=== PATIENT | male | born 1945 | race Caucasian/White ===

== ENCOUNTER 2017-10-11 11:10 | Day surgery (SDC) | payer BC, OTHER ==
[2017-10-09 14:56] LABS: Urine Appearance CLEAR; Urine Bilirubin NEGATIVE (NEG); Urine Blood NEGATIVE (NEG); Urine Color YELLOW; Urine Glucose NEGATIVE (NEG); Urine Protein NEGATIVE (NEG); Urine Urobilinogen 0.2 mg/dL (0.2-1.0); Urine pH 7.5 (5.0-7.0)
[2017-10-09 14:59] LABS: Urine Microscopic Reflex NO UMIC
[2017-10-09 15:05] LABS: Absolute Lymphocytes (CBC) 1.2 K/uL (0.7-4.9); Absolute Monocytes 0.6 K/uL (0.1-1.3); Absolute Neutrophil 3.8 K/uL (1.8-8.0); Basophils % 0.4 % (0-1.3); Eosinophils % 3.3 % (0-4.4); Hematocrit 45.1 % (39.6-49.0); Lymphocytes % 20.7 % (15.3-44.8); MCH 29.3 pg (27.0-35.0); MCV 90.2 fL (80-100); MPV 7.6 fL (7.6-11.3); Monocytes % 9.8 % (3.3-12.3)
[2017-10-09 15:24] LABS: Protime INR 1.01
--- NOTE | 2017-10-09 15:30 | RAD REPORT ---
EXAM DESCRIPTION: RADOP - Outpt Chest Pa/Lat (2 Views) - 10/09/2017 2:52 pm CLINICAL HISTORY: Preop chest, hypertension COMPARISON: None. TECHNIQUE: PA and lateral views of the chest were obtained. FINDINGS: The lungs are normal volume. Patient has prominent interstitial lung disease. No one focal consolidation or mass. Failure is not suspected. Heart size is normal and central vasculature is wi thin normal limits. No pleural effusion or pneumothorax seen. Thoracic spine bony degenerative change s are present. Aortic tortuosity is present without aneurysm. IMPRESSION: Interstitial thickening is present throughout both lung cruz with relative sparing of the lower left lung field. In the absence of acute respiratory symptoms, this is mostly extensive interstitial fibrosis. No failure or suspicious mass.
[2017-10-09 15:33] LABS: BUN Blood Urea Nitrogen 10 mg/dL (6-20); Bicarbonate 25 mEq/L (21-31); Glomerular Filtration Rate > 90 mL/min (=/>90); Glucose Level 104 mg/dL (65-120); Potassium 4.2 mEq/L (3.6-5.0); Sodium Level 136 mEq/L (135-145)
--- NOTE | 2017-10-09 15:35 | EKG ---
Test Date: 2017-10-09 Test Time: 14:40:08 Brand Protection Manager: ANNE MEASUREMENT RESULTS: Intervals: Rate: 66 GA: 142 QRSD: 70 QT: 408 QTc: 427 [place]: P: -29 GA: 142 QRS: -17 T: 9 INTERPRETIVE STATEMENTS: Sinus rhythm with premature atrial complexes Otherwise normal ECG Compared to ECG 12/11/2003 06:34:00 Atrial premature complex(es) now present Electronically Signed On 10-09-17 15:34:16 CDT by Anastacio Garcia
[2017-10-11] MEDS ORDERED: GENTAMICIN 80 MG/100 ML BAG 80 MG/100 ML BAG IV ONE (12:08)
[2017-10-11] MEDS ORDERED: Ringers Lactate 1,000 ML IV ONE (12:08)
[2017-10-11] MEDS ORDERED: PROPOFOL 200 MG/20 ML VIAL IV ONE (12:12)
[2017-10-11] MEDS ORDERED: FENTANYL CITR 100 MCG/2 ML ONE ×2 (12:13→14:05)
[2017-10-11] MEDS ORDERED: ONDANSETRON 4 MG/2 ML VIAL ONE (12:14)
[2017-10-11] MEDS ORDERED: LIDOCAINE 2% MPF 5 ML VIAL ONE (12:14)
[2017-10-11] MEDS ORDERED: PHENAZOPYRIDINE 100MG TAB PO ONE (15:02)
[2017-10-11] MEDS ORDERED: OXYBUTYNIN CHLORIDE 5 MG TAB ONE (15:05)
[2017-10-11] MEDS ORDERED: MIDAZOLAM HCL 2 MG/2 ML INJ ONE (15:08)
[2017-10-11] MEDS ORDERED: HYDROCODONE/APAP 10/325 TAB ONE (15:51)
== END 2017-10-11 16:30 | disposition home or self-care (01) ==
LOC: OR 11:10
PROVIDERS: ATTEND Urology
DX: I10 Essential (primary) hypertension; N40.1 Benign prostatic hyperplasia with lower urinary tract symptoms; E78.00 Pure hypercholesterolemia, unspecified; K21.9 Gastro-esophageal reflux disease without esophagitis; R39.12 Poor urinary stream
CPT/HCPCS: 36415; 52601; 71046; 80048; 81003; 85025; 85610; 85730; 87086; 87088; 88305; 93005; J1580; J2250; J2405; J3010 ×2

== ENCOUNTER 2018-03-13 04:47 | Emergency (ER) | payer OTHER, BC ==
[2018-03-13 05:40] LABS: Absolute Lymphocytes (CBC) 0.8 K/uL (0.7-4.9); Absolute Monocytes 0.4 K/uL (0.1-1.3); Basophils % 0.5 % (0-1.3); Hematocrit 42.5 % (39.6-49.0); MCH 30.2 pg (27.0-35.0); MCV 88.7 fL (80-100); MPV 7.6 fL (7.6-11.3); Monocytes % 12.4 % (3.3-12.3); RBC Red Blood Cell Count 4.79 M/uL (4.33-5.43)
[2018-03-13 06:01] LABS: ALT/SGPT 30 U/L (12-78); AST/SGOT 19 U/L (15-37); Albumin 3.4 g/dL (3.4-5.0); Alkaline Phosphatase 79 U/L (45-117); Amylase Level 33 U/L (25-115); BUN Blood Urea Nitrogen 8 mg/dL (7-18); Bicarbonate 24 mmol/L (21-32); Bilirubin Direct < 0.1 mg/dL (0-0.2); Bilirubin Total 0.4 mg/dL (0.2-1.0); CKMB Creatine Kinase MB < 1.0 ng/mL (0.3-3.6); Creatine Phosphokinase 59 U/L (39-308); Glucose Level 115 mg/dL (74-106); Lipase 90 U/L (73-393); Magnesium 2.4 mg/dL (1.8-2.4); NT PRO-BNP 120 pg/mL (<125); Potassium 3.6 mmol/L (3.5-5.1); Protein, Total 7.2 g/dL (6.4-8.2); Sodium Level 142 mmol/L (136-145)
--- NOTE | 2018-03-13 08:06 | EDPHYS ---
Physician Documentation [facility] Name: Randall Chaves Age: 72 yrs Sex: Male : 1945 Arrival Date: 03/13/2018 Time: 04:49 Bed 7 Private MD: ED Physician Luis F Mendez HPI: 03/13 06:40 This 72 yrs old Male presents to ER via EMS with complaints of Chest tw4 Congestion. 06:40 The patient or guardian reports cough. Onset: The symptoms/episode began/occurred tw4 today. Severity of symptoms: At their worst the symptoms were moderate, in the emergency department the symptoms are unchanged. Modifying factors: The symptoms are alleviated by nothing, the symptoms are aggravated by nothing. Associated signs and symptoms: The patient has no apparent associated signs or symptoms. The patient has not experienced similar symptoms in the past. Historical: - Allergies: 04:55 No Known Allergies; ao - Home Meds: 04:55 Lipitor Oral [Active]; Metoprolol Tartrate Oral [Active]; losartan oral oral [Active]; ao atorvastatin oral oral [Active]; - PMHx: 04:55 Hyperlipidemia; Hypertension; ao - PSHx: 04:55 Prostate; ao - Immunization history:: Adult Immunizations up to date. - Social history:: Smoking status: Patient/guardian denies using tobacco, Patient uses alcohol, occasionally. Patient/guardian denies using street drugs, IV drugs. - Ebola Screening: : Patient negative for fever greater than or equal to 101.5 degrees Fahrenheit, and additional compatible Ebola Virus Disease symptoms Patient denies exposure to infectious person Patient denies travel to an Ebola-affected area in the 21 days before illness onset. ROS: 06:40 Constitutional: Negative for fever, chills, and weight loss, Cardiovascular: Negative tw4 for chest pain, palpitations, and edema, Abdomen/GI: Negative for abdominal pain, nausea, vomiting, diarrhea, and constipation. 06:40 MS/Extremity: Negative for injury and deformity, Skin: Negative for injury, rash, and discoloration. 06:40 Respiratory: Positive for Exam: 06:40 Constitutional: This is a well developed, well nourished patient who is awake, alert, tw4 and in no acute distress. Head/Face: Normocephalic, atraumatic. Chest/axilla: Normal chest wall appearance and motion. Nontender with no deformity. No lesions are appreciated. Cardiovascular: Regular rate and rhythm with a normal S1 and S2. No gallops, murmurs, or rubs. Normal PMI, no JVD. No pulse deficits. Respiratory: Lungs have equal breath sounds bilaterally, clear to auscultation and percussion. No rales, rhonchi or wheezes noted. No increased work of breathing, no retractions or nasal flaring. Abdomen/GI: Soft, non-tender, with normal bowel sounds. No distension or tympany. No guarding or rebound. No evidence of tenderness throughout. MS/ Extremity: Pulses equal, no cyanosis. Neurovascular intact. Full, normal range of motion. Neuro: Awake and alert, GCS 15, oriented to person, place, time, and situation. Cranial nerves II-XII grossly intact. Motor strength 5/5 in all extremities. Sensory grossly intact. Cerebellar exam normal. Normal gait. Vital Signs: 04:57 BP 151 / 91; Pulse 60; Resp 18; Temp 97.3(TE); Pulse Ox 96% on R/A; Weight 106.59 kg; ao Height 5 ft. 9 in. (175.26 cm); Pain 0/10; 06:15 BP 129 / 98; Pulse 57; Resp 16; Pulse Ox 93% on R/A; Pain 0/10; ao 07:00 BP 144 / 80; Pulse 57; Resp 17; Pulse Ox 95% on R/A; Pain 0/10; sg 08:27 BP 132 / 87; Pulse 58; Resp 18; Temp 97.4; Pulse Ox 97% on R/A; ph 04:57 Body Mass Index 34.70 (106.59 kg, 175.26 cm) ao MDM: 04:55 Patient medically screened. tw4 08:04 Differential Diagnosis: Bronchitis Influenza. Data reviewed: vital signs, nurses notes. tw4 Data interpreted: Pulse oximetry: Interpretation: normal. Counseling: I had a detailed discussion with the patient and/or guardian regarding: the historical points, exam findings, and any diagnostic results supporting the discharge/admit diagnosis. Special discussion: I discussed with the patient/guardian in detail that at this point there is no indication for admission to the hospital. It is understood, however, that if the symptoms persist or worsen the patient needs to return immediately for re-evaluation. 03/13 04:56 Order name: Amylase, Serum; Complete Time: 08:00 03/13 04:56 Order name: Blood Culture Adult (2) 03/13 04:56 Order name: BMP; Complete Time: 08:00 03/13 08:00 Interpretation: Normal except: CL 110; GFR 83; GLUC 115. 03/13 04:56 Order name: CBC with Diff; Complete Time: 08:00 03/13 08:00 Interpretation: WBC 3.5; MPV 7.6. 03/13 04:56 Order name: Ckmb; Complete Time: 08:00 03/13 04:56 Order name: CPK; Complete Time: 08:00 03/13 04:56 Order name: D-Dimer; Complete Time: 08:00 03/13 08:02 Interpretation: Normal except: D-DIMER 949. 03/13 04:56 Order name: Hepatic Function; Complete Time: 08:00 03/13 04:56 Order name: Lipase; Complete Time: 08:00 03/13 04:56 Order name: Magnesium; Complete Time: 08:00 03/13 04:56 Order name: NT PRO-BNP; Complete Time: 08:00 03/13 04:56 Order name: PT-INR; Complete Time: 08:00 03/13 04:56 Order name: Ptt, Activated; Complete Time: 08:00 03/13 04:56 Order name: Troponin (emerg Dept Use Only); Complete Time: 08:00 03/13 04:56 Order name: XRAY CXR (1 view) 03/13 04:56 Order name: EKG; Complete Time: 04:57 03/13 04:56 Order name: Cardiac monitoring; Complete Time: 05:17 03/13 04:56 Order name: EKG - Nurse/Tech; Complete Time: 05:30 03/13 04:56 Order name: IV Saline Lock; Complete Time: 05:17 03/13 04:56 Order name: Labs collected and sent; Complete Time: 05:17 03/13 04:56 Order name: O2 Per Protocol; Complete Time: 05:17 03/13 04:56 Order name: O2 Sat Monitoring; Complete Time: :17 4 03/13 05:59 Order name: CT Chest For PE Angio; Complete Time: : EC:57 Rate is 56 beats/min. Rhythm is regular. QRS [place] is Normal. VA interval is normal. QRS tw4 interval is normal. QT interval is normal. No Q waves. T waves are Inverted in leads V3, V4, V5, V6. No ST changes noted. Clinical impression: NSR w/ Non-specific ST/T Changes. Interpreted by me. Reviewed by me. Administered Medications: No medications were administered Disposition: 03/13/18 08:06 Discharged to Home. Impression: Bronchitis, not specified as acute or chronic. - Condition is Stable. - Discharge Instructions: Acute Bronchitis, Adult, How to Use an Inhaler, Metered Dose Inhaler with Spacer. - Prescriptions for Zithromax Z- Virgil 250 mg Oral Tablet - take 1 tablet by ORAL route as directed for 5 days Day 1 - take two (2) tablets one time. Day 2, 3, 4 , 5 take one (1) tablet once daily.; 6 tablet. Guaifenesin AC 10- 100 mg/5 mL Oral Liquid - take 10 milliliter by ORAL route every 4 hours As needed; 240 milliliter. Albuterol Sulfate 90 mcg/actuation - inhale 1-2 puff by INHALATION route every 4-6 hours; 1 Inhaler. - Medication Reconciliation Form, Thank You Letter, Antibiotic Education, Prescription Opioid Use form. - Follow up: Private Physician; When: Upon discharge from the Emergency Department; Reason: Further diagnostic work-up, Recheck today's complaints, Re-evaluation by your physician. - Problem is new. - Symptoms have improved. Signatures: Dispatcher [employer] EDMS Juancarlos Marie MD MD rn Hall, Patricia, RN RN ph Ortiz, Alex, RN RN ao Wadley, Terrence, MD MD tw4 Corrections: (The following items were deleted from the chart) 08:27 08:06 03/13/2018 08:06 Discharged to Home. Impression: Bronchitis, not specified as ph acute or chronic. Condition is Stable. Forms are Medication Reconciliation Form, Thank You Letter, Antibiotic Education, Prescription Opioid Use. Follow up: Private Physician; When: Upon discharge from the Emergency Department; Reason: Further diagnostic work-up, Recheck today's complaints, Re-evaluation by your physician. Problem is new. Symptoms have improved. tw4
--- NOTE | 2018-03-13 08:06 | ER ---
Nurse's Notes [facility] Name: Randall Chaves Age: 72 yrs Sex: Male : 1945 Arrival Date: 03/13/2018 Time: 04:49 Bed 7 Private MD: Diagnosis: Bronchitis, not specified as acute or chronic Presentation: 03/13 04:50 Presenting complaint: EMS states: Patient woke up with difficulty breathing. Patient ao was sating at 99% RA. Patient report being congested for the past few days and report non-productive cough. Transition of care: patient was not received from another setting of care. Onset of symptoms is unknown. Risk Assessment: Do you want to hurt yourself or someone else? Patient reports no desire to harm self or others. Initial Sepsis Screen: Does the patient meet any 2 criteria? No. Patient's initial sepsis screen is negative. Does the patient have a suspected source of infection? No. Patient's initial sepsis screen is negative. Care prior to arrival: None. 04:50 Method Of Arrival: EMS: [facility] ao 04:50 Acuity: CANDIDA 3 ao Historical: - Allergies: 04:55 No Known Allergies; ao - Home Meds: 04:55 Lipitor Oral [Active]; Metoprolol Tartrate Oral [Active]; losartan oral oral [Active]; ao atorvastatin oral oral [Active]; - PMHx: 04:55 Hyperlipidemia; Hypertension; ao - PSHx: 04:55 Prostate; ao - Immunization history:: Adult Immunizations up to date. - Social history:: Smoking status: Patient/guardian denies using tobacco, Patient uses alcohol, occasionally. Patient/guardian denies using street drugs, IV drugs. - Ebola Screening: : Patient negative for fever greater than or equal to 101.5 degrees Fahrenheit, and additional compatible Ebola Virus Disease symptoms Patient denies exposure to infectious person Patient denies travel to an Ebola-affected area in the 21 days before illness onset. Screenin:33 Abuse screen: Denies threats or abuse. Denies injuries from another. Nutritional ao screening: No deficits noted. Tuberculosis screening: No symptoms or risk factors identified. Fall Risk None identified. Assessment: 04:58 General: Appears in no apparent distress. comfortable, Behavior is calm, cooperative, ao appropriate for age. Pain: Denies pain. Neuro: Level of Consciousness is awake, alert, obeys commands, Oriented to person, place, time, situation, Appropriate for age Moves all extremities. Full function Speech is normal, Facial symmetry appears normal. Cardiovascular: Capillary refill < 3 seconds Patient's skin is warm and dry. Respiratory: Airway is patent Respiratory effort is even, unlabored, Respiratory pattern is regular, symmetrical. GI: Abdomen is non-distended. : No signs and/or symptoms were reported regarding the genitourinary system. EENT: No signs and/or symptoms were reported regarding the EENT system. Derm: Skin is pink, warm \T\ dry. normal, Skin temperature is warm. Musculoskeletal: No signs and/or symptoms reported regarding the musculoskeletal system. 06:15 Reassessment: Patient appears in no apparent distress at this time. Patient and/or ao family updated on plan of care and expected duration. Pain level reassessed. Patient is alert, oriented x 3, equal unlabored respirations, skin warm/dry/pink. Patient to go for CT. 07:00 Reassessment: Patient appears in no apparent distress at this time. Patient and/or sg family updated on plan of care and expected duration. Pain level reassessed. Patient is alert, oriented x 3, equal unlabored respirations, skin warm/dry/pink. pt laying supine on exam stretcher, eyes closed, resp even unlabored, srx2, call light remains within reach, pt on monitors at this time, awaiting results from CT scan. no new orders received will continue to monitor. 07:29 Reassessment: Patient appears in no apparent distress at this time. Patient and/or ph family updated on plan of care and expected duration. Pain level reassessed. Patient is alert, oriented x 3, equal unlabored respirations, skin warm/dry/pink. PT resting quietly, awaiting CT results. 08:24 Reassessment: Patient appears in no apparent distress at this time. Patient and/or ph family updated on plan of care and expected duration. Pain level reassessed. Patient is alert, oriented x 3, equal unlabored respirations, skin warm/dry/pink. Pt d/c home w/ prescriptions Patient states feeling better. Vital Signs: 04:57 BP 151 / 91; Pulse 60; Resp 18; Temp 97.3(TE); Pulse Ox 96% on R/A; Weight 106.59 kg; ao Height 5 ft. 9 in. (175.26 cm); Pain 0/10; 06:15 BP 129 / 98; Pulse 57; Resp 16; Pulse Ox 93% on R/A; Pain 0/10; ao 07:00 BP 144 / 80; Pulse 57; Resp 17; Pulse Ox 95% on R/A; Pain 0/10; sg 08:27 BP 132 / 87; Pulse 58; Resp 18; Temp 97.4; Pulse Ox 97% on R/A; ph 04:57 Body Mass Index 34.70 (106.59 kg, 175.26 cm) ao Vitals: 07:00 Cardiac Rhythm Assessment Sinus teddy. sg ED Course: 04:49 Patient arrived in ED. aa1 04:50 Lior Lee, RN is Primary Nurse. ao 04:52 Triage completed. ao 04:55 Luis F Mendez MD is Attending Physician. tw4 04:58 Arm band placed on right wrist. Patient placed in an exam room, on a stretcher, on ao milk pickup driver, on pulse oximetry, Patient notified of wait time. 05:01 Patient has correct armband on for positive identification. Pulse ox on. NIBP on. ao 05:07 Inserted saline lock: 20 gauge in right antecubital area, using aseptic technique. ao Blood collected. 05:16 X-ray completed. Portable x-ray completed in exam room. Patient tolerated procedure kw well. 05:17 XRAY CXR (1 view) In Process Unspecified. EDMS 06:35 CT completed. Patient tolerated procedure well. Patient moved to CT via stretcher. Patient moved back from CT. 06:39 CT Chest For PE Angio In Process Unspecified. EDMS 06:59 Report given to Report given to ALICIA Owens and ALICIA Carias. ao 07:28 Jv Jay, RN is Primary Nurse. sg 08:25 No provider procedures requiring assistance completed. IV discontinued, intact, ph bleeding controlled, No redness/swelling at site. Pressure dressing applied. Administered Medications: No medications were administered Outcome: 08:06 Discharge ordered by . tw4 08:26 Discharged to home ambulatory. ph 08:26 Condition: good 08:26 Discharge instructions given to patient, Instructed on discharge instructions, follow up and referral plans. medication usage, Demonstrated understanding of instructions, follow-up care, medications, Prescriptions given X 3. 08:27 Patient left the ED. ph Signatures: Dispatcher [employer] EDMS Jv Jay, RN RN Mei Robles RN RN aa1 Arnaud Jauregui Kimberlee kw Hall, Patricia RN RN Lior Lee RN Luis F Osorio MD MD tw4
--- NOTE | 2018-03-13 08:09 | RAD REPORT ---
EXAM DESCRIPTION: CT - Chest For Pe Angio - 03/13/2018 6:39 am CLINICAL HISTORY: Chest pain. COUGH COMPARISON: Chest Single View dated 03/13/2018; Outpt Chest Pa/Lat (2 Views) dated 10/09/2017 TECHNIQUE: CT angiogram of the pulmonary arteries was performed with MIP. All CT scans are performed using dose optimization technique as appropriate and may include automated exposure control or mA/KV adjustment according to patient size. FINDINGS: No evidence of pulmonary thromboembolism. No acute aortic finding demonstrated. Bilateral interstitial and alveolar lung opacities are present, likely chronic. Mildly prominent lymp h nodes are seen in the mediastinum and anay. No significant pericardial or pleural fluid. No concerning bony finding. IMPRESSION: No evidence of pulmonary thromboembolism. Mild bilateral interstitial lung opacities, greatest in the left apex with associated mediastinal and hilar lymphadenopathy. Findings are favored to represent chronic interstitial lung disease.
--- NOTE | 2018-03-13 08:37 | RAD REPORT ---
EXAM DESCRIPTION: RAD - Chest Single View - 03/13/2018 5:18 am CLINICAL HISTORY: CONGESTION Chest pain. COMPARISON: Outpt Chest Pa/Lat (2 Views) dated 10/09/2017 FINDINGS: Portable technique limits examination quality. Prominent interstitial markings are present bilaterally, chronic. The heart is normal in size. No dis placed fractures.Mildly tortuous thoracic aorta. IMPRESSION: Chronic bilateral interstitial lung markings.
--- NOTE | 2018-03-13 12:46 | EKG ---
Test Date: 2018-03-13 Test Time: 05:21:27 Email Administrator: HELENE MEASUREMENT RESULTS: Intervals: Rate: 56 WA: 170 QRSD: 72 QT: 406 QTc: 391 [place]: P: -9 WA: 170 QRS: -12 T: -20 INTERPRETIVE STATEMENTS: Sinus bradycardia Minimal voltage criteria for LVH, may be normal variant Nonspecific T wave abnormality Abnormal ECG Compared to ECG 10/09/2017 14:40:08 Left ventricular hypertrophy now present T-wave abnormality now present Sinus rhythm no longer present Atrial premature complex(es) no longer present Electronically Signed On 03-13-18 12:44:18 CDT by Sander Torres
== END 2018-03-13 08:27 | disposition home or self-care (01) ==
LOC: ER 04:47
DX: J40 Bronchitis, not specified as acute or chronic (principal); I10 Essential (primary) hypertension; E78.5 Hyperlipidemia, unspecified
CPT/HCPCS: 36415; 71045; 71275; 80048; 80076; 82150; 82550; 82553; 83690; 83735; 83880; 84484; 85025; 85379; 85610; 85730; 87040 ×2; 93005; Q9967; 99284

== ENCOUNTER 2018-03-17 15:54 | Emergency (ER) | payer OTHER, BC ==
[2018-03-17] MEDS ORDERED: METHYLPREDNISOLONE 125 MG INJ ONE (18:33)
[2018-03-17] MEDS ORDERED: ALBUTEROL 2.5 MG/3 ML NEB SOL ONE (18:33)
--- NOTE | 2018-03-17 18:33 | RAD REPORT ---
EXAM DESCRIPTION: Marcia Pa And Lat (2 Views)03/17/2018 6:01 pm CLINICAL HISTORY: Cough COMPARISON: September 2017 FINDINGS: No significant change has occurred in moderate bilateral pulmonary opacities. The heart is normal size IMPRESSION: No significant change in moderate bilateral pulmonary opacities. I suspect most if not a ll of this is chronic.
[2018-03-17] MEDS ORDERED: IPRATROPIUM BROM 0.5MG/2.5ML ONE (18:34)
[2018-03-17 18:57] LABS: Absolute Lymphocytes (CBC) 0.9 K/uL (0.7-4.9); Absolute Monocytes 0.4 K/uL (0.1-1.3); Absolute Neutrophil 4.4 K/uL (1.8-8.0); Basophils % 0.3 % (0-1.3); Hematocrit 42.9 % (39.6-49.0); Lymphocytes % 14.7 % (15.3-44.8); MCH 30.3 pg (27.0-35.0); MCV 90.2 fL (80-100); MPV 7.4 fL (7.6-11.3); Monocytes % 7.6 % (3.3-12.3); RBC Red Blood Cell Count 4.76 M/uL (4.33-5.43)
[2018-03-17 19:12] LABS: BUN Blood Urea Nitrogen 11 mg/dL (7-18); Bicarbonate 25 mmol/L (21-32); Glucose Level 98 mg/dL (74-106); Potassium 3.7 mmol/L (3.5-5.1); Sodium Level 143 mmol/L (136-145)
--- NOTE | 2018-03-17 19:20 | ER ---
Nurse's Notes [facility] Name: Randall Chaves Age: 72 yrs Sex: Male : 1945 Arrival Date: 03/17/2018 Time: 15:56 Bed 4 Private MD: Lawrence Medel E Diagnosis: Bronchitis, not specified as acute or chronic Presentation: 03/17 15:58 Presenting complaint: Patient states: "I don't feel like I can breathe again like last sv time. They said I have bronchitis.". Transition of care: patient was not received from another setting of care. Onset of symptoms was March 17, 2018. Care prior to arrival: None. 15:58 Method Of Arrival: Ambulatory sv 15:58 Acuity: CANDIDA 3 sv 18:37 Risk Assessment: Do you want to hurt yourself or someone else? Patient reports no ph desire to harm self or others. Initial Sepsis Screen: Does the patient meet any 2 criteria? No. Patient's initial sepsis screen is negative. Does the patient have a suspected source of infection? No. Patient's initial sepsis screen is negative. Triage Assessment: 18:38 Respiratory: the patient has mild shortness of breath. ph 19:48 Respiratory: Onset: The symptoms/episode began/occurred at an unknown time. ao Historical: - Allergies: 16:00 No Known Allergies; sv - Home Meds: 16:00 atorvastatin Oral [Active]; Lipitor Oral [Active]; losartan Oral [Active]; Metoprolol sv Tartrate Oral [Active]; - PMHx: 16:00 Hyperlipidemia; Hypertension; sv - PSHx: 16:00 Prostate; sv - Immunization history:: Adult Immunizations up to date. - Social history:: Smoking status: Patient/guardian denies using tobacco. - Ebola Screening: : No symptoms or risks identified at this time. Screenin:37 Abuse screen: Denies threats or abuse. Denies injuries from another. Nutritional ph screening: No deficits noted. Tuberculosis screening: No symptoms or risk factors identified. Fall Risk None identified. Assessment: 17:30 General: Appears in no apparent distress. comfortable, well groomed, Behavior is calm, ph cooperative, appropriate for age, Reports States, " I had an episode earlier where I felt very SOB, like my throat was narrowed up. I'm not feeling like that now though. I am thinking it may have been anxiety because my has been in the hospital for a month." Denies fever. Pain: Denies pain. Neuro: Level of Consciousness is awake, alert, obeys commands, Oriented to person, place, time, situation. Cardiovascular: Reports shortness of breath, Denies chest pain, nausea, vomiting, Capillary refill < 3 seconds in bilateral fingers Patient's skin is warm and dry. Rhythm is sinus rhythm. Respiratory: Reports shortness of breath cough that is productive, Airway is patent Respiratory effort is even, unlabored, Respiratory pattern is regular, symmetrical, Sputum is thick, clear yellow Breath sounds are clear bilaterally. GI: No signs and/or symptoms were reported involving the gastrointestinal system. Derm: Skin is intact, is healthy with good turgor, Skin is pink, warm \\T\\ dry. Musculoskeletal: Circulation, motion, and sensation intact. Range of motion: intact in all extremities. Vital Signs: 16:01 BP 121 / 72; Pulse 78; Resp 28; Temp 98.1; Pulse Ox 97% ; sv 18:00 BP 121 / 76; Pulse 61; Resp 18; Pulse Ox 98% on R/A; ph Vitals: 18:00 Cardiac Rhythm Assessment Sinus rhythm. ph ED Course: 15:56 Patient arrived in ED. sb2 15:56 Lawrence Medel MD is Private Physician. sb2 16:00 Triage completed. sv 16:01 Arm band placed on left wrist. sv 16:03 Patient placed in waiting room, Patient notified of wait time. sv 17:11 Georges Acosta RN is Primary Nurse. la1 17:12 Gucci Gold PA is PHCP. cp 17:12 Lawrence Hook MD is Attending Physician. cp 17:59 X-ray completed. Patient tolerated procedure well. kw 17:59 XRAY Chest Pa And Lat (2 Views) In Process Unspecified. EDMS 18:35 Initial lab(s) drawn, by me, sent to lab. Inserted saline lock: 20 gauge in left sv antecubital area, using aseptic technique. Blood collected. Flushed left antecubital with 5 ml normal saline. 18:37 Patient has correct armband on for positive identification. Placed in gown. Bed in low ph position. Call light in reach. Side rails up X 1. Side rails up X2. coach operator on. Pulse ox on. NIBP on. Warm blanket given. 19:47 No provider procedures requiring assistance completed. IV discontinued, intact, ao bleeding controlled, No redness/swelling at site. Pressure dressing applied. Administered Medications: 18:30 Drug: Albuterol - atroVENT (3:1) (2.5 mg - 0.5 mg) 3 ml Route: Nebulizer; sv 18:31 Drug: SOLU-Medrol 125 mg Route: IVP; Site: left antecubital; sv Outcome: 19:19 Discharge ordered by MD. cp 19:48 Discharged to home ambulatory. ao 19:48 Condition: stable 19:48 Discharge instructions given to patient, Instructed on discharge instructions, follow up and referral plans. Demonstrated understanding of instructions, follow-up care, medications, Prescriptions given X 3. 19:48 Patient left the ED. ao Signatures: Dispatcher [employer] EDMS Natalee Hoffmann RN RN sv Whitley, Kimberlee kw Attema, Lee, RN RN la1 Graciela Marrero RN RN ph Gucci Gold, RAFIQ PA Lior Pyle RN RN ao Suma Thao sb2 Corrections: (The following items were deleted from the chart) 16:02 16:01 BP 121 / 72; Pulse 78bpm; Resp 28bpm; Pulse Ox 97%; sv sv
--- NOTE | 2018-03-17 19:20 | EDPHYS ---
Physician Documentation [facility] Name: Randall Chaves Age: 72 yrs Sex: Male : 1945 Arrival Date: 03/17/2018 Time: 15:56 Bed 4 Private MD: Lawrence Medel E ED Physician Lawrence Hook HPI: 03/17 17:21 This 72 yrs old Male presents to ER via Ambulatory with complaints of cp Breathing Difficulty. 17:21 The patient has shortness of breath with light activity. cp 17:21 Onset: The symptoms/episode began/occurred gradually. Duration: The symptoms are cp continuous. Associated signs and symptoms: Pertinent positives: non-productive cough, Pertinent negatives: chest pain, diaphoresis, fever, hemoptysis. Severity of symptoms: in the emergency department the symptoms are unchanged despite home interventions. 17:21 The patient has been recently seen at the [facility] Emergency cp Department, this week, for similar complaints labs were performed, X-rays were performed, CT scan was performed, was given a prescription for antibiotics. Historical: - Allergies: 16:00 No Known Allergies; sv - Home Meds: 16:00 atorvastatin Oral [Active]; Lipitor Oral [Active]; losartan Oral [Active]; Metoprolol sv Tartrate Oral [Active]; - PMHx: 16:00 Hyperlipidemia; Hypertension; sv - PSHx: 16:00 Prostate; sv - Immunization history:: Adult Immunizations up to date. - Social history:: Smoking status: Patient/guardian denies using tobacco. - Ebola Screening: : No symptoms or risks identified at this time. ROS: 17:25 Constitutional: Negative for body aches, chills, fever, poor PO intake. cp 17:25 Eyes: Negative for injury, pain, redness, and discharge. cp 17:25 ENT: Negative for drainage from ear(s), ear pain, sore throat, difficulty swallowing, difficulty handling secretions. 17:25 Cardiovascular: Negative for chest pain, edema, palpitations. 17:25 Respiratory: Positive for cough, "sounds productive", shortness of breath, Negative for hemoptysis, orthopnea, wheezing. 17:25 Abdomen/GI: Negative for abdominal pain, nausea, vomiting, and diarrhea, constipation, black/tarry stool, rectal bleeding. 17:25 Back: Negative for pain at rest, pain with movement, radiated pain. 17:25 : Negative for urinary symptoms. 17:25 Skin: Negative for cellulitis, rash. 17:25 Neuro: Negative for altered mental status, dizziness, headache, syncope, weakness. 17:25 All other systems are negative. Exam: 17:30 Constitutional: The patient appears in no acute distress, alert, awake, cp non-diaphoretic, well developed, well nourished. 17:30 Head/Face: Normocephalic, atraumatic. cp 17:30 Eyes: Periorbital structures: appear normal, Conjunctiva: normal, no exudate, no injection, Sclera: no appreciated abnormality, Lids and lashes: appear normal, bilaterally. 17:30 ENT: External ear(s): are unremarkable, Ear canal(s): are normal, clear, TM's: bulging, is not appreciated, dullness, bilaterally, erythema, is not appreciated, bilaterally, Nose: is normal, Mouth: Lips: moist, Oral mucosa: pink and intact, moist, Posterior pharynx: is normal, airway is patent, no erythema, no exudate. 17:30 Neck: ROM/movement: is normal, is supple, without pain, no range of motions limitations, no nuchal rigidity, Lymph nodes: no appreciated lymphadenopathy. 17:30 Chest/axilla: Inspection: normal, Palpation: is normal, no crepitus, no tenderness. 17:30 Cardiovascular: Rate: normal, Rhythm: regular, Heart sounds: murmur, not appreciated, rub, not appreciated, gallop, not appreciated, Edema: is not appreciated, JVD: is not appreciated. 17:30 Respiratory: the patient does not display signs of respiratory distress, Respirations: labored breathing, is not present, shallow respirations, are not present, splinting, is not noted, tachypnea, is not appreciated, Breath sounds: bronchial sounds, that are mild, are heard diffusely, rhonchi, are not appreciated, stridor, is not appreciated, wheezing: is not appreciated. 17:30 Abdomen/GI: Inspection: abdomen appears normal, Palpation: abdomen is soft and non-tender, in all quadrants. 17:30 Back: pain, is absent, ROM is normal. 17:30 Skin: cellulitis, is not appreciated, no rash present. 17:30 Neuro: Orientation: to person, place \\T\\ time. Mentation: lucid, able to follow commands, Cerebellar function: is grossly normal, Motor: moves all fours, strength is normal, Sensation: no obvious gross deficits. Vital Signs: 16:01 BP 121 / 72; Pulse 78; Resp 28; Temp 98.1; Pulse Ox 97% ; sv 18:00 BP 121 / 76; Pulse 61; Resp 18; Pulse Ox 98% on R/A; ph MDM: 17:12 Patient medically screened. cp 18:00 Differential diagnosis: asthma, Bronchitis CHF exacerbation, Chronic Obstructive cp Pulmonary Disease pneumonia, pulmonary edema, Pulmonary Embolism. 19:18 Data reviewed: vital signs, nurses notes, old medical records, labs, radiology reports cp and notes from previous visit lab test result(s), radiologic studies, plain films. 19:18 Test interpretation: by ED physician or midlevel provider: plain radiologic studies. cp Counseling: I had a detailed discussion with the patient and/or guardian regarding: the historical points, exam findings, and any diagnostic results supporting the discharge/admit diagnosis, lab results, radiology results, the need for outpatient follow up, a family practitioner, a process cheese cooker, to return to the emergency department if symptoms worsen or persist or if there are any questions or concerns that arise at home. Response to treatment: the patient's symptoms have markedly improved after treatment, and as a result, I will discharge patient. 03/17 17:21 Order name: CBC with Diff; Complete Time: 19:18 03/17 19:18 Interpretation: Normal except: WBC 5.8; MPV 7.4; BILLY% 75.4; LYM% 14.7. 03/17 17:21 Order name: BMP; Complete Time: 19:18 cp 03/17 19:18 Interpretation: Normal except: CL 109. 03/17 17:21 Order name: XRAY Chest Pa And Lat (2 Views); Complete Time: 18:33 03/17 18:33 Interpretation: Report reviewed. 03/17 17:21 Order name: IV; Complete Time: 18:44 cp Administered Medications: 18:30 Drug: Albuterol - atroVENT (3:1) (2.5 mg - 0.5 mg) 3 ml Route: Nebulizer; sv 18:31 Drug: SOLU-Medrol 125 mg Route: IVP; Site: left antecubital; sv Disposition: 03/17/18 19:19 Discharged to Home. Impression: Bronchitis, not specified as acute or chronic. - Condition is Stable. - Discharge Instructions: Acute Bronchitis, Adult, How to Use an Inhaler. - Prescriptions for Augmentin 875- 125 mg Oral Tablet - take 1 tablet by ORAL route every 12 hours for 10 days; 20 tablet. Medrol (Ivrgil) 4 mg Oral Tablets, Dose Pack - take 1 tablet by ORAL route as directed - follow package instructions; 1 packet. Albuterol Sulfate 90 mcg/actuation - inhale 1-2 puff by INHALATION route every 4-6 hours; 1 Inhaler. Tessalon Perles 100 mg Oral Capsule - take 1 capsule by ORAL route every 8 hours As needed; 15 capsule. - Medication Reconciliation Form, Thank You Letter, Antibiotic Education, Prescription Opioid Use form. - Follow up: Private Physician; When: 2 - 3 days; Reason: Recheck today's complaints. - Problem is an ongoing problem. - Symptoms have improved. Addendum: 03/19/2018 11:30 Co-signature as Attending Physician, Lawrence Hook MD I agree with the assessment and w a plan of care. Signatures: Dispatcher [employer] Natalee Barr RN RN sv Page, Corey, PA PA cp Ortiz, Alex, RN RN ao Appiah, William, MD MD wa Corrections: (The following items were deleted from the chart) 03/17 19:48 19:19 03/17/2018 19:19 Discharged to Home. Impression: Bronchitis, not specified as ao acute or chronic. Condition is Stable. Forms are Medication Reconciliation Form, Thank You Letter, Antibiotic Education, Prescription Opioid Use. Follow up: Private Physician; When: 2 - 3 days; Reason: Recheck today's complaints. Problem is an ongoing problem. Symptoms have improved. cp
== END 2018-03-17 19:48 | disposition home or self-care (01) ==
LOC: ER 15:54
DX: J40 Bronchitis, not specified as acute or chronic (principal); I10 Essential (primary) hypertension; E78.5 Hyperlipidemia, unspecified
CPT/HCPCS: 36415; 71046; 80048; 85025; 94640; 96374; 99285; J2930

== ENCOUNTER 2018-03-25 17:06 | Emergency (ER) | payer OTHER, BC ==
[2018-03-25 18:07] LABS: Absolute Lymphocytes (CBC) 1.4 K/uL (0.7-4.9); Absolute Monocytes 0.7 K/uL (0.1-1.3); Absolute Neutrophil 4.3 K/uL (1.8-8.0); Basophils % 0.5 % (0-1.3); Eosinophils % 2.7 % (0-4.4); Hematocrit 46.6 % (39.6-49.0); Lymphocytes % 21.7 % (15.3-44.8); MCH 30.4 pg (27.0-35.0); MPV 8.2 fL (7.6-11.3); Monocytes % 10.4 % (3.3-12.3); RBC Red Blood Cell Count 5.24 M/uL (4.33-5.43)
[2018-03-25 18:29] LABS: BUN Blood Urea Nitrogen 19 mg/dL (7-18); Bicarbonate 23 mmol/L (21-32); Glucose Level 107 mg/dL (74-106); Potassium 3.5 mmol/L (3.5-5.1); Sodium Level 142 mmol/L (136-145)
[2018-03-25] MEDS ORDERED: METHYLPREDNISOLONE 125 MG INJ ONE (18:36)
--- NOTE | 2018-03-25 19:07 | RAD REPORT ---
EXAM DESCRIPTION: Pablo Angio03/25/2018 6:46 pm CLINICAL HISTORY: Congestion/stridor;Congestion COMPARISON: None TECHNIQUE: 50 cc Isovue [address] angiogram neck was performed. Coronal and sagittal reconstruction was done. All CT scans are performed using dose optimization technique as appropriate and may include automated exposure control or mA/KV adjustment according to patient size. FINDINGS: Mild plaque is present within the common carotid, internal and external carotid arteries. Mild to moderate calcified plaque is present within the distal left vertebral artery. An occlusion is not seen. The pharynx, larynx, tongue base and subglottic trachea appear unremarkable Spondylosis of the cervical spine results in moderate multilevel foraminal stenosis. IMPRESSION: Mild plaque within the carotid arteries Mild to moderate calcified plaque in the distal left vertebral artery A high-grade stenosis/occlusion is not seen. A dissection is not noted
--- NOTE | 2018-03-25 19:08 | RAD REPORT ---
EXAM DESCRIPTION: Marcia Single View03/25/2018 5:58 pm CLINICAL HISTORY: Congestion;Cough COMPARISON: March 17, 2018 FINDINGS: Bilateral pulmonary opacities are without obvious change The heart is normal size IMPRESSION: Stable bilateral pulmonary opacities. This may represent a pneumonitis acute versus trousseau consultant mireille
[2018-03-25] MEDS ORDERED: ALBUTEROL 2.5 MG/3 ML NEB SOL ONE (19:17)
[2018-03-25] MEDS ORDERED: IPRATROPIUM BROM 0.5MG/2.5ML ONE (19:17)
--- NOTE | 2018-03-25 20:27 | ER ---
Nurse's Notes [facility] Name: Randall Chaves Age: 72 yrs Sex: Male : 1945 Arrival Date: 03/25/2018 Time: 17:09 Bed 7 Private MD: Lawernce Medel E Diagnosis: Acute bronchospasm Presentation: 03/25 17:13 Presenting complaint: Patient states: SOB and cough x 1 week ago. Pt states "my throat aa5 feels like it's going to close up and I am having difficulty swallowing for about 2 weeks". Pt denies pain. Pt reports chills last night. 17:13 Transition of care: patient was not received from another setting of care. Onset of aa5 symptoms was February 2018. Risk Assessment: Do you want to hurt yourself or someone else? Patient reports no desire to harm self or others. Initial Sepsis Screen: Does the patient meet any 2 criteria? No. Patient's initial sepsis screen is negative. Does the patient have a suspected source of infection? No. Patient's initial sepsis screen is negative. Care prior to arrival: None. 17:13 Method Of Arrival: Ambulatory aa5 17:13 Acuity: CANDIDA 3 aa5 Triage Assessment: 19:15 Respiratory: Onset: The symptoms/episode began/occurred sob 1 week ago. cc3 19:15 Respiratory: the patient has mild shortness of breath. cc3 Historical: - Allergies: 17:14 Bees; aa5 - PMHx: 17:14 Hyperlipidemia; Hypertension; aa5 - PSHx: 17:14 Prostate; aa5 - Immunization history:: Adult Immunizations unknown. - Ebola Screening: : No symptoms or risks identified at this time. - Social history:: Smoking status: unknown. Screenin:30 Abuse screen: Denies threats or abuse. Denies injuries from another. Nutritional sg screening: No deficits noted. Tuberculosis screening: No symptoms or risk factors identified. Never had TB. Fall Risk None identified. Assessment: 17:30 General: Appears in no apparent distress. comfortable, well groomed, well developed, sg well nourished, Behavior is calm, cooperative, appropriate for age. Pain: Denies pain. Neuro: Level of Consciousness is awake, Oriented to person, place, time, Thermostat Mechanic are equal bilaterally Moves all extremities. Full function Speech is normal, Facial symmetry appears normal. Cardiovascular: Heart tones S1 S2 present Capillary refill is brisk in bilateral fingers Patient's skin is warm and dry. Chest pain is denied. Respiratory: Reports shortness of breath at rest labored breathing since a few days now Airway is patent Respiratory effort is even, unlabored, Respiratory pattern is regular, symmetrical, Breath sounds are clear. GI: Abdomen is round non-distended, Reports normal bowel habits, tolerance of fluids, tolerance of food. : No signs and/or symptoms were reported regarding the genitourinary system. EENT: No signs and/or symptoms were reported regarding the EENT system. Derm: Skin is pink, warm \\T\\ dry. Musculoskeletal: No signs and/or symptoms reported regarding the musculoskeletal system. 19:00 Reassessment: RECD REPORT FROM VIC VARGAS. 72YO WM P/W SOB, ALL CURRENT ORDERS bp COMPLETED. DISPO PENDING. PT EXPRESSES RELIEF OF S/S. 20:00 Reassessment: ALL CURRENT ORDERS COMPLETED, DISPO PENDING PROVIDER RE-EVAL. NO ACUTE bp S/S AT THIS TIME. 20:00 Cardiovascular: Rhythm is regular. cc3 Vital Signs: 17:13 BP 128 / 81; Pulse 78; Resp 28 S; Temp 98.0(O); Pulse Ox 98% on R/A; Weight 106.59 kg aa5 (R); Height 5 ft. 9 in. (175.26 cm) (R); Pain 0/10; 19:00 BP 124 / 83; Pulse 80; Resp 16; Pulse Ox 97% on R/A; bp 19:30 BP 138 / 92; Pulse 76; Resp 10; Pulse Ox 98% ; bp 20:04 BP 136 / 87; Pulse 85; Resp 14; Pulse Ox 97% on R/A; cc3 21:00 BP 134 / 87; Pulse 90; Resp 16; Pulse Ox 96% on R/A; Pain 0/10; cc3 17:13 Body Mass Index 34.70 (106.59 kg, 175.26 cm) aa5 ED Course: 17:09 Patient arrived in ED. mr 17:09 Lawrence Medel MD is Private Physician. mr 17:12 Martín Piedra MD is Attending Physician. kdr 17:12 Arm band placed on Patient placed in an exam room, on a stretcher. aa5 17:28 Triage completed. aa5 17:30 Missed attempt(s): 22 gauge in right antecubital area. Bleeding controlled, band aid sg applied, catheter tip intact. 17:31 EKG done, by ED staff, reviewed by Martín Piedra MD. jb1 17:50 Jv Jay, RN is Primary Nurse. sg 17:55 X-ray completed. Portable x-ray completed in exam room. Patient tolerated procedure jb2 well. 17:56 CXR XRAY In Process Unspecified. EDMS 17:56 Inserted saline lock: 20 gauge in left antecubital area, using aseptic technique. Blood sg collected. IV inserted by Georges Acosta RN. 18:46 CT completed. Patient moved to CT via wheelchair. Patient moved back from CT. cw1 18:47 CT Neck Angio In Process Unspecified. EDMS 19:15 Patient has correct armband on for positive identification. Placed in gown. Bed in low cc3 position. Call light in reach. Side rails up X 1. 19:17 Primary Nurse role handed off by Jv Jay, ALICIA bp 19:17 Sedrick Kumari, ALICIA is Primary Nurse. bp 20:26 Lawrence Medel MD is Referral Physician. tw4 21:00 No provider procedures requiring assistance completed. IV discontinued, intact, cc3 bleeding controlled, No redness/swelling at site. Pressure dressing applied. Administered Medications: 18:38 Drug: SOLU-Medrol 125 mg Route: IVP; Site: left antecubital; sg 19:18 Follow up: Response: No adverse reaction bp 19:19 Drug: Albuterol 2.5 mg Route: Inhalation; bp 19:19 Drug: AtroVENT Aerosol 0.5 mg Route: Inhalation; bp Outcome: 20:27 Discharge ordered by . tw4 21:05 Discharged to home ambulatory. cc3 21:05 Condition: stable 21:05 Discharge instructions given to patient, Instructed on discharge instructions, follow up and referral plans. medication usage, Demonstrated understanding of instructions, follow-up care, medications, Prescriptions given X 3. 21:20 Patient left the ED. cc3 Signatures: Dispatcher [employer] EDMS MoraRajesh jb1 Jv Jay, RN RN Martín Dean MD MD kdr Rivera, Maria MarylouclaudiaNico jb2 Carlota Villalta RN RN Johanna Dave cw1 Sedrick Kumari ALICIA RN bp Luis F Mendez MD MD tw4 Mendy Lu cc3
--- NOTE | 2018-03-25 20:28 | EDPHYS ---
Physician Documentation [facility] Name: Randall Chaves Age: 72 yrs Sex: Male : 1945 Arrival Date: 03/25/2018 Time: 17:09 Bed 7 Private MD: Lawrence Medel E ED Physician Martín Piedra HPI: 03/25 18:37 This 72 yrs old Male presents to ER via Ambulatory with complaints of kdr Breathing Difficulty. 18:37 The patient has shortness of breath at rest, with light activity. Onset: The kdr symptoms/episode began/occurred This has been an intermittent problem for the last three weeks and his third visit to the ED for same or similar issues. He has been on abx (Zithromax/Augmentin), steroids and cough medications and continues to have upper respiratory congestion. Feels like his throat closes and gets tight and states that his voice is changing. "squeaks". Duration: The symptoms are intermittent, When he stops steroids it gets worse. The patient's shortness of breath is aggravated by light activity, is alleviated by prescription meds. Associated signs and symptoms: Pertinent positives: productive cough, Pertinent negatives: diaphoresis, dizziness, fever. Severity of symptoms: At their worst the symptoms were mild in the emergency department the symptoms are unchanged. The patient has experienced similar episodes in the past, several times. The patient has been recently seen by a physician: The patient has been recently seen at the [facility] Emergency Department, last week, a couple of weeks ago. Historical: - Allergies: 17:14 Bees; aa5 - PMHx: 17:14 Hyperlipidemia; Hypertension; aa5 - PSHx: 17:14 Prostate; aa5 - Immunization history:: Adult Immunizations unknown. - Ebola Screening: : No symptoms or risks identified at this time. - Social history:: Smoking status: unknown. ROS: 18:37 Constitutional: Negative for fever, chills, and weight loss, Eyes: Negative for injury, kdr pain, redness, and discharge, Cardiovascular: Negative for chest pain, palpitations, and edema, Abdomen/GI: Negative for abdominal pain, nausea, vomiting, diarrhea, and constipation, Back: Negative for injury and pain, : Negative for injury, bleeding, discharge, and swelling, MS/Extremity: Negative for injury and deformity, Skin: Negative for injury, rash, and discoloration, Neuro: Negative for headache, weakness, numbness, tingling, and seizure activity. Psych: Negative for depression, anxiety, suicide ideation, homicidal ideation, and hallucinations, Allergy/Immunology: Negative for hives, rash, and allergies, Endocrine: Negative for neck swelling, polydipsia, polyuria, polyphagia, and marked weight changes, Hematologic/Lymphatic: Negative for swollen nodes, abnormal bleeding, and unusual bruising. 18:37 ENT: Positive for sore throat, Tight throat. 18:37 Respiratory: Positive for cough, dyspnea on exertion, Upper airway tightness and congestion. Exam: 18:37 Constitutional: This is a well developed, well nourished patient who is awake, alert, kdr and in no acute distress. Head/Face: Normocephalic, atraumatic. Eyes: Pupils equal round and reactive to light, extra-ocular motions intact. Lids and lashes normal. Conjunctiva and sclera are non-icteric and not injected. Cornea within normal limits. Periorbital areas with no swelling, redness, or edema. Neck: Trachea midline, no thyromegaly or masses palpated, and no cervical lymphadenopathy. Supple, full range of motion without nuchal rigidity, or vertebral point tenderness. No Meningismus. Chest/axilla: Normal chest wall appearance and motion. Nontender with no deformity. No lesions are appreciated. Cardiovascular: Regular rate and rhythm with a normal S1 and S2. No gallops, murmurs, or rubs. Normal PMI, no JVD. No pulse deficits. Respiratory: Lungs have equal breath sounds bilaterally, minor coarse BS. No rales, rhonchi few wheezes noted. No increased work of breathing, no retractions or nasal flaring. Abdomen/GI: Soft, non-tender, with normal bowel sounds. No distension or tympany. No guarding or rebound. No evidence of tenderness throughout. Back: No spinal tenderness. No costovertebral tenderness. Full range of motion. Skin: Warm, dry with normal turgor. Normal color with no rashes, no lesions, and no evidence of cellulitis. MS/ Extremity: Pulses equal, no cyanosis. Neurovascular intact. Full, normal range of motion. Neuro: Awake and alert, GCS 15, oriented to person, place, time, and situation. Cranial nerves II-XII grossly intact. Motor strength 5/5 in all extremities. Sensory grossly intact. Cerebellar exam normal. Normal gait. Psych: Awake, alert, with orientation to person, place and time. Behavior, mood, and affect are within normal limits. Vital Signs: 17:13 BP 128 / 81; Pulse 78; Resp 28 S; Temp 98.0(O); Pulse Ox 98% on R/A; Weight 106.59 kg aa5 (R); Height 5 ft. 9 in. (175.26 cm) (R); Pain 0/10; 19:00 BP 124 / 83; Pulse 80; Resp 16; Pulse Ox 97% on R/A; bp 19:30 BP 138 / 92; Pulse 76; Resp 10; Pulse Ox 98% ; bp 20:04 BP 136 / 87; Pulse 85; Resp 14; Pulse Ox 97% on R/A; cc3 21:00 BP 134 / 87; Pulse 90; Resp 16; Pulse Ox 96% on R/A; Pain 0/10; cc3 17:13 Body Mass Index 34.70 (106.59 kg, 175.26 cm) aa5 MDM: 18:37 Data reviewed: vital signs, nurses notes, lab test result(s), radiologic studies. kdr Counseling: I had a detailed discussion with the patient and/or guardian regarding: the historical points, exam findings, and any diagnostic results supporting the discharge/admit diagnosis, lab results, radiology results. 20:27 Patient medically screened. [facility] 03/25 17:43 Order name: CBC with Diff; Complete Time: 18:34 [facility] 03/25 20:24 Interpretation: PLT 224; MPV 8.2. [facility] 03/25 17:43 Order name: Chem 7; Complete Time: 20:24 kdr 03/25 20:24 Interpretation: Normal except: GLUC 107; CL 109; BUN 19. [facility] 03/25 17:42 Order name: CXR XRAY; Complete Time: 20:24 [facility] 03/25 17:42 Order name: CT Neck Angio; Complete Time: 20:24 kdr Administered Medications: 18:38 Drug: SOLU-Medrol 125 mg Route: IVP; Site: left antecubital; sg 19:18 Follow up: Response: No adverse reaction bp 19:19 Drug: Albuterol 2.5 mg Route: Inhalation; bp 19:19 Drug: AtroVENT Aerosol 0.5 mg Route: Inhalation; bp Disposition: 03/25/18 20:27 Discharged to Home. Impression: Acute bronchospasm. - Condition is Stable. - Discharge Instructions: Bronchospasm, Adult, How to Use an Inhaler, How to Use a Nebulizer. - Prescriptions for Albuterol Sulfate 2.5 mg /3 mL (0.083 %) Inhalation Solution for Nebulization - inhale 1 unit by NEBULIZATION route every 8 hours As needed; 1 box. Medrol (Virgil) 4 mg Oral Tablets, Dose Pack - take 1 tablet by ORAL route as directed - follow package instructions; 1 packet. - Medication Reconciliation Form, Thank You Letter, Antibiotic Education, Prescription Opioid Use form. - Follow up: Lawrence Medel MD; When: Upon discharge from the Emergency Department; Reason: Further diagnostic work-up, Recheck today's complaints, Continuance of care. - Problem is new. - Symptoms have improved. Signatures: Dispatcher [employer] EDMS Jv Jay RN RN sg Martín Piedra MD MD [facility] Carlota Villalta RN RN aa5 Sedrick Kumari RN RN Luis F Mendez MD MD tw4 Mendy Lu cc3 Corrections: (The following items were deleted from the chart) 21:20 20:27 03/25/2018 20:27 Discharged to Home. Impression: Acute bronchospasm. Condition is cc3 Stable. Forms are Medication Reconciliation Form, Thank You Letter, Antibiotic Education, Prescription Opioid Use. Follow up: Lawrence Medel; When: Upon discharge from the Emergency Department; Reason: Further diagnostic work-up, Recheck today's complaints, Continuance of care. Problem is new. Symptoms have improved. tw4
--- NOTE | 2018-03-27 07:10 | EKG ---
Test Date: 2018-03-25 Test Time: 17:25:34 Manager Contracting: JASON MEASUREMENT RESULTS: Intervals: Rate: 75 PA: 136 QRSD: 70 QT: 408 QTc: 455 [place]: P: 45 PA: 136 QRS: -33 T: 0 INTERPRETIVE STATEMENTS: Normal sinus rhythm Left axis deviation Nonspecific ST abnormality Abnormal ECG Compared to ECG 03/13/2018 05:21:27 Left-axis deviation now present ST (T wave) deviation now present Sinus bradycardia no longer present Left ventricular hypertrophy no longer present T-wave abnormality no longer present Electronically Signed On 03-27-18 07:09:36 CDT by Sander Torres
== END 2018-03-25 21:20 | disposition home or self-care (01) ==
LOC: ER 17:06
DX: J98.01 Acute bronchospasm (principal); I10 Essential (primary) hypertension; Z91.030 Bee allergy status
CPT/HCPCS: 36415; 70498; 71045; 80048; 85025; 93005; 96374; 99285; J2930; Q9967

== ENCOUNTER 2018-12-24 19:20 | Emergency (ER) | payer OTHER, BC ==
--- NOTE | 2018-12-24 23:15 | ER ---
Nurse's Notes [facility] Name: Randall Chaves Age: 73 yrs Sex: Male : 1945 Arrival Date: 12/24/2018 Time: 19:27 Bed 26 Private MD: Lawrence Medel E Diagnosis: Foreign body sensation in throat Presentation: 12/24 19:20 Presenting complaint: EMS states: "Patient was eating pasta shell and peach yogurt at cc3 1830H this evening when suddenly he felt like something was lodged on his throat. Patient doesn't complain of any pain though". Transition of care: patient was not received from another setting of care. Onset of symptoms. Risk Assessment: Do you want to hurt yourself or someone else? Patient reports no desire to harm self or others. Initial Sepsis Screen: Does the patient meet any 2 criteria? No. Patient's initial sepsis screen is negative. Does the patient have a suspected source of infection? No. Patient's initial sepsis screen is negative. Care prior to arrival: None. 19:20 Method Of Arrival: EMS: [facility] cc3 19:20 Acuity: CANDIDA 3 cc3 Triage Assessment: 19:20 General: Appears in no apparent distress. comfortable, Behavior is calm, cooperative, cc3 appropriate for age. Pain: Denies pain. EENT: Reports feels like something was lodged on his throat after eating dinner earlier. Neuro: Level of Consciousness is awake, alert, obeys commands, Oriented to person, place, time, situation, Appropriate for age. Cardiovascular: Denies chest pain, Patient's skin is warm and dry. Respiratory: Airway is patent Respiratory effort is even, unlabored, Respiratory pattern is regular, symmetrical. GI: Abdomen is round non-distended. : No signs and/or symptoms were reported regarding the genitourinary system. Derm: No signs and/or symptoms reported regarding the dermatologic system. Musculoskeletal: Circulation, motion, and sensation intact. Range of motion: intact in all extremities. Historical: - Allergies: 19:20 Bees; cc3 - Home Meds: 19:20 atorvastatin 10 mg oral tab [Active]; losartan 50 mg oral tab [Active]; felodipine 10 cc3 mg oral Tb24 1 tab once daily [Active]; - PMHx: 19:20 Hyperlipidemia; Hypertension; Bronchitis; cc3 - PSHx: 19:20 TURP; cc3 - Immunization history:: Adult Immunizations up to date. - Social history:: Smoking status: Patient uses tobacco products, chewing tobacco. - Ebola Screening: : No symptoms or risks identified at this time. Screenin:20 Abuse screen: Denies threats or abuse. Denies injuries from another. Nutritional cc3 screening: No deficits noted. Tuberculosis screening: No symptoms or risk factors identified. Fall Risk Ambulatory Aid- None/Bed Rest/Nurse Assist (0 pts). Gait- Normal/Bed Rest/Wheelchair (0 pts) Mental Status- Oriented to own ability (0 pts). Assessment: 20:15 General: Appears in no apparent distress. comfortable, Behavior is calm, cooperative, ca1 appropriate for age. Pain: Denies pain. Neuro: Level of Consciousness is awake, alert, obeys commands, Oriented to person, place, time, situation. Cardiovascular: Heart tones S1 S2 present Capillary refill < 3 seconds Patient's skin is warm and dry. Respiratory: Airway is patent Trachea midline Respiratory effort is even, unlabored, Respiratory pattern is regular, symmetrical, Breath sounds are clear bilaterally. GI: Abdomen is round non-distended, Bowel sounds present X 4 quads. Abd is soft and non tender X 4 quads. : No deficits noted. No signs and/or symptoms were reported regarding the genitourinary system. EENT: Throat is clear is pink. Derm: Skin is intact, is healthy with good turgor, Skin is pink, warm \\T\\ dry. Musculoskeletal: Circulation, motion, and sensation intact. Capillary refill < 3 seconds, Range of motion: intact in all extremities. 21:30 Reassessment: Patient appears in no apparent distress at this time. Patient is alert, rr5 oriented x 3, equal unlabored respirations, skin warm/dry/pink. 22:35 Reassessment: Patient appears in no apparent distress at this time. Patient is alert, rr5 oriented x 3, equal unlabored respirations, skin warm/dry/pink. no complaints made awaiting for CT result. 23:25 Reassessment: Patient appears in no apparent distress at this time. Patient is alert, rr5 oriented x 3, equal unlabored respirations, skin warm/dry/pink. discharge instruction given and explained without complaints made. Patient states feeling better. Patient states symptoms have improved. Vital Signs: 19:20 BP 131 / 87; Pulse 92; Resp 18 S; Temp 98.0(O); Pulse Ox 98% on R/A; Weight 106.59 kg cc3 (R); Height 5 ft. 6 in. (167.64 cm) (R); Pain 0/10; 20:15 BP 132 / 82; Pulse 87; Resp 17 S; Pulse Ox 99% on R/A; ca1 21:30 BP 126 / 84; Pulse 81; Resp 17; Pulse Ox 98% on R/A; rr5 22:30 BP 131 / 75; Pulse 80; Resp 17; Pulse Ox 98% on R/A; rr5 23:25 BP 125 / 80; Pulse 86; Resp 17; Temp 97.4; Pulse Ox 98% ; rr5 19:20 Body Mass Index 37.93 (106.59 kg, 167.64 cm) cc3 ED Course: 19:20 Patient has correct armband on for positive identification. Bed in low position. Call cc3 light in reach. Side rails up X 1. Pulse ox on. NIBP on. 19:20 Arm band placed on right wrist. Patient notified of wait time. cc3 19:27 Patient arrived in ED. ds1 19:28 Jose Garcia MD is Attending Physician. pkl 19:34 Triage completed. cc3 20:20 Bettina Guerrero, ALICIA is Primary Nurse. ca1 20:30 Inserted saline lock: 20 gauge in left antecubital area, using aseptic technique. Blood ca1 collected. 21:56 Lawrence Medel MD is Private Physician. ds1 23:14 Parth Ramos MD is Referral Physician. pkl 23:25 No provider procedures requiring assistance completed. IV discontinued, intact, rr5 bleeding controlled, No redness/swelling at site. Pressure dressing applied. Administered Medications: No medications were administered Outcome: 23:15 Discharge ordered by . pkl 23:25 Discharged to home ambulatory, with family. rr5 23:25 Condition: stable 23:25 Discharge instructions given to patient, family, Instructed on discharge instructions, follow up and referral plans. Demonstrated understanding of instructions, follow-up care. 23:28 Patient left the ED. bb Signatures: Jose Garcia MD MD pkAurora Stephenson ds1 Lyubov Samaniego, RN RN bb Mendy Lu cc3 Carson Shaw, RN RN rr5 Bettina Guerrero, RN RN ca1
--- NOTE | 2018-12-24 23:16 | EDPHYS ---
Physician Documentation [facility] Name: Randall Chaves Age: 73 yrs Sex: Male : 1945 Arrival Date: 12/24/2018 Time: 19:27 Bed 26 Private MD: Lawrence Medel E ED Physician Jose Garcia HPI: 12/24 20:21 This 73 yrs old Male presents to ER via EMS with complaints of food particle pkl in throat. 20:21 The patient or guardian reports the patient has a suspected foreign body, of the pkl throat. The reported likely foreign body is Patient was eating pasta shell and peach yogurt. Onset: The symptoms/episode began/occurred 2 hour(s) ago. Historical: - Allergies: 19:20 Bees; cc3 - Home Meds: 19:20 atorvastatin 10 mg oral tab [Active]; losartan 50 mg oral tab [Active]; felodipine 10 cc3 mg oral Tb24 1 tab once daily [Active]; - PMHx: 19:20 Hyperlipidemia; Hypertension; Bronchitis; cc3 - PSHx: 19:20 TURP; cc3 - Immunization history:: Adult Immunizations up to date. - Social history:: Smoking status: Patient uses tobacco products, chewing tobacco. - Ebola Screening: : No symptoms or risks identified at this time. ROS: 20:21 Eyes: Negative for injury, pain, redness, and discharge. pkl 20:21 ENT: Positive for foreign body sensation, of the throat. 20:21 Neck: Negative for stiffness. 20:21 Cardiovascular: Negative for chest pain. 20:21 Respiratory: Negative for cough, shortness of breath. 20:21 Abdomen/GI: Negative for abdominal pain, nausea, vomiting, and diarrhea. 20:21 Back: Negative for acute changes. 20:21 : Negative for urinary symptoms. 20:21 MS/extremity: Negative for acute changes. 20:21 Skin: Negative for rash. 20:21 Neuro: Negative for altered mental status. Exam: 20:21 Head/Face: Normocephalic, atraumatic. Eyes: Pupils equal round and reactive to light, pkl extra-ocular motions intact. Lids and lashes normal. Conjunctiva and sclera are non-icteric and not injected. Cornea within normal limits. Periorbital areas with no swelling, redness, or edema. ENT: Nares patent. No nasal discharge, no septal abnormalities noted. Tympanic membranes are normal and external auditory canals are clear. Oropharynx with no redness, swelling, or masses, exudates, or evidence of obstruction, uvula midline. Mucous membranes moist. Neck: Trachea midline, no thyromegaly or masses palpated, and no cervical lymphadenopathy. Supple, full range of motion without nuchal rigidity, or vertebral point tenderness. No Meningismus. Chest/axilla: Normal chest wall appearance and motion. Nontender with no deformity. No lesions are appreciated. Cardiovascular: Regular rate and rhythm with a normal S1 and S2. No gallops, murmurs, or rubs. Normal PMI, no JVD. No pulse deficits. Respiratory: Lungs have equal breath sounds bilaterally, clear to auscultation and percussion. No rales, rhonchi or wheezes noted. No increased work of breathing, no retractions or nasal flaring. Abdomen/GI: Soft, non-tender, with normal bowel sounds. No distension or tympany. No guarding or rebound. No evidence of tenderness throughout. Back: No spinal tenderness. No costovertebral tenderness. Full range of motion. Skin: Warm, dry with normal turgor. Normal color with no rashes, no lesions, and no evidence of cellulitis. MS/ Extremity: Pulses equal, no cyanosis. Neurovascular intact. Full, normal range of motion. Neuro: Awake and alert, GCS 15, oriented to person, place, time, and situation. Cranial nerves II-XII grossly intact. Motor strength 5/5 in all extremities. Sensory grossly intact. Cerebellar exam normal. Normal gait. Vital Signs: 19:20 BP 131 / 87; Pulse 92; Resp 18 S; Temp 98.0(O); Pulse Ox 98% on R/A; Weight 106.59 kg cc3 (R); Height 5 ft. 6 in. (167.64 cm) (R); Pain 0/10; 20:15 BP 132 / 82; Pulse 87; Resp 17 S; Pulse Ox 99% on R/A; ca1 21:30 BP 126 / 84; Pulse 81; Resp 17; Pulse Ox 98% on R/A; rr5 22:30 BP 131 / 75; Pulse 80; Resp 17; Pulse Ox 98% on R/A; rr5 23:25 BP 125 / 80; Pulse 86; Resp 17; Temp 97.4; Pulse Ox 98% ; rr5 19:20 Body Mass Index 37.93 (106.59 kg, 167.64 cm) cc3 MDM: 19:28 Patient medically screened. pkl 23:11 Data reviewed: vital signs, nurses notes, radiologic studies, CT scan. ED course: pkl Discussed CT Scan result with patient and . Advised to follow up with Dr. Ramos or Dr. Bains/Patrica in the morning for further evaluations. Patient understood instructions. 12/24 20:18 Order name: Creatinine, Serum pkl 12/24 21:00 Order name: Creatinine (Radiology Only); Complete Time: 21:02 EDMS Administered Medications: No medications were administered Disposition: 12/24/18 23:15 Discharged to Home. Impression: Foreign body sensation in throat. - Condition is Stable. - Medication Reconciliation Form, Thank You Letter, Antibiotic Education, Prescription Opioid Use form. - Follow up: Parth Ramos MD; When: Tomorrow; Reason: Re-evaluation by your physician. Signatures: Dispatcher [employer] EDMS Jose Garcia MD MD pkLyubov Brewer, RN RN Mendy Harley cc3 Corrections: (The following items were deleted from the chart) 23:28 23:15 12/24/2018 23:15 Discharged to Home. Impression: Foreign body sensation in bb throat. Condition is Stable. Forms are Medication Reconciliation Form, Thank You Letter, Antibiotic Education, Prescription Opioid Use. Follow up: Parth Ramos; When: Tomorrow; Reason: Re-evaluation by your physician. pkl
--- NOTE | 2018-12-26 10:22 | RAD REPORT ---
EXAM DESCRIPTION: CT - Soft Tissue Neck W/Contr - 12/24/2018 10:31 pm CLINICAL HISTORY: 73 years Male, F.B. COMPARISON: Neck CTA dated 03/25/2018. TECHNIQUE: 3 mm axial images of the neck were obtained with IV contrast. Coronal and sagittal reform atted images were obtained. This exam was performed according to our departmental dose-optimization program, which includes autom ated exposure control, adjustment of the mA and/or kV according to patient size and/or use of iterati ve reconstruction technique. INTRAVENOUS CONTRAST: Not documented. Please refer to medical record. FINDINGS: No radiopaque foreign bodies are identified. The epiglottis is unremarkable. The aryepiglottic folds are unremarkable. The vallecula is unremarkable. The piriform sinuses are unremarkable. The uvula is unremarkable. There is no evidence of tonsillar or adenoid hypertrophy. There is no evidence of supraglottic or subglottic airway trapping. The visualized portions of the cervical and thoracic esophagus are unremarkable Thyroid gland is unremarkable. There is no cervical adenopathy. The parotid and submandibular glands are unremarkable bilaterally. There is atherosclerotic disease about the carotid bulbs and proximal internal carotid arteries bilat erally. There are moderately severe parenchymal scarring in the pulmonary apices bilaterally, stable. There is severe multilevel degenerative disc disease and spondylosis throughout the cervical spine wi th prominent anterior osteophytes and syndesmophytes demonstrated. IMPRESSION: 1. No radiopaque foreign body identified. Electronically signed by: Temo Smith MD 12/24/2018 10:02 PM CDT Due to temporary technical issues with the PACS/Fluency reporting system, reports are being signed by the in house radiologist as a courtesy to ensure prompt reporting. The interpreting radiologist is f khalifly responsible for the content of the report.
== END 2018-12-24 23:28 | disposition home or self-care (01) ==
LOC: ER 19:20
DX: R09.89 Other specified symptoms and signs involving the circulatory and respiratory systems (principal); I10 Essential (primary) hypertension; E78.5 Hyperlipidemia, unspecified; Z72.0 Tobacco use; Z91.030 Bee allergy status
CPT/HCPCS: 36415; 70491; 99284; Q9967

== ENCOUNTER 2019-07-31 11:42 | Emergency (ER) | payer OTHER, BC ==
--- NOTE | 2019-07-31 12:20 | RAD REPORT ---
EXAM DESCRIPTION: Marcia Single View07/31/2019 12:08 pm CLINICAL HISTORY: sob COMPARISON: June 2019 FINDINGS: Mild improvement in the diffuse bilateral pulmonary opacities. Mediastinal lymphadenopathy is unchanged. The heart is normal size IMPRESSION: Mild improvement in the diffuse bilateral pulmonary opacities . This may represent a pne umonitis superimposed over chronic changes
[2019-07-31 12:31] LABS: Absolute Lymphocytes (CBC) 1.2 K/uL (0.7-4.9); Basophils % 0.5 % (0-1.3); Lymphocytes % 17.5 % (15.3-44.8); MPV 7.5 fL (7.6-11.3); RBC Red Blood Cell Count 4.89 M/uL (4.33-5.43)
[2019-07-31 12:32] LABS: Protime INR 1.07
[2019-07-31 12:46] LABS: ALT/SGPT 25 U/L (12-78); AST/SGOT 17 U/L (15-37); Albumin 3.8 g/dL (3.4-5.0); Alkaline Phosphatase 93 U/L (45-117); BUN Blood Urea Nitrogen 22 mg/dL (7-18); Bicarbonate 21 mmol/L (21-32); Bilirubin Direct 0.1 mg/dL (0-0.2); Bilirubin Total 0.5 mg/dL (0.2-1.0); Glucose Level 106 mg/dL (74-106); Magnesium 2.2 mg/dL (1.8-2.4); NT PRO-BNP 112 pg/mL (<125); Potassium 3.7 mmol/L (3.5-5.1); Protein, Total 7.8 g/dL (6.4-8.2); Sodium Level 141 mmol/L (136-145); Troponin (Emerg Dept Use Only) < 0.02 ng/mL (0.0-0.045)
--- NOTE | 2019-07-31 14:07 | RAD REPORT ---
EXAM DESCRIPTION: CT - Chest For Pe Angio - 07/31/2019 2:00 pm CLINICAL HISTORY: Chest pain. SOB COMPARISON: Thorax Wo Con dated 05/29/2019; Chest Single View dated 07/31/2019; Chest For Pe Angio date d 03/13/2018 TECHNIQUE: CT angiogram of the pulmonary arteries was performed with MIP. All CT scans are performed using dose optimization technique as appropriate and may include automated exposure control or mA/KV adjustment according to patient size. FINDINGS: No evidence of pulmonary thromboembolism. No acute aortic finding demonstrated. Extensive bilateral interstitial lung opacities are present, moderately progressive since the 019 study. Linear atelectasis is present extending superiorly from the left hilum with bronchiectasis present. No significant pericardial or pleural fluid. No lytic or blastic bone disease. IMPRESSION: No evidence of pulmonary thromboembolism. Extensive bilateral interstitial lung opacities, progressive since the comparative study, likely brenda cating underlying interstitial lung disease.
--- NOTE | 2019-07-31 14:38 | EKG ---
Test Date: 2019-07-31 Test Time: 12:29:55 Business Records Manager: ELY MEASUREMENT RESULTS: Intervals: Rate: 68 MA: 164 QRSD: 68 QT: 402 QTc: 427 Mutual: P: -4 MA: 164 QRS: -30 T: -16 INTERPRETIVE STATEMENTS: Normal sinus rhythm Left axis deviation Abnormal ECG Compared to ECG 03/25/2018 17:25:34 ST (T wave) deviation no longer present Electronically Signed On 07-31-19 14:38:14 RN [facility] by Anastacio Garcia
--- NOTE | 2019-07-31 15:20 | EDPHYS ---
Physician Documentation [facility] Name: Randall Chaves Age: 73 yrs Sex: Male : 1945 Arrival Date: 07/31/2019 Time: 11:47 Bed 2 Private MD: ED Physician Martín Piedra HPI: 07/31 15:29 This 73 yrs old Male presents to ER via EMS with complaints of Shortness Of kdr Breath. 15:29 The patient has shortness of breath with light activity. Onset: The symptoms/episode kdr began/occurred suddenly, gradually, has become recurrent. Duration: The symptoms are intermittent, with no pattern. The patient's shortness of breath is aggravated by exertion, light activity, is alleviated by. Associated signs and symptoms: Pertinent positives: This patient does not have any pertinent positive signs or symptoms associated with shortness of breath. Pertinent negatives: non-productive cough, productive cough, diaphoresis, dizziness, fever, hemoptysis, loss of consciousness, nausea, numbness in extremities, visual changes, vomiting. Severity of symptoms: At their worst the symptoms were mild just prior to arrival, in the emergency department the symptoms are unchanged. The patient has experienced similar episodes in the past, chronically, today's symptoms are similar, The patient has been having respiratory problems of this type for the past year. Today's episode is not substantially different than prior exacerbations. The patient has had recurrent SOB episodes as noted above. The patient has not recently seen a physician. Historical: - Allergies: 11:54 Bees; ph - Home Meds: 11:54 atorvastatin 10 mg Oral tab [Active]; amlodipine oral [Active]; Atrovent Inhl [Active]; ph Singulair Oral [Active]; Symbicort inhalation inhalation [Active]; - PMHx: 11:54 Bronchitis; Hyperlipidemia; Hypertension; ph - PSHx: 11:54 TURP; ph - Immunization history:: Adult Immunizations unknown. - Social history:: Smoking status: Patient/guardian denies using tobacco, never smoked. - Ebola Screening: : No symptoms or risks identified at this time. ROS: 15:29 Constitutional: Negative for fever, chills, and weight loss, Eyes: Negative for injury, kdr pain, redness, and discharge, ENT: Negative for injury, pain, and discharge, Neck: Negative for injury, pain, and swelling, Cardiovascular: Negative for chest pain, palpitations, and edema, Abdomen/GI: Negative for abdominal pain, nausea, vomiting, diarrhea, and constipation, Back: Negative for injury and pain, : Negative for injury, bleeding, discharge, and swelling, MS/Extremity: Negative for injury and deformity, Skin: Negative for injury, rash, and discoloration, Neuro: Negative for headache, weakness, numbness, tingling, and seizure activity. Psych: Negative for depression, anxiety, suicide ideation, homicidal ideation, and hallucinations, Allergy/Immunology: Negative for hives, rash, and allergies, Endocrine: Negative for neck swelling, polydipsia, polyuria, polyphagia, and marked weight changes, Hematologic/Lymphatic: Negative for swollen nodes, abnormal bleeding, and unusual bruising. 15:29 Respiratory: Positive for dyspnea on exertion, shortness of breath, Negative for cough, hemoptysis, orthopnea, pleurisy, sputum production. Exam: 15:29 Constitutional: This is a well developed, well nourished patient who is awake, alert, kdr and in no acute distress. Head/Face: Normocephalic, atraumatic. Eyes: Pupils equal round and reactive to light, extra-ocular motions intact. Lids and lashes normal. Conjunctiva and sclera are non-icteric and not injected. Cornea within normal limits. Periorbital areas with no swelling, redness, or edema. Neck: Trachea midline, no thyromegaly or masses palpated, and no cervical lymphadenopathy. Supple, full range of motion without nuchal rigidity, or vertebral point tenderness. No Meningismus. Chest/axilla: Normal chest wall appearance and motion. Nontender with no deformity. No lesions are appreciated. Cardiovascular: Regular rate and rhythm with a normal S1 and S2. No gallops, murmurs, or rubs. Normal PMI, no JVD. No pulse deficits. Respiratory: Lungs have equal breath sounds bilaterally, clear to auscultation and percussion. No rales, rhonchi or wheezes noted. No increased work of breathing, no retractions or nasal flaring. Abdomen/GI: Soft, non-tender, with normal bowel sounds. No distension or tympany. No guarding or rebound. No evidence of tenderness throughout. Back: No spinal tenderness. No costovertebral tenderness. Full range of motion. Skin: Warm, dry with normal turgor. Normal color with no rashes, no lesions, and no evidence of cellulitis. MS/ Extremity: Pulses equal, no cyanosis. Neurovascular intact. Full, normal range of motion. Neuro: Awake and alert, GCS 15, oriented to person, place, time, and situation. Cranial nerves II-XII grossly intact. Motor strength 5/5 in all extremities. Sensory grossly intact. Cerebellar exam normal. Normal gait. Psych: Awake, alert, with orientation to person, place and time. Behavior, mood, and affect are within normal limits. Vital Signs: 11:51 BP 127 / 78; Pulse 76; Resp 20; Temp 97.7; Pulse Ox 100% on R/A; Weight 104.33 kg; ph Height 5 ft. 9 in. (175.26 cm); Pain 0/10; 13:19 BP 130 / 87; Pulse 73; Resp 16; Pulse Ox 99% on R/A; ph 14:26 BP 126 / 80; Pulse 76; Resp 18; Pulse Ox 98% on R/A; ph 15:43 BP 128 / 76; Pulse 75; Resp 18; Temp 98.0; Pulse Ox 99% on R/A; ph 11:51 Body Mass Index 33.96 (104.33 kg, 175.26 cm) ph MDM: 15:19 Patient medically screened. kdr 15:29 Data reviewed: vital signs, nurses notes, lab test result(s), radiologic studies. kdr Counseling: I had a detailed discussion with the patient and/or guardian regarding: the historical points, exam findings, and any diagnostic results supporting the discharge/admit diagnosis, lab results, radiology results, the need for outpatient follow up. 07/31 11:53 Order name: Basic Metabolic Panel; Complete Time: 13:03 kdr 07/31 11:53 Order name: CBC with Diff; Complete Time: 13:03 kdr 07/31 11:53 Order name: LFT's; Complete Time: 13:03 kdr 07/31 11:53 Order name: Magnesium; Complete Time: 13:03 kdr 07/31 11:53 Order name: NT PRO-BNP; Complete Time: 13:03 kdr 07/31 11:53 Order name: PT-INR; Complete Time: 13:03 kdr 07/31 11:53 Order name: Troponin (emerg Dept Use Only); Complete Time: 13:03 [facility] 07/31 11:53 Order name: XRAY Chest (1 view); Complete Time: 13:03 [facility] 07/31 11:53 Order name: EKG; Complete Time: 11:54 [facility] 07/31 11:53 Order name: Cardiac monitoring; Complete Time: 11:58 [facility] 07/31 11:53 Order name: EKG - Nurse/Tech; Complete Time: 12:27 [facility] 07/31 11:53 Order name: IV Saline Lock; Complete Time: 12:19 [facility] 07/31 13:03 Order name: DD; Complete Time: 14:29 [facility] 07/31 13:45 Order name: CT Chest For PE Angio; Complete Time: 14:29 [facility] 07/31 11:53 Order name: Labs collected and sent; Complete Time: 12:19 [facility] 07/31 11:53 Order name: O2 Per Protocol; Complete Time: 11:57 [facility] 07/31 11:53 Order name: O2 Sat Monitoring; Complete Time: 11:57 [facility] Administered Medications: No medications were administered Disposition: 07/31/19 15:19 Discharged to Home. Impression: Dyspnea, Shortness of breath. - Condition is Stable. - Discharge Instructions: Shortness of Breath, [id number], Cough, Adult, [id number]. - Prescriptions for Albuterol Sulfate 90 mcg/actuation - inhale 1-2 puff by INHALATION route every 4-6 hours; 1 Inhaler. - Medication Reconciliation Form, Thank You Letter form. - Follow up: Private Physician; When: 2 - 3 days; Reason: If symptoms return, Further diagnostic work-up, Recheck today's complaints, Continuance of care, Re-evaluation by your physician. - Problem is an acute exacerbation. - Symptoms have improved. Signatures: Dispatcher [employer] EDMS Martín Piedra MD MD kdr Graciela Marrero RN RN ph Corrections: (The following items were deleted from the chart) 15:45 15:19 07/31/2019 15:19 Discharged to Home. Impression: Dyspnea; Shortness of breath. ph Condition is Stable. Forms are Medication Reconciliation Form, Thank You Letter, Antibiotic Education, Prescription Opioid Use. Follow up: Private Physician; When: 2 - 3 days; Reason: If symptoms return, Further diagnostic work-up, Recheck today's complaints, Continuance of care, Re-evaluation by your physician. Problem is an acute exacerbation. Symptoms have improved. kdr
--- NOTE | 2019-07-31 15:20 | ER ---
Nurse's Notes [facility] Name: Randall Chaves Age: 73 yrs Sex: Male : 1945 Arrival Date: 07/31/2019 Time: 11:47 Bed 2 Private MD: Diagnosis: Dyspnea;Shortness of breath Presentation: 07/31 11:48 Presenting complaint: EMS states: Pt reports SOB x approx 3 months, productive cough x ph 3 weeks, SOB worse this morning, also reports increased SOB and fatigue w/ exertion, Spo2 98% RA upon EMS arrival, pt able to speak in full sentences w/ no difficulty noted, denies fever or pain. Transition of care: patient was not received from another setting of care. Onset of symptoms was July 31, 2019. Risk Assessment: Do you want to hurt yourself or someone else? Patient reports no desire to harm self or others. Initial Sepsis Screen: Does the patient meet any 2 criteria? No. Patient's initial sepsis screen is negative. Does the patient have a suspected source of infection? No. Patient's initial sepsis screen is negative. Care prior to arrival: None. 11:48 Method Of Arrival: EMS: [facility] ph 11:48 Acuity: CANDIDA 3 ph Historical: - Allergies: 11:54 Bees; ph - Home Meds: 11:54 atorvastatin 10 mg Oral tab [Active]; amlodipine oral [Active]; Atrovent Inhl [Active]; ph Singulair Oral [Active]; Symbicort inhalation inhalation [Active]; - PMHx: 11:54 Bronchitis; Hyperlipidemia; Hypertension; ph - PSHx: 11:54 TURP; ph - Immunization history:: Adult Immunizations unknown. - Social history:: Smoking status: Patient/guardian denies using tobacco, never smoked. - Ebola Screening: : No symptoms or risks identified at this time. Screenin:56 Abuse screen: Denies threats or abuse. Denies injuries from another. Nutritional ph screening: No deficits noted. Tuberculosis screening: No symptoms or risk factors identified. Fall Risk None identified. Assessment: 11:55 General: Appears in no apparent distress. comfortable, well groomed, Behavior is calm, ph cooperative, appropriate for age, Denies fever, chills. Pain: Denies pain. Neuro: Level of Consciousness is awake, alert, obeys commands, Oriented to person, place, time, situation. Respiratory: Reports shortness of breath on exertion cough that is productive, Airway is patent Respiratory effort is even, unlabored, Respiratory pattern is regular, symmetrical, Breath sounds are clear bilaterally. GI: No signs and/or symptoms were reported involving the gastrointestinal system. EENT: Reports nasal congestion. Derm: Skin is intact, is healthy with good turgor, Skin is pink, warm \T\ dry. Musculoskeletal: Circulation, motion, and sensation intact. Range of motion: intact in all extremities. 12:04 Reassessment: Dr Piedra at bedside. ph 13:18 Reassessment: Patient appears in no apparent distress at this time. Patient and/or ph family updated on plan of care and expected duration. Pain level reassessed. Patient is alert, oriented x 3, equal unlabored respirations, skin warm/dry/pink. Pt resting comfortably, awaiting lab results, VSS, SO at bedside. 14:26 Reassessment: Patient appears in no apparent distress at this time. Patient and/or ph family updated on plan of care and expected duration. Pain level reassessed. Patient is alert, oriented x 3, equal unlabored respirations, skin warm/dry/pink. 15:43 Reassessment: Patient appears in no apparent distress at this time. Patient and/or ph family updated on plan of care and expected duration. Pain level reassessed. Patient is alert, oriented x 3, equal unlabored respirations, skin warm/dry/pink. Pt d/c home w/ SO. Vital Signs: 11:51 BP 127 / 78; Pulse 76; Resp 20; Temp 97.7; Pulse Ox 100% on R/A; Weight 104.33 kg; ph Height 5 ft. 9 in. (175.26 cm); Pain 0/10; 13:19 BP 130 / 87; Pulse 73; Resp 16; Pulse Ox 99% on R/A; ph 14:26 BP 126 / 80; Pulse 76; Resp 18; Pulse Ox 98% on R/A; ph 15:43 BP 128 / 76; Pulse 75; Resp 18; Temp 98.0; Pulse Ox 99% on R/A; ph 11:51 Body Mass Index 33.96 (104.33 kg, 175.26 cm) ph ED Course: 11:47 Patient arrived in ED. ph 11:49 Martín Piedra MD is Attending Physician. kdr 11:51 Triage completed. ph 11:54 Arm band placed on Patient placed in an exam room, on a stretcher, on log chain worker, ph on pulse oximetry. 11:56 Patient has correct armband on for positive identification. Bed in low position. Call ph light in reach. Side rails up X 1. dividing machine operator helper on. Pulse ox on. NIBP on. Door closed. Noise minimized. Warm blanket given. 11:57 Graciela Marrero, RN is Primary Nurse. ph 12:05 XRAY Chest (1 view) In Process Unspecified. EDMS 12:19 Initial lab(s) drawn, by tn, sent to lab. Inserted saline lock: 22 gauge in right lt1 antecubital area, using aseptic technique. 12:34 EKG done, by machine tool technician instructor. reviewed by Martín Piedra MD. at1 13:59 CT Chest For PE Angio In Process Unspecified. EDMS 15:44 No provider procedures requiring assistance completed. IV discontinued, intact, ph bleeding controlled, No redness/swelling at site. Pressure dressing applied. Administered Medications: No medications were administered Outcome: 15:19 Discharge ordered by . kdr 15:44 Discharged to home ambulatory, with significant other. ph 15:44 Condition: good 15:44 Discharge instructions given to patient, significant other, Instructed on discharge instructions, follow up and referral plans. medication usage, Demonstrated understanding of instructions, follow-up care, medications, Prescriptions given X 1. 15:45 Patient left the ED. ph Signatures: Dispatcher [employer] EDCO Martín Piedra MD MD kdr Nieves Guardado, composition worker EKG Tat1 Graciela Marrero, RN RN [facility], [place] Paula lt1
[2019-07-31 16:04] VITALS: BP 128/76; TEMP 98; O2SAT 99
== END 2019-07-31 15:45 | disposition home or self-care (01) ==
LOC: ER 11:42
DX: R06.00 Dyspnea, unspecified (principal); I10 Essential (primary) hypertension; E78.5 Hyperlipidemia, unspecified; Z91.030 Bee allergy status
CPT/HCPCS: 93005; 85025; 80048; 36415; 83735; 85610; 85379; 80076; 84484; 83880; 71275; 71045; 99285; Q9967

== ENCOUNTER 2021-12-07 06:09 | Day surgery (SDC) | payer OTHER, BC ==
--- NOTE | 2021-12-03 08:45 | RAD REPORT ---
EXAM DESCRIPTION: RAD - Chest Pa And Lat (2 Views) - 12/03/2021 8:35 am CLINICAL HISTORY: Pre op pending surgery, hypertension COMPARISON: Two view chest October 2020 TECHNIQUE: Frontal and lateral views of the chest were obtained. FINDINGS: The lungs are normal volume. No new mass or infiltrative process identifiable. Patient has extensive underlying interstitial lung disease. The pattern is less prominent than seen October 2020. No anay mass or lymphadenopathy seen. Left hilar elevation is present. Heart size is normal and central vasculature is within normal limits. No pleural effusion or pneu mothorax seen. No acute bony finding noted. No aortic abnormality. IMPRESSION: Chronic interstitial lung pattern appearing less prominent than seen October 2020. No new mass, infiltrate or acute chest finding seen.
[2021-12-03 08:52] LABS: Absolute Lymphocytes (CBC) 0.6 K/uL (0.7-4.9); Lymphocytes % 17.2 % (15.3-44.8); MPV 7.3 fL (7.6-11.3); RBC Red Blood Cell Count 4.34 M/uL (4.33-5.43)
[2021-12-03 09:18] LABS: Protime INR 0.96
--- NOTE | 2021-12-04 14:56 | EKG ---
Test Date: 2021-12-03 Test Time: 07:14:05 Investment Banking Manager: FRITZ MEASUREMENT RESULTS: Intervals: Rate: 62 MD: 180 QRSD: 66 QT: 432 QTc: 438 [place]: P: 3 MD: 180 QRS: -23 T: 12 INTERPRETIVE STATEMENTS: Sinus rhythm with premature atrial complexes Otherwise normal ECG Compared to ECG 07/31/2019 12:29:55 Atrial premature complex(es) now present Left-axis deviation no longer present Electronically Signed On 12-04-21 14:54:01 CDT by Dante Nicolas
[2021-12-07] MEDS ORDERED: Ringers Lactate 1,000 ML IV ONE (06:21)
[2021-12-07] MEDS ORDERED: CEFAZOLIN/SWI 2gm 0 GM/0 ML SYR ONE (06:21)
[2021-12-07] MEDS ORDERED: AMPICILLIN SODIUM 2 GM in NA CHLORIDE 0.9% 100 ML IVPB SCH (07:00)
[2021-12-07] MEDS ORDERED: Gentamicin Inj 240 MG in NA CHLORIDE 0.9% 100 ML IV SCH (07:00)
[2021-12-07] MEDS ORDERED: FENTANYL CITR 100 MCG/2 ML ONE (07:18)
[2021-12-07] MEDS ORDERED: LIDOCAINE 1% MPF 5 ML VIAL ONE (07:19)
[2021-12-07] MEDS ORDERED: MIDAZOLAM HCL 2 MG/2 ML INJ ONE (07:19)
[2021-12-07] MEDS ORDERED: propofoL 200 MG/20 ML VIAL IV ONE (07:19)
[2021-12-07] MEDS ORDERED: ROCURONIUM 50 MG/5 ML VIAL IV ONE (07:19)
[2021-12-07] MEDS ORDERED: ONDANSETRON 4 MG/2 ML VIAL ONE (07:21)
--- NOTE | 2021-12-07 09:35 | RAD REPORT ---
EXAM DESCRIPTION: RAD - Urethrocystogrphy Retrograde - 12/07/2021 9:28 am FINDINGS: Liver is 15 portable KUB images obtained during a fluoroscopic assisted placement of a rig ht ureteral stent. No suspicious or unexpected finding. Fluoro time was 0.14 minutes.
[2021-12-07] MEDS ORDERED: OPIUM/BELLADONNA SUPPOS (30-16.2 MG) PR ONE ×2 (10:05→10:29)
[2021-12-07] MEDS: HYDROMORPHONE HCL 1 MG/ML INJ ONE ×4 (10:12→10:35)
[2021-12-07] MEDS ORDERED: HYDRALAZINE HCL 20 MG/ML VIAL ONE (10:16)
[2021-12-07] MEDS ORDERED: CODEINE 30MG/APAP 300MG TAB PO PRN (11:00)
[2021-12-07] MEDS ORDERED: PHENAZOPYRIDINE 100MG TAB PO ONE ×2 (11:00→11:10)
[2021-12-07 14:02] VITALS: TEMP 96.5; O2SAT 97
[2021-12-07 14:03] VITALS: BP 117/69
--- NOTE | 2021-12-08 10:33 | OP ---
Surgeon: SWATHI RODAS Preoperative Diagnoses: 1.Bladder/prostatic urethral calculi. 2.Right ureterolithiasis. 3.BPH with lower urinary tract obstruction and symptoms. 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 Postoperative Diagnoses: 1.Bladder/prostatic urethral calculi. 2.Right ureterolithiasis. 3.BPH with lower urinary tract obstruction and symptoms. 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 Procedures: 1.Cystoscopy with right retrograde pyelography. 2.Right ureteral stent placement. 3.Bipolar transurethral resection of the prostate. 4.Removal of bladder and prostatic urethral calculi. 5.Right ureteroscopy with laser lithotripsy and stent replacement/exchange. Indication For Procedure: Mr. Chaves presented to the Urology Clinic with gross hematuria and underwe nt evaluation revealing the presence of a 7 mm obstructive ureteral calculus and some prostatic ureth ral changes with calculi noted, likely the source of the gross hematuria. He was thus counseled on t he need for operative management given the presence of the stones and recommended for additional radha gement of the prostatic urethral obstruction given his bothersome urinary symptoms. Procedure In Detail: The patient was consented in the preoperative holding area before being transfe rred to operative suite where general anesthesia was induced. He was given ampicillin 2 g and gentam icin 2-3 mg/kg IV antimicrobial prophylaxis and Pneumoboots were provided for DVT prophylaxis. He wa s carefully placed in the lithotomy position, taking care to ensure his weight of the leg was on his heels with no lateral peroneal nerve compression or posterior calf compression. He was padded and se cured to the table appropriately. His genitalia were prepped using Hibiclens and draped in standard fashion. The case was begun using a 22-Mexican rigid cystoscope to traverse the urethra and into the bladder. The bladder was surveyed in its entirety, and the previously noted prostatic urethral calcu li were again noted. There was significant edematous reaction particularly in the left bladder neck region where the calculi were irritating the bladder mucosa. The trigone was orthotopic in location and the right ureteral orifice was visualized. I then attempted to place a 5-Mexican ureteral access catheter, but the orifice was significantly stenotic. As a result, I utilized the tip of the Sensor wire within the 5-Mexican ureteral access catheter and with some difficulty was able to navigate the t ip of the 5-Mexican ureteral access catheter into the distal ureter just into the orifice. There was clearly some evident obstruction, likely from the 7 mm calculus seen on CT, which was prohibiting eas e of cannulation of the ureteral orifice and the distal ureter. So I removed the Sensor wire and per formed a retrograde pyelogram. Right retrograde pyelography: Using a 70:30 mixture of Omnipaque and saline, contrast was injected v ia the lumen of the 5-Mexican ureteral access catheter and did navigate up a relatively nondilated ure ter and collecting system before entering the upper pole and mid pole, which was delineated. I then passed the Sensor wire via the 5-Mexican ureteral access catheter and was able to navigate it beyond t he point of obstruction in the distal ureter and into the upper pole of the kidney where a coil was o bserved fluoroscopically. Because of the stenosis of the ureteral orifice, and recognizing I still h ad to manage his bladder and prostatic urethral calculi as well as his prostatic urethral obstruction , I elected to then place a 6-Mexican x 26 cm double-J right ureteral stent, which did successfully pa ss up the ureter and coil within the upper pole with an additional coil formed cystoscopically within the bladder. I then turned my attention to his prostate and the calculi. I removed the cystoscope and then used urethral sounds to dilate his meatus from 24-Mexican to 30-Mexican. I then was able to u se a visual stone carriage operator to pass the resectoscope via the urethra and into his bladder. I then made a ca reful search to identify the left ureteral orifice, and when I was confident of its location within t he trigone, I then began resection of the intravesical projecting component of the left lateral and m edian lobe into his bladder. The prostatic/bladder calculi, which had become embedded there were john ed from their intramucosal bladder neck prostatic urethral location and delivered into the bladder. I then resected the remainder of the adenomatous tissue and edematous tissue until the median lobe wa s level with the bladder neck. I then continued the resection into the lateral lobe, resecting any i ntravesical projecting component, taking care to avoid and spare the left ureteral orifice. I contin ued the resection of the median bar down to the verumontanum creating a smooth trough and continued t hat resection involving the left lateral lobe mid zone of the prostate and the apex in order to creat e a nice trough and channel. The resection was continued into the anterior zone of the prostate and any intravesical component of the anterior lobe was similarly resected. I then turned my attention t o the right lateral lobe and resected the component of the lateral lobar hypertrophy that was crossin g the midline without making any excessive effort to resect to the capsule given the patient's prior history of radiation therapy, and evident bladder changes suggestive of decreased compliance, which c ould result in furtherance of his incontinence. While a very widely patent bladder neck was created and the apex was trimmed until the lateral lobes were no longer kissing, again no real effort to rese ct to the capsule was made in this case. I removed the prostatic chips and made a careful search for bleeding fulgurating any and all bleeding vessels. Then, with the bladder completely decompressed, I again assessed the lateral lobar ingression into the prostatic urethra. Continuing to resect to cr eate a nice smooth channel with his bladder decompressed, I then further trim pleated the channel tro ug desired such that from the verumontanum into the bladder, there was a widely open and patent caal edilberto. Again Ellik evacuator was used to remove all prostatic chips, and a careful search for any gina ining bleeding vessels was performed. Once completely fulgurated and hemostatic, I then decompressed his bladder and turned my attention back to the right ureter. I then removed the resectoscope and passed the 22-Mexican cystoscope back into the bladder to grasp th e stent and deliver it via the meatus. The proximal end of the stent remained within the proximal ur eter, and so I passed a Sensor wire via the stent and coiled it in the upper pole of the kidney. Ove r the Sensor wire, I then passed a dual-lumen catheter into the distal ureter to further dilate it, b ut also to confirm the appropriate intraluminal location of the wires. Once confirmed, I then passed a Bentson guidewire into the upper pole of the kidney and removed the dual-lumen catheter. I then u tilized the Bentson guidewire to navigate the ureteroscope via the urethra and into the distal into t he mid proximal ureter. The ureter was relatively tortuous at this time; so I surveyed the ureter ba ck down to the ureteral orifice where 1-2 cm and the 7 mm calculus was noted, but with 2 individual c alculi, 1 about 4 mm in diameter and the other about 3 mm in diameter. I thus employed a 200 nanomet er laser fiber at power settings of 0.8 joules and 10 hertz alternating with 0.4 joules and 20 hertz to fragment the stones to just that were about the size of the laser fiber. Once completed, I then a gain surveyed into the mid and proximal ureter for any additional calculi. When none were noted, I r emoved the ureteroscope surveying the ureter on the way out and there was no evidence of injury. I t hus back loaded the cystoscope over the indwelling safety wire and passed the 6-Mexican x 26 cm double -J right ureteral stent back into the collecting system with a coil observed fluoroscopically and 1 c ystoscopically observed in his bladder. I then decompressed his bladder of fluid and urine and becau se there was some mild oozing from the right lateral lobe associated with likely the trauma during e ureteroscopy, I then replaced the resectoscope using the visual stone carriage operator and fulgurated the prostat ic urethra to ensure complete hemostasis. I also made sure to remove any and all residual prostatic urethral chips. Once this was completed, all those chips were sent for pathologic analysis and I rem abbie the resectoscope leaving his bladder full. I then passed a 22-Mexican 3-way Bhagat catheter into his bladder with ease and placed 30 cc of sterile water in the balloon. The patient was then taken o ut of the lithotomy position, the catheter was placed to moderate traction and connected to CBI. The CBI was using normal saline. The patient was then awakened from general anesthesia, transferred to a stretcher, and then transferred to the recovery room in good condition. Complications: None. Discharge Disposition: He may follow up in the Urology Clinic on Monday for catheter removal and voi ding trial and will be discharged with 5 days of antimicrobial. Subsequent removal of the right uret eral stent can take place any time within the next 2 weeks. This will require cystoscopy and stent r emoval in the office. WR/MODL Voice ID: [id number] Report ID: [id number]
== END 2021-12-07 12:30 | disposition home or self-care (01) ==
LOC: OR 06:09
PROVIDERS: ATTEND Urology
PROC: 0TJ98ZZ Inspection of Ureter, Via Natural or Artificial Opening Endoscopic (ICD-10-PCS; 2021-12-07)
PROC: 0T9680Z Drainage of Right Ureter with Drainage Device, Via Natural or Artificial Opening Endoscopic (ICD-10-PCS; 2021-12-07)
PROC: 0VT08ZZ Resection of Prostate, Via Natural or Artificial Opening Endoscopic (ICD-10-PCS; principal; 2021-12-07 07:30)
PROC: 0TCB8ZZ Extirpation of Matter from Bladder, Via Natural or Artificial Opening Endoscopic (ICD-10-PCS; 2021-12-07 07:30)
DX: R31.0 Gross hematuria (principal); N40.1 Benign prostatic hyperplasia with lower urinary tract symptoms; N42.0 Calculus of prostate; N20.2 Calculus of kidney with calculus of ureter; J44.9 Chronic obstructive pulmonary disease, unspecified; Z20.822 Contact with and (suspected) exposure to COVID-19; I71.2 Thoracic aortic aneurysm, without rupture; Z85.46 Personal history of malignant neoplasm of prostate
CPT/HCPCS: 52601; 52318; 52351; 52332; 93005; 87088; 85025; 87086; 80048; 36415; 85610; 88300; 88305; 82360; 71046; 74450; 51610; U0003; J0360; J2704; J1580; J2250; J3010; J1170 ×2; J7120; J2405; J0290; J0690

== ENCOUNTER 2022-11-17 06:17 | Day surgery (SDC) | payer OTHER, BC ==
[2022-11-02 15:28] LABS: Absolute Lymphocytes (CBC) 0.9 K/uL (0.7-4.9); Hematocrit 41.2 % (39.6-49.0); Lymphocytes % 12.1 % (15.3-44.8); MCV 89.8 fL (80-100); MPV 7.1 fL (7.6-11.3); RBC Red Blood Cell Count 4.59 M/uL (4.33-5.43)
[2022-11-02 15:29] LABS: Protime INR 0.97
--- NOTE | 2022-11-02 15:37 | RAD REPORT ---
EXAM DESCRIPTION: RAD - Chest Pa And Lat (2 Views) - 11/02/2022 3:21 pm CLINICAL HISTORY: Pre op pending TURP, hypertension, heart surgery, stent COMPARISON: Chest Pa And Lat (2 Views) dated 12/03/2021; Chest Pa And Lat (2 Views) dated 11/03/2020; Chest Pa And Lat (2 Views) dated 08/28/2019; Chest Single View dated 07/31/2019 FINDINGS: Lines: None. Lungs: No evidence of edema or pneumonia. Pleural: No significant pleural effusions or pneumothorax. Cardiac: The heart size is within normal limits. Mediastinum: Within normal limits. Bones: No acute fractures. Sternotomy Other: None IMPRESSION: No acute cardiopulmonary disease.
--- NOTE | 2022-11-03 09:07 | EKG ---
Test Date: 2022-11-02 Test Time: 14:58:13 University President: FRITZ MEASUREMENT RESULTS: Intervals: Rate: 59 [place]: 160 QRSD: 70 QT: 408 QTc: 403 [place]: P: 46 VT: 160 QRS: -8 T: 60 INTERPRETIVE STATEMENTS: Sinus bradycardia Nonspecific T wave abnormality Abnormal ECG Compared to ECG 12/03/2021 07:14:05 T-wave abnormality now present Sinus rhythm no longer present Atrial premature complex(es) no longer present Electronically Signed On 11-03-22 09:04:20 CDT by Sander Torres
[2022-11-17] MEDS ORDERED: AMPICILLIN SODIUM 2 GM/VIAL VIAL ONE (06:54)
[2022-11-17] MEDS ORDERED: Ringers Lactate 1,000 ML IV ONE (06:54)
[2022-11-17] MEDS ORDERED: Gentamicin Inj 240 MG in NA CHLORIDE 0.9% 100 ML IV SCH (07:00)
[2022-11-17] MEDS ORDERED: FENTANYL CITR 100 MCG/2 ML ONE (07:34)
[2022-11-17] MEDS ORDERED: propofoL 200 MG/20 ML VIAL IV ONE (07:35)
[2022-11-17] MEDS ORDERED: ROCURONIUM 50 MG/5 ML VIAL IV ONE ×2 (07:35)
[2022-11-17] MEDS ORDERED: MIDAZOLAM HCL 2 MG/2 ML INJ ONE (07:35)
[2022-11-17] MEDS ORDERED: ONDANSETRON 4 MG/2 ML VIAL ONE (07:35)
[2022-11-17] MEDS ORDERED: LIDOCAINE 1% MPF 5 ML VIAL ONE (07:35)
[2022-11-17] MEDS ORDERED: dexAMETHasone 10 MG/ML VIAL ONE (07:59)
[2022-11-17] MEDS ORDERED: NEOSTIGMINE 1 MG/ML -10 ML VIAL ONE (08:51)
[2022-11-17] MEDS ORDERED: GLYCOPYRROLATE 0.2 MG/ML SYR ONE ×2 (08:51→09:50)
[2022-11-17] MEDS: HYDROMORPHONE HCL 1 MG/ML INJ ONE ×2 (09:18→09:25)
[2022-11-17] MEDS ORDERED: KETOROLAC 30 MG/ML INJ ONE (09:21)
[2022-11-17] MEDS ORDERED: CODEINE 30MG/APAP 300MG TAB PO PRN (09:28)
[2022-11-17] MEDS ORDERED: DIAZEPAM 5 MG TABLET PO ONE (09:28)
[2022-11-17] MEDS ORDERED: PHENAZOPYRIDINE 100MG TAB PO ONE ×2 (09:28→10:41)
[2022-11-17] MEDS ORDERED: DIAZEPAM 5 MG TABLET ONE (09:37)
--- NOTE | 2022-11-17 10:16 | OP ---
Surgeon: SWATHI RODAS Preoperative Diagnoses: 1.Calcified prostatic urethra and bladder neck. 2.High risk prostate cancer. 3.Status post radiation therapy and androgen deprivation therapy. Postoperative Diagnoses: 1.Calcified prostatic urethra and bladder neck. 2.High risk prostate cancer. 3.Status post radiation therapy and androgen deprivation therapy. Principal Procedures: Bipolar transurethral resection of the prostate/prostatic urethral calcificati on and resection of bladder neck calcified tissue. Indication For Procedure: Mr. Chaves presented for evaluation of worsening of his urinary symptoms th at occurred following an initial treatment of a bladder stone and prostatic urethral obstruction that was performed prior to radiation treatment for high risk prostate cancer identified. He subsequentl y underwent cystoscopic evaluation revealing significant calcification of his prostatic urethra and t he bladder neck causing obstruction and gross hematuria. As a result, he was counseled about the rec ommendation for having all that calcified tissue removed, and he was specifically counseled about the risk of incontinence that was enhanced due to the fact that the patient has undergone prior radiatio n treatment. Procedure In Detail: The patient was consented in the preoperative holding area before being transfe rred to the operative suite where general anesthesia was induced. He was given ampicillin 2 g and ge ntamicin 240 mg IV antimicrobial prophylaxis and pneumo boots were provided for DVT prophylaxis. He was placed in the lithotomy position, padded and secured to the table appropriately, and his genitali a was prepped with Hibiclens before being draped in standard fashion. The case was begun using ureth ral sounds to dilate the meatus and fossa navicularis to 28-Botswanan. Then, using a 26-Botswanan resectos cope sheath and a visual obturator, the urethra was traversed and the bladder entered with ease. All the previously noted calcified prostatic urethral and bladder neck findings were again noted. As a result, I decompressed this bladder of fluid and urine and then refilled it with sterile saline. I t hen utilized the bipolar loop to begin to attempt to manually and using cautery where necessary, jamel marco the calcified tissue from the bladder neck. Resecting additional tissue where necessary in order to ensure removal of all of that calcified tissue. I continued the resection into the prostatic ure thra where there was significant additional calcified tissue and similarly worked to remove all of th e calcification that was dystrophic in appearance. Additional resection was performed where necessar y to create a smooth channel free of the calcified tissue. Care was taken to avoid resecting any tis andreea beyond the level of the verumontanum because of the already increased risk of incontinence associ ated with his prior radiation treatment. In the end, after all calcified tissue had been successfull y removed and a nice patent prostatic fossa had been created, I ensured to Ellik evacuate all chips a nd calcified material from within his bladder and then with his bladder decompressed, I carefully ful gurated any and all bleeding vessels. Once there was no bleeding with the bladder completely decompr essed and free of any prostate chips or calcified tissue, I then left his bladder full before removin g the scope and replacing a 20-Botswanan 3-way Bhagat catheter to slow drip CBI with completely clear eff lux of fluid and urine. There was no injury to the bladder or the ureteral orifices throughout the c ase, and the patient was taken out of the lithotomy position before being awakened from general anest hesia, transferred to a stretcher, and then transferred to the recovery room in good condition. Complications: None. Discharge Disposition: We will try to discharge him with a catheter overnight and plan a voiding tri al potentially tomorrow since the patient was adamant about not dealing with the pain associated with the catheter for any length of time. Ultimately, he should follow up to discuss the results of the pathology, and any additional treatment required can be considered at that time. He should be offere d follow up with me as soon as 2-6 weeks from surgery in case he has any issues with pain or perhaps incontinence following the procedure, which certainly is a possibility given his prior radiation treatment. Otherwise, follow up should be estab lished in about 3 months. JIM/BERNARDO Voice ID: [id number] Report ID: [id number]
[2022-11-17] MEDS ORDERED: CODEINE 30MG/APAP 300MG TAB ONE (10:41)
[2022-11-17 12:08] VITALS: BP 135/74; TEMP 97.2; O2SAT 99
== END 2022-11-17 11:53 | disposition home or self-care (01) ==
LOC: OR 06:17
PROVIDERS: ATTEND Urology
PROC: 0TBC8ZX Excision of Bladder Neck, Via Natural or Artificial Opening Endoscopic, Diagnostic (ICD-10-PCS; 2022-11-17)
PROC: 0VT08ZZ Resection of Prostate, Via Natural or Artificial Opening Endoscopic (ICD-10-PCS; principal; 2022-11-17 07:30)
DX: N32.89 Other specified disorders of bladder (principal); N21.0 Calculus in bladder; N40.1 Benign prostatic hyperplasia with lower urinary tract symptoms; C61 Malignant neoplasm of prostate; R31.0 Gross hematuria
CPT/HCPCS: 52601; 52500; 93005; 87088; 85025; 87086; 80048; 36415; 85610; 88305; 71046; J2704; J2710; J2001; J1580; J2250; J3010; J1100; J1170; J2405; J0290; J7120

== ENCOUNTER 2023-02-20 05:58 | Day surgery (SDC) | payer OTHER, BC ==
[2023-02-16 11:51] LABS: Hematocrit 41.1 % (39.6-49.0); Lymphocytes % 18.9 % (15.3-44.8); MCV 92.9 fL (80-100); Platelets 175 thou/uL (152-406); RBC Red Blood Cell Count 4.43 M/uL (4.33-5.43)
[2023-02-16 12:05] LABS: Potassium 4.3 mEq/L (3.5-5.1)
[2023-02-20] MEDS ORDERED: VANCOMYCIN 1 GM/VIAL ONE (06:24)
[2023-02-20] MEDS ORDERED: DEPO-MEDROL 40 MG/ML IM ONE (06:24)
[2023-02-20] MEDS ORDERED: REMIFENTANIL HCL 1 MG VIAL IV ONE (06:26)
[2023-02-20] MEDS ORDERED: Ringers Lactate 1,000 ML IV ONE (06:26)
[2023-02-20] MEDS ORDERED: SUCCINYLCHOLINE 20 MG/ML (10 ML) IV ONE ×2 (06:28→06:54)
[2023-02-20] MEDS ORDERED: KETOROLAC 30 MG/ML INJ ONE (06:33)
[2023-02-20] MEDS ORDERED: dexAMETHasone 10 MG/ML VIAL ONE (06:33)
[2023-02-20] MEDS ORDERED: ONDANSETRON 4 MG/2 ML VIAL ONE (06:34)
[2023-02-20] MEDS ORDERED: LIDOCAINE 2% MPF 5 ML VIAL ONE (06:34)
[2023-02-20] MEDS ORDERED: ROCURONIUM 50 MG/5 ML VIAL IV ONE (06:34)
[2023-02-20] MEDS ORDERED: NS 0.9% VIAL 20 ML ONE (06:42)
[2023-02-20] MEDS ORDERED: FENTANYL CITR 100 MCG/2 ML ONE (06:50)
[2023-02-20] MEDS ORDERED: SUGAMMADEX SODIUM 200 MG/2 ML VIAL IV ONE (06:54)
[2023-02-20] MEDS: CEFAZOLIN SODIUM 2 GM/VIAL ONE ×2 (07:14→07:20)
[2023-02-20] MEDS: THROMBIN 5000 UNITS/VIAL TOP ONE ×3 (07:23→08:20)
[2023-02-20] MEDS ORDERED: NS 0.9% VIAL 10 ML ONE (08:35)
[2023-02-20] MEDS ORDERED: Mastisol Adhesive Liq ONE (09:16)
[2023-02-20 09:58] VITALS: O2SAT 98
--- NOTE | 2023-02-20 10:00 | RAD REPORT ---
EXAM DESCRIPTION: RAD - Fluoroscopy <1 Hour - 02/20/2023 9:45 am CLINICAL HISTORY: Lumbar decompression FINDINGS: Three fluoroscopic spot images obtained. Fluoroscopy time 0 minutes. The surgery performed by Dr. Alcazar Localization the of the L5 vertebra performed
[2023-02-20 10:13] VITALS: BP 177/83; TEMP 96.6
== END 2023-02-20 10:55 | disposition home or self-care (01) ==
LOC: OR 05:58
PROVIDERS: ATTEND Orthopaedic Surgery
PROC: 01NB0ZZ Release Lumbar Nerve, Open Approach (ICD-10-PCS; principal; 2023-02-20 07:00)
PROC: 0ST20ZZ Resection of Lumbar Vertebral Disc, Open Approach (ICD-10-PCS; 2023-02-20 07:00)
DX: M48.062 Spinal stenosis, lumbar region with neurogenic claudication (principal); M51.26 Other intervertebral disc displacement, lumbar region
CPT/HCPCS: 85025; 80048; 36415; 63047; 63048 ×2; J2704; A4216 ×2; J2001; J3010; J1100; J2405; J3490; J7120; 76000; J1030

== ENCOUNTER 2023-08-01 08:39 | Day surgery (SDC) | payer BC, OTHER ==
[2023-08-01 08:51] LABS: Absolute Lymphocytes (CBC) 0.8 K/uL (0.7-4.9); Hematocrit 41.8 % (39.6-49.0); MPV 7.5 fL (7.6-11.3); Platelets 159 thou/uL (152-406); RBC Red Blood Cell Count 4.59 M/uL (4.33-5.43)
[2023-08-01 09:03] LABS: Potassium 4.1 mEq/L (3.5-5.1)
[2023-08-01] MEDS ORDERED: Ringers Lactate 1,000 ML IV ONE (09:03)
[2023-08-01] MEDS ORDERED: AMPICILLIN SODIUM 2 GM/VIAL VIAL ONE (09:03)
[2023-08-01 09:04] LABS: Protime INR 1.01
[2023-08-01] MEDS ORDERED: ONDANSETRON 4 MG/2 ML VIAL ONE (09:48)
[2023-08-01] MEDS ORDERED: FENTANYL CITR 100 MCG/2 ML ONE (09:48)
[2023-08-01] MEDS ORDERED: propofoL 200 MG/20 ML VIAL IV ONE (09:48)
[2023-08-01] MEDS ORDERED: MIDAZOLAM HCL 2 MG/2 ML INJ ONE (09:49)
[2023-08-01] MEDS ORDERED: GENTAMICIN 100 MG/100 ML BAG 200 ML IV ONE (10:00)
[2023-08-01] MEDS ORDERED: EPHEDRINE SULF 50 MG/ML VIAL ONE (10:08)
--- NOTE | 2023-08-01 11:54 | RAD REPORT ---
EXAM DESCRIPTION: RAD - Urethrocystogrphy Retrograde - 08/01/2023 11:40 am CLINICAL HISTORY: ICD N 20.0 FINDINGS: 23 fluoroscopic spot images obtained. Fluoroscopy time minutes 1.1 minute Right ureter was cannulated and contrast administered. Subsequently an ureteral stent was placed. Exa mination was performed by Dr Roldan
[2023-08-01] MEDS ORDERED: PHENAZOPYRIDINE 100MG TAB PO ONE (12:13)
[2023-08-01] MEDS ORDERED: HYDROCODONE/APAP 5/325 MG TAB PO PRN (12:13)
[2023-08-01 12:27] VITALS: O2SAT 94
[2023-08-01 13:05] VITALS: BP 156/75; TEMP 98.7
--- NOTE | 2023-08-01 17:10 | EKG ---
Test Date: 2023-08-01 Test Time: 09:26:20 Museum Or Zoo Director: DESMOND MEASUREMENT RESULTS: Intervals: Rate: 68 [place]: 168 QRSD: 76 QT: 388 QTc: 412 [place]: P: -2 [place]: 168 QRS: 7 T: 44 INTERPRETIVE STATEMENTS: Normal sinus rhythm Nonspecific T wave abnormality Abnormal ECG Compared to ECG 11/02/2022 14:58:13 Sinus bradycardia no longer present T-wave abnormality still present Electronically Signed On 08-01-23 17:09:59 STAINING MACHINE OPERATOR by Dante Nicolas
--- NOTE | 2023-08-01 20:21 | OP ---
Surgeon: SWATHI RODAS Preoperative Diagnoses: 1.11 mm right ureterolithiasis. 2.Recurrent/persistent urinary tract infection. 3.Right hydronephrosis. Postoperative Diagnoses: 1.11 mm right ureterolithiasis. 2.Recurrent/persistent urinary tract infection. 3.Right hydronephrosis. 4.Partially impacted right ureteral calculus. Principal Procedures: 1.Cystoscopy. 2.Right retrograde pyelography. 3.Right ureteroscopy with pyeloscopy and laser lithotripsy. 4.Right ureteroscopic stone basketing. 5.Right ureteral stent placement. Indication For Procedure: Mr. Chaves is a 77-year-old gentleman who had previously undergone a TURP a nd yet had persistence of an Enterococcus UTI. 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 Subseq uently, a CT scan was performed which revealed the presence of recurrent ureterolithiasis obstructing the mid right ureter and causing significant right-sided hydronephrosis. The patient had not distin ctly appreciated the stone as a source of his pain because he was also having pain associated with so me orthopedic spine surgeries that he had had about a month prior. He presents today for relief of t he obstruction and potential definitive management of the stone as he has already been treated with a course of Augmentin and is on prophylactic Macrobid antimicrobial therapy. Procedure In Detail: The patient was consented in the preoperative holding area before being transfe rred to the operative suite where general anesthesia was induced. He was given ampicillin 2 g and ge ntamicin 2 to 3 mg/kg IV antimicrobial prophylaxis. Pneumo boots were provided for DVT prophylaxis. He was placed in the lithotomy position, padded and secured to the table appropriately. His genital ia were prepped with Hibiclens and he was draped in standard fashion. The case was begun using a 22- Monegasque rigid cystoscope to traverse the urethra and navigate through fibrinous debris within the pros tatic urethra before ultimately entering the bladder with relative ease. There was still some fibrin ous debris within the prostatic urethra and floating within the bladder, but this was removed by deco mpressing the bladder of fluid and urine. I then identified the right ureteral orifice, which I cassy ulated using the tip of the Sensor wire and the 5-Monegasque ureteral access catheter. I then performed a retrograde pyelogram. Right retrograde pyelography: Using a 70:30 mixture of Omnipaque and saline, contrast was injected v ia the lumen of the 5-Monegasque ureteral access catheter and did propagate up the distal into the mid ur eter where there was a filling defect that was significant in size and delayed progress of contrast p roximally up the ureter. With further injection of contrast, some of it did surpass this point of ob struction and into the mid and proximal ureter before entering the renal pelvis and lower and mid dov e calyces. At this point, I utilized a Sensor wire passed via the 5-Monegasque ureteral access catheter, and the wire did coil around the stone obstruction in the mid ureter. With some manipulation and ad vancement of the 5-Monegasque ureteral access catheter over the wire as it coiled around the stone, I was able to eventually navigate the wire into the mid proximal ureter and eventually into the renal pelv is and putative upper pole calyx. To confirm this, I passed the 5-Monegasque ureteral access catheter ov er the wire into the proximal ureter and removed the wire and injected contrast again performing a re trograde pyelography study. This did fill the upper pole and renal pelvis and proximal ureter indica tive of appropriate intraluminal localization of the wire and catheters. As a result, I passed the S ensor wire back into his collecting system after decompressing it or rather allowing it to decompress by passive hydronephrotic drip. With the Sensor wire back in place, I removed the 5-Monegasque ureteral access catheter and passed an 8/10-Monegasque dilator into the distal ureter to the point of obstruction in the mid ureter. Once the ureteral orifice was dilated, I then utilized the semi-rigid ureterosco pe, navigated under direct vision into ureteral orifice and up the distal into the mid ureter, but I was just not able to reach the level of the stone sufficient to perform lithotripsy. So I passed the Bentson guidewire via the semirigid ureteroscope and coiled it beneath the obstructing stone. I the n passed a ureteral access sheath over the Bentson guidewire distal to the point of obstruction where the wire coiled, and then passed the flexible ureteroscope through the ureteral access sheath and to the level of obstruction where the stone was visible beneath a degree of clot. I was able to surpas s the stone and into the renal pelvis and calices which were significantly hydronephrotic. So I deco mpressed the renal pelvis and calyces partially in order to improve visualization only. I then surve yed each of the calyces and no additional stones were seen. I then surveyed down into the proximal a nd mid ureter where I again encountered the stone partially obscured by clot. I thus employed a 272 nm laser fiber to begin to fragment that stone, and once the stone was mostly fragmented and at least in half, I then utilized the 1.9-Monegasque 0 tip Nitinol basket to grasp some of the stone fragments. This did reveal significant residual stone burden too large to be grasped by the basket; so I again u tilized the laser to continue to fragment the stone ultimately until the fragments were small enough to be grasped by the 1.9-Monegasque basket. Power settings for the laser were 0.8 joules and 15 Hz. I t dereck performed multiple rounds of basket extraction of the majority of the stone dust present and impa cted at the point of his mid right ureter. Once all significant stone fragments had been removed, I then removed the ureteroscope and passed the GoodRxson guidewire via the ureteral access sheath before switching to the 8/10 dilator and injecting contrast via the [place] port of the 8/10 dilator perfo rming a retrograde pyelogram to ensure no residual obstruction was seen and no evidence of ureteral e xtravasation. When none was noted, I then removed the 8/10 dilator and backloaded the cystoscope ove r the indwelling safety wire. I ultimately passed a 6-Monegasque x 26 cm double-J ureteral stent over th e safety wire successfully coiling it within the upper pole of his right kidney with an additional co il formed in his bladder. I then decompressed his bladder of fluid and urine, as well as, any free-f loating debris, attempting to remove some of that prostatic fibrinous debris in the process before de compressing his bladder and removing the cystoscope. He was then taken out of the lithotomy position , awakened from general anesthesia, transferred to a stretcher, and then transferred to the recovery room in good condition. Complications: None. Discharge Disposition: He should continue taking the Macrobid twice daily for the next 5 days, and t hen he should continue taking it once a day as prophylaxis until he either runs out of the prescripti on or he follows up for cystoscopy and right ureteral stent extraction, which should be established i n the [facility] to occur between 4 to 6 weeks from now. Subsequently, he will require definitiv e stone forming profile assessment via [facility]. Subsequent followup of his routine issues with pro state cancer, status post radiation therapy, etc., may then be determined after that. JENNIFER Voice ID: [id number] Report ID: [id number]
== END 2023-08-01 13:00 | disposition home or self-care (01) ==
LOC: OR 08:39
PROVIDERS: ATTEND Urology
PROC: 0T768DZ Dilation of Right Ureter with Intraluminal Device, Via Natural or Artificial Opening Endoscopic (ICD-10-PCS; 2023-08-01)
PROC: 0TC68ZZ Extirpation of Matter from Right Ureter, Via Natural or Artificial Opening Endoscopic (ICD-10-PCS; principal; 2023-08-01 10:00)
DX: N13.2 Hydronephrosis with renal and ureteral calculous obstruction (principal); Z87.440 Personal history of urinary (tract) infections; J44.9 Chronic obstructive pulmonary disease, unspecified
CPT/HCPCS: 36415; 51610; 74450; 80048; 82360; 85025; 85610; 88300; 93005; J0290; J1580; J2250; J2405; J2704; J3010; J7120

== ENCOUNTER → 2023-10-09 | Day surgery (SDC) | payer BC ==
[2023-10-05 11:14] LABS: Absolute Eosinophils 0.2 K/uL (0-0.5); Absolute Lymphocytes (CBC) 0.7 K/uL (0.7-4.9); Absolute Monocytes 0.9 K/uL (0.1-1.3); Absolute Neutrophil 5.7 K/uL (1.8-8.0); Basophils % 0.2 % (0-1.3); Hematocrit 43.4 % (39.6-49.0); Hemoglobin 14.9 g/dL (13.6-17.9); Lymphocytes % 8.8 % (15.3-44.8); MCH 31.3 pg (27.0-35.0); MCHC 34.4 g/dL (32.0-36.0); MPV 6.9 fL (7.6-11.3); Monocytes % 11.8 % (3.3-12.3); Neutrophils % 77.2 % (41.7-73.7); Platelets 147 thou/uL (152-406); RBC Red Blood Cell Count 4.76 M/uL (4.33-5.43); Red Cell Distribution Width 13.5 % (12.1-15.2)
[2023-10-05 11:28] LABS: Anion Gap 9.1 mEq/L (5.0-15.0); Potassium 4.1 mEq/L (3.5-5.1)
[~2023-10-09] MED LIST: DEPO-MEDROL 40 MG/ML IM ONE; EPHEDRINE SULF 50 MG/ML VIAL ONE; FENTANYL CITR 100 MCG/2 ML ONE; LIDOCAINE 2% MPF 5 ML VIAL ONE; MIDAZOLAM HCL 2 MG/2 ML INJ ONE; Mastisol Adhesive Liq ONE; NS 0.9% VIAL 10 ML ONE; REMIFENTANIL HCL 1 MG VIAL IV ONE; ROCURONIUM 50 MG/5 ML VIAL IV ONE; SUCCINYLCHOLINE 20 MG/ML (10 ML) IV ONE
[2023-10-09] MEDS: Ringers Lactate 1,000 ML IV ONE (05:37)
[2023-10-09] MEDS: CEFAZOLIN SODIUM 2 GM/VIAL ONE (06:45)
[2023-10-09] MEDS: THROMBIN 5000 UNITS/VIAL TOP ONE (07:42)
[2023-10-09] MEDS: VANCOMYCIN 1 GM/VIAL ONE (09:20)
[2023-10-09] MEDS: NA CHLORIDE 0.9% 1,000 ML ONE (09:30)
[2023-10-09] MEDS: FENTANYL CITR 100 MCG/2 ML ONE (10:40)
--- NOTE | 2023-10-09 10:54 | RAD REPORT ---
EXAM DESCRIPTION: RAD - Fluoroscopy <1 Hour - 10/09/2023 10:06 am CLINICAL HISTORY: CSPINE DECOMPRESSION C3-C6 COMPARISON: Fluoroscopy <1 Hour dated 02/20/2023 FINDINGS/IMPRESSION: Twenty-five intraoperative fluoroscopic images were submitted for the purposes of a cervical decompression. No radiologist was available for the procedure, nor will any image interpretation be provided. Ector lee refer to the procedural report for additional details Fluoro time: 0.5 minutes Cumulative dose: 13.3 mGy
[2023-10-09 10:56] VITALS: O2SAT 97
[2023-10-09 12:41] VITALS: BP 160/67; TEMP 96.2
== END ==
LOC: OR 05:10
PROVIDERS: ATTEND Orthopaedic Surgery
PROC: 01N10ZZ Release Cervical Nerve, Open Approach (ICD-10-PCS; principal; 2023-10-09 06:30)
DX: M47.12 Other spondylosis with myelopathy, cervical region (principal); R26.89 Other abnormalities of gait and mobility; I10 Essential (primary) hypertension; Z85.46 Personal history of malignant neoplasm of prostate
CPT/HCPCS: 36415; 76000; 80048; 85025; A4216; J1030; J2001; J2250; J2704; J3010; J3490; J7030; J7120

== ENCOUNTER 2023-10-23 05:26 | Inpatient (IN) | payer BC ==
[2023-10-23] MEDS: dexAMETHasone 10 MG/ML VIAL ONE ×2 (05:45→05:47)
[2023-10-23] MEDS: VANCOMYCIN 1 GM/VIAL ONE (05:45)
[2023-10-23] MEDS: SUCCINYLCHOLINE 20 MG/ML (10 ML) IV ONE (05:48)
[2023-10-23] MEDS: Ringers Lactate 1,000 ML IV ONE ×2 (05:50→08:00)
[2023-10-23] MEDS ORDERED: FENTANYL CITR 100 MCG/2 ML ONE ×2 (05:53→06:51)
[2023-10-23] MEDS ORDERED: MIDAZOLAM HCL 2 MG/2 ML INJ ONE (05:53)
[2023-10-23] MEDS ORDERED: propofoL 200 MG/20 ML VIAL IV ONE ×4 (05:53→09:43)
[2023-10-23] MEDS ORDERED: LIDOCAINE 2% MPF 5 ML VIAL ONE (05:53)
[2023-10-23] MEDS ORDERED: ROCURONIUM 50 MG/5 ML VIAL IV ONE (05:53)
[2023-10-23] MEDS ORDERED: NS 0.9% VIAL 10 ML ONE ×2 (06:08)
[2023-10-23] MEDS ORDERED: Phenylephrine HCl 10 MG/ML 1 ML VIAL ONE (06:08)
[2023-10-23] MEDS ORDERED: Mastisol Adhesive Liq ONE (06:20)
[2023-10-23] MEDS: CEFAZOLIN SODIUM 2 GM/VIAL ONE (06:55)
[2023-10-23] MEDS ORDERED: EPHEDRINE SULF 50 MG/ML VIAL ONE ×2 (07:06→09:42)
[2023-10-23] MEDS: propofoL 1,000 MG/100 ML VIAL IV ONE (07:09)
[2023-10-23] MEDS ORDERED: KETAMINE HCL IN 0.9 % NACL 50 MG/5 ML SYRINGE IV ONE (07:20)
[2023-10-23] MEDS: THROMBIN 5000 UNITS/VIAL TOP ONE (07:43)
[2023-10-23] MEDS ORDERED: HYDROCODONE/APAP 10/325 TAB PO PRN (11:01)
[2023-10-23] MEDS: HYDROMORPHONE HCL 1 MG/ML INJ ONE (11:25)
--- NOTE | 2023-10-23 11:27 | RAD REPORT ---
EXAM DESCRIPTION: RAD - Fluoroscopy <1 Hour - 10/23/2023 10:58 am CLINICAL HISTORY: C3-C4, C4-C5, C5-C6, C6-C7 ANTERIORCERV DISKECTOMY/FUSION COMPARISON: Fluoroscopy <1 Hour dated 10/09/2023 FINDINGS/IMPRESSION: Thirty intraoperative fluoroscopic images were submitted demonstrating in ACDF from C3-4 through C6-7. Interbody cages are present. No radiologist was available for the procedure, nor will any image interpretation be provided. Ector lee refer to the procedural report for additional details Fluoro time: 0.5 minutes Cumulative dose: 11 mGy
--- OUTSIDE RECORDS SUMMARY | 2023-10-23 11:41 | XMS REPORT | Continuity of Care Document ---
Author Name Unknown Address [address] [facility]. [address] [place] [address] [facility] thconnect Address [address] [facility]. [address] [place] [address] Care Team Providers Care First Breaker Feeder Name Role Phone Lawrence Medel Primary Care Physician [phone] Lawrence Medel Attending Clinician Unavailable ANASTACIO CALLEJAS Attending Clinician Unavailable BRADLEY GONZALEZ Attending Clinician Unavailable Bradley Gonzalez MD Attending Clinician [phone] Doctor Unassigned, Renwick Attending Clinician U jessicaailable 2, [facility] Attending Clinician Unavailable Rosita Story PTA Attending Clinician Unavail able Princess Schultz MD Attending Clinician [phone] PRINCESS SCHULTZ Attending Clinician UnavailPRINCESS Marsh Attending Clinician UnavailAbdifatah Vera PTA Attending Clinician Unavaila Samanta Espitia PTA Attending Clinician Unavail able Elisabeth Davila PTA Attending Clinician Unav aidee Ruiz PTEmilia Attending Clinician Unavailabl e Rehab, Maryann Cardiac Attending Clinician Unavailab gorge Peterson PTKaryn Attending Clinician Unavail able Visit, [facility] Nurse Attending Clinician Unavailable Anastacio Callejas MD Attending Clinician [phone] Dayanna Arroyo Attending Clinician + Only, [facility] Test Attending Clinician Unavailable Jung Jacques Attending Clinician [phone] Pob, [facility] Main Attending Clinician UnavailJUNG Elias Attending Clinician Unavailkorina Masterson MD, Afaq Attending Clinician Sangeetha BIRMINGHAM, Daryl Attending Clinician DARYL VIVAS Attending Clinician Unavailable MENG MEANS Attending Clinician Unavailable ANASTACIO CALLEJAS Admitting Clinician Unavailable CARLOSMATILISE Admitting Clinician Unavailable Britta BIRM[place], Anastacio Admitting Clinician JUNG LEBRON Admitting Clinician Unavailkorina Vivas MD, Daryl Admitting Clinician DARYL VIVAS Admitting Clinician Unavailable Payers Payer Name Policy Type Policy Number Effective Date Expiration Date Source MEDICARE PART A \\T\\ B [id number] 2012 00:00:00 [employer] TRADITIONAL [id number] 2014 00:00:00 [facility] PPO 6 [id number] 2023 00:00:00 Common [facility] Problems Condition Name Condition Details Condition Category Status Onset Date Resolution Date Last Treatment Date Treating Clinician Comments Source Right hip pain Right hip pain Disease Active 2021-07 00:00: 00 [facility] Abnormal gait Abnormal gait Disease Active 2021-07 00:00: 00 [facility] Right leg weakness Right leg weakness Disease Active 2021-07 00:00: 00 [facility] Right leg weakness Right leg weakness Disease Active 2021-07 00:00: 00 [facility] Chronic heart failure with preserved ejection fraction Chronic heart failure with preserved ejection fraction Disease Active 03-17 00:00: 00 [facility] Pulmonary hypertensi on Pulmonary hypertensi on Disease Active 03-17 00:00: 00 [facility] 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 Added automatic ally from request for surgery [id number] [facility] Status post placement of ureteral stent Status post placement of ureteral stent Disease Active 12-28 00:00: 00 Overview: Formattin g of this note might be different from the original. Added automatic ally from request for surgery [id number] [facility] Shortness of breath Shortness of breath Disease Active 10-29 00:00: 00 Overview: Formattin g of this note might be different from the original. Added automatic ally from request for surgery [id number] [facility] Obesity (BMI 30-39.9) Obesity (BMI 30-39.9) Disease Active 10-29 00:00: 00 Overview: Formattin g of this note might be different from the original. Added automatic ally from request for surgery [id number] [facility] Essential hypertensi on Essential hypertensi on Disease Active 10-29 00:00: 00 Overview: Formattin g of this note might be different from the original. Added automatic ally from request for surgery [id number] [facility] Hyperlipid emia, unspecifie d hyperlipid emia type Hyperlipid emia, unspecifie d hyperlipid emia type Disease Active 10-29 00:00: 00 Overview: Formattin g of this note might be different from the original. Added automatic ally from request for surgery [id number] [facility] Abnormal nuclear cardiac imaging test Abnormal nuclear cardiac imaging test Disease Active 10-29 00:00: 00 Overview: Formattin g of this note might be different from the original. Added automatic ally from request for surgery [id number] [facility] Ascending aorta dilatation Ascending aorta dilatation Disease Active 10-27 00:00: 00 [facility] Calculus of kidney with calculus of ureter Nephrouret erolithias is Problem Common [facility] [id number] Lower urinary tract symptoms (LUTS) Problem [facility] Calculus of bladder Bladder calculi Problem [facility] [id number] Gross hematuria Problem [facility] [id number] Right sciatic nerve pain Problem [facility] [id number] BPH loc w urin obs/LUTS Problem [facility] Lower urinary tract symptoms due to benign prostatic hypertroph y Benign prostatic hyperplasi a with lower urinary tract symptoms Problem [facility] [id number] Lower obstructiv e uropathy Problem [facility] [id number] Recurrent UTI Problem [facility] [id number] Prostatic calculus Problem [facility] [id number] S/P TURP (status post transureth ral resection of prostate) Problem [facility] [id number] S/P radiation > 12 weeks Problem [facility] [id number] OAB (overactiv e bladder) Problem [facility] [id number] 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 to stage 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 and PSA greater than 20 Problem [facility] [id number] Acute lower UTI Problem [facility] [id number] Ureterolit hiasis Problem [facility] Hydronephr osis with renal and ureteral calculous obstructio n Hydronephr osis with obstructin g calculus Problem [facility] [id number] Recurrent kidney stones Problem [facility] [id number] History of nephrolith iasis Problem [facility] Allergies, Adverse Reactions, Alerts Allergy Name Allergy Type Status Severity Reaction(s) Onset Date Inactive Date Treating Clinician Comments Source Bee Sting / Venom Drug Allergy Active Swelling 12-10 00:00: 00 [facility] BEE STING / VENOM DRUG INGREDI Active Swelling 12-10 00:00: 00 [facility] Social History Social Habit Start Date Stop Date Quantity Comments Source History SDOH Alcohol Frequency [facility] History SDOH Alcohol Std Drinks [facility] History SDOH Alcohol Binge [facility] History of Tobacco Use [facility] Sex Assigned At [facility] Alcohol intake 2023-09-07 00:00:00 2023-09-07 00:00:00 Current drinker of alcohol (finding) [facility] Exposure to SARS-CoV-2 (event) 2022-11-25 00:00:00 2022-12-05 14:25:00 Not sure [facility] History of Social function 2022-01-19 00:00:00 2022-01-19 00:00:00 [facility] Alcohol Comment 2021-12-02 00:00:00 2021-12-02 00:00:00 6 pack of beer per week [facility] Tobacco use and exposure 2021-12-02 00:00:00 2021-12-02 00:00:00 User of smokeless tobacco [facility] Smoking Status Start Date Stop Date Source Never smoked tobacco [facility] Medications Ordered Medication Name Filled Medication Name Start Date Stop Date Current Medication? Ordering Clinician Indication Dosage Frequency Signature (SIG) Comments Components Source carvediloL 12.5 mg tablet 10-02 00:00: 00 Yes [id number] 12.5mg Take 1 tablet by mouth in the morning and 1 tablet in the evening. Take with meals. [facility] Amoxicillin 500 MG Amoxicillin 500 MG 09-13 00:00: 00 No 1{capsu le} TID Amoxicilli n 500 MG Amoxicillin 500 MG Amoxicillin 500 MG 09-13 00:00: 00 No 1{capsu le} TID Amoxicilli n 500 MG Amoxicillin 500 MG Amoxicillin 500 MG 09-13 00:00: 00 No 1{capsu le} TID Amoxicilli n 500 MG coenzyme Q10 100 mg softgel 09-07 10:59: 03 Yes 100mg Take 1 capsule by mouth in the morning and 1 capsule in the evening. [facility] Cholecalcif candido, Vitamin D3, 125 mcg (5,000 unit) tablet 09-07 10:59: 03 Yes 5000U Take 1 tablet by mouth in the morning. [facility] vit B complex no.12/niaci n,B3, (VITAMIN B COMPLEX NO.12-NIACI N ORAL) 09-07 10:59: 03 Yes 1000ug Take 1,000 mcg by mouth. [facility] docusate 100 mg capsule 09-07 10:59: 03 Yes 100mg Take 1 capsule by mouth in the morning. [facility] magnesium oxide 400 mg magnesium Tab 09-07 10:59: 03 Yes 1{tbl} Take 1 tablet by mouth daily. [facility] pregabalin 75 mg capsule 09-07 10:59: 03 Yes 75mg Take 1 capsule by mouth in the morning and 1 capsule at noon and 1 capsule in the evening. [facility] trospium 20 mg tablet 09-07 10:59: 03 Yes 20mg Take 1 tablet by mouth in the morning and 1 tablet in the evening. [facility] tadalafiL 5 mg tablet 09-07 10:59: 03 Yes 5mg Take 1 tablet by mouth as needed for Erectile dysfunctio n. [facility] coenzyme Q10 100 mg softgel 09-07 10:59: 03 Yes 100mg Take 1 capsule by mouth in the morning and 1 capsule in the evening. [facility] Cholecalcif candido, Vitamin D3, 125 mcg (5,000 unit) tablet 09-07 10:59: 03 Yes 5000U Take 1 tablet by mouth in the morning. [facility] vit B complex no.12/niaci n,B3, (VITAMIN B COMPLEX NO.12-NIACI N ORAL) 09-07 10:59: 03 Yes 1000ug Take 1,000 mcg by mouth. [facility] docusate 100 mg capsule 09-07 10:59: 03 Yes 100mg Take 1 capsule by mouth in the morning. [facility] magnesium oxide 400 mg magnesium Tab 09-07 10:59: 03 Yes 1{tbl} Take 1 tablet by mouth daily. [facility] pregabalin 75 mg capsule 09-07 10:59: 03 Yes 75mg Take 1 capsule by mouth in the morning and 1 capsule at noon and 1 capsule in the evening. [facility] trospium 20 mg tablet 09-07 10:59: 03 Yes 20mg Take 1 tablet by mouth in the morning and 1 tablet in the evening. [facility] tadalafiL 5 mg tablet 09-07 10:59: 03 Yes 5mg Take 1 tablet by mouth as needed for Erectile dysfunctio n. [facility] coenzyme Q10 100 mg softgel 09-07 10:59: 03 Yes 100mg Take 1 capsule by mouth in the morning and 1 capsule in the evening. [facility] Cholecalcif candido, Vitamin D3, 125 mcg (5,000 unit) tablet 09-07 10:59: 03 Yes 5000U Take 1 tablet by mouth in the morning. [facility] vit B complex no.12/niaci n,B3, (VITAMIN B COMPLEX NO.12-NIACI N ORAL) 09-07 10:59: 03 Yes 1000ug Take 1,000 mcg by mouth. [facility] docusate 100 mg capsule 09-07 10:59: 03 Yes 100mg Take 1 capsule by mouth in the morning. [facility] magnesium oxide 400 mg magnesium Tab 09-07 10:59: 03 Yes 1{tbl} Take 1 tablet by mouth daily. [facility] pregabalin 75 mg capsule 09-07 10:59: 03 Yes 75mg Take 1 capsule by mouth in the morning and 1 capsule at noon and 1 capsule in the evening. [facility] trospium 20 mg tablet 09-07 10:59: 03 Yes 20mg Take 1 tablet by mouth in the morning and 1 tablet in the evening. [facility] tadalafiL 5 mg tablet 09-07 10:59: 03 Yes 5mg Take 1 tablet by mouth as needed for Erectile dysfunctio n. [facility] coenzyme Q10 100 mg softgel 09-07 10:59: 03 Yes 100mg Take 1 capsule by mouth in the morning and 1 capsule in the evening. [facility] Cholecalcif candido, Vitamin D3, 125 mcg (5,000 unit) tablet 09-07 10:59: 03 Yes 5000U Take 1 tablet by mouth in the morning. [facility] vit B complex no.12/niaci n,B3, (VITAMIN B COMPLEX NO.12-NIACI N ORAL) 09-07 10:59: 03 Yes 1000ug Take 1,000 mcg by mouth. [facility] docusate 100 mg capsule 09-07 10:59: 03 Yes 100mg Take 1 capsule by mouth in the morning. [facility] magnesium oxide 400 mg magnesium Tab 09-07 10:59: 03 Yes 1{tbl} Take 1 tablet by mouth daily. [facility] pregabalin 75 mg capsule 09-07 10:59: 03 Yes 75mg Take 1 capsule by mouth in the morning and 1 capsule at noon and 1 capsule in the evening. [facility] trospium 20 mg tablet 09-07 10:59: 03 Yes 20mg Take 1 tablet by mouth in the morning and 1 tablet in the evening. [facility] tadalafiL 5 mg tablet 09-07 10:59: 03 Yes 5mg Take 1 tablet by mouth as needed for Erectile dysfunctio n. [facility] coenzyme Q10 100 mg softgel 09-07 10:59: 03 Yes 100mg Take 1 capsule by mouth in the morning and 1 capsule in the evening. [facility] Cholecalcif candido, Vitamin D3, 125 mcg (5,000 unit) tablet 09-07 10:59: 03 Yes 5000U Take 1 tablet by mouth in the morning. [facility] vit B complex no.12/niaci n,B3, (VITAMIN B COMPLEX NO.12-NIACI N ORAL) 09-07 10:59: 03 Yes 1000ug Take 1,000 mcg by mouth. [facility] docusate 100 mg capsule 09-07 10:59: 03 Yes 100mg Take 1 capsule by mouth in the morning. [facility] magnesium oxide 400 mg magnesium Tab 09-07 10:59: 03 Yes 1{tbl} Take 1 tablet by mouth daily. [facility] pregabalin 75 mg capsule 09-07 10:59: 03 Yes 75mg Take 1 capsule by mouth in the morning and 1 capsule at noon and 1 capsule in the evening. [facility] trospium 20 mg tablet 09-07 10:59: 03 Yes 20mg Take 1 tablet by mouth in the morning and 1 tablet in the evening. [facility] tadalafiL 5 mg tablet 09-07 10:59: 03 Yes 5mg Take 1 tablet by mouth as needed for Erectile dysfunctio n. [facility] coenzyme Q10 100 mg softgel 09-07 10:59: 03 Yes 100mg Take 1 capsule by mouth in the morning and 1 capsule in the evening. [facility] Cholecalcif candido, Vitamin D3, 125 mcg (5,000 unit) tablet 09-07 10:59: 03 Yes 5000U Take 1 tablet by mouth in the morning. [facility] vit B complex no.12/niaci n,B3, (VITAMIN B COMPLEX NO.12-NIACI N ORAL) 09-07 10:59: 03 Yes 1000ug Take 1,000 mcg by mouth. [facility] docusate 100 mg capsule 09-07 10:59: 03 Yes 100mg Take 1 capsule by mouth in the morning. [facility] magnesium oxide 400 mg magnesium Tab 09-07 10:59: 03 Yes 1{tbl} Take 1 tablet by mouth daily. [facility] pregabalin 75 mg capsule 09-07 10:59: 03 Yes 75mg Take 1 capsule by mouth in the morning and 1 capsule at noon and 1 capsule in the evening. [facility] trospium 20 mg tablet 09-07 10:59: 03 Yes 20mg Take 1 tablet by mouth in the morning and 1 tablet in the evening. [facility] tadalafiL 5 mg tablet 09-07 10:59: 03 Yes 5mg Take 1 tablet by mouth as needed for Erectile dysfunctio n. [facility] coenzyme Q10 100 mg softgel 09-07 10:59: 03 Yes 100mg Take 1 capsule by mouth in the morning and 1 capsule in the evening. [facility] Cholecalcif candiod, Vitamin D3, 125 mcg (5,000 unit) tablet 09-07 10:59: 03 Yes 5000U Take 1 tablet by mouth in the morning. [facility] vit B complex no.12/niaci n,B3, (VITAMIN B COMPLEX NO.12-NIACI N ORAL) 09-07 10:59: 03 Yes 1000ug Take 1,000 mcg by mouth. [facility] docusate 100 mg capsule 09-07 10:59: 03 Yes 100mg Take 1 capsule by mouth in the morning. [facility] magnesium oxide 400 mg magnesium Tab 09-07 10:59: 03 Yes 1{tbl} Take 1 tablet by mouth daily. [facility] pregabalin 75 mg capsule 09-07 10:59: 03 Yes 75mg Take 1 capsule by mouth in the morning and 1 capsule at noon and 1 capsule in the evening. [facility] trospium 20 mg tablet 09-07 10:59: 03 Yes 20mg Take 1 tablet by mouth in the morning and 1 tablet in the evening. [facility] tadalafiL 5 mg tablet 09-07 10:59: 03 Yes 5mg Take 1 tablet by mouth as needed for Erectile dysfunctio n. [facility] budesonide- formoteroL 160-4.5 mcg/actuati on inhaler 09-07 10:54: 25 Yes 2{puff} Inhale 2 Puffs as needed. [facility] leaf (NETTLE, STINGING MISC) 09-07 10:54: 25 Yes 1 TAB-CAP/M2 . [facility] ascorbic acid, vitamin C, 500 mg tablet 09-07 10:54: 25 Yes 500mg Take 1 tablet by mouth in the morning. [facility] sol[facility]acin 5 mg tablet 09-07 10:54: 25 Yes 5mg Take 1 tablet by mouth in the morning. [facility] budesonide- formoteroL 160-4.5 mcg/actuati on inhaler 09-07 10:54: 25 Yes 2{puff} Inhale 2 Puffs as needed. [facility] nettle leaf (NETTLE, STINGING MISC) 09-07 10:54: 25 Yes 1 TAB-CAP/M2 . [facility] ascorbic acid, vitamin C, 500 mg tablet 09-07 10:54: 25 Yes 500mg Take 1 tablet by mouth in the morning. [facility] solifenacin 5 mg tablet 09-07 10:54: 25 Yes 5mg Take 1 tablet by mouth in the morning. [facility] budesonide- formoteroL 160-4.5 mcg/actuati on inhaler 09-07 10:54: 25 Yes 2{puff} Inhale 2 Puffs as needed. [facility] nettle leaf (NETTLE, STINGING MISC) 09-07 10:54: 25 Yes 1 TAB-CAP/M2 . [facility] ascorbic acid, vitamin C, 500 mg tablet 09-07 10:54: 25 Yes 500mg Take 1 tablet by mouth in the morning. [facility] sol[facility]acin 5 mg tablet 09-07 10:54: 25 Yes 5mg Take 1 tablet by mouth in the morning. [facility] budesonide- formoteroL 160-4.5 mcg/actuati on inhaler 09-07 10:54: 25 Yes 2{puff} Inhale 2 Puffs as needed. [facility] nettle leaf (NETTLE, STINGING MISC) 09-07 10:54: 25 Yes 1 TAB-CAP/M2 . [facility] ascorbic acid, vitamin C, 500 mg tablet 09-07 10:54: 25 Yes 500mg Take 1 tablet by mouth in the morning. [facility] solifenacin 5 mg tablet 09-07 10:54: 25 Yes 5mg Take 1 tablet by mouth in the morning. [facility] budesonide- formoteroL 160-4.5 mcg/actuati on inhaler 09-07 10:54: 25 Yes 2{puff} Inhale 2 Puffs as needed. [facility] nettle leaf (NETTLE, STINGING MISC) 09-07 10:54: 25 Yes 1 TAB-CAP/M2 . [facility] ascorbic acid, vitamin C, 500 mg tablet 09-07 10:54: 25 Yes 500mg Take 1 tablet by mouth in the morning. [facility] solifenacin 5 mg tablet 09-07 10:54: 25 Yes 5mg Take 1 tablet by mouth in the morning. [facility] budesonide- formoteroL 160-4.5 mcg/actuati on inhaler 09-07 10:54: 25 Yes 2{puff} Inhale 2 Puffs as needed. [facility] nettle leaf (NETTLE, STINGING MISC) 09-07 10:54: 25 Yes 1 TAB-CAP/M2 . [facility] ascorbic acid, vitamin C, 500 mg tablet 09-07 10:54: 25 Yes 500mg Take 1 tablet by mouth in the morning. [facility] solifenacin 5 mg tablet 09-07 10:54: 25 Yes 5mg Take 1 tablet by mouth in the morning. [facility] budesonide- formoteroL 160-4.5 mcg/actuati on inhaler 09-07 10:54: 25 Yes 2{puff} Inhale 2 Puffs as needed. [facility] ity [facility] nettle leaf (NETTLE, STINGING MISC) 09-07 10:54: 25 Yes 1 TAB-CAP/M2 . [facility] ascorbic acid, vitamin C, 500 mg tablet 09-07 10:54: 25 Yes 500mg Take 1 tablet by mouth in the morning. [facility] solifenacin 5 mg tablet 09-07 10:54: 25 Yes 5mg Take 1 tablet by mouth in the morning. [facility] furosemide 20 mg tablet 14 00:00: 00 Yes [id number] 02 20 mg as needed for leg swelling daily [facility] furosemide 20 mg tablet 14 00:00: 00 Yes [id number] 02 20 mg as needed for leg swelling daily [facility] furosemide 20 mg tablet 14 00:00: 00 Yes [id number] 02 20 mg as needed for leg swelling daily [facility] furosemide 20 mg tablet -14 00:00: 00 Yes [id number] 02 20 mg as needed for leg swelling daily [facility] furosemide 20 mg tablet -14 00:00: 00 Yes [id number] 02 20 mg as needed for leg swelling daily [facility] furosemide 20 mg tablet -14 00:00: 00 Yes [id number] 02 20 mg as needed for leg swelling daily [facility] furosemide 20 mg tablet -14 00:00: 00 Yes [id number] 02 20 mg as needed for leg swelling daily [facility] furosemide 20 mg tablet -14 00:00: 00 Yes [id number] 02 20 mg as needed for leg swelling daily [facility] atorvastati n 40 mg tablet 2-09 00:00: 00 Yes [id number] 40mg Take 1 tablet by mouth at bedtime. [facility] atorvastati n 40 mg tablet 0 - 00:00: 00 Yes [id number] 40mg Take 1 tablet by mouth at bedtime. [facility] atorvastati n 40 mg tablet 0 09-01 00:00: 00 Yes [id number] 40mg Take 1 tablet by mouth at bedtime. [facility] atorvastati n 40 mg tablet 0 09-01 00:00: 00 Yes [id number] 40mg Take 1 tablet by mouth at bedtime. [facility] atorvastati n 40 mg tablet 0 09-01 00:00: 00 Yes [id number] 40mg Take 1 tablet by mouth at bedtime. [facility] atorvastati n 40 mg tablet 0 09-01 00:00: 00 Yes [id number] 40mg Take 1 tablet by mouth at bedtime. [facility] atorvastati n 40 mg tablet 0 09-01 00:00: 00 Yes [id number] 40mg Take 1 tablet by mouth at bedtime. [facility] atorvastati n 40 mg tablet 0 09-01 00:00: 00 Yes [id number] 40mg Take 1 tablet by mouth at bedtime. [facility] atorvastati n 40 mg tablet 0 09-01 00:00: 00 Yes [id number] 40mg Take 1 tablet by mouth at bedtime. [facility] Nitrofurant oin Monohyd Macro 100 MG Nitrofurant oin Monohyd Macro 100 MG 2022-07 00:00: 00 No 1{capsu le_with _food} QD Nitrofuran toin Monohyd Macro 100 MG Amoxicillin -Pot Clavulanate 875-125 MG Amoxicillin -Pot Clavulanate 875-125 MG 2022-07 00:00: 00 No 1{table t} BID Amoxicilli n-Pot Clavulanat e 875-125 MG Nitrofurant oin Monohyd Macro 100 MG Nitrofurant oin Monohyd Macro 100 MG 2022-07- 00:00: 00 No 1{capsu le_with _food} QD Nitrofuran toin Monohyd Macro 100 MG Amoxicillin -Pot Clavulanate 875-125 MG Amoxicillin -Pot Clavulanate 875-125 MG 2022-1 2-14 00:00: 00 No 1{table t} BID Amoxicilli n-Pot Clavulanat e 875-125 MG Nitrofurant oin Monohyd Macro 100 MG Nitrofurant oin Monohyd Macro 100 MG 2022-1 2-14 00:00: 00 No 1{capsu le_with _food} QD Nitrofuran toin Monohyd Macro 100 MG Amoxicillin -Pot Clavulanate 875-125 MG Amoxicillin -Pot Clavulanate 875-125 MG 2022-1 2-14 00:00: 00 No 1{table t} BID Amoxicilli n-Pot Clavulanat e 875-125 MG Nitrofurant oin Monohyd Macro 100 MG Nitrofurant oin Monohyd Macro 100 MG 2022- 2-14 00:00: 00 No 1{capsu le_with _food} QD Nitrofuran toin Monohyd Macro 100 MG Amoxicillin -Pot Clavulanate 875-125 MG Amoxicillin -Pot Clavulanate 875-125 MG 2022-1 2-14 00:00: 00 No 1{table t} BID Amoxicilli n-Pot Clavulanat e 875-125 MG Nitrofurant oin Monohyd Macro 100 MG Nitrofurant oin Monohyd Macro 100 MG 2022-1 2-14 00:00: 00 No 1{capsu le_with _food} QD Nitrofuran toin Monohyd Macro 100 MG Amoxicillin -Pot Clavulanate 875-125 MG Amoxicillin -Pot Clavulanate 875-125 MG 2022-1 2-14 00:00: 00 No 1{table t} BID Amoxicilli n-Pot Clavulanat e 875-125 MG Nitrofurant oin Monohyd Macro 100 MG Nitrofurant oin Monohyd Macro 100 MG 2022-1 2-14 00:00: 00 No 1{capsu le_with _food} QD Nitrofuran toin Monohyd Macro 100 MG Amoxicillin -Pot Clavulanate 875-125 MG Amoxicillin -Pot Clavulanate 875-125 MG 3-1 2-14 00:00: 00 No 1{table t} BID Amoxicilli n-Pot Clavulanat e 875-125 MG Nitrofurant oin Monohyd Macro 100 MG Nitrofurant oin Monohyd Macro 100 MG 2022-1 2-14 00:00: 00 No 1{capsu le_with _food} QD Nitrofuran toin Monohyd Macro 100 MG Amoxicillin -Pot Clavulanate 875-125 MG Amoxicillin -Pot Clavulanate 875-125 MG 2022-1 2-14 00:00: 00 No 1{table t} BID Amoxicilli n-Pot Clavulanat e 875-125 MG Amoxicillin -Pot Clavulanate 875-125 MG Amoxicillin -Pot Clavulanate 875-125 MG 2022-1 2-14 00:00: 00 No 1{table t} BID Amoxicilli n-Pot Clavulanat e 875-125 MG Nitrofurant oin Monohyd Macro 100 MG Nitrofurant oin Monohyd Macro 100 MG 2022-07 2-14 00:00: 00 No 1{capsu le_with _food} QD Nitrofuran toin Monohyd Macro 100 MG Amoxicillin -Pot Clavulanate 875-125 MG Amoxicillin -Pot Clavulanate 875-125 MG 2022- 2-14 00:00: 00 No 1{table t} BID Amoxicilli n-Pot Clavulanat e 875-125 MG Nitrofurant oin Monohyd Macro 100 MG Nitrofurant oin Monohyd Macro 100 MG 2022- 2-14 00:00: 00 No 1{capsu le_with _food} QD Nitrofuran toin Monohyd Macro 100 MG Nitrofurant oin Monohyd Macro 100 MG Nitrofurant oin Monohyd Macro 100 MG 2022-1 2-14 00:00: 00 No 1{capsu le_with _food} QD Nitrofuran toin Monohyd Macro 100 MG Nitrofurant oin Monohyd Macro 100 MG Nitrofurant oin Monohyd Macro 100 MG 2022- 2-14 00:00: 00 No 1{capsu le_with _food} QD Nitrofuran toin Monohyd Macro 100 MG Nitrofurant oin Monohyd Macro 100 MG Nitrofurant oin Monohyd Macro 100 MG 2022- 2-14 00:00: 00 No 1{capsu le_with _food} QD Nitrofuran toin Monohyd Macro 100 MG Nitrofurant oin&Nit. Macrocryst 100 mg capsule 2022-07 00:00: 00 Yes 100mg Take 1 capsule by mouth in the morning and 1 capsule in the evening. [facility] amoxicillin -clavulanat e 875-125 mg per tablet 2022-07 00:00: 00 Yes 1{tbl} Take 1 tablet by mouth in the morning and 1 tablet in the evening. [facility] Nitrofurant oin&Nit. Macrocryst 100 mg capsule 2022-07 00:00: 00 Yes 100mg Take 1 capsule by mouth in the morning and 1 capsule in the evening. [facility] amoxicillin -clavulanat e 875-125 mg per tablet 2022-07 00:00: 00 Yes 1{tbl} Take 1 tablet by mouth in the morning and 1 tablet in the evening. [facility] Nitrofurant oin&Nit. Macrocryst 100 mg capsule 2022-07 00:00: 00 Yes 100mg Take 1 capsule by mouth in the morning and 1 capsule in the evening. [facility] amoxicillin -clavulanat e 875-125 mg per tablet 2022-07 00:00: 00 Yes 1{tbl} Take 1 tablet by mouth in the morning and 1 tablet in the evening. [facility] Nitrofurant oin&Nit. Macrocryst 100 mg capsule 2022-07 00:00: 00 Yes 100mg Take 1 capsule by mouth in the morning and 1 capsule in the evening. [facility] amoxicillin -clavulanat e 875-125 mg per tablet 2022-07 00:00: 00 Yes 1{tbl} Take 1 tablet by mouth in the morning and 1 tablet in the evening. [facility] Nitrofurant oin&Nit. Macrocryst 100 mg capsule 2022-07 00:00: 00 Yes 100mg Take 1 capsule by mouth in the morning and 1 capsule in the evening. [facility] amoxicillin -clavulanat e 875-125 mg per tablet 2022-07 00:00: 00 Yes 1{tbl} Take 1 tablet by mouth in the morning and 1 tablet in the evening. [facility] Nitrofurant oin&Nit. Macrocryst 100 mg capsule 2022-07 00:00: 00 Yes 100mg Take 1 capsule by mouth in the morning and 1 capsule in the evening. [facility] amoxicillin -clavulanat e 875-125 mg per tablet 2022-07 00:00: 00 Yes 1{tbl} Take 1 tablet by mouth in the morning and 1 tablet in the evening. [facility] Nitrofurant oin&Nit. Macrocryst 100 mg capsule 2022-07 00:00: 00 Yes 100mg Take 1 capsule by mouth in the morning and 1 capsule in the evening. [facility] amoxicillin -clavulanat e 875-125 mg per tablet 2022-07 00:00: 00 Yes 1{tbl} Take 1 tablet by mouth in the morning and 1 tablet in the evening. [facility] sulfur hexafluorid e microsphr (LUMASON) injection 5 mL 2022-07 20:30: 00 06-08 20:23 :00 No [id number] 5mL 5 mL, Intravenou s, ONCE, 1 dose, On Jing 06/08/23 at 1430, Routine
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 [facility] pregabalin 75 mg capsule 2022-07 15:03: 10 Yes 75mg Take 1 capsule by mouth in the morning and 1 capsule at noon and 1 capsule in the evening. [facility] vit B complex no.12/niaci n,B3, (VITAMIN B COMPLEX NO.12-NIACI N ORAL) 2022-07 15:03: 10 Yes 1000ug Take 1,000 mcg by mouth. [facility] pregabalin 75 mg capsule 2022-07 15:03: 10 Yes 75mg Take 1 capsule by mouth in the morning and 1 capsule at noon and 1 capsule in the evening. [facility] vit B complex no.12/niaci n,B3, (VITAMIN B COMPLEX NO.12-NIACI N ORAL) 2022-07 15:03: 10 Yes 1000ug Take 1,000 mcg by mouth. [facility] vit B complex no.12/niaci n,B3, (VITAMIN B COMPLEX NO.12-NIACI N ORAL) 2022-07 15:03: 10 Yes 1000ug Take 1,000 mcg by mouth. [facility] pregabalin 75 mg capsule 2022-07 15:03: 10 Yes 75mg Take 1 capsule by mouth in the morning and 1 capsule at noon and 1 capsule in the evening. [facility] vit B complex no.12/niaci n,B3, (VITAMIN B COMPLEX NO.12-NIACI N ORAL) 2022-07 15:03: 10 Yes 1000ug Take 1,000 mcg by mouth. [facility] pregabalin 75 mg capsule 2022-07 15:03: 10 Yes 75mg Take 1 capsule by mouth in the morning and 1 capsule at noon and 1 capsule in the evening. [facility] vit B complex no.12/niaci n,B3, (VITAMIN B COMPLEX NO.12-NIACI N ORAL) 2022-07 15:03: 10 Yes 1000ug Take 1,000 mcg by mouth. [facility] pregabalin 75 mg capsule 2022-07 15:03: 10 Yes 75mg Take 1 capsule by mouth in the morning and 1 capsule at noon and 1 capsule in the evening. [facility] vit B complex no.12/niaci n,B3, (VITAMIN B COMPLEX NO.12-NIACI N ORAL) 2022-07 15:03: 10 Yes 1000ug Take 1,000 mcg by mouth. [facility] pregabalin 75 mg capsule 2022-07 15:03: 10 Yes 75mg Take 1 capsule by mouth in the morning and 1 capsule at noon and 1 capsule in the evening. [facility] gabapentin 300 mg capsule 2022-07 15:01: 43 Yes Take 1 capsule BID [facility] gabapentin 300 mg capsule 2022-07 15:01: 43 Yes Take 1 capsule BID [facility] gabapentin 300 mg capsule 2022-07 15:01: 43 Yes Take 1 capsule BID [facility] gabapentin 300 mg capsule 2022-07 15:01: 43 Yes Take 1 capsule BID [facility] gabapentin 300 mg capsule 2022-07 15:01: 43 Yes Take 1 capsule BID [facility] gabapentin 300 mg capsule 2022-07 15:01: 43 Yes Take 1 capsule BID [facility] gabapentin 300 mg capsule 2022-07 15:01: 43 Yes Take 1 capsule BID [facility] gabapentin 300 mg capsule 2022-07 15:01: 43 Yes Take 1 capsule BID [facility] gabapentin 300 mg capsule 2022-07 15:01: 43 Yes Take 1 capsule BID [facility] gabapentin 300 mg capsule 2022-07 15:01: 43 Yes Take 1 capsule BID [facility] gabapentin 300 mg capsule 2022-07 15:01: 43 Yes Take 1 capsule BID [facility] gabapentin 300 mg capsule 2022-07 15:01: 43 Yes Take 1 capsule BID [facility] gabapentin 300 mg capsule 2022-07 15:01: 43 Yes Take 1 capsule BID [facility] gabapentin 300 mg capsule 2022-07 15:01: 43 Yes Take 1 capsule BID [facility] furosemide 20 mg tablet 2022-07 00:00: 00 Yes [id number] 02 20 mg as needed for leg swelling daily [facility] carvediloL 12.5 mg tablet 2022-07 00:00: 00 Yes [id number] 12.5mg Take 1 tablet by mouth in the morning and 1 tablet in the evening. Take with meals. [facility] spironolact one 25 mg tablet 2022-07 00:00: 00 Yes [id number] 25mg Take 1 tablet by mouth in the morning. [facility]-07 00:00: 00 Yes [id number] 02 20 mg as needed for leg swelling daily [facility] carvediloL 12.5 mg tablet 2022-07 00:00: 00 Yes [id number] 12.5mg Take 1 tablet by mouth in the morning and 1 tablet in the evening. Take with meals. [facility] spironolact one 25 mg tablet 2022-07 00:00: 00 Yes [id number] 25mg Take 1 tablet by mouth in the morning. [facility] furosemide 20 mg tablet 2022-07 00:00: 00 Yes [id number] 02 20 mg as needed for leg swelling daily [facility] carvediloL 12.5 mg tablet 2022-07 00:00: 00 Yes [id number] 12.5mg Take 1 tablet by mouth in the morning and 1 tablet in the evening. Take with meals. [facility] spironolact one 25 mg tablet 2022-07 00:00: 00 Yes [id number] 25mg Take 1 tablet by mouth in the morning. [facility] furosemide 20 mg tablet 2022-07 00:00: 00 Yes [id number] 02 20 mg as needed for leg swelling daily [facility] carvediloL 12.5 mg tablet 2022-07 00:00: 00 Yes [id number] 12.5mg Take 1 tablet by mouth in the morning and 1 tablet in the evening. Take with meals. [facility] spironolact one 25 mg tablet 2022-07 00:00: 00 Yes [id number] 25mg Take 1 tablet by mouth in the morning. [facility] furosemide 20 mg tablet 2022-07 00:00: 00 Yes [id number] 02 20 mg as needed for leg swelling daily [facility] carvediloL 12.5 mg tablet 2022-07 00:00: 00 Yes [id number] 12.5mg Take 1 tablet by mouth in the morning and 1 tablet in the evening. Take with meals. [facility] spironolact one 25 mg tablet 2022-07 00:00: 00 Yes [id number] 25mg Take 1 tablet by mouth in the morning. [facility] carvediloL 12.5 mg tablet 2022-07 00:00: 00 Yes [id number] 12.5mg Take 1 tablet by mouth in the morning and 1 tablet in the evening. Take with meals. [facility] spironolact one 25 mg tablet 2022-07 00:00: 00 Yes [id number] 25mg Take 1 tablet by mouth in the morning. [facility] carvediloL 12.5 mg tablet 2022-07 00:00: 00 Yes [id number] 12.5mg Take 1 tablet by mouth in the morning and 1 tablet in the evening. Take with meals. [facility] spironolact one 25 mg tablet 2022-07 00:00: 00 Yes [id number] 25mg Take 1 tablet by mouth in the morning. [facility] carvediloL 12.5 mg tablet 2022-07 00:00: 00 Yes [id number] 12.5mg Take 1 tablet by mouth in the morning and 1 tablet in the evening. Take with meals. [facility] spironolact one 25 mg tablet 2022-07 00:00: 00 Yes [id number] 25mg Take 1 tablet by mouth in the morning. [facility] carvediloL 12.5 mg tablet 2022-07 00:00: 00 Yes [id number] 12.5mg Take 1 tablet by mouth in the morning and 1 tablet in the evening. Take with meals. [facility] spironolact one 25 mg tablet 2022-07 00:00: 00 Yes [id number] 25mg Take 1 tablet by mouth in the morning. [facility] carvediloL 12.5 mg tablet 2022-07 00:00: 00 Yes [id number] 12.5mg Take 1 tablet by mouth in the morning and 1 tablet in the evening. Take with meals. [facility] spironolact one 25 mg tablet 2022-07 00:00: 00 Yes [id number] 25mg Take 1 tablet by mouth in the morning. [facility] carvediloL 12.5 mg tablet 2022-07 00:00: 00 Yes [id number] 12.5mg Take 1 tablet by mouth in the morning and 1 tablet in the evening. Take with meals. [facility] spironolact one 25 mg tablet 2022-07 00:00: 00 Yes [id number] 25mg Take 1 tablet by mouth in the morning. [facility] carvediloL 12.5 mg tablet 2022-07 00:00: 00 Yes [id number] 12.5mg Take 1 tablet by mouth in the morning and 1 tablet in the evening. Take with meals. [facility] spironolact one 25 mg tablet 2022-07 00:00: 00 Yes [id number] 25mg Take 1 tablet by mouth in the morning. [facility] spironolact one 25 mg tablet 2022-07 00:00: 00 Yes [id number] 25mg Take 1 tablet by mouth in the morning. [facility] carvediloL 12.5 mg tablet 2022-07 00:00: 00 10-02 00:00 :00 No [id number] 12.5mg Take 1 tablet by mouth in the morning and 1 tablet in the evening. Take with meals. [facility] furosemide 20 mg tablet 2022-07 00:00: 00 09-06 00:00 :00 No [id number] 02 20 mg as needed for leg swelling daily [facility] Nitrofurant oin Monohyd Macro 100 MG Nitrofurant oin Monohyd Macro 100 MG 03-25 00:00: 00 No 1{capsu le_with _food} QD Nitrofuran toin Monohyd Macro 100 MG Amoxicillin 500 MG Amoxicillin 500 MG 03-25 00:00: 00 No 1{capsu le} TID Amoxicilli n 500 MG Nitrofurant oin Monohyd Macro 100 MG Nitrofurant oin Monohyd Macro 100 MG 3-0 - 00:00: 00 No 1{capsu le_with _food} QD Nitrofuran toin Monohyd Macro 100 MG Amoxicillin 500 MG Amoxicillin 500 MG 3-0 - 00:00: 00 No 1{capsu le} TID Amoxicilli n 500 MG Nitrofurant oin Monohyd Macro 100 MG Nitrofurant oin Monohyd Macro 100 MG 3-0 - 00:00: 00 No 1{capsu le_with _food} QD Nitrofuran toin Monohyd Macro 100 MG Amoxicillin 500 MG Amoxicillin 500 MG 2022-0 - 00:00: 00 No 1{capsu le} TID Amoxicilli n 500 MG Nitrofurant oin Monohyd Macro 100 MG Nitrofurant oin Monohyd Macro 100 MG 2022-0 - 00:00: 00 No 1{capsu le_with _food} QD Nitrofuran toin Monohyd Macro 100 MG Amoxicillin 500 MG Amoxicillin 500 MG 2022-0 03-25 00:00: 00 No 1{capsu le} TID Amoxicilli n 500 MG Nitrofurant oin Monohyd Macro 100 MG Nitrofurant oin Monohyd Macro 100 MG 2022-0 03-25 00:00: 00 No 1{capsu le_with _food} QD Nitrofuran toin Monohyd Macro 100 MG Amoxicillin 500 MG Amoxicillin 500 MG 2022-0 - 00:00: 00 No 1{capsu le} TID Amoxicilli n 500 MG Amoxicillin 500 MG Amoxicillin 500 MG 2022-0 - 00:00: 00 No 1{capsu le} TID Amoxicilli n 500 MG Amoxicillin 500 MG Amoxicillin 500 MG 3-0 - 00:00: 00 No 1{capsu le} TID Amoxicilli n 500 MG Amoxicillin 500 MG Amoxicillin 500 MG 2022-0 - 00:00: 00 No 1{capsu le} TID Amoxicilli n 500 MG Amoxicillin 500 MG Amoxicillin 500 MG 3-0 - 00:00: 00 No 1{capsu le} TID Amoxicilli n 500 MG Amoxicillin 500 MG Amoxicillin 500 MG 3-0 9- 00:00: 00 No 1{capsu le} TID Amoxicilli n 500 MG Amoxicillin 500 MG Amoxicillin 500 MG 3-0 9- 00:00: 00 No 1{capsu le} TID Amoxicilli n 500 MG Amoxicillin 500 MG Amoxicillin 500 MG 2023-0 9- 00:00: 00 No 1{capsu le} TID Amoxicilli n 500 MG Amoxicillin 500 MG Amoxicillin 500 MG 2022-0 - 00:00: 00 No 1{capsu le} TID Amoxicilli n 500 MG Amoxicillin 500 MG Amoxicillin 500 MG 2022-0 - 00:00: 00 No 1{capsu le} TID Amoxicilli n 500 MG Amoxicillin 500 MG Amoxicillin 500 MG 2022-0 - 00:00: 00 No 1{capsu le} TID Amoxicilli n 500 MG Amoxicillin 500 MG Amoxicillin 500 MG 2022-0 - 00:00: 00 No 1{capsu le} TID Amoxicilli n 500 MG Amoxicillin 500 MG Amoxicillin 500 MG 0 12-21 00:00: 00 No 1{capsu le} TID Amoxicilli n 500 MG Amoxicillin 500 MG Amoxicillin 500 MG 0 12-21 00:00: 00 No 1{capsu le} TID Amoxicilli n 500 MG Amoxicillin 500 MG Amoxicillin 500 MG 0 12-21 00:00: 00 No 1{capsu le} TID Amoxicilli n 500 MG Amoxicillin 500 MG Amoxicillin 500 MG 2022-0 - 00:00: 00 No 1{capsu le} TID Amoxicilli n 500 MG Amoxicillin 500 MG Amoxicillin 500 MG 2022-0 - 00:00: 00 No 1{capsu le} TID Amoxicilli n 500 MG Amoxicillin 500 MG Amoxicillin 500 MG 2022-0 - 00:00: 00 No 1{capsu le} TID Amoxicilli n 500 MG Amoxicillin 500 MG Amoxicillin 500 MG 2022-0 - 00:00: 00 No 1{capsu le} TID Amoxicilli n 500 MG Amoxicillin 500 MG Amoxicillin 500 MG 2022-0 - 00:00: 00 No 1{capsu le} TID Amoxicilli n 500 MG furosemide 20 mg tablet 0 -17 00:00: 00 Yes [id number] 02 20mg Take 1 tablet by mouth in the morning. [facility] furosemide 20 mg tablet 2022-0 -17 00:00: 00 Yes [id number] 02 20mg Take 1 tablet by mouth in the morning. [facility] furosemide 20 mg tablet 2022-0 -17 00:00: 00 Yes [id number] 02 20mg Take 1 tablet by mouth in the morning. [facility] furosemide 20 mg tablet 2022-0 -17 00:00: 00 Yes [id number] 02 20mg Take 1 tablet by mouth in the morning. [facility] furosemide 20 mg tablet 2022-0 -17 00:00: 00 Yes [id number] 02 20mg Take 1 tablet by mouth in the morning. [facility] furosemide 20 mg tablet 2022-0 -17 00:00: 00 Yes [id number] 02 20mg Take 1 tablet by mouth in the morning. [facility] furosemide 20 mg tablet 2022-0 -17 00:00: 00 Yes [id number] 02 20mg Take 1 tablet by mouth in the morning. [facility] furosemide 20 mg tablet 2022-0 -17 00:00: 00 Yes [id number] 02 20mg Take 1 tablet by mouth in the morning. [facility] furosemide 20 mg tablet 2022-0 -17 00:00: 00 Yes [id number] 02 20mg Take 1 tablet by mouth in the morning. [facility] furosemide 20 mg tablet 2022-0 -17 00:00: 00 Yes [id number] 02 20mg Take 1 tablet by mouth in the morning. [facility] furosemide 20 mg tablet 3-0 -17 00:00: 00 Yes [id number] 02 20mg Take 1 tablet by mouth in the morning. [facility] furosemide 20 mg tablet 3-0 -17 00:00: 00 Yes [id number] 02 20mg Take 1 tablet by mouth in the morning. [facility] furosemide 20 mg tablet 2022-0 -17 00:00: 00 Yes [id number] 02 20mg Take 1 tablet by mouth in the morning. [facility] furosemide 20 mg tablet 2022-0 5-17 00:00: 00 Yes [id number] 02 20mg Take 1 tablet by mouth in the morning. [facility] furosemide 20 mg tablet 3-0 5-17 00:00: 00 Yes [id number] 02 20mg Take 1 tablet by mouth in the morning. [facility] furosemide 20 mg tablet 3-0 5-17 00:00: 00 Yes [id number] 02 20mg Take 1 tablet by mouth in the morning. [facility] 20[facility]-0 5-17 00:00: 00 16 00:00 :00 No [id number] 02 20mg Take 1 tablet by mouth in the morning. [facility] furosemide 20 mg tablet 2022-0 -17 00:00: 00 06-08 00:00 :00 No [id number] 02 20mg Take 1 tablet by mouth in the morning. [facility] furosemide 20 mg tablet 2022-0 -17 00:00: 00 16 00:00 :00 No [id number] 02 20mg Take 1 tablet by mouth in the morning. [facility] gabapentin 300 mg capsule 2022-0 5-15 14:49: 35 Yes Take 1 capsule BID [facility] gabapentin 300 mg capsule 3-0 5-15 14:49: 35 Yes Take 1 capsule BID [facility] gabapentin 300 mg capsule 3-0 5-15 14:49: 35 Yes Take 1 capsule BID [facility] 3-0 5-15 14:49: 35 Yes Take 1 capsule BID [facility] capsule 3-0 5-15 14:49: 35 Yes Take 1 capsule BID [facility] mg capsule 3-0 5-15 14:49: 35 Yes Take 1 capsule BID [facility] gabapentin 300 mg capsule 3-0 5-15 14:49: 35 Yes Take 1 capsule BID [facility] gabapentin 300 mg capsule 2023-0 5-15 14:49: 35 Yes Take 1 capsule BID [facility] gabapentin 300 mg capsule 2023-0 5-15 14:49: 35 Yes Take 1 capsule BID [facility] gabapentin 300 mg capsule 2023-0 5-15 14:49: 35 Yes Take 1 capsule BID [facility] gabapentin 300 mg capsule 3-0 5-15 14:49: 35 Yes Take 1 capsule BID [facility] gabapentin 300 mg capsule 2023-0 5-15 14:49: 35 Yes Take 1 capsule BID [facility] gabapentin 300 mg capsule 3-0 5-15 14:49: 35 Yes Take 1 capsule BID [facility] gabapentin 300 mg capsule 3-0 5-15 14:49: 35 Yes Take 1 capsule BID [facility] gabapentin 300 mg capsule 3-0 5-15 14:49: 35 Yes Take 1 capsule BID [facility] gabapentin 300 mg capsule 3-0 5-15 14:49: 35 Yes Take 1 capsule BID [facility] gabapentin 300 mg capsule 3-0 5-15 14:49: 35 Yes Take 1 capsule BID [facility] gabapentin 300 mg capsule 3-0 5-15 14:49: 35 Yes Take 1 capsule BID [facility] gabapentin 300 mg capsule 3-0 5-15 14:49: 35 Yes Take 1 capsule BID [facility] furosemide 20 mg tablet 2022-0 5-12 00:00: 00 Yes [id number] 02 20mg Take 1 tablet by mouth in the morning. [facility] furosemide 20 mg tablet 3-0 5-12 00:00: 00 Yes [id number] 02 20mg Take 1 tablet by mouth in the morning. [facility] furosemide 20 mg tablet 3-0 5-12 00:00: 00 Yes [id number] 02 20mg Take 1 tablet by mouth in the morning. [facility] furosemide 20 mg tablet 3-0 5-12 00:00: 00 Yes [id number] 02 20mg Take 1 tablet by mouth in the morning. [facility] furosemide 20 mg tablet 2022-0 5-12 00:00: 00 12-07 00:00 :00 No [id number] 02 20mg Take 1 tablet by mouth in the morning. [facility] furosemide 20 mg tablet 3-0 5-12 00:00: 00 12-07 00:00 :00 No [id number] 02 20mg Take 1 tablet by mouth in the morning. [facility] Amoxicillin -Pot Clavulanate 875-125 MG Amoxicillin -Pot Clavulanate 875-125 MG 2023-0 4-13 00:00: 00 No 1{table t} BID Amoxicilli n-Pot Clavulanat e 875-125 MG Amoxicillin -Pot Clavulanate 875-125 MG Amoxicillin -Pot Clavulanate 875-125 MG 2023-0 4-13 00:00: 00 No 1{table t} BID Amoxicilli n-Pot Clavulanat e 875-125 MG Amoxicillin -Pot Clavulanate 875-125 MG Amoxicillin -Pot Clavulanate 875-125 MG 2023-0 4-13 00:00: 00 No 1{table t} BID Amoxicilli n-Pot Clavulanat e 875-125 MG Amoxicillin -Pot Clavulanate 875-125 MG Amoxicillin -Pot Clavulanate 875-125 MG 2023-0 4-13 00:00: 00 No 1{table t} BID Amoxicilli n-Pot Clavulanat e 875-125 MG Amoxicillin -Pot Clavulanate 875-125 MG Amoxicillin -Pot Clavulanate 875-125 MG 2023-0 4-13 00:00: 00 No 1{table t} BID Amoxicilli n-Pot Clavulanat e 875-125 MG Amoxicillin -Pot Clavulanate 875-125 MG Amoxicillin -Pot Clavulanate 875-125 MG 2023-0 4-13 00:00: 00 No 1{table t} BID Amoxicilli n-Pot Clavulanat e 875-125 MG Amoxicillin -Pot Clavulanate 875-125 MG Amoxicillin -Pot Clavulanate 875-125 MG 2023-0 4-13 00:00: 00 No 1{table t} BID Amoxicilli n-Pot Clavulanat e 875-125 MG Amoxicillin -Pot Clavulanate 875-125 MG Amoxicillin -Pot Clavulanate 875-125 MG 3-0 11-03 00:00: 00 No 1{table t} BID Amoxicilli n-Pot Clavulanat e 875-125 MG Amoxicillin -Pot Clavulanate 875-125 MG Amoxicillin -Pot Clavulanate 875-125 MG 3-0 11-03 00:00: 00 No 1{table t} BID Amoxicilli n-Pot Clavulanat e 875-125 MG Amoxicillin -Pot Clavulanate 875-125 MG Amoxicillin -Pot Clavulanate 875-125 MG 3-0 11-03 00:00: 00 No 1{table t} BID Amoxicilli n-Pot Clavulanat e 875-125 MG Amoxicillin -Pot Clavulanate 875-125 MG Amoxicillin -Pot Clavulanate 875-125 MG 3-0 11-03 00:00: 00 No 1{table t} BID Amoxicilli n-Pot Clavulanat e 875-125 MG Amoxicillin -Pot Clavulanate 875-125 MG Amoxicillin -Pot Clavulanate 875-125 MG 3-0 11-03 00:00: 00 No 1{table t} BID Amoxicilli n-Pot Clavulanat e 875-125 MG furosemide 20 mg tablet 11-01 00:00: 00 Yes 20mg Take 1 tablet by mouth in the morning. [facility] furosemide 20 mg tablet 11-01 00:00: 00 12-02 00:00 :00 No 20mg Take 1 tablet by mouth in the morning. [facility] ascorbic acid, vitamin C, 500 mg tablet 09-05 09:53: 50 Yes 500mg Take 500 mg by mouth daily. [facility] docusate 100 mg capsule 09-05 09:53: 50 Yes 100mg Take 100 mg by mouth daily. [facility] ascorbic acid, vitamin C, 500 mg tablet 09-05 09:53: 50 Yes 500mg Take 500 mg by mouth daily. [facility] d[facility] mg capsule 0 09-05 09:53: 50 Yes 100mg Take 100 mg by mouth daily. [facility] ascorbic acid, vitamin C, 500 mg tablet 0 09-05 09:53: 50 Yes 500mg Take 500 mg by mouth daily. [facility] docus[facility] mg capsule 0 09-05 09:53: 50 Yes 100mg Take 100 mg by mouth daily. [facility] ascorbic acid, vitamin C, 500 mg tablet 0 09-05 09:53: 50 Yes 500mg Take 500 mg by mouth daily. [facility] docusate [facility] mg capsule 0 09-05 09:53: 50 Yes 100mg Take 100 mg by mouth daily. [facility] ascorbic acid, vitamin C, 500 mg tablet 0 09-05 09:53: 50 Yes 500mg Take 500 mg by mouth daily. [facility] docusate 100 mg capsule 0 09-05 09:53: 50 Yes 100mg Take 100 mg by mouth daily. [facility] ascorbic acid, vitamin C, 500 mg tablet 0 09-05 09:53: 50 Yes 500mg Take 500 mg by mouth daily. [facility] docusate 100 mg capsule 0 09-05 09:53: 50 Yes 100mg Take 100 mg by mouth daily. [facility] ascorbic acid, vitamin C, 500 mg tablet 0 09-05 09:53: 50 Yes 500mg Take 500 mg by mouth daily. [facility] docusate 100 mg capsule 0 09-05 09:53: 50 Yes 100mg Take 100 mg by mouth daily. [facility] ascorbic acid, vitamin C, 500 mg tablet 0 09-05 09:53: 50 Yes 500mg Take 500 mg by mouth daily. [facility] docusate 100 mg capsule 0 09-05 09:53: 50 Yes 100mg Take 100 mg by mouth daily. [facility] ascorbic acid, vitamin C, 500 mg tablet 0 09-05 09:53: 50 Yes 500mg Take 500 mg by mouth daily. [facility] docusate 100 mg capsule 0 09-05 09:53: 50 Yes 100mg Take 100 mg by mouth daily. [facility] ascorbic acid, vitamin C, 500 mg tablet 0 09-05 09:53: 50 Yes 500mg Take 500 mg by mouth daily. [facility] docusate 100 mg capsule 0 09-05 09:53: 50 Yes 100mg Take 100 mg by mouth daily. [facility] ascorbic acid, vitamin C, 500 mg tablet 0 09-05 09:53: 50 Yes 500mg Take 500 mg by mouth daily. [facility] docusate 100 mg capsule 0 09-05 09:53: 50 Yes 100mg Take 100 mg by mouth daily. [facility] ascorbic acid, vitamin C, 500 mg tablet 0 09-05 09:53: 50 Yes 500mg Take 500 mg by mouth daily. [facility] docusate 100 mg capsule 0 09-05 09:53: 50 Yes 100mg Take 100 mg by mouth daily. [facility] ascorbic acid, vitamin C, 500 mg tablet 0 09-05 09:53: 50 Yes 500mg Take 500 mg by mouth daily. [facility] docusate 100 mg capsule 0 09-05 09:53: 50 Yes 100mg Take 100 mg by mouth daily. [facility] ascorbic acid, vitamin C, 500 mg tablet 0 09-05 09:53: 50 Yes 500mg Take 500 mg by mouth daily. [facility] docusate 100 mg capsule 0 09-05 09:53: 50 Yes 100mg Take 100 mg by mouth daily. [facility] ascorbic acid, vitamin C, 500 mg tablet 0 09-05 09:53: 50 Yes 500mg Take 500 mg by mouth daily. [facility] docusate 100 mg capsule 0 09-05 09:53: 50 Yes 100mg Take 100 mg by mouth daily. [facility] ascorbic acid, vitamin C, 500 mg tablet 0 09-05 09:53: 50 Yes 500mg Take 500 mg by mouth daily. [facility] docusate 100 mg capsule 0 09-05 09:53: 50 Yes 100mg Take 100 mg by mouth daily. [facility] ascorbic acid, vitamin C, 500 mg tablet 0 09-05 09:53: 50 Yes 500mg Take 500 mg by mouth daily. [facility] docusate 100 mg capsule 0 09-05 09:53: 50 Yes 100mg Take 100 mg by mouth daily. [facility] ascorbic acid, vitamin C, 500 mg tablet 0 09-05 09:53: 50 Yes 500mg Take 500 mg by mouth daily. [facility] docusate 100 mg capsule 0 09-05 09:53: 50 Yes 100mg Take 100 mg by mouth daily. [facility] ascorbic acid, vitamin C, 500 mg tablet 0 09-05 09:53: 50 Yes 500mg Take 500 mg by mouth daily. [facility] docusate 100 mg capsule 0 09-05 09:53: 50 Yes 100mg Take 100 mg by mouth daily. [facility] ascorbic acid, vitamin C, 500 mg tablet 0 09-05 09:53: 50 Yes 500mg Take 500 mg by mouth daily. [facility] docusate 100 mg capsule 0 09-05 09:53: 50 Yes 100mg Take 100 mg by mouth daily. [facility] ascorbic acid, vitamin C, 500 mg tablet 0 09-05 09:53: 50 Yes 500mg Take 500 mg by mouth daily. [facility] docusate 100 mg capsule 0 09-05 09:53: 50 Yes 100mg Take 100 mg by mouth daily. [facility] ascorbic acid, vitamin C, 500 mg tablet 0 09-05 09:53: 50 Yes 500mg Take 500 mg by mouth daily. [facility] docusate 100 mg capsule 0 09-05 09:53: 50 Yes 100mg Take 100 mg by mouth daily. [facility] ascorbic acid, vitamin C, 500 mg tablet 0 09-05 09:53: 50 Yes 500mg Take 500 mg by mouth daily. [facility] docusate 100 mg capsule 0 09-05 09:53: 50 Yes 100mg Take 100 mg by mouth daily. [facility] ascorbic acid, vitamin C, 500 mg tablet 0 09-05 09:53: 50 Yes 500mg Take 500 mg by mouth daily. [facility] docusate [facility] mg capsule 0 09-05 09:53: 50 Yes 100mg Take 100 mg by mouth daily. [facility] ascorbic acid, vitamin C, 500 mg tablet 0 09-05 09:53: 50 Yes 500mg Take 500 mg by mouth daily. [facility] docusate 100 mg capsule 0 09-05 09:53: 50 Yes 100mg Take 100 mg by mouth daily. [facility] ascorbic acid, vitamin C, 500 mg tablet 09-05 09:53: 50 Yes 500mg Take 500 mg by mouth daily. [facility] docusate 100 mg capsule 0 09-05 09:53: 50 Yes 100mg Take 100 mg by mouth daily. [facility] ascorbic acid, vitamin C, 500 mg tablet 0 09-05 09:53: 50 Yes 500mg Take 500 mg by mouth daily. [facility] docusate 100 mg capsule 0 09-05 09:53: 50 Yes 100mg Take 100 mg by mouth daily. [facility] ascorbic acid, vitamin C, 500 mg tablet 0 09-05 09:53: 50 Yes 500mg Take 500 mg by mouth daily. [facility] docusate 100 mg capsule 0 09-05 09:53: 50 Yes 100mg Take 100 mg by mouth daily. [facility] ascorbic acid, vitamin C, 500 mg tablet 0 09-05 09:53: 50 Yes 500mg Take 500 mg by mouth daily. [facility] docusate 100 mg capsule 09-05 09:53: 50 Yes 100mg Take 100 mg by mouth daily. [facility] ascorbic acid, vitamin C, 500 mg tablet 09-05 09:53: 50 Yes 500mg Take 500 mg by mouth daily. [facility] docusate 100 mg capsule 09-05 09:53: 50 Yes 100mg Take 100 mg by mouth daily. [facility] ascorbic acid, vitamin C, 500 mg tablet 09-05 09:53: 50 Yes 500mg Take 500 mg by mouth daily. [facility] docusate 100 mg capsule 09-05 09:53: 50 Yes 100mg Take 100 mg by mouth daily. [facility] ascorbic acid, vitamin C, 500 mg tablet 09-05 09:53: 50 Yes 500mg Take 500 mg by mouth daily. [facility] docusate 100 mg capsule 09-05 09:53: 50 Yes 100mg Take 100 mg by mouth daily. [facility] spironolact one 25 mg tablet 09-05 00:00: 00 Yes 12.5mg Take 0.5 tablets by mouth in the morning. [facility] metoprolol tartrate 50 mg tablet 09-05 00:00: 00 Yes [id number] 50mg Take 1 tablet by mouth in the morning and 1 tablet in the evening. [facility] atorvastati n 40 mg tablet 0 09-05 00:00: 00 Yes [id number] 40mg Take 1 tablet by mouth at bedtime. [facility] spironolact one 25 mg tablet 09-05 00:00: 00 Yes 12.5mg Take 0.5 tablets by mouth in the morning. [facility] metoprolol tartrate 50 mg tablet 09-05 00:00: 00 Yes [id number] 50mg Take 1 tablet by mouth in the morning and 1 tablet in the evening. [facility] atorvastati n 40 mg tablet 2022-0 09-05 00:00: 00 Yes [id number] 40mg Take 1 tablet by mouth at bedtime. [facility] spironolact one 25 mg tablet 2022-0 2-13 00:00: 00 Yes 12.5mg Take 0.5 tablets by mouth in the morning. [facility] metoprolol tartrate 50 mg tablet 2022-0 2-13 00:00: 00 Yes [id number] 50mg Take 1 tablet by mouth in the morning and 1 tablet in the evening. [facility] atorvastati n 40 mg tablet 2022-0 2-13 00:00: 00 Yes [id number] 40mg Take 1 tablet by mouth at bedtime. [facility] spironolact one 25 mg tablet 2022-0 -13 00:00: 00 Yes 12.5mg Take 0.5 tablets by mouth in the morning. [facility] metoprolol tartrate 50 mg tablet 2022-0 -13 00:00: 00 Yes [id number] 50mg Take 1 tablet by mouth in the morning and 1 tablet in the evening. [facility] atorvastati n 40 mg tablet 2022-0 -13 00:00: 00 Yes [id number] 40mg Take 1 tablet by mouth at bedtime. [facility] spironolact one 25 mg tablet 0 2-13 00:00: 00 Yes 12.5mg Take 0.5 tablets by mouth in the morning. [facility] metoprolol tartrate 50 mg tablet 2022-0 2-13 00:00: 00 Yes [id number] 50mg Take 1 tablet by mouth in the morning and 1 tablet in the evening. [facility] atorvastati n 40 mg tablet 2022-0 2-13 00:00: 00 Yes [id number] 40mg Take 1 tablet by mouth at bedtime. [facility] spironolact one 25 mg tablet 2022-0 2-13 00:00: 00 Yes 12.5mg Take 0.5 tablets by mouth in the morning. [facility] metoprolol tartrate 50 mg tablet 2022-0 2-13 00:00: 00 Yes [id number] 50mg Take 1 tablet by mouth in the morning and 1 tablet in the evening. [facility] atorvastati n 40 mg tablet 2022-0 2-13 00:00: 00 Yes [id number] 40mg Take 1 tablet by mouth at bedtime. [facility] spironolact one 25 mg tablet 2022-0 2-13 00:00: 00 Yes 12.5mg Take 0.5 tablets by mouth in the morning. [facility] metoprolol tartrate 50 mg tablet 2022-0 2-13 00:00: 00 Yes [id number] 50mg Take 1 tablet by mouth in the morning and 1 tablet in the evening. [facility] atorvastati n 40 mg tablet 2022-0 -13 00:00: 00 Yes [id number] 40mg Take 1 tablet by mouth at bedtime. [facility] spironolact one 25 mg tablet 2022-0 -13 00:00: 00 Yes 12.5mg Take 0.5 tablets by mouth in the morning. [facility] metoprolol tartrate 50 mg tablet 2022-0 -13 00:00: 00 Yes [id number] 50mg Take 1 tablet by mouth in the morning and 1 tablet in the evening. [facility] atorvastati n 40 mg tablet 2022-0 -13 00:00: 00 Yes [id number] 40mg Take 1 tablet by mouth at bedtime. [facility] spironolact one 25 mg tablet 2022-0 2-13 00:00: 00 Yes 12.5mg Take 0.5 tablets by mouth in the morning. [facility] metoprolol tartrate 50 mg tablet 2022-0 2-13 00:00: 00 Yes [id number] 50mg Take 1 tablet by mouth in the morning and 1 tablet in the evening. [facility] atorvastati n 40 mg tablet 2022-0 2-13 00:00: 00 Yes [id number] 40mg Take 1 tablet by mouth at bedtime. [facility] spironolact one 25 mg tablet 2022-0 2-13 00:00: 00 Yes 12.5mg Take 0.5 tablets by mouth in the morning. [facility] metoprolol tartrate 50 mg tablet 2022-0 2-13 00:00: 00 Yes [id number] 50mg Take 1 tablet by mouth in the morning and 1 tablet in the evening. [facility] atorvastati n 40 mg tablet 2022-0 2-13 00:00: 00 Yes [id number] 40mg Take 1 tablet by mouth at bedtime. [facility] spironolact one 25 mg tablet 2022-0 2-13 00:00: 00 Yes 12.5mg Take 0.5 tablets by mouth in the morning. [facility] metoprolol tartrate 50 mg tablet 2022-0 -13 00:00: 00 Yes [id number] 50mg Take 1 tablet by mouth in the morning and 1 tablet in the evening. [facility] atorvastati n 40 mg tablet 2022-0 2-13 00:00: 00 Yes [id number] 40mg Take 1 tablet by mouth at bedtime. [facility] spironolact one 25 mg tablet 2022-0 2-13 00:00: 00 Yes 12.5mg Take 0.5 tablets by mouth in the morning. [facility] metoprolol tartrate 50 mg tablet 2022-0 -13 00:00: 00 Yes [id number] 50mg Take 1 tablet by mouth in the morning and 1 tablet in the evening. [facility] atorvastati n 40 mg tablet 2022-0 2-13 00:00: 00 Yes [id number] 40mg Take 1 tablet by mouth at bedtime. [facility] spironolact one 25 mg tablet 2022-0 2-13 00:00: 00 Yes 12.5mg Take 0.5 tablets by mouth in the morning. [facility] metoprolol tartrate 50 mg tablet 2022-0 2-13 00:00: 00 Yes [id number] 50mg Take 1 tablet by mouth in the morning and 1 tablet in the evening. [facility] atorvastati n 40 mg tablet 2022-0 2-13 00:00: 00 Yes [id number] 40mg Take 1 tablet by mouth at bedtime. [facility] spironolact one 25 mg tablet 2022-0 2-13 00:00: 00 Yes 12.5mg Take 0.5 tablets by mouth in the morning. [facility] metoprolol tartrate 50 mg tablet 2022-0 2-13 00:00: 00 Yes [id number] 50mg Take 1 tablet by mouth in the morning and 1 tablet in the evening. [facility] atorvastati n 40 mg tablet 2022-0 2-13 00:00: 00 Yes [id number] 40mg Take 1 tablet by mouth at bedtime. [facility] spironolact one 25 mg tablet 2022-0 2-13 00:00: 00 Yes 12.5mg Take 0.5 tablets by mouth in the morning. [facility] metoprolol tartrate 50 mg tablet 2022-0 2-13 00:00: 00 Yes [id number] 50mg Take 1 tablet by mouth in the morning and 1 tablet in the evening. [facility] atorvastati n 40 mg tablet 2022-0 2-13 00:00: 00 Yes [id number] 40mg Take 1 tablet by mouth at bedtime. [facility] spironolact one 25 mg tablet 2022-0 2-13 00:00: 00 Yes 12.5mg Take 0.5 tablets by mouth in the morning. [facility] metoprolol tartrate 50 mg tablet 2022-0 2-13 00:00: 00 Yes [id number] 50mg Take 1 tablet by mouth in the morning and 1 tablet in the evening. [facility] atorvastati n 40 mg tablet 3-0 2-13 00:00: 00 Yes [id number] 40mg Take 1 tablet by mouth at bedtime. [facility] spironolact one 25 mg tablet 3-0 2-13 00:00: 00 Yes 12.5mg Take 0.5 tablets by mouth in the morning. [facility] metoprolol tartrate 50 mg tablet 2022-0 2-13 00:00: 00 Yes [id number] 50mg Take 1 tablet by mouth in the morning and 1 tablet in the evening. [facility] atorvastati n 40 mg tablet 3-0 2-13 00:00: 00 Yes [id number] 40mg Take 1 tablet by mouth at bedtime. [facility] spironolact one 25 mg tablet 2022-0 2-13 00:00: 00 Yes 12.5mg Take 0.5 tablets by mouth in the morning. [facility] metoprolol tartrate 50 mg tablet 2022-0 2-13 00:00: 00 Yes [id number] 50mg Take 1 tablet by mouth in the morning and 1 tablet in the evening. [facility] atorvastati n 40 mg tablet 2022-0 2-13 00:00: 00 Yes [id number] 40mg Take 1 tablet by mouth at bedtime. [facility] spironolact one 25 mg tablet 2022-0 2-13 00:00: 00 Yes 12.5mg Take 0.5 tablets by mouth in the morning. [facility] metoprolol tartrate 50 mg tablet 2022-0 2-13 00:00: 00 Yes [id number] 50mg Take 1 tablet by mouth in the morning and 1 tablet in the evening. [facility] atorvastati n 40 mg tablet 2022-0 2-13 00:00: 00 Yes [id number] 40mg Take 1 tablet by mouth at bedtime. [facility] spironolact one 25 mg tablet 2022-0 2-13 00:00: 00 Yes 12.5mg Take 0.5 tablets by mouth in the morning. [facility] metoprolol tartrate 50 mg tablet 3-0 2-13 00:00: 00 Yes [id number] 50mg Take 1 tablet by mouth in the morning and 1 tablet in the evening. [facility] atorvastati n 40 mg tablet 3-0 2-13 00:00: 00 Yes [id number] 40mg Take 1 tablet by mouth at bedtime. [facility] spironolact one 25 mg tablet 3-0 2-13 00:00: 00 Yes 12.5mg Take 0.5 tablets by mouth in the morning. [facility] metoprolol tartrate 50 mg tablet 2022-0 2-13 00:00: 00 Yes [id number] 50mg Take 1 tablet by mouth in the morning and 1 tablet in the evening. [facility] atorvastati n 40 mg tablet 2022-0 2-13 00:00: 00 Yes [id number] 40mg Take 1 tablet by mouth at bedtime. [facility] spironolact one 25 mg tablet 2022-0 13 00:00: 00 Yes 12.5mg Take 0.5 tablets by mouth in the morning. [facility] metoprolol tartrate 50 mg tablet 2022-0 09-05 00:00: 00 Yes [id number] 50mg Take 1 tablet by mouth in the morning and 1 tablet in the evening. [facility] atorvastati n 40 mg tablet 2022-0 13 00:00: 00 Yes [id number] 40mg Take 1 tablet by mouth at bedtime. [facility] spironolact one 25 mg tablet 2022-0 13 00:00: 00 Yes 12.5mg Take 0.5 tablets by mouth in the morning. [facility] metoprolol tartrate 50 mg tablet 2022-0 09-05 00:00: 00 Yes [id number] 50mg Take 1 tablet by mouth in the morning and 1 tablet in the evening. [facility] atorvastati n 40 mg tablet 2022-0 -13 00:00: 00 Yes [id number] 40mg Take 1 tablet by mouth at bedtime. [facility] spironolact one 25 mg tablet 2022-0 13 00:00: 00 Yes 12.5mg Take 0.5 tablets by mouth in the morning. [facility] metoprolol tartrate 50 mg tablet 2022-0 -13 00:00: 00 Yes [id number] 50mg Take 1 tablet by mouth in the morning and 1 tablet in the evening. [facility] atorvastati n 40 mg tablet 2022-0 2-13 00:00: 00 Yes [id number] 40mg Take 1 tablet by mouth at bedtime. [facility] atorvastati n 40 mg tablet 2022-0 2-13 00:00: 00 Yes [id number] 40mg Take 1 tablet by mouth at bedtime. [facility] atorvastati n 40 mg tablet 2022-0 2-13 00:00: 00 Yes [id number] 40mg Take 1 tablet by mouth at bedtime. [facility] atorvastati n 40 mg tablet 2022-0 2-13 00:00: 00 Yes [id number] 40mg Take 1 tablet by mouth at bedtime. [facility] atorvastati n 40 mg tablet 2022-0 2-13 00:00: 00 Yes [id number] 40mg Take 1 tablet by mouth at bedtime. [facility] atorvastati n 40 mg tablet 2022-0 2-13 00:00: 00 Yes [id number] 40mg Take 1 tablet by mouth at bedtime. [facility] atorvastati n 40 mg tablet 0 2-13 00:00: 00 09-01 00:00 :00 No [id number] 40mg Take 1 tablet by mouth at bedtime. [facility] spironolact one 25 mg tablet 0 2-13 00:00: 00 06-08 00:00 :00 No 12.5mg Take 0.5 tablets by mouth in the morning. [facility] metoprolol tartrate 50 mg tablet 0 2-13 00:00: 00 06-08 00:00 :00 No [id number] 50mg Take 1 tablet by mouth in the morning and 1 tablet in the evening. [facility] spironolact one 25 mg tablet 2022-0 2-13 00:00: 00 06-08 00:00 :00 No 12.5mg Take 0.5 tablets by mouth in the morning. [facility] metoprolol tartrate 50 mg tablet 2022-0 2-13 00:00: 00 06-08 00:00 :00 No [id number] 50mg Take 1 tablet by mouth in the morning and 1 tablet in the evening. [facility] spironolact one 25 mg tablet 2- 00:00: 00 06-08 00:00 :00 No 12.5mg Take 0.5 tablets by mouth in the morning. [facility] metoprolol tartrate 50 mg tablet 2- 00:00: 00 06-08 00:00 :00 No [id number] 50mg Take 1 tablet by mouth in the morning and 1 tablet in the evening. [facility] Trospium Chloride 20 MG Trospium Chloride 20 MG - 00:00: 00 10-26 00:00 :00 No 1{table t_at_be dtime_o n_an_em pty_sto mach} QD Trospium Chloride 20 MG furosemide 20 mg tablet 2021-07 00:00: 00 Yes [id number] 20mg Take 1 tablet by mouth in the morning. [facility] furosemide 20 mg tablet 2021-07 00:00: 00 Yes [id number] 20mg Take 1 tablet by mouth in the morning. [facility] furosemide 20 mg tablet 2021-07 00:00: 00 Yes [id number] 20mg Take 1 tablet by mouth in the morning. [facility] furosemide 20 mg tablet 2021-07- 00:00: 00 Yes [id number] 20mg Take 1 tablet by mouth in the morning. [facility] furosemide 20 mg tablet 2021-07- 00:00: 00 Yes [id number] 20mg Take 1 tablet by mouth in the morning. [facility] furosemide 20 mg tablet 2021-07 00:00: 00 Yes [id number] 20mg Take 1 tablet by mouth in the morning. [facility] furosemide 20 mg tablet 2021-07- 00:00: 00 Yes [id number] [id number] 20mg Take 1 tablet by mouth in the morning. [facility] furosemide 20 mg tablet 2021-07 2- 00:00: 00 Yes [id number] 20mg Take 1 tablet by mouth in the morning. [facility] furosemide 20 mg tablet 2021-07 00:00: 00 Yes [id number] 20mg Take 1 tablet by mouth in the morning. [facility] furosemide 20 mg tablet 2021-07 00:00: 00 Yes [id number] 20mg Take 1 tablet by mouth in the morning. [facility] furosemide 20 mg tablet 2021-07 00:00: 00 Yes [id number] [id number] 20mg Take 1 tablet by mouth in the morning. [facility] furosemide 20 mg tablet 2021-07 00:00: 00 Yes [id number] 20mg Take 1 tablet by mouth in the morning. [facility] furosemide 20 mg tablet 2021-07 00:00: 00 Yes [id number] 20mg Take 1 tablet by mouth in the morning. [facility] furosemide 20 mg tablet 2021-07 00:00: 00 Yes [id number] [id number] 20mg Take 1 tablet by mouth in the morning. [facility] furosemide 20 mg tablet 2021-07 00:00: 00 Yes [id number] 20mg Take 1 tablet by mouth in the morning. [facility] furosemide 20 mg tablet 2021-07 00:00: 00 Yes [id number] 20mg Take 1 tablet by mouth in the morning. [facility] furosemide 20 mg tablet 2021-07 00:00: 00 Yes [id number] 20mg Take 1 tablet by mouth in the morning. [facility] furosemide 20 mg tablet 2021-07 00:00: 00 Yes [id number] [id number] 20mg Take 1 tablet by mouth in the morning. [facility] furosemide 20 mg tablet 2021-07 00:00: 00 Yes [id number] 20mg Take 1 tablet by mouth in the morning. [facility] furosemide 20 mg tablet 2021-07 00:00: 00 Yes [id number] 20mg Take 1 tablet by mouth in the morning. [facility] furosemide 20 mg tablet 2021-07 00:00: 00 Yes [id number] 20mg Take 1 tablet by mouth in the morning. [facility] furosemide 20 mg tablet 2021-07 00:00: 00 Yes [id number] 20mg Take 1 tablet by mouth in the morning. [facility] furosemide 20 mg tablet 2021-07 00:00: 00 Yes [id number] 20mg Take 1 tablet by mouth in the morning. [facility] furosemide 20 mg tablet 2021-07 00:00: 00 Yes [id number] 20mg Take 1 tablet by mouth in the morning. [facility] furosemide 20 mg tablet 2021-07 00:00: 00 Yes [id number] 20mg Take 1 tablet by mouth in the morning. [facility] furosemide 20 mg tablet 2021-07 00:00: 00 Yes [id number] 20mg Take 1 tablet by mouth in the morning. [facility] furosemide 20 mg tablet 2021-07 00:00: 00 Yes [id number] 20mg Take 1 tablet by mouth in the morning. [facility] furosemide 20 mg tablet 2021-07 00:00: 00 Yes [id number] 20mg Take 1 tablet by mouth in the morning. [facility] furosemide 20 mg tablet 2021-07 00:00: 00 Yes [id number] 20mg Take 1 tablet by mouth in the morning. [facility] furosemide 20 mg tablet 2021-07 00:00: 00 Yes [id number] 20mg Take 1 tablet by mouth in the morning. [facility] furosemide 20 mg tablet 2021-07 00:00: 00 Yes [id number] 20mg Take 1 tablet by mouth in the morning. [facility] furosemide 20 mg tablet 2021-07 00:00: 00 Yes [id number] 20mg Take 1 tablet by mouth in the morning. [facility] furosemide 20 mg tablet 2021-07 2- 00:00: 00 Yes [id number] 20mg Take 1 tablet by mouth in the morning. [facility] furosemide 20 mg tablet 2021-07 00:00: 00 Yes [id number] 20mg Take 1 tablet by mouth in the morning. [facility] furosemide 20 mg tablet 2021-07 00:00: 00 Yes [id number] 20mg Take 1 tablet by mouth in the morning. [facility] furosemide 20 mg tablet 2021-07 00:00: 00 Yes [id number] 20mg Take 1 tablet by mouth in the morning. [facility] furosemide 20 mg tablet 2021-07 00:00: 00 Yes [id number] 20mg Take 1 tablet by mouth in the morning. [facility] furosemide 20 mg tablet 2021-07 00:00: 00 Yes [id number] 20mg Take 1 tablet by mouth in the morning. [facility] furosemide 20 mg tablet 2021-07 00:00: 00 Yes [id number] 20mg Take 1 tablet by mouth in the morning. [facility] furosemide 20 mg tablet 2021-07 00:00: 00 Yes [id number] 20mg Take 1 tablet by mouth in the morning. [facility] furosemide 20 mg tablet 2021-07- 00:00: 00 Yes [id number] 20mg Take 1 tablet by mouth in the morning. [facility] furosemide 20 mg tablet 2021-07 00:00: 00 Yes [id number] 20mg Take 1 tablet by mouth in the morning. [facility] furosemide 20 mg tablet 2021-07 00:00: 00 Yes [id number] 20mg Take 1 tablet by mouth in the morning. [facility] furosemide 20 mg tablet 2021-07- 00:00: 00 Yes [id number] 20mg Take 1 tablet by mouth in the morning. [facility] furosemide 20 mg tablet 2021-07 2- 00:00: 00 Yes [id number] 20mg Take 1 tablet by mouth in the morning. [facility] furosemide 20 mg tablet 2021-07- 00:00: 00 Yes [id number] 20mg Take 1 tablet by mouth in the morning. [facility] furosemide 20 mg tablet 2021-07 00:00: 00 Yes [id number] 20mg Take 1 tablet by mouth in the morning. [facility] furosemide 20 mg tablet 2021-07 00:00: 00 Yes [id number] 20mg Take 1 tablet by mouth in the morning. [facility] furosemide 20 mg tablet 2021-07 00:00: 00 Yes [id number] 20mg Take 1 tablet by mouth in the morning. [facility] furosemide 20 mg tablet 2021-07 00:00: 00 09-05 00:00 :00 No [id number] 20mg Take 1 tablet by mouth in the morning. [facility] furosemide 20 mg tablet 2021-07 00:00: 00 09-05 00:00 :00 No [id number] 20mg Take 1 tablet by mouth in the morning. [facility] Kenalog (Triamcinol one) Kenalog (Triamcinol one) 2021-07 0-18 00:00: 00 No 40mg [facility] [place] B[facility] [place] 2021-07 0-18 00:00: 00 No 2.5mg [facility] Kenalog (Triamcinol one) Kenalog (Triamcinol one) 2021-07 0-18 00:00: 00 No 40mg [facility] [place] B[facility] [place] 2021-07 0-18 00:00: 00 No 2.5mg [facility] Kenalog (Triamcinol one) Kenalog (Triamcinol one) 2021-07 0-18 00:00: 00 No 40mg [facility] [place] [facility] [place] 2021-07 0-18 00:00: 00 No 2.5mg [facility] Kenalog (Triamcinol one) Kenalog (Triamcinol one) 2021-07 0-18 00:00: 00 No 40mg [facility] [place] B[facility] [place] 2021-07 0-18 00:00: 00 No 2.5mg [facility] Kenalog (Triamcinol one) Kenalog (Triamcinol one) 2021-07 0-18 00:00: 00 No 40mg [facility] [place] B[facility] [place] 2021-07 0-18 00:00: 00 No 2.5mg [facility] Kenalog (Triamcinol one) Kenalog (Triamcinol one) 2021-07 0-18 00:00: 00 No 40mg [facility] [place] [facility] [place] 2021-07 0-18 00:00: 00 No 2.5mg [facility] Kenalog (Triamcinol one) Kenalog (Triamcinol one) 2021-07 0-18 00:00: 00 No 40mg [facility] [place] [facility] [place] 2021-07 0-18 00:00: 00 No 2.5mg [facility] Kenalog (Triamcinol one) Kenalog (Triamcinol one) 2021-07 0-18 00:00: 00 No 40mg [facility] [place] [facility] [place] 2021-07 0-18 00:00: 00 No 2.5mg [facility] Kenalog (Triamcinol one) Kenalog (Triamcinol one) 2021-07 0-18 00:00: 00 No 40mg [facility] [place] [facility] [place] 2021-07 0-18 00:00: 00 No 2.5mg [facility] Kenalog (Triamcinol one) Kenalog (Triamcinol one) 2021-07 0-18 00:00: 00 No 40mg [facility] [place] [facility] [place] 2021-07 0-18 00:00: 00 No 2.5mg [facility] Kenalog (Triamcinol one) Kenalog (Triamcinol one) 2021-07 0-18 00:00: 00 No 40mg [facility] [place] B[facility] [place] 2021-07 0-18 00:00: 00 No 2.5mg [facility] Kenalog (Triamcinol one) Kenalog (Triamcinol one) 2021-07 0-18 00:00: 00 No 40mg [facility] [place] [facility] [place] 2021-07 0-18 00:00: 00 No 2.5mg [facility] Kenalog (Triamcinol one) Kenalog (Triamcinol one) 2021-07 0-18 00:00: 00 No 40mg [facility] [place] [facility] [place] 2021-07 0-18 00:00: 00 No 2.5mg [facility] Kenalog (Triamcinol one) Kenalog (Triamcinol one) 2021-07 0-18 00:00: 00 No 40mg [facility] [place] [facility] [place] 2021-07 0-18 00:00: 00 No 2.5mg [facility] Kenalog (Triamcinol one) Kenalog (Triamcinol one) 2021-07 0-18 00:00: 00 No 40mg [facility] [place] [facility] [place] 2021-07 0-18 00:00: 00 No 2.5mg [facility] Kenalog (Triamcinol one) Kenalog (Triamcinol one) 2021-07 0-18 00:00: 00 No 40mg [facility] [place] [facility] [place] 2021-07 0-18 00:00: 00 No 2.5mg [facility] Kenalog (Triamcinol one) Kenalog (Triamcinol one) 2021-07 0-18 00:00: 00 No 40[facility] [place] [facility] [place] 2021-07 018 00:00: 00 No 2.5mg [facility] Kenalog (Triamcinol one) Kenalog (Triamcinol one) 2021-07 0-18 00:00: 00 No 40mg [facility] [place] B[facility] [place] 2021-07 0-18 00:00: 00 No 2.5mg [facility] Kenalog (Triamcinol one) Kenalog (Triamcinol one) 2021-07 0-18 00:00: 00 No 40mg [facility] [place] [facility] [place] 2021-07 0-18 00:00: 00 No 2.5mg [facility] Kenalog (Triamcinol one) Kenalog (Triamcinol one) 2021-07 0-18 00:00: 00 No 40mg [facility] [place] [facility] [place] 2021-07 018 00:00: 00 No 2.5mg [facility] coenzyme Q10 100 mg softgel 03-17 10:56: 39 Yes 100mg Take 100 mg by mouth 2 (two) times daily. [facility] Cholecalcif candido, Vitamin D3, 125 mcg (5,000 unit) tablet 03-17 10:56: 39 Yes 1{tbl} Take 1 tablet by mouth daily. [facility] solifenacin 5 mg tablet 03-17 10:56: 39 Yes 5mg Take 5 mg by mouth daily. [facility] magnesium oxide 400 mg magnesium Tab 03-17 10:56: 39 Yes 1{tbl} Take 1 tablet by mouth daily. [facility] coenzyme Q10 100 mg softgel 03-17 10:56: 39 Yes 100mg Take 100 mg by mouth 2 (two) times daily. [facility] Cholecalcif candido, Vitamin D3, 125 mcg (5,000 unit) tablet 03-17 10:56: 39 Yes 1{tbl} Take 1 tablet by mouth daily. [facility] solifenacin 5 mg tablet 03-17 10:56: 39 Yes 5mg Take 5 mg by mouth daily. [facility] magnesium oxide 400 mg magnesium Tab 03-17 10:56: 39 Yes 1{tbl} Take 1 tablet by mouth daily. [facility] coenzyme Q10 100 mg softgel 03-17 10:56: 39 Yes 100mg Take 100 mg by mouth 2 (two) times daily. [facility] Cholecalcif candido, Vitamin D3, 125 mcg (5,000 unit) tablet 03-17 10:56: 39 Yes 1{tbl} Take 1 tablet by mouth daily. [facility] solifenacin 5 mg tablet 03-17 10:56: 39 Yes 5mg Take 5 mg by mouth daily. [facility] magnesium oxide 400 mg magnesium Tab 03-17 10:56: 39 Yes 1{tbl} Take 1 tablet by mouth daily. [facility] coenzyme Q10 100 mg softgel 03-17 10:56: 39 Yes 100mg Take 100 mg by mouth 2 (two) times daily. [facility] Cholecalcif candido, Vitamin D3, 125 mcg (5,000 unit) tablet 03-17 10:56: 39 Yes 1{tbl} Take 1 tablet by mouth daily. [facility] solifenacin 5 mg tablet 03-17 10:56: 39 Yes 5mg Take 5 mg by mouth daily. [facility] magnesium oxide 400 mg magnesium Tab 03-17 10:56: 39 Yes 1{tbl} Take 1 tablet by mouth daily. [facility] coenzyme Q10 100 mg softgel 03-17 10:56: 39 Yes 100mg Take 100 mg by mouth 2 (two) times daily. [facility] Cholecalcif candido, Vitamin D3, 125 mcg (5,000 unit) tablet 03-17 10:56: 39 Yes 1{tbl} Take 1 tablet by mouth daily. [facility] solifenacin 5 mg tablet 03-17 10:56: 39 Yes 5mg Take 5 mg by mouth daily. [facility] magnesium oxide 400 mg magnesium Tab 03-17 10:56: 39 Yes 1{tbl} Take 1 tablet by mouth daily. [facility] coenzyme Q10 100 mg softgel 03-17 10:56: 39 Yes 100mg Take 100 mg by mouth 2 (two) times daily. [facility] Cholecalcif candido, Vitamin D3, 125 mcg (5,000 unit) tablet 03-17 10:56: 39 Yes 1{tbl} Take 1 tablet by mouth daily. [facility] solifenacin 5 mg tablet 03-17 10:56: 39 Yes 5mg Take 5 mg by mouth daily. [facility] magnesium oxide 400 mg magnesium Tab 03-17 10:56: 39 Yes 1{tbl} Take 1 tablet by mouth daily. [facility] coenzyme Q10 100 mg softgel 03-17 10:56: 39 Yes 100mg Take 100 mg by mouth 2 (two) times daily. [facility] Cholecalcif candido, Vitamin D3, 125 mcg (5,000 unit) tablet 03-17 10:56: 39 Yes 1{tbl} Take 1 tablet by mouth daily. [facility] solifenacin 5 mg tablet 03-17 10:56: 39 Yes 5mg Take 5 mg by mouth daily. [facility] magnesium oxide 400 mg magnesium Tab 03-17 10:56: 39 Yes 1{tbl} Take 1 tablet by mouth daily. [facility] coenzyme Q10 100 mg softgel 03-17 10:56: 39 Yes 100mg Take 100 mg by mouth 2 (two) times daily. [facility] Cholecalcif candido, Vitamin D3, 125 mcg (5,000 unit) tablet 03-17 10:56: 39 Yes 1{tbl} Take 1 tablet by mouth daily. [facility] solifenacin 5 mg tablet 03-17 10:56: 39 Yes 5mg Take 5 mg by mouth daily. [facility] magnesium oxide 400 mg magnesium Tab 03-17 10:56: 39 Yes 1{tbl} Take 1 tablet by mouth daily. [facility] coenzyme Q10 100 mg softgel 03-17 10:56: 39 Yes 100mg Take 100 mg by mouth 2 (two) times daily. [facility] Cholecalcif candido, Vitamin D3, 125 mcg (5,000 unit) tablet 03-17 10:56: 39 Yes 1{tbl} Take 1 tablet by mouth daily. [facility] solifenacin 5 mg tablet 03-17 10:56: 39 Yes 5mg Take 5 mg by mouth daily. [facility] magnesium oxide 400 mg magnesium Tab 03-17 10:56: 39 Yes 1{tbl} Take 1 tablet by mouth daily. [facility] coenzyme Q10 100 mg softgel 03-17 10:56: 39 Yes 100mg Take 100 mg by mouth 2 (two) times daily. [facility] Cholecalcif candido, Vitamin D3, 125 mcg (5,000 unit) tablet 03-17 10:56: 39 Yes 1{tbl} Take 1 tablet by mouth daily. [facility] solifenacin 5 mg tablet 03-17 10:56: 39 Yes 5mg Take 5 mg by mouth daily. [facility] magnesium oxide 400 mg magnesium Tab 03-17 10:56: 39 Yes 1{tbl} Take 1 tablet by mouth daily. [facility] coenzyme Q10 100 mg softgel 03-17 10:56: 39 Yes 100mg Take 100 mg by mouth 2 (two) times daily. [facility] Cholecalcif candido, Vitamin D3, 125 mcg (5,000 unit) tablet 03-17 10:56: 39 Yes 1{tbl} Take 1 tablet by mouth daily. [facility] solifenacin 5 mg tablet 03-17 10:56: 39 Yes 5mg Take 5 mg by mouth daily. [facility] magnesium oxide 400 mg magnesium Tab 03-17 10:56: 39 Yes 1{tbl} Take 1 tablet by mouth daily. [facility] coenzyme Q10 100 mg softgel 03-17 10:56: 39 Yes 100mg Take 100 mg by mouth 2 (two) times daily. [facility] Cholecalcif candido, Vitamin D3, 125 mcg (5,000 unit) tablet 03-17 10:56: 39 Yes 1{tbl} Take 1 tablet by mouth daily. [facility] solifenacin 5 mg tablet 03-17 10:56: 39 Yes 5mg Take 5 mg by mouth daily. [facility] magnesium oxide 400 mg magnesium Tab 03-17 10:56: 39 Yes 1{tbl} Take 1 tablet by mouth daily. [facility] coenzyme Q10 100 mg softgel 03-17 10:56: 39 Yes 100mg Take 100 mg by mouth 2 (two) times daily. [facility] Cholecalcif candido, Vitamin D3, 125 mcg (5,000 unit) tablet 03-17 10:56: 39 Yes 1{tbl} Take 1 tablet by mouth daily. [facility] solifenacin 5 mg tablet 03-17 10:56: 39 Yes 5mg Take 5 mg by mouth daily. [facility] magnesium oxide 400 mg magnesium Tab 03-17 10:56: 39 Yes 1{tbl} Take 1 tablet by mouth daily. [facility] coenzyme Q10 100 mg softgel 03-17 10:56: 39 Yes 100mg Take 100 mg by mouth 2 (two) times daily. [facility] Cholecalcif candido, Vitamin D3, 125 mcg (5,000 unit) tablet 03-17 10:56: 39 Yes 1{tbl} Take 1 tablet by mouth daily. [facility] solifenacin 5 mg tablet 03-17 10:56: 39 Yes 5mg Take 5 mg by mouth daily. [facility] magnesium oxide 400 mg magnesium Tab 03-17 10:56: 39 Yes 1{tbl} Take 1 tablet by mouth daily. [facility] coenzyme Q10 100 mg softgel 03-17 10:56: 39 Yes 100mg Take 100 mg by mouth 2 (two) times daily. [facility] Cholecalcif candido, Vitamin D3, 125 mcg (5,000 unit) tablet 03-17 10:56: 39 Yes 1{tbl} Take 1 tablet by mouth daily. [facility] solifenacin 5 mg tablet 03-17 10:56: 39 Yes 5mg Take 5 mg by mouth daily. [facility] magnesium oxide 400 mg magnesium Tab 03-17 10:56: 39 Yes 1{tbl} Take 1 tablet by mouth daily. [facility] coenzyme Q10 100 mg softgel 03-17 10:56: 39 Yes 100mg Take 100 mg by mouth 2 (two) times daily. [facility] Cholecalcif candido, Vitamin D3, 125 mcg (5,000 unit) tablet 03-17 10:56: 39 Yes 1{tbl} Take 1 tablet by mouth daily. [facility] solifenacin 5 mg tablet 03-17 10:56: 39 Yes 5mg Take 5 mg by mouth daily. [facility] magnesium oxide 400 mg magnesium Tab 03-17 10:56: 39 Yes 1{tbl} Take 1 tablet by mouth daily. [facility] coenzyme Q10 100 mg softgel 03-17 10:56: 39 Yes 100mg Take 100 mg by mouth 2 (two) times daily. [facility] Cholecalcif candido, Vitamin D3, 125 mcg (5,000 unit) tablet 03-17 10:56: 39 Yes 1{tbl} Take 1 tablet by mouth daily. [facility] solifenacin 5 mg tablet 03-17 10:56: 39 Yes 5mg Take 5 mg by mouth daily. [facility] magnesium oxide 400 mg magnesium Tab 03-17 10:56: 39 Yes 1{tbl} Take 1 tablet by mouth daily. [facility] coenzyme Q10 100 mg softgel 03-17 10:56: 39 Yes 100mg Take 100 mg by mouth 2 (two) times daily. [facility] Cholecalcif candido, Vitamin D3, 125 mcg (5,000 unit) tablet 03-17 10:56: 39 Yes 1{tbl} Take 1 tablet by mouth daily. [facility] solifenacin 5 mg tablet 03-17 10:56: 39 Yes 5mg Take 5 mg by mouth daily. [facility] magnesium oxide 400 mg magnesium Tab 03-17 10:56: 39 Yes 1{tbl} Take 1 tablet by mouth daily. [facility] coenzyme Q10 100 mg softgel 03-17 10:56: 39 Yes 100mg Take 100 mg by mouth 2 (two) times daily. [facility] Cholecalcif candido, Vitamin D3, 125 mcg (5,000 unit) tablet 03-17 10:56: 39 Yes 1{tbl} Take 1 tablet by mouth daily. [facility] solifenacin 5 mg tablet 03-17 10:56: 39 Yes 5mg Take 5 mg by mouth daily. [facility] magnesium oxide 400 mg magnesium Tab 03-17 10:56: 39 Yes 1{tbl} Take 1 tablet by mouth daily. [facility] coenzyme Q10 100 mg softgel 03-17 10:56: 39 Yes 100mg Take 100 mg by mouth 2 (two) times daily. [facility] Cholecalcif candido, Vitamin D3, 125 mcg (5,000 unit) tablet 03-17 10:56: 39 Yes 1{tbl} Take 1 tablet by mouth daily. [facility] solifenacin 5 mg tablet 03-17 10:56: 39 Yes 5mg Take 5 mg by mouth daily. [facility] magnesium oxide 400 mg magnesium Tab 03-17 10:56: 39 Yes 1{tbl} Take 1 tablet by mouth daily. [facility] coenzyme Q10 100 mg softgel 03-17 10:56: 39 Yes 100mg Take 100 mg by mouth 2 (two) times daily. [facility] Cholecalcif candido, Vitamin D3, 125 mcg (5,000 unit) tablet 03-17 10:56: 39 Yes 1{tbl} Take 1 tablet by mouth daily. [facility] solifenacin 5 mg tablet 03-17 10:56: 39 Yes 5mg Take 5 mg by mouth daily. [facility] magnesium oxide 400 mg magnesium Tab 03-17 10:56: 39 Yes 1{tbl} Take 1 tablet by mouth daily. [facility] coenzyme Q10 100 mg softgel 03-17 10:56: 39 Yes 100mg Take 100 mg by mouth 2 (two) times daily. [facility] Cholecalcif candido, Vitamin D3, 125 mcg (5,000 unit) tablet 03-17 10:56: 39 Yes 1{tbl} Take 1 tablet by mouth daily. [facility] solifenacin 5 mg tablet 03-17 10:56: 39 Yes 5mg Take 5 mg by mouth daily. [facility] magnesium oxide 400 mg magnesium Tab 03-17 10:56: 39 Yes 1{tbl} Take 1 tablet by mouth daily. [facility] coenzyme Q10 100 mg softgel 03-17 10:56: 39 Yes 100mg Take 100 mg by mouth 2 (two) times daily. [facility] Cholecalcif candido, Vitamin D3, 125 mcg (5,000 unit) tablet 03-17 10:56: 39 Yes 1{tbl} Take 1 tablet by mouth daily. [facility] solifenacin 5 mg tablet 03-17 10:56: 39 Yes 5mg Take 5 mg by mouth daily. [facility] magnesium oxide 400 mg magnesium Tab 03-17 10:56: 39 Yes 1{tbl} Take 1 tablet by mouth daily. [facility] coenzyme Q10 100 mg softgel 03-17 10:56: 39 Yes 100mg Take 100 mg by mouth 2 (two) times daily. [facility] Cholecalcif candido, Vitamin D3, 125 mcg (5,000 unit) tablet 03-17 10:56: 39 Yes 1{tbl} Take 1 tablet by mouth daily. [facility] solifenacin 5 mg tablet 03-17 10:56: 39 Yes 5mg Take 5 mg by mouth daily. [facility] magnesium oxide 400 mg magnesium Tab 03-17 10:56: 39 Yes 1{tbl} Take 1 tablet by mouth daily. [facility] coenzyme Q10 100 mg softgel 03-17 10:56: 39 Yes 100mg Take 100 mg by mouth 2 (two) times daily. [facility] Cholecalcif candido, Vitamin D3, 125 mcg (5,000 unit) tablet 03-17 10:56: 39 Yes 1{tbl} Take 1 tablet by mouth daily. [facility] solifenacin 5 mg tablet 03-17 10:56: 39 Yes 5mg Take 5 mg by mouth daily. [facility] magnesium oxide 400 mg magnesium Tab 03-17 10:56: 39 Yes 1{tbl} Take 1 tablet by mouth daily. [facility] coenzyme Q10 100 mg softgel 03-17 10:56: 39 Yes 100mg Take 100 mg by mouth 2 (two) times daily. [facility] Cholecalcif candido, Vitamin D3, 125 mcg (5,000 unit) tablet 03-17 10:56: 39 Yes 1{tbl} Take 1 tablet by mouth daily. [facility] solifenacin 5 mg tablet 03-17 10:56: 39 Yes 5mg Take 5 mg by mouth daily. [facility] magnesium oxide 400 mg magnesium Tab 03-17 10:56: 39 Yes 1{tbl} Take 1 tablet by mouth daily. [facility] coenzyme Q10 100 mg softgel 03-17 10:56: 39 Yes 100mg Take 100 mg by mouth 2 (two) times daily. [facility] Cholecalcif candido, Vitamin D3, 125 mcg (5,000 unit) tablet 03-17 10:56: 39 Yes 1{tbl} Take 1 tablet by mouth daily. [facility] solifenacin 5 mg tablet 03-17 10:56: 39 Yes 5mg Take 5 mg by mouth daily. [facility] magnesium oxide 400 mg magnesium Tab 03-17 10:56: 39 Yes 1{tbl} Take 1 tablet by mouth daily. [facility] coenzyme Q10 100 mg softgel 03-17 10:56: 39 Yes 100mg Take 100 mg by mouth 2 (two) times daily. [facility] Cholecalcif candido, Vitamin D3, 125 mcg (5,000 unit) tablet 03-17 10:56: 39 Yes 1{tbl} Take 1 tablet by mouth daily. [facility] solifenacin 5 mg tablet 03-17 10:56: 39 Yes 5mg Take 5 mg by mouth daily. [facility] magnesium oxide 400 mg magnesium Tab 03-17 10:56: 39 Yes 1{tbl} Take 1 tablet by mouth daily. [facility] coenzyme Q10 100 mg softgel 03-17 10:56: 39 Yes 100mg Take 100 mg by mouth 2 (two) times daily. [facility] Cholecalcif candido, Vitamin D3, 125 mcg (5,000 unit) tablet 03-17 10:56: 39 Yes 1{tbl} Take 1 tablet by mouth daily. [facility] solifenacin 5 mg tablet 03-17 10:56: 39 Yes 5mg Take 5 mg by mouth daily. [facility] magnesium oxide 400 mg magnesium Tab 03-17 10:56: 39 Yes 1{tbl} Take 1 tablet by mouth daily. [facility] coenzyme Q10 100 mg softgel 03-17 10:56: 39 Yes 100mg Take 100 mg by mouth 2 (two) times daily. [facility] Cholecalcif candido, Vitamin D3, 125 mcg (5,000 unit) tablet 03-17 10:56: 39 Yes 1{tbl} Take 1 tablet by mouth daily. [facility] solifenacin 5 mg tablet 03-17 10:56: 39 Yes 5mg Take 5 mg by mouth daily. [facility] magnesium oxide 400 mg magnesium Tab 03-17 10:56: 39 Yes 1{tbl} Take 1 tablet by mouth daily. [facility] coenzyme Q10 100 mg softgel 03-17 10:56: 39 Yes 100mg Take 100 mg by mouth 2 (two) times daily. [facility] Cholecalcif candido, Vitamin D3, 125 mcg (5,000 unit) tablet 03-17 10:56: 39 Yes 1{tbl} Take 1 tablet by mouth daily. [facility] solifenacin 5 mg tablet 03-17 10:56: 39 Yes 5mg Take 5 mg by mouth daily. [facility] magnesium oxide 400 mg magnesium Tab 03-17 10:56: 39 Yes 1{tbl} Take 1 tablet by mouth daily. [facility] coenzyme Q10 100 mg softgel 03-17 10:56: 39 Yes 100mg Take 100 mg by mouth 2 (two) times daily. [facility] Cholecalcif candido, Vitamin D3, 125 mcg (5,000 unit) tablet 03-17 10:56: 39 Yes 1{tbl} Take 1 tablet by mouth daily. [facility] solifenacin 5 mg tablet 03-17 10:56: 39 Yes 5mg Take 5 mg by mouth daily. [facility] magnesium oxide 400 mg magnesium Tab 03-17 10:56: 39 Yes 1{tbl} Take 1 tablet by mouth daily. [facility] coenzyme Q10 100 mg softgel 03-17 10:56: 39 Yes 100mg Take 100 mg by mouth 2 (two) times daily. [facility] Cholecalcif candido, Vitamin D3, 125 mcg (5,000 unit) tablet 03-17 10:56: 39 Yes 1{tbl} Take 1 tablet by mouth daily. [facility] solifenacin 5 mg tablet 03-17 10:56: 39 Yes 5mg Take 5 mg by mouth daily. [facility] magnesium oxide 400 mg magnesium Tab 03-17 10:56: 39 Yes 1{tbl} Take 1 tablet by mouth daily. [facility] coenzyme Q10 100 mg softgel 03-17 10:56: 39 Yes 100mg Take 100 mg by mouth 2 (two) times daily. [facility] Cholecalcif candido, Vitamin D3, 125 mcg (5,000 unit) tablet 03-17 10:56: 39 Yes 1{tbl} Take 1 tablet by mouth daily. [facility] solifenacin 5 mg tablet 03-17 10:56: 39 Yes 5mg Take 5 mg by mouth daily. [facility] magnesium oxide 400 mg magnesium Tab 03-17 10:56: 39 Yes 1{tbl} Take 1 tablet by mouth daily. [facility] coenzyme Q10 100 mg softgel 03-17 10:56: 39 Yes 100mg Take 100 mg by mouth 2 (two) times daily. [facility] Cholecalcif candido, Vitamin D3, 125 mcg (5,000 unit) tablet 03-17 10:56: 39 Yes 1{tbl} Take 1 tablet by mouth daily. [facility] solifenacin 5 mg tablet 03-17 10:56: 39 Yes 5mg Take 5 mg by mouth daily. [facility] magnesium oxide 400 mg magnesium Tab 03-17 10:56: 39 Yes 1{tbl} Take 1 tablet by mouth daily. [facility] coenzyme Q10 100 mg softgel 03-17 10:56: 39 Yes 100mg Take 100 mg by mouth 2 (two) times daily. [facility] Cholecalcif candido, Vitamin D3, 125 mcg (5,000 unit) tablet 03-17 10:56: 39 Yes 1{tbl} Take 1 tablet by mouth daily. [facility] solifenacin 5 mg tablet 03-17 10:56: 39 Yes 5mg Take 5 mg by mouth daily. [facility] magnesium oxide 400 mg magnesium Tab 03-17 10:56: 39 Yes 1{tbl} Take 1 tablet by mouth daily. [facility] coenzyme Q10 100 mg softgel 03-17 10:56: 39 Yes 100mg Take 100 mg by mouth 2 (two) times daily. [facility] Cholecalcif candido, Vitamin D3, 125 mcg (5,000 unit) tablet 03-17 10:56: 39 Yes 1{tbl} Take 1 tablet by mouth daily. [facility] solifenacin 5 mg tablet 03-17 10:56: 39 Yes 5mg Take 5 mg by mouth daily. [facility] magnesium oxide 400 mg magnesium Tab 03-17 10:56: 39 Yes 1{tbl} Take 1 tablet by mouth daily. [facility] coenzyme Q10 100 mg softgel 03-17 10:56: 39 Yes 100mg Take 100 mg by mouth 2 (two) times daily. [facility] Cholecalcif candido, Vitamin D3, 125 mcg (5,000 unit) tablet 03-17 10:56: 39 Yes 1{tbl} Take 1 tablet by mouth daily. [facility] solifenacin 5 mg tablet 03-17 10:56: 39 Yes 5mg Take 5 mg by mouth daily. [facility] magnesium oxide 400 mg magnesium Tab 03-17 10:56: 39 Yes 1{tbl} Take 1 tablet by mouth daily. [facility] coenzyme Q10 100 mg softgel 03-17 10:56: 39 Yes 100mg Take 100 mg by mouth 2 (two) times daily. [facility] Cholecalcif candido, Vitamin D3, 125 mcg (5,000 unit) tablet 03-17 10:56: 39 Yes 1{tbl} Take 1 tablet by mouth daily. [facility] solifenacin 5 mg tablet 03-17 10:56: 39 Yes 5mg Take 5 mg by mouth daily. [facility] magnesium oxide 400 mg magnesium Tab 03-17 10:56: 39 Yes 1{tbl} Take 1 tablet by mouth daily. [facility] coenzyme Q10 100 mg softgel 03-17 10:56: 39 Yes 100mg Take 100 mg by mouth 2 (two) times daily. [facility] Cholecalcif candido, Vitamin D3, 125 mcg (5,000 unit) tablet 03-17 10:56: 39 Yes 1{tbl} Take 1 tablet by mouth daily. [facility] solifenacin 5 mg tablet 03-17 10:56: 39 Yes 5mg Take 5 mg by mouth daily. [facility] magnesium oxide 400 mg magnesium Tab 03-17 10:56: 39 Yes 1{tbl} Take 1 tablet by mouth daily. [facility] coenzyme Q10 100 mg softgel 03-17 10:56: 39 Yes 100mg Take 100 mg by mouth 2 (two) times daily. [facility] Cholecalcif candido, Vitamin D3, 125 mcg (5,000 unit) tablet 03-17 10:56: 39 Yes 1{tbl} Take 1 tablet by mouth daily. [facility] solifenacin 5 mg tablet 03-17 10:56: 39 Yes 5mg Take 5 mg by mouth daily. [facility] magnesium oxide 400 mg magnesium Tab 03-17 10:56: 39 Yes 1{tbl} Take 1 tablet by mouth daily. [facility] coenzyme Q10 100 mg softgel 03-17 10:56: 39 Yes 100mg Take 100 mg by mouth 2 (two) times daily. [facility] Cholecalcif candido, Vitamin D3, 125 mcg (5,000 unit) tablet 03-17 10:56: 39 Yes 1{tbl} Take 1 tablet by mouth daily. [facility] solifenacin 5 mg tablet 03-17 10:56: 39 Yes 5mg Take 5 mg by mouth daily. [facility] magnesium oxide 400 mg magnesium Tab 03-17 10:56: 39 Yes 1{tbl} Take 1 tablet by mouth daily. [facility] coenzyme Q10 100 mg softgel 03-17 10:56: 39 Yes 100mg Take 100 mg by mouth 2 (two) times daily. [facility] Cholecalcif candido, Vitamin D3, 125 mcg (5,000 unit) tablet 03-17 10:56: 39 Yes 1{tbl} Take 1 tablet by mouth daily. [facility] solifenacin 5 mg tablet 03-17 10:56: 39 Yes 5mg Take 5 mg by mouth daily. [facility] magnesium oxide 400 mg magnesium Tab 03-17 10:56: 39 Yes 1{tbl} Take 1 tablet by mouth daily. [facility] coenzyme Q10 100 mg softgel 03-17 10:56: 39 Yes 100mg Take 100 mg by mouth 2 (two) times daily. [facility] Cholecalcif candido, Vitamin D3, 125 mcg (5,000 unit) tablet 03-17 10:56: 39 Yes 1{tbl} Take 1 tablet by mouth daily. [facility] solifenacin 5 mg tablet 03-17 10:56: 39 Yes 5mg Take 5 mg by mouth daily. [facility] magnesium oxide 400 mg magnesium Tab 03-17 10:56: 39 Yes 1{tbl} Take 1 tablet by mouth daily. [facility] coenzyme Q10 100 mg softgel 03-17 10:56: 39 Yes 100mg Take 100 mg by mouth 2 (two) times daily. [facility] Cholecalcif candido, Vitamin D3, 125 mcg (5,000 unit) tablet 03-17 10:56: 39 Yes 1{tbl} Take 1 tablet by mouth daily. [facility] solifenacin 5 mg tablet 03-17 10:56: 39 Yes 5mg Take 5 mg by mouth daily. [facility] magnesium oxide 400 mg magnesium Tab 03-17 10:56: 39 Yes 1{tbl} Take 1 tablet by mouth daily. [facility] coenzyme Q10 100 mg softgel 03-17 10:56: 39 Yes 100mg Take 100 mg by mouth 2 (two) times daily. [facility] Cholecalcif candido, Vitamin D3, 125 mcg (5,000 unit) tablet 03-17 10:56: 39 Yes 1{tbl} Take 1 tablet by mouth daily. [facility] solifenacin 5 mg tablet 03-17 10:56: 39 Yes 5mg Take 5 mg by mouth daily. [facility] magnesium oxide 400 mg magnesium Tab 03-17 10:56: 39 Yes 1{tbl} Take 1 tablet by mouth daily. [facility] coenzyme Q10 100 mg softgel 03-17 10:56: 39 Yes 100mg Take 100 mg by mouth 2 (two) times daily. [facility] Cholecalcif candido, Vitamin D3, 125 mcg (5,000 unit) tablet 03-17 10:56: 39 Yes 1{tbl} Take 1 tablet by mouth daily. [facility] solifenacin 5 mg tablet 03-17 10:56: 39 Yes 5mg Take 5 mg by mouth daily. [facility] magnesium oxide 400 mg magnesium Tab 03-17 10:56: 39 Yes 1{tbl} Take 1 tablet by mouth daily. [facility] coenzyme Q10 100 mg softgel 03-17 10:56: 39 Yes 100mg Take 100 mg by mouth 2 (two) times daily. [facility] Cholecalcif candido, Vitamin D3, 125 mcg (5,000 unit) tablet 03-17 10:56: 39 Yes 1{tbl} Take 1 tablet by mouth daily. [facility] solifenacin 5 mg tablet 03-17 10:56: 39 Yes 5mg Take 5 mg by mouth daily. [facility] magnesium oxide 400 mg magnesium Tab 03-17 10:56: 39 Yes 1{tbl} Take 1 tablet by mouth daily. [facility] coenzyme Q10 100 mg softgel 03-17 10:56: 39 Yes 100mg Take 100 mg by mouth 2 (two) times daily. [facility] Cholecalcif candido, Vitamin D3, 125 mcg (5,000 unit) tablet 03-17 10:56: 39 Yes 1{tbl} Take 1 tablet by mouth daily. [facility] solifenacin 5 mg tablet 03-17 10:56: 39 Yes 5mg Take 5 mg by mouth daily. [facility] magnesium oxide 400 mg magnesium Tab 03-17 10:56: 39 Yes 1{tbl} Take 1 tablet by mouth daily. [facility] coenzyme Q10 100 mg softgel 03-17 10:56: 39 Yes 100mg Take 100 mg by mouth 2 (two) times daily. [facility] Cholecalcif candido, Vitamin D3, 125 mcg (5,000 unit) tablet 03-17 10:56: 39 Yes 1{tbl} Take 1 tablet by mouth daily. [facility] solifenacin 5 mg tablet 03-17 10:56: 39 Yes 5mg Take 5 mg by mouth daily. [facility] magnesium oxide 400 mg magnesium Tab 03-17 10:56: 39 Yes 1{tbl} Take 1 tablet by mouth daily. [facility] coenzyme Q10 100 mg softgel 03-17 10:56: 39 Yes 100mg Take 100 mg by mouth 2 (two) times daily. [facility] Cholecalcif candido, Vitamin D3, 125 mcg (5,000 unit) tablet 03-17 10:56: 39 Yes 1{tbl} Take 1 tablet by mouth daily. [facility] solifenacin 5 mg tablet 03-17 10:56: 39 Yes 5mg Take 5 mg by mouth daily. [facility] magnesium oxide 400 mg magnesium Tab 03-17 10:56: 39 Yes 1{tbl} Take 1 tablet by mouth daily. [facility] coenzyme Q10 100 mg softgel 03-17 10:56: 39 Yes 100mg Take 100 mg by mouth 2 (two) times daily. [facility] Cholecalcif candido, Vitamin D3, 125 mcg (5,000 unit) tablet 03-17 10:56: 39 Yes 1{tbl} Take 1 tablet by mouth daily. [facility] solifenacin 5 mg tablet 03-17 10:56: 39 Yes 5mg Take 5 mg by mouth daily. [facility] magnesium oxide 400 mg magnesium Tab 03-17 10:56: 39 Yes 1{tbl} Take 1 tablet by mouth daily. [facility] coenzyme Q10 100 mg softgel 03-17 10:56: 39 Yes 100mg Take 100 mg by mouth 2 (two) times daily. [facility] Cholecalcif candido, Vitamin D3, 125 mcg (5,000 unit) tablet 03-17 10:56: 39 Yes 1{tbl} Take 1 tablet by mouth daily. [facility] solifenacin 5 mg tablet 03-17 10:56: 39 Yes 5mg Take 5 mg by mouth daily. [facility] magnesium oxide 400 mg magnesium Tab 03-17 10:56: 39 Yes 1{tbl} Take 1 tablet by mouth daily. [facility] coenzyme Q10 100 mg softgel 03-17 10:56: 39 Yes 100mg Take 100 mg by mouth 2 (two) times daily. [facility] Cholecalcif candido, Vitamin D3, 125 mcg (5,000 unit) tablet 03-17 10:56: 39 Yes 1{tbl} Take 1 tablet by mouth daily. [facility] solifenacin 5 mg tablet 03-17 10:56: 39 Yes 5mg Take 5 mg by mouth daily. [facility] magnesium oxide 400 mg magnesium Tab 03-17 10:56: 39 Yes 1{tbl} Take 1 tablet by mouth daily. [facility] coenzyme Q10 100 mg softgel 03-17 10:56: 39 Yes 100mg Take 100 mg by mouth 2 (two) times daily. [facility] Cholecalcif candido, Vitamin D3, 125 mcg (5,000 unit) tablet 03-17 10:56: 39 Yes 1{tbl} Take 1 tablet by mouth daily. [facility] solifenacin 5 mg tablet 03-17 10:56: 39 Yes 5mg Take 5 mg by mouth daily. [facility] magnesium oxide 400 mg magnesium Tab 03-17 10:56: 39 Yes 1{tbl} Take 1 tablet by mouth daily. [facility] coenzyme Q10 100 mg softgel 03-17 10:56: 39 Yes 100mg Take 100 mg by mouth 2 (two) times daily. [facility] Cholecalcif candido, Vitamin D3, 125 mcg (5,000 unit) tablet 03-17 10:56: 39 Yes 1{tbl} Take 1 tablet by mouth daily. [facility] solifenacin 5 mg tablet 03-17 10:56: 39 Yes 5mg Take 5 mg by mouth daily. [facility] magnesium oxide 400 mg magnesium Tab 03-17 10:56: 39 Yes 1{tbl} Take 1 tablet by mouth daily. [facility] coenzyme Q10 100 mg softgel 03-17 10:56: 39 Yes 100mg Take 100 mg by mouth 2 (two) times daily. [facility] Cholecalcif candido, Vitamin D3, 125 mcg (5,000 unit) tablet 03-17 10:56: 39 Yes 1{tbl} Take 1 tablet by mouth daily. [facility] solifenacin 5 mg tablet 03-17 10:56: 39 Yes 5mg Take 5 mg by mouth daily. [facility] magnesium oxide 400 mg magnesium Tab 03-17 10:56: 39 Yes 1{tbl} Take 1 tablet by mouth daily. [facility] coenzyme Q10 100 mg softgel 03-17 10:56: 39 Yes 100mg Take 100 mg by mouth 2 (two) times daily. [facility] Cholecalcif candido, Vitamin D3, 125 mcg (5,000 unit) tablet 03-17 10:56: 39 Yes 1{tbl} Take 1 tablet by mouth daily. [facility] solifenacin 5 mg tablet 03-17 10:56: 39 Yes 5mg Take 5 mg by mouth daily. [facility] magnesium oxide 400 mg magnesium Tab 03-17 10:56: 39 Yes 1{tbl} Take 1 tablet by mouth daily. [facility] coenzyme Q10 100 mg softgel 03-17 10:56: 39 Yes 100mg Take 100 mg by mouth 2 (two) times daily. [facility] Cholecalcif candido, Vitamin D3, 125 mcg (5,000 unit) tablet 03-17 10:56: 39 Yes 1{tbl} Take 1 tablet by mouth daily. [facility] solifenacin 5 mg tablet 03-17 10:56: 39 Yes 5mg Take 5 mg by mouth daily. [facility] magnesium oxide 400 mg magnesium Tab 03-17 10:56: 39 Yes 1{tbl} Take 1 tablet by mouth daily. [facility] coenzyme Q10 100 mg softgel 03-17 10:56: 39 Yes 100mg Take 100 mg by mouth 2 (two) times daily. [facility] Cholecalcif candido, Vitamin D3, 125 mcg (5,000 unit) tablet 03-17 10:56: 39 Yes 1{tbl} Take 1 tablet by mouth daily. [facility] solifenacin 5 mg tablet 03-17 10:56: 39 Yes 5mg Take 5 mg by mouth daily. [facility] magnesium oxide 400 mg magnesium Tab 03-17 10:56: 39 Yes 1{tbl} Take 1 tablet by mouth daily. [facility] coenzyme Q10 100 mg softgel 03-17 10:56: 39 Yes 100mg Take 100 mg by mouth 2 (two) times daily. [facility] Cholecalcif candido, Vitamin D3, 125 mcg (5,000 unit) tablet 03-17 10:56: 39 Yes 1{tbl} Take 1 tablet by mouth daily. [facility] solifenacin 5 mg tablet 03-17 10:56: 39 Yes 5mg Take 5 mg by mouth daily. [facility] magnesium oxide 400 mg magnesium Tab 03-17 10:56: 39 Yes 1{tbl} Take 1 tablet by mouth daily. [facility] coenzyme Q10 100 mg softgel 03-17 10:56: 39 Yes 100mg Take 100 mg by mouth 2 (two) times daily. [facility] Cholecalcif candido, Vitamin D3, 125 mcg (5,000 unit) tablet 03-17 10:56: 39 Yes 1{tbl} Take 1 tablet by mouth daily. [facility] solifenacin 5 mg tablet 03-17 10:56: 39 Yes 5mg Take 5 mg by mouth daily. [facility] magnesium oxide 400 mg magnesium Tab 03-17 10:56: 39 Yes 1{tbl} Take 1 tablet by mouth daily. [facility] coenzyme Q10 100 mg softgel 03-17 10:56: 39 Yes 100mg Take 100 mg by mouth 2 (two) times daily. [facility] Cholecalcif candido, Vitamin D3, 125 mcg (5,000 unit) tablet 03-17 10:56: 39 Yes 1{tbl} Take 1 tablet by mouth daily. [facility] solifenacin 5 mg tablet 03-17 10:56: 39 Yes 5mg Take 5 mg by mouth daily. [facility] magnesium oxide 400 mg magnesium Tab 03-17 10:56: 39 Yes 1{tbl} Take 1 tablet by mouth daily. [facility] coenzyme Q10 100 mg softgel 03-17 10:56: 39 Yes 100mg Take 100 mg by mouth 2 (two) times daily. [facility] Cholecalcif candido, Vitamin D3, 125 mcg (5,000 unit) tablet 03-17 10:56: 39 Yes 1{tbl} Take 1 tablet by mouth daily. [facility] solifenacin 5 mg tablet 03-17 10:56: 39 Yes 5mg Take 5 mg by mouth daily. [facility] magnesium oxide 400 mg magnesium Tab 03-17 10:56: 39 Yes 1{tbl} Take 1 tablet by mouth daily. [facility] coenzyme Q10 100 mg softgel 03-17 10:56: 39 Yes 100mg Take 100 mg by mouth 2 (two) times daily. [facility] Cholecalcif candido, Vitamin D3, 125 mcg (5,000 unit) tablet 03-17 10:56: 39 Yes 1{tbl} Take 1 tablet by mouth daily. [facility] solifenacin 5 mg tablet 03-17 10:56: 39 Yes 5mg Take 5 mg by mouth daily. [facility] magnesium oxide 400 mg magnesium Tab 03-17 10:56: 39 Yes 1{tbl} Take 1 tablet by mouth daily. [facility] coenzyme Q10 100 mg softgel 03-17 10:56: 39 Yes 100mg Take 100 mg by mouth 2 (two) times daily. [facility] Cholecalcif candido, Vitamin D3, 125 mcg (5,000 unit) tablet 03-17 10:56: 39 Yes 1{tbl} Take 1 tablet by mouth daily. [facility] solifenacin 5 mg tablet 03-17 10:56: 39 Yes 5mg Take 5 mg by mouth daily. [facility] magnesium oxide 400 mg magnesium Tab 03-17 10:56: 39 Yes 1{tbl} Take 1 tablet by mouth daily. [facility] coenzyme Q10 100 mg softgel 03-17 10:56: 39 Yes 100mg Take 100 mg by mouth 2 (two) times daily. [facility] Cholecalcif candido, Vitamin D3, 125 mcg (5,000 unit) tablet 03-17 10:56: 39 Yes 1{tbl} Take 1 tablet by mouth daily. [facility] solifenacin 5 mg tablet 03-17 10:56: 39 Yes 5mg Take 5 mg by mouth daily. [facility] magnesium oxide 400 mg magnesium Tab 03-17 10:56: 39 Yes 1{tbl} Take 1 tablet by mouth daily. [facility] coenzyme Q10 100 mg softgel 03-17 10:56: 39 Yes 100mg Take 100 mg by mouth 2 (two) times daily. [facility] Cholecalcif candido, Vitamin D3, 125 mcg (5,000 unit) tablet 03-17 10:56: 39 Yes 1{tbl} Take 1 tablet by mouth daily. [facility] solifenacin 5 mg tablet 03-17 10:56: 39 Yes 5mg Take 5 mg by mouth daily. [facility] magnesium oxide 400 mg magnesium Tab 03-17 10:56: 39 Yes 1{tbl} Take 1 tablet by mouth daily. [facility] coenzyme Q10 100 mg softgel 03-17 10:56: 39 Yes 100mg Take 100 mg by mouth 2 (two) times daily. [facility] Cholecalcif candido, Vitamin D3, 125 mcg (5,000 unit) tablet 03-17 10:56: 39 Yes 1{tbl} Take 1 tablet by mouth daily. [facility] solifenacin 5 mg tablet 03-17 10:56: 39 Yes 5mg Take 5 mg by mouth daily. [facility] magnesium oxide 400 mg magnesium Tab 03-17 10:56: 39 Yes 1{tbl} Take 1 tablet by mouth daily. [facility] coenzyme Q10 100 mg softgel 03-17 10:56: 39 Yes 100mg Take 100 mg by mouth 2 (two) times daily. [facility] Cholecalcif candido, Vitamin D3, 125 mcg (5,000 unit) tablet 03-17 10:56: 39 Yes 1{tbl} Take 1 tablet by mouth daily. [facility] solifenacin 5 mg tablet 03-17 10:56: 39 Yes 5mg Take 5 mg by mouth daily. [facility] magnesium oxide 400 mg magnesium Tab 03-17 10:56: 39 Yes 1{tbl} Take 1 tablet by mouth daily. [facility] coenzyme Q10 100 mg softgel 03-17 10:56: 39 Yes 100mg Take 100 mg by mouth 2 (two) times daily. [facility] Cholecalcif candido, Vitamin D3, 125 mcg (5,000 unit) tablet 03-17 10:56: 39 Yes 1{tbl} Take 1 tablet by mouth daily. [facility] solifenacin 5 mg tablet 03-17 10:56: 39 Yes 5mg Take 5 mg by mouth daily. [facility] magnesium oxide 400 mg magnesium Tab 03-17 10:56: 39 Yes 1{tbl} Take 1 tablet by mouth daily. [facility] coenzyme Q10 100 mg softgel 03-17 10:56: 39 Yes 100mg Take 100 mg by mouth 2 (two) times daily. [facility] Cholecalcif candido, Vitamin D3, 125 mcg (5,000 unit) tablet 03-17 10:56: 39 Yes 1{tbl} Take 1 tablet by mouth daily. [facility] solifenacin 5 mg tablet 03-17 10:56: 39 Yes 5mg Take 5 mg by mouth daily. [facility] magnesium oxide 400 mg magnesium Tab 03-17 10:56: 39 Yes 1{tbl} Take 1 tablet by mouth daily. [facility] coenzyme Q10 100 mg softgel 03-17 10:56: 39 Yes 100mg Take 100 mg by mouth 2 (two) times daily. [facility] Cholecalcif candido, Vitamin D3, 125 mcg (5,000 unit) tablet 03-17 10:56: 39 Yes 1{tbl} Take 1 tablet by mouth daily. [facility] solifenacin 5 mg tablet 03-17 10:56: 39 Yes 5mg Take 5 mg by mouth daily. [facility] magnesium oxide 400 mg magnesium Tab 03-17 10:56: 39 Yes 1{tbl} Take 1 tablet by mouth daily. [facility] coenzyme Q10 100 mg softgel 03-17 10:56: 39 Yes 100mg Take 100 mg by mouth 2 (two) times daily. [facility] Cholecalcif candido, Vitamin D3, 125 mcg (5,000 unit) tablet 03-17 10:56: 39 Yes 1{tbl} Take 1 tablet by mouth daily. [facility] solifenacin 5 mg tablet 03-17 10:56: 39 Yes 5mg Take 5 mg by mouth daily. [facility] magnesium oxide 400 mg magnesium Tab 03-17 10:56: 39 Yes 1{tbl} Take 1 tablet by mouth daily. [facility] coenzyme Q10 100 mg softgel 03-17 10:56: 39 Yes 100mg Take 100 mg by mouth 2 (two) times daily. [facility] Cholecalcif candido, Vitamin D3, 125 mcg (5,000 unit) tablet 03-17 10:56: 39 Yes 1{tbl} Take 1 tablet by mouth daily. [facility] solifenacin 5 mg tablet 03-17 10:56: 39 Yes 5mg Take 5 mg by mouth daily. [facility] magnesium oxide 400 mg magnesium Tab 03-17 10:56: 39 Yes 1{tbl} Take 1 tablet by mouth daily. [facility] coenzyme Q10 100 mg softgel 03-17 10:56: 39 Yes 100mg Take 100 mg by mouth 2 (two) times daily. [facility] Cholecalcif candido, Vitamin D3, 125 mcg (5,000 unit) tablet 03-17 10:56: 39 Yes 1{tbl} Take 1 tablet by mouth daily. [facility] solifenacin 5 mg tablet 03-17 10:56: 39 Yes 5mg Take 5 mg by mouth daily. [facility] magnesium oxide 400 mg magnesium Tab 03-17 10:56: 39 Yes 1{tbl} Take 1 tablet by mouth daily. [facility] coenzyme Q10 100 mg softgel 03-17 10:56: 39 Yes 100mg Take 100 mg by mouth 2 (two) times daily. [facility] Cholecalcif candido, Vitamin D3, 125 mcg (5,000 unit) tablet 03-17 10:56: 39 Yes 1{tbl} Take 1 tablet by mouth daily. [facility] solifenacin 5 mg tablet 03-17 10:56: 39 Yes 5mg Take 5 mg by mouth daily. [facility] magnesium oxide 400 mg magnesium Tab 03-17 10:56: 39 Yes 1{tbl} Take 1 tablet by mouth daily. [facility] coenzyme Q10 100 mg softgel 03-17 10:56: 39 Yes 100mg Take 100 mg by mouth 2 (two) times daily. [facility] Cholecalcif candido, Vitamin D3, 125 mcg (5,000 unit) tablet 03-17 10:56: 39 Yes 1{tbl} Take 1 tablet by mouth daily. [facility] solifenacin 5 mg tablet 03-17 10:56: 39 Yes 5mg Take 5 mg by mouth daily. [facility] magnesium oxide 400 mg magnesium Tab 03-17 10:56: 39 Yes 1{tbl} Take 1 tablet by mouth daily. [facility] coenzyme Q10 100 mg softgel 03-17 10:56: 39 Yes 100mg Take 100 mg by mouth 2 (two) times daily. [facility] Cholecalcif candido, Vitamin D3, 125 mcg (5,000 unit) tablet 03-17 10:56: 39 Yes 1{tbl} Take 1 tablet by mouth daily. [facility] solifenacin 5 mg tablet 03-17 10:56: 39 Yes 5mg Take 5 mg by mouth daily. [facility] magnesium oxide 400 mg magnesium Tab 03-17 10:56: 39 Yes 1{tbl} Take 1 tablet by mouth daily. [facility] coenzyme Q10 100 mg softgel 03-17 10:56: 39 Yes 100mg Take 100 mg by mouth 2 (two) times daily. [facility] Cholecalcif candido, Vitamin D3, 125 mcg (5,000 unit) tablet 03-17 10:56: 39 Yes 1{tbl} Take 1 tablet by mouth daily. [facility] solifenacin 5 mg tablet 03-17 10:56: 39 Yes 5mg Take 5 mg by mouth daily. [facility] magnesium oxide 400 mg magnesium Tab 03-17 10:56: 39 Yes 1{tbl} Take 1 tablet by mouth daily. [facility] coenzyme Q10 100 mg softgel 03-17 10:56: 39 Yes 100mg Take 100 mg by mouth 2 (two) times daily. [facility] Cholecalcif candido, Vitamin D3, 125 mcg (5,000 unit) tablet 03-17 10:56: 39 Yes 1{tbl} Take 1 tablet by mouth daily. [facility] solifenacin 5 mg tablet 03-17 10:56: 39 Yes 5mg Take 5 mg by mouth daily. [facility] magnesium oxide 400 mg magnesium Tab 03-17 10:56: 39 Yes 1{tbl} Take 1 tablet by mouth daily. [facility] coenzyme Q10 100 mg softgel 03-17 10:56: 39 Yes 100mg Take 100 mg by mouth 2 (two) times daily. [facility] Cholecalcif candido, Vitamin D3, 125 mcg (5,000 unit) tablet 03-17 10:56: 39 Yes 1{tbl} Take 1 tablet by mouth daily. [facility] solifenacin 5 mg tablet 03-17 10:56: 39 Yes 5mg Take 5 mg by mouth daily. [facility] magnesium oxide 400 mg magnesium Tab 03-17 10:56: 39 Yes 1{tbl} Take 1 tablet by mouth daily. [facility] coenzyme Q10 100 mg softgel 03-17 10:56: 39 Yes 100mg Take 100 mg by mouth 2 (two) times daily. [facility] Cholecalcif candido, Vitamin D3, 125 mcg (5,000 unit) tablet 03-17 10:56: 39 Yes 1{tbl} Take 1 tablet by mouth daily. [facility] solifenacin 5 mg tablet 03-17 10:56: 39 Yes 5mg Take 5 mg by mouth daily. [facility] magnesium oxide 400 mg magnesium Tab 03-17 10:56: 39 Yes 1{tbl} Take 1 tablet by mouth daily. [facility] coenzyme Q10 100 mg softgel 03-17 10:56: 39 Yes 100mg Take 100 mg by mouth 2 (two) times daily. [facility] Cholecalcif candido, Vitamin D3, 125 mcg (5,000 unit) tablet 03-17 10:56: 39 Yes 1{tbl} Take 1 tablet by mouth daily. [facility] solifenacin 5 mg tablet 03-17 10:56: 39 Yes 5mg Take 5 mg by mouth daily. [facility] magnesium oxide 400 mg magnesium Tab 03-17 10:56: 39 Yes 1{tbl} Take 1 tablet by mouth daily. [facility] coenzyme Q10 100 mg softgel 03-17 10:56: 39 Yes 100mg Take 100 mg by mouth 2 (two) times daily. [facility] Cholecalcif candido, Vitamin D3, 125 mcg (5,000 unit) tablet 03-17 10:56: 39 Yes 1{tbl} Take 1 tablet by mouth daily. [facility] solifenacin 5 mg tablet 03-17 10:56: 39 Yes 5mg Take 5 mg by mouth daily. [facility] magnesium oxide 400 mg magnesium Tab 03-17 10:56: 39 Yes 1{tbl} Take 1 tablet by mouth daily. [facility] coenzyme Q10 100 mg softgel 03-17 10:56: 39 Yes 100mg Take 100 mg by mouth 2 (two) times daily. [facility] Cholecalcif candido, Vitamin D3, 125 mcg (5,000 unit) tablet 03-17 10:56: 39 Yes 1{tbl} Take 1 tablet by mouth daily. [facility] solifenacin 5 mg tablet 03-17 10:56: 39 Yes 5mg Take 5 mg by mouth daily. [facility] magnesium oxide 400 mg magnesium Tab 03-17 10:56: 39 Yes 1{tbl} Take 1 tablet by mouth daily. [facility] coenzyme Q10 100 mg softgel 03-17 10:56: 39 Yes 100mg Take 100 mg by mouth 2 (two) times daily. [facility] Cholecalcif candido, Vitamin D3, 125 mcg (5,000 unit) tablet 03-17 10:56: 39 Yes 1{tbl} Take 1 tablet by mouth daily. [facility] solifenacin 5 mg tablet 03-17 10:56: 39 Yes 5mg Take 5 mg by mouth daily. [facility] magnesium oxide 400 mg magnesium Tab 03-17 10:56: 39 Yes 1{tbl} Take 1 tablet by mouth daily. [facility] coenzyme Q10 100 mg softgel 03-17 10:56: 39 Yes 100mg Take 100 mg by mouth 2 (two) times daily. [facility] Cholecalcif candido, Vitamin D3, 125 mcg (5,000 unit) tablet 03-17 10:56: 39 Yes 1{tbl} Take 1 tablet by mouth daily. [facility] solifenacin 5 mg tablet 03-17 10:56: 39 Yes 5mg Take 5 mg by mouth daily. [facility] magnesium oxide 400 mg magnesium Tab 03-17 10:56: 39 Yes 1{tbl} Take 1 tablet by mouth daily. [facility] coenzyme Q10 100 mg softgel 03-17 10:56: 39 Yes 100mg Take 100 mg by mouth 2 (two) times daily. [facility] Cholecalcif candido, Vitamin D3, 125 mcg (5,000 unit) tablet 03-17 10:56: 39 Yes 1{tbl} Take 1 tablet by mouth daily. [facility] solifenacin 5 mg tablet 03-17 10:56: 39 Yes 5mg Take 5 mg by mouth daily. [facility] magnesium oxide 400 mg magnesium Tab 03-17 10:56: 39 Yes 1{tbl} Take 1 tablet by mouth daily. [facility] coenzyme Q10 100 mg softgel 03-17 10:56: 39 Yes 100mg Take 100 mg by mouth 2 (two) times daily. [facility] Cholecalcif candido, Vitamin D3, 125 mcg (5,000 unit) tablet 03-17 10:56: 39 Yes 1{tbl} Take 1 tablet by mouth daily. [facility] solifenacin 5 mg tablet 03-17 10:56: 39 Yes 5mg Take 5 mg by mouth daily. [facility] magnesium oxide 400 mg magnesium Tab 03-17 10:56: 39 Yes 1{tbl} Take 1 tablet by mouth daily. [facility] coenzyme Q10 100 mg softgel 03-17 10:56: 39 Yes 100mg Take 100 mg by mouth 2 (two) times daily. [facility] Cholecalcif candido, Vitamin D3, 125 mcg (5,000 unit) tablet 03-17 10:56: 39 Yes 1{tbl} Take 1 tablet by mouth daily. [facility] solifenacin 5 mg tablet 03-17 10:56: 39 Yes 5mg Take 5 mg by mouth daily. [facility] magnesium oxide 400 mg magnesium Tab 03-17 10:56: 39 Yes 1{tbl} Take 1 tablet by mouth daily. [facility] coenzyme Q10 100 mg softgel 03-17 10:56: 39 Yes 100mg Take 100 mg by mouth 2 (two) times daily. [facility] Cholecalcif candido, Vitamin D3, 125 mcg (5,000 unit) tablet 03-17 10:56: 39 Yes 1{tbl} Take 1 tablet by mouth daily. [facility] solifenacin 5 mg tablet 03-17 10:56: 39 Yes 5mg Take 5 mg by mouth daily. [facility] magnesium oxide 400 mg magnesium Tab 03-17 10:56: 39 Yes 1{tbl} Take 1 tablet by mouth daily. [facility] coenzyme Q10 100 mg softgel 03-17 10:56: 39 Yes 100mg Take 100 mg by mouth 2 (two) times daily. [facility] Cholecalcif candido, Vitamin D3, 125 mcg (5,000 unit) tablet 03-17 10:56: 39 Yes 1{tbl} Take 1 tablet by mouth daily. [facility] solifenacin 5 mg tablet 03-17 10:56: 39 Yes 5mg Take 5 mg by mouth daily. [facility] magnesium oxide 400 mg magnesium Tab 03-17 10:56: 39 Yes 1{tbl} Take 1 tablet by mouth daily. [facility] coenzyme Q10 100 mg softgel 03-17 10:56: 39 Yes 100mg Take 100 mg by mouth 2 (two) times daily. [facility] Cholecalcif candido, Vitamin D3, 125 mcg (5,000 unit) tablet 03-17 10:56: 39 Yes 1{tbl} Take 1 tablet by mouth daily. [facility] solifenacin 5 mg tablet 03-17 10:56: 39 Yes 5mg Take 5 mg by mouth daily. [facility] magnesium oxide 400 mg magnesium Tab 03-17 10:56: 39 Yes 1{tbl} Take 1 tablet by mouth daily. [facility] coenzyme Q10 100 mg softgel 03-17 10:56: 39 Yes 100mg Take 100 mg by mouth 2 (two) times daily. [facility] Cholecalcif candido, Vitamin D3, 125 mcg (5,000 unit) tablet 03-17 10:56: 39 Yes 1{tbl} Take 1 tablet by mouth daily. [facility] solifenacin 5 mg tablet 03-17 10:56: 39 Yes 5mg Take 5 mg by mouth daily. [facility] magnesium oxide 400 mg magnesium Tab 03-17 10:56: 39 Yes 1{tbl} Take 1 tablet by mouth daily. [facility] coenzyme Q10 100 mg softgel 03-17 10:56: 39 Yes 100mg Take 100 mg by mouth 2 (two) times daily. [facility] Cholecalcif candido, Vitamin D3, 125 mcg (5,000 unit) tablet 03-17 10:56: 39 Yes 1{tbl} Take 1 tablet by mouth daily. [facility] solifenacin 5 mg tablet 03-17 10:56: 39 Yes 5mg Take 5 mg by mouth daily. [facility] magnesium oxide 400 mg magnesium Tab 03-17 10:56: 39 Yes 1{tbl} Take 1 tablet by mouth daily. [facility] coenzyme Q10 100 mg softgel 03-17 10:56: 39 Yes 100mg Take 100 mg by mouth 2 (two) times daily. [facility] Cholecalcif candido, Vitamin D3, 125 mcg (5,000 unit) tablet 03-17 10:56: 39 Yes 1{tbl} Take 1 tablet by mouth daily. [facility] solifenacin 5 mg tablet 03-17 10:56: 39 Yes 5mg Take 5 mg by mouth daily. [facility] magnesium oxide 400 mg magnesium Tab 03-17 10:56: 39 Yes 1{tbl} Take 1 tablet by mouth daily. [facility] coenzyme Q10 100 mg softgel 03-17 10:56: 39 Yes 100mg Take 100 mg by mouth 2 (two) times daily. [facility] Cholecalcif candido, Vitamin D3, 125 mcg (5,000 unit) tablet 03-17 10:56: 39 Yes 1{tbl} Take 1 tablet by mouth daily. [facility] solifenacin 5 mg tablet 03-17 10:56: 39 Yes 5mg Take 5 mg by mouth daily. [facility] magnesium oxide 400 mg magnesium Tab 03-17 10:56: 39 Yes 1{tbl} Take 1 tablet by mouth daily. [facility] coenzyme Q10 100 mg softgel 03-17 10:56: 39 Yes 100mg Take 100 mg by mouth 2 (two) times daily. [facility] Cholecalcif candido, Vitamin D3, 125 mcg (5,000 unit) tablet 03-17 10:56: 39 Yes 1{tbl} Take 1 tablet by mouth daily. [facility] solifenacin 5 mg tablet 03-17 10:56: 39 Yes 5mg Take 5 mg by mouth daily. [facility] magnesium oxide 400 mg magnesium Tab 03-17 10:56: 39 Yes 1{tbl} Take 1 tablet by mouth daily. [facility] coenzyme Q10 100 mg softgel 03-17 10:56: 39 Yes 100mg Take 100 mg by mouth 2 (two) times daily. [facility] Cholecalcif candido, Vitamin D3, 125 mcg (5,000 unit) tablet 03-17 10:56: 39 Yes 1{tbl} Take 1 tablet by mouth daily. [facility] solifenacin 5 mg tablet 03-17 10:56: 39 Yes 5mg Take 5 mg by mouth daily. [facility] magnesium oxide 400 mg magnesium Tab 03-17 10:56: 39 Yes 1{tbl} Take 1 tablet by mouth daily. [facility] coenzyme Q10 100 mg softgel 03-17 10:56: 39 Yes 100mg Take 100 mg by mouth 2 (two) times daily. [facility] Cholecalcif candido, Vitamin D3, 125 mcg (5,000 unit) tablet 03-17 10:56: 39 Yes 1{tbl} Take 1 tablet by mouth daily. [facility] solifenacin 5 mg tablet 03-17 10:56: 39 Yes 5mg Take 5 mg by mouth daily. [facility] magnesium oxide 400 mg magnesium Tab 03-17 10:56: 39 Yes 1{tbl} Take 1 tablet by mouth daily. [facility] coenzyme Q10 100 mg softgel 03-17 10:56: 39 Yes 100mg Take 100 mg by mouth 2 (two) times daily. [facility] Cholecalcif candido, Vitamin D3, 125 mcg (5,000 unit) tablet 03-17 10:56: 39 Yes 1{tbl} Take 1 tablet by mouth daily. [facility] solifenacin 5 mg tablet 03-17 10:56: 39 Yes 5mg Take 5 mg by mouth daily. [facility] magnesium oxide 400 mg magnesium Tab 03-17 10:56: 39 Yes 1{tbl} Take 1 tablet by mouth daily. [facility] coenzyme Q10 100 mg softgel 03-17 10:56: 39 Yes 100mg Take 100 mg by mouth 2 (two) times daily. [facility] Cholecalcif candido, Vitamin D3, 125 mcg (5,000 unit) tablet 03-17 10:56: 39 Yes 1{tbl} Take 1 tablet by mouth daily. [facility] solifenacin 5 mg tablet 03-17 10:56: 39 Yes 5mg Take 5 mg by mouth daily. [facility] magnesium oxide 400 mg magnesium Tab 03-17 10:56: 39 Yes 1{tbl} Take 1 tablet by mouth daily. [facility] coenzyme Q10 100 mg softgel 03-17 10:56: 39 Yes 100mg Take 100 mg by mouth 2 (two) times daily. [facility] Cholecalcif candido, Vitamin D3, 125 mcg (5,000 unit) tablet 03-17 10:56: 39 Yes 1{tbl} Take 1 tablet by mouth daily. [facility] solifenacin 5 mg tablet 03-17 10:56: 39 Yes 5mg Take 5 mg by mouth daily. [facility] magnesium oxide 400 mg magnesium Tab 03-17 10:56: 39 Yes 1{tbl} Take 1 tablet by mouth daily. [facility] coenzyme Q10 100 mg softgel 03-17 10:56: 39 Yes 100mg Take 100 mg by mouth 2 (two) times daily. [facility] Cholecalcif candido, Vitamin D3, 125 mcg (5,000 unit) tablet 03-17 10:56: 39 Yes 1{tbl} Take 1 tablet by mouth daily. [facility] solifenacin 5 mg tablet 03-17 10:56: 39 Yes 5mg Take 5 mg by mouth daily. [facility] magnesium oxide 400 mg magnesium Tab 03-17 10:56: 39 Yes 1{tbl} Take 1 tablet by mouth daily. [facility] coenzyme Q10 100 mg softgel 03-17 10:56: 39 Yes 100mg Take 100 mg by mouth 2 (two) times daily. [facility] Cholecalcif candido, Vitamin D3, 125 mcg (5,000 unit) tablet 03-17 10:56: 39 Yes 1{tbl} Take 1 tablet by mouth daily. [facility] solifenacin 5 mg tablet 03-17 10:56: 39 Yes 5mg Take 5 mg by mouth daily. [facility] magnesium oxide 400 mg magnesium Tab 03-17 10:56: 39 Yes 1{tbl} Take 1 tablet by mouth daily. [facility] coenzyme Q10 100 mg softgel 03-17 10:56: 39 Yes 100mg Take 100 mg by mouth 2 (two) times daily. [facility] Cholecalcif candido, Vitamin D3, 125 mcg (5,000 unit) tablet 03-17 10:56: 39 Yes 1{tbl} Take 1 tablet by mouth daily. [facility] solifenacin 5 mg tablet 03-17 10:56: 39 Yes 5mg Take 5 mg by mouth daily. [facility] magnesium oxide 400 mg magnesium Tab 03-17 10:56: 39 Yes 1{tbl} Take 1 tablet by mouth daily. [facility] coenzyme Q10 100 mg softgel 03-17 10:56: 39 Yes 100mg Take 100 mg by mouth 2 (two) times daily. [facility] Cholecalcif candido, Vitamin D3, 125 mcg (5,000 unit) tablet 03-17 10:56: 39 Yes 1{tbl} Take 1 tablet by mouth daily. [facility] solifenacin 5 mg tablet 03-17 10:56: 39 Yes 5mg Take 5 mg by mouth daily. [facility] magnesium oxide 400 mg magnesium Tab 03-17 10:56: 39 Yes 1{tbl} Take 1 tablet by mouth daily. [facility] coenzyme Q10 100 mg softgel 03-17 10:56: 39 Yes 100mg Take 100 mg by mouth 2 (two) times daily. [facility] Cholecalcif candido, Vitamin D3, 125 mcg (5,000 unit) tablet 03-17 10:56: 39 Yes 1{tbl} Take 1 tablet by mouth daily. [facility] solifenacin 5 mg tablet 03-17 10:56: 39 Yes 5mg Take 5 mg by mouth daily. [facility] magnesium oxide 400 mg magnesium Tab 03-17 10:56: 39 Yes 1{tbl} Take 1 tablet by mouth daily. [facility] coenzyme Q10 100 mg softgel 03-17 10:56: 39 Yes 100mg Take 100 mg by mouth 2 (two) times daily. [facility] Cholecalcif candido, Vitamin D3, 125 mcg (5,000 unit) tablet 03-17 10:56: 39 Yes 1{tbl} Take 1 tablet by mouth daily. [facility] solifenacin 5 mg tablet 03-17 10:56: 39 Yes 5mg Take 5 mg by mouth daily. [facility] magnesium oxide 400 mg magnesium Tab 03-17 10:56: 39 Yes 1{tbl} Take 1 tablet by mouth daily. [facility] coenzyme Q10 100 mg softgel 03-17 10:56: 39 Yes 100mg Take 100 mg by mouth 2 (two) times daily. [facility] Cholecalcif candido, Vitamin D3, 125 mcg (5,000 unit) tablet 03-17 10:56: 39 Yes 1{tbl} Take 1 tablet by mouth daily. [facility] solifenacin 5 mg tablet 03-17 10:56: 39 Yes 5mg Take 5 mg by mouth daily. [facility] magnesium oxide 400 mg magnesium Tab 03-17 10:56: 39 Yes 1{tbl} Take 1 tablet by mouth daily. [facility] coenzyme Q10 100 mg softgel 03-17 10:56: 39 Yes 100mg Take 100 mg by mouth 2 (two) times daily. [facility] Cholecalcif candido, Vitamin D3, 125 mcg (5,000 unit) tablet 03-17 10:56: 39 Yes 1{tbl} Take 1 tablet by mouth daily. [facility] solifenacin 5 mg tablet 03-17 10:56: 39 Yes 5mg Take 5 mg by mouth daily. [facility] magnesium oxide 400 mg magnesium Tab 03-17 10:56: 39 Yes 1{tbl} Take 1 tablet by mouth daily. [facility] coenzyme Q10 100 mg softgel 03-17 10:56: 39 Yes 100mg Take 100 mg by mouth 2 (two) times daily. [facility] Cholecalcif candido, Vitamin D3, 125 mcg (5,000 unit) tablet 03-17 10:56: 39 Yes 1{tbl} Take 1 tablet by mouth daily. [facility] solifenacin 5 mg tablet 03-17 10:56: 39 Yes 5mg Take 5 mg by mouth daily. [facility] magnesium oxide 400 mg magnesium Tab 03-17 10:56: 39 Yes 1{tbl} Take 1 tablet by mouth daily. [facility] coenzyme Q10 100 mg softgel 03-17 10:56: 39 Yes 100mg Take 100 mg by mouth 2 (two) times daily. [facility] Cholecalcif candido, Vitamin D3, 125 mcg (5,000 unit) tablet 03-17 10:56: 39 Yes 1{tbl} Take 1 tablet by mouth daily. [facility] solifenacin 5 mg tablet 03-17 10:56: 39 Yes 5mg Take 5 mg by mouth daily. [facility] magnesium oxide 400 mg magnesium Tab 03-17 10:56: 39 Yes 1{tbl} Take 1 tablet by mouth daily. [facility] coenzyme Q10 100 mg softgel 03-17 10:56: 39 Yes 100mg Take 100 mg by mouth 2 (two) times daily. [facility] Cholecalcif candido, Vitamin D3, 125 mcg (5,000 unit) tablet 03-17 10:56: 39 Yes 1{tbl} Take 1 tablet by mouth daily. [facility] solifenacin 5 mg tablet 03-17 10:56: 39 Yes 5mg Take 5 mg by mouth daily. [facility] magnesium oxide 400 mg magnesium Tab 03-17 10:56: 39 Yes 1{tbl} Take 1 tablet by mouth daily. [facility] coenzyme Q10 100 mg softgel 03-17 10:56: 39 Yes 100mg Take 100 mg by mouth 2 (two) times daily. [facility] Cholecalcif candido, Vitamin D3, 125 mcg (5,000 unit) tablet 03-17 10:56: 39 Yes 1{tbl} Take 1 tablet by mouth daily. [facility] solifenacin 5 mg tablet 03-17 10:56: 39 Yes 5mg Take 5 mg by mouth daily. [facility] magnesium oxide 400 mg magnesium Tab 03-17 10:56: 39 Yes 1{tbl} Take 1 tablet by mouth daily. [facility] coenzyme Q10 100 mg softgel 03-17 10:56: 39 Yes 100mg Take 100 mg by mouth 2 (two) times daily. [facility] Cholecalcif candido, Vitamin D3, 125 mcg (5,000 unit) tablet 03-17 10:56: 39 Yes 1{tbl} Take 1 tablet by mouth daily. [facility] solifenacin 5 mg tablet 03-17 10:56: 39 Yes 5mg Take 5 mg by mouth daily. [facility] magnesium oxide 400 mg magnesium Tab 03-17 10:56: 39 Yes 1{tbl} Take 1 tablet by mouth daily. [facility] coenzyme Q10 100 mg softgel 03-17 10:56: 39 Yes 100mg Take 100 mg by mouth 2 (two) times daily. [facility] Cholecalcif candido, Vitamin D3, 125 mcg (5,000 unit) tablet 03-17 10:56: 39 Yes 1{tbl} Take 1 tablet by mouth daily. [facility] solifenacin 5 mg tablet 03-17 10:56: 39 Yes 5mg Take 5 mg by mouth daily. [facility] magnesium oxide 400 mg magnesium Tab 03-17 10:56: 39 Yes 1{tbl} Take 1 tablet by mouth daily. [facility] coenzyme Q10 100 mg softgel 03-17 10:56: 39 Yes 100mg Take 100 mg by mouth 2 (two) times daily. [facility] Cholecalcif candido, Vitamin D3, 125 mcg (5,000 unit) tablet 03-17 10:56: 39 Yes 1{tbl} Take 1 tablet by mouth daily. [facility] solifenacin 5 mg tablet 03-17 10:56: 39 Yes 5mg Take 5 mg by mouth daily. [facility] magnesium oxide 400 mg magnesium Tab 03-17 10:56: 39 Yes 1{tbl} Take 1 tablet by mouth daily. [facility] coenzyme Q10 100 mg softgel 03-17 10:56: 39 Yes 100mg Take 100 mg by mouth 2 (two) times daily. [facility] Cholecalcif candido, Vitamin D3, 125 mcg (5,000 unit) tablet 03-17 10:56: 39 Yes 1{tbl} Take 1 tablet by mouth daily. [facility] solifenacin 5 mg tablet 03-17 10:56: 39 Yes 5mg Take 5 mg by mouth daily. [facility] magnesium oxide 400 mg magnesium Tab 03-17 10:56: 39 Yes 1{tbl} Take 1 tablet by mouth daily. [facility] coenzyme Q10 100 mg softgel 03-17 10:56: 39 Yes 100mg Take 100 mg by mouth 2 (two) times daily. [facility] Cholecalcif candido, Vitamin D3, 125 mcg (5,000 unit) tablet 03-17 10:56: 39 Yes 1{tbl} Take 1 tablet by mouth daily. [facility] solifenacin 5 mg tablet 03-17 10:56: 39 Yes 5mg Take 5 mg by mouth daily. [facility] magnesium oxide 400 mg magnesium Tab 03-17 10:56: 39 Yes 1{tbl} Take 1 tablet by mouth daily. [facility] coenzyme Q10 100 mg softgel 03-17 10:56: 39 Yes 100mg Take 100 mg by mouth 2 (two) times daily. [facility] Cholecalcif candido, Vitamin D3, 125 mcg (5,000 unit) tablet 03-17 10:56: 39 Yes 1{tbl} Take 1 tablet by mouth daily. [facility] solifenacin 5 mg tablet 03-17 10:56: 39 Yes 5mg Take 5 mg by mouth daily. [facility] magnesium oxide 400 mg magnesium Tab 03-17 10:56: 39 Yes 1{tbl} Take 1 tablet by mouth daily. [facility] coenzyme Q10 100 mg softgel 03-17 10:56: 39 Yes 100mg Take 100 mg by mouth 2 (two) times daily. [facility] Cholecalcif candido, Vitamin D3, 125 mcg (5,000 unit) tablet 03-17 10:56: 39 Yes 1{tbl} Take 1 tablet by mouth daily. [facility] solifenacin 5 mg tablet 03-17 10:56: 39 Yes 5mg Take 5 mg by mouth daily. [facility] magnesium oxide 400 mg magnesium Tab 03-17 10:56: 39 Yes 1{tbl} Take 1 tablet by mouth daily. [facility] coenzyme Q10 100 mg softgel 03-17 10:56: 39 Yes 100mg Take 100 mg by mouth 2 (two) times daily. [facility] Cholecalcif candido, Vitamin D3, 125 mcg (5,000 unit) tablet 03-17 10:56: 39 Yes 1{tbl} Take 1 tablet by mouth daily. [facility] solifenacin 5 mg tablet 03-17 10:56: 39 Yes 5mg Take 5 mg by mouth daily. [facility] magnesium oxide 400 mg magnesium Tab 03-17 10:56: 39 Yes 1{tbl} Take 1 tablet by mouth daily. [facility] coenzyme Q10 100 mg softgel 03-17 10:56: 39 Yes 100mg Take 100 mg by mouth 2 (two) times daily. [facility] Cholecalcif candido, Vitamin D3, 125 mcg (5,000 unit) tablet 03-17 10:56: 39 Yes 1{tbl} Take 1 tablet by mouth daily. [facility] solifenacin 5 mg tablet 03-17 10:56: 39 Yes 5mg Take 5 mg by mouth daily. [facility] magnesium oxide 400 mg magnesium Tab 03-17 10:56: 39 Yes 1{tbl} Take 1 tablet by mouth daily. [facility] coenzyme Q10 100 mg softgel 03-17 10:56: 39 Yes 100mg Take 100 mg by mouth 2 (two) times daily. [facility] Cholecalcif candido, Vitamin D3, 125 mcg (5,000 unit) tablet 03-17 10:56: 39 Yes 1{tbl} Take 1 tablet by mouth daily. [facility] solifenacin 5 mg tablet 03-17 10:56: 39 Yes 5mg Take 5 mg by mouth daily. [facility] magnesium oxide 400 mg magnesium Tab 03-17 10:56: 39 Yes 1{tbl} Take 1 tablet by mouth daily. [facility] coenzyme Q10 100 mg softgel 03-17 10:56: 39 Yes 100mg Take 100 mg by mouth 2 (two) times daily. [facility] Cholecalcif candido, Vitamin D3, 125 mcg (5,000 unit) tablet 03-17 10:56: 39 Yes 1{tbl} Take 1 tablet by mouth daily. [facility] solifenacin 5 mg tablet 03-17 10:56: 39 Yes 5mg Take 5 mg by mouth daily. [facility] magnesium oxide 400 mg magnesium Tab 03-17 10:56: 39 Yes 1{tbl} Take 1 tablet by mouth daily. [facility] coenzyme Q10 100 mg softgel 03-17 10:56: 39 Yes 100mg Take 100 mg by mouth 2 (two) times daily. [facility] Cholecalcif candido, Vitamin D3, 125 mcg (5,000 unit) tablet 03-17 10:56: 39 Yes 1{tbl} Take 1 tablet by mouth daily. [facility] solifenacin 5 mg tablet 03-17 10:56: 39 Yes 5mg Take 5 mg by mouth daily. [facility] magnesium oxide 400 mg magnesium Tab 03-17 10:56: 39 Yes 1{tbl} Take 1 tablet by mouth daily. [facility] coenzyme Q10 100 mg softgel 03-17 10:56: 39 Yes 100mg Take 100 mg by mouth 2 (two) times daily. [facility] Cholecalcif candido, Vitamin D3, 125 mcg (5,000 unit) tablet 03-17 10:56: 39 Yes 1{tbl} Take 1 tablet by mouth daily. [facility] solifenacin 5 mg tablet 03-17 10:56: 39 Yes 5mg Take 5 mg by mouth daily. [facility] magnesium oxide 400 mg magnesium Tab 03-17 10:56: 39 Yes 1{tbl} Take 1 tablet by mouth daily. [facility] coenzyme Q10 100 mg softgel 03-17 10:56: 39 Yes 100mg Take 100 mg by mouth 2 (two) times daily. [facility] Cholecalcif candido, Vitamin D3, 125 mcg (5,000 unit) tablet 03-17 10:56: 39 Yes 1{tbl} Take 1 tablet by mouth daily. [facility] solifenacin 5 mg tablet 03-17 10:56: 39 Yes 5mg Take 5 mg by mouth daily. [facility] magnesium oxide 400 mg magnesium Tab 03-17 10:56: 39 Yes 1{tbl} Take 1 tablet by mouth daily. [facility] coenzyme Q10 100 mg softgel 03-17 10:56: 39 Yes 100mg Take 100 mg by mouth 2 (two) times daily. [facility] Cholecalcif candido, Vitamin D3, 125 mcg (5,000 unit) tablet 03-17 10:56: 39 Yes 1{tbl} Take 1 tablet by mouth daily. [facility] solifenacin 5 mg tablet 03-17 10:56: 39 Yes 5mg Take 5 mg by mouth daily. [facility] magnesium oxide 400 mg magnesium Tab 03-17 10:56: 39 Yes 1{tbl} Take 1 tablet by mouth daily. [facility] coenzyme Q10 100 mg softgel 03-17 10:56: 39 Yes 100mg Take 100 mg by mouth 2 (two) times daily. [facility] Cholecalcif candido, Vitamin D3, 125 mcg (5,000 unit) tablet 03-17 10:56: 39 Yes 1{tbl} Take 1 tablet by mouth daily. [facility] solifenacin 5 mg tablet 03-17 10:56: 39 Yes 5mg Take 5 mg by mouth daily. [facility] magnesium oxide 400 mg magnesium Tab 03-17 10:56: 39 Yes 1{tbl} Take 1 tablet by mouth daily. [facility] coenzyme Q10 100 mg softgel 03-17 10:56: 39 Yes 100mg Take 100 mg by mouth 2 (two) times daily. [facility] Cholecalcif candido, Vitamin D3, 125 mcg (5,000 unit) tablet 03-17 10:56: 39 Yes 1{tbl} Take 1 tablet by mouth daily. [facility] solifenacin 5 mg tablet 03-17 10:56: 39 Yes 5mg Take 5 mg by mouth daily. [facility] magnesium oxide 400 mg magnesium Tab 03-17 10:56: 39 Yes 1{tbl} Take 1 tablet by mouth daily. [facility] coenzyme Q10 100 mg softgel 03-17 10:56: 39 Yes 100mg Take 100 mg by mouth 2 (two) times daily. [facility] Cholecalcif candido, Vitamin D3, 125 mcg (5,000 unit) tablet 03-17 10:56: 39 Yes 1{tbl} Take 1 tablet by mouth daily. [facility] solifenacin 5 mg tablet 03-17 10:56: 39 Yes 5mg Take 5 mg by mouth daily. [facility] magnesium oxide 400 mg magnesium Tab 03-17 10:56: 39 Yes 1{tbl} Take 1 tablet by mouth daily. [facility] coenzyme Q10 100 mg softgel 03-17 10:56: 39 Yes 100mg Take 100 mg by mouth 2 (two) times daily. [facility] Cholecalcif candido, Vitamin D3, 125 mcg (5,000 unit) tablet 03-17 10:56: 39 Yes 1{tbl} Take 1 tablet by mouth daily. [facility] solifenacin 5 mg tablet 03-17 10:56: 39 Yes 5mg Take 5 mg by mouth daily. [facility] magnesium oxide 400 mg magnesium Tab 03-17 10:56: 39 Yes 1{tbl} Take 1 tablet by mouth daily. [facility] coenzyme Q10 100 mg softgel 03-17 10:56: 39 Yes 100mg Take 100 mg by mouth 2 (two) times daily. [facility] Cholecalcif candido, Vitamin D3, 125 mcg (5,000 unit) tablet 03-17 10:56: 39 Yes 1{tbl} Take 1 tablet by mouth daily. [facility] solifenacin 5 mg tablet 03-17 10:56: 39 Yes 5mg Take 5 mg by mouth daily. [facility] magnesium oxide 400 mg magnesium Tab 03-17 10:56: 39 Yes 1{tbl} Take 1 tablet by mouth daily. [facility] coenzyme Q10 100 mg softgel 03-17 10:56: 39 Yes 100mg Take 100 mg by mouth 2 (two) times daily. [facility] Cholecalcif candido, Vitamin D3, 125 mcg (5,000 unit) tablet 03-17 10:56: 39 Yes 1{tbl} Take 1 tablet by mouth daily. [facility] solifenacin 5 mg tablet 03-17 10:56: 39 Yes 5mg Take 5 mg by mouth daily. [facility] magnesium oxide 400 mg magnesium Tab 03-17 10:56: 39 Yes 1{tbl} Take 1 tablet by mouth daily. [facility] coenzyme Q10 100 mg softgel 03-17 10:56: 39 Yes 100mg Take 100 mg by mouth 2 (two) times daily. [facility] Cholecalcif candido, Vitamin D3, 125 mcg (5,000 unit) tablet 03-17 10:56: 39 Yes 1{tbl} Take 1 tablet by mouth daily. [facility] solifenacin 5 mg tablet 03-17 10:56: 39 Yes 5mg Take 5 mg by mouth daily. [facility] magnesium oxide 400 mg magnesium Tab 03-17 10:56: 39 Yes 1{tbl} Take 1 tablet by mouth daily. [facility] coenzyme Q10 100 mg softgel 03-17 10:56: 39 Yes 100mg Take 100 mg by mouth 2 (two) times daily. [facility] Cholecalcif candido, Vitamin D3, 125 mcg (5,000 unit) tablet 03-17 10:56: 39 Yes 1{tbl} Take 1 tablet by mouth daily. [facility] solifenacin 5 mg tablet 03-17 10:56: 39 Yes 5mg Take 5 mg by mouth daily. [facility] magnesium oxide 400 mg magnesium Tab 03-17 10:56: 39 Yes 1{tbl} Take 1 tablet by mouth daily. [facility] coenzyme Q10 100 mg softgel 03-17 10:56: 39 Yes 100mg Take 100 mg by mouth 2 (two) times daily. [facility] Cholecalcif candido, Vitamin D3, 125 mcg (5,000 unit) tablet 03-17 10:56: 39 Yes 1{tbl} Take 1 tablet by mouth daily. [facility] solifenacin 5 mg tablet 03-17 10:56: 39 Yes 5mg Take 5 mg by mouth daily. [facility] magnesium oxide 400 mg magnesium Tab 03-17 10:56: 39 Yes 1{tbl} Take 1 tablet by mouth daily. [facility] furosemide 40 mg tablet 2022-0 8-25 00:00: 00 Yes [id number] 40mg Take 1 tablet by mouth every morning and evening. [facility] KCL 20 mEq tablet 2021-0 825 00:00: 00 Yes [id number] 20meq Take 1 tablet by mouth in the morning. [facility] furosemide 40 mg tablet 2021-0 825 00:00: 00 Yes [id number] 40mg Take 1 tablet by mouth every morning and evening. [facility] KCL 20 mEq tablet 2021-0 825 00:00: 00 Yes [id number] 20meq Take 1 tablet by mouth in the morning. [facility] furosemide 40 mg tablet 2021-0 8 00:00: 00 Yes [id number] 40mg Take 1 tablet by mouth every morning and evening. [facility] KCL 20 mEq tablet 2021-0 8 00:00: 00 Yes [id number] 20meq Take 1 tablet by mouth in the morning. [facility] furosemide 40 mg tablet 2021-0 03-17 00:00: 00 Yes [id number] 40mg Take 1 tablet by mouth every morning and evening. [facility] KCL 20 mEq tablet 2021-0 8 00:00: 00 Yes [id number] 20meq Take 1 tablet by mouth in the morning. [facility] furosemide 40 mg tablet 2021-0 03-17 00:00: 00 Yes [id number] 40mg Take 1 tablet by mouth every morning and evening. [facility] KCL 20 mEq tablet 2021-0 825 00:00: 00 Yes [id number] 20meq Take 1 tablet by mouth in the morning. [facility] furosemide 40 mg tablet 2-0 825 00:00: 00 Yes [id number] 40mg Take 1 tablet by mouth every morning and evening. [facility] KCL 20 mEq tablet 2021-0 825 00:00: 00 Yes [id number] 20meq Take 1 tablet by mouth in the morning. [facility] furosemide 40 mg tablet 2-0 825 00:00: 00 Yes [id number] 40mg Take 1 tablet by mouth every morning and evening. [facility] KCL 20 mEq tablet 2021-0 8-25 00:00: 00 Yes [id number] 20meq Take 1 tablet by mouth in the morning. [facility] furosemide 40 mg tablet 2021-0 8-25 00:00: 00 Yes [id number] 40mg Take 1 tablet by mouth every morning and evening. [facility] KCL 20 mEq tablet 2021-0 8-25 00:00: 00 Yes [id number] 20meq Take 1 tablet by mouth in the morning. [facility] furosemide 40 mg tablet 2021-0 8-25 00:00: 00 Yes [id number] 40mg Take 1 tablet by mouth every morning and evening. [facility] KCL 20 mEq tablet 2021-0 8-25 00:00: 00 Yes [id number] 20meq Take 1 tablet by mouth in the morning. [facility] furosemide 40 mg tablet 2021-0 8-25 00:00: 00 Yes [id number] 40mg Take 1 tablet by mouth every morning and evening. [facility] KCL 20 mEq tablet 2021-0 825 00:00: 00 Yes [id number] 20meq Take 1 tablet by mouth in the morning. [facility] furosemide 40 mg tablet 2021-0 825 00:00: 00 Yes [id number] 40mg Take 1 tablet by mouth every morning and evening. [facility] KCL 20 mEq tablet 2021-0 8-25 00:00: 00 Yes [id number] 20meq Take 1 tablet by mouth in the morning. [facility] furosemide 40 mg tablet 2021-0 8-25 00:00: 00 Yes [id number] 40mg Take 1 tablet by mouth every morning and evening. [facility] KCL 20 mEq tablet 2-0 8-25 00:00: 00 Yes [id number] 20meq Take 1 tablet by mouth in the morning. [facility] furosemide 40 mg tablet 2-0 8-25 00:00: 00 Yes [id number] 40mg Take 1 tablet by mouth every morning and evening. [facility] KCL 20 mEq tablet 2022-0 8-25 00:00: 00 Yes [id number] 20meq Take 1 tablet by mouth in the morning. [facility] furosemide 40 mg tablet 2021-0 8-25 00:00: 00 Yes [id number] 40mg Take 1 tablet by mouth every morning and evening. [facility] KCL 20 mEq tablet 2021-0 8-25 00:00: 00 Yes [id number] 20meq Take 1 tablet by mouth in the morning. [facility] furosemide 40 mg tablet 2021-0 8-25 00:00: 00 Yes [id number] 40mg Take 1 tablet by mouth every morning and evening. [facility] KCL 20 mEq tablet 2021-0 8-25 00:00: 00 Yes [id number] 20meq Take 1 tablet by mouth in the morning. [facility] furosemide 40 mg tablet 2021-0 8-25 00:00: 00 Yes [id number] 40mg Take 1 tablet by mouth every morning and evening. [facility] KCL 20 mEq tablet 2021-0 825 00:00: 00 Yes [id number] 20meq Take 1 tablet by mouth in the morning. [facility] furosemide 40 mg tablet 2021-0 25 00:00: 00 Yes [id number] 40mg Take 1 tablet by mouth every morning and evening. [facility] KCL 20 mEq tablet 2021-0 825 00:00: 00 Yes [id number] 20meq Take 1 tablet by mouth in the morning. [facility] furosemide 40 mg tablet 2021-0 825 00:00: 00 Yes [id number] 40mg Take 1 tablet by mouth every morning and evening. [facility] KCL 20 mEq tablet 2021-0 8-25 00:00: 00 Yes [id number] 20meq Take 1 tablet by mouth in the morning. [facility] furosemide 40 mg tablet 2021-0 8-25 00:00: 00 Yes [id number] 40mg Take 1 tablet by mouth every morning and evening. [facility] KCL 20 mEq tablet 2021-0 25 00:00: 00 Yes [id number] 20meq Take 1 tablet by mouth in the morning. [facility] furosemide 40 mg tablet 2021-0 25 00:00: 00 Yes [id number] 40mg Take 1 tablet by mouth every morning and evening. [facility] KCL 20 mEq tablet 2021-0 825 00:00: 00 Yes [id number] 20meq Take 1 tablet by mouth in the morning. [facility] furosemide 40 mg tablet 2021-0 03-17 00:00: 00 Yes [id number] 40mg Take 1 tablet by mouth every morning and evening. [facility] KCL 20 mEq tablet 2021-0 25 00:00: 00 Yes [id number] 20meq Take 1 tablet by mouth in the morning. [facility] furosemide 40 mg tablet 2021-0 03-17 00:00: 00 Yes [id number] 40mg Take 1 tablet by mouth every morning and evening. [facility] KCL 20 mEq tablet 2021-0 03-17 00:00: 00 Yes [id number] 20meq Take 1 tablet by mouth in the morning. [facility] furosemide 40 mg tablet 2021-0 03-17 00:00: 00 Yes [id number] 40mg Take 1 tablet by mouth every morning and evening. [facility] KCL 20 mEq tablet 2021-0 25 00:00: 00 Yes [id number] 20meq Take 1 tablet by mouth in the morning. [facility] furosemide 40 mg tablet 2021-0 25 00:00: 00 Yes [id number] 40mg Take 1 tablet by mouth every morning and evening. [facility] KCL 20 mEq tablet 2021-0 25 00:00: 00 Yes [id number] 20meq Take 1 tablet by mouth in the morning. [facility] furosemide 40 mg tablet 2-0 825 00:00: 00 Yes [id number] 40mg Take 1 tablet by mouth every morning and evening. [facility] KCL 20 mEq tablet 2021-0 25 00:00: 00 Yes [id number] 20meq Take 1 tablet by mouth in the morning. [facility] furosemide 40 mg tablet 2021-0 03-17 00:00: 00 Yes [id number] 40mg Take 1 tablet by mouth every morning and evening. [facility] KCL 20 mEq tablet 2021-0 825 00:00: 00 Yes [id number] 20meq Take 1 tablet by mouth in the morning. [facility] furosemide 40 mg tablet 0 03-17 00:00: 00 Yes [id number] 40mg Take 1 tablet by mouth every morning and evening. [facility] KCL 20 mEq tablet 0 03-17 00:00: 00 Yes [id number] 20meq Take 1 tablet by mouth in the morning. [facility] furosemide 40 mg tablet 2021-0 03-17 00:00: 00 Yes [id number] 40mg Take 1 tablet by mouth every morning and evening. [facility] KCL 20 mEq tablet 0 03-17 00:00: 00 Yes [id number] 20meq Take 1 tablet by mouth in the morning. [facility] furosemide 40 mg tablet 0 03-17 00:00: 00 Yes [id number] 40mg Take 1 tablet by mouth every morning and evening. [facility] KCL 20 mEq tablet 2021-0 03-17 00:00: 00 Yes [id number] 20meq Take 1 tablet by mouth in the morning. [facility] furosemide 40 mg tablet 2021-0 03-17 00:00: 00 Yes [id number] 40mg Take 1 tablet by mouth every morning and evening. [facility] KCL 20 mEq tablet 2021-0 25 00:00: 00 Yes [id number] 20meq Take 1 tablet by mouth in the morning. [facility] furosemide 40 mg tablet 2021-0 825 00:00: 00 Yes [id number] 40mg Take 1 tablet by mouth every morning and evening. [facility] KCL 20 mEq tablet 0 03-17 00:00: 00 Yes [id number] 20meq Take 1 tablet by mouth in the morning. [facility] furosemide 40 mg tablet 0 03-17 00:00: 00 Yes [id number] 40mg Take 1 tablet by mouth every morning and evening. [facility] KCL 20 mEq tablet 0 03-17 00:00: 00 Yes [id number] 20meq Take 1 tablet by mouth in the morning. [facility] furosemide 40 mg tablet 03-17 00:00: 00 Yes [id number] 40mg Take 1 tablet by mouth every morning and evening. [facility] KCL 20 mEq tablet 0 03-17 00:00: 00 Yes [id number] 20meq Take 1 tablet by mouth in the morning. [facility] furosemide 40 mg tablet 0 03-17 00:00: 00 Yes [id number] 40mg Take 1 tablet by mouth every morning and evening. [facility] KCL 20 mEq tablet 0 03-17 00:00: 00 Yes [id number] 20meq Take 1 tablet by mouth in the morning. [facility] furosemide 40 mg tablet 03-17 00:00: 00 Yes [id number] 40mg Take 1 tablet by mouth every morning and evening. [facility] KCL 20 mEq tablet 0 03-17 00:00: 00 Yes [id number] 20meq Take 1 tablet by mouth in the morning. [facility] furosemide 40 mg tablet 0 03-17 00:00: 00 Yes [id number] 40mg Take 1 tablet by mouth every morning and evening. [facility] KCL 20 mEq tablet 0 03-17 00:00: 00 Yes [id number] 20meq Take 1 tablet by mouth in the morning. [facility] furosemide 40 mg tablet 2021-0 03-17 00:00: 00 Yes [id number] 40mg Take 1 tablet by mouth every morning and evening. [facility] KCL 20 mEq tablet 0 03-17 00:00: 00 Yes [id number] 20meq Take 1 tablet by mouth in the morning. [facility] furosemide 40 mg tablet 0 03-17 00:00: 00 Yes [id number] 40mg Take 1 tablet by mouth every morning and evening. [facility] KCL 20 mEq tablet 0 03-17 00:00: 00 Yes [id number] 20meq Take 1 tablet by mouth in the morning. [facility] furosemide 40 mg tablet 0 03-17 00:00: 00 Yes [id number] 40mg Take 1 tablet by mouth every morning and evening. [facility] KCL 20 mEq tablet 0 03-17 00:00: 00 Yes [id number] 20meq Take 1 tablet by mouth in the morning. [facility] furosemide 40 mg tablet 0 03-17 00:00: 00 Yes [id number] 40mg Take 1 tablet by mouth every morning and evening. [facility] KCL 20 mEq tablet 0 03-17 00:00: 00 Yes [id number] 20meq Take 1 tablet by mouth in the morning. [facility] furosemide 40 mg tablet 0 03-17 00:00: 00 Yes [id number] 40mg Take 1 tablet by mouth every morning and evening. [facility] KCL 20 mEq tablet 0 03-17 00:00: 00 Yes [id number] 20meq Take 1 tablet by mouth in the morning. [facility] furosemide 40 mg tablet 0 03-17 00:00: 00 Yes [id number] 40mg Take 1 tablet by mouth every morning and evening. [facility] KCL 20 mEq tablet 0 03-17 00:00: 00 Yes [id number] 20meq Take 1 tablet by mouth in the morning. [facility] furosemide 40 mg tablet 2021-0 03-17 00:00: 00 Yes [id number] 40mg Take 1 tablet by mouth every morning and evening. [facility] KCL 20 mEq tablet 2021-0 03-17 00:00: 00 Yes [id number] 20meq Take 1 tablet by mouth in the morning. [facility] furosemide 40 mg tablet 2021-0 03-17 00:00: 00 Yes [id number] 40mg Take 1 tablet by mouth every morning and evening. [facility] KCL 20 mEq tablet 2021-0 03-17 00:00: 00 Yes [id number] 20meq Take 1 tablet by mouth in the morning. [facility] furosemide 40 mg tablet 0 03-17 00:00: 00 Yes [id number] 40mg Take 1 tablet by mouth every morning and evening. [facility] KCL 20 mEq tablet 0 03-17 00:00: 00 Yes [id number] 20meq Take 1 tablet by mouth in the morning. [facility] furosemide 40 mg tablet 0 03-17 00:00: 00 Yes [id number] 40mg Take 1 tablet by mouth every morning and evening. [facility] KCL 20 mEq tablet 0 03-17 00:00: 00 Yes [id number] 20meq Take 1 tablet by mouth in the morning. [facility] furosemide 40 mg tablet 0 03-17 00:00: 00 Yes [id number] 40mg Take 1 tablet by mouth every morning and evening. [facility] KCL 20 mEq tablet 0 03-17 00:00: 00 Yes [id number] 20meq Take 1 tablet by mouth in the morning. [facility] furosemide 40 mg tablet 2021-0 03-17 00:00: 00 Yes [id number] 40mg Take 1 tablet by mouth every morning and evening. [facility] KCL 20 mEq tablet 2021-0 25 00:00: 00 Yes [id number] [id number] 20meq Take 1 tablet by mouth in the morning. [facility] furosemide 40 mg tablet 2021-0 25 00:00: 00 Yes [id number] 40mg Take 1 tablet by mouth every morning and evening. [facility] KCL 20 mEq tablet 2021-0 03-17 00:00: 00 Yes [id number] 20meq Take 1 tablet by mouth in the morning. [facility] furosemide 40 mg tablet 0 03-17 00:00: 00 Yes [id number] 40mg Take 1 tablet by mouth every morning and evening. [facility] KCL 20 mEq tablet 0 03-17 00:00: 00 Yes [id number] 20meq Take 1 tablet by mouth in the morning. [facility] furosemide 40 mg tablet 0 03-17 00:00: 00 Yes [id number] 40mg Take 1 tablet by mouth every morning and evening. [facility] KCL 20 mEq tablet 0 03-17 00:00: 00 Yes [id number] 20meq Take 1 tablet by mouth in the morning. [facility] furosemide 40 mg tablet 0 03-17 00:00: 00 Yes [id number] 40mg Take 1 tablet by mouth every morning and evening. [facility] KCL 20 mEq tablet 0 03-17 00:00: 00 Yes [id number] 20meq Take 1 tablet by mouth in the morning. [facility] furosemide 40 mg tablet 0 03-17 00:00: 00 Yes [id number] 40mg Take 1 tablet by mouth every morning and evening. [facility] KCL 20 mEq tablet 0 03-17 00:00: 00 Yes [id number] 20meq Take 1 tablet by mouth in the morning. [facility] furosemide 40 mg tablet 0 03-17 00:00: 00 Yes [id number] 40mg Take 1 tablet by mouth every morning and evening. [facility] KCL 20 mEq tablet 0 03-17 00:00: 00 Yes [id number] 9108 20meq Take 1 tablet by mouth in the morning. [facility] furosemide 40 mg tablet 2021-0 25 00:00: 00 Yes [id number] 40mg Take 1 tablet by mouth every morning and evening. [facility] KCL 20 mEq tablet 0 825 00:00: 00 Yes [id number] 9108 20meq Take 1 tablet by mouth in the morning. [facility] furosemide 40 mg tablet 0 825 00:00: 00 Yes [id number] 40mg Take 1 tablet by mouth every morning and evening. [facility] KCL 20 mEq tablet 0 8 00:00: 00 Yes [id number] 9108 20meq Take 1 tablet by mouth in the morning. [facility] furosemide 40 mg tablet 8 00:00: 00 Yes [id number] 40mg Take 1 tablet by mouth every morning and evening. [facility] KCL 20 mEq tablet 0 03-17 00:00: 00 Yes [id number] 20meq Take 1 tablet by mouth in the morning. [facility] furosemide 40 mg tablet 0 03-17 00:00: 00 Yes [id number] 40mg Take 1 tablet by mouth every morning and evening. [facility] KCL 20 mEq tablet 0 03-17 00:00: 00 Yes [id number] 9108 20meq Take 1 tablet by mouth in the morning. [facility] furosemide 40 mg tablet 0 03-17 00:00: 00 07-04 00:00 :00 No [id number] 9108 40mg Take 1 tablet by mouth every morning and evening. [facility] KCL 20 mEq tablet 0 25 00:00: 00 07-04 00:00 :00 No [id number] 9108 20meq Take 1 tablet by mouth in the morning. [facility] furosemide 40 mg tablet 0 25 00:00: 00 07-04 00:00 :00 No [id number] 40mg Take 1 tablet by mouth every morning and evening. [facility] KCL 20 mEq tablet 0 25 00:00: 00 07-04 00:00 :00 No [id number] 9108 20meq Take 1 tablet by mouth in the morning. [facility] leuprolide acetate 22.5 mg injection 01-26 21:44: 11 Yes 22.5mg inject 22.5 mg under the skin every 3 (three) months. [facility] budesonide- formoteroL 160-4.5 mcg/actuati on inhaler 01-26 21:44: 11 Yes 2{puff} Inhale 2 Puffs as needed. [facility] nettle leaf (NETTLE, STINGING MISC) 01-26 21:44: 11 Yes 1 TAB-CAP/M2 . [facility] vit B complex no.12/niaci n,B3, (VITAMIN B COMPLEX NO.12-NIACI N ORAL) 01-26 21:44: 11 Yes 1000ug Take 1,000 mcg by mouth. [facility] ascorbic acid, vitamin C, (VITAMIN C) 500 mg tablet 01-26 21:44: 11 Yes 500mg Take 500 mg by mouth daily. [facility] docusate (COLACE) 100 mg capsule 01-26 21:44: 11 Yes 100mg Take 100 mg by mouth daily. [facility] leuprolide acetate 22.5 mg injection 01-26 21:44: 11 Yes 22.5mg inject 22.5 mg under the skin every 3 (three) months. [facility] budesonide- formoteroL 160-4.5 mcg/actuati on inhaler 01-26 21:44: 11 Yes 2{puff} Inhale 2 Puffs as needed. [facility] nettle leaf (NETTLE, STINGING MISC) 01-26 21:44: 11 Yes 1 TAB-CAP/M2 . [facility] vit B complex no.12/niaci n,B3, (VITAMIN B COMPLEX NO.12-NIACI N ORAL) 01-26 21:44: 11 Yes 1000ug Take 1,000 mcg by mouth. [facility] ascorbic acid, vitamin C, (VITAMIN C) 500 mg tablet 01-26 21:44: 11 Yes 500mg Take 500 mg by mouth daily. [facility] docusate (COLACE) 100 mg capsule 01-26 21:44: 11 Yes 100mg Take 100 mg by mouth daily. [facility] leuprolide acetate 22.5 mg injection 01-26 21:44: 11 Yes 22.5mg inject 22.5 mg under the skin every 3 (three) months. [facility] bud[facility]- formoteroL 160-4.5 mcg/actuati on inhaler 01-26 21:44: 11 Yes 2{puff} Inhale 2 Puffs as needed. [facility] nettle leaf (NETTLE, STINGING MISC) 01-26 21:44: 11 Yes 1 TAB-CAP/M2 . [facility] vit B complex no.12/niaci n,B3, (VITAMIN B COMPLEX NO.12-NIACI N ORAL) 01-26 21:44: 11 Yes 1000ug Take 1,000 mcg by mouth. [facility] ascorbic acid, vitamin C, (VITAMIN C) 500 mg tablet 01-26 21:44: 11 Yes 500mg Take 500 mg by mouth daily. [facility] docusate (COLACE) 100 mg capsule 01-26 21:44: 11 Yes 100mg Take 100 mg by mouth daily. [facility] leuprolide acetate 22.5 mg injection 01-26 21:44: 11 Yes 22.5mg inject 22.5 mg under the skin every 3 (three) months. [facility] budesonide- formoteroL 160-4.5 mcg/actuati on inhaler 01-26 21:44: 11 Yes 2{puff} Inhale 2 Puffs as needed. [facility] nettle leaf (NETTLE, STINGING MISC) 01-26 21:44: 11 Yes 1 TAB-CAP/M2 . [facility] vit B complex no.12/niaci n,B3, (VITAMIN B COMPLEX NO.12-NIACI N ORAL) 01-26 21:44: 11 Yes 1000ug Take 1,000 mcg by mouth. [facility] ascorbic acid, vitamin C, (VITAMIN C) 500 mg tablet 01-26 21:44: 11 Yes 500mg Take 500 mg by mouth daily. [facility] docusate (COLACE) 100 mg capsule 01-26 21:44: 11 Yes 100mg Take 100 mg by mouth daily. [facility] leuprolide acetate 22.5 mg injection 01-26 21:44: 11 Yes 22.5mg inject 22.5 mg under the skin every 3 (three) months. [facility] budesonide- formoteroL 160-4.5 mcg/actuati on inhaler 01-26 21:44: 11 Yes 2{puff} Inhale 2 Puffs as needed. [facility] nettle leaf (NETTLE, STINGING MISC) 01-26 21:44: 11 Yes 1 TAB-CAP/M2 . [facility] vit B complex no.12/niaci n,B3, (VITAMIN B COMPLEX NO.12-NIACI N ORAL) 01-26 21:44: 11 Yes 1000ug Take 1,000 mcg by mouth. [facility] ascorbic acid, vitamin C, (VITAMIN C) 500 mg tablet 01-26 21:44: 11 Yes 500mg Take 500 mg by mouth daily. [facility] docusate (COLACE) 100 mg capsule 01-26 21:44: 11 Yes 100mg Take 100 mg by mouth daily. [facility] leuprolide acetate 22.5 mg injection 01-26 21:44: 11 Yes 22.5mg inject 22.5 mg under the skin every 3 (three) months. [facility] budesonide- formoteroL 160-4.5 mcg/actuati on inhaler 01-26 21:44: 11 Yes 2{puff} Inhale 2 Puffs as needed. [facility] nettle leaf (NETTLE, STINGING MISC) 01-26 21:44: 11 Yes 1 TAB-CAP/M2 . [facility] vit B complex no.12/niaci n,B3, (VITAMIN B COMPLEX NO.12-NIACI N ORAL) 01-26 21:44: 11 Yes 1000ug Take 1,000 mcg by mouth. [facility] ascorbic acid, vitamin C, (VITAMIN C) 500 mg tablet 01-26 21:44: 11 Yes 500mg Take 500 mg by mouth daily. [facility] docusate (COLACE) 100 mg capsule 01-26 21:44: 11 Yes 100mg Take 100 mg by mouth daily. [facility] leuprolide acetate 22.5 mg injection 01-26 21:44: 11 Yes 22.5mg inject 22.5 mg under the skin every 3 (three) months. [facility] budesonide- formoteroL 160-4.5 mcg/actuati on inhaler 01-26 21:44: 11 Yes 2{puff} Inhale 2 Puffs as needed. [facility] nettle leaf (NETTLE, STINGING MISC) 01-26 21:44: 11 Yes 1 TAB-CAP/M2 . [facility] vit B complex no.12/niaci n,B3, (VITAMIN B COMPLEX NO.12-NIACI N ORAL) 01-26 21:44: 11 Yes 1000ug Take 1,000 mcg by mouth. [facility] ascorbic acid, vitamin C, (VITAMIN C) 500 mg tablet 01-26 21:44: 11 Yes 500mg Take 500 mg by mouth daily. [facility] docusate (COLACE) 100 mg capsule 01-26 21:44: 11 Yes 100mg Take 100 mg by mouth daily. [facility] leuprolide acetate 22.5 mg injection 01-26 21:44: 11 Yes 22.5mg inject 22.5 mg under the skin every 3 (three) months. [facility] budesonide- formoteroL 160-4.5 mcg/actuati on inhaler 01-26 21:44: 11 Yes 2{puff} Inhale 2 Puffs as needed. [facility] nettle leaf (NETTLE, STINGING MISC) 01-26 21:44: 11 Yes 1 TAB-CAP/M2 . [facility] vit B complex no.12/niaci n,B3, (VITAMIN B COMPLEX NO.12-NIACI N ORAL) 01-26 21:44: 11 Yes 1000ug Take 1,000 mcg by mouth. [facility] ascorbic acid, vitamin C, (VITAMIN C) 500 mg tablet 01-26 21:44: 11 Yes 500mg Take 500 mg by mouth daily. [facility] docusate (COLACE) 100 mg capsule 01-26 21:44: 11 Yes 100mg Take 100 mg by mouth daily. [facility] leuprolide acetate 22.5 mg injection 01-26 21:44: 11 Yes 22.5mg inject 22.5 mg under the skin every 3 (three) months. [facility] budesonide- formoteroL 160-4.5 mcg/actuati on inhaler 01-26 21:44: 11 Yes 2{puff} Inhale 2 Puffs as needed. [facility] nettle leaf (NETTLE, STINGING MISC) 01-26 21:44: 11 Yes 1 TAB-CAP/M2 . [facility] vit B complex no.12/niaci n,B3, (VITAMIN B COMPLEX NO.12-NIACI N ORAL) 01-26 21:44: 11 Yes 1000ug Take 1,000 mcg by mouth. [facility] ascorbic acid, vitamin C, (VITAMIN C) 500 mg tablet 01-26 21:44: 11 Yes 500mg Take 500 mg by mouth daily. [facility] docusate (COLACE) 100 mg capsule 01-26 21:44: 11 Yes 100mg Take 100 mg by mouth daily. [facility] leuprolide acetate 22.5 mg injection 01-26 21:44: 11 Yes 22.5mg inject 22.5 mg under the skin every 3 (three) months. [facility] budesonide- formoteroL 160-4.5 mcg/actuati on inhaler 01-26 21:44: 11 Yes 2{puff} Inhale 2 Puffs as needed. [facility] nettle leaf (NETTLE, STINGING MISC) 01-26 21:44: 11 Yes 1 TAB-CAP/M2 . [facility] vit B complex no.12/niaci n,B3, (VITAMIN B COMPLEX NO.12-NIACI N ORAL) 01-26 21:44: 11 Yes 1000ug Take 1,000 mcg by mouth. [facility] ascorbic acid, vitamin C, (VITAMIN C) 500 mg tablet 01-26 21:44: 11 Yes 500mg Take 500 mg by mouth daily. [facility] docusate (COLACE) 100 mg capsule 01-26 21:44: 11 Yes 100mg Take 100 mg by mouth daily. [facility] leuprolide acetate 22.5 mg injection 01-26 21:44: 11 Yes 22.5mg inject 22.5 mg under the skin every 3 (three) months. [facility] budesonide- formoteroL 160-4.5 mcg/actuati on inhaler 01-26 21:44: 11 Yes 2{puff} Inhale 2 Puffs as needed. [facility] nettle leaf (NETTLE, STINGING MISC) 01-26 21:44: 11 Yes 1 TAB-CAP/M2 . [facility] vit B complex no.12/niaci n,B3, (VITAMIN B COMPLEX NO.12-NIACI N ORAL) 01-26 21:44: 11 Yes 1000ug Take 1,000 mcg by mouth. [facility] ascorbic acid, vitamin C, (VITAMIN C) 500 mg tablet 01-26 21:44: 11 Yes 500mg Take 500 mg by mouth daily. [facility] docusate (COLACE) 100 mg capsule 01-26 21:44: 11 Yes 100mg Take 100 mg by mouth daily. [facility] leuprolide acetate 22.5 mg injection 01-26 21:44: 11 Yes 22.5mg inject 22.5 mg under the skin every 3 (three) months. [facility] budesonide- formoteroL 160-4.5 mcg/actuati on inhaler 01-26 21:44: 11 Yes 2{puff} Inhale 2 Puffs as needed. [facility] nettle leaf (NETTLE, STINGING MISC) 01-26 21:44: 11 Yes 1 TAB-CAP/M2 . [facility] vit B complex no.12/niaci n,B3, (VITAMIN B COMPLEX NO.12-NIACI N ORAL) 01-26 21:44: 11 Yes 1000ug Take 1,000 mcg by mouth. [facility] ascorbic acid, vitamin C, (VITAMIN C) 500 mg tablet 01-26 21:44: 11 Yes 500mg Take 500 mg by mouth daily. [facility] docusate (COLACE) 100 mg capsule 01-26 21:44: 11 Yes 100mg Take 100 mg by mouth daily. [facility] leuprolide acetate 22.5 mg injection 01-26 21:44: 11 Yes 22.5mg inject 22.5 mg under the skin every 3 (three) months. [facility] budesonide- formoteroL 160-4.5 mcg/actuati on inhaler 01-26 21:44: 11 Yes 2{puff} Inhale 2 Puffs as needed. [facility] nettle leaf (NETTLE, STINGING MISC) 01-26 21:44: 11 Yes 1 TAB-CAP/M2 . [facility] vit B complex no.12/niaci n,B3, (VITAMIN B COMPLEX NO.12-NIACI N ORAL) 01-26 21:44: 11 Yes 1000ug Take 1,000 mcg by mouth. [facility] ascorbic acid, vitamin C, (VITAMIN C) 500 mg tablet 01-26 21:44: 11 Yes 500mg Take 500 mg by mouth daily. [facility] docusate (COLACE) 100 mg capsule 01-26 21:44: 11 Yes 100mg Take 100 mg by mouth daily. [facility] leuprolide acetate 22.5 mg injection 01-26 21:44: 11 Yes 22.5mg inject 22.5 mg under the skin every 3 (three) months. [facility] budesonide- formoteroL 160-4.5 mcg/actuati on inhaler 01-26 21:44: 11 Yes 2{puff} Inhale 2 Puffs as needed. [facility] nettle leaf (NETTLE, STINGING MISC) 01-26 21:44: 11 Yes 1 TAB-CAP/M2 . [facility] vit B complex no.12/niaci n,B3, (VITAMIN B COMPLEX NO.12-NIACI N ORAL) 01-26 21:44: 11 Yes 1000ug Take 1,000 mcg by mouth. [facility] ascorbic acid, vitamin C, (VITAMIN C) 500 mg tablet 01-26 21:44: 11 Yes 500mg Take 500 mg by mouth daily. [facility] docusate (COLACE) 100 mg capsule 01-26 21:44: 11 Yes 100mg Take 100 mg by mouth daily. [facility] leuprolide acetate 22.5 mg injection 01-26 21:44: 11 Yes 22.5mg inject 22.5 mg under the skin every 3 (three) months. [facility] budesonide- formoteroL 160-4.5 mcg/actuati on inhaler 01-26 21:44: 11 Yes 2{puff} Inhale 2 Puffs as needed. [facility] nettle leaf (NETTLE, STINGING MISC) 01-26 21:44: 11 Yes 1 TAB-CAP/M2 . [facility] vit B complex no.12/niaci n,B3, (VITAMIN B COMPLEX NO.12-NIACI N ORAL) 01-26 21:44: 11 Yes 1000ug Take 1,000 mcg by mouth. [facility] ascorbic acid, vitamin C, (VITAMIN C) 500 mg tablet 01-26 21:44: 11 Yes 500mg Take 500 mg by mouth daily. [facility] docusate (COLACE) 100 mg capsule 01-26 21:44: 11 Yes 100mg Take 100 mg by mouth daily. [facility] leuprolide acetate 22.5 mg injection 01-26 21:44: 11 Yes 22.5mg inject 22.5 mg under the skin every 3 (three) months. [facility] budesonide- formoteroL 160-4.5 mcg/actuati on inhaler 01-26 21:44: 11 Yes 2{puff} Inhale 2 Puffs as needed. [facility] nettle leaf (NETTLE, STINGING MISC) 01-26 21:44: 11 Yes 1 TAB-CAP/M2 . [facility] vit B complex no.12/niaci n,B3, (VITAMIN B COMPLEX NO.12-NIACI N ORAL) 01-26 21:44: 11 Yes 1000ug Take 1,000 mcg by mouth. [facility] ascorbic acid, vitamin C, (VITAMIN C) 500 mg tablet 01-26 21:44: 11 Yes 500mg Take 500 mg by mouth daily. [facility] docusate (COLACE) 100 mg capsule 01-26 21:44: 11 Yes 100mg Take 100 mg by mouth daily. [facility] leuprolide acetate 22.5 mg injection 01-26 21:44: 11 Yes 22.5mg inject 22.5 mg under the skin every 3 (three) months. [facility] budesonide- formoteroL 160-4.5 mcg/actuati on inhaler 01-26 21:44: 11 Yes 2{puff} Inhale 2 Puffs as needed. [facility] nettle leaf (NETTLE, STINGING MISC) 01-26 21:44: 11 Yes 1 TAB-CAP/M2 . [facility] vit B complex no.12/niaci n,B3, (VITAMIN B COMPLEX NO.12-NIACI N ORAL) 01-26 21:44: 11 Yes 1000ug Take 1,000 mcg by mouth. [facility] ascorbic acid, vitamin C, (VITAMIN C) 500 mg tablet 01-26 21:44: 11 Yes 500mg Take 500 mg by mouth daily. [facility] docusate (COLACE) 100 mg capsule 01-26 21:44: 11 Yes 100mg Take 100 mg by mouth daily. [facility] leuprolide acetate 22.5 mg injection 01-26 21:44: 11 Yes 22.5mg inject 22.5 mg under the skin every 3 (three) months. [facility] budesonide- formoteroL 160-4.5 mcg/actuati on inhaler 01-26 21:44: 11 Yes 2{puff} Inhale 2 Puffs as needed. [facility] nettle leaf (NETTLE, STINGING MISC) 01-26 21:44: 11 Yes 1 TAB-CAP/M2 . [facility] vit B complex no.12/niaci n,B3, (VITAMIN B COMPLEX NO.12-NIACI N ORAL) 01-26 21:44: 11 Yes 1000ug Take 1,000 mcg by mouth. [facility] ascorbic acid, vitamin C, (VITAMIN C) 500 mg tablet 01-26 21:44: 11 Yes 500mg Take 500 mg by mouth daily. [facility] docusate (COLACE) 100 mg capsule 01-26 21:44: 11 Yes 100mg Take 100 mg by mouth daily. [facility] leuprolide acetate 22.5 mg injection 01-26 21:44: 11 Yes 22.5mg inject 22.5 mg under the skin every 3 (three) months. [facility] budesonide- formoteroL 160-4.5 mcg/actuati on inhaler 01-26 21:44: 11 Yes 2{puff} Inhale 2 Puffs as needed. [facility] nettle leaf (NETTLE, STINGING MISC) 01-26 21:44: 11 Yes 1 TAB-CAP/M2 . [facility] vit B complex no.12/niaci n,B3, (VITAMIN B COMPLEX NO.12-NIACI N ORAL) 01-26 21:44: 11 Yes 1000ug Take 1,000 mcg by mouth. [facility] ascorbic acid, vitamin C, (VITAMIN C) 500 mg tablet 01-26 21:44: 11 Yes 500mg Take 500 mg by mouth daily. [facility] docusate (COLACE) 100 mg capsule 01-26 21:44: 11 Yes 100mg Take 100 mg by mouth daily. [facility] leuprolide acetate 22.5 mg injection 01-26 21:44: 11 Yes 22.5mg inject 22.5 mg under the skin every 3 (three) months. [facility] budesonide- formoteroL 160-4.5 mcg/actuati on inhaler 01-26 21:44: 11 Yes 2{puff} Inhale 2 Puffs as needed. [facility] nettle leaf (NETTLE, STINGING MISC) 01-26 21:44: 11 Yes 1 TAB-CAP/M2 . [facility] vit B complex no.12/niaci n,B3, (VITAMIN B COMPLEX NO.12-NIACI N ORAL) 01-26 21:44: 11 Yes 1000ug Take 1,000 mcg by mouth. [facility] ascorbic acid, vitamin C, (VITAMIN C) 500 mg tablet 01-26 21:44: 11 Yes 500mg Take 500 mg by mouth daily. [facility] docusate (COLACE) 100 mg capsule 01-26 21:44: 11 Yes 100mg Take 100 mg by mouth daily. [facility] leuprolide acetate 22.5 mg injection 01-26 21:44: 11 Yes 22.5mg inject 22.5 mg under the skin every 3 (three) months. [facility] budesonide- formoteroL 160-4.5 mcg/actuati on inhaler 01-26 21:44: 11 Yes 2{puff} Inhale 2 Puffs as needed. [facility] nettle leaf (NETTLE, STINGING MISC) 01-26 21:44: 11 Yes 1 TAB-CAP/M2 . [facility] vit B complex no.12/niaci n,B3, (VITAMIN B COMPLEX NO.12-NIACI N ORAL) 01-26 21:44: 11 Yes 1000ug Take 1,000 mcg by mouth. [facility] ascorbic acid, vitamin C, (VITAMIN C) 500 mg tablet 01-26 21:44: 11 Yes 500mg Take 500 mg by mouth daily. [facility] docusate (COLACE) 100 mg capsule 01-26 21:44: 11 Yes 100mg Take 100 mg by mouth daily. [facility] leuprolide acetate 22.5 mg injection 01-26 21:44: 11 Yes 22.5mg inject 22.5 mg under the skin every 3 (three) months. [facility] budesonide- formoteroL 160-4.5 mcg/actuati on inhaler 01-26 21:44: 11 Yes 2{puff} Inhale 2 Puffs as needed. [facility] nettle leaf (NETTLE, STINGING MISC) 01-26 21:44: 11 Yes 1 TAB-CAP/M2 . [facility] vit B complex no.12/niaci n,B3, (VITAMIN B COMPLEX NO.12-NIACI N ORAL) 01-26 21:44: 11 Yes 1000ug Take 1,000 mcg by mouth. [facility] ascorbic acid, vitamin C, (VITAMIN C) 500 mg tablet 01-26 21:44: 11 Yes 500mg Take 500 mg by mouth daily. [facility] docusate (COLACE) 100 mg capsule 01-26 21:44: 11 Yes 100mg Take 100 mg by mouth daily. [facility] leuprolide acetate 22.5 mg injection 01-26 21:44: 11 Yes 22.5mg inject 22.5 mg under the skin every 3 (three) months. [facility] budesonide- formoteroL 160-4.5 mcg/actuati on inhaler 01-26 21:44: 11 Yes 2{puff} Inhale 2 Puffs as needed. [facility] nettle leaf (NETTLE, STINGING MISC) 01-26 21:44: 11 Yes 1 TAB-CAP/M2 . [facility] vit B complex no.12/niaci n,B3, (VITAMIN B COMPLEX NO.12-NIACI N ORAL) 01-26 21:44: 11 Yes 1000ug Take 1,000 mcg by mouth. [facility] ascorbic acid, vitamin C, (VITAMIN C) 500 mg tablet 01-26 21:44: 11 Yes 500mg Take 500 mg by mouth daily. [facility] docusate (COLACE) 100 mg capsule 01-26 21:44: 11 Yes 100mg Take 100 mg by mouth daily. [facility] leuprolide acetate 22.5 mg injection 01-26 21:44: 11 Yes 22.5mg inject 22.5 mg under the skin every 3 (three) months. [facility] budesonide- formoteroL 160-4.5 mcg/actuati on inhaler 01-26 21:44: 11 Yes 2{puff} Inhale 2 Puffs as needed. [facility] nettle leaf (NETTLE, STINGING MISC) 01-26 21:44: 11 Yes 1 TAB-CAP/M2 . [facility] no.12/niaci n,B3, (VITAMIN B COMPLEX NO.12-NIACI N ORAL) 01-26 21:44: 11 Yes 1000ug Take 1,000 mcg by mouth. [facility] ascorbic acid, vitamin C, (VITAMIN C) 500 mg tablet 01-26 21:44: 11 Yes 500mg Take 500 mg by mouth daily. [facility] docusate (COLACE) 100 mg capsule 01-26 21:44: 11 Yes 100mg Take 100 mg by mouth daily. [facility] leuprolide acetate 22.5 mg injection 01-26 21:44: 11 Yes 22.5mg inject 22.5 mg under the skin every 3 (three) months. [facility] bud[facility]- formoteroL 160-4.5 mcg/actuati on inhaler 01-26 21:44: 11 Yes 2{puff} Inhale 2 Puffs as needed. [facility] nettle leaf (NETTLE, STINGING MISC) 01-26 21:44: 11 Yes 1 TAB-CAP/M2 . [facility] vit B complex no.12/niaci n,B3, (VITAMIN B COMPLEX NO.12-NIACI N ORAL) 01-26 21:44: 11 Yes 1000ug Take 1,000 mcg by mouth. [facility] ascorbic acid, vitamin C, (VITAMIN C) 500 mg tablet 01-26 21:44: 11 Yes 500mg Take 500 mg by mouth daily. [facility] docusate (COLACE) 100 mg capsule 01-26 21:44: 11 Yes 100mg Take 100 mg by mouth daily. [facility] leuprolide acetate 22.5 mg injection 01-26 21:44: 11 Yes 22.5mg inject 22.5 mg under the skin every 3 (three) months. [facility] bud[facility]- formoteroL 160-4.5 mcg/actuati on inhaler 01-26 21:44: 11 Yes 2{puff} Inhale 2 Puffs as needed. [facility] nettle leaf (NETTLE, STINGING MISC) 01-26 21:44: 11 Yes 1 TAB-CAP/M2 . [facility] vit B complex no.12/niaci n,B3, (VITAMIN B COMPLEX NO.12-NIACI N ORAL) 01-26 21:44: 11 Yes 1000ug Take 1,000 mcg by mouth. [facility] ascorbic acid, vitamin C, (VITAMIN C) 500 mg tablet 01-26 21:44: 11 Yes 500mg Take 500 mg by mouth daily. [facility] docusate (COLACE) 100 mg capsule 01-26 21:44: 11 Yes 100mg Take 100 mg by mouth daily. [facility] leuprolide acetate 22.5 mg injection 01-26 21:44: 11 Yes 22.5mg inject 22.5 mg under the skin every 3 (three) months. [facility] budesonide- formoteroL 160-4.5 mcg/actuati on inhaler 01-26 21:44: 11 Yes 2{puff} Inhale 2 Puffs as needed. [facility] nettle leaf (NETTLE, STINGING MISC) 01-26 21:44: 11 Yes 1 TAB-CAP/M2 . [facility] vit B complex no.12/niaci n,B3, (VITAMIN B COMPLEX NO.12-NIACI N ORAL) 01-26 21:44: 11 Yes 1000ug Take 1,000 mcg by mouth. [facility] ascorbic acid, vitamin C, (VITAMIN C) 500 mg tablet 01-26 21:44: 11 Yes 500mg Take 500 mg by mouth daily. [facility] docusate (COLACE) 100 mg capsule 01-26 21:44: 11 Yes 100mg Take 100 mg by mouth daily. [facility] leuprolide acetate 22.5 mg injection 01-26 21:44: 11 Yes 22.5mg inject 22.5 mg under the skin every 3 (three) months. [facility]- formoteroL 160-4.5 mcg/actuati on inhaler 01-26 21:44: 11 Yes 2{puff} Inhale 2 Puffs as needed. [facility] (NETTLE, STINGING MISC) 01-26 21:44: 11 Yes 1 TAB-CAP/M2 . [facility] vit B complex no.12/niaci n,B3, (VITAMIN B COMPLEX NO.12-NIACI N ORAL) 01-26 21:44: 11 Yes 1000ug Take 1,000 mcg by mouth. [facility] ascorbic acid, vitamin C, (VITAMIN C) 500 mg tablet 01-26 21:44: 11 Yes 500mg Take 500 mg by mouth daily. [facility] docusate (COLACE) 100 mg capsule 01-26 21:44: 11 Yes 100mg Take 100 mg by mouth daily. [facility] leuprolide acetate 22.5 mg injection 01-26 21:44: 11 Yes 22.5mg inject 22.5 mg under the skin every 3 (three) months. [facility] budesonide- formoteroL 160-4.5 mcg/actuati on inhaler 01-26 21:44: 11 Yes 2{puff} Inhale 2 Puffs as needed. [facility] nettle leaf (NETTLE, STINGING MISC) 01-26 21:44: 11 Yes 1 TAB-CAP/M2 . [facility] vit B complex no.12/niaci n,B3, (VITAMIN B COMPLEX NO.12-NIACI N ORAL) 01-26 21:44: 11 Yes 1000ug Take 1,000 mcg by mouth. [facility] ascorbic acid, vitamin C, (VITAMIN C) 500 mg tablet 01-26 21:44: 11 Yes 500mg Take 500 mg by mouth daily. [facility] docusate (COLACE) 100 mg capsule 01-26 21:44: 11 Yes 100mg Take 100 mg by mouth daily. [facility] leuprolide acetate 22.5 mg injection 01-26 21:44: 11 Yes 22.5mg inject 22.5 mg under the skin every 3 (three) months. [facility] budesonide- formoteroL 160-4.5 mcg/actuati on inhaler 01-26 21:44: 11 Yes 2{puff} Inhale 2 Puffs as needed. [facility] nettle leaf (NETTLE, STINGING MISC) 01-26 21:44: 11 Yes 1 TAB-CAP/M2 . [facility] vit B complex no.12/niaci n,B3, (VITAMIN B COMPLEX NO.12-NIACI N ORAL) 01-26 21:44: 11 Yes 1000ug Take 1,000 mcg by mouth. [facility] ascorbic acid, vitamin C, (VITAMIN C) 500 mg tablet 01-26 21:44: 11 Yes 500mg Take 500 mg by mouth daily. [facility] docusate (COLACE) 100 mg capsule 01-26 21:44: 11 Yes 100mg Take 100 mg by mouth daily. [facility] leuprolide acetate 22.5 mg injection 01-26 21:44: 11 Yes 22.5mg inject 22.5 mg under the skin every 3 (three) months. [facility] budesonide- formoteroL 160-4.5 mcg/actuati on inhaler 01-26 21:44: 11 Yes 2{puff} Inhale 2 Puffs as needed. [facility] nettle leaf (NETTLE, STINGING MISC) 01-26 21:44: 11 Yes 1 TAB-CAP/M2 . [facility] vit B complex no.12/niaci n,B3, (VITAMIN B COMPLEX NO.12-NIACI N ORAL) 01-26 21:44: 11 Yes 1000ug Take 1,000 mcg by mouth. [facility] ascorbic acid, vitamin C, (VITAMIN C) 500 mg tablet 01-26 21:44: 11 Yes 500mg Take 500 mg by mouth daily. [facility] docusate (COLACE) 100 mg capsule 01-26 21:44: 11 Yes 100mg Take 100 mg by mouth daily. [facility] leuprolide acetate 22.5 mg injection 01-26 21:44: 11 Yes 22.5mg inject 22.5 mg under the skin every 3 (three) months. [facility]ide- formoteroL 160-4.5 mcg/actuati on inhaler 01-26 21:44: 11 Yes 2{puff} Inhale 2 Puffs as needed. [facility] nettle leaf (NETTLE, STINGING MISC) 01-26 21:44: 11 Yes 1 TAB-CAP/M2 . [facility] vit B complex no.12/niaci n,B3, (VITAMIN B COMPLEX NO.12-NIACI N ORAL) 01-26 21:44: 11 Yes 1000ug Take 1,000 mcg by mouth. [facility] ascorbic acid, vitamin C, (VITAMIN C) 500 mg tablet 01-26 21:44: 11 Yes 500mg Take 500 mg by mouth daily. [facility] docusate (COLACE) 100 mg capsule 01-26 21:44: 11 Yes 100mg Take 100 mg by mouth daily. [facility] leuprolide acetate 22.5 mg injection 01-26 21:44: 11 Yes 22.5mg inject 22.5 mg under the skin every 3 (three) months. [facility] budesonide- formoteroL 160-4.5 mcg/actuati on inhaler 01-26 21:44: 11 Yes 2{puff} Inhale 2 Puffs as needed. [facility] nettle leaf (NETTLE, STINGING MISC) 01-26 21:44: 11 Yes 1 TAB-CAP/M2 . [facility] vit B complex no.12/niaci n,B3, (VITAMIN B COMPLEX NO.12-NIACI N ORAL) 01-26 21:44: 11 Yes 1000ug Take 1,000 mcg by mouth. [facility] ascorbic acid, vitamin C, (VITAMIN C) 500 mg tablet 01-26 21:44: 11 Yes 500mg Take 500 mg by mouth daily. [facility] docusate (COLACE) 100 mg capsule 01-26 21:44: 11 Yes 100mg Take 100 mg by mouth daily. [facility] leuprolide acetate 22.5 mg injection 01-26 21:44: 11 Yes 22.5mg inject 22.5 mg under the skin every 3 (three) months. [facility] budesonide- formoteroL 160-4.5 mcg/actuati on inhaler 01-26 21:44: 11 Yes 2{puff} Inhale 2 Puffs as needed. [facility] nettle leaf (NETTLE, STINGING MISC) 01-26 21:44: 11 Yes 1 TAB-CAP/M2 . [facility] vit B complex no.12/niaci n,B3, (VITAMIN B COMPLEX NO.12-NIACI N ORAL) 01-26 21:44: 11 Yes 1000ug Take 1,000 mcg by mouth. [facility] ascorbic acid, vitamin C, (VITAMIN C) 500 mg tablet 01-26 21:44: 11 Yes 500mg Take 500 mg by mouth daily. [facility] docusate (COLACE) 100 mg capsule 01-26 21:44: 11 Yes 100mg Take 100 mg by mouth daily. [facility] leuprolide acetate 22.5 mg injection 01-26 21:44: 11 Yes 22.5mg inject 22.5 mg under the skin every 3 (three) months. [facility]- formoteroL 160-4.5 mcg/actuati on inhaler 01-26 21:44: 11 Yes 2{puff} Inhale 2 Puffs as needed. [facility] nettle leaf (NETTLE, STINGING MISC) 01-26 21:44: 11 Yes 1 TAB-CAP/M2 . [facility] vit B complex no.12/niaci n,B3, (VITAMIN B COMPLEX NO.12-NIACI N ORAL) 01-26 21:44: 11 Yes 1000ug Take 1,000 mcg by mouth. [facility] ascorbic acid, vitamin C, (VITAMIN C) 500 mg tablet 01-26 21:44: 11 Yes 500mg Take 500 mg by mouth daily. [facility] docusate (COLACE) 100 mg capsule 01-26 21:44: 11 Yes 100mg Take 100 mg by mouth daily. [facility] leuprolide acetate 22.5 mg injection 01-26 21:44: 11 Yes 22.5mg inject 22.5 mg under the skin every 3 (three) months. [facility] budesonide- formoteroL 160-4.5 mcg/actuati on inhaler 01-26 21:44: 11 Yes 2{puff} Inhale 2 Puffs as needed. [facility] nettle leaf (NETTLE, STINGING MISC) 01-26 21:44: 11 Yes 1 TAB-CAP/M2 . [facility] vit B complex no.12/niaci n,B3, (VITAMIN B COMPLEX NO.12-NIACI N ORAL) 01-26 21:44: 11 Yes 1000ug Take 1,000 mcg by mouth. [facility] ascorbic acid, vitamin C, (VITAMIN C) 500 mg tablet 01-26 21:44: 11 Yes 500mg Take 500 mg by mouth daily. [facility] docusate (COLACE) 100 mg capsule 01-26 21:44: 11 Yes 100mg Take 100 mg by mouth daily. [facility] leuprolide acetate 22.5 mg injection 01-26 21:44: 11 Yes 22.5mg inject 22.5 mg under the skin every 3 (three) months. [facility] budesonide- formoteroL 160-4.5 mcg/actuati on inhaler 01-26 21:44: 11 Yes 2{puff} Inhale 2 Puffs as needed. [facility] nettle leaf (NETTLE, STINGING MISC) 01-26 21:44: 11 Yes 1 TAB-CAP/M2 . [facility] vit B complex no.12/niaci n,B3, (VITAMIN B COMPLEX NO.12-NIACI N ORAL) 01-26 21:44: 11 Yes 1000ug Take 1,000 mcg by mouth. [facility] ascorbic acid, vitamin C, (VITAMIN C) 500 mg tablet 01-26 21:44: 11 Yes 500mg Take 500 mg by mouth daily. [facility] docusate (COLACE) 100 mg capsule 01-26 21:44: 11 Yes 100mg Take 100 mg by mouth daily. [facility] leuprolide acetate 22.5 mg injection 01-26 21:44: 11 Yes 22.5mg inject 22.5 mg under the skin every 3 (three) months. [facility] budesonide- formoteroL 160-4.5 mcg/actuati on inhaler 01-26 21:44: 11 Yes 2{puff} Inhale 2 Puffs as needed. [facility] nettle leaf (NETTLE, STINGING MISC) 01-26 21:44: 11 Yes 1 TAB-CAP/M2 . [facility] vit B complex no.12/niaci n,B3, (VITAMIN B COMPLEX NO.12-NIACI N ORAL) 01-26 21:44: 11 Yes 1000ug Take 1,000 mcg by mouth. [facility] ascorbic acid, vitamin C, (VITAMIN C) 500 mg tablet 01-26 21:44: 11 Yes 500mg Take 500 mg by mouth daily. [facility] docusate (COLACE) 100 mg capsule 01-26 21:44: 11 Yes 100mg Take 100 mg by mouth daily. [facility] leuprolide acetate 22.5 mg injection 01-26 21:44: 11 Yes 22.5mg inject 22.5 mg under the skin every 3 (three) months. [facility] budesonide- formoteroL 160-4.5 mcg/actuati on inhaler 01-26 21:44: 11 Yes 2{puff} Inhale 2 Puffs as needed. [facility] nettle leaf (NETTLE, STINGING MISC) 01-26 21:44: 11 Yes 1 TAB-CAP/M2 . [facility] vit B complex no.12/niaci n,B3, (VITAMIN B COMPLEX NO.12-NIACI N ORAL) 01-26 21:44: 11 Yes 1000ug Take 1,000 mcg by mouth. [facility] ascorbic acid, vitamin C, (VITAMIN C) 500 mg tablet 01-26 21:44: 11 Yes 500mg Take 500 mg by mouth daily. [facility] docusate (COLACE) 100 mg capsule 01-26 21:44: 11 Yes 100mg Take 100 mg by mouth daily. [facility] leuprolide acetate 22.5 mg injection 01-26 21:44: 11 Yes 22.5mg inject 22.5 mg under the skin every 3 (three) months. [facility] budesonide- formoteroL 160-4.5 mcg/actuati on inhaler 01-26 21:44: 11 Yes 2{puff} Inhale 2 Puffs as needed. [facility] nettle leaf (NETTLE, STINGING MISC) 01-26 21:44: 11 Yes 1 TAB-CAP/M2 . [facility] vit B complex no.12/niaci n,B3, (VITAMIN B COMPLEX NO.12-NIACI N ORAL) 01-26 21:44: 11 Yes 1000ug Take 1,000 mcg by mouth. [facility] ascorbic acid, vitamin C, (VITAMIN C) 500 mg tablet 01-26 21:44: 11 Yes 500mg Take 500 mg by mouth daily. [facility] docusate (COLACE) 100 mg capsule 01-26 21:44: 11 Yes 100mg Take 100 mg by mouth daily. [facility] leuprolide acetate 22.5 mg injection 01-26 21:44: 11 Yes 22.5mg inject 22.5 mg under the skin every 3 (three) months. [facility] budesonide- formoteroL 160-4.5 mcg/actuati on inhaler 01-26 21:44: 11 Yes 2{puff} Inhale 2 Puffs as needed. [facility] nettle leaf (NETTLE, STINGING MISC) 01-26 21:44: 11 Yes 1 TAB-CAP/M2 . [facility] vit B complex no.12/niaci n,B3, (VITAMIN B COMPLEX NO.12-NIACI N ORAL) 01-26 21:44: 11 Yes 1000ug Take 1,000 mcg by mouth. [facility] ascorbic acid, vitamin C, (VITAMIN C) 500 mg tablet 01-26 21:44: 11 Yes 500mg Take 500 mg by mouth daily. [facility] docusate (COLACE) 100 mg capsule 01-26 21:44: 11 Yes 100mg Take 100 mg by mouth daily. [facility] leuprolide acetate 22.5 mg injection 01-26 21:44: 11 Yes 22.5mg inject 22.5 mg under the skin every 3 (three) months. [facility] budesonide- formoteroL 160-4.5 mcg/actuati on inhaler 01-26 21:44: 11 Yes 2{puff} Inhale 2 Puffs as needed. [facility] nettle leaf (NETTLE, STINGING MISC) 01-26 21:44: 11 Yes 1 TAB-CAP/M2 . [facility] vit B complex no.12/niaci n,B3, (VITAMIN B COMPLEX NO.12-NIACI N ORAL) 01-26 21:44: 11 Yes 1000ug Take 1,000 mcg by mouth. [facility] ascorbic acid, vitamin C, (VITAMIN C) 500 mg tablet 01-26 21:44: 11 Yes 500mg Take 500 mg by mouth daily. [facility] docusate (COLACE) 100 mg capsule 01-26 21:44: 11 Yes 100mg Take 100 mg by mouth daily. [facility] leuprolide acetate 22.5 mg injection 01-26 21:44: 11 Yes 22.5mg inject 22.5 mg under the skin every 3 (three) months. [facility] budesonide- formoteroL 160-4.5 mcg/actuati on inhaler 01-26 21:44: 11 Yes 2{puff} Inhale 2 Puffs as needed. [facility] nettle leaf (NETTLE, STINGING MISC) 01-26 21:44: 11 Yes 1 TAB-CAP/M2 . [facility] vit B complex no.12/niaci n,B3, (VITAMIN B COMPLEX NO.12-NIACI N ORAL) 01-26 21:44: 11 Yes 1000ug Take 1,000 mcg by mouth. [facility] ascorbic acid, vitamin C, (VITAMIN C) 500 mg tablet 01-26 21:44: 11 Yes 500mg Take 500 mg by mouth daily. [facility] docusate (COLACE) 100 mg capsule 01-26 21:44: 11 Yes 100mg Take 100 mg by mouth daily. [facility] leuprolide acetate 22.5 mg injection 01-26 21:44: 11 Yes 22.5mg inject 22.5 mg under the skin every 3 (three) months. [facility] budesonide- formoteroL 160-4.5 mcg/actuati on inhaler 01-26 21:44: 11 Yes 2{puff} Inhale 2 Puffs as needed. [facility] nettle leaf (NETTLE, STINGING MISC) 01-26 21:44: 11 Yes 1 TAB-CAP/M2 . [facility] vit B complex no.12/niaci n,B3, (VITAMIN B COMPLEX NO.12-NIACI N ORAL) 01-26 21:44: 11 Yes 1000ug Take 1,000 mcg by mouth. [facility] ascorbic acid, vitamin C, (VITAMIN C) 500 mg tablet 01-26 21:44: 11 Yes 500mg Take 500 mg by mouth daily. [facility] docusate (COLACE) 100 mg capsule 01-26 21:44: 11 Yes 100mg Take 100 mg by mouth daily. [facility] leuprolide acetate 22.5 mg injection 01-26 21:44: 11 Yes 22.5mg inject 22.5 mg under the skin every 3 (three) months. [facility] budesonide- formoteroL 160-4.5 mcg/actuati on inhaler 01-26 21:44: 11 Yes 2{puff} Inhale 2 Puffs as needed. [facility] nettle leaf (NETTLE, STINGING MISC) 01-26 21:44: 11 Yes 1 TAB-CAP/M2 . [facility] vit B complex no.12/niaci n,B3, (VITAMIN B COMPLEX NO.12-NIACI N ORAL) 01-26 21:44: 11 Yes 1000ug Take 1,000 mcg by mouth. [facility] ascorbic acid, vitamin C, (VITAMIN C) 500 mg tablet 01-26 21:44: 11 Yes 500mg Take 500 mg by mouth daily. [facility] docusate (COLACE) 100 mg capsule 01-26 21:44: 11 Yes 100mg Take 100 mg by mouth daily. [facility] leuprolide acetate 22.5 mg injection 01-26 21:44: 11 Yes 22.5mg inject 22.5 mg under the skin every 3 (three) months. [facility] budesonide- formoteroL 160-4.5 mcg/actuati on inhaler 01-26 21:44: 11 Yes 2{puff} Inhale 2 Puffs as needed. [facility] nettle leaf (NETTLE, STINGING MISC) 01-26 21:44: 11 Yes 1 TAB-CAP/M2 . [facility] vit B complex no.12/niaci n,B3, (VITAMIN B COMPLEX NO.12-NIACI N ORAL) 01-26 21:44: 11 Yes 1000ug Take 1,000 mcg by mouth. [facility] ascorbic acid, vitamin C, (VITAMIN C) 500 mg tablet 01-26 21:44: 11 Yes 500mg Take 500 mg by mouth daily. [facility] docusate (COLACE) 100 mg capsule 01-26 21:44: 11 Yes 100mg Take 100 mg by mouth daily. [facility] leuprolide acetate 22.5 mg injection 01-26 21:44: 11 Yes 22.5mg inject 22.5 mg under the skin every 3 (three) months. [facility] budesonide- formoteroL 160-4.5 mcg/actuati on inhaler 01-26 21:44: 11 Yes 2{puff} Inhale 2 Puffs as needed. [facility] nettle leaf (NETTLE, STINGING MISC) 01-26 21:44: 11 Yes 1 TAB-CAP/M2 . [facility] vit B complex no.12/niaci n,B3, (VITAMIN B COMPLEX NO.12-NIACI N ORAL) 01-26 21:44: 11 Yes 1000ug Take 1,000 mcg by mouth. [facility] ascorbic acid, vitamin C, (VITAMIN C) 500 mg tablet 01-26 21:44: 11 Yes 500mg Take 500 mg by mouth daily. [facility] docusate (COLACE) 100 mg capsule 01-26 21:44: 11 Yes 100mg Take 100 mg by mouth daily. [facility] leuprolide acetate 22.5 mg injection 01-26 21:44: 11 Yes 22.5mg inject 22.5 mg under the skin every 3 (three) months. [facility]- formoteroL 160-4.5 mcg/actuati on inhaler 01-26 21:44: 11 Yes 2{puff} Inhale 2 Puffs as needed. [facility] (NETTLE, STINGING MISC) 01-26 21:44: 11 Yes 1 TAB-CAP/M2 . [facility] vit B complex no.12/niaci n,B3, (VITAMIN B COMPLEX NO.12-NIACI N ORAL) 01-26 21:44: 11 Yes 1000ug Take 1,000 mcg by mouth. [facility] ascorbic acid, vitamin C, (VITAMIN C) 500 mg tablet 01-26 21:44: 11 Yes 500mg Take 500 mg by mouth daily. [facility] docusate (COLACE) 100 mg capsule 01-26 21:44: 11 Yes 100mg Take 100 mg by mouth daily. [facility] leuprolide acetate 22.5 mg injection 01-26 21:44: 11 Yes 22.5mg inject 22.5 mg under the skin every 3 (three) months. [facility] budesonide- formoteroL 160-4.5 mcg/actuati on inhaler 01-26 21:44: 11 Yes 2{puff} Inhale 2 Puffs as needed. [facility] nettle leaf (NETTLE, STINGING MISC) 01-26 21:44: 11 Yes 1 TAB-CAP/M2 . [facility] vit B complex no.12/niaci n,B3, (VITAMIN B COMPLEX NO.12-NIACI N ORAL) 01-26 21:44: 11 Yes 1000ug Take 1,000 mcg by mouth. [facility] ascorbic acid, vitamin C, (VITAMIN C) 500 mg tablet 01-26 21:44: 11 Yes 500mg Take 500 mg by mouth daily. [facility] docusate (COLACE) 100 mg capsule 01-26 21:44: 11 Yes 100mg Take 100 mg by mouth daily. [facility] leuprolide acetate 22.5 mg injection 01-26 21:44: 11 Yes 22.5mg inject 22.5 mg under the skin every 3 (three) months. [facility] budesonide- formoteroL 160-4.5 mcg/actuati on inhaler 01-26 21:44: 11 Yes 2{puff} Inhale 2 Puffs as needed. [facility] nettle leaf (NETTLE, STINGING MISC) 01-26 21:44: 11 Yes 1 TAB-CAP/M2 . [facility] vit B complex no.12/niaci n,B3, (VITAMIN B COMPLEX NO.12-NIACI N ORAL) 01-26 21:44: 11 Yes 1000ug Take 1,000 mcg by mouth. [facility] ascorbic acid, vitamin C, (VITAMIN C) 500 mg tablet 01-26 21:44: 11 Yes 500mg Take 500 mg by mouth daily. [facility] docusate (COLACE) 100 mg capsule 01-26 21:44: 11 Yes 100mg Take 100 mg by mouth daily. [facility] leuprolide acetate 22.5 mg injection 01-26 21:44: 11 Yes 22.5mg inject 22.5 mg under the skin every 3 (three) months. [facility] budesonide- formoteroL 160-4.5 mcg/actuati on inhaler 01-26 21:44: 11 Yes 2{puff} Inhale 2 Puffs as needed. [facility] nettle leaf (NETTLE, STINGING MISC) 01-26 21:44: 11 Yes 1 TAB-CAP/M2 . [facility] vit B complex no.12/niaci n,B3, (VITAMIN B COMPLEX NO.12-NIACI N ORAL) 01-26 21:44: 11 Yes 1000ug Take 1,000 mcg by mouth. [facility] ascorbic acid, vitamin C, (VITAMIN C) 500 mg tablet 01-26 21:44: 11 Yes 500mg Take 500 mg by mouth daily. [facility] docusate (COLACE) 100 mg capsule 01-26 21:44: 11 Yes 100mg Take 100 mg by mouth daily. [facility] leuprolide acetate 22.5 mg injection 01-26 21:44: 11 Yes 22.5mg inject 22.5 mg under the skin every 3 (three) months. [facility] budesonide- formoteroL 160-4.5 mcg/actuati on inhaler 01-26 21:44: 11 Yes 2{puff} Inhale 2 Puffs as needed. [facility] nettle leaf (NETTLE, STINGING MISC) 01-26 21:44: 11 Yes 1 TAB-CAP/M2 . [facility] vit B complex no.12/niaci n,B3, (VITAMIN B COMPLEX NO.12-NIACI N ORAL) 01-26 21:44: 11 Yes 1000ug Take 1,000 mcg by mouth. [facility] ascorbic acid, vitamin C, (VITAMIN C) 500 mg tablet 01-26 21:44: 11 Yes 500mg Take 500 mg by mouth daily. [facility] docusate (COLACE) 100 mg capsule 01-26 21:44: 11 Yes 100mg Take 100 mg by mouth daily. [facility] leuprolide acetate 22.5 mg injection 01-26 21:44: 11 Yes 22.5mg inject 22.5 mg under the skin every 3 (three) months. [facility] budesonide- formoteroL 160-4.5 mcg/actuati on inhaler 01-26 21:44: 11 Yes 2{puff} Inhale 2 Puffs as needed. [facility] nettle leaf (NETTLE, STINGING MISC) 01-26 21:44: 11 Yes 1 TAB-CAP/M2 . [facility] vit B complex no.12/niaci n,B3, (VITAMIN B COMPLEX NO.12-NIACI N ORAL) 01-26 21:44: 11 Yes 1000ug Take 1,000 mcg by mouth. [facility] ascorbic acid, vitamin C, (VITAMIN C) 500 mg tablet 01-26 21:44: 11 Yes 500mg Take 500 mg by mouth daily. [facility] docusate (COLACE) 100 mg capsule 01-26 21:44: 11 Yes 100mg Take 100 mg by mouth daily. [facility] leuprolide acetate 22.5 mg injection 01-26 21:44: 11 Yes 22.5mg inject 22.5 mg under the skin every 3 (three) months. [facility] budesonide- formoteroL 160-4.5 mcg/actuati on inhaler 01-26 21:44: 11 Yes 2{puff} Inhale 2 Puffs as needed. [facility] nettle leaf (NETTLE, STINGING MISC) 01-26 21:44: 11 Yes 1 TAB-CAP/M2 . [facility] vit B complex no.12/niaci n,B3, (VITAMIN B COMPLEX NO.12-NIACI N ORAL) 01-26 21:44: 11 Yes 1000ug Take 1,000 mcg by mouth. [facility] ascorbic acid, vitamin C, (VITAMIN C) 500 mg tablet 01-26 21:44: 11 Yes 500mg Take 500 mg by mouth daily. [facility] docusate (COLACE) 100 mg capsule 01-26 21:44: 11 Yes 100mg Take 100 mg by mouth daily. [facility] leuprolide acetate 22.5 mg injection 01-26 21:44: 11 Yes 22.5mg inject 22.5 mg under the skin every 3 (three) months. [facility] budesonide- formoteroL 160-4.5 mcg/actuati on inhaler 01-26 21:44: 11 Yes 2{puff} Inhale 2 Puffs as needed. [facility] nettle leaf (NETTLE, STINGING MISC) 01-26 21:44: 11 Yes 1 TAB-CAP/M2 . [facility] vit B complex no.12/niaci n,B3, (VITAMIN B COMPLEX NO.12-NIACI N ORAL) 01-26 21:44: 11 Yes 1000ug Take 1,000 mcg by mouth. [facility] ascorbic acid, vitamin C, (VITAMIN C) 500 mg tablet 01-26 21:44: 11 Yes 500mg Take 500 mg by mouth daily. [facility] docusate (COLACE) 100 mg capsule 01-26 21:44: 11 Yes 100mg Take 100 mg by mouth daily. [facility] leuprolide acetate 22.5 mg injection 01-26 21:44: 11 Yes 22.5mg inject 22.5 mg under the skin every 3 (three) months. [facility] budesonide- formoteroL 160-4.5 mcg/actuati on inhaler 01-26 21:44: 11 Yes 2{puff} Inhale 2 Puffs as needed. [facility] nettle leaf (NETTLE, STINGING MISC) 01-26 21:44: 11 Yes 1 TAB-CAP/M2 . [facility] vit B complex no.12/niaci n,B3, (VITAMIN B COMPLEX NO.12-NIACI N ORAL) 01-26 21:44: 11 Yes 1000ug Take 1,000 mcg by mouth. [facility] ascorbic acid, vitamin C, (VITAMIN C) 500 mg tablet 01-26 21:44: 11 Yes 500mg Take 500 mg by mouth daily. [facility] docusate (COLACE) 100 mg capsule 01-26 21:44: 11 Yes 100mg Take 100 mg by mouth daily. [facility] leuprolide acetate 22.5 mg injection 01-26 21:44: 11 Yes 22.5mg inject 22.5 mg under the skin every 3 (three) months. [facility] budesonide- formoteroL 160-4.5 mcg/actuati on inhaler 01-26 21:44: 11 Yes 2{puff} Inhale 2 Puffs as needed. [facility] nettle leaf (NETTLE, STINGING MISC) 01-26 21:44: 11 Yes 1 TAB-CAP/M2 . [facility] vit B complex no.12/niaci n,B3, (VITAMIN B COMPLEX NO.12-NIACI N ORAL) 01-26 21:44: 11 Yes 1000ug Take 1,000 mcg by mouth. [facility] ascorbic acid, vitamin C, (VITAMIN C) 500 mg tablet 01-26 21:44: 11 Yes 500mg Take 500 mg by mouth daily. [facility] docusate (COLACE) 100 mg capsule 01-26 21:44: 11 Yes 100mg Take 100 mg by mouth daily. [facility] leuprolide acetate 22.5 mg injection 01-26 21:44: 11 Yes 22.5mg inject 22.5 mg under the skin every 3 (three) months. [facility] budesonide- formoteroL 160-4.5 mcg/actuati on inhaler 01-26 21:44: 11 Yes 2{puff} Inhale 2 Puffs as needed. [facility] nettle leaf (NETTLE, STINGING MISC) 01-26 21:44: 11 Yes 1 TAB-CAP/M2 . [facility] vit B complex no.12/niaci n,B3, (VITAMIN B COMPLEX NO.12-NIACI N ORAL) 01-26 21:44: 11 Yes 1000ug Take 1,000 mcg by mouth. [facility] ascorbic acid, vitamin C, (VITAMIN C) 500 mg tablet 01-26 21:44: 11 Yes 500mg Take 500 mg by mouth daily. [facility] docusate (COLACE) 100 mg capsule 01-26 21:44: 11 Yes 100mg Take 100 mg by mouth daily. [facility] leuprolide acetate 22.5 mg injection 01-26 21:44: 11 Yes 22.5mg inject 22.5 mg under the skin every 3 (three) months. [facility] budesonide- formoteroL 160-4.5 mcg/actuati on inhaler 01-26 21:44: 11 Yes 2{puff} Inhale 2 Puffs as needed. [facility] nettle leaf (NETTLE, STINGING MISC) 01-26 21:44: 11 Yes 1 TAB-CAP/M2 . [facility] vit B complex no.12/niaci n,B3, (VITAMIN B COMPLEX NO.12-NIACI N ORAL) 01-26 21:44: 11 Yes 1000ug Take 1,000 mcg by mouth. [facility] ascorbic acid, vitamin C, (VITAMIN C) 500 mg tablet 01-26 21:44: 11 Yes 500mg Take 500 mg by mouth daily. [facility] docusate (COLACE) 100 mg capsule 01-26 21:44: 11 Yes 100mg Take 100 mg by mouth daily. [facility] leuprolide acetate 22.5 mg injection 01-26 21:44: 11 Yes 22.5mg inject 22.5 mg under the skin every 3 (three) months. [facility] budesonide- formoteroL 160-4.5 mcg/actuati on inhaler 01-26 21:44: 11 Yes 2{puff} Inhale 2 Puffs as needed. [facility] nettle leaf (NETTLE, STINGING MISC) 01-26 21:44: 11 Yes 1 TAB-CAP/M2 . [facility] vit B complex no.12/niaci n,B3, (VITAMIN B COMPLEX NO.12-NIACI N ORAL) 01-26 21:44: 11 Yes 1000ug Take 1,000 mcg by mouth. [facility] ascorbic acid, vitamin C, (VITAMIN C) 500 mg tablet 01-26 21:44: 11 Yes 500mg Take 500 mg by mouth daily. [facility] docusate (COLACE) 100 mg capsule 01-26 21:44: 11 Yes 100mg Take 100 mg by mouth daily. [facility] leuprolide acetate 22.5 mg injection 01-26 21:44: 11 Yes 22.5mg inject 22.5 mg under the skin every 3 (three) months. [facility] budesonide- formoteroL 160-4.5 mcg/actuati on inhaler 01-26 21:44: 11 Yes 2{puff} Inhale 2 Puffs as needed. [facility] nettle leaf (NETTLE, STINGING MISC) 01-26 21:44: 11 Yes 1 TAB-CAP/M2 . [facility] vit B complex no.12/niaci n,B3, (VITAMIN B COMPLEX NO.12-NIACI N ORAL) 01-26 21:44: 11 Yes 1000ug Take 1,000 mcg by mouth. [facility] ascorbic acid, vitamin C, (VITAMIN C) 500 mg tablet 01-26 21:44: 11 Yes 500mg Take 500 mg by mouth daily. [facility] docusate (COLACE) 100 mg capsule 01-26 21:44: 11 Yes 100mg Take 100 mg by mouth daily. [facility] leuprolide acetate 22.5 mg injection 01-26 21:44: 11 Yes 22.5mg inject 22.5 mg under the skin every 3 (three) months. [facility] budesonide- formoteroL 160-4.5 mcg/actuati on inhaler 01-26 21:44: 11 Yes 2{puff} Inhale 2 Puffs as needed. [facility] nettle leaf (NETTLE, STINGING MISC) 01-26 21:44: 11 Yes 1 TAB-CAP/M2 . [facility] vit B complex no.12/niaci n,B3, (VITAMIN B COMPLEX NO.12-NIACI N ORAL) 01-26 21:44: 11 Yes 1000ug Take 1,000 mcg by mouth. [facility] ascorbic acid, vitamin C, (VITAMIN C) 500 mg tablet 01-26 21:44: 11 Yes 500mg Take 500 mg by mouth daily. [facility] docusate (COLACE) 100 mg capsule 01-26 21:44: 11 Yes 100mg Take 100 mg by mouth daily. [facility] leuprolide acetate 22.5 mg injection 01-26 21:44: 11 Yes 22.5mg inject 22.5 mg under the skin every 3 (three) months. [facility] budesonide- formoteroL 160-4.5 mcg/actuati on inhaler 01-26 21:44: 11 Yes 2{puff} Inhale 2 Puffs as needed. [facility] nettle leaf (NETTLE, STINGING MISC) 01-26 21:44: 11 Yes 1 TAB-CAP/M2 . [facility] vit B complex no.12/niaci n,B3, (VITAMIN B COMPLEX NO.12-NIACI N ORAL) 01-26 21:44: 11 Yes 1000ug Take 1,000 mcg by mouth. [facility] ascorbic acid, vitamin C, (VITAMIN C) 500 mg tablet 01-26 21:44: 11 Yes 500mg Take 500 mg by mouth daily. [facility] docusate (COLACE) 100 mg capsule 01-26 21:44: 11 Yes 100mg Take 100 mg by mouth daily. [facility] leuprolide acetate 22.5 mg injection 01-26 21:44: 11 Yes 22.5mg inject 22.5 mg under the skin every 3 (three) months. [facility] budesonide- formoteroL 160-4.5 mcg/actuati on inhaler 01-26 21:44: 11 Yes 2{puff} Inhale 2 Puffs as needed. [facility] nettle leaf (NETTLE, STINGING MISC) 01-26 21:44: 11 Yes 1 TAB-CAP/M2 . [facility] vit B complex no.12/niaci n,B3, (VITAMIN B COMPLEX NO.12-NIACI N ORAL) 01-26 21:44: 11 Yes 1000ug Take 1,000 mcg by mouth. [facility] ascorbic acid, vitamin C, (VITAMIN C) 500 mg tablet 01-26 21:44: 11 Yes 500mg Take 500 mg by mouth daily. [facility] docusate (COLACE) 100 mg capsule 01-26 21:44: 11 Yes 100mg Take 100 mg by mouth daily. [facility] leuprolide acetate 22.5 mg injection 01-26 21:44: 11 Yes 22.5mg inject 22.5 mg under the skin every 3 (three) months. [facility] budesonide- formoteroL 160-4.5 mcg/actuati on inhaler 01-26 21:44: 11 Yes 2{puff} Inhale 2 Puffs as needed. [facility] nettle leaf (NETTLE, STINGING MISC) 01-26 21:44: 11 Yes 1 TAB-CAP/M2 . [facility] vit B complex no.12/niaci n,B3, (VITAMIN B COMPLEX NO.12-NIACI N ORAL) 01-26 21:44: 11 Yes 1000ug Take 1,000 mcg by mouth. [facility] ascorbic acid, vitamin C, (VITAMIN C) 500 mg tablet 01-26 21:44: 11 Yes 500mg Take 500 mg by mouth daily. [facility] docusate (COLACE) 100 mg capsule 01-26 21:44: 11 Yes 100mg Take 100 mg by mouth daily. [facility] leuprolide acetate 22.5 mg injection 01-26 21:44: 11 Yes 22.5mg inject 22.5 mg under the skin every 3 (three) months. [facility] budesonide- formoteroL 160-4.5 mcg/actuati on inhaler 01-26 21:44: 11 Yes 2{puff} Inhale 2 Puffs as needed. [facility] nettle leaf (NETTLE, STINGING MISC) 01-26 21:44: 11 Yes 1 TAB-CAP/M2 . [facility] vit B complex no.12/niaci n,B3, (VITAMIN B COMPLEX NO.12-NIACI N ORAL) 01-26 21:44: 11 Yes 1000ug Take 1,000 mcg by mouth. [facility] ascorbic acid, vitamin C, (VITAMIN C) 500 mg tablet 01-26 21:44: 11 Yes 500mg Take 500 mg by mouth daily. [facility] docusate (COLACE) 100 mg capsule 01-26 21:44: 11 Yes 100mg Take 100 mg by mouth daily. [facility] leuprolide acetate 22.5 mg injection 01-26 21:44: 11 Yes 22.5mg inject 22.5 mg under the skin every 3 (three) months. [facility] budesonide- formoteroL 160-4.5 mcg/actuati on inhaler 01-26 21:44: 11 Yes 2{puff} Inhale 2 Puffs as needed. [facility] nettle leaf (NETTLE, STINGING MISC) 01-26 21:44: 11 Yes 1 TAB-CAP/M2 . [facility] vit B complex no.12/niaci n,B3, (VITAMIN B COMPLEX NO.12-NIACI N ORAL) 01-26 21:44: 11 Yes 1000ug Take 1,000 mcg by mouth. [facility] ascorbic acid, vitamin C, (VITAMIN C) 500 mg tablet 01-26 21:44: 11 Yes 500mg Take 500 mg by mouth daily. [facility] docusate (COLACE) 100 mg capsule 01-26 21:44: 11 Yes 100mg Take 100 mg by mouth daily. [facility] leuprolide acetate 22.5 mg injection 01-26 21:44: 11 Yes 22.5mg inject 22.5 mg under the skin every 3 (three) months. [facility] budesonide- formoteroL 160-4.5 mcg/actuati on inhaler 01-26 21:44: 11 Yes 2{puff} Inhale 2 Puffs as needed. [facility] nettle leaf (NETTLE, STINGING MISC) 01-26 21:44: 11 Yes 1 TAB-CAP/M2 . [facility] vit B complex no.12/niaci n,B3, (VITAMIN B COMPLEX NO.12-NIACI N ORAL) 01-26 21:44: 11 Yes 1000ug Take 1,000 mcg by mouth. [facility] ascorbic acid, vitamin C, (VITAMIN C) 500 mg tablet 01-26 21:44: 11 Yes 500mg Take 500 mg by mouth daily. [facility] docusate (COLACE) 100 mg capsule 01-26 21:44: 11 Yes 100mg Take 100 mg by mouth daily. [facility] leuprolide acetate 22.5 mg injection 01-26 21:44: 11 Yes 22.5mg inject 22.5 mg under the skin every 3 (three) months. [facility] budesonide- formoteroL 160-4.5 mcg/actuati on inhaler 01-26 21:44: 11 Yes 2{puff} Inhale 2 Puffs as needed. [facility] nettle leaf (NETTLE, STINGING MISC) 01-26 21:44: 11 Yes 1 TAB-CAP/M2 . [facility] vit B complex no.12/niaci n,B3, (VITAMIN B COMPLEX NO.12-NIACI N ORAL) 01-26 21:44: 11 Yes 1000ug Take 1,000 mcg by mouth. [facility] ascorbic acid, vitamin C, (VITAMIN C) 500 mg tablet 01-26 21:44: 11 Yes 500mg Take 500 mg by mouth daily. [facility] docusate (COLACE) 100 mg capsule 01-26 21:44: 11 Yes 100mg Take 100 mg by mouth daily. [facility] leuprolide acetate 22.5 mg injection 01-26 21:44: 11 Yes 22.5mg inject 22.5 mg under the skin every 3 (three) months. [facility] budesonide- formoteroL 160-4.5 mcg/actuati on inhaler 01-26 21:44: 11 Yes 2{puff} Inhale 2 Puffs as needed. [facility] nettle leaf (NETTLE, STINGING MISC) 01-26 21:44: 11 Yes 1 TAB-CAP/M2 . [facility] vit B complex no.12/niaci n,B3, (VITAMIN B COMPLEX NO.12-NIACI N ORAL) 01-26 21:44: 11 Yes 1000ug Take 1,000 mcg by mouth. [facility] ascorbic acid, vitamin C, (VITAMIN C) 500 mg tablet 01-26 21:44: 11 Yes 500mg Take 500 mg by mouth daily. [facility] docusate (COLACE) 100 mg capsule 01-26 21:44: 11 Yes 100mg Take 100 mg by mouth daily. [facility] leuprolide acetate 22.5 mg injection 01-26 21:44: 11 Yes 22.5mg inject 22.5 mg under the skin every 3 (three) months. [facility] budesonide- formoteroL 160-4.5 mcg/actuati on inhaler 01-26 21:44: 11 Yes 2{puff} Inhale 2 Puffs as needed. [facility] nettle leaf (NETTLE, STINGING MISC) 01-26 21:44: 11 Yes 1 TAB-CAP/M2 . [facility] vit B complex no.12/niaci n,B3, (VITAMIN B COMPLEX NO.12-NIACI N ORAL) 01-26 21:44: 11 Yes 1000ug Take 1,000 mcg by mouth. [facility] ascorbic acid, vitamin C, (VITAMIN C) 500 mg tablet 01-26 21:44: 11 Yes 500mg Take 500 mg by mouth daily. [facility] docusate (COLACE) 100 mg capsule 01-26 21:44: 11 Yes 100mg Take 100 mg by mouth daily. [facility] leuprolide acetate 22.5 mg injection 01-26 21:44: 11 Yes 22.5mg inject 22.5 mg under the skin every 3 (three) months. [facility] budesonide- formoteroL 160-4.5 mcg/actuati on inhaler 01-26 21:44: 11 Yes 2{puff} Inhale 2 Puffs as needed. [facility] nettle leaf (NETTLE, STINGING MISC) 01-26 21:44: 11 Yes 1 TAB-CAP/M2 . [facility] vit B complex no.12/niaci n,B3, (VITAMIN B COMPLEX NO.12-NIACI N ORAL) 01-26 21:44: 11 Yes 1000ug Take 1,000 mcg by mouth. [facility] ascorbic acid, vitamin C, (VITAMIN C) 500 mg tablet 01-26 21:44: 11 Yes 500mg Take 500 mg by mouth daily. [facility] docusate (COLACE) 100 mg capsule 01-26 21:44: 11 Yes 100mg Take 100 mg by mouth daily. [facility] leuprolide acetate 22.5 mg injection 01-26 21:44: 11 Yes 22.5mg inject 22.5 mg under the skin every 3 (three) months. [facility] budesonide- formoteroL 160-4.5 mcg/actuati on inhaler 01-26 21:44: 11 Yes 2{puff} Inhale 2 Puffs as needed. [facility] nettle leaf (NETTLE, STINGING MISC) 01-26 21:44: 11 Yes 1 TAB-CAP/M2 . [facility] vit B complex no.12/niaci n,B3, (VITAMIN B COMPLEX NO.12-NIACI N ORAL) 01-26 21:44: 11 Yes 1000ug Take 1,000 mcg by mouth. [facility] ascorbic acid, vitamin C, (VITAMIN C) 500 mg tablet 01-26 21:44: 11 Yes 500mg Take 500 mg by mouth daily. [facility] docusate (COLACE) 100 mg capsule 01-26 21:44: 11 Yes 100mg Take 100 mg by mouth daily. [facility] leuprolide acetate 22.5 mg injection 01-26 21:44: 11 Yes 22.5mg inject 22.5 mg under the skin every 3 (three) months. [facility] budesonide- formoteroL 160-4.5 mcg/actuati on inhaler 01-26 21:44: 11 Yes 2{puff} Inhale 2 Puffs as needed. [facility] nettle leaf (NETTLE, STINGING MISC) 01-26 21:44: 11 Yes 1 TAB-CAP/M2 . [facility] vit B complex no.12/niaci n,B3, (VITAMIN B COMPLEX NO.12-NIACI N ORAL) 01-26 21:44: 11 Yes 1000ug Take 1,000 mcg by mouth. [facility] ascorbic acid, vitamin C, (VITAMIN C) 500 mg tablet 01-26 21:44: 11 Yes 500mg Take 500 mg by mouth daily. [facility] docusate (COLACE) 100 mg capsule 01-26 21:44: 11 Yes 100mg Take 100 mg by mouth daily. [facility] leuprolide acetate 22.5 mg injection 01-26 21:44: 11 Yes 22.5mg inject 22.5 mg under the skin every 3 (three) months. [facility] budesonide- formoteroL 160-4.5 mcg/actuati on inhaler 01-26 21:44: 11 Yes 2{puff} Inhale 2 Puffs as needed. [facility] nettle leaf (NETTLE, STINGING MISC) 01-26 21:44: 11 Yes 1 TAB-CAP/M2 . [facility] vit B complex no.12/niaci n,B3, (VITAMIN B COMPLEX NO.12-NIACI N ORAL) 01-26 21:44: 11 Yes 1000ug Take 1,000 mcg by mouth. [facility] ascorbic acid, vitamin C, (VITAMIN C) 500 mg tablet 01-26 21:44: 11 Yes 500mg Take 500 mg by mouth daily. [facility] docusate (COLACE) 100 mg capsule 01-26 21:44: 11 Yes 100mg Take 100 mg by mouth daily. [facility] leuprolide acetate 22.5 mg injection 01-26 21:44: 11 Yes 22.5mg inject 22.5 mg under the skin every 3 (three) months. [facility] budesonide- formoteroL 160-4.5 mcg/actuati on inhaler 01-26 21:44: 11 Yes 2{puff} Inhale 2 Puffs as needed. [facility] nettle leaf (NETTLE, STINGING MISC) 01-26 21:44: 11 Yes 1 TAB-CAP/M2 . [facility] vit B complex no.12/niaci n,B3, (VITAMIN B COMPLEX NO.12-NIACI N ORAL) 01-26 21:44: 11 Yes 1000ug Take 1,000 mcg by mouth. [facility] ascorbic acid, vitamin C, (VITAMIN C) 500 mg tablet 01-26 21:44: 11 Yes 500mg Take 500 mg by mouth daily. [facility] docusate (COLACE) 100 mg capsule 01-26 21:44: 11 Yes 100mg Take 100 mg by mouth daily. [facility] leuprolide acetate 22.5 mg injection 01-26 21:44: 11 Yes 22.5mg inject 22.5 mg under the skin every 3 (three) months. [facility] budesonide- formoteroL 160-4.5 mcg/actuati on inhaler 01-26 21:44: 11 Yes 2{puff} Inhale 2 Puffs as needed. [facility] nettle leaf (NETTLE, STINGING MISC) 01-26 21:44: 11 Yes 1 TAB-CAP/M2 . [facility] vit B complex no.12/niaci n,B3, (VITAMIN B COMPLEX NO.12-NIACI N ORAL) 01-26 21:44: 11 Yes 1000ug Take 1,000 mcg by mouth. [facility] ascorbic acid, vitamin C, (VITAMIN C) 500 mg tablet 01-26 21:44: 11 Yes 500mg Take 500 mg by mouth daily. [facility] docusate (COLACE) 100 mg capsule 01-26 21:44: 11 Yes 100mg Take 100 mg by mouth daily. [facility] leuprolide acetate 22.5 mg injection 01-26 21:44: 11 Yes 22.5mg inject 22.5 mg under the skin every 3 (three) months. [facility] budesonide- formoteroL 160-4.5 mcg/actuati on inhaler 01-26 21:44: 11 Yes 2{puff} Inhale 2 Puffs as needed. [facility] nettle leaf (NETTLE, STINGING MISC) 01-26 21:44: 11 Yes 1 TAB-CAP/M2 . [facility] vit B complex no.12/niaci n,B3, (VITAMIN B COMPLEX NO.12-NIACI N ORAL) 01-26 21:44: 11 Yes 1000ug Take 1,000 mcg by mouth. [facility] ascorbic acid, vitamin C, (VITAMIN C) 500 mg tablet 01-26 21:44: 11 Yes 500mg Take 500 mg by mouth daily. [facility] docusate (COLACE) 100 mg capsule 01-26 21:44: 11 Yes 100mg Take 100 mg by mouth daily. [facility] leuprolide acetate 22.5 mg injection 01-26 21:44: 11 Yes 22.5mg inject 22.5 mg under the skin every 3 (three) months. [facility] budesonide- formoteroL 160-4.5 mcg/actuati on inhaler 01-26 21:44: 11 Yes 2{puff} Inhale 2 Puffs as needed. [facility] nettle leaf (NETTLE, STINGING MISC) 01-26 21:44: 11 Yes 1 TAB-CAP/M2 . [facility] vit B complex no.12/niaci n,B3, (VITAMIN B COMPLEX NO.12-NIACI N ORAL) 01-26 21:44: 11 Yes 1000ug Take 1,000 mcg by mouth. [facility] ascorbic acid, vitamin C, (VITAMIN C) 500 mg tablet 01-26 21:44: 11 Yes 500mg Take 500 mg by mouth daily. [facility] docusate (COLACE) 100 mg capsule 01-26 21:44: 11 Yes 100mg Take 100 mg by mouth daily. [facility] leuprolide acetate 22.5 mg injection 01-26 21:44: 11 Yes 22.5mg inject 22.5 mg under the skin every 3 (three) months. [facility] budesonide- formoteroL 160-4.5 mcg/actuati on inhaler 01-26 21:44: 11 Yes 2{puff} Inhale 2 Puffs as needed. [facility] nettle leaf (NETTLE, STINGING MISC) 01-26 21:44: 11 Yes 1 TAB-CAP/M2 . [facility] vit B complex no.12/niaci n,B3, (VITAMIN B COMPLEX NO.12-NIACI N ORAL) 01-26 21:44: 11 Yes 1000ug Take 1,000 mcg by mouth. [facility] ascorbic acid, vitamin C, (VITAMIN C) 500 mg tablet 01-26 21:44: 11 Yes 500mg Take 500 mg by mouth daily. [facility] docusate (COLACE) 100 mg capsule 01-26 21:44: 11 Yes 100mg Take 100 mg by mouth daily. [facility] leuprolide acetate 22.5 mg injection 01-26 21:44: 11 Yes 22.5mg inject 22.5 mg under the skin every 3 (three) months. [facility] bud[facility]- formoteroL 160-4.5 mcg/actuati on inhaler 01-26 21:44: 11 Yes 2{puff} Inhale 2 Puffs as needed. [facility] nettle leaf (NETTLE, STINGING MISC) 01-26 21:44: 11 Yes 1 TAB-CAP/M2 . [facility] vit B complex no.12/niaci n,B3, (VITAMIN B COMPLEX NO.12-NIACI N ORAL) 01-26 21:44: 11 Yes 1000ug Take 1,000 mcg by mouth. [facility] ascorbic acid, vitamin C, (VITAMIN C) 500 mg tablet 01-26 21:44: 11 Yes 500mg Take 500 mg by mouth daily. [facility] docusate (COLACE) 100 mg capsule 01-26 21:44: 11 Yes 100mg Take 100 mg by mouth daily. [facility] leuprolide acetate 22.5 mg injection 01-26 21:44: 11 Yes 22.5mg inject 22.5 mg under the skin every 3 (three) months. [facility] budesonide- formoteroL 160-4.5 mcg/actuati on inhaler 01-26 21:44: 11 Yes 2{puff} Inhale 2 Puffs as needed. [facility] nettle leaf (NETTLE, STINGING MISC) 01-26 21:44: 11 Yes 1 TAB-CAP/M2 . [facility] vit B complex no.12/niaci n,B3, (VITAMIN B COMPLEX NO.12-NIACI N ORAL) 01-26 21:44: 11 Yes 1000ug Take 1,000 mcg by mouth. [facility] ascorbic acid, vitamin C, (VITAMIN C) 500 mg tablet 01-26 21:44: 11 Yes 500mg Take 500 mg by mouth daily. [facility] docusate (COLACE) 100 mg capsule 01-26 21:44: 11 Yes 100mg Take 100 mg by mouth daily. [facility] leuprolide acetate 22.5 mg injection 01-26 21:44: 11 Yes 22.5mg inject 22.5 mg under the skin every 3 (three) months. [facility] bud[facility]- formoteroL 160-4.5 mcg/actuati on inhaler 01-26 21:44: 11 Yes 2{puff} Inhale 2 Puffs as needed. [facility] nettle leaf (NETTLE, STINGING MISC) 01-26 21:44: 11 Yes 1 TAB-CAP/M2 . [facility] vit B complex no.12/niaci n,B3, (VITAMIN B COMPLEX NO.12-NIACI N ORAL) 01-26 21:44: 11 Yes 1000ug Take 1,000 mcg by mouth. [facility] ascorbic acid, vitamin C, (VITAMIN C) 500 mg tablet 01-26 21:44: 11 Yes 500mg Take 500 mg by mouth daily. [facility] docusate (COLACE) 100 mg capsule 01-26 21:44: 11 Yes 100mg Take 100 mg by mouth daily. [facility] leuprolide acetate 22.5 mg injection 01-26 21:44: 11 Yes 22.5mg inject 22.5 mg under the skin every 3 (three) months. [facility] budesonide- formoteroL 160-4.5 mcg/actuati on inhaler 01-26 21:44: 11 Yes 2{puff} Inhale 2 Puffs as needed. [facility] nettle leaf (NETTLE, STINGING MISC) 01-26 21:44: 11 Yes 1 TAB-CAP/M2 . [facility] vit B complex no.12/niaci n,B3, (VITAMIN B COMPLEX NO.12-NIACI N ORAL) 01-26 21:44: 11 Yes 1000ug Take 1,000 mcg by mouth. [facility] ascorbic acid, vitamin C, (VITAMIN C) 500 mg tablet 01-26 21:44: 11 Yes 500mg Take 500 mg by mouth daily. [facility] docusate (COLACE) 100 mg capsule 01-26 21:44: 11 Yes 100mg Take 100 mg by mouth daily. [facility] leuprolide acetate 22.5 mg injection 01-26 21:44: 11 Yes 22.5mg inject 22.5 mg under the skin every 3 (three) months. [facility] budesonide- formoteroL 160-4.5 mcg/actuati on inhaler 01-26 21:44: 11 Yes 2{puff} Inhale 2 Puffs as needed. [facility] nettle leaf (NETTLE, STINGING MISC) 01-26 21:44: 11 Yes 1 TAB-CAP/M2 . [facility] vit B complex no.12/niaci n,B3, (VITAMIN B COMPLEX NO.12-NIACI N ORAL) 01-26 21:44: 11 Yes 1000ug Take 1,000 mcg by mouth. [facility] ascorbic acid, vitamin C, (VITAMIN C) 500 mg tablet 01-26 21:44: 11 Yes 500mg Take 500 mg by mouth daily. [facility] docusate (COLACE) 100 mg capsule 01-26 21:44: 11 Yes 100mg Take 100 mg by mouth daily. [facility] leuprolide acetate 22.5 mg injection 01-26 21:44: 11 Yes 22.5mg inject 22.5 mg under the skin every 3 (three) months. [facility] budesonide- formoteroL 160-4.5 mcg/actuati on inhaler 01-26 21:44: 11 Yes 2{puff} Inhale 2 Puffs as needed. [facility] nettle leaf (NETTLE, STINGING MISC) 01-26 21:44: 11 Yes 1 TAB-CAP/M2 . [facility] vit B complex no.12/niaci n,B3, (VITAMIN B COMPLEX NO.12-NIACI N ORAL) 01-26 21:44: 11 Yes 1000ug Take 1,000 mcg by mouth. [facility] ascorbic acid, vitamin C, (VITAMIN C) 500 mg tablet 01-26 21:44: 11 Yes 500mg Take 500 mg by mouth daily. [facility] docusate (COLACE) 100 mg capsule 01-26 21:44: 11 Yes 100mg Take 100 mg by mouth daily. [facility] leuprolide acetate 22.5 mg injection 01-26 21:44: 11 Yes 22.5mg inject 22.5 mg under the skin every 3 (three) months. [facility] budesonide- formoteroL 160-4.5 mcg/actuati on inhaler 01-26 21:44: 11 Yes 2{puff} Inhale 2 Puffs as needed. [facility] nettle leaf (NETTLE, STINGING MISC) 01-26 21:44: 11 Yes 1 TAB-CAP/M2 . [facility] vit B complex no.12/niaci n,B3, (VITAMIN B COMPLEX NO.12-NIACI N ORAL) 01-26 21:44: 11 Yes 1000ug Take 1,000 mcg by mouth. [facility] ascorbic acid, vitamin C, (VITAMIN C) 500 mg tablet 01-26 21:44: 11 Yes 500mg Take 500 mg by mouth daily. [facility] docusate (COLACE) 100 mg capsule 01-26 21:44: 11 Yes 100mg Take 100 mg by mouth daily. [facility] leuprolide acetate 22.5 mg injection 01-26 21:44: 11 Yes 22.5mg inject 22.5 mg under the skin every 3 (three) months. [facility] budesonide- formoteroL 160-4.5 mcg/actuati on inhaler 01-26 21:44: 11 Yes 2{puff} Inhale 2 Puffs as needed. [facility] nettle leaf (NETTLE, STINGING MISC) 01-26 21:44: 11 Yes 1 TAB-CAP/M2 . [facility] vit B complex no.12/niaci n,B3, (VITAMIN B COMPLEX NO.12-NIACI N ORAL) 01-26 21:44: 11 Yes 1000ug Take 1,000 mcg by mouth. [facility] ascorbic acid, vitamin C, (VITAMIN C) 500 mg tablet 01-26 21:44: 11 Yes 500mg Take 500 mg by mouth daily. [facility] docusate (COLACE) 100 mg capsule 01-26 21:44: 11 Yes 100mg Take 100 mg by mouth daily. [facility] leuprolide acetate 22.5 mg injection 01-26 21:44: 11 Yes 22.5mg inject 22.5 mg under the skin every 3 (three) months. [facility] budesonide- formoteroL 160-4.5 mcg/actuati on inhaler 01-26 21:44: 11 Yes 2{puff} Inhale 2 Puffs as needed. [facility] nettle leaf (NETTLE, STINGING MISC) 01-26 21:44: 11 Yes 1 TAB-CAP/M2 . [facility] vit B complex no.12/niaci n,B3, (VITAMIN B COMPLEX NO.12-NIACI N ORAL) 01-26 21:44: 11 Yes 1000ug Take 1,000 mcg by mouth. [facility] ascorbic acid, vitamin C, (VITAMIN C) 500 mg tablet 01-26 21:44: 11 Yes 500mg Take 500 mg by mouth daily. [facility] docusate (COLACE) 100 mg capsule 01-26 21:44: 11 Yes 100mg Take 100 mg by mouth daily. [facility] leuprolide acetate 22.5 mg injection 01-26 21:44: 11 Yes 22.5mg inject 22.5 mg under the skin every 3 (three) months. [facility] budesonide- formoteroL 160-4.5 mcg/actuati on inhaler 01-26 21:44: 11 Yes 2{puff} Inhale 2 Puffs as needed. [facility] nettle leaf (NETTLE, STINGING MISC) 01-26 21:44: 11 Yes 1 TAB-CAP/M2 . [facility] vit B complex no.12/niaci n,B3, (VITAMIN B COMPLEX NO.12-NIACI N ORAL) 01-26 21:44: 11 Yes 1000ug Take 1,000 mcg by mouth. [facility] ascorbic acid, vitamin C, (VITAMIN C) 500 mg tablet 01-26 21:44: 11 Yes 500mg Take 500 mg by mouth daily. [facility] docusate (COLACE) 100 mg capsule 01-26 21:44: 11 Yes 100mg Take 100 mg by mouth daily. [facility] leuprolide acetate 22.5 mg injection 01-26 21:44: 11 Yes 22.5mg inject 22.5 mg under the skin every 3 (three) months. [facility] budesonide- formoteroL 160-4.5 mcg/actuati on inhaler 01-26 21:44: 11 Yes 2{puff} Inhale 2 Puffs as needed. [facility] nettle leaf (NETTLE, STINGING MISC) 01-26 21:44: 11 Yes 1 TAB-CAP/M2 . [facility] vit B complex no.12/niaci n,B3, (VITAMIN B COMPLEX NO.12-NIACI N ORAL) 01-26 21:44: 11 Yes 1000ug Take 1,000 mcg by mouth. [facility] ascorbic acid, vitamin C, (VITAMIN C) 500 mg tablet 01-26 21:44: 11 Yes 500mg Take 500 mg by mouth daily. [facility] docusate (COLACE) 100 mg capsule 01-26 21:44: 11 Yes 100mg Take 100 mg by mouth daily. [facility] leuprolide acetate 22.5 mg injection 01-26 21:44: 11 Yes 22.5mg inject 22.5 mg under the skin every 3 (three) months. [facility] budesonide- formoteroL 160-4.5 mcg/actuati on inhaler 01-26 21:44: 11 Yes 2{puff} Inhale 2 Puffs as needed. [facility] nettle leaf (NETTLE, STINGING MISC) 01-26 21:44: 11 Yes 1 TAB-CAP/M2 . [facility] vit B complex no.12/niaci n,B3, (VITAMIN B COMPLEX NO.12-NIACI N ORAL) 01-26 21:44: 11 Yes 1000ug Take 1,000 mcg by mouth. [facility] ascorbic acid, vitamin C, (VITAMIN C) 500 mg tablet 01-26 21:44: 11 Yes 500mg Take 500 mg by mouth daily. [facility] docusate (COLACE) 100 mg capsule 01-26 21:44: 11 Yes 100mg Take 100 mg by mouth daily. [facility] leuprolide acetate 22.5 mg injection 01-26 21:44: 11 Yes 22.5mg inject 22.5 mg under the skin every 3 (three) months. [facility] budesonide- formoteroL 160-4.5 mcg/actuati on inhaler 01-26 21:44: 11 Yes 2{puff} Inhale 2 Puffs as needed. [facility] nettle leaf (NETTLE, STINGING MISC) 01-26 21:44: 11 Yes 1 TAB-CAP/M2 . [facility] vit B complex no.12/niaci n,B3, (VITAMIN B COMPLEX NO.12-NIACI N ORAL) 01-26 21:44: 11 Yes 1000ug Take 1,000 mcg by mouth. [facility] ascorbic acid, vitamin C, (VITAMIN C) 500 mg tablet 01-26 21:44: 11 Yes 500mg Take 500 mg by mouth daily. [facility] docusate (COLACE) 100 mg capsule 01-26 21:44: 11 Yes 100mg Take 100 mg by mouth daily. [facility] leuprolide acetate 22.5 mg injection 01-26 21:44: 11 Yes 22.5mg inject 22.5 mg under the skin every 3 (three) months. [facility] budesonide- formoteroL 160-4.5 mcg/actuati on inhaler 01-26 21:44: 11 Yes 2{puff} Inhale 2 Puffs as needed. [facility] nettle leaf (NETTLE, STINGING MISC) 01-26 21:44: 11 Yes 1 TAB-CAP/M2 . [facility] vit B complex no.12/niaci n,B3, (VITAMIN B COMPLEX NO.12-NIACI N ORAL) 01-26 21:44: 11 Yes 1000ug Take 1,000 mcg by mouth. [facility] ascorbic acid, vitamin C, (VITAMIN C) 500 mg tablet 01-26 21:44: 11 Yes 500mg Take 500 mg by mouth daily. [facility] docusate (COLACE) 100 mg capsule 01-26 21:44: 11 Yes 100mg Take 100 mg by mouth daily. [facility] leuprolide acetate 22.5 mg injection 01-26 21:44: 11 Yes 22.5mg inject 22.5 mg under the skin every 3 (three) months. [facility] budesonide- formoteroL 160-4.5 mcg/actuati on inhaler 01-26 21:44: 11 Yes 2{puff} Inhale 2 Puffs as needed. [facility] nettle leaf (NETTLE, STINGING MISC) 01-26 21:44: 11 Yes 1 TAB-CAP/M2 . [facility] vit B complex no.12/niaci n,B3, (VITAMIN B COMPLEX NO.12-NIACI N ORAL) 01-26 21:44: 11 Yes 1000ug Take 1,000 mcg by mouth. [facility] ascorbic acid, vitamin C, (VITAMIN C) 500 mg tablet 01-26 21:44: 11 Yes 500mg Take 500 mg by mouth daily. [facility] docusate (COLACE) 100 mg capsule 01-26 21:44: 11 Yes 100mg Take 100 mg by mouth daily. [facility] leuprolide acetate 22.5 mg injection 01-26 21:44: 11 Yes 22.5mg inject 22.5 mg under the skin every 3 (three) months. [facility] budesonide- formoteroL 160-4.5 mcg/actuati on inhaler 01-26 21:44: 11 Yes 2{puff} Inhale 2 Puffs as needed. [facility] nettle leaf (NETTLE, STINGING MISC) 01-26 21:44: 11 Yes 1 TAB-CAP/M2 . [facility] vit B complex no.12/niaci n,B3, (VITAMIN B COMPLEX NO.12-NIACI N ORAL) 01-26 21:44: 11 Yes 1000ug Take 1,000 mcg by mouth. [facility] ascorbic acid, vitamin C, (VITAMIN C) 500 mg tablet 01-26 21:44: 11 Yes 500mg Take 500 mg by mouth daily. [facility] docusate (COLACE) 100 mg capsule 01-26 21:44: 11 Yes 100mg Take 100 mg by mouth daily. [facility] leuprolide acetate 22.5 mg injection 01-26 21:44: 11 Yes 22.5mg inject 22.5 mg under the skin every 3 (three) months. [facility] budesonide- formoteroL 160-4.5 mcg/actuati on inhaler 01-26 21:44: 11 Yes 2{puff} Inhale 2 Puffs as needed. [facility] nettle leaf (NETTLE, STINGING MISC) 01-26 21:44: 11 Yes 1 TAB-CAP/M2 . [facility] vit B complex no.12/niaci n,B3, (VITAMIN B COMPLEX NO.12-NIACI N ORAL) 01-26 21:44: 11 Yes 1000ug Take 1,000 mcg by mouth. [facility] ascorbic acid, vitamin C, (VITAMIN C) 500 mg tablet 01-26 21:44: 11 Yes 500mg Take 500 mg by mouth daily. [facility] docusate (COLACE) 100 mg capsule 01-26 21:44: 11 Yes 100mg Take 100 mg by mouth daily. [facility] leuprolide acetate 22.5 mg injection 01-26 21:44: 11 Yes 22.5mg inject 22.5 mg under the skin every 3 (three) months. [facility] budesonide- formoteroL 160-4.5 mcg/actuati on inhaler 01-26 21:44: 11 Yes 2{puff} Inhale 2 Puffs as needed. [facility] nettle leaf (NETTLE, STINGING MISC) 01-26 21:44: 11 Yes 1 TAB-CAP/M2 . [facility] vit B complex no.12/niaci n,B3, (VITAMIN B COMPLEX NO.12-NIACI N ORAL) 01-26 21:44: 11 Yes 1000ug Take 1,000 mcg by mouth. [facility] ascorbic acid, vitamin C, (VITAMIN C) 500 mg tablet 01-26 21:44: 11 Yes 500mg Take 500 mg by mouth daily. [facility] docusate (COLACE) 100 mg capsule 01-26 21:44: 11 Yes 100mg Take 100 mg by mouth daily. [facility] leuprolide acetate 22.5 mg injection 01-26 21:44: 11 Yes 22.5mg inject 22.5 mg under the skin every 3 (three) months. [facility] budesonide- formoteroL 160-4.5 mcg/actuati on inhaler 01-26 21:44: 11 Yes 2{puff} Inhale 2 Puffs as needed. [facility] nettle leaf (NETTLE, STINGING MISC) 01-26 21:44: 11 Yes 1 TAB-CAP/M2 . [facility] vit B complex no.12/niaci n,B3, (VITAMIN B COMPLEX NO.12-NIACI N ORAL) 01-26 21:44: 11 Yes 1000ug Take 1,000 mcg by mouth. [facility] ascorbic acid, vitamin C, (VITAMIN C) 500 mg tablet 01-26 21:44: 11 Yes 500mg Take 500 mg by mouth daily. [facility] docusate (COLACE) 100 mg capsule 01-26 21:44: 11 Yes 100mg Take 100 mg by mouth daily. [facility] leuprolide acetate 22.5 mg injection 01-26 21:44: 11 Yes 22.5mg inject 22.5 mg under the skin every 3 (three) months. [facility] budesonide- formoteroL 160-4.5 mcg/actuati on inhaler 01-26 21:44: 11 Yes 2{puff} Inhale 2 Puffs as needed. [facility] nettle leaf (NETTLE, STINGING MISC) 01-26 21:44: 11 Yes 1 TAB-CAP/M2 . [facility] vit B complex no.12/niaci n,B3, (VITAMIN B COMPLEX NO.12-NIACI N ORAL) 01-26 21:44: 11 Yes 1000ug Take 1,000 mcg by mouth. [facility] ascorbic acid, vitamin C, (VITAMIN C) 500 mg tablet 01-26 21:44: 11 Yes 500mg Take 500 mg by mouth daily. [facility] docusate (COLACE) 100 mg capsule 01-26 21:44: 11 Yes 100mg Take 100 mg by mouth daily. [facility] leuprolide acetate 22.5 mg injection 01-26 21:44: 11 Yes 22.5mg inject 22.5 mg under the skin every 3 (three) months. [facility] budesonide- formoteroL 160-4.5 mcg/actuati on inhaler 01-26 21:44: 11 Yes 2{puff} Inhale 2 Puffs as needed. [facility] nettle leaf (NETTLE, STINGING MISC) 01-26 21:44: 11 Yes 1 TAB-CAP/M2 . [facility] vit B complex no.12/niaci n,B3, (VITAMIN B COMPLEX NO.12-NIACI N ORAL) 01-26 21:44: 11 Yes 1000ug Take 1,000 mcg by mouth. [facility] ascorbic acid, vitamin C, (VITAMIN C) 500 mg tablet 01-26 21:44: 11 Yes 500mg Take 500 mg by mouth daily. [facility] docusate (COLACE) 100 mg capsule 01-26 21:44: 11 Yes 100mg Take 100 mg by mouth daily. [facility] leuprolide acetate 22.5 mg injection 01-26 21:44: 11 Yes 22.5mg inject 22.5 mg under the skin every 3 (three) months. [facility] budesonide- formoteroL 160-4.5 mcg/actuati on inhaler 01-26 21:44: 11 Yes 2{puff} Inhale 2 Puffs as needed. [facility] nettle leaf (NETTLE, STINGING MISC) 01-26 21:44: 11 Yes 1 TAB-CAP/M2 . [facility] vit B complex no.12/niaci n,B3, (VITAMIN B COMPLEX NO.12-NIACI N ORAL) 01-26 21:44: 11 Yes 1000ug Take 1,000 mcg by mouth. [facility] ascorbic acid, vitamin C, (VITAMIN C) 500 mg tablet 01-26 21:44: 11 Yes 500mg Take 500 mg by mouth daily. [facility] docusate (COLACE) 100 mg capsule 01-26 21:44: 11 Yes 100mg Take 100 mg by mouth daily. [facility] leuprolide acetate 22.5 mg injection 01-26 21:44: 11 Yes 22.5mg inject 22.5 mg under the skin every 3 (three) months. [facility] budesonide- formoteroL 160-4.5 mcg/actuati on inhaler 01-26 21:44: 11 Yes 2{puff} Inhale 2 Puffs as needed. [facility] nettle leaf (NETTLE, STINGING MISC) 01-26 21:44: 11 Yes 1 TAB-CAP/M2 . [facility] vit B complex no.12/niaci n,B3, (VITAMIN B COMPLEX NO.12-NIACI N ORAL) 01-26 21:44: 11 Yes 1000ug Take 1,000 mcg by mouth. [facility] ascorbic acid, vitamin C, (VITAMIN C) 500 mg tablet 01-26 21:44: 11 Yes 500mg Take 500 mg by mouth daily. [facility] docusate (COLACE) 100 mg capsule 01-26 21:44: 11 Yes 100mg Take 100 mg by mouth daily. [facility] leuprolide acetate 22.5 mg injection 01-26 21:44: 11 Yes 22.5mg inject 22.5 mg under the skin every 3 (three) months. [facility] budesonide- formoteroL 160-4.5 mcg/actuati on inhaler 01-26 21:44: 11 Yes 2{puff} Inhale 2 Puffs as needed. [facility] nettle leaf (NETTLE, STINGING MISC) 01-26 21:44: 11 Yes 1 TAB-CAP/M2 . [facility] vit B complex no.12/niaci n,B3, (VITAMIN B COMPLEX NO.12-NIACI N ORAL) 01-26 21:44: 11 Yes 1000ug Take 1,000 mcg by mouth. [facility] ascorbic acid, vitamin C, (VITAMIN C) 500 mg tablet 01-26 21:44: 11 Yes 500mg Take 500 mg by mouth daily. [facility] docusate (COLACE) 100 mg capsule 01-26 21:44: 11 Yes 100mg Take 100 mg by mouth daily. [facility] leuprolide acetate 22.5 mg injection 01-26 21:44: 11 Yes 22.5mg inject 22.5 mg under the skin every 3 (three) months. [facility] budesonide- formoteroL 160-4.5 mcg/actuati on inhaler 01-26 21:44: 11 Yes 2{puff} Inhale 2 Puffs as needed. [facility] nettle leaf (NETTLE, STINGING MISC) 01-26 21:44: 11 Yes 1 TAB-CAP/M2 . [facility] vit B complex no.12/niaci n,B3, (VITAMIN B COMPLEX NO.12-NIACI N ORAL) 01-26 21:44: 11 Yes 1000ug Take 1,000 mcg by mouth. [facility] ascorbic acid, vitamin C, (VITAMIN C) 500 mg tablet 01-26 21:44: 11 Yes 500mg Take 500 mg by mouth daily. [facility] docusate (COLACE) 100 mg capsule 01-26 21:44: 11 Yes 100mg Take 100 mg by mouth daily. [facility] leuprolide acetate 22.5 mg injection 01-26 21:44: 11 Yes 22.5mg inject 22.5 mg under the skin every 3 (three) months. [facility] budesonide- formoteroL 160-4.5 mcg/actuati on inhaler 01-26 21:44: 11 Yes 2{puff} Inhale 2 Puffs as needed. [facility] nettle leaf (NETTLE, STINGING MISC) 01-26 21:44: 11 Yes 1 TAB-CAP/M2 . [facility] vit B complex no.12/niaci n,B3, (VITAMIN B COMPLEX NO.12-NIACI N ORAL) 01-26 21:44: 11 Yes 1000ug Take 1,000 mcg by mouth. [facility] ascorbic acid, vitamin C, (VITAMIN C) 500 mg tablet 01-26 21:44: 11 Yes 500mg Take 500 mg by mouth daily. [facility] docusate (COLACE) 100 mg capsule 01-26 21:44: 11 Yes 100mg Take 100 mg by mouth daily. [facility] leuprolide acetate 22.5 mg injection 01-26 21:44: 11 Yes 22.5mg inject 22.5 mg under the skin every 3 (three) months. [facility] budesonide- formoteroL 160-4.5 mcg/actuati on inhaler 01-26 21:44: 11 Yes 2{puff} Inhale 2 Puffs as needed. [facility] nettle leaf (NETTLE, STINGING MISC) 01-26 21:44: 11 Yes 1 TAB-CAP/M2 . [facility] vit B complex no.12/niaci n,B3, (VITAMIN B COMPLEX NO.12-NIACI N ORAL) 01-26 21:44: 11 Yes 1000ug Take 1,000 mcg by mouth. [facility] ascorbic acid, vitamin C, (VITAMIN C) 500 mg tablet 01-26 21:44: 11 Yes 500mg Take 500 mg by mouth daily. [facility] docusate (COLACE) 100 mg capsule 01-26 21:44: 11 Yes 100mg Take 100 mg by mouth daily. [facility] leuprolide acetate 22.5 mg injection 01-26 21:44: 11 Yes 22.5mg inject 22.5 mg under the skin every 3 (three) months. [facility] budesonide- formoteroL 160-4.5 mcg/actuati on inhaler 01-26 21:44: 11 Yes 2{puff} Inhale 2 Puffs as needed. [facility] nettle leaf (NETTLE, STINGING MISC) 01-26 21:44: 11 Yes 1 TAB-CAP/M2 . [facility] vit B complex no.12/niaci n,B3, (VITAMIN B COMPLEX NO.12-NIACI N ORAL) 01-26 21:44: 11 Yes 1000ug Take 1,000 mcg by mouth. [facility] ascorbic acid, vitamin C, (VITAMIN C) 500 mg tablet 01-26 21:44: 11 Yes 500mg Take 500 mg by mouth daily. [facility] docusate (COLACE) 100 mg capsule 01-26 21:44: 11 Yes 100mg Take 100 mg by mouth daily. [facility] leuprolide acetate 22.5 mg injection 01-26 21:44: 11 Yes 22.5mg inject 22.5 mg under the skin every 3 (three) months. [facility] budesonide- formoteroL 160-4.5 mcg/actuati on inhaler 01-26 21:44: 11 Yes 2{puff} Inhale 2 Puffs as needed. [facility] nettle leaf (NETTLE, STINGING MISC) 01-26 21:44: 11 Yes 1 TAB-CAP/M2 . [facility] vit B complex no.12/niaci n,B3, (VITAMIN B COMPLEX NO.12-NIACI N ORAL) 01-26 21:44: 11 Yes 1000ug Take 1,000 mcg by mouth. [facility].5 mg injection 01-26 21:44: 11 Yes 22.5mg inject 22.5 mg under the skin every 3 (three) months. [facility] bud[facility]ide- formoteroL 160-4.5 mcg/actuati on inhaler 01-26 21:44: 11 Yes 2{puff} Inhale 2 Puffs as needed. [facility] (NETTLE, STINGING MISC) 01-26 21:44: 11 Yes 1 TAB-CAP/M2 . [facility] vit B complex no.12/niaci n,B3, (VITAMIN B COMPLEX NO.12-NIACI N ORAL) 01-26 21:44: 11 Yes 1000ug Take 1,000 mcg by mouth. [facility] leuprolide acetate 22.5 mg injection 01-26 21:44: 11 Yes 22.5mg inject 22.5 mg under the skin every 3 (three) months. [facility] budesonide- formoteroL 160-4.5 mcg/actuati on inhaler 01-26 21:44: 11 Yes 2{puff} Inhale 2 Puffs as needed. [facility] nettle leaf (NETTLE, STINGING MISC) 01-26 21:44: 11 Yes 1 TAB-CAP/M2 . [facility] vit B complex no.12/niaci n,B3, (VITAMIN B COMPLEX NO.12-NIACI N ORAL) 01-26 21:44: 11 Yes 1000ug Take 1,000 mcg by mouth. [facility] leuprolide acetate 22.5 mg injection 01-26 21:44: 11 Yes 22.5mg inject 22.5 mg under the skin every 3 (three) months. [facility] budesonide- formoteroL 160-4.5 mcg/actuati on inhaler 01-26 21:44: 11 Yes 2{puff} Inhale 2 Puffs as needed. [facility] nettle leaf (NETTLE, STINGING MISC) 01-26 21:44: 11 Yes 1 TAB-CAP/M2 . [facility] vit B complex no.12/niaci n,B3, (VITAMIN B COMPLEX NO.12-NIACI N ORAL) 01-26 21:44: 11 Yes 1000ug Take 1,000 mcg by mouth. [facility] 22.5 mg injection 01-26 21:44: 11 Yes 22.5mg inject 22.5 mg under the skin every 3 (three) months. [facility] budesonide- formoteroL 160-4.5 mcg/actuati on inhaler 01-26 21:44: 11 Yes 2{puff} Inhale 2 Puffs as needed. [facility] nettle leaf (NETTLE, STINGING MISC) 01-26 21:44: 11 Yes 1 TAB-CAP/M2 . [facility] vit B complex no.12/niaci n,B3, (VITAMIN B COMPLEX NO.12-NIACI N ORAL) 01-26 21:44: 11 Yes 1000ug Take 1,000 mcg by mouth. [facility] leuprolide acetate 22.5 mg injection 01-26 21:44: 11 Yes 22.5mg inject 22.5 mg under the skin every 3 (three) months. [facility] budesonide- formoteroL 160-4.5 mcg/actuati on inhaler 01-26 21:44: 11 Yes 2{puff} Inhale 2 Puffs as needed. [facility] nettle leaf (NETTLE, STINGING MISC) 01-26 21:44: 11 Yes 1 TAB-CAP/M2 . [facility] vit B complex no.12/niaci n,B3, (VITAMIN B COMPLEX NO.12-NIACI N ORAL) 01-26 21:44: 11 Yes 1000ug Take 1,000 mcg by mouth. [facility] 22.5 mg injection 01-26 21:44: 11 Yes 22.5mg inject 22.5 mg under the skin every 3 (three) months. [facility] budesonide- formoteroL 160-4.5 mcg/actuati on inhaler 01-26 21:44: 11 Yes 2{puff} Inhale 2 Puffs as needed. [facility] nettle leaf (NETTLE, STINGING MISC) 01-26 21:44: 11 Yes 1 TAB-CAP/M2 . [facility] vit B complex no.12/niaci n,B3, (VITAMIN B COMPLEX NO.12-NIACI N ORAL) 01-26 21:44: 11 Yes 1000ug Take 1,000 mcg by mouth. [facility] leuprolide acetate 22.5 mg injection 01-26 21:44: 11 Yes 22.5mg inject 22.5 mg under the skin every 3 (three) months. [facility] budesonide- formoteroL 160-4.5 mcg/actuati on inhaler 01-26 21:44: 11 Yes 2{puff} Inhale 2 Puffs as needed. [facility] nettle leaf (NETTLE, STINGING MISC) 01-26 21:44: 11 Yes 1 TAB-CAP/M2 . [facility] vit B complex no.12/niaci n,B3, (VITAMIN B COMPLEX NO.12-NIACI N ORAL) 01-26 21:44: 11 Yes 1000ug Take 1,000 mcg by mouth. [facility] leuprolide acetate 22.5 mg injection 01-26 21:44: 11 Yes 22.5mg inject 22.5 mg under the skin every 3 (three) months. [facility] budesonide- formoteroL 160-4.5 mcg/actuati on inhaler 01-26 21:44: 11 Yes 2{puff} Inhale 2 Puffs as needed. [facility] nettle leaf (NETTLE, STINGING MISC) 01-26 21:44: 11 Yes 1 TAB-CAP/M2 . [facility] vit B complex no.12/niaci n,B3, (VITAMIN B COMPLEX NO.12-NIACI N ORAL) 01-26 21:44: 11 Yes 1000ug Take 1,000 mcg by mouth. [facility] leuprolide acetate 22.5 mg injection 01-26 21:44: 11 Yes 22.5mg inject 22.5 mg under the skin every 3 (three) months. [facility] budesonide- formoteroL 160-4.5 mcg/actuati on inhaler 01-26 21:44: 11 Yes 2{puff} Inhale 2 Puffs as needed. [facility] (NETTLE, STINGING MISC) 01-26 21:44: 11 Yes 1 TAB-CAP/M2 . [facility] vit B complex no.12/niaci n,B3, (VITAMIN B COMPLEX NO.12-NIACI N ORAL) 01-26 21:44: 11 Yes 1000ug Take 1,000 mcg by mouth. [facility] le[facility] acetate 22.5 mg injection 01-26 21:44: 11 Yes 22.5mg inject 22.5 mg under the skin every 3 (three) months. [facility] budesonide- formoteroL 160-4.5 mcg/actuati on inhaler 01-26 21:44: 11 Yes 2{puff} Inhale 2 Puffs as needed. [facility] nettle leaf (NETTLE, STINGING MISC) 01-26 21:44: 11 Yes 1 TAB-CAP/M2 . [facility] vit B complex no.12/niaci n,B3, (VITAMIN B COMPLEX NO.12-NIACI N ORAL) 01-26 21:44: 11 Yes 1000ug Take 1,000 mcg by mouth. [facility] leuprolide acetate 22.5 mg injection 01-26 21:44: 11 Yes 22.5mg inject 22.5 mg under the skin every 3 (three) months. [facility] budesonide- formoteroL 160-4.5 mcg/actuati on inhaler 01-26 21:44: 11 Yes 2{puff} Inhale 2 Puffs as needed. [facility] nettle leaf (NETTLE, STINGING MISC) 01-26 21:44: 11 Yes 1 TAB-CAP/M2 . [facility] vit B complex no.12/niaci n,B3, (VITAMIN B COMPLEX NO.12-NIACI N ORAL) 01-26 21:44: 11 Yes 1000ug Take 1,000 mcg by mouth. [facility] le[facility] acetate 22.5 mg injection 01-26 21:44: 11 Yes 22.5mg inject 22.5 mg under the skin every 3 (three) months. [facility] budesonide- formoteroL 160-4.5 mcg/actuati on inhaler 01-26 21:44: 11 Yes 2{puff} Inhale 2 Puffs as needed. [facility] nettle leaf (NETTLE, STINGING MISC) 01-26 21:44: 11 Yes 1 TAB-CAP/M2 . [facility] vit B complex no.12/niaci n,B3, (VITAMIN B COMPLEX NO.12-NIACI N ORAL) 01-26 21:44: 11 Yes 1000ug Take 1,000 mcg by mouth. [facility] leuprolide acetate 22.5 mg injection 01-26 21:44: 11 Yes 22.5mg inject 22.5 mg under the skin every 3 (three) months. [facility] budesonide- formoteroL 160-4.5 mcg/actuati on inhaler 01-26 21:44: 11 Yes 2{puff} Inhale 2 Puffs as needed. [facility] nettle leaf (NETTLE, STINGING MISC) 01-26 21:44: 11 Yes 1 TAB-CAP/M2 . [facility] vit B complex no.12/niaci n,B3, (VITAMIN B COMPLEX NO.12-NIACI N ORAL) 01-26 21:44: 11 Yes 1000ug Take 1,000 mcg by mouth. [facility] leuprolide acetate 22.5 mg injection 01-26 21:44: 11 Yes 22.5mg inject 22.5 mg under the skin every 3 (three) months. [facility] budesonide- formoteroL 160-4.5 mcg/actuati on inhaler 01-26 21:44: 11 Yes 2{puff} Inhale 2 Puffs as needed. [facility] nettle leaf (NETTLE, STINGING MISC) 01-26 21:44: 11 Yes 1 TAB-CAP/M2 . [facility] vit B complex no.12/niaci n,B3, (VITAMIN B COMPLEX NO.12-NIACI N ORAL) 01-26 21:44: 11 Yes 1000ug Take 1,000 mcg by mouth. [facility] leuprolide acetate 22.5 mg injection 01-26 21:44: 11 Yes 22.5mg inject 22.5 mg under the skin every 3 (three) months. [facility] budesonide- formoteroL 160-4.5 mcg/actuati on inhaler 01-26 21:44: 11 Yes 2{puff} Inhale 2 Puffs as needed. [facility] nettle leaf (NETTLE, STINGING MISC) 01-26 21:44: 11 Yes 1 TAB-CAP/M2 . [facility] vit B complex no.12/niaci n,B3, (VITAMIN B COMPLEX NO.12-NIACI N ORAL) 01-26 21:44: 11 Yes 1000ug Take 1,000 mcg by mouth. [facility] le[facility] acetate 22.5 mg injection 01-26 21:44: 11 Yes 22.5mg inject 22.5 mg under the skin every 3 (three) months. [facility] budesonide- formoteroL 160-4.5 mcg/actuati on inhaler 01-26 21:44: 11 Yes 2{puff} Inhale 2 Puffs as needed. [facility] nettle leaf (NETTLE, STINGING MISC) 01-26 21:44: 11 Yes 1 TAB-CAP/M2 . [facility] vit B complex no.12/niaci n,B3, (VITAMIN B COMPLEX NO.12-NIACI N ORAL) 01-26 21:44: 11 Yes 1000ug Take 1,000 mcg by mouth. [facility] leuprolide acetate 22.5 mg injection 01-26 21:44: 11 Yes 22.5mg inject 22.5 mg under the skin every 3 (three) months. [facility] budesonide- formoteroL 160-4.5 mcg/actuati on inhaler 01-26 21:44: 11 Yes 2{puff} Inhale 2 Puffs as needed. [facility] nettle leaf (NETTLE, STINGING MISC) 01-26 21:44: 11 Yes 1 TAB-CAP/M2 . [facility] vit B complex no.12/niaci n,B3, (VITAMIN B COMPLEX NO.12-NIACI N ORAL) 01-26 21:44: 11 Yes 1000ug Take 1,000 mcg by mouth. [facility] le[facility] 22.5 mg injection 01-26 21:44: 11 Yes 22.5mg inject 22.5 mg under the skin every 3 (three) months. [facility] budesonide- formoteroL 160-4.5 mcg/actuati on inhaler 01-26 21:44: 11 Yes 2{puff} Inhale 2 Puffs as needed. [facility] nettle leaf (NETTLE, STINGING MISC) 01-26 21:44: 11 Yes 1 TAB-CAP/M2 . [facility] vit B complex no.12/niaci n,B3, (VITAMIN B COMPLEX NO.12-NIACI N ORAL) 01-26 21:44: 11 Yes 1000ug Take 1,000 mcg by mouth. [facility] leuprolide acetate 22.5 mg injection 01-26 21:44: 11 Yes 22.5mg inject 22.5 mg under the skin every 3 (three) months. [facility] budesonide- formoteroL 160-4.5 mcg/actuati on inhaler 01-26 21:44: 11 Yes 2{puff} Inhale 2 Puffs as needed. [facility] nettle leaf (NETTLE, STINGING MISC) 01-26 21:44: 11 Yes 1 TAB-CAP/M2 . [facility] no.12/niaci n,B3, (VITAMIN B COMPLEX NO.12-NIACI N ORAL) 01-26 21:44: 11 Yes 1000ug Take 1,000 mcg by mouth. [facility] leuprolide acetate 22.5 mg injection 01-26 21:44: 11 Yes 22.5mg inject 22.5 mg under the skin every 3 (three) months. [facility] budesonide- formoteroL 160-4.5 mcg/actuati on inhaler 01-26 21:44: 11 Yes 2{puff} Inhale 2 Puffs as needed. [facility] nettle leaf (NETTLE, STINGING MISC) 01-26 21:44: 11 Yes 1 TAB-CAP/M2 . [facility] vit B complex no.12/niaci n,B3, (VITAMIN B COMPLEX NO.12-NIACI N ORAL) 01-26 21:44: 11 Yes 1000ug Take 1,000 mcg by mouth. [facility] leuprolide acetate 22.5 mg injection 01-26 21:44: 11 Yes 22.5mg inject 22.5 mg under the skin every 3 (three) months. [facility] budesonide- formoteroL 160-4.5 mcg/actuati on inhaler 01-26 21:44: 11 Yes 2{puff} Inhale 2 Puffs as needed. [facility] nettle leaf (NETTLE, STINGING MISC) 01-26 21:44: 11 Yes 1 TAB-CAP/M2 . [facility] vit B complex no.12/niaci n,B3, (VITAMIN B COMPLEX NO.12-NIACI N ORAL) 01-26 21:44: 11 Yes 1000ug Take 1,000 mcg by mouth. [facility] leuprolide acetate 22.5 mg injection 01-26 21:44: 11 Yes 22.5mg inject 22.5 mg under the skin every 3 (three) months. [facility] budesonide- formoteroL 160-4.5 mcg/actuati on inhaler 01-26 21:44: 11 Yes 2{puff} Inhale 2 Puffs as needed. [facility] (NETTLE, STINGING MISC) 01-26 21:44: 11 Yes 1 TAB-CAP/M2 . [facility] vit B complex no.12/niaci n,B3, (VITAMIN B COMPLEX NO.12-NIACI N ORAL) 01-26 21:44: 11 Yes 1000ug Take 1,000 mcg by mouth. [facility] le[facility] acetate 22.5 mg injection 01-26 21:44: 11 Yes 22.5mg inject 22.5 mg under the skin every 3 (three) months. [facility] budesonide- formoteroL 160-4.5 mcg/actuati on inhaler 01-26 21:44: 11 Yes 2{puff} Inhale 2 Puffs as needed. [facility] nettle leaf (NETTLE, STINGING MISC) 01-26 21:44: 11 Yes 1 TAB-CAP/M2 . [facility] no.12/niaci n,B3, (VITAMIN B COMPLEX NO.12-NIACI N ORAL) 01-26 21:44: 11 Yes 1000ug Take 1,000 mcg by mouth. [facility] ity [facility] leuprolide acetate 22.5 mg injection 01-26 21:44: 11 Yes 22.5mg inject 22.5 mg under the skin every 3 (three) months. [facility] ity [facility] budesonide- formoteroL 160-4.5 mcg/actuati on inhaler 01-26 21:44: 11 Yes 2{puff} Inhale 2 Puffs as needed. [facility] ity [facility] nettle leaf (NETTLE, STINGING MISC) 01-26 21:44: 11 Yes 1 TAB-CAP/M2 . [facility] ity [facility] vit B complex no.12/niaci n,B3, (VITAMIN B COMPLEX NO.12-NIACI N ORAL) 01-26 21:44: 11 Yes 1000ug Take 1,000 mcg by mouth. [facility] 22.5 mg injection 01-26 21:44: 11 Yes 22.5mg inject 22.5 mg under the skin every 3 (three) months. [facility] ity [facility] budesonide- formoteroL 160-4.5 mcg/actuati on inhaler 01-26 21:44: 11 Yes 2{puff} Inhale 2 Puffs as needed. [facility] ity [facility] nettle leaf (NETTLE, STINGING MISC) 01-26 21:44: 11 Yes 1 TAB-CAP/M2 . [facility] ity [facility] leuprolide acetate 22.5 mg injection 01-26 21:44: 11 Yes 22.5mg inject 22.5 mg under the skin every 3 (three) months. [facility] it[facility] budesonide- formoteroL 160-4.5 mcg/actuati on inhaler 01-26 21:44: 11 Yes 2{puff} Inhale 2 Puffs as needed. [facility] it[facility] nettle leaf (NETTLE, STINGING MISC) 01-26 21:44: 11 Yes 1 TAB-CAP/M2 . [facility] ity [facility] leuprolide acetate 22.5 mg injection 01-26 21:44: 11 Yes 22.5mg inject 22.5 mg under the skin every 3 (three) months. [facility] budesonide- formoteroL 160-4.5 mcg/actuati on inhaler 01-26 21:44: 11 Yes 2{puff} Inhale 2 Puffs as needed. [facility] ity [facility] nettle leaf (NETTLE, STINGING MISC) 01-26 21:44: 11 Yes 1 TAB-CAP/M2 . [facility] leuprolide acetate 22.5 mg injection 01-26 21:44: 11 Yes 22.5mg inject 22.5 mg under the skin every 3 (three) months. [facility] it[facility] budesonide- formoteroL 160-4.5 mcg/actuati on inhaler 01-26 21:44: 11 Yes 2{puff} Inhale 2 Puffs as needed. [facility] it[facility] nettle leaf (NETTLE, STINGING MISC) 01-26 21:44: 11 Yes 1 TAB-CAP/M2 . [facility] leuprolide acetate 22.5 mg injection 01-26 21:44: 11 Yes 22.5mg inject 22.5 mg under the skin every 3 (three) months. [facility] budesonide- formoteroL 160-4.5 mcg/actuati on inhaler 01-26 21:44: 11 Yes 2{puff} Inhale 2 Puffs as needed. [facility] nettle leaf (NETTLE, STINGING MISC) 01-26 21:44: 11 Yes 1 TAB-CAP/M2 . [facility] leuprolide acetate 22.5 mg injection 01-26 21:44: 11 Yes 22.5mg inject 22.5 mg under the skin every 3 (three) months. [facility] budesonide- formoteroL 160-4.5 mcg/actuati on inhaler 01-26 21:44: 11 Yes 2{puff} Inhale 2 Puffs as needed. [facility] nettle leaf (NETTLE, STINGING MISC) 01-26 21:44: 11 Yes 1 TAB-CAP/M2 . [facility] leuprolide acetate 22.5 mg injection 01-26 21:44: 11 Yes 22.5mg inject 22.5 mg under the skin every 3 (three) months. [facility] it[facility] budesonide- formoteroL 160-4.5 mcg/actuati on inhaler 01-26 21:44: 11 Yes 2{puff} Inhale 2 Puffs as needed. [facility] it[facility] nettle leaf (NETTLE, STINGING MISC) 01-26 21:44: 11 Yes 1 TAB-CAP/M2 . [facility] it[facility] leuprolide acetate 22.5 mg injection 01-26 21:44: 11 Yes 22.5mg inject 22.5 mg under the skin every 3 (three) months. [facility] leuprolide acetate 22.5 mg injection 01-26 21:44: 11 Yes 22.5mg inject 22.5 mg under the skin every 3 (three) months. [facility] it[facility] leuprolide acetate 22.5 mg injection 01-26 21:44: 11 Yes 22.5mg inject 22.5 mg under the skin every 3 (three) months. [facility] it[facility] leuprolide acetate 22.5 mg injection 01-26 21:44: 11 Yes 22.5mg inject 22.5 mg under the skin every 3 (three) months. [facility] it[facility] leuprolide acetate 22.5 mg injection 01-26 21:44: 11 Yes 22.5mg inject 22.5 mg under the skin every 3 (three) months. [facility] it[facility] leuprolide acetate 22.5 mg injection 01-26 21:44: 11 Yes 22.5mg inject 22.5 mg under the skin every 3 (three) months. [facility] leuprolide acetate 22.5 mg injection 01-26 21:44: 11 Yes 22.5mg inject 22.5 mg under the skin every 3 (three) months. [facility] ferrous sulfate 325 mg (65 mg iron) tablet 01-26 00:00: 00 Yes [id number] 325mg Take 1 tablet by mouth 2 (two) times daily before breakfast and dinner. [facility] metoprolol tartrate 25 mg tablet 01-26 00:00: 00 Yes [id number] 25mg Take 1 tablet by mouth every 12 (twelve) hours. [facility] ferrous sulfate 325 mg (65 mg iron) tablet 01-26 00:00: 00 Yes [id number] 325mg Take 1 tablet by mouth 2 (two) times daily before breakfast and dinner. [facility] metoprolol tartrate 25 mg tablet 01-26 00:00: 00 Yes [id number] 25mg Take 1 tablet by mouth every 12 (twelve) hours. [facility] ferrous sulfate 325 mg (65 mg iron) tablet 01-26 00:00: 00 Yes [id number] 325mg Take 1 tablet by mouth 2 (two) times daily before breakfast and dinner. [facility] metoprolol tartrate 25 mg tablet 01-26 00:00: 00 Yes [id number] 25mg Take 1 tablet by mouth every 12 (twelve) hours. [facility] ferrous sulfate 325 mg (65 mg iron) tablet 01-26 00:00: 00 Yes [id number] 325mg Take 1 tablet by mouth 2 (two) times daily before breakfast and dinner. [facility] metoprolol tartrate 25 mg tablet 01-26 00:00: 00 Yes [id number] 25mg Take 1 tablet by mouth every 12 (twelve) hours. [facility] ferrous sulfate 325 mg (65 mg iron) tablet 01-26 00:00: 00 Yes [id number] 325mg Take 1 tablet by mouth 2 (two) times daily before breakfast and dinner. [facility] metoprolol tartrate 25 mg tablet 2021-0 01-26 00:00: 00 Yes [id number] 25mg Take 1 tablet by mouth every 12 (twelve) hours. [facility] ferrous sulfate 325 mg (65 mg iron) tablet 0 01-26 00:00: 00 Yes [id number] 325mg Take 1 tablet by mouth 2 (two) times daily before breakfast and dinner. [facility] metoprolol tartrate 25 mg tablet 2021-0 01-26 00:00: 00 Yes [id number] 25mg Take 1 tablet by mouth every 12 (twelve) hours. [facility] ferrous sulfate 325 mg (65 mg iron) tablet 0 01-26 00:00: 00 Yes [id number] 325mg Take 1 tablet by mouth 2 (two) times daily before breakfast and dinner. [facility] metoprolol tartrate 25 mg tablet 0 01-26 00:00: 00 Yes [id number] 25mg Take 1 tablet by mouth every 12 (twelve) hours. [facility] ferrous sulfate 325 mg (65 mg iron) tablet 0 01-26 00:00: 00 Yes [id number] 325mg Take 1 tablet by mouth 2 (two) times daily before breakfast and dinner. [facility] metoprolol tartrate 25 mg tablet 0 01-26 00:00: 00 Yes [id number] 25mg Take 1 tablet by mouth every 12 (twelve) hours. [facility] ferrous sulfate 325 mg (65 mg iron) tablet 0 01-26 00:00: 00 Yes [id number] 325mg Take 1 tablet by mouth 2 (two) times daily before breakfast and dinner. [facility] metoprolol tartrate 25 mg tablet 0 01-26 00:00: 00 Yes [id number] 25mg Take 1 tablet by mouth every 12 (twelve) hours. [facility] ferrous sulfate 325 mg (65 mg iron) tablet 2021-0 01-26 00:00: 00 Yes [id number] 325mg Take 1 tablet by mouth 2 (two) times daily before breakfast and dinner. [facility] metoprolol tartrate 25 mg tablet 2021-0 01-26 00:00: 00 Yes [id number] 25mg Take 1 tablet by mouth every 12 (twelve) hours. [facility] ferrous sulfate 325 mg (65 mg iron) tablet 01-26 00:00: 00 Yes [id number] 325mg Take 1 tablet by mouth 2 (two) times daily before breakfast and dinner. [facility] metoprolol tartrate 25 mg tablet 01-26 00:00: 00 Yes [id number] 25mg Take 1 tablet by mouth every 12 (twelve) hours. [facility] ferrous sulfate 325 mg (65 mg iron) tablet 01-26 00:00: 00 Yes [id number] 325mg Take 1 tablet by mouth 2 (two) times daily before breakfast and dinner. [facility] metoprolol tartrate 25 mg tablet 01-26 00:00: 00 Yes [id number] 25mg Take 1 tablet by mouth every 12 (twelve) hours. [facility] ferrous sulfate 325 mg (65 mg iron) tablet 01-26 00:00: 00 Yes [id number] 325mg Take 1 tablet by mouth 2 (two) times daily before breakfast and dinner. [facility] metoprolol tartrate 25 mg tablet 01-26 00:00: 00 Yes [id number] 25mg Take 1 tablet by mouth every 12 (twelve) hours. [facility] ferrous sulfate 325 mg (65 mg iron) tablet 01-26 00:00: 00 Yes [id number] [id number] 325mg Take 1 tablet by mouth 2 (two) times daily before breakfast and dinner. [facility] metoprolol tartrate 25 mg tablet 01-26 00:00: 00 Yes [id number] 25mg Take 1 tablet by mouth every 12 (twelve) hours. [facility] ferrous sulfate 325 mg (65 mg iron) tablet 01-26 00:00: 00 Yes [id number] 325mg Take 1 tablet by mouth 2 (two) times daily before breakfast and dinner. [facility] metoprolol tartrate 25 mg tablet 01-26 00:00: 00 Yes [id number] [id number] 25mg Take 1 tablet by mouth every 12 (twelve) hours. [facility] ferrous sulfate 325 mg (65 mg iron) tablet 01-26 00:00: 00 Yes [id number] 325mg Take 1 tablet by mouth 2 (two) times daily before breakfast and dinner. [facility] metoprolol tartrate 25 mg tablet 01-26 00:00: 00 Yes [id number] 25mg Take 1 tablet by mouth every 12 (twelve) hours. [facility] ferrous sulfate 325 mg (65 mg iron) tablet 01-26 00:00: 00 Yes [id number] 325mg Take 1 tablet by mouth 2 (two) times daily before breakfast and dinner. [facility] metoprolol tartrate 25 mg tablet 01-26 00:00: 00 Yes [id number] 25mg Take 1 tablet by mouth every 12 (twelve) hours. [facility] ferrous sulfate 325 mg (65 mg iron) tablet 01-26 00:00: 00 Yes [id number] [id number] 325mg Take 1 tablet by mouth 2 (two) times daily before breakfast and dinner. [facility] metoprolol tartrate 25 mg tablet 01-26 00:00: 00 Yes [id number] 25mg Take 1 tablet by mouth every 12 (twelve) hours. [facility] ferrous sulfate 325 mg (65 mg iron) tablet 01-26 00:00: 00 Yes [id number] 9108 325mg Take 1 tablet by mouth 2 (two) times daily before breakfast and dinner. [facility] metoprolol tartrate 25 mg tablet 01-26 00:00: 00 Yes [id number] 25mg Take 1 tablet by mouth every 12 (twelve) hours. [facility] ferrous sulfate 325 mg (65 mg iron) tablet 01-26 00:00: 00 Yes [id number] 325mg Take 1 tablet by mouth 2 (two) times daily before breakfast and dinner. [facility] metoprolol tartrate 25 mg tablet 01-26 00:00: 00 Yes [id number] 25mg Take 1 tablet by mouth every 12 (twelve) hours. [facility] ferrous sulfate 325 mg (65 mg iron) tablet 01-26 00:00: 00 Yes [id number] 325mg Take 1 tablet by mouth 2 (two) times daily before breakfast and dinner. [facility] metoprolol tartrate 25 mg tablet 01-26 00:00: 00 Yes [id number] 25mg Take 1 tablet by mouth every 12 (twelve) hours. [facility] ferrous sulfate 325 mg (65 mg iron) tablet 01-26 00:00: 00 Yes [id number] 325mg Take 1 tablet by mouth 2 (two) times daily before breakfast and dinner. [facility] metoprolol tartrate 25 mg tablet 01-26 00:00: 00 Yes [id number] 25mg Take 1 tablet by mouth every 12 (twelve) hours. [facility] ferrous sulfate 325 mg (65 mg iron) tablet 01-26 00:00: 00 Yes [id number] [id number] 325mg Take 1 tablet by mouth 2 (two) times daily before breakfast and dinner. [facility] metoprolol tartrate 25 mg tablet 01-26 00:00: 00 Yes [id number] 25mg Take 1 tablet by mouth every 12 (twelve) hours. [facility] ferrous sulfate 325 mg (65 mg iron) tablet 01-26 00:00: 00 Yes [id number] [id number] 325mg Take 1 tablet by mouth 2 (two) times daily before breakfast and dinner. [facility] metoprolol tartrate 25 mg tablet 01-26 00:00: 00 Yes [id number] 25mg Take 1 tablet by mouth every 12 (twelve) hours. [facility] ferrous sulfate 325 mg (65 mg iron) tablet 01-26 00:00: 00 Yes [id number] 325mg Take 1 tablet by mouth 2 (two) times daily before breakfast and dinner. [facility] metoprolol tartrate 25 mg tablet 01-26 00:00: 00 Yes [id number] [id number] 25mg Take 1 tablet by mouth every 12 (twelve) hours. [facility] ferrous sulfate 325 mg (65 mg iron) tablet 01-26 00:00: 00 Yes [id number] 325mg Take 1 tablet by mouth 2 (two) times daily before breakfast and dinner. [facility] metoprolol tartrate 25 mg tablet 01-26 00:00: 00 Yes [id number] 25mg Take 1 tablet by mouth every 12 (twelve) hours. [facility] ferrous sulfate 325 mg (65 mg iron) tablet 01-26 00:00: 00 Yes [id number] 325mg Take 1 tablet by mouth 2 (two) times daily before breakfast and dinner. [facility] metoprolol tartrate 25 mg tablet 01-26 00:00: 00 Yes [id number] 25mg Take 1 tablet by mouth every 12 (twelve) hours. [facility] ferrous sulfate 325 mg (65 mg iron) tablet 01-26 00:00: 00 Yes [id number] 325mg Take 1 tablet by mouth 2 (two) times daily before breakfast and dinner. [facility] metoprolol tartrate 25 mg tablet 01-26 00:00: 00 Yes [id number] 25mg Take 1 tablet by mouth every 12 (twelve) hours. [facility] ferrous sulfate 325 mg (65 mg iron) tablet 01-26 00:00: 00 Yes [id number] 325mg Take 1 tablet by mouth 2 (two) times daily before breakfast and dinner. [facility] metoprolol tartrate 25 mg tablet 01-26 00:00: 00 Yes [id number] 25mg Take 1 tablet by mouth every 12 (twelve) hours. [facility] ferrous sulfate 325 mg (65 mg iron) tablet 01-26 00:00: 00 Yes [id number] 325mg Take 1 tablet by mouth 2 (two) times daily before breakfast and dinner. [facility] metoprolol tartrate 25 mg tablet 01-26 00:00: 00 Yes [id number] 25mg Take 1 tablet by mouth every 12 (twelve) hours. [facility] ferrous sulfate 325 mg (65 mg iron) tablet 01-26 00:00: 00 Yes [id number] [id number] 325mg Take 1 tablet by mouth 2 (two) times daily before breakfast and dinner. [facility] metoprolol tartrate 25 mg tablet 01-26 00:00: 00 Yes [id number] 25mg Take 1 tablet by mouth every 12 (twelve) hours. [facility] ferrous sulfate 325 mg (65 mg iron) tablet 01-26 00:00: 00 Yes [id number] 325mg Take 1 tablet by mouth 2 (two) times daily before breakfast and dinner. [facility] metoprolol tartrate 25 mg tablet 01-26 00:00: 00 Yes [id number] 25mg Take 1 tablet by mouth every 12 (twelve) hours. [facility] ferrous sulfate 325 mg (65 mg iron) tablet 01-26 00:00: 00 Yes [id number] [id number] 325mg Take 1 tablet by mouth 2 (two) times daily before breakfast and dinner. [facility] metoprolol tartrate 25 mg tablet 01-26 00:00: 00 Yes [id number] 25mg Take 1 tablet by mouth every 12 (twelve) hours. [facility] ferrous sulfate 325 mg (65 mg iron) tablet 01-26 00:00: 00 Yes [id number] 325mg Take 1 tablet by mouth 2 (two) times daily before breakfast and dinner. [facility] metoprolol tartrate 25 mg tablet 01-26 00:00: 00 Yes [id number] 25mg Take 1 tablet by mouth every 12 (twelve) hours. [facility] ferrous sulfate 325 mg (65 mg iron) tablet 01-26 00:00: 00 Yes [id number] [id number] 325mg Take 1 tablet by mouth 2 (two) times daily before breakfast and dinner. [facility] metoprolol tartrate 25 mg tablet 01-26 00:00: 00 Yes [id number] [id number] 25mg Take 1 tablet by mouth every 12 (twelve) hours. [facility] ferrous sulfate 325 mg (65 mg iron) tablet 01-26 00:00: 00 Yes [id number] 325mg Take 1 tablet by mouth 2 (two) times daily before breakfast and dinner. [facility] metoprolol tartrate 25 mg tablet 01-26 00:00: 00 Yes [id number] [id number] 25mg Take 1 tablet by mouth every 12 (twelve) hours. [facility] ferrous sulfate 325 mg (65 mg iron) tablet 01-26 00:00: 00 Yes [id number] 325mg Take 1 tablet by mouth 2 (two) times daily before breakfast and dinner. [facility] metoprolol tartrate 25 mg tablet 01-26 00:00: 00 Yes [id number] 25mg Take 1 tablet by mouth every 12 (twelve) hours. [facility] ferrous sulfate 325 mg (65 mg iron) tablet 01-26 00:00: 00 Yes [id number] [id number] 325mg Take 1 tablet by mouth 2 (two) times daily before breakfast and dinner. [facility] metoprolol tartrate 25 mg tablet 01-26 00:00: 00 Yes [id number] 25mg Take 1 tablet by mouth every 12 (twelve) hours. [facility] ferrous sulfate 325 mg (65 mg iron) tablet 0 01-26 00:00: 00 Yes [id number] 325mg Take 1 tablet by mouth 2 (two) times daily before breakfast and dinner. [facility] metoprolol tartrate 25 mg tablet 01-26 00:00: 00 Yes [id number] 25mg Take 1 tablet by mouth every 12 (twelve) hours. [facility] ferrous sulfate 325 mg (65 mg iron) tablet 01-26 00:00: 00 Yes [id number] 325mg Take 1 tablet by mouth 2 (two) times daily before breakfast and dinner. [facility] metoprolol tartrate 25 mg tablet 01-26 00:00: 00 Yes [id number] 25mg Take 1 tablet by mouth every 12 (twelve) hours. [facility] ferrous sulfate 325 mg (65 mg iron) tablet 01-26 00:00: 00 Yes [id number] [id number] 325mg Take 1 tablet by mouth 2 (two) times daily before breakfast and dinner. [facility] metoprolol tartrate 25 mg tablet 01-26 00:00: 00 Yes [id number] 25mg Take 1 tablet by mouth every 12 (twelve) hours. [facility] ferrous sulfate 325 mg (65 mg iron) tablet 01-26 00:00: 00 Yes [id number] 325mg Take 1 tablet by mouth 2 (two) times daily before breakfast and dinner. [facility] metoprolol tartrate 25 mg tablet 01-26 00:00: 00 Yes [id number] [id number] 25mg Take 1 tablet by mouth every 12 (twelve) hours. [facility] ferrous sulfate 325 mg (65 mg iron) tablet 01-26 00:00: 00 Yes [id number] 325mg Take 1 tablet by mouth 2 (two) times daily before breakfast and dinner. [facility] metoprolol tartrate 25 mg tablet 01-26 00:00: 00 Yes [id number] 25mg Take 1 tablet by mouth every 12 (twelve) hours. [facility] ferrous sulfate 325 mg (65 mg iron) tablet 01-26 00:00: 00 Yes [id number] 325mg Take 1 tablet by mouth 2 (two) times daily before breakfast and dinner. [facility] metoprolol tartrate 25 mg tablet 01-26 00:00: 00 Yes [id number] 25mg Take 1 tablet by mouth every 12 (twelve) hours. [facility] ferrous sulfate 325 mg (65 mg iron) tablet 01-26 00:00: 00 Yes [id number] [id number] 325mg Take 1 tablet by mouth 2 (two) times daily before breakfast and dinner. [facility] metoprolol tartrate 25 mg tablet 01-26 00:00: 00 Yes [id number] 25mg Take 1 tablet by mouth every 12 (twelve) hours. [facility] ferrous sulfate 325 mg (65 mg iron) tablet 01-26 00:00: 00 Yes [id number] [id number] 325mg Take 1 tablet by mouth 2 (two) times daily before breakfast and dinner. [facility] metoprolol tartrate 25 mg tablet 01-26 00:00: 00 Yes [id number] [id number] 25mg Take 1 tablet by mouth every 12 (twelve) hours. [facility] ferrous sulfate 325 mg (65 mg iron) tablet 01-26 00:00: 00 Yes [id number] [id number] 325mg Take 1 tablet by mouth 2 (two) times daily before breakfast and dinner. [facility] metoprolol tartrate 25 mg tablet 01-26 00:00: 00 Yes [id number] 25mg Take 1 tablet by mouth every 12 (twelve) hours. [facility] ferrous sulfate 325 mg (65 mg iron) tablet 01-26 00:00: 00 Yes [id number] [id number] 325mg Take 1 tablet by mouth 2 (two) times daily before breakfast and dinner. [facility] metoprolol tartrate 25 mg tablet 01-26 00:00: 00 Yes [id number] 25mg Take 1 tablet by mouth every 12 (twelve) hours. [facility] ferrous sulfate 325 mg (65 mg iron) tablet 01-26 00:00: 00 Yes [id number] [id number] 325mg Take 1 tablet by mouth 2 (two) times daily before breakfast and dinner. [facility] metoprolol tartrate 25 mg tablet 01-26 00:00: 00 Yes [id number] 25mg Take 1 tablet by mouth every 12 (twelve) hours. [facility] ferrous sulfate 325 mg (65 mg iron) tablet 01-26 00:00: 00 Yes [id number] [id number] 325mg Take 1 tablet by mouth 2 (two) times daily before breakfast and dinner. [facility] metoprolol tartrate 25 mg tablet 01-26 00:00: 00 Yes [id number] 25mg Take 1 tablet by mouth every 12 (twelve) hours. [facility] ferrous sulfate 325 mg (65 mg iron) tablet 01-26 00:00: 00 Yes [id number] 325mg Take 1 tablet by mouth 2 (two) times daily before breakfast and dinner. [facility] metoprolol tartrate 25 mg tablet 01-26 00:00: 00 Yes [id number] 25mg Take 1 tablet by mouth every 12 (twelve) hours. [facility] ferrous sulfate 325 mg (65 mg iron) tablet 01-26 00:00: 00 Yes [id number] [id number] 325mg Take 1 tablet by mouth 2 (two) times daily before breakfast and dinner. [facility] metoprolol tartrate 25 mg tablet 01-26 00:00: 00 Yes [id number] 25mg Take 1 tablet by mouth every 12 (twelve) hours. [facility] ferrous sulfate 325 mg (65 mg iron) tablet 01-26 00:00: 00 Yes [id number] 325mg Take 1 tablet by mouth 2 (two) times daily before breakfast and dinner. [facility] metoprolol tartrate 25 mg tablet 01-26 00:00: 00 Yes [id number] [id number] 25mg Take 1 tablet by mouth every 12 (twelve) hours. [facility] ferrous sulfate 325 mg (65 mg iron) tablet 01-26 00:00: 00 Yes [id number] 325mg Take 1 tablet by mouth 2 (two) times daily before breakfast and dinner. [facility] metoprolol tartrate 25 mg tablet 01-26 00:00: 00 Yes [id number] [id number] 25mg Take 1 tablet by mouth every 12 (twelve) hours. [facility] ferrous sulfate 325 mg (65 mg iron) tablet 01-26 00:00: 00 Yes [id number] [id number] 325mg Take 1 tablet by mouth 2 (two) times daily before breakfast and dinner. [facility] metoprolol tartrate 25 mg tablet 01-26 00:00: 00 Yes [id number] 25mg Take 1 tablet by mouth every 12 (twelve) hours. [facility] ferrous sulfate 325 mg (65 mg iron) tablet 01-26 00:00: 00 Yes [id number] 325mg Take 1 tablet by mouth 2 (two) times daily before breakfast and dinner. [facility] metoprolol tartrate 25 mg tablet 01-26 00:00: 00 Yes [id number] 25mg Take 1 tablet by mouth every 12 (twelve) hours. [facility] ferrous sulfate 325 mg (65 mg iron) tablet 01-26 00:00: 00 Yes [id number] 325mg Take 1 tablet by mouth 2 (two) times daily before breakfast and dinner. [facility] metoprolol tartrate 25 mg tablet 01-26 00:00: 00 Yes [id number] 25mg Take 1 tablet by mouth every 12 (twelve) hours. [facility] ferrous sulfate 325 mg (65 mg iron) tablet 01-26 00:00: 00 Yes [id number] 325mg Take 1 tablet by mouth 2 (two) times daily before breakfast and dinner. [facility] metoprolol tartrate 25 mg tablet 01-26 00:00: 00 Yes [id number] 25mg Take 1 tablet by mouth every 12 (twelve) hours. [facility] ferrous sulfate 325 mg (65 mg iron) tablet 01-26 00:00: 00 Yes [id number] 325mg Take 1 tablet by mouth 2 (two) times daily before breakfast and dinner. [facility] metoprolol tartrate 25 mg tablet 01-26 00:00: 00 Yes [id number] 25mg Take 1 tablet by mouth every 12 (twelve) hours. [facility] ferrous sulfate 325 mg (65 mg iron) tablet 01-26 00:00: 00 Yes [id number] 325mg Take 1 tablet by mouth 2 (two) times daily before breakfast and dinner. [facility] metoprolol tartrate 25 mg tablet 01-26 00:00: 00 Yes [id number] 25mg Take 1 tablet by mouth every 12 (twelve) hours. [facility] ferrous sulfate 325 mg (65 mg iron) tablet 01-26 00:00: 00 Yes [id number] 325mg Take 1 tablet by mouth 2 (two) times daily before breakfast and dinner. [facility] metoprolol tartrate 25 mg tablet 01-26 00:00: 00 Yes [id number] 25mg Take 1 tablet by mouth every 12 (twelve) hours. [facility] ferrous sulfate 325 mg (65 mg iron) tablet 01-26 00:00: 00 Yes [id number] 325mg Take 1 tablet by mouth 2 (two) times daily before breakfast and dinner. [facility] metoprolol tartrate 25 mg tablet 01-26 00:00: 00 Yes [id number] 25mg Take 1 tablet by mouth every 12 (twelve) hours. [facility] ferrous sulfate 325 mg (65 mg iron) tablet 01-26 00:00: 00 Yes [id number] 325mg Take 1 tablet by mouth 2 (two) times daily before breakfast and dinner. [facility] metoprolol tartrate 25 mg tablet 01-26 00:00: 00 Yes [id number] 25mg Take 1 tablet by mouth every 12 (twelve) hours. [facility] ferrous sulfate 325 mg (65 mg iron) tablet 01-26 00:00: 00 Yes [id number] 325mg Take 1 tablet by mouth 2 (two) times daily before breakfast and dinner. [facility] metoprolol tartrate 25 mg tablet 01-26 00:00: 00 Yes [id number] 25mg Take 1 tablet by mouth every 12 (twelve) hours. [facility] ferrous sulfate 325 mg (65 mg iron) tablet 01-26 00:00: 00 Yes [id number] 325mg Take 1 tablet by mouth 2 (two) times daily before breakfast and dinner. [facility] metoprolol tartrate 25 mg tablet 01-26 00:00: 00 Yes [id number] 25mg Take 1 tablet by mouth every 12 (twelve) hours. [facility] ferrous sulfate 325 mg (65 mg iron) tablet 01-26 00:00: 00 Yes [id number] 325mg Take 1 tablet by mouth 2 (two) times daily before breakfast and dinner. [facility] metoprolol tartrate 25 mg tablet 01-26 00:00: 00 Yes [id number] 25mg Take 1 tablet by mouth every 12 (twelve) hours. [facility] ferrous sulfate 325 mg (65 mg iron) tablet 01-26 00:00: 00 Yes [id number] 325mg Take 1 tablet by mouth 2 (two) times daily before breakfast and dinner. [facility] metoprolol tartrate 25 mg tablet 01-26 00:00: 00 Yes [id number] 25mg Take 1 tablet by mouth every 12 (twelve) hours. [facility] ferrous sulfate 325 mg (65 mg iron) tablet 01-26 00:00: 00 Yes [id number] 325mg Take 1 tablet by mouth 2 (two) times daily before breakfast and dinner. [facility] metoprolol tartrate 25 mg tablet 01-26 00:00: 00 Yes [id number] 25mg Take 1 tablet by mouth every 12 (twelve) hours. [facility] ferrous sulfate 325 mg (65 mg iron) tablet 01-26 00:00: 00 Yes [id number] 325mg Take 1 tablet by mouth 2 (two) times daily before breakfast and dinner. [facility] metoprolol tartrate 25 mg tablet 01-26 00:00: 00 Yes [id number] 25mg Take 1 tablet by mouth every 12 (twelve) hours. [facility] ferrous sulfate 325 mg (65 mg iron) tablet 01-26 00:00: 00 Yes [id number] 325mg Take 1 tablet by mouth 2 (two) times daily before breakfast and dinner. [facility] metoprolol tartrate 25 mg tablet 01-26 00:00: 00 Yes [id number] 25mg Take 1 tablet by mouth every 12 (twelve) hours. [facility] ferrous sulfate 325 mg (65 mg iron) tablet 01-26 00:00: 00 Yes [id number] 325mg Take 1 tablet by mouth 2 (two) times daily before breakfast and dinner. [facility] metoprolol tartrate 25 mg tablet 01-26 00:00: 00 Yes [id number] 25mg Take 1 tablet by mouth every 12 (twelve) hours. [facility] ferrous sulfate 325 mg (65 mg iron) tablet 01-26 00:00: 00 Yes [id number] 325mg Take 1 tablet by mouth 2 (two) times daily before breakfast and dinner. [facility] metoprolol tartrate 25 mg tablet 01-26 00:00: 00 Yes [id number] 25mg Take 1 tablet by mouth every 12 (twelve) hours. [facility] ferrous sulfate 325 mg (65 mg iron) tablet 0 01-26 00:00: 00 Yes [id number] 325mg Take 1 tablet by mouth 2 (two) times daily before breakfast and dinner. [facility] metoprolol tartrate 25 mg tablet 01-26 00:00: 00 Yes [id number] 25mg Take 1 tablet by mouth every 12 (twelve) hours. [facility] ferrous sulfate 325 mg (65 mg iron) tablet 01-26 00:00: 00 Yes [id number] 325mg Take 1 tablet by mouth 2 (two) times daily before breakfast and dinner. [facility] metoprolol tartrate 25 mg tablet 01-26 00:00: 00 Yes [id number] 25mg Take 1 tablet by mouth every 12 (twelve) hours. [facility] ferrous sulfate 325 mg (65 mg iron) tablet 01-26 00:00: 00 Yes [id number] 325mg Take 1 tablet by mouth 2 (two) times daily before breakfast and dinner. [facility] metoprolol tartrate 25 mg tablet 01-26 00:00: 00 Yes [id number] 25mg Take 1 tablet by mouth every 12 (twelve) hours. [facility] ferrous sulfate 325 mg (65 mg iron) tablet 01-26 00:00: 00 Yes [id number] 325mg Take 1 tablet by mouth 2 (two) times daily before breakfast and dinner. [facility] metoprolol tartrate 25 mg tablet 01-26 00:00: 00 Yes [id number] 25mg Take 1 tablet by mouth every 12 (twelve) hours. [facility] ferrous sulfate 325 mg (65 mg iron) tablet 01-26 00:00: 00 Yes [id number] [id number] 325mg Take 1 tablet by mouth 2 (two) times daily before breakfast and dinner. [facility] metoprolol tartrate 25 mg tablet 01-26 00:00: 00 Yes [id number] 25mg Take 1 tablet by mouth every 12 (twelve) hours. [facility] ferrous sulfate 325 mg (65 mg iron) tablet 01-26 00:00: 00 Yes [id number] 325mg Take 1 tablet by mouth 2 (two) times daily before breakfast and dinner. [facility] metoprolol tartrate 25 mg tablet 01-26 00:00: 00 Yes [id number] 25mg Take 1 tablet by mouth every 12 (twelve) hours. [facility] ferrous sulfate 325 mg (65 mg iron) tablet 01-26 00:00: 00 Yes [id number] 325mg Take 1 tablet by mouth 2 (two) times daily before breakfast and dinner. [facility] metoprolol tartrate 25 mg tablet 01-26 00:00: 00 Yes [id number] 25mg Take 1 tablet by mouth every 12 (twelve) hours. [facility] ferrous sulfate 325 mg (65 mg iron) tablet 01-26 00:00: 00 Yes [id number] 325mg Take 1 tablet by mouth 2 (two) times daily before breakfast and dinner. [facility] metoprolol tartrate 25 mg tablet 01-26 00:00: 00 Yes [id number] 25mg Take 1 tablet by mouth every 12 (twelve) hours. [facility] ferrous sulfate 325 mg (65 mg iron) tablet 01-26 00:00: 00 Yes [id number] 325mg Take 1 tablet by mouth 2 (two) times daily before breakfast and dinner. [facility] metoprolol tartrate 25 mg tablet 01-26 00:00: 00 Yes [id number] 25mg Take 1 tablet by mouth every 12 (twelve) hours. [facility] ferrous sulfate 325 mg (65 mg iron) tablet 01-26 00:00: 00 Yes [id number] 325mg Take 1 tablet by mouth 2 (two) times daily before breakfast and dinner. [facility] metoprolol tartrate 25 mg tablet 01-26 00:00: 00 Yes [id number] 25mg Take 1 tablet by mouth every 12 (twelve) hours. [facility] ferrous sulfate 325 mg (65 mg iron) tablet 01-26 00:00: 00 Yes [id number] 325mg Take 1 tablet by mouth 2 (two) times daily before breakfast and dinner. [facility] metoprolol tartrate 25 mg tablet 01-26 00:00: 00 Yes [id number] 25mg Take 1 tablet by mouth every 12 (twelve) hours. [facility] ferrous sulfate 325 mg (65 mg iron) tablet 01-26 00:00: 00 Yes [id number] 325mg Take 1 tablet by mouth 2 (two) times daily before breakfast and dinner. [facility] metoprolol tartrate 25 mg tablet 01-26 00:00: 00 Yes [id number] 25mg Take 1 tablet by mouth every 12 (twelve) hours. [facility] ferrous sulfate 325 mg (65 mg iron) tablet 01-26 00:00: 00 Yes [id number] 325mg Take 1 tablet by mouth 2 (two) times daily before breakfast and dinner. [facility] metoprolol tartrate 25 mg tablet 01-26 00:00: 00 Yes [id number] 25mg Take 1 tablet by mouth every 12 (twelve) hours. [facility] ferrous sulfate 325 mg (65 mg iron) tablet 01-26 00:00: 00 Yes [id number] 325mg Take 1 tablet by mouth 2 (two) times daily before breakfast and dinner. [facility] metoprolol tartrate 25 mg tablet 01-26 00:00: 00 Yes [id number] 25mg Take 1 tablet by mouth every 12 (twelve) hours. [facility] ferrous sulfate 325 mg (65 mg iron) tablet 01-26 00:00: 00 Yes [id number] 325mg Take 1 tablet by mouth 2 (two) times daily before breakfast and dinner. [facility] metoprolol tartrate 25 mg tablet 01-26 00:00: 00 Yes [id number] 25mg Take 1 tablet by mouth every 12 (twelve) hours. [facility] ferrous sulfate 325 mg (65 mg iron) tablet 01-26 00:00: 00 Yes [id number] 325mg Take 1 tablet by mouth 2 (two) times daily before breakfast and dinner. [facility] metoprolol tartrate 25 mg tablet 01-26 00:00: 00 Yes [id number] 25mg Take 1 tablet by mouth every 12 (twelve) hours. [facility] ferrous sulfate 325 mg (65 mg iron) tablet 01-26 00:00: 00 Yes [id number] 325mg Take 1 tablet by mouth 2 (two) times daily before breakfast and dinner. [facility] metoprolol tartrate 25 mg tablet 01-26 00:00: 00 Yes [id number] 25mg Take 1 tablet by mouth every 12 (twelve) hours. [facility] ferrous sulfate 325 mg (65 mg iron) tablet 01-26 00:00: 00 Yes [id number] 325mg Take 1 tablet by mouth 2 (two) times daily before breakfast and dinner. [facility] metoprolol tartrate 25 mg tablet 01-26 00:00: 00 Yes [id number] 25mg Take 1 tablet by mouth every 12 (twelve) hours. [facility] ferrous sulfate 325 mg (65 mg iron) tablet 01-26 00:00: 00 Yes [id number] 325mg Take 1 tablet by mouth 2 (two) times daily before breakfast and dinner. [facility] metoprolol tartrate 25 mg tablet 01-26 00:00: 00 Yes [id number] 25mg Take 1 tablet by mouth every 12 (twelve) hours. [facility] ferrous sulfate 325 mg (65 mg iron) tablet 01-26 00:00: 00 Yes [id number] 325mg Take 1 tablet by mouth 2 (two) times daily before breakfast and dinner. [facility] metoprolol tartrate 25 mg tablet 01-26 00:00: 00 Yes [id number] 25mg Take 1 tablet by mouth every 12 (twelve) hours. [facility] ferrous sulfate 325 mg (65 mg iron) tablet 01-26 00:00: 00 Yes [id number] 325mg Take 1 tablet by mouth 2 (two) times daily before breakfast and dinner. [facility] metoprolol tartrate 25 mg tablet 01-26 00:00: 00 Yes [id number] 25mg Take 1 tablet by mouth every 12 (twelve) hours. [facility] ferrous sulfate 325 mg (65 mg iron) tablet 01-26 00:00: 00 Yes [id number] 325mg Take 1 tablet by mouth 2 (two) times daily before breakfast and dinner. [facility] metoprolol tartrate 25 mg tablet 01-26 00:00: 00 Yes [id number] 25mg Take 1 tablet by mouth every 12 (twelve) hours. [facility] ferrous sulfate 325 mg (65 mg iron) tablet 01-26 00:00: 00 Yes [id number] 325mg Take 1 tablet by mouth 2 (two) times daily before breakfast and dinner. [facility] metoprolol tartrate 25 mg tablet 01-26 00:00: 00 Yes [id number] 25mg Take 1 tablet by mouth every 12 (twelve) hours. [facility] ferrous sulfate 325 mg (65 mg iron) tablet 01-26 00:00: 00 Yes [id number] 325mg Take 1 tablet by mouth 2 (two) times daily before breakfast and dinner. [facility] metoprolol tartrate 25 mg tablet 01-26 00:00: 00 Yes [id number] 25mg Take 1 tablet by mouth every 12 (twelve) hours. [facility] ferrous sulfate 325 mg (65 mg iron) tablet 01-26 00:00: 00 Yes [id number] 325mg Take 1 tablet by mouth 2 (two) times daily before breakfast and dinner. [facility] metoprolol tartrate 25 mg tablet 01-26 00:00: 00 Yes [id number] 25mg Take 1 tablet by mouth every 12 (twelve) hours. [facility] ferrous sulfate 325 mg (65 mg iron) tablet 01-26 00:00: 00 Yes [id number] 325mg Take 1 tablet by mouth 2 (two) times daily before breakfast and dinner. [facility] metoprolol tartrate 25 mg tablet 01-26 00:00: 00 Yes [id number] 25mg Take 1 tablet by mouth every 12 (twelve) hours. [facility] ferrous sulfate 325 mg (65 mg iron) tablet 01-26 00:00: 00 Yes [id number] 325mg Take 1 tablet by mouth 2 (two) times daily before breakfast and dinner. [facility] metoprolol tartrate 25 mg tablet 01-26 00:00: 00 Yes [id number] 25mg Take 1 tablet by mouth every 12 (twelve) hours. [facility] ferrous sulfate 325 mg (65 mg iron) tablet 01-26 00:00: 00 Yes [id number] 325mg Take 1 tablet by mouth 2 (two) times daily before breakfast and dinner. [facility] metoprolol tartrate 25 mg tablet 01-26 00:00: 00 Yes [id number] 25mg Take 1 tablet by mouth every 12 (twelve) hours. [facility] ferrous sulfate 325 mg (65 mg iron) tablet 01-26 00:00: 00 Yes [id number] 325mg Take 1 tablet by mouth 2 (two) times daily before breakfast and dinner. [facility] metoprolol tartrate 25 mg tablet 01-26 00:00: 00 Yes [id number] 25mg Take 1 tablet by mouth every 12 (twelve) hours. [facility] ferrous sulfate 325 mg (65 mg iron) tablet 01-26 00:00: 00 Yes [id number] 325mg Take 1 tablet by mouth 2 (two) times daily before breakfast and dinner. [facility] metoprolol tartrate 25 mg tablet 01-26 00:00: 00 Yes [id number] 25mg Take 1 tablet by mouth every 12 (twelve) hours. [facility] ferrous sulfate 325 mg (65 mg iron) tablet 01-26 00:00: 00 Yes [id number] 325mg Take 1 tablet by mouth 2 (two) times daily before breakfast and dinner. [facility] metoprolol tartrate 25 mg tablet 01-26 00:00: 00 Yes [id number] 25mg Take 1 tablet by mouth every 12 (twelve) hours. [facility] ferrous sulfate 325 mg (65 mg iron) tablet 01-26 00:00: 00 Yes [id number] [id number] 325mg Take 1 tablet by mouth 2 (two) times daily before breakfast and dinner. [facility] metoprolol tartrate 25 mg tablet 01-26 00:00: 00 Yes [id number] 25mg Take 1 tablet by mouth every 12 (twelve) hours. [facility] ferrous sulfate 325 mg (65 mg iron) tablet 01-26 00:00: 00 Yes [id number] 325mg Take 1 tablet by mouth 2 (two) times daily before breakfast and dinner. [facility] metoprolol tartrate 25 mg tablet 01-26 00:00: 00 Yes [id number] [id number] 25mg Take 1 tablet by mouth every 12 (twelve) hours. [facility] ferrous sulfate 325 mg (65 mg iron) tablet 01-26 00:00: 00 Yes [id number] [id number] 325mg Take 1 tablet by mouth 2 (two) times daily before breakfast and dinner. [facility] metoprolol tartrate 25 mg tablet 01-26 00:00: 00 Yes [id number] [id number] 25mg Take 1 tablet by mouth every 12 (twelve) hours. [facility] ferrous sulfate 325 mg (65 mg iron) tablet 01-26 00:00: 00 Yes [id number] [id number] 325mg Take 1 tablet by mouth 2 (two) times daily before breakfast and dinner. [facility] metoprolol tartrate 25 mg tablet 01-26 00:00: 00 Yes [id number] 25mg Take 1 tablet by mouth every 12 (twelve) hours. [facility] ferrous sulfate 325 mg (65 mg iron) tablet 01-26 00:00: 00 Yes [id number] [id number] 325mg Take 1 tablet by mouth 2 (two) times daily before breakfast and dinner. [facility] metoprolol tartrate 25 mg tablet 01-26 00:00: 00 Yes [id number] 25mg Take 1 tablet by mouth every 12 (twelve) hours. [facility] ferrous sulfate 325 mg (65 mg iron) tablet 01-26 00:00: 00 Yes [id number] 325mg Take 1 tablet by mouth 2 (two) times daily before breakfast and dinner. [facility] ferrous sulfate 325 mg (65 mg iron) tablet 01-26 00:00: 00 Yes [id number] [id number] 325mg Take 1 tablet by mouth 2 (two) times daily before breakfast and dinner. [facility] ferrous sulfate 325 mg (65 mg iron) tablet 01-26 00:00: 00 Yes [id number] 325mg Take 1 tablet by mouth 2 (two) times daily before breakfast and dinner. [facility] ferrous sulfate 325 mg (65 mg iron) tablet 01-26 00:00: 00 Yes [id number] 325mg Take 1 tablet by mouth 2 (two) times daily before breakfast and dinner. [facility] ferrous sulfate 325 mg (65 mg iron) tablet 01-26 00:00: 00 Yes [id number] 325mg Take 1 tablet by mouth 2 (two) times daily before breakfast and dinner. [facility] ferrous sulfate 325 mg (65 mg iron) tablet 01-26 00:00: 00 Yes [id number] 9108 325mg Take 1 tablet by mouth 2 (two) times daily before breakfast and dinner. [facility] ferrous sulfate 325 mg (65 mg iron) tablet 01-26 00:00: 00 Yes [id number] [id number] 325mg Take 1 tablet by mouth 2 (two) times daily before breakfast and dinner. [facility] ferrous sulfate 325 mg (65 mg iron) tablet 01-26 00:00: 00 Yes [id number] 325mg Take 1 tablet by mouth 2 (two) times daily before breakfast and dinner. [facility] ferrous sulfate 325 mg (65 mg iron) tablet 01-26 00:00: 00 Yes [id number] 325mg Take 1 tablet by mouth 2 (two) times daily before breakfast and dinner. [facility] ferrous sulfate 325 mg (65 mg iron) tablet 01-26 00:00: 00 Yes [id number] [id number] 325mg Take 1 tablet by mouth 2 (two) times daily before breakfast and dinner. [facility] ferrous sulfate 325 mg (65 mg iron) tablet 01-26 00:00: 00 Yes [id number] 325mg Take 1 tablet by mouth 2 (two) times daily before breakfast and dinner. [facility] ferrous sulfate 325 mg (65 mg iron) tablet 01-26 00:00: 00 Yes [id number] 9108 325mg Take 1 tablet by mouth 2 (two) times daily before breakfast and dinner. [facility] ferrous sulfate 325 mg (65 mg iron) tablet 01-26 00:00: 00 Yes [id number] 9108 325mg Take 1 tablet by mouth 2 (two) times daily before breakfast and dinner. [facility] ferrous sulfate 325 mg (65 mg iron) tablet 01-26 00:00: 00 Yes [id number] 325mg Take 1 tablet by mouth 2 (two) times daily before breakfast and dinner. [facility] ferrous sulfate 325 mg (65 mg iron) tablet 01-26 00:00: 00 Yes [id number] [id number] 325mg Take 1 tablet by mouth 2 (two) times daily before breakfast and dinner. [facility] ferrous sulfate 325 mg (65 mg iron) tablet 01-26 00:00: 00 Yes [id number] [id number] 325mg Take 1 tablet by mouth 2 (two) times daily before breakfast and dinner. [facility] ferrous sulfate 325 mg (65 mg iron) tablet 01-26 00:00: 00 Yes [id number] 9108 325mg Take 1 tablet by mouth 2 (two) times daily before breakfast and dinner. [facility] ferrous sulfate 325 mg (65 mg iron) tablet 01-26 00:00: 00 Yes [id number] [id number] 325mg Take 1 tablet by mouth 2 (two) times daily before breakfast and dinner. [facility] ferrous sulfate 325 mg (65 mg iron) tablet 01-26 00:00: 00 Yes [id number] [id number] 325mg Take 1 tablet by mouth 2 (two) times daily before breakfast and dinner. [facility] ferrous sulfate 325 mg (65 mg iron) tablet 01-26 00:00: 00 Yes [id number] 325mg Take 1 tablet by mouth 2 (two) times daily before breakfast and dinner. [facility] ferrous sulfate 325 mg (65 mg iron) tablet 01-26 00:00: 00 Yes [id number] 9108 325mg Take 1 tablet by mouth 2 (two) times daily before breakfast and dinner. [facility] ferrous sulfate 325 mg (65 mg iron) tablet 01-26 00:00: 00 Yes [id number] [id number] 325mg Take 1 tablet by mouth 2 (two) times daily before breakfast and dinner. [facility] ferrous sulfate 325 mg (65 mg iron) tablet 01-26 00:00: 00 Yes [id number] 325mg Take 1 tablet by mouth 2 (two) times daily before breakfast and dinner. [facility] ferrous sulfate 325 mg (65 mg iron) tablet 01-26 00:00: 00 Yes [id number] [id number] 325mg Take 1 tablet by mouth 2 (two) times daily before breakfast and dinner. [facility] ferrous sulfate 325 mg (65 mg iron) tablet 01-26 00:00: 00 Yes [id number] [id number] 325mg Take 1 tablet by mouth 2 (two) times daily before breakfast and dinner. [facility] ferrous sulfate 325 mg (65 mg iron) tablet 01-26 00:00: 00 Yes [id number] [id number] 325mg Take 1 tablet by mouth 2 (two) times daily before breakfast and dinner. [facility] ferrous sulfate 325 mg (65 mg iron) tablet 01-26 00:00: 00 Yes [id number] [id number] 325mg Take 1 tablet by mouth 2 (two) times daily before breakfast and dinner. [facility] ferrous sulfate 325 mg (65 mg iron) tablet 01-26 00:00: 00 Yes [id number] [id number] 325mg Take 1 tablet by mouth 2 (two) times daily before breakfast and dinner. [facility] ferrous sulfate 325 mg (65 mg iron) tablet 01-26 00:00: 00 Yes [id number] 9108 325mg Take 1 tablet by mouth 2 (two) times daily before breakfast and dinner. [facility] ferrous sulfate 325 mg (65 mg iron) tablet 01-26 00:00: 00 Yes [id number] 9108 325mg Take 1 tablet by mouth 2 (two) times daily before breakfast and dinner. [facility] ferrous sulfate 325 mg (65 mg iron) tablet 01-26 00:00: 00 Yes [id number] 9108 325mg Take 1 tablet by mouth 2 (two) times daily before breakfast and dinner. [facility] ferrous sulfate 325 mg (65 mg iron) tablet 01-26 00:00: 00 Yes [id number] 9108 325mg Take 1 tablet by mouth 2 (two) times daily before breakfast and dinner. [facility] ferrous sulfate 325 mg (65 mg iron) tablet 01-26 00:00: 00 Yes [id number] [id number] 325mg Take 1 tablet by mouth 2 (two) times daily before breakfast and dinner. [facility] ferrous sulfate 325 mg (65 mg iron) tablet 01-26 00:00: 00 Yes [id number] [id number] 325mg Take 1 tablet by mouth 2 (two) times daily before breakfast and dinner. [facility] ferrous sulfate 325 mg (65 mg iron) tablet 01-26 00:00: 00 Yes [id number] 9108 325mg Take 1 tablet by mouth 2 (two) times daily before breakfast and dinner. [facility] ferrous sulfate 325 mg (65 mg iron) tablet 01-26 00:00: 00 Yes [id number] 9108 325mg Take 1 tablet by mouth 2 (two) times daily before breakfast and dinner. [facility] ferrous sulfate 325 mg (65 mg iron) tablet 01-26 00:00: 00 Yes [id number] 325mg Take 1 tablet by mouth 2 (two) times daily before breakfast and dinner. [facility] ferrous sulfate 325 mg (65 mg iron) tablet 01-26 00:00: 00 Yes [id number] 325mg Take 1 tablet by mouth 2 (two) times daily before breakfast and dinner. [facility] ferrous sulfate 325 mg (65 mg iron) tablet 01-26 00:00: 00 Yes [id number] 325mg Take 1 tablet by mouth 2 (two) times daily before breakfast and dinner. [facility] metoprolol tartrate 25 mg tablet 01-26 00:00: 00 09-05 00:00 :00 No [id number] 25mg Take 1 tablet by mouth every 12 (twelve) hours. [facility] metoprolol tartrate 25 mg tablet 01-26 00:00: 00 09-05 00:00 :00 No [id number] 25mg Take 1 tablet by mouth every 12 (twelve) hours. [facility] Bupivicaine [place] Bupivicaine [place] 01-06 00:00: 00 No 2.5mg [facility] Kenalog (Triamcinol one) Kenalog (Triamcinol one) 01-06 00:00: 00 No 40mg [facility] Bupivicaine [place] Bupivicaine [place] 01-06 00:00: 00 No 2.5mg [facility] Kenalog (Triamcinol one) Kenalog (Triamcinol one) 2022-0 6-16 00:00: 00 No 40mg [facility] Bupivicaine [place] Bupivicaine [place] 2021-0 16 00:00: 00 No 2.5mg [facility] Kenalog (Triamcinol one) Kenalog (Triamcinol one) 0 16 00:00: 00 No 40mg [facility] Bupivicaine [place] Bupivicaine [place] 0 16 00:00: 00 No 2.5mg [facility] Kenalog (Triamcinol one) Kenalog (Triamcinol one) 0 16 00:00: 00 No 40mg [facility] Bupivicaine [place] Bupivicaine [place] 0 16 00:00: 00 No 2.5mg [facility] Kenalog (Triamcinol one) Kenalog (Triamcinol one) 0 16 00:00: 00 No 40mg [facility] Bupivicaine [place] Bupivicaine [place] 0 16 00:00: 00 No 2.5mg [facility] Kenalog (Triamcinol one) Kenalog (Triamcinol one) 0 16 00:00: 00 No 40mg [facility] Bupivicaine [place] Bupivicaine [place] 2021-0 16 00:00: 00 No 2.5mg [facility] Kenalog (Triamcinol one) Kenalog (Triamcinol one) 0 16 00:00: 00 No 40mg [facility] Bupivicaine [place] Bupivicaine [place] 2021-0 16 00:00: 00 No 2.5mg [facility] Kenalog (Triamcinol one) Kenalog (Triamcinol one) 2021-0 6-16 00:00: 00 No 40mg [facility] Bupivicaine [place] Bupivicaine [place] 2021-0 16 00:00: 00 No 2.5mg [facility] Kenalog (Triamcinol one) Kenalog (Triamcinol one) 0 16 00:00: 00 No 40mg [facility] Bupivicaine [place] Bupivicaine [place] 2021-0 16 00:00: 00 No 2.5mg [facility] Kenalog (Triamcinol one) Kenalog (Triamcinol one) 0 16 00:00: 00 No 40mg [facility] Bupivicaine [place] Bupivicaine [place] 2021-0 16 00:00: 00 No 2.5mg [facility] Kenalog (Triamcinol one) Kenalog (Triamcinol one) 2021-0 16 00:00: 00 No 40mg [facility] Bupivicaine [place] Bupivicaine [place] 2021-0 16 00:00: 00 No 2.5mg [facility] Kenalog (Triamcinol one) Kenalog (Triamcinol one) 2021-0 16 00:00: 00 No 40mg [facility] Bupivicaine [place] Bupivicaine [place] 2021-0 16 00:00: 00 No 2.5mg [facility] Kenalog (Triamcinol one) Kenalog (Triamcinol one) 0 -16 00:00: 00 No 40mg [facility] Bupivicaine [place] Bupivicaine [place] 2021-0 16 00:00: 00 No 2.5mg [facility] Kenalog (Triamcinol one) Kenalog (Triamcinol one) 2021-0 16 00:00: 00 No 40mg [facility] Bupivicaine [place] Bupivicaine [place] 2-0 6-16 00:00: 00 No 2.5mg [facility] Kenalog (Triamcinol one) Kenalog (Triamcinol one) 0 16 00:00: 00 No 40mg [facility] Bupivicaine [place] Bupivicaine [place] 0 16 00:00: 00 No 2.5mg [facility] Kenalog (Triamcinol one) Kenalog (Triamcinol one) 0 16 00:00: 00 No 40mg [facility] Bupivicaine [place] Bupivicaine [place] 0 16 00:00: 00 No 2.5mg [facility] Kenalog (Triamcinol one) Kenalog (Triamcinol one) 0 16 00:00: 00 No 40mg [facility] Bupivicaine [place] Bupivicaine [place] 0 16 00:00: 00 No 2.5mg [facility] Kenalog (Triamcinol one) Kenalog (Triamcinol one) 0 16 00:00: 00 No 40mg [facility] Bupivicaine [place] Bupivicaine [place] 0 01-06 00:00: 00 No 2.5mg [facility] Kenalog (Triamcinol one) Kenalog (Triamcinol one) 0 16 00:00: 00 No 40mg [facility] Bupivicaine [place] Bupivicaine [place] 0 16 00:00: 00 No 2.5mg [facility] Kenalog (Triamcinol one) Kenalog (Triamcinol one) 0 16 00:00: 00 No 40mg [facility] Bupivicaine [place] Bupivicaine [place] 2021-0 16 00:00: 00 No 2.5mg [facility] Kenalog (Triamcinol one) Kenalog (Triamcinol one) 0 -16 00:00: 00 No 40mg [facility] acetaminoph en-codeine 300-30 mg tablet 2-0 -17 00:00: 00 Yes [facility] acetaminoph en-codeine 300-30 mg tablet 2-0 -17 00:00: 00 Yes [facility] acetaminoph en-codeine 300-30 mg tablet 2-0 -17 00:00: 00 Yes [facility] acetaminoph en-codeine 300-30 mg tablet 2-0 -17 00:00: 00 Yes [facility] acetaminoph en-codeine 300-30 mg tablet 2-0 17 00:00: 00 Yes [facility] acetaminoph en-codeine 300-30 mg tablet 2-0 17 00:00: 00 Yes [facility] acetaminoph en-codeine 300-30 mg tablet 2-0 17 00:00: 00 Yes [facility] acetaminoph en-codeine 300-30 mg tablet 2021-0 17 00:00: 00 Yes [facility] acetaminoph en-codeine 300-30 mg tablet 2-0 17 00:00: 00 Yes [facility] acetaminoph en-codeine 300-30 mg tablet 2021-0 17 00:00: 00 Yes [facility] acetaminoph en-codeine 300-30 mg tablet 2-0 17 00:00: 00 Yes [facility] acetaminoph en-codeine 300-30 mg tablet 2-0 -17 00:00: 00 Yes [facility] acetaminoph en-codeine 300-30 mg tablet 2-0 -17 00:00: 00 Yes [facility] acetaminoph en-codeine 300-30 mg tablet 2-0 -17 00:00: 00 Yes [facility] acetaminoph en-codeine 300-30 mg tablet 2-0 -17 00:00: 00 Yes [facility] acetaminoph en-codeine 300-30 mg tablet 2-0 5-17 00:00: 00 Yes [facility] acetaminoph en-codeine 300-30 mg tablet 2021-0 17 00:00: 00 Yes [facility] acetaminoph en-codeine 300-30 mg tablet 2021-0 17 00:00: 00 Yes [facility] acetaminoph en-codeine 300-30 mg tablet 2021-0 17 00:00: 00 Yes [facility] acetaminoph en-codeine 300-30 mg tablet 2021-0 17 00:00: 00 Yes [facility] acetaminoph en-codeine 300-30 mg tablet 2021-0 17 00:00: 00 Yes [facility] acetaminoph en-codeine 300-30 mg tablet 2021-0 12-07 00:00: 00 Yes [facility] acetaminoph en-codeine 300-30 mg tablet 2021-0 17 00:00: 00 Yes [facility] acetaminoph en-codeine 300-30 mg tablet 2021-0 17 00:00: 00 Yes [facility] acetaminoph en-codeine 300-30 mg tablet 2021-0 17 00:00: 00 Yes [facility] acetaminoph en-codeine 300-30 mg tablet 2021-0 12-07 00:00: 00 Yes [facility] acetaminoph en-codeine 300-30 mg tablet 2021-0 17 00:00: 00 Yes [facility] acetaminoph en-codeine 300-30 mg tablet 2021-0 17 00:00: 00 Yes [facility] acetaminoph en-codeine 300-30 mg tablet 2021-0 17 00:00: 00 Yes [facility] acetaminoph en-codeine 300-30 mg tablet 2021-0 17 00:00: 00 Yes [facility] acetaminoph en-codeine 300-30 mg tablet 2-0 17 00:00: 00 Yes [facility] acetaminoph en-codeine 300-30 mg tablet 2-0 -17 00:00: 00 Yes [facility] acetaminoph en-codeine 300-30 mg tablet 2-0 -17 00:00: 00 Yes [facility] acetaminoph en-codeine 300-30 mg tablet 2-0 -17 00:00: 00 Yes [facility] acetaminoph en-codeine 300-30 mg tablet 2-0 -17 00:00: 00 Yes [facility] acetaminoph en-codeine 300-30 mg tablet 2-0 -17 00:00: 00 Yes [facility] acetaminoph en-codeine 300-30 mg tablet 2-0 -17 00:00: 00 Yes [facility] acetaminoph en-codeine 300-30 mg tablet 2-0 -17 00:00: 00 Yes [facility] acetaminoph en-codeine 300-30 mg tablet 2-0 17 00:00: 00 Yes [facility] acetaminoph en-codeine 300-30 mg tablet 2021-0 -17 00:00: 00 Yes [facility] acetaminoph en-codeine 300-30 mg tablet 2-0 -17 00:00: 00 Yes [facility] acetaminoph en-codeine 300-30 mg tablet 2-0 -17 00:00: 00 Yes [facility] acetaminoph en-codeine 300-30 mg tablet 2-0 -17 00:00: 00 Yes [facility] acetaminoph en-codeine 300-30 mg tablet 2-0 -17 00:00: 00 Yes [facility] acetaminoph en-codeine 300-30 mg tablet 2-0 -17 00:00: 00 Yes [facility] acetaminoph en-codeine 300-30 mg tablet 2-0 -17 00:00: 00 Yes [facility] acetaminoph en-codeine 300-30 mg tablet 2-0 -17 00:00: 00 Yes [facility] acetaminoph en-codeine 300-30 mg tablet 2-0 -17 00:00: 00 Yes [facility] acetaminoph en-codeine 300-30 mg tablet 2-0 -17 00:00: 00 Yes [facility] acetaminoph en-codeine 300-30 mg tablet 2021-0 17 00:00: 00 Yes [facility] acetaminoph en-codeine 300-30 mg tablet 2-0 17 00:00: 00 Yes [facility] acetaminoph en-codeine 300-30 mg tablet 2021-0 17 00:00: 00 Yes [facility] acetaminoph en-codeine 300-30 mg tablet 2021-0 17 00:00: 00 Yes [facility] acetaminoph en-codeine 300-30 mg tablet 2021-0 17 00:00: 00 Yes [facility] acetaminoph en-codeine 300-30 mg tablet 2021-0 17 00:00: 00 Yes [facility] acetaminoph en-codeine 300-30 mg tablet 2021-0 17 00:00: 00 Yes [facility] acetaminoph en-codeine 300-30 mg tablet 2021-0 17 00:00: 00 Yes [facility] acetaminoph en-codeine 300-30 mg tablet 2-0 17 00:00: 00 Yes [facility] acetaminoph en-codeine 300-30 mg tablet 2-0 -17 00:00: 00 Yes [facility] acetaminoph en-codeine 300-30 mg tablet 2-0 -17 00:00: 00 Yes [facility] acetaminoph en-codeine 300-30 mg tablet 2-0 -17 00:00: 00 Yes [facility] acetaminoph en-codeine 300-30 mg tablet 2-0 -17 00:00: 00 Yes [facility] acetaminoph en-codeine 300-30 mg tablet 2-0 5-17 00:00: 00 Yes [facility] acetaminoph en-codeine 300-30 mg tablet 2021-0 17 00:00: 00 Yes [facility] acetaminoph en-codeine 300-30 mg tablet 2021-0 17 00:00: 00 Yes [facility] acetaminoph en-codeine 300-30 mg tablet 2-0 17 00:00: 00 Yes [facility] acetaminoph en-codeine 300-30 mg tablet 2021-0 17 00:00: 00 Yes [facility] acetaminoph en-codeine 300-30 mg tablet 2021-0 17 00:00: 00 Yes [facility] acetaminoph en-codeine 300-30 mg tablet 2021-0 17 00:00: 00 Yes [facility] acetaminoph en-codeine 300-30 mg tablet 2021-0 17 00:00: 00 Yes [facility] acetaminoph en-codeine 300-30 mg tablet 2021-0 17 00:00: 00 Yes [facility] acetaminoph en-codeine 300-30 mg tablet 2021-0 17 00:00: 00 Yes [facility] acetaminoph en-codeine 300-30 mg tablet 2021-0 17 00:00: 00 Yes [facility] acetaminoph en-codeine 300-30 mg tablet 2021-0 17 00:00: 00 Yes [facility] acetaminoph en-codeine 300-30 mg tablet 2021-0 17 00:00: 00 Yes [facility] acetaminoph en-codeine 300-30 mg tablet 2021-0 17 00:00: 00 Yes [facility] acetaminoph en-codeine 300-30 mg tablet 2-0 17 00:00: 00 Yes [facility] acetaminoph en-codeine 300-30 mg tablet 2-0 17 00:00: 00 Yes [facility] acetaminoph en-codeine 300-30 mg tablet 2-0 -17 00:00: 00 Yes [facility] acetaminoph en-codeine 300-30 mg tablet 2-0 -17 00:00: 00 Yes [facility] acetaminoph en-codeine 300-30 mg tablet 2-0 -17 00:00: 00 Yes [facility] acetaminoph en-codeine 300-30 mg tablet 2-0 -17 00:00: 00 Yes [facility] acetaminoph en-codeine 300-30 mg tablet 2-0 -17 00:00: 00 Yes [facility] acetaminoph en-codeine 300-30 mg tablet 2-0 -17 00:00: 00 Yes [facility] acetaminoph en-codeine 300-30 mg tablet 2-0 -17 00:00: 00 Yes [facility] acetaminoph en-codeine 300-30 mg tablet 2-0 -17 00:00: 00 Yes [facility] acetaminoph en-codeine 300-30 mg tablet 2-0 -17 00:00: 00 Yes [facility] acetaminoph en-codeine 300-30 mg tablet 2-0 -17 00:00: 00 Yes [facility] acetaminoph en-codeine 300-30 mg tablet 2-0 -17 00:00: 00 Yes [facility] acetaminoph en-codeine 300-30 mg tablet 2-0 -17 00:00: 00 Yes [facility] acetaminoph en-codeine 300-30 mg tablet 2-0 -17 00:00: 00 Yes [facility] acetaminoph en-codeine 300-30 mg tablet 2-0 -17 00:00: 00 Yes [facility] acetaminoph en-codeine 300-30 mg tablet 2-0 -17 00:00: 00 Yes [facility] acetaminoph en-codeine 300-30 mg tablet 2-0 -17 00:00: 00 Yes [facility] acetaminoph en-codeine 300-30 mg tablet 2021-0 17 00:00: 00 Yes [facility] acetaminoph en-codeine 300-30 mg tablet 2021-0 17 00:00: 00 Yes [facility] acetaminoph en-codeine 300-30 mg tablet 2021-0 17 00:00: 00 Yes [facility] acetaminoph en-codeine 300-30 mg tablet 2021-0 17 00:00: 00 Yes [facility] acetaminoph en-codeine 300-30 mg tablet 2021-0 17 00:00: 00 Yes [facility] acetaminoph en-codeine 300-30 mg tablet 2021-0 17 00:00: 00 Yes [facility] acetaminoph en-codeine 300-30 mg tablet 2021-0 17 00:00: 00 Yes [facility] acetaminoph en-codeine 300-30 mg tablet 2021-0 17 00:00: 00 Yes [facility] acetaminoph en-codeine 300-30 mg tablet 2021-0 17 00:00: 00 Yes [facility] acetaminoph en-codeine 300-30 mg tablet 2021-0 17 00:00: 00 Yes [facility] acetaminoph en-codeine 300-30 mg tablet 2021-0 17 00:00: 00 Yes [facility] acetaminoph en-codeine 300-30 mg tablet 2021-0 17 00:00: 00 Yes [facility] acetaminoph en-codeine 300-30 mg tablet 2021-0 17 00:00: 00 Yes [facility] acetaminoph en-codeine 300-30 mg tablet 2021-0 17 00:00: 00 Yes [facility] acetaminoph en-codeine 300-30 mg tablet 2021-0 17 00:00: 00 Yes [facility] acetaminoph en-codeine 300-30 mg tablet 2021-0 -17 00:00: 00 Yes [facility] acetaminoph en-codeine 300-30 mg tablet 2021-0 -17 00:00: 00 Yes [facility] acetaminoph en-codeine 300-30 mg tablet 2-0 17 00:00: 00 Yes [facility] acetaminoph en-codeine 300-30 mg tablet 2021-0 -17 00:00: 00 Yes [facility] acetaminoph en-codeine 300-30 mg tablet 2-0 17 00:00: 00 Yes [facility] acetaminoph en-codeine 300-30 mg tablet 2021-0 17 00:00: 00 Yes [facility] acetaminoph en-codeine 300-30 mg tablet 2021-0 17 00:00: 00 Yes [facility] acetaminoph en-codeine 300-30 mg tablet 2021-0 17 00:00: 00 Yes [facility] acetaminoph en-codeine 300-30 mg tablet 2021-0 17 00:00: 00 Yes [facility] acetaminoph en-codeine 300-30 mg tablet 2021-0 17 00:00: 00 Yes [facility] acetaminoph en-codeine 300-30 mg tablet 2021-0 17 00:00: 00 Yes [facility] acetaminoph en-codeine 300-30 mg tablet 2021-0 -17 00:00: 00 Yes [facility] acetaminoph en-codeine 300-30 mg tablet 2-0 -17 00:00: 00 Yes [facility] acetaminoph en-codeine 300-30 mg tablet 2-0 -17 00:00: 00 Yes [facility] acetaminoph en-codeine 300-30 mg tablet 2-0 -17 00:00: 00 Yes [facility] acetaminoph en-codeine 300-30 mg tablet 2-0 -17 00:00: 00 Yes [facility] acetaminoph en-codeine 300-30 mg tablet 2-0 -17 00:00: 00 Yes [facility] acetaminoph en-codeine 300-30 mg tablet 2-0 -17 00:00: 00 Yes [facility] acetaminoph en-codeine 300-30 mg tablet 2-0 -17 00:00: 00 Yes [facility] acetaminoph en-codeine 300-30 mg tablet 2-0 -17 00:00: 00 Yes [facility] acetaminoph en-codeine 300-30 mg tablet 2-0 -17 00:00: 00 Yes [facility] acetaminoph en-codeine 300-30 mg tablet 2-0 17 00:00: 00 Yes [facility] acetaminoph en-codeine 300-30 mg tablet 2-0 17 00:00: 00 Yes [facility] acetaminoph en-codeine 300-30 mg tablet 2-0 17 00:00: 00 Yes [facility] acetaminoph en-codeine 300-30 mg tablet 2-0 17 00:00: 00 Yes [facility] acetaminoph en-codeine 300-30 mg tablet 2-0 -17 00:00: 00 Yes [facility] acetaminoph en-codeine 300-30 mg tablet 2-0 -17 00:00: 00 Yes [facility] acetaminoph en-codeine 300-30 mg tablet 2-0 -17 00:00: 00 Yes [facility] acetaminoph en-codeine 300-30 mg tablet 2-0 -17 00:00: 00 Yes [facility] acetaminoph en-codeine 300-30 mg tablet 2-0 -17 00:00: 00 Yes [facility] acetaminoph en-codeine 300-30 mg tablet 2-0 -17 00:00: 00 Yes [facility] acetaminoph en-codeine 300-30 mg tablet 2-0 5-17 00:00: 00 Yes [facility] acetaminoph en-codeine 300-30 mg tablet 2-0 5-17 00:00: 00 Yes [facility] acetaminoph en-codeine 300-30 mg tablet 2021-0 5-17 00:00: 00 Yes [facility] acetaminoph en-codeine 300-30 mg tablet 2-0 5-17 00:00: 00 Yes [facility] acetaminoph en-codeine 300-30 mg tablet 2021-0 5-17 00:00: 00 Yes [facility] acetaminoph en-codeine 300-30 mg tablet 2-0 5-17 00:00: 00 Yes [facility] acetaminoph en-codeine 300-30 mg tablet 2021-0 5-17 00:00: 00 Yes [facility] atorvastati n 40 mg tablet 2-0 -19 00:00: 00 Yes [id number] 40mg Take 1 tablet by mouth at bedtime. [facility] atorvastati n 40 mg tablet 2-0 -19 00:00: 00 Yes [id number] 40mg Take 1 tablet by mouth at bedtime. [facility] atorvastati n 40 mg tablet 2-0 -19 00:00: 00 Yes [id number] 40mg Take 1 tablet by mouth at bedtime. [facility] atorvastati n 40 mg tablet 2-0 4-19 00:00: 00 Yes [id number] 40mg Take 1 tablet by mouth at bedtime. [facility] atorvastati n 40 mg tablet 2-0 4-19 00:00: 00 Yes [id number] 40mg Take 1 tablet by mouth at bedtime. [facility] atorvastati n 40 mg tablet 2-0 4-19 00:00: 00 Yes [id number] 40mg Take 1 tablet by mouth at bedtime. [facility] atorvastati n 40 mg tablet 2-0 4-19 00:00: 00 Yes [id number] 40mg Take 1 tablet by mouth at bedtime. [facility] atorvastati n 40 mg tablet 2021-0 19 00:00: 00 Yes [id number] 40mg Take 1 tablet by mouth at bedtime. [facility] atorvastati n 40 mg tablet 2021-0 419 00:00: 00 Yes [id number] 40mg Take 1 tablet by mouth at bedtime. [facility] atorvastati n 40 mg tablet 2021-0 4-19 00:00: 00 Yes [id number] 40mg Take 1 tablet by mouth at bedtime. [facility] atorvastati n 40 mg tablet 2021-0 19 00:00: 00 Yes [id number] 40mg Take 1 tablet by mouth at bedtime. [facility] atorvastati n 40 mg tablet 2021-0 19 00:00: 00 Yes [id number] 40mg Take 1 tablet by mouth at bedtime. [facility] atorvastati n 40 mg tablet 2021-0 19 00:00: 00 Yes [id number] 40mg Take 1 tablet by mouth at bedtime. [facility] atorvastati n 40 mg tablet 2021-0 19 00:00: 00 Yes [id number] 40mg Take 1 tablet by mouth at bedtime. [facility] atorvastati n 40 mg tablet 2021-0 19 00:00: 00 Yes [id number] 40mg Take 1 tablet by mouth at bedtime. [facility] atorvastati n 40 mg tablet 2021-0 19 00:00: 00 Yes [id number] 40mg Take 1 tablet by mouth at bedtime. [facility] atorvastati n 40 mg tablet 2-0 19 00:00: 00 Yes [id number] 40mg Take 1 tablet by mouth at bedtime. [facility] atorvastati n 40 mg tablet 2-0 4-19 00:00: 00 Yes [id number] 40mg Take 1 tablet by mouth at bedtime. [facility] atorvastati n 40 mg tablet 2-0 4-19 00:00: 00 Yes [id number] 40mg Take 1 tablet by mouth at bedtime. [facility] atorvastati n 40 mg tablet 2-0 4-19 00:00: 00 Yes [id number] 40mg Take 1 tablet by mouth at bedtime. [facility] atorvastati n 40 mg tablet 2021-0 4-19 00:00: 00 Yes [id number] 40mg Take 1 tablet by mouth at bedtime. [facility] atorvastati n 40 mg tablet 2-0 4-19 00:00: 00 Yes [id number] 40mg Take 1 tablet by mouth at bedtime. [facility] atorvastati n 40 mg tablet 2021-0 4-19 00:00: 00 Yes [id number] 40mg Take 1 tablet by mouth at bedtime. [facility] atorvastati n 40 mg tablet 2021-0 4-19 00:00: 00 Yes [id number] 40mg Take 1 tablet by mouth at bedtime. [facility] atorvastati n 40 mg tablet 2021-0 19 00:00: 00 Yes [id number] 40mg Take 1 tablet by mouth at bedtime. [facility] atorvastati n 40 mg tablet 2021-0 19 00:00: 00 Yes [id number] 40mg Take 1 tablet by mouth at bedtime. [facility] atorvastati n 40 mg tablet 2021-0 19 00:00: 00 Yes [id number] 40mg Take 1 tablet by mouth at bedtime. [facility] atorvastati n 40 mg tablet 2021-0 19 00:00: 00 Yes [id number] 40mg Take 1 tablet by mouth at bedtime. [facility] atorvastati n 40 mg tablet 2-0 4-19 00:00: 00 Yes [id number] 40mg Take 1 tablet by mouth at bedtime. [facility] atorvastati n 40 mg tablet 2-0 4-19 00:00: 00 Yes [id number] 40mg Take 1 tablet by mouth at bedtime. [facility] atorvastati n 40 mg tablet 2021-0 11-09 00:00: 00 Yes [id number] 40mg Take 1 tablet by mouth at bedtime. [facility] atorvastati n 40 mg tablet 2021-0 11-09 00:00: 00 Yes [id number] 40mg Take 1 tablet by mouth at bedtime. [facility] atorvastati n 40 mg tablet 2021-0 11-09 00:00: 00 Yes [id number] 40mg Take 1 tablet by mouth at bedtime. [facility] atorvastati n 40 mg tablet 2021-0 11-09 00:00: 00 Yes [id number] 40mg Take 1 tablet by mouth at bedtime. [facility] atorvastati n 40 mg tablet 2021-0 11-09 00:00: 00 Yes [id number] 40mg Take 1 tablet by mouth at bedtime. [facility] atorvastati n 40 mg tablet 2021-0 11-09 00:00: 00 Yes [id number] 40mg Take 1 tablet by mouth at bedtime. [facility] atorvastati n 40 mg tablet 2021-0 11-09 00:00: 00 Yes [id number] 40mg Take 1 tablet by mouth at bedtime. [facility] atorvastati n 40 mg tablet 2021-0 11-09 00:00: 00 Yes [id number] 40mg Take 1 tablet by mouth at bedtime. [facility] atorvastati n 40 mg tablet 2021-0 11-09 00:00: 00 Yes [id number] 40mg Take 1 tablet by mouth at bedtime. [facility] atorvastati n 40 mg tablet 2021-0 11-09 00:00: 00 Yes [id number] 40mg Take 1 tablet by mouth at bedtime. [facility] atorvastati n 40 mg tablet 2021-0 19 00:00: 00 Yes [id number] 40mg Take 1 tablet by mouth at bedtime. [facility] atorvastati n 40 mg tablet 2-0 19 00:00: 00 Yes [id number] 40mg Take 1 tablet by mouth at bedtime. [facility] atorvastati n 40 mg tablet 2-0 19 00:00: 00 Yes [id number] 40mg Take 1 tablet by mouth at bedtime. [facility] atorvastati n 40 mg tablet 2021-0 19 00:00: 00 Yes [id number] 40mg Take 1 tablet by mouth at bedtime. [facility] atorvastati n 40 mg tablet 2021-0 19 00:00: 00 Yes [id number] 40mg Take 1 tablet by mouth at bedtime. [facility] atorvastati n 40 mg tablet 2-0 19 00:00: 00 Yes [id number] 40mg Take 1 tablet by mouth at bedtime. [facility] atorvastati n 40 mg tablet 2021-0 19 00:00: 00 Yes [id number] 40mg Take 1 tablet by mouth at bedtime. [facility] atorvastati n 40 mg tablet 2021-0 19 00:00: 00 Yes [id number] 40mg Take 1 tablet by mouth at bedtime. [facility] atorvastati n 40 mg tablet 2021-0 19 00:00: 00 Yes [id number] 40mg Take 1 tablet by mouth at bedtime. [facility] atorvastati n 40 mg tablet 2021-0 19 00:00: 00 Yes [id number] 40mg Take 1 tablet by mouth at bedtime. [facility] atorvastati n 40 mg tablet 2021-0 19 00:00: 00 Yes [id number] 40mg Take 1 tablet by mouth at bedtime. [facility] atorvastati n 40 mg tablet 2-0 419 00:00: 00 Yes [id number] 40mg Take 1 tablet by mouth at bedtime. [facility] atorvast[facility] n 40 mg tablet 2-0 4-19 00:00: 00 Yes [id number] 40mg Take 1 tablet by mouth at bedtime. [facility] atorvastati n 40 mg tablet 2-0 4-19 00:00: 00 Yes [id number] 40mg Take 1 tablet by mouth at bedtime. [facility] atorvastati n 40 mg tablet 2-0 4-19 00:00: 00 Yes [id number] 40mg Take 1 tablet by mouth at bedtime. [facility] atorvastati n 40 mg tablet 2-0 4-19 00:00: 00 Yes [id number] 40mg Take 1 tablet by mouth at bedtime. [facility] atorvastati n 40 mg tablet 2021-0 4-19 00:00: 00 Yes [id number] 40mg Take 1 tablet by mouth at bedtime. [facility] atorvastati n 40 mg tablet 2-0 4-19 00:00: 00 Yes [id number] 40mg Take 1 tablet by mouth at bedtime. [facility] atorvastati n 40 mg tablet 2-0 19 00:00: 00 Yes [id number] 40mg Take 1 tablet by mouth at bedtime. [facility] atorvastati n 40 mg tablet 2-0 19 00:00: 00 Yes [id number] 40mg Take 1 tablet by mouth at bedtime. [facility] atorvastati n 40 mg tablet 2-0 19 00:00: 00 Yes [id number] 40mg Take 1 tablet by mouth at bedtime. [facility] atorvastati n 40 mg tablet 2-0 19 00:00: 00 Yes [id number] 40mg Take 1 tablet by mouth at bedtime. [facility] atorvastati n 40 mg tablet 2-0 419 00:00: 00 Yes [id number] 40mg Take 1 tablet by mouth at bedtime. [facility] atorvastati n 40 mg tablet 2-0 4-19 00:00: 00 Yes [id number] 40mg Take 1 tablet by mouth at bedtime. [facility] atorvastati n 40 mg tablet 2-0 4-19 00:00: 00 Yes [id number] 40mg Take 1 tablet by mouth at bedtime. [facility] atorvastati n 40 mg tablet 2-0 19 00:00: 00 Yes [id number] 40mg Take 1 tablet by mouth at bedtime. [facility] atorvastati n 40 mg tablet 2021-0 19 00:00: 00 Yes [id number] 40mg Take 1 tablet by mouth at bedtime. [facility] atorvastati n 40 mg tablet 2-0 419 00:00: 00 Yes [id number] 40mg Take 1 tablet by mouth at bedtime. [facility] atorvastati n 40 mg tablet 2021-0 19 00:00: 00 Yes [id number] 40mg Take 1 tablet by mouth at bedtime. [facility] atorvastati n 40 mg tablet 2021-0 19 00:00: 00 Yes [id number] 40mg Take 1 tablet by mouth at bedtime. [facility] atorvastati n 40 mg tablet 2021-0 19 00:00: 00 Yes [id number] 40mg Take 1 tablet by mouth at bedtime. [facility] atorvastati n 40 mg tablet 2021-0 19 00:00: 00 Yes [id number] 40mg Take 1 tablet by mouth at bedtime. [facility] atorvastati n 40 mg tablet 2021-0 19 00:00: 00 Yes [id number] 40mg Take 1 tablet by mouth at bedtime. [facility] atorvastati n 40 mg tablet 2021-0 19 00:00: 00 Yes [id number] 40mg Take 1 tablet by mouth at bedtime. [facility] atorvastati n 40 mg tablet 2-0 19 00:00: 00 Yes [id number] 40mg Take 1 tablet by mouth at bedtime. [facility] atorvastati n 40 mg tablet 2-0 -19 00:00: 00 Yes [id number] 40mg Take 1 tablet by mouth at bedtime. [facility] atorvastati n 40 mg tablet 2-0 4-19 00:00: 00 Yes [id number] 40mg Take 1 tablet by mouth at bedtime. [facility] atorvastati n 40 mg tablet 2-0 19 00:00: 00 Yes [id number] 40mg Take 1 tablet by mouth at bedtime. [facility] atorvastati n 40 mg tablet 2021-0 19 00:00: 00 Yes [id number] 40mg Take 1 tablet by mouth at bedtime. [facility] atorvastati n 40 mg tablet 2021-0 19 00:00: 00 Yes [id number] 40mg Take 1 tablet by mouth at bedtime. [facility] atorvastati n 40 mg tablet 2021-0 19 00:00: 00 Yes [id number] 40mg Take 1 tablet by mouth at bedtime. [facility] atorvastati n 40 mg tablet 2021-0 19 00:00: 00 Yes [id number] 40mg Take 1 tablet by mouth at bedtime. [facility] atorvastati n 40 mg tablet 2021-0 19 00:00: 00 Yes [id number] 40mg Take 1 tablet by mouth at bedtime. [facility] atorvastati n 40 mg tablet 2021-0 19 00:00: 00 Yes [id number] 40mg Take 1 tablet by mouth at bedtime. [facility] atorvastati n 40 mg tablet 2021-0 19 00:00: 00 Yes [id number] 40mg Take 1 tablet by mouth at bedtime. [facility] atorvastati n 40 mg tablet 2021-0 19 00:00: 00 Yes [id number] 40mg Take 1 tablet by mouth at bedtime. [facility] atorvastati n 40 mg tablet 2021-0 419 00:00: 00 Yes [id number] 40mg Take 1 tablet by mouth at bedtime. [facility] atorvastati n 40 mg tablet 2-0 4-19 00:00: 00 Yes [id number] 40mg Take 1 tablet by mouth at bedtime. [facility] atorvastati n 40 mg tablet 2021-0 4-19 00:00: 00 Yes [id number] 40mg Take 1 tablet by mouth at bedtime. [facility] atorvastati n 40 mg tablet 2-0 19 00:00: 00 Yes [id number] 40mg Take 1 tablet by mouth at bedtime. [facility] atorvastati n 40 mg tablet 2-0 19 00:00: 00 Yes [id number] 40mg Take 1 tablet by mouth at bedtime. [facility] atorvastati n 40 mg tablet 2-0 19 00:00: 00 Yes [id number] 40mg Take 1 tablet by mouth at bedtime. [facility] atorvastati n 40 mg tablet 2021-0 11-09 00:00: 00 Yes [id number] 40mg Take 1 tablet by mouth at bedtime. [facility] atorvastati n 40 mg tablet 2-0 11-09 00:00: 00 Yes [id number] 40mg Take 1 tablet by mouth at bedtime. [facility] atorvastati n 40 mg tablet 2021-0 19 00:00: 00 Yes [id number] 40mg Take 1 tablet by mouth at bedtime. [facility] atorvastati n 40 mg tablet 2021-0 19 00:00: 00 Yes [id number] 40mg Take 1 tablet by mouth at bedtime. [facility] atorvastati n 40 mg tablet 2021-0 19 00:00: 00 Yes [id number] 40mg Take 1 tablet by mouth at bedtime. [facility] atorvastati n 40 mg tablet 2-0 19 00:00: 00 Yes [id number] 40mg Take 1 tablet by mouth at bedtime. [facility] atorvastati n 40 mg tablet 2-0 19 00:00: 00 Yes [id number] 40mg Take 1 tablet by mouth at bedtime. [facility] atorvastati n 40 mg tablet 2-0 19 00:00: 00 Yes [id number] 40mg Take 1 tablet by mouth at bedtime. [facility] atorvastati n 40 mg tablet 2021-0 19 00:00: 00 Yes [id number] 40mg Take 1 tablet by mouth at bedtime. [facility] atorvastati n 40 mg tablet 2021-0 19 00:00: 00 Yes [id number] 40mg Take 1 tablet by mouth at bedtime. [facility] atorvastati n 40 mg tablet 2021-0 19 00:00: 00 Yes [id number] 40mg Take 1 tablet by mouth at bedtime. [facility] atorvastati n 40 mg tablet 2021-0 11-09 00:00: 00 Yes [id number] 40mg Take 1 tablet by mouth at bedtime. [facility] atorvastati n 40 mg tablet 2021-0 11-09 00:00: 00 Yes [id number] 40mg Take 1 tablet by mouth at bedtime. [facility] atorvastati n 40 mg tablet 2021-0 11-09 00:00: 00 Yes [id number] 40mg Take 1 tablet by mouth at bedtime. [facility] atorvastati n 40 mg tablet 0 11-09 00:00: 00 Yes [id number] 40mg Take 1 tablet by mouth at bedtime. [facility] atorvastati n 40 mg tablet 0 11-09 00:00: 00 Yes [id number] 40mg Take 1 tablet by mouth at bedtime. [facility] atorvastati n 40 mg tablet 0 19 00:00: 00 09-05 00:00 :00 No [id number] 40mg Take 1 tablet by mouth at bedtime. [facility] atorvastati n 40 mg tablet 2021-0 19 00:00: 00 09-05 00:00 :00 No [id number] 40mg Take 1 tablet by mouth at bedtime. [facility] aspirin 81 mg EC tablet 0 4-06 00:00: 00 Yes [id number] 81mg Take 1 tablet by mouth daily. [facility] aspirin 81 mg EC tablet 0 406 00:00: 00 Yes [id number] 81mg Take 1 tablet by mouth daily. [facility] aspirin 81 mg EC tablet 2021-0 4- 00:00: 00 Yes [id number] 81mg Take 1 tablet by mouth daily. [facility] aspirin 81 mg EC tablet 2021-0 4 00:00: 00 Yes [id number] 81mg Take 1 tablet by mouth daily. [facility] aspirin 81 mg EC tablet 2021-0 4 00:00: 00 Yes [id number] 81mg Take 1 tablet by mouth daily. [facility] aspirin 81 mg EC tablet 2021-0 10-27 00:00: 00 Yes [id number] 81mg Take 1 tablet by mouth daily. [facility] aspirin 81 mg EC tablet 2021-0 10-27 00:00: 00 Yes [id number] 81mg Take 1 tablet by mouth daily. [facility] aspirin 81 mg EC tablet 2021-0 10-27 00:00: 00 Yes [id number] 81mg Take 1 tablet by mouth daily. [facility] aspirin 81 mg EC tablet 2021-0 10-27 00:00: 00 Yes [id number] 81mg Take 1 tablet by mouth daily. [facility] aspirin 81 mg EC tablet 0 10-27 00:00: 00 Yes [id number] 81mg Take 1 tablet by mouth daily. [facility] aspirin 81 mg EC tablet 2021-0 10-27 00:00: 00 Yes [id number] 81mg Take 1 tablet by mouth daily. [facility] aspirin 81 mg EC tablet 2021-0 10-27 00:00: 00 Yes [id number] 81mg Take 1 tablet by mouth daily. [facility] aspirin 81 mg EC tablet 2021-0 10-27 00:00: 00 Yes [id number] 81mg Take 1 tablet by mouth daily. [facility] aspirin 81 mg EC tablet 2021-0 4- 00:00: 00 Yes [id number] 81mg Take 1 tablet by mouth daily. [facility] aspirin 81 mg EC tablet 2022-0 4-06 00:00: 00 Yes [id number] 81mg Take 1 tablet by mouth daily. [facility] aspirin 81 mg EC tablet 0 10-27 00:00: 00 Yes [id number] 81mg Take 1 tablet by mouth daily. [facility] aspirin 81 mg EC tablet 0 10-27 00:00: 00 Yes [id number] 81mg Take 1 tablet by mouth daily. [facility] aspirin 81 mg EC tablet 0 10-27 00:00: 00 Yes [id number] 81mg Take 1 tablet by mouth daily. [facility] aspirin 81 mg EC tablet 0 10-27 00:00: 00 Yes [id number] 81mg Take 1 tablet by mouth daily. [facility] aspirin 81 mg EC tablet 0 10-27 00:00: 00 Yes [id number] 81mg Take 1 tablet by mouth daily. [facility] aspirin 81 mg EC tablet 0 10-27 00:00: 00 Yes [id number] 81mg Take 1 tablet by mouth daily. [facility] aspirin 81 mg EC tablet 0 10-27 00:00: 00 Yes [id number] 81mg Take 1 tablet by mouth daily. [facility] aspirin 81 mg EC tablet 0 10-27 00:00: 00 Yes [id number] 81mg Take 1 tablet by mouth daily. [facility] aspirin 81 mg EC tablet 0 10-27 00:00: 00 Yes [id number] 81mg Take 1 tablet by mouth daily. [facility] aspirin 81 mg EC tablet 0 10-27 00:00: 00 Yes [id number] 81mg Take 1 tablet by mouth daily. [facility] aspirin 81 mg EC tablet 2021-0 10-27 00:00: 00 Yes [id number] 81mg Take 1 tablet by mouth daily. [facility] aspirin 81 mg EC tablet 2021-0 10-27 00:00: 00 Yes [id number] 81mg Take 1 tablet by mouth daily. [facility] aspirin 81 mg EC tablet 2021-0 4-06 00:00: 00 Yes [id number] 81mg Take 1 tablet by mouth daily. [facility] aspirin 81 mg EC tablet 0 10-27 00:00: 00 Yes [id number] 81mg Take 1 tablet by mouth daily. [facility] aspirin 81 mg EC tablet 0 10-27 00:00: 00 Yes [id number] 81mg Take 1 tablet by mouth daily. [facility] aspirin 81 mg EC tablet 0 10-27 00:00: 00 Yes [id number] 81mg Take 1 tablet by mouth daily. [facility] aspirin 81 mg EC tablet 0 10-27 00:00: 00 Yes [id number] 81mg Take 1 tablet by mouth daily. [facility] aspirin 81 mg EC tablet 0 10-27 00:00: 00 Yes [id number] 81mg Take 1 tablet by mouth daily. [facility] aspirin 81 mg EC tablet 0 10-27 00:00: 00 Yes [id number] 81mg Take 1 tablet by mouth daily. [facility] aspirin 81 mg EC tablet 0 10-27 00:00: 00 Yes [id number] 81mg Take 1 tablet by mouth daily. [facility] aspirin 81 mg EC tablet 0 10-27 00:00: 00 Yes [id number] 81mg Take 1 tablet by mouth daily. [facility] aspirin 81 mg EC tablet 0 10-27 00:00: 00 Yes [id number] 81mg Take 1 tablet by mouth daily. [facility] aspirin 81 mg EC tablet 2021-0 10-27 00:00: 00 Yes [id number] 81mg Take 1 tablet by mouth daily. [facility] aspirin 81 mg EC tablet 2021-0 10-27 00:00: 00 Yes [id number] 81mg Take 1 tablet by mouth daily. [facility] aspirin 81 mg EC tablet 2021-0 10-27 00:00: 00 Yes [id number] 81mg Take 1 tablet by mouth daily. [facility] aspirin 81 mg EC tablet 2021-0 10-27 00:00: 00 Yes [id number] 81mg Take 1 tablet by mouth daily. [facility] aspirin 81 mg EC tablet 0 10-27 00:00: 00 Yes [id number] 81mg Take 1 tablet by mouth daily. [facility] aspirin 81 mg EC tablet 0 10-27 00:00: 00 Yes [id number] 81mg Take 1 tablet by mouth daily. [facility] aspirin 81 mg EC tablet 0 10-27 00:00: 00 Yes [id number] 81mg Take 1 tablet by mouth daily. [facility] aspirin 81 mg EC tablet 0 10-27 00:00: 00 Yes [id number] 81mg Take 1 tablet by mouth daily. [facility] aspirin 81 mg EC tablet 0 10-27 00:00: 00 Yes [id number] 81mg Take 1 tablet by mouth daily. [facility] aspirin 81 mg EC tablet 2021-0 10-27 00:00: 00 Yes [id number] 81mg Take 1 tablet by mouth daily. [facility] aspirin 81 mg EC tablet 0 10-27 00:00: 00 Yes [id number] 81mg Take 1 tablet by mouth daily. [facility] aspirin 81 mg EC tablet 0 10-27 00:00: 00 Yes [id number] 81mg Take 1 tablet by mouth daily. [facility] aspirin 81 mg EC tablet 2021-0 10-27 00:00: 00 Yes [id number] 81mg Take 1 tablet by mouth daily. [facility] aspirin 81 mg EC tablet 2021-0 10-27 00:00: 00 Yes [id number] 81mg Take 1 tablet by mouth daily. [facility] aspirin 81 mg EC tablet 2021-0 10-27 00:00: 00 Yes [id number] 81mg Take 1 tablet by mouth daily. [facility] aspirin 81 mg EC tablet 2021-0 10-27 00:00: 00 Yes [id number] 81mg Take 1 tablet by mouth daily. [facility] aspirin 81 mg EC tablet 2021-0 10-27 00:00: 00 Yes [id number] 81mg Take 1 tablet by mouth daily. [facility] aspirin 81 mg EC tablet 2021-0 10-27 00:00: 00 Yes [id number] 81mg Take 1 tablet by mouth daily. [facility] aspirin 81 mg EC tablet 2021-0 10-27 00:00: 00 Yes [id number] 81mg Take 1 tablet by mouth daily. [facility] aspirin 81 mg EC tablet 2021-0 10-27 00:00: 00 Yes [id number] 81mg Take 1 tablet by mouth daily. [facility] aspirin 81 mg EC tablet 0 10-27 00:00: 00 Yes [id number] 81mg Take 1 tablet by mouth daily. [facility] aspirin 81 mg EC tablet 0 10-27 00:00: 00 Yes [id number] 81mg Take 1 tablet by mouth daily. [facility] aspirin 81 mg EC tablet 2021-0 10-27 00:00: 00 Yes [id number] 81mg Take 1 tablet by mouth daily. [facility] aspirin 81 mg EC tablet 2021-0 10-27 00:00: 00 Yes [id number] 81mg Take 1 tablet by mouth daily. [facility] aspirin 81 mg EC tablet 0 10-27 00:00: 00 Yes [id number] 81mg Take 1 tablet by mouth daily. [facility] aspirin 81 mg EC tablet 2021-0 10-27 00:00: 00 Yes [id number] 81mg Take 1 tablet by mouth daily. [facility] aspirin 81 mg EC tablet 2021-0 10-27 00:00: 00 Yes [id number] 81mg Take 1 tablet by mouth daily. [facility] aspirin 81 mg EC tablet 2021-0 10-27 00:00: 00 Yes [id number] 81mg Take 1 tablet by mouth daily. [facility] aspirin 81 mg EC tablet 2021-0 10-27 00:00: 00 Yes [id number] 81mg Take 1 tablet by mouth daily. [facility] aspirin 81 mg EC tablet 2-0 10-27 00:00: 00 Yes [id number] 81mg Take 1 tablet by mouth daily. [facility] aspirin 81 mg EC tablet 2021-0 06 00:00: 00 Yes [id number] 81mg Take 1 tablet by mouth daily. [facility] aspirin 81 mg EC tablet 2021-0 10-27 00:00: 00 Yes [id number] 81mg Take 1 tablet by mouth daily. [facility] aspirin 81 mg EC tablet 2021-0 10-27 00:00: 00 Yes [id number] 81mg Take 1 tablet by mouth daily. [facility] aspirin 81 mg EC tablet 2021-0 10-27 00:00: 00 Yes [id number] 81mg Take 1 tablet by mouth daily. [facility] aspirin 81 mg EC tablet 0 10-27 00:00: 00 Yes [id number] 81mg Take 1 tablet by mouth daily. [facility] aspirin 81 mg EC tablet 2021-0 10-27 00:00: 00 Yes [id number] 81mg Take 1 tablet by mouth daily. [facility] aspirin 81 mg EC tablet 2021-0 10-27 00:00: 00 Yes [id number] 81mg Take 1 tablet by mouth daily. [facility] aspirin 81 mg EC tablet 2021-0 10-27 00:00: 00 Yes [id number] 81mg Take 1 tablet by mouth daily. [facility] aspirin 81 mg EC tablet 2021-0 10-27 00:00: 00 Yes [id number] 81mg Take 1 tablet by mouth daily. [facility] aspirin 81 mg EC tablet 2021-0 10-27 00:00: 00 Yes [id number] 81mg Take 1 tablet by mouth daily. [facility] aspirin 81 mg EC tablet 2021-0 10-27 00:00: 00 Yes [id number] 81mg Take 1 tablet by mouth daily. [facility] aspirin 81 mg EC tablet 2021-0 10-27 00:00: 00 Yes [id number] 81mg Take 1 tablet by mouth daily. [facility] aspirin 81 mg EC tablet 2021-0 4-06 00:00: 00 Yes [id number] 81mg Take 1 tablet by mouth daily. [facility] aspirin 81 mg EC tablet 2021-0 06 00:00: 00 Yes [id number] 81mg Take 1 tablet by mouth daily. [facility] aspirin 81 mg EC tablet 2021-0 10-27 00:00: 00 Yes [id number] 81mg Take 1 tablet by mouth daily. [facility] aspirin 81 mg EC tablet 2021-0 10-27 00:00: 00 Yes [id number] 81mg Take 1 tablet by mouth daily. [facility] aspirin 81 mg EC tablet 2021-0 10-27 00:00: 00 Yes [id number] 81mg Take 1 tablet by mouth daily. [facility] aspirin 81 mg EC tablet 0 10-27 00:00: 00 Yes [id number] 81mg Take 1 tablet by mouth daily. [facility] aspirin 81 mg EC tablet 0 10-27 00:00: 00 Yes [id number] 81mg Take 1 tablet by mouth daily. [facility] aspirin 81 mg EC tablet 0 10-27 00:00: 00 Yes [id number] 81mg Take 1 tablet by mouth daily. [facility] aspirin 81 mg EC tablet 2021-0 10-27 00:00: 00 Yes [id number] 81mg Take 1 tablet by mouth daily. [facility] aspirin 81 mg EC tablet 0 10-27 00:00: 00 Yes [id number] 81mg Take 1 tablet by mouth daily. [facility] aspirin 81 mg EC tablet 2021-0 10-27 00:00: 00 Yes [id number] 81mg Take 1 tablet by mouth daily. [facility] aspirin 81 mg EC tablet 2021-0 10-27 00:00: 00 Yes [id number] 81mg Take 1 tablet by mouth daily. [facility] aspirin 81 mg EC tablet 2021-0 10-27 00:00: 00 Yes [id number] 81mg Take 1 tablet by mouth daily. [facility] aspirin 81 mg EC tablet 2021-0 10-27 00:00: 00 Yes [id number] 81mg Take 1 tablet by mouth daily. [facility] aspirin 81 mg EC tablet 2021-0 06 00:00: 00 Yes [id number] 81mg Take 1 tablet by mouth daily. [facility] aspirin 81 mg EC tablet 0 10-27 00:00: 00 Yes [id number] 81mg Take 1 tablet by mouth daily. [facility] aspirin 81 mg EC tablet 0 10-27 00:00: 00 Yes [id number] 81mg Take 1 tablet by mouth daily. [facility] aspirin 81 mg EC tablet 0 10-27 00:00: 00 Yes [id number] 81mg Take 1 tablet by mouth daily. [facility] aspirin 81 mg EC tablet 0 10-27 00:00: 00 Yes [id number] 81mg Take 1 tablet by mouth daily. [facility] aspirin 81 mg EC tablet 2021-0 10-27 00:00: 00 Yes [id number] 81mg Take 1 tablet by mouth daily. [facility] aspirin 81 mg EC tablet 2021-0 10-27 00:00: 00 Yes [id number] 81mg Take 1 tablet by mouth daily. [facility] aspirin 81 mg EC tablet 0 10-27 00:00: 00 Yes [id number] 81mg Take 1 tablet by mouth daily. [facility] aspirin 81 mg EC tablet 0 10-27 00:00: 00 Yes [id number] 81mg Take 1 tablet by mouth daily. [facility] aspirin 81 mg EC tablet 2021-0 10-27 00:00: 00 Yes [id number] 81mg Take 1 tablet by mouth daily. [facility] aspirin 81 mg EC tablet 2021-0 10-27 00:00: 00 Yes [id number] 81mg Take 1 tablet by mouth daily. [facility] aspirin 81 mg EC tablet 2021-0 10-27 00:00: 00 Yes [id number] 81mg Take 1 tablet by mouth daily. [facility] aspirin 81 mg EC tablet 2021-0 10-27 00:00: 00 Yes [id number] 81mg Take 1 tablet by mouth daily. [facility] aspirin 81 mg EC tablet 2021-0 10-27 00:00: 00 Yes [id number] 81mg Take 1 tablet by mouth daily. [facility] aspirin 81 mg EC tablet 0 10-27 00:00: 00 Yes [id number] 81mg Take 1 tablet by mouth daily. [facility] aspirin 81 mg EC tablet 0 10-27 00:00: 00 Yes [id number] 81mg Take 1 tablet by mouth daily. [facility] aspirin 81 mg EC tablet 0 10-27 00:00: 00 Yes [id number] 81mg Take 1 tablet by mouth daily. [facility] aspirin 81 mg EC tablet 2021-0 10-27 00:00: 00 Yes [id number] 81mg Take 1 tablet by mouth daily. [facility] aspirin 81 mg EC tablet 0 10-27 00:00: 00 Yes [id number] 81mg Take 1 tablet by mouth daily. [facility] aspirin 81 mg EC tablet 2021-0 10-27 00:00: 00 Yes [id number] 81mg Take 1 tablet by mouth daily. [facility] aspirin 81 mg EC tablet 2021-0 10-27 00:00: 00 Yes [id number] 81mg Take 1 tablet by mouth daily. [facility] aspirin 81 mg EC tablet 0 10-27 00:00: 00 Yes [id number] 81mg Take 1 tablet by mouth daily. [facility] aspirin 81 mg EC tablet 2021-0 10-27 00:00: 00 Yes [id number] 81mg Take 1 tablet by mouth daily. [facility] aspirin 81 mg EC tablet 2021-0 10-27 00:00: 00 Yes [id number] 81mg Take 1 tablet by mouth daily. [facility] aspirin 81 mg EC tablet 2021-0 10-27 00:00: 00 Yes [id number] 81mg Take 1 tablet by mouth daily. [facility] aspirin 81 mg EC tablet 2-0 10-27 00:00: 00 Yes [id number] 81mg Take 1 tablet by mouth daily. [facility] aspirin 81 mg EC tablet 2021-0 10-27 00:00: 00 Yes [id number] 81mg Take 1 tablet by mouth daily. [facility] aspirin 81 mg EC tablet 0 10-27 00:00: 00 Yes [id number] 81mg Take 1 tablet by mouth daily. [facility] aspirin 81 mg EC tablet 0 10-27 00:00: 00 Yes [id number] 81mg Take 1 tablet by mouth daily. [facility] aspirin 81 mg EC tablet 0 10-27 00:00: 00 Yes [id number] 81mg Take 1 tablet by mouth daily. [facility] aspirin 81 mg EC tablet 0 10-27 00:00: 00 Yes [id number] 81mg Take 1 tablet by mouth daily. [facility] aspirin 81 mg EC tablet 0 10-27 00:00: 00 Yes [id number] 81mg Take 1 tablet by mouth daily. [facility] aspirin 81 mg EC tablet 0 10-27 00:00: 00 Yes [id number] 81mg Take 1 tablet by mouth daily. [facility] aspirin 81 mg EC tablet 0 10-27 00:00: 00 Yes [id number] 81mg Take 1 tablet by mouth daily. [facility] aspirin 81 mg EC tablet 0 10-27 00:00: 00 Yes [id number] 81mg Take 1 tablet by mouth daily. [facility] aspirin 81 mg EC tablet 0 10-27 00:00: 00 Yes [id number] 81mg Take 1 tablet by mouth daily. [facility] aspirin 81 mg EC tablet 0 10-27 00:00: 00 Yes [id number] 81mg Take 1 tablet by mouth daily. [facility] aspirin 81 mg EC tablet 2021-0 10-27 00:00: 00 Yes [id number] 81mg Take 1 tablet by mouth daily. [facility] aspirin 81 mg EC tablet 0 10-27 00:00: 00 Yes [id number] 81mg Take 1 tablet by mouth daily. [facility] aspirin 81 mg EC tablet 2021-0 10-27 00:00: 00 Yes [id number] 81mg Take 1 tablet by mouth daily. [facility] aspirin 81 mg EC tablet 2021-0 06 00:00: 00 Yes [id number] 81mg Take 1 tablet by mouth daily. [facility] aspirin 81 mg EC tablet 2021-0 10-27 00:00: 00 Yes [id number] 81mg Take 1 tablet by mouth daily. [facility] aspirin 81 mg EC tablet 2021-0 10-27 00:00: 00 Yes [id number] 81mg Take 1 tablet by mouth daily. [facility] aspirin 81 mg EC tablet 0 10-27 00:00: 00 Yes [id number] 81mg Take 1 tablet by mouth daily. [facility] aspirin 81 mg EC tablet 0 10-27 00:00: 00 Yes [id number] 81mg Take 1 tablet by mouth daily. [facility] aspirin 81 mg EC tablet 0 10-27 00:00: 00 Yes [id number] 81mg Take 1 tablet by mouth daily. [facility] aspirin 81 mg EC tablet 0 10-27 00:00: 00 Yes [id number] 81mg Take 1 tablet by mouth daily. [facility] aspirin 81 mg EC tablet 2021-0 10-27 00:00: 00 Yes [id number] 81mg Take 1 tablet by mouth daily. [facility] aspirin 81 mg EC tablet 2021-0 10-27 00:00: 00 Yes [id number] 81mg Take 1 tablet by mouth daily. [facility] aspirin 81 mg EC tablet 2021-0 10-27 00:00: 00 Yes [id number] 81mg Take 1 tablet by mouth daily. [facility] aspirin 81 mg EC tablet 2021-0 10-27 00:00: 00 Yes [id number] 81mg Take 1 tablet by mouth daily. [facility] aspirin 81 mg EC tablet 2021-0 10-27 00:00: 00 Yes [id number] 81mg Take 1 tablet by mouth daily. [facility] aspirin 81 mg EC tablet 2021-0 10-27 00:00: 00 Yes [id number] 81mg Take 1 tablet by mouth daily. [facility] aspirin 81 mg EC tablet 0 10-27 00:00: 00 Yes [id number] 81mg Take 1 tablet by mouth daily. [facility] Eligard Eligard 2021-0 10-26 00:00: 00 No Eligard Tamsulosin HCl 0.4 MG Tamsulosin HCl 0.4 MG 2021-0 10-26 00:00: 00 No 1{capsu le} QD Tamsulosin HCl 0.4 MG Tadalafil 5 MG Tadalafil 5 MG 2021-0 10-26 00:00: 00 No 1{table t_as_ne eded} QD Tadalafil 5 MG Eligard Eligard 2021-0 10-26 00:00: 00 No Eligard Tadalafil 5 MG Tadalafil 5 MG 2021-0 10-26 00:00: 00 No 1{table t_as_ne eded} QD Tadalafil 5 MG Tamsulosin HCl 0.4 MG Tamsulosin HCl 0.4 MG 2021-0 10-26 00:00: 00 No 1{capsu le} QD Tamsulosin HCl 0.4 MG Tamsulosin HCl 0.4 MG Tamsulosin HCl 0.4 MG 2021-0 10-26 00:00: 00 No 1{capsu le} QD Tamsulosin HCl 0.4 MG Tadalafil 5 MG Tadalafil 5 MG 2021-0 10-26 00:00: 00 No 1{table t_as_ne eded} QD Tadalafil 5 MG Tamsulosin HCl 0.4 MG Tamsulosin HCl 0.4 MG 2021-0 05 00:00: 00 No 1{capsu le} QD Tamsulosin HCl 0.4 MG Tadalafil 5 MG Tadalafil 5 MG 2-0 05 00:00: 00 No 1{table t_as_ne eded} QD Tadalafil 5 MG Tamsulosin HCl 0.4 MG Tamsulosin HCl 0.4 MG 2-0 05 00:00: 00 No 1{capsu le} QD Tamsulosin HCl 0.4 MG Tadalafil 5 MG Tadalafil 5 MG 2-0 05 00:00: 00 No 1{table t_as_ne eded} QD Tadalafil 5 MG Eligard Eligard 2-0 4-05 00:00: 00 No Eligard Tamsulosin HCl 0.4 MG Tamsulosin HCl 0.4 MG 2-0 4-05 00:00: 00 No 1{capsu le} QD Tamsulosin HCl 0.4 MG Tadalafil 5 MG Tadalafil 5 MG 2-0 4-05 00:00: 00 No 1{table t_as_ne eded} QD Tadalafil 5 MG Tamsulosin HCl 0.4 MG Tamsulosin HCl 0.4 MG 2-0 4-05 00:00: 00 No 1{capsu le} QD Tamsulosin HCl 0.4 MG Tadalafil 5 MG Tadalafil 5 MG 2-0 4-05 00:00: 00 No 1{table t_as_ne eded} QD Tadalafil 5 MG Tadalafil 5 MG Tadalafil 5 MG 2-0 4-05 00:00: 00 No 1{table t_as_ne eded} QD Tadalafil 5 MG Tadalafil 5 MG Tadalafil 5 MG 2-0 4-05 00:00: 00 No 1{table t_as_ne eded} QD Tadalafil 5 MG Tamsulosin HCl 0.4 MG Tamsulosin HCl 0.4 MG 2-0 4-05 00:00: 00 No 1{capsu le} QD Tamsulosin HCl 0.4 MG Tamsulosin HCl 0.4 MG Tamsulosin HCl 0.4 MG 2-0 4-05 00:00: 00 No 1{capsu le} QD Tamsulosin HCl 0.4 MG Tadalafil 5 MG Tadalafil 5 MG 2-0 4-05 00:00: 00 No 1{table t_as_ne eded} QD Tadalafil 5 MG Tamsulosin HCl 0.4 MG Tamsulosin HCl 0.4 MG 2-0 4-05 00:00: 00 No 1{capsu le} QD Tamsulosin HCl 0.4 MG Tadalafil 5 MG Tadalafil 5 MG 2-0 4-05 00:00: 00 No 1{table t_as_ne eded} QD Tadalafil 5 MG Tamsulosin HCl 0.4 MG Tamsulosin HCl 0.4 MG 2022-0 4-05 00:00: 00 No 1{capsu le} QD Tamsulosin HCl 0.4 MG Tadalafil 5 MG Tadalafil 5 MG 2-0 4-05 00:00: 00 No 1{table t_as_ne eded} QD Tadalafil 5 MG Tamsulosin HCl 0.4 MG Tamsulosin HCl 0.4 MG 2-0 4-05 00:00: 00 No 1{capsu le} QD Tamsulosin HCl 0.4 MG Tadalafil 5 MG Tadalafil 5 MG 2-0 4-05 00:00: 00 No 1{table t_as_ne eded} QD Tadalafil 5 MG Tamsulosin HCl 0.4 MG Tamsulosin HCl 0.4 MG 2-0 4-05 00:00: 00 No 1{capsu le} QD Tamsulosin HCl 0.4 MG Tadalafil 5 MG Tadalafil 5 MG 2-0 4-05 00:00: 00 No 1{table t_as_ne eded} QD Tadalafil 5 MG Tamsulosin HCl 0.4 MG Tamsulosin HCl 0.4 MG 2-0 4-05 00:00: 00 No 1{capsu le} QD Tamsulosin HCl 0.4 MG Tadalafil 5 MG Tadalafil 5 MG 2-0 4-05 00:00: 00 No 1{table t_as_ne eded} QD Tadalafil 5 MG Tamsulosin HCl 0.4 MG Tamsulosin HCl 0.4 MG 2-0 4-05 00:00: 00 No 1{capsu le} QD Tamsulosin HCl 0.4 MG Eligard Eligard 2-0 4-05 00:00: 00 No Eligard Tadalafil 5 MG Tadalafil 5 MG 2-0 4-05 00:00: 00 No 1{table t_as_ne eded} QD Tadalafil 5 MG Tadalafil 5 MG Tadalafil 5 MG 2-0 4-05 00:00: 00 No 1{table t_as_ne eded} QD Tadalafil 5 MG Tamsulosin HCl 0.4 MG Tamsulosin HCl 0.4 MG 2-0 4-05 00:00: 00 No 1{capsu le} QD Tamsulosin HCl 0.4 MG Tadalafil 5 MG Tadalafil 5 MG 2021-0 4 00:00: 00 No 1{table t_as_ne eded} QD Tadalafil 5 MG Tadalafil 5 MG Tadalafil 5 MG 2021-0 405 00:00: 00 No 1{table t_as_ne eded} QD Tadalafil 5 MG Tadalafil 5 MG Tadalafil 5 MG 2021-0 405 00:00: 00 No 1{table t_as_ne eded} QD Tadalafil 5 MG Tadalafil 5 MG Tadalafil 5 MG 2021-0 05 00:00: 00 No 1{table t_as_ne eded} QD Tadalafil 5 MG Bupivicaine [place] Bupivicaine [place] 2020-07 00:00: 00 No 2.5mg [facility] Kenalog (Triamcinol one) Kenalog (Triamcinol one) 2020-07 00:00: 00 No 40mg [facility] Bupivicaine [place] Bupivicaine [place] 2020-07 00:00: 00 No 2.5mg [facility] Kenalog (Triamcinol one) Kenalog (Triamcinol one) 2020-07 00:00: 00 No 40mg [facility] Bupivicaine [place] Bupivicaine [place] 2020-07 00:00: 00 No 2[facility]5mg [facility] Kenalog (Triamcinol one) Kenalog (Triamcinol one) 2020-07 00:00: 00 No [facility] Bupivicaine [place] Bupivicaine [place] 2020-07 00:00: 00 No 2.5mg [facility] Kenalog (Triamcinol one) Kenalog (Triamcinol one) 2020-07 00:00: 00 No 40mg [facility] Bupivicaine [place] Bupivicaine [place] 2020-07 00:00: 00 No 2.5mg [facility] Kenalog (Triamcinol one) Kenalog (Triamcinol one) 2020-07 00:00: 00 No 40mg [facility] Bupivicaine [place] Bupivicaine [place] 2020-07 00:00: 00 No 2.5mg [facility] Kenalog (Triamcinol one) Kenalog (Triamcinol one) 2020-07 00:00: 00 No 40mg [facility] Bupivicaine [place] Bupivicaine [place] 2020-07 00:00: 00 No 2.5mg [facility] Kenalog (Triamcinol one) Kenalog (Triamcinol one) 2020-07 00:00: 00 No 40mg [facility] Bupivicaine [place] Bupivicaine [place] 2020-07 00:00: 00 No 2.5mg [facility] Kenalog (Triamcinol one) Kenalog (Triamcinol one) 2020-07 00:00: 00 No 40mg [facility] Bupivicaine [place] Bupivicaine [place] 2020-07 00:00: 00 No 2.5mg [facility] Kenalog (Triamcinol one) Kenalog (Triamcinol one) 2020-07 00:00: 00 No 40mg [facility] Bupivicaine [place] Bupivicaine [place] 2020-07 00:00: 00 No 2.5mg [facility] Kenalog (Triamcinol one) Kenalog (Triamcinol one) 2020-07 00:00: 00 No 40mg [facility] Bupivicaine [place] Bupivicaine [place] 2020-07 00:00: 00 No 2.5mg [facility] Kenalog (Triamcinol one) Kenalog (Triamcinol one) 2020-07 00:00: 00 No 40mg [facility] Bupivicaine [place] Bupivicaine [place] 2020-07 00:00: 00 No 2.5mg [facility] Kenalog (Triamcinol one) Kenalog (Triamcinol one) 2020-07 00:00: 00 No 40mg [facility] Bupivicaine [place] Bupivicaine [place] 2020-07 00:00: 00 No 2.5mg [facility] Kenalog (Triamcinol one) Kenalog (Triamcinol one) 2020-07 00:00: 00 No 40mg [facility] Bupivicaine [place] Bupivicaine [place] 2020-07 00:00: 00 No 2.5mg [facility] Kenalog (Triamcinol one) Kenalog (Triamcinol one) 2020-07 00:00: 00 No 40mg [facility] Bupivicaine [place] Bupivicaine [place] 2020-07 00:00: 00 No 2.5mg [facility] Kenalog (Triamcinol one) Kenalog (Triamcinol one) 2020-07 00:00: 00 No 40mg [facility] Bupivicaine [place] Bupivicaine [place] 2020-07 00:00: 00 No 2.5mg [facility] Kenalog (Triamcinol one) Kenalog (Triamcinol one) 2020-07 00:00: 00 No 40mg [facility] Bupivicaine [place] Bupivicaine [place] 2020-07 00:00: 00 No 2.5mg [facility] Kenalog (Triamcinol one) Kenalog (Triamcinol one) 2020-07 00:00: 00 No 40mg [facility] Bupivicaine [place] Bupivicaine [place] 2020-07 00:00: 00 No 2.5mg [facility] Kenalog (Triamcinol one) Kenalog (Triamcinol one) 2020-07 00:00: 00 No 40[facility] Bupivicaine [place] Bupivicaine [place] 2020-07 00:00: 00 No 2.5mg [facility] Kenalog (Triamcinol one) Kenalog (Triamcinol one) 2020-07 00:00: 00 No 40mg [facility] Bupivicaine [place] Bupivicaine [place] 2020-07 00:00: 00 No 2.5mg [facility] Kenalog (Triamcinol one) Kenalog (Triamcinol one) 2020-07 00:00: 00 No 40mg [facility] Bupivicaine [place] Bupivicaine [place] 2020-07 00:00: 00 No 2.5mg [facility] Kenalog (Triamcinol one) Kenalog (Triamcinol one) 2020-07 00:00: 00 No 40mg [facility] mometasone 50 mcg/actuati on nasal spray 2020-0 4-15 00:00: 00 Yes [facility] mometasone 50 mcg/actuati on nasal spray 2020-0 4-15 00:00: 00 Yes [facility] mometasone 50 mcg/actuati on nasal spray 2020-0 4-15 00:00: 00 Yes [facility] mometasone 50 mcg/actuati on nasal spray 2020-0 4-15 00:00: 00 Yes [facility] mometasone 50 mcg/actuati on nasal spray 2020-0 4-15 00:00: 00 Yes [facility] mometasone 50 mcg/actuati on nasal spray 2020-0 4-15 00:00: 00 Yes [facility] mometasone 50 mcg/actuati on nasal spray 2021-0 4-15 00:00: 00 Yes [facility] mometasone 50 mcg/actuati on nasal spray 2021-0 4-15 00:00: 00 Yes [facility] mometasone 50 mcg/actuati on nasal spray 2021-0 4-15 00:00: 00 Yes [facility] mometasone 50 mcg/actuati on nasal spray 2021-0 4-15 00:00: 00 Yes [facility] mometasone 50 mcg/actuati on nasal spray 2021-0 4-15 00:00: 00 Yes [facility] mometasone 50 mcg/actuati on nasal spray 2021-0 4-15 00:00: 00 Yes [facility] mometasone 50 mcg/actuati on nasal spray 2021-0 4-15 00:00: 00 Yes [facility] mometasone 50 mcg/actuati on nasal spray 2021-0 4-15 00:00: 00 Yes [facility] mometasone 50 mcg/actuati on nasal spray 2021-0 4-15 00:00: 00 Yes [facility] mometasone 50 mcg/actuati on nasal spray 2021-0 4-15 00:00: 00 Yes [facility] mometasone 50 mcg/actuati on nasal spray 2021-0 4-15 00:00: 00 Yes [facility] mometasone 50 mcg/actuati on nasal spray 2021-0 4-15 00:00: 00 Yes [facility] mometasone 50 mcg/actuati on nasal spray 2021-0 4-15 00:00: 00 Yes [facility] mometasone 50 mcg/actuati on nasal spray 2021-0 4-15 00:00: 00 Yes [facility] mometasone 50 mcg/actuati on nasal spray 2021-0 4-15 00:00: 00 Yes [facility] mometasone 50 mcg/actuati on nasal spray 2021-0 4-15 00:00: 00 Yes [facility] mometasone 50 mcg/actuati on nasal spray 2021-0 4-15 00:00: 00 Yes [facility] mometasone 50 mcg/actuati on nasal spray 2021-0 4-15 00:00: 00 Yes [facility] mometasone 50 mcg/actuati on nasal spray 2021-0 4-15 00:00: 00 Yes [facility] mometasone 50 mcg/actuati on nasal spray 2021-0 4-15 00:00: 00 Yes [facility] mometasone 50 mcg/actuati on nasal spray 2021-0 4-15 00:00: 00 Yes [facility] mometasone 50 mcg/actuati on nasal spray 2021-0 4-15 00:00: 00 Yes [facility] mometasone 50 mcg/actuati on nasal spray 2021-0 4-15 00:00: 00 Yes [facility] mometasone 50 mcg/actuati on nasal spray 2021-0 4-15 00:00: 00 Yes [facility] mometasone 50 mcg/actuati on nasal spray 2021-0 4-15 00:00: 00 Yes [facility] mometasone 50 mcg/actuati on nasal spray 2021-0 4-15 00:00: 00 Yes [facility] mometasone 50 mcg/actuati on nasal spray 2021-0 4-15 00:00: 00 Yes [facility] mometasone 50 mcg/actuati on nasal spray 2021-0 4-15 00:00: 00 Yes [facility] mometasone 50 mcg/actuati on nasal spray 2021-0 4-15 00:00: 00 Yes [facility] mometasone 50 mcg/actuati on nasal spray 2021-0 4-15 00:00: 00 Yes [facility] mometasone 50 mcg/actuati on nasal spray 2021-0 4-15 00:00: 00 Yes [facility] mometasone 50 mcg/actuati on nasal spray 2021-0 4-15 00:00: 00 Yes [facility] mometasone 50 mcg/actuati on nasal spray 2021-0 4-15 00:00: 00 Yes [facility] mometasone 50 mcg/actuati on nasal spray 2021-0 4-15 00:00: 00 Yes [facility] mometasone 50 mcg/actuati on nasal spray 2021-0 4-15 00:00: 00 Yes [facility] mometasone 50 mcg/actuati on nasal spray 2021-0 4-15 00:00: 00 Yes [facility] mometasone 50 mcg/actuati on nasal spray 2021-0 4-15 00:00: 00 Yes [facility] mometasone 50 mcg/actuati on nasal spray 2021-0 4-15 00:00: 00 Yes [facility] mometasone 50 mcg/actuati on nasal spray 2021-0 4-15 00:00: 00 Yes [facility] mometasone 50 mcg/actuati on nasal spray 2021-0 4-15 00:00: 00 Yes [facility] mometasone 50 mcg/actuati on nasal spray 2021-0 4-15 00:00: 00 Yes [facility] mometasone 50 mcg/actuati on nasal spray 2021-0 4-15 00:00: 00 Yes [facility] mometasone 50 mcg/actuati on nasal spray 2021-0 4-15 00:00: 00 Yes [facility] mometasone 50 mcg/actuati on nasal spray 2021-0 4-15 00:00: 00 Yes [facility] mometasone 50 mcg/actuati on nasal spray 2021-0 4-15 00:00: 00 Yes [facility] mometasone 50 mcg/actuati on nasal spray 2021-0 4-15 00:00: 00 Yes [facility] mometasone 50 mcg/actuati on nasal spray 2021-0 4-15 00:00: 00 Yes [facility] mometasone 50 mcg/actuati on nasal spray 2021-0 4-15 00:00: 00 Yes [facility] mometasone 50 mcg/actuati on nasal spray 2021-0 4-15 00:00: 00 Yes [facility] mometasone 50 mcg/actuati on nasal spray 2021-0 4-15 00:00: 00 Yes [facility] mometasone 50 mcg/actuati on nasal spray 2021-0 4-15 00:00: 00 Yes [facility] mometasone 50 mcg/actuati on nasal spray 2021-0 4-15 00:00: 00 Yes [facility] mometasone 50 mcg/actuati on nasal spray 2021-0 4-15 00:00: 00 Yes [facility] mometasone 50 mcg/actuati on nasal spray 2021-0 4-15 00:00: 00 Yes [facility] mometasone 50 mcg/actuati on nasal spray 2021-0 4-15 00:00: 00 Yes [facility] mometasone 50 mcg/actuati on nasal spray 2021-0 4-15 00:00: 00 Yes [facility] mometasone 50 mcg/actuati on nasal spray 2021-0 4-15 00:00: 00 Yes [facility] mometasone 50 mcg/actuati on nasal spray 2021-0 4-15 00:00: 00 Yes [facility] mometasone 50 mcg/actuati on nasal spray 2021-0 4-15 00:00: 00 Yes [facility] mometasone 50 mcg/actuati on nasal spray 2021-0 4-15 00:00: 00 Yes [facility] mometasone 50 mcg/actuati on nasal spray 2021-0 4-15 00:00: 00 Yes [facility] mometasone 50 mcg/actuati on nasal spray 2021-0 4-15 00:00: 00 Yes [facility] mometasone 50 mcg/actuati on nasal spray 2021-0 4-15 00:00: 00 Yes [facility] mometasone 50 mcg/actuati on nasal spray 2021-0 4-15 00:00: 00 Yes [facility] mometasone 50 mcg/actuati on nasal spray 2021-0 4-15 00:00: 00 Yes [facility] mometasone 50 mcg/actuati on nasal spray 2021-0 4-15 00:00: 00 Yes [facility] mometasone 50 mcg/actuati on nasal spray 2021-0 4-15 00:00: 00 Yes [facility] mometasone 50 mcg/actuati on nasal spray 2021-0 4-15 00:00: 00 Yes [facility] mometasone 50 mcg/actuati on nasal spray 2021-0 4-15 00:00: 00 Yes [facility] mometasone 50 mcg/actuati on nasal spray 2021-0 4-15 00:00: 00 Yes [facility] mometasone 50 mcg/actuati on nasal spray 2021-0 4-15 00:00: 00 Yes [facility] mometasone 50 mcg/actuati on nasal spray 2021-0 4-15 00:00: 00 Yes [facility] mometasone 50 mcg/actuati on nasal spray 2021-0 4-15 00:00: 00 Yes [facility] mometasone 50 mcg/actuati on nasal spray 2021-0 4-15 00:00: 00 Yes [facility] mometasone 50 mcg/actuati on nasal spray 2021-0 4-15 00:00: 00 Yes [facility] mometasone 50 mcg/actuati on nasal spray 2021-0 4-15 00:00: 00 Yes [facility] mometasone 50 mcg/actuati on nasal spray 2021-0 4-15 00:00: 00 Yes [facility] mometasone 50 mcg/actuati on nasal spray 2021-0 4-15 00:00: 00 Yes [facility] mometasone 50 mcg/actuati on nasal spray 2021-0 4-15 00:00: 00 Yes [facility] mometasone 50 mcg/actuati on nasal spray 2021-0 4-15 00:00: 00 Yes [facility] mometasone 50 mcg/actuati on nasal spray 2021-0 4-15 00:00: 00 Yes [facility] mometasone 50 mcg/actuati on nasal spray 2021-0 4-15 00:00: 00 Yes [facility] mometasone 50 mcg/actuati on nasal spray 2021-0 4-15 00:00: 00 Yes [facility] mometasone 50 mcg/actuati on nasal spray 2021-0 4-15 00:00: 00 Yes [facility] mometasone 50 mcg/actuati on nasal spray 2021-0 4-15 00:00: 00 Yes [facility] mometasone 50 mcg/actuati on nasal spray 2021-0 4-15 00:00: 00 Yes [facility] mometasone 50 mcg/actuati on nasal spray 2021-0 4-15 00:00: 00 Yes [facility] mometasone 50 mcg/actuati on nasal spray 2021-0 4-15 00:00: 00 Yes [facility] mometasone 50 mcg/actuati on nasal spray 2021-0 4-15 00:00: 00 Yes [facility] mometasone 50 mcg/actuati on nasal spray 2021-0 4-15 00:00: 00 Yes [facility] mometasone 50 mcg/actuati on nasal spray 2021-0 4-15 00:00: 00 Yes [facility] mometasone 50 mcg/actuati on nasal spray 2021-0 4-15 00:00: 00 Yes [facility] mometasone 50 mcg/actuati on nasal spray 2021-0 4-15 00:00: 00 Yes [facility] mometasone 50 mcg/actuati on nasal spray 2021-0 4-15 00:00: 00 Yes [facility] mometasone 50 mcg/actuati on nasal spray 2021-0 4-15 00:00: 00 Yes [facility] mometasone 50 mcg/actuati on nasal spray 2021-0 4-15 00:00: 00 Yes [facility] mometasone 50 mcg/actuati on nasal spray 2021-0 4-15 00:00: 00 Yes [facility] mometasone 50 mcg/actuati on nasal spray 2021-0 4-15 00:00: 00 Yes [facility] mometasone 50 mcg/actuati on nasal spray 2021-0 4-15 00:00: 00 Yes [facility] mometasone 50 mcg/actuati on nasal spray 2021-0 4-15 00:00: 00 Yes [facility] mometasone 50 mcg/actuati on nasal spray 2021-0 4-15 00:00: 00 Yes [facility] mometasone 50 mcg/actuati on nasal spray 2021-0 4-15 00:00: 00 Yes [facility] mometasone 50 mcg/actuati on nasal spray 2021-0 4-15 00:00: 00 Yes [facility] mometasone 50 mcg/actuati on nasal spray 2021-0 4-15 00:00: 00 Yes [facility] mometasone 50 mcg/actuati on nasal spray 2021-0 4-15 00:00: 00 Yes [facility] mometasone 50 mcg/actuati on nasal spray 2021-0 4-15 00:00: 00 Yes [facility] mometasone 50 mcg/actuati on nasal spray 2021-0 4-15 00:00: 00 Yes [facility] mometasone 50 mcg/actuati on nasal spray 2021-0 4-15 00:00: 00 Yes [facility] mometasone 50 mcg/actuati on nasal spray 2021-0 4-15 00:00: 00 Yes [facility] mometasone 50 mcg/actuati on nasal spray 2021-0 4-15 00:00: 00 Yes [facility] mometasone 50 mcg/actuati on nasal spray 2021-0 4-15 00:00: 00 Yes [facility] mometasone 50 mcg/actuati on nasal spray 2021-0 4-15 00:00: 00 Yes [facility] mometasone 50 mcg/actuati on nasal spray 2021-0 4-15 00:00: 00 Yes [facility] mometasone 50 mcg/actuati on nasal spray 2021-0 4-15 00:00: 00 Yes [facility] mometasone 50 mcg/actuati on nasal spray 2021-0 4-15 00:00: 00 Yes [facility] mometasone 50 mcg/actuati on nasal spray 2021-0 4-15 00:00: 00 Yes [facility] mometasone 50 mcg/actuati on nasal spray 2021-0 4-15 00:00: 00 Yes [facility] mometasone 50 mcg/actuati on nasal spray 2021-0 4-15 00:00: 00 Yes [facility] mometasone 50 mcg/actuati on nasal spray 2021-0 4-15 00:00: 00 Yes [facility] mometasone 50 mcg/actuati on nasal spray 2021-0 4-15 00:00: 00 Yes [facility] mometasone 50 mcg/actuati on nasal spray 2021-0 4-15 00:00: 00 Yes [facility] mometasone 50 mcg/actuati on nasal spray 2021-0 4-15 00:00: 00 Yes [facility] mometasone 50 mcg/actuati on nasal spray 2021-0 4-15 00:00: 00 Yes [facility] mometasone 50 mcg/actuati on nasal spray 2021-0 4-15 00:00: 00 Yes [facility] mometasone 50 mcg/actuati on nasal spray 2021-0 4-15 00:00: 00 Yes [facility] mometasone 50 mcg/actuati on nasal spray 2021-0 4-15 00:00: 00 Yes [facility] mometasone 50 mcg/actuati on nasal spray 2021-0 4-15 00:00: 00 Yes [facility] mometasone 50 mcg/actuati on nasal spray 2021-0 4-15 00:00: 00 Yes [facility] mometasone 50 mcg/actuati on nasal spray 2021-0 4-15 00:00: 00 Yes [facility] mometasone 50 mcg/actuati on nasal spray 2021-0 4-15 00:00: 00 Yes [facility] mometasone 50 mcg/actuati on nasal spray 2021-0 4-15 00:00: 00 Yes [facility] mometasone 50 mcg/actuati on nasal spray 2021-0 4-15 00:00: 00 Yes [facility] mometasone 50 mcg/actuati on nasal spray 2021-0 4-15 00:00: 00 Yes [facility] mometasone 50 mcg/actuati on nasal spray 2021-0 4-15 00:00: 00 Yes [facility] mometasone 50 mcg/actuati on nasal spray 2021-0 4-15 00:00: 00 Yes [facility] mometasone 50 mcg/actuati on nasal spray 2021-0 4-15 00:00: 00 Yes [facility] mometasone 50 mcg/actuati on nasal spray 2021-0 4-15 00:00: 00 Yes [facility] mometasone 50 mcg/actuati on nasal spray 2021-0 4-15 00:00: 00 Yes [facility] mometasone 50 mcg/actuati on nasal spray 2021-0 4-15 00:00: 00 Yes [facility] mometasone 50 mcg/actuati on nasal spray 2021-0 4-15 00:00: 00 Yes [facility] mometasone 50 mcg/actuati on nasal spray 2021-0 4-15 00:00: 00 Yes [facility] spironolact one 25 mg tablet 2020-0 05 00:00: 00 Yes 25mg Take 25 mg by mouth. [facility] spironolact one 25 mg tablet 2020-0 10-26 00:00: 00 Yes 25mg Take 25 mg by mouth. [facility] spironolact one 25 mg tablet 2020-0 10-26 00:00: 00 Yes 25mg Take 25 mg by mouth. [facility] spironolact one 25 mg tablet 2020-0 10-26 00:00: 00 Yes 25mg Take 25 mg by mouth. [facility] spironolact one 25 mg tablet 2020-0 10-26 00:00: 00 Yes 25mg Take 25 mg by mouth. [facility] spironolact one 25 mg tablet 2020-0 10-26 00:00: 00 Yes 25mg Take 25 mg by mouth. [facility] spironolact one 25 mg tablet 2020-0 10-26 00:00: 00 Yes 25mg Take 25 mg by mouth. [facility] spironolact one 25 mg tablet 2020-0 10-26 00:00: 00 Yes 25mg Take 25 mg by mouth. [facility] spironolact one 25 mg tablet 2020-0 10-26 00:00: 00 Yes 25mg Take 25 mg by mouth. [facility] spironolact one 25 mg tablet 2020-0 10-26 00:00: 00 Yes 25mg Take 25 mg by mouth. [facility] spironolact one 25 mg tablet 2020-0 05 00:00: 00 Yes 25mg Take 25 mg by mouth. [facility] spironolact one 25 mg tablet 2020-0 05 00:00: 00 Yes 25mg Take 25 mg by mouth. [facility] spironolact one 25 mg tablet 2020-0 05 00:00: 00 Yes 25mg Take 25 mg by mouth. [facility] spironolact one 25 mg tablet 2020-0 4-05 00:00: 00 Yes 25mg Take 25 mg by mouth. [facility] spironolact one 25 mg tablet 2020-0 10-26 00:00: 00 Yes 25mg Take 25 mg by mouth. [facility] spironolact one 25 mg tablet 2020-0 10-26 00:00: 00 Yes 25mg Take 25 mg by mouth. [facility] spironolact one 25 mg tablet 2020-0 10-26 00:00: 00 Yes 25mg Take 25 mg by mouth. [facility] spironolact one 25 mg tablet 2020-0 10-26 00:00: 00 Yes 25mg Take 25 mg by mouth. [facility] spironolact one 25 mg tablet 2020-0 10-26 00:00: 00 Yes 25mg Take 25 mg by mouth. [facility] spironolact one 25 mg tablet 2020-0 10-26 00:00: 00 Yes 25mg Take 25 mg by mouth. [facility] spironolact one 25 mg tablet 2020-0 10-26 00:00: 00 Yes 25mg Take 25 mg by mouth. [facility] spironolact one 25 mg tablet 2020-0 10-26 00:00: 00 Yes 25mg Take 25 mg by mouth. [facility] spironolact one 25 mg tablet 2020-0 10-26 00:00: 00 Yes 25mg Take 25 mg by mouth. [facility] spironolact one 25 mg tablet 2020-0 10-26 00:00: 00 Yes 25mg Take 25 mg by mouth. [facility] spironolact one 25 mg tablet 2020-0 10-26 00:00: 00 Yes 25mg Take 25 mg by mouth. [facility] spironolact one 25 mg tablet 2020-0 10-26 00:00: 00 Yes 25mg Take 25 mg by mouth. [facility] spironolact one 25 mg tablet 2020-0 10-26 00:00: 00 Yes 25mg Take 25 mg by mouth. [facility] spironolact one 25 mg tablet 2020-0 10-26 00:00: 00 Yes 25mg Take 25 mg by mouth. [facility] spironolact one 25 mg tablet 0 10-26 00:00: 00 Yes 25mg Take 25 mg by mouth. [facility] spironolact one 25 mg tablet 2020-0 10-26 00:00: 00 Yes 25mg Take 25 mg by mouth. [facility] spironolact one 25 mg tablet 0 10-26 00:00: 00 Yes 25mg Take 25 mg by mouth. [facility] spironolact one 25 mg tablet 2020-0 10-26 00:00: 00 Yes 25mg Take 25 mg by mouth. [facility] spironolact one 25 mg tablet 0 10-26 00:00: 00 Yes 25mg Take 25 mg by mouth. [facility] spironolact one 25 mg tablet 0 10-26 00:00: 00 Yes 25mg Take 25 mg by mouth. [facility] spironolact one 25 mg tablet 0 10-26 00:00: 00 Yes 25mg Take 25 mg by mouth. [facility] spironolact one 25 mg tablet 0 10-26 00:00: 00 Yes 25mg Take 25 mg by mouth. [facility] spironolact one 25 mg tablet 0 10-26 00:00: 00 Yes 25mg Take 25 mg by mouth. [facility] spironolact one 25 mg tablet 0 10-26 00:00: 00 Yes 25mg Take 25 mg by mouth. [facility] spironolact one 25 mg tablet 2020-0 10-26 00:00: 00 Yes 25mg Take 25 mg by mouth. [facility] spironolact one 25 mg tablet 0 10-26 00:00: 00 Yes 25mg Take 25 mg by mouth. [facility] spironolact one 25 mg tablet 2020-0 10-26 00:00: 00 Yes 25mg Take 25 mg by mouth. [facility] spironolact one 25 mg tablet 0 10-26 00:00: 00 Yes 25mg Take 25 mg by mouth. [facility] spironolact one 25 mg tablet 2020-0 10-26 00:00: 00 Yes 25mg Take 25 mg by mouth. [facility] spironolact one 25 mg tablet 2020-0 10-26 00:00: 00 Yes 25mg Take 25 mg by mouth. [facility] spironolact one 25 mg tablet 2020-0 10-26 00:00: 00 Yes 25mg Take 25 mg by mouth. [facility] spironolact one 25 mg tablet 2020-0 10-26 00:00: 00 Yes 25mg Take 25 mg by mouth. [facility] spironolact one 25 mg tablet 2020-0 10-26 00:00: 00 Yes 25mg Take 25 mg by mouth. [facility] spironolact one 25 mg tablet 2020-0 10-26 00:00: 00 Yes 25mg Take 25 mg by mouth. [facility] spironolact one 25 mg tablet 2020-0 10-26 00:00: 00 Yes 25mg Take 25 mg by mouth. [facility] spironolact one 25 mg tablet 0 10-26 00:00: 00 Yes 25mg Take 25 mg by mouth. [facility] spironolact one 25 mg tablet 2020-0 10-26 00:00: 00 Yes 25mg Take 25 mg by mouth. [facility] spironolact one 25 mg tablet 2020-0 10-26 00:00: 00 Yes 25mg Take 25 mg by mouth. [facility] spironolact one 25 mg tablet 2020-0 10-26 00:00: 00 Yes 25mg Take 25 mg by mouth. [facility] spironolact one 25 mg tablet 2020-0 10-26 00:00: 00 Yes 25mg Take 25 mg by mouth. [facility] spironolact one 25 mg tablet 2020-0 10-26 00:00: 00 Yes 25mg Take 25 mg by mouth. [facility] spironolact one 25 mg tablet 2020-0 10-26 00:00: 00 Yes 25mg Take 25 mg by mouth. [facility] spironolact one 25 mg tablet 2020-0 10-26 00:00: 00 Yes 25mg Take 25 mg by mouth. [facility] spironolact one 25 mg tablet 2020-0 10-26 00:00: 00 Yes 25mg Take 25 mg by mouth. [facility] spironolact one 25 mg tablet 2020-0 10-26 00:00: 00 Yes 25mg Take 25 mg by mouth. [facility] spironolact one 25 mg tablet 2020-0 10-26 00:00: 00 Yes 25mg Take 25 mg by mouth. [facility] spironolact one 25 mg tablet 2020-0 10-26 00:00: 00 Yes 25mg Take 25 mg by mouth. [facility] spironolact one 25 mg tablet 2020-0 10-26 00:00: 00 Yes 25mg Take 25 mg by mouth. [facility] spironolact one 25 mg tablet 2020-0 10-26 00:00: 00 Yes 25mg Take 25 mg by mouth. [facility] spironolact one 25 mg tablet 2020-0 10-26 00:00: 00 Yes 25mg Take 25 mg by mouth. [facility] spironolact one 25 mg tablet 2020-0 10-26 00:00: 00 Yes 25mg Take 25 mg by mouth. [facility] spironolact one 25 mg tablet 2020-0 10-26 00:00: 00 Yes 25mg Take 25 mg by mouth. [facility] spironolact one 25 mg tablet 2020-0 10-26 00:00: 00 Yes 25mg Take 25 mg by mouth. [facility] spironolact one 25 mg tablet 2020-0 10-26 00:00: 00 Yes 25mg Take 25 mg by mouth. [facility] spironolact one 25 mg tablet 2020-0 10-26 00:00: 00 Yes 25mg Take 25 mg by mouth. [facility] spironolact one 25 mg tablet 2020-0 10-26 00:00: 00 Yes 25mg Take 25 mg by mouth. [facility] spironolact one 25 mg tablet 2020-0 10-26 00:00: 00 Yes 25mg Take 25 mg by mouth. [facility] spironolact one 25 mg tablet 2020-0 10-26 00:00: 00 Yes 25mg Take 25 mg by mouth. [facility] spironolact one 25 mg tablet 2020-0 10-26 00:00: 00 Yes 25mg Take 25 mg by mouth. [facility] spironolact one 25 mg tablet 2020-0 10-26 00:00: 00 Yes 25mg Take 25 mg by mouth. [facility] spironolact one 25 mg tablet 2020-0 10-26 00:00: 00 Yes 25mg Take 25 mg by mouth. [facility] spironolact one 25 mg tablet 2020-0 10-26 00:00: 00 Yes 25mg Take 25 mg by mouth. [facility] spironolact one 25 mg tablet 2020-0 10-26 00:00: 00 Yes 25mg Take 25 mg by mouth. [facility] spironolact one 25 mg tablet 2020-0 10-26 00:00: 00 Yes 25mg Take 25 mg by mouth. [facility] spironolact one 25 mg tablet 2020-0 10-26 00:00: 00 Yes 25mg Take 25 mg by mouth. [facility] spironolact one 25 mg tablet 2020-0 10-26 00:00: 00 Yes 25mg Take 25 mg by mouth. [facility] spironolact one 25 mg tablet 2020-0 10-26 00:00: 00 Yes 25mg Take 25 mg by mouth. [facility] spironolact one 25 mg tablet 2020-0 10-26 00:00: 00 Yes 25mg Take 25 mg by mouth. [facility] spironolact one 25 mg tablet 2020-0 10-26 00:00: 00 Yes 25mg Take 25 mg by mouth. [facility] spironolact one 25 mg tablet 2020-0 10-26 00:00: 00 Yes 25mg Take 25 mg by mouth. [facility] spironolact one 25 mg tablet 0 10-26 00:00: 00 Yes 25mg Take 25 mg by mouth. [facility] spironolact one 25 mg tablet 2020-0 10-26 00:00: 00 Yes 25mg Take 25 mg by mouth. [facility] spironolact one 25 mg tablet 0 10-26 00:00: 00 Yes 25mg Take 25 mg by mouth. [facility] spironolact one 25 mg tablet 0 10-26 00:00: 00 Yes 25mg Take 25 mg by mouth. [facility] spironolact one 25 mg tablet 0 10-26 00:00: 00 Yes 25mg Take 25 mg by mouth. [facility] spironolact one 25 mg tablet 0 10-26 00:00: 00 Yes 25mg Take 25 mg by mouth. [facility] spironolact one 25 mg tablet 0 10-26 00:00: 00 Yes 25mg Take 25 mg by mouth. [facility] spironolact one 25 mg tablet 0 10-26 00:00: 00 Yes 25mg Take 25 mg by mouth. [facility] spironolact one 25 mg tablet 0 10-26 00:00: 00 Yes 25mg Take 25 mg by mouth. [facility] spironolact one 25 mg tablet 0 10-26 00:00: 00 Yes 25mg Take 25 mg by mouth. [facility] spironolact one 25 mg tablet 0 10-26 00:00: 00 Yes 25mg Take 25 mg by mouth. [facility] spironolact one 25 mg tablet 2020-0 10-26 00:00: 00 Yes 25mg Take 25 mg by mouth. [facility] spironolact one 25 mg tablet 0 10-26 00:00: 00 Yes 25mg Take 25 mg by mouth. [facility] spironolact one 25 mg tablet 2020-0 405 00:00: 00 Yes 25mg Take 25 mg by mouth. [facility] spironolact one 25 mg tablet 2020-0 405 00:00: 00 Yes 25mg Take 25 mg by mouth. [facility] spironolact one 25 mg tablet 2020-0 405 00:00: 00 Yes 25mg Take 25 mg by mouth. [facility] spironolact one 25 mg tablet 2020-0 405 00:00: 00 Yes 25mg Take 25 mg by mouth. [facility] spironolact one 25 mg tablet 2020-0 05 00:00: 00 Yes 25mg Take 25 mg by mouth. [facility] spironolact one 25 mg tablet 2020-0 4 00:00: 00 Yes 25mg Take 25 mg by mouth. [facility] spironolact one 25 mg tablet 2020-0 05 00:00: 00 Yes 25mg Take 25 mg by mouth. [facility] spironolact one 25 mg tablet 2020-0 05 00:00: 00 Yes 25mg Take 25 mg by mouth. [facility] spironolact one 25 mg tablet 2020-0 05 00:00: 00 Yes 25mg Take 25 mg by mouth. [facility] spironolact one 25 mg tablet 2020-0 05 00:00: 00 Yes 25mg Take 25 mg by mouth. [facility] spironolact one 25 mg tablet 2020-0 405 00:00: 00 Yes 25mg Take 25 mg by mouth. [facility] spironolact one 25 mg tablet 2020-0 05 00:00: 00 09-05 00:00 :00 No 25mg Take 25 mg by mouth. [facility] spironolact one 25 mg tablet 2020-0 405 00:00: 00 09-05 00:00 :00 No 25mg Take 25 mg by mouth. [facility] montelukast 10 mg tablet 2020-0 10-21 00:00: 00 Yes [facility] montelukast 10 mg tablet 2020-0 10-21 00:00: 00 Yes [facility] montelukast 10 mg tablet 2020-0 10-21 00:00: 00 Yes [facility] montelukast 10 mg tablet 2020-0 10-21 00:00: 00 Yes [facility] montelukast 10 mg tablet 2020-0 10-21 00:00: 00 Yes [facility] montelukast 10 mg tablet 2020-0 10-21 00:00: 00 Yes [facility] montelukast 10 mg tablet 2020-0 10-21 00:00: 00 Yes [facility] montelukast 10 mg tablet 2020-0 10-21 00:00: 00 Yes [facility] montelukast 10 mg tablet 2020-0 10-21 00:00: 00 Yes [facility] montelukast 10 mg tablet 2020-0 10-21 00:00: 00 Yes [facility] montelukast 10 mg tablet 2020-0 10-21 00:00: 00 Yes [facility] montelukast 10 mg tablet 0 10-21 00:00: 00 Yes [facility] montelukast 10 mg tablet 2020-0 10-21 00:00: 00 Yes [facility] montelukast 10 mg tablet 2020-0 10-21 00:00: 00 Yes [facility] montelukast 10 mg tablet 2020-0 10-21 00:00: 00 Yes [facility] montelukast 10 mg tablet 2020-0 10-21 00:00: 00 Yes [facility] montelukast 10 mg tablet 2020-0 10-21 00:00: 00 Yes [facility] montelukast 10 mg tablet 2020-0 10-21 00:00: 00 Yes [facility] montelukast 10 mg tablet 2020-0 10-21 00:00: 00 Yes [facility] montelukast 10 mg tablet 2020-0 10-21 00:00: 00 Yes [facility] montelukast 10 mg tablet 2020-0 10-21 00:00: 00 Yes [facility] montelukast 10 mg tablet 2020-0 10-21 00:00: 00 Yes [facility] montelukast 10 mg tablet 2020-0 10-21 00:00: 00 Yes [facility] montelukast 10 mg tablet 2020-0 10-21 00:00: 00 Yes [facility] montelukast 10 mg tablet 2020-0 10-21 00:00: 00 Yes [facility] montelukast 10 mg tablet 0 10-21 00:00: 00 Yes [facility] montelukast 10 mg tablet 2020-0 10-21 00:00: 00 Yes [facility] montelukast 10 mg tablet 2020-0 10-21 00:00: 00 Yes [facility] montelukast 10 mg tablet 2020-0 10-21 00:00: 00 Yes [facility] montelukast 10 mg tablet 2020-0 10-21 00:00: 00 Yes [facility] montelukast 10 mg tablet 0 10-21 00:00: 00 Yes [facility] montelukast 10 mg tablet 2020-0 10-21 00:00: 00 Yes [facility] montelukast 10 mg tablet 2020-0 10-21 00:00: 00 Yes [facility] montelukast 10 mg tablet 2020-0 10-21 00:00: 00 Yes [facility] montelukast 10 mg tablet 2020-0 10-21 00:00: 00 Yes [facility] montelukast 10 mg tablet 2020-0 10-21 00:00: 00 Yes [facility] montelukast 10 mg tablet 2020-0 10-21 00:00: 00 Yes [facility] montelukast 10 mg tablet 2020-0 10-21 00:00: 00 Yes [facility] montelukast 10 mg tablet 2020-0 10-21 00:00: 00 Yes [facility] montelukast 10 mg tablet 0 10-21 00:00: 00 Yes [facility] montelukast 10 mg tablet 2020-0 10-21 00:00: 00 Yes [facility] montelukast 10 mg tablet 2020-0 10-21 00:00: 00 Yes [facility] montelukast 10 mg tablet 0 10-21 00:00: 00 Yes [facility] montelukast 10 mg tablet 2020-0 10-21 00:00: 00 Yes [facility] montelukast 10 mg tablet 0 10-21 00:00: 00 Yes [facility] montelukast 10 mg tablet 2020-0 10-21 00:00: 00 Yes [facility] montelukast 10 mg tablet 2020-0 10-21 00:00: 00 Yes [facility] montelukast 10 mg tablet 0 10-21 00:00: 00 Yes [facility] montelukast 10 mg tablet 0 10-21 00:00: 00 Yes [facility] montelukast 10 mg tablet 0 10-21 00:00: 00 Yes [facility] montelukast 10 mg tablet 2020-0 10-21 00:00: 00 Yes [facility] montelukast 10 mg tablet 2020-0 10-21 00:00: 00 Yes [facility] montelukast 10 mg tablet 2020-0 10-21 00:00: 00 Yes [facility] montelukast 10 mg tablet 0 10-21 00:00: 00 Yes [facility] montelukast 10 mg tablet 2020-0 10-21 00:00: 00 Yes [facility] montelukast 10 mg tablet 2020-0 10-21 00:00: 00 Yes [facility] montelukast 10 mg tablet 2020-0 10-21 00:00: 00 Yes [facility] montelukast 10 mg tablet 2020-0 10-21 00:00: 00 Yes [facility] montelukast 10 mg tablet 2020-0 10-21 00:00: 00 Yes [facility] montelukast 10 mg tablet 2020-0 10-21 00:00: 00 Yes [facility] montelukast 10 mg tablet 2020-0 10-21 00:00: 00 Yes [facility] montelukast 10 mg tablet 2020-0 10-21 00:00: 00 Yes [facility] montelukast 10 mg tablet 2020-0 10-21 00:00: 00 Yes [facility] montelukast 10 mg tablet 2020-0 10-21 00:00: 00 Yes [facility] montelukast 10 mg tablet 2020-0 10-21 00:00: 00 Yes [facility] montelukast 10 mg tablet 2020-0 10-21 00:00: 00 Yes [facility] montelukast 10 mg tablet 2020-0 10-21 00:00: 00 Yes [facility] montelukast 10 mg tablet 2020-0 10-21 00:00: 00 Yes [facility] montelukast 10 mg tablet 2020-0 10-21 00:00: 00 Yes [facility] montelukast 10 mg tablet 2020-0 10-21 00:00: 00 Yes [facility] montelukast 10 mg tablet 2020-0 10-21 00:00: 00 Yes [facility] montelukast 10 mg tablet 2020-0 10-21 00:00: 00 Yes [facility] montelukast 10 mg tablet 2020-0 10-21 00:00: 00 Yes [facility] montelukast 10 mg tablet 2020-0 10-21 00:00: 00 Yes [facility] montelukast 10 mg tablet 2020-0 10-21 00:00: 00 Yes [facility] montelukast 10 mg tablet 2020-0 10-21 00:00: 00 Yes [facility] montelukast 10 mg tablet 0 10-21 00:00: 00 Yes [facility] montelukast 10 mg tablet 2020-0 10-21 00:00: 00 Yes [facility] montelukast 10 mg tablet 2020-0 10-21 00:00: 00 Yes [facility] montelukast 10 mg tablet 0 10-21 00:00: 00 Yes [facility] montelukast 10 mg tablet 0 10-21 00:00: 00 Yes [facility] montelukast 10 mg tablet 0 10-21 00:00: 00 Yes [facility] montelukast 10 mg tablet 0 10-21 00:00: 00 Yes [facility] montelukast 10 mg tablet 2020-0 10-21 00:00: 00 Yes [facility] montelukast 10 mg tablet 0 10-21 00:00: 00 Yes [facility] montelukast 10 mg tablet 0 10-21 00:00: 00 Yes [facility] montelukast 10 mg tablet 0 10-21 00:00: 00 Yes [facility] montelukast 10 mg tablet 2020-0 10-21 00:00: 00 Yes [facility] montelukast 10 mg tablet 0 10-21 00:00: 00 Yes [facility] montelukast 10 mg tablet 0 10-21 00:00: 00 Yes [facility] montelukast 10 mg tablet 0 10-21 00:00: 00 Yes [facility] montelukast 10 mg tablet 0 10-21 00:00: 00 Yes [facility] montelukast 10 mg tablet 2020-0 10-21 00:00: 00 Yes [facility] montelukast 10 mg tablet 2020-0 10-21 00:00: 00 Yes [facility] montelukast 10 mg tablet 2020-0 10-21 00:00: 00 Yes [facility] montelukast 10 mg tablet 2020-0 10-21 00:00: 00 Yes [facility] montelukast 10 mg tablet 2020-0 10-21 00:00: 00 Yes [facility] montelukast 10 mg tablet 2020-0 10-21 00:00: 00 Yes [facility] montelukast 10 mg tablet 2020-0 10-21 00:00: 00 Yes [facility] montelukast 10 mg tablet 2020-0 10-21 00:00: 00 Yes [facility] montelukast 10 mg tablet 2020-0 10-21 00:00: 00 Yes [facility] montelukast 10 mg tablet 2020-0 10-21 00:00: 00 Yes [facility] montelukast 10 mg tablet 2020-0 10-21 00:00: 00 Yes [facility] montelukast 10 mg tablet 2020-0 10-21 00:00: 00 Yes [facility] montelukast 10 mg tablet 2020-0 10-21 00:00: 00 Yes [facility] montelukast 10 mg tablet 2020-0 10-21 00:00: 00 Yes [facility] montelukast 10 mg tablet 2020-0 10-21 00:00: 00 Yes [facility] montelukast 10 mg tablet 2020-0 10-21 00:00: 00 Yes [facility] montelukast 10 mg tablet 2020-0 10-21 00:00: 00 Yes [facility] montelukast 10 mg tablet 2020-0 10-21 00:00: 00 Yes [facility] montelukast 10 mg tablet 2020-0 10-21 00:00: 00 Yes [facility] montelukast 10 mg tablet 2020-0 10-21 00:00: 00 Yes [facility] montelukast 10 mg tablet 2020-0 10-21 00:00: 00 Yes [facility] montelukast 10 mg tablet 0 10-21 00:00: 00 Yes [facility] montelukast 10 mg tablet 0 10-21 00:00: 00 Yes [facility] montelukast 10 mg tablet 2020-0 10-21 00:00: 00 Yes [facility] montelukast 10 mg tablet 0 10-21 00:00: 00 Yes [facility] montelukast 10 mg tablet 0 10-21 00:00: 00 Yes [facility] montelukast 10 mg tablet 0 10-21 00:00: 00 Yes [facility] montelukast 10 mg tablet 0 10-21 00:00: 00 Yes [facility] montelukast 10 mg tablet 0 10-21 00:00: 00 Yes [facility] montelukast 10 mg tablet 0 10-21 00:00: 00 Yes [facility] montelukast 10 mg tablet 0 10-21 00:00: 00 Yes [facility] montelukast 10 mg tablet 0 10-21 00:00: 00 Yes [facility] montelukast 10 mg tablet 0 10-21 00:00: 00 Yes [facility] montelukast 10 mg tablet 0 10-21 00:00: 00 Yes [facility] montelukast 10 mg tablet 0 10-21 00:00: 00 Yes [facility] montelukast 10 mg tablet 0 10-21 00:00: 00 Yes [facility] montelukast 10 mg tablet 0 10-21 00:00: 00 Yes [facility] montelukast 10 mg tablet 0 10-21 00:00: 00 Yes [facility] montelukast 10 mg tablet 2020-0 10-21 00:00: 00 Yes [facility] montelukast 10 mg tablet 0 10-21 00:00: 00 Yes [facility] montelukast 10 mg tablet 2020-0 10-21 00:00: 00 Yes [facility] montelukast 10 mg tablet 0 10-21 00:00: 00 Yes [facility] montelukast 10 mg tablet 0 10-21 00:00: 00 Yes [facility] montelukast 10 mg tablet 0 10-21 00:00: 00 Yes [facility] montelukast 10 mg tablet 0 10-21 00:00: 00 Yes [facility] montelukast 10 mg tablet 0 10-21 00:00: 00 Yes [facility] montelukast 10 mg tablet 0 10-21 00:00: 00 Yes [facility] montelukast 10 mg tablet 0 10-21 00:00: 00 Yes [facility] montelukast 10 mg tablet 0 10-21 00:00: 00 Yes [facility] montelukast 10 mg tablet 0 10-21 00:00: 00 Yes [facility] montelukast 10 mg tablet 0 10-21 00:00: 00 Yes [facility] montelukast 10 mg tablet 0 10-21 00:00: 00 Yes [facility] montelukast 10 mg tablet 0 10-21 00:00: 00 Yes [facility] montelukast 10 mg tablet 0 10-21 00:00: 00 Yes [facility] montelukast 10 mg tablet 0 10-21 00:00: 00 Yes [facility] ipratropium 21 mcg (0.03 %) nasal spray 2020-0 315 00:00: 00 Yes [facility] ipratropium 21 mcg (0.03 %) nasal spray 2020-0 15 00:00: 00 Yes [facility] ipratropium 21 mcg (0.03 %) nasal spray 2020-0 15 00:00: 00 Yes [facility] ipratropium 21 mcg (0.03 %) nasal spray 2020-0 15 00:00: 00 Yes [facility] ipratropium 21 mcg (0.03 %) nasal spray 2020-0 15 00:00: 00 Yes [facility] ipratropium 21 mcg (0.03 %) nasal spray 2020-0 15 00:00: 00 Yes [facility] ipratropium 21 mcg (0.03 %) nasal spray 2020-0 10-05 00:00: 00 Yes [facility] ipratropium 21 mcg (0.03 %) nasal spray 2020-0 10-05 00:00: 00 Yes [facility] ipratropium 21 mcg (0.03 %) nasal spray 2020-0 15 00:00: 00 Yes [facility] ipratropium 21 mcg (0.03 %) nasal spray 2020-0 10-05 00:00: 00 Yes [facility] ipratropium 21 mcg (0.03 %) nasal spray 2020-0 15 00:00: 00 Yes [facility] ipratropium 21 mcg (0.03 %) nasal spray 2020-0 15 00:00: 00 Yes [facility] ipratropium 21 mcg (0.03 %) nasal spray 2020-0 15 00:00: 00 Yes [facility] ipratropium 21 mcg (0.03 %) nasal spray 2020-0 15 00:00: 00 Yes [facility] ipratropium 21 mcg (0.03 %) nasal spray 2020-0 15 00:00: 00 Yes [facility] ipratropium 21 mcg (0.03 %) nasal spray 2020-0 3-15 00:00: 00 Yes [facility] ipratropium 21 mcg (0.03 %) nasal spray 2020-0 15 00:00: 00 Yes [facility] ipratropium 21 mcg (0.03 %) nasal spray 2020-0 15 00:00: 00 Yes [facility] ipratropium 21 mcg (0.03 %) nasal spray 2020-0 10-05 00:00: 00 Yes [facility] ipratropium 21 mcg (0.03 %) nasal spray 2020-0 10-05 00:00: 00 Yes [facility] ipratropium 21 mcg (0.03 %) nasal spray 2020-0 10-05 00:00: 00 Yes [facility] ipratropium 21 mcg (0.03 %) nasal spray 2020-0 10-05 00:00: 00 Yes [facility] ipratropium 21 mcg (0.03 %) nasal spray 0 10-05 00:00: 00 Yes [facility] ipratropium 21 mcg (0.03 %) nasal spray 2020-0 10-05 00:00: 00 Yes [facility] ipratropium 21 mcg (0.03 %) nasal spray 0 10-05 00:00: 00 Yes [facility] ipratropium 21 mcg (0.03 %) nasal spray 0 10-05 00:00: 00 Yes [facility] ipratropium 21 mcg (0.03 %) nasal spray 2020-0 10-05 00:00: 00 Yes [facility] ipratropium 21 mcg (0.03 %) nasal spray 2020-0 10-05 00:00: 00 Yes [facility] ipratropium 21 mcg (0.03 %) nasal spray 2020-0 10-05 00:00: 00 Yes [facility] ipratropium 21 mcg (0.03 %) nasal spray 2020-0 10-05 00:00: 00 Yes [facility] ipratropium 21 mcg (0.03 %) nasal spray 2020-0 10-05 00:00: 00 Yes [facility] ipratropium 21 mcg (0.03 %) nasal spray 0 10-05 00:00: 00 Yes [facility] ipratropium 21 mcg (0.03 %) nasal spray 2020-0 10-05 00:00: 00 Yes [facility] ipratropium 21 mcg (0.03 %) nasal spray 0 10-05 00:00: 00 Yes [facility] ipratropium 21 mcg (0.03 %) nasal spray 0 10-05 00:00: 00 Yes [facility] ipratropium 21 mcg (0.03 %) nasal spray 0 10-05 00:00: 00 Yes [facility] ipratropium 21 mcg (0.03 %) nasal spray 0 10-05 00:00: 00 Yes [facility] ipratropium 21 mcg (0.03 %) nasal spray 0 10-05 00:00: 00 Yes [facility] ipratropium 21 mcg (0.03 %) nasal spray 0 10-05 00:00: 00 Yes [facility] ipratropium 21 mcg (0.03 %) nasal spray 0 10-05 00:00: 00 Yes [facility] ipratropium 21 mcg (0.03 %) nasal spray 0 10-05 00:00: 00 Yes [facility] ipratropium 21 mcg (0.03 %) nasal spray 0 10-05 00:00: 00 Yes [facility] ipratropium 21 mcg (0.03 %) nasal spray 0 10-05 00:00: 00 Yes [facility] ipratropium 21 mcg (0.03 %) nasal spray 0 10-05 00:00: 00 Yes [facility] ipratropium 21 mcg (0.03 %) nasal spray 0 10-05 00:00: 00 Yes [facility] ipratropium 21 mcg (0.03 %) nasal spray 2020-0 15 00:00: 00 Yes [facility] ipratropium 21 mcg (0.03 %) nasal spray 2020-0 15 00:00: 00 Yes [facility] ipratropium 21 mcg (0.03 %) nasal spray 2020-0 15 00:00: 00 Yes [facility] ipratropium 21 mcg (0.03 %) nasal spray 2020-0 15 00:00: 00 Yes [facility] ipratropium 21 mcg (0.03 %) nasal spray 2020-0 10-05 00:00: 00 Yes [facility] ipratropium 21 mcg (0.03 %) nasal spray 2020-0 10-05 00:00: 00 Yes [facility] ipratropium 21 mcg (0.03 %) nasal spray 2020-0 10-05 00:00: 00 Yes [facility] ipratropium 21 mcg (0.03 %) nasal spray 2020-0 10-05 00:00: 00 Yes [facility] ipratropium 21 mcg (0.03 %) nasal spray 0 10-05 00:00: 00 Yes [facility] ipratropium 21 mcg (0.03 %) nasal spray 2020-0 10-05 00:00: 00 Yes [facility] ipratropium 21 mcg (0.03 %) nasal spray 2020-0 10-05 00:00: 00 Yes [facility] ipratropium 21 mcg (0.03 %) nasal spray 2020-0 15 00:00: 00 Yes [facility] ipratropium 21 mcg (0.03 %) nasal spray 2020-0 15 00:00: 00 Yes [facility] ipratropium 21 mcg (0.03 %) nasal spray 2020-0 15 00:00: 00 Yes [facility] ipratropium 21 mcg (0.03 %) nasal spray 2020-0 15 00:00: 00 Yes [facility] ipratropium 21 mcg (0.03 %) nasal spray 2020-0 15 00:00: 00 Yes [facility] ipratropium 21 mcg (0.03 %) nasal spray 2020-0 15 00:00: 00 Yes [facility] ipratropium 21 mcg (0.03 %) nasal spray 2020-0 15 00:00: 00 Yes [facility] ipratropium 21 mcg (0.03 %) nasal spray 2020-0 15 00:00: 00 Yes [facility] ipratropium 21 mcg (0.03 %) nasal spray 2020-0 15 00:00: 00 Yes [facility] ipratropium 21 mcg (0.03 %) nasal spray 2020-0 10-05 00:00: 00 Yes [facility] ipratropium 21 mcg (0.03 %) nasal spray 2020-0 10-05 00:00: 00 Yes [facility] ipratropium 21 mcg (0.03 %) nasal spray 2020-0 10-05 00:00: 00 Yes [facility] ipratropium 21 mcg (0.03 %) nasal spray 0 10-05 00:00: 00 Yes [facility] ipratropium 21 mcg (0.03 %) nasal spray 0 10-05 00:00: 00 Yes [facility] ipratropium 21 mcg (0.03 %) nasal spray 2020-0 15 00:00: 00 Yes [facility] ipratropium 21 mcg (0.03 %) nasal spray 2020-0 15 00:00: 00 Yes [facility] ipratropium 21 mcg (0.03 %) nasal spray 2020-0 15 00:00: 00 Yes [facility] ipratropium 21 mcg (0.03 %) nasal spray 2020-0 15 00:00: 00 Yes [facility] ipratropium 21 mcg (0.03 %) nasal spray 2020-0 10-05 00:00: 00 Yes [facility] ipratropium 21 mcg (0.03 %) nasal spray 0 10-05 00:00: 00 Yes [facility] ipratropium 21 mcg (0.03 %) nasal spray 2020-0 10-05 00:00: 00 Yes [facility] ipratropium 21 mcg (0.03 %) nasal spray 0 10-05 00:00: 00 Yes [facility] ipratropium 21 mcg (0.03 %) nasal spray 0 10-05 00:00: 00 Yes [facility] ipratropium 21 mcg (0.03 %) nasal spray 0 10-05 00:00: 00 Yes [facility] ipratropium 21 mcg (0.03 %) nasal spray 0 10-05 00:00: 00 Yes [facility] ipratropium 21 mcg (0.03 %) nasal spray 0 10-05 00:00: 00 Yes [facility] ipratropium 21 mcg (0.03 %) nasal spray 0 10-05 00:00: 00 Yes [facility] ipratropium 21 mcg (0.03 %) nasal spray 0 10-05 00:00: 00 Yes [facility] ipratropium 21 mcg (0.03 %) nasal spray 0 10-05 00:00: 00 Yes [facility] ipratropium 21 mcg (0.03 %) nasal spray 0 10-05 00:00: 00 Yes [facility] ipratropium 21 mcg (0.03 %) nasal spray 0 10-05 00:00: 00 Yes [facility] ipratropium 21 mcg (0.03 %) nasal spray 0 10-05 00:00: 00 Yes [facility] ipratropium 21 mcg (0.03 %) nasal spray 0 10-05 00:00: 00 Yes [facility] ipratropium 21 mcg (0.03 %) nasal spray 2020-0 15 00:00: 00 Yes [facility] ipratropium 21 mcg (0.03 %) nasal spray 2020-0 15 00:00: 00 Yes [facility] ipratropium 21 mcg (0.03 %) nasal spray 2020-0 15 00:00: 00 Yes [facility] ipratropium 21 mcg (0.03 %) nasal spray 2020-0 15 00:00: 00 Yes [facility] ipratropium 21 mcg (0.03 %) nasal spray 2020-0 15 00:00: 00 Yes [facility] ipratropium 21 mcg (0.03 %) nasal spray 2020-0 10-05 00:00: 00 Yes [facility] ipratropium 21 mcg (0.03 %) nasal spray 0 10-05 00:00: 00 Yes [facility] ipratropium 21 mcg (0.03 %) nasal spray 2020-0 10-05 00:00: 00 Yes [facility] ipratropium 21 mcg (0.03 %) nasal spray 0 10-05 00:00: 00 Yes [facility] ipratropium 21 mcg (0.03 %) nasal spray 0 10-05 00:00: 00 Yes [facility] ipratropium 21 mcg (0.03 %) nasal spray 2020-0 10-05 00:00: 00 Yes [facility] ipratropium 21 mcg (0.03 %) nasal spray 2020-0 15 00:00: 00 Yes [facility] ipratropium 21 mcg (0.03 %) nasal spray 2020-0 15 00:00: 00 Yes [facility] ipratropium 21 mcg (0.03 %) nasal spray 2020-0 15 00:00: 00 Yes [facility] ipratropium 21 mcg (0.03 %) nasal spray 2020-0 15 00:00: 00 Yes [facility] ipratropium 21 mcg (0.03 %) nasal spray 2020-0 15 00:00: 00 Yes [facility] ipratropium 21 mcg (0.03 %) nasal spray 2020-0 15 00:00: 00 Yes [facility] ipratropium 21 mcg (0.03 %) nasal spray 2020-0 15 00:00: 00 Yes [facility] ipratropium 21 mcg (0.03 %) nasal spray 2020-0 15 00:00: 00 Yes [facility] ipratropium 21 mcg (0.03 %) nasal spray 2020-0 15 00:00: 00 Yes [facility] ipratropium 21 mcg (0.03 %) nasal spray 2020-0 15 00:00: 00 Yes [facility] ipratropium 21 mcg (0.03 %) nasal spray 2020-0 10-05 00:00: 00 Yes [facility] ipratropium 21 mcg (0.03 %) nasal spray 2020-0 15 00:00: 00 Yes [facility] ipratropium 21 mcg (0.03 %) nasal spray 2020-0 15 00:00: 00 Yes [facility] ipratropium 21 mcg (0.03 %) nasal spray 2020-0 15 00:00: 00 Yes [facility] ipratropium 21 mcg (0.03 %) nasal spray 2020-0 15 00:00: 00 Yes [facility] ipratropium 21 mcg (0.03 %) nasal spray 2020-0 15 00:00: 00 Yes [facility] ipratropium 21 mcg (0.03 %) nasal spray 2020-0 15 00:00: 00 Yes [facility] ipratropium 21 mcg (0.03 %) nasal spray 2020-0 15 00:00: 00 Yes [facility] ipratropium 21 mcg (0.03 %) nasal spray 0 3-15 00:00: 00 Yes [facility] ipratropium 21 mcg (0.03 %) nasal spray 0 10-05 00:00: 00 Yes [facility] ipratropium 21 mcg (0.03 %) nasal spray 2020-0 10-05 00:00: 00 Yes [facility] ipratropium 21 mcg (0.03 %) nasal spray 0 10-05 00:00: 00 Yes [facility] ipratropium 21 mcg (0.03 %) nasal spray 2020-0 10-05 00:00: 00 Yes [facility] ipratropium 21 mcg (0.03 %) nasal spray 0 10-05 00:00: 00 Yes [facility] ipratropium 21 mcg (0.03 %) nasal spray 0 10-05 00:00: 00 Yes [facility] ipratropium 21 mcg (0.03 %) nasal spray 0 10-05 00:00: 00 Yes [facility] ipratropium 21 mcg (0.03 %) nasal spray 0 10-05 00:00: 00 Yes [facility] ipratropium 21 mcg (0.03 %) nasal spray 0 10-05 00:00: 00 Yes [facility] ipratropium 21 mcg (0.03 %) nasal spray 0 10-05 00:00: 00 Yes [facility] ipratropium 21 mcg (0.03 %) nasal spray 0 10-05 00:00: 00 Yes [facility] ipratropium 21 mcg (0.03 %) nasal spray 0 10-05 00:00: 00 Yes [facility] ipratropium 21 mcg (0.03 %) nasal spray 0 10-05 00:00: 00 Yes [facility] ipratropium 21 mcg (0.03 %) nasal spray 2020-0 10-05 00:00: 00 Yes [facility] ipratropium 21 mcg (0.03 %) nasal spray 2020-0 15 00:00: 00 Yes [facility] ipratropium 21 mcg (0.03 %) nasal spray 0 15 00:00: 00 Yes [facility] ipratropium 21 mcg (0.03 %) nasal spray 0 10-05 00:00: 00 Yes [facility] ipratropium 21 mcg (0.03 %) nasal spray 0 10-05 00:00: 00 Yes [facility] ipratropium 21 mcg (0.03 %) nasal spray 0 10-05 00:00: 00 Yes [facility] ipratropium 21 mcg (0.03 %) nasal spray 0 10-05 00:00: 00 Yes [facility] ipratropium 21 mcg (0.03 %) nasal spray 0 10-05 00:00: 00 Yes [facility] ipratropium 21 mcg (0.03 %) nasal spray 0 10-05 00:00: 00 Yes [facility] ipratropium 21 mcg (0.03 %) nasal spray 0 10-05 00:00: 00 Yes [facility] ipratropium 21 mcg (0.03 %) nasal spray 0 10-05 00:00: 00 Yes [facility] ipratropium 21 mcg (0.03 %) nasal spray 0 10-05 00:00: 00 Yes [facility] ipratropium 21 mcg (0.03 %) nasal spray 0 10-05 00:00: 00 Yes [facility] ipratropium 21 mcg (0.03 %) nasal spray 0 10-05 00:00: 00 Yes [facility] ipratropium 21 mcg (0.03 %) nasal spray 0 15 00:00: 00 Yes [facility] hyoscyamine sulfate 0.125 mg sublingual tablet 2020-0 2-03 00:00: 00 Yes [facility] hyoscyamine sulfate 0.125 mg sublingual tablet 2020-0 2- 00:00: 00 Yes [facility] hyoscyamine sulfate 0.125 mg sublingual tablet 2020-0 2- 00:00: 00 Yes [facility] hyoscyamine sulfate 0.125 mg sublingual tablet 2020-0 2- 00:00: 00 Yes [facility] hyoscyamine sulfate 0.125 mg sublingual tablet 2020-0 2- 00:00: 00 Yes [facility] hyoscyamine sulfate 0.125 mg sublingual tablet 2020-0 2- 00:00: 00 Yes [facility] hyoscyamine sulfate 0.125 mg sublingual tablet 2020-0 2- 00:00: 00 Yes [facility] hyoscyamine sulfate 0.125 mg sublingual tablet 2020-0 2- 00:00: 00 Yes [facility] hyoscyamine sulfate 0.125 mg sublingual tablet 2020-0 2- 00:00: 00 Yes [facility] hyoscyamine sulfate 0.125 mg sublingual tablet 2020-0 2- 00:00: 00 Yes [facility] hyoscyamine sulfate 0.125 mg sublingual tablet 2020-0 2- 00:00: 00 Yes [facility] hyoscyamine sulfate 0.125 mg sublingual tablet 2020-0 2- 00:00: 00 Yes [facility] hyoscyamine sulfate 0.125 mg sublingual tablet 2020-0 2- 00:00: 00 Yes [facility] hyoscyamine sulfate 0.125 mg sublingual tablet 2020-0 2- 00:00: 00 Yes [facility] hyoscyamine sulfate 0.125 mg sublingual tablet 2020-0 2- 00:00: 00 Yes [facility] hyoscyamine sulfate 0.125 mg sublingual tablet 2020-0 2- 00:00: 00 Yes [facility] hyoscyamine sulfate 0.125 mg sublingual tablet 2020-0 2- 00:00: 00 Yes [facility] hyoscyamine sulfate 0.125 mg sublingual tablet 2020-0 2 00:00: 00 Yes [facility] hyoscyamine sulfate 0.125 mg sublingual tablet 2020-0 2- 00:00: 00 Yes [facility] hyoscyamine sulfate 0.125 mg sublingual tablet 2020-0 2 00:00: 00 Yes [facility] hyoscyamine sulfate 0.125 mg sublingual tablet 2020-0 2- 00:00: 00 Yes [facility] hyoscyamine sulfate 0.125 mg sublingual tablet 2020-0 2 00:00: 00 Yes [facility] hyoscyamine sulfate 0.125 mg sublingual tablet 0 2 00:00: 00 Yes [facility] hyoscyamine sulfate 0.125 mg sublingual tablet 2020-0 2 00:00: 00 Yes [facility] hyoscyamine sulfate 0.125 mg sublingual tablet 0 2 00:00: 00 Yes [facility] hyoscyamine sulfate 0.125 mg sublingual tablet 0 2 00:00: 00 Yes [facility] hyoscyamine sulfate 0.125 mg sublingual tablet 0 2 00:00: 00 Yes [facility] hyoscyamine sulfate 0.125 mg sublingual tablet 2020-0 2- 00:00: 00 Yes [facility] hyoscyamine sulfate 0.125 mg sublingual tablet 2020-0 2- 00:00: 00 Yes [facility] hyoscyamine sulfate 0.125 mg sublingual tablet 2020-0 2- 00:00: 00 Yes [facility] hyoscyamine sulfate 0.125 mg sublingual tablet 0 2- 00:00: 00 Yes [facility] hyoscyamine sulfate 0.125 mg sublingual tablet 2020-0 2- 00:00: 00 Yes [facility] hyoscyamine sulfate 0.125 mg sublingual tablet 2020-0 2- 00:00: 00 Yes [facility] hyoscyamine sulfate 0.125 mg sublingual tablet 2020-0 2- 00:00: 00 Yes [facility] hyoscyamine sulfate 0.125 mg sublingual tablet 2020-0 2- 00:00: 00 Yes [facility] hyoscyamine sulfate 0.125 mg sublingual tablet 2020-0 2- 00:00: 00 Yes [facility] hyoscyamine sulfate 0.125 mg sublingual tablet 2020-0 2- 00:00: 00 Yes [facility] hyoscyamine sulfate 0.125 mg sublingual tablet 2020-0 2- 00:00: 00 Yes [facility] hyoscyamine sulfate 0.125 mg sublingual tablet 2020-0 2- 00:00: 00 Yes [facility] hyoscyamine sulfate 0.125 mg sublingual tablet 2020-0 2- 00:00: 00 Yes [facility] hyoscyamine sulfate 0.125 mg sublingual tablet 2020-0 2- 00:00: 00 Yes [facility] hyoscyamine sulfate 0.125 mg sublingual tablet 2020-0 2- 00:00: 00 Yes [facility] hyoscyamine sulfate 0.125 mg sublingual tablet 2020-0 2- 00:00: 00 Yes [facility] hyoscyamine sulfate 0.125 mg sublingual tablet 2020-0 2- 00:00: 00 Yes [facility] hyoscyamine sulfate 0.125 mg sublingual tablet 2020-0 2- 00:00: 00 Yes [facility] hyoscyamine sulfate 0.125 mg sublingual tablet 2020-0 2- 00:00: 00 Yes [facility] hyoscyamine sulfate 0.125 mg sublingual tablet 2020-0 2- 00:00: 00 Yes [facility] hyoscyamine sulfate 0.125 mg sublingual tablet 2020-0 2- 00:00: 00 Yes [facility] hyoscyamine sulfate 0.125 mg sublingual tablet 2020-0 2- 00:00: 00 Yes [facility] hyoscyamine sulfate 0.125 mg sublingual tablet 2020-0 2- 00:00: 00 Yes [facility] hyoscyamine sulfate 0.125 mg sublingual tablet 2020-0 2- 00:00: 00 Yes [facility] hyoscyamine sulfate 0.125 mg sublingual tablet 2020-0 2- 00:00: 00 Yes [facility] hyoscyamine sulfate 0.125 mg sublingual tablet 2020-0 2- 00:00: 00 Yes [facility] hyoscyamine sulfate 0.125 mg sublingual tablet 2020-0 2- 00:00: 00 Yes [facility] hyoscyamine sulfate 0.125 mg sublingual tablet 2020-0 2 00:00: 00 Yes [facility] hyoscyamine sulfate 0.125 mg sublingual tablet 2020-0 2- 00:00: 00 Yes [facility] hyoscyamine sulfate 0.125 mg sublingual tablet 2020-0 2- 00:00: 00 Yes [facility] hyoscyamine sulfate 0.125 mg sublingual tablet 2020-0 2- 00:00: 00 Yes [facility] hyoscyamine sulfate 0.125 mg sublingual tablet 2020-0 2- 00:00: 00 Yes [facility] hyoscyamine sulfate 0.125 mg sublingual tablet 2020-0 2- 00:00: 00 Yes [facility] hyoscyamine sulfate 0.125 mg sublingual tablet 2020-0 2- 00:00: 00 Yes [facility] hyoscyamine sulfate 0.125 mg sublingual tablet 2020-0 2- 00:00: 00 Yes [facility] hyoscyamine sulfate 0.125 mg sublingual tablet 2020-0 2- 00:00: 00 Yes [facility] hyoscyamine sulfate 0.125 mg sublingual tablet 0 2 00:00: 00 Yes [facility] hyoscyamine sulfate 0.125 mg sublingual tablet 0 2 00:00: 00 Yes [facility] hyoscyamine sulfate 0.125 mg sublingual tablet 0 2 00:00: 00 Yes [facility] hyoscyamine sulfate 0.125 mg sublingual tablet 0 2 00:00: 00 Yes [facility] hyoscyamine sulfate 0.125 mg sublingual tablet 0 2 00:00: 00 Yes [facility] hyoscyamine sulfate 0.125 mg sublingual tablet 0 08-26 00:00: 00 Yes [facility] hyoscyamine sulfate 0.125 mg sublingual tablet 0 2 00:00: 00 Yes [facility] hyoscyamine sulfate 0.125 mg sublingual tablet 0 08-26 00:00: 00 Yes [facility] hyoscyamine sulfate 0.125 mg sublingual tablet 0 2 00:00: 00 Yes [facility] hyoscyamine sulfate 0.125 mg sublingual tablet 0 08-26 00:00: 00 Yes [facility] hyoscyamine sulfate 0.125 mg sublingual tablet 0 2 00:00: 00 Yes [facility] hyoscyamine sulfate 0.125 mg sublingual tablet 0 2 00:00: 00 Yes [facility] hyoscyamine sulfate 0.125 mg sublingual tablet 0 2- 00:00: 00 Yes [facility] hyoscyamine sulfate 0.125 mg sublingual tablet 0 2- 00:00: 00 Yes [facility] hyoscyamine sulfate 0.125 mg sublingual tablet 0 2- 00:00: 00 Yes [facility] hyoscyamine sulfate 0.125 mg sublingual tablet 2020-0 2- 00:00: 00 Yes [facility] hyoscyamine sulfate 0.125 mg sublingual tablet 2020-0 2- 00:00: 00 Yes [facility] hyoscyamine sulfate 0.125 mg sublingual tablet 2020-0 2- 00:00: 00 Yes [facility] hyoscyamine sulfate 0.125 mg sublingual tablet 2020-0 2- 00:00: 00 Yes [facility] hyoscyamine sulfate 0.125 mg sublingual tablet 2020-0 2- 00:00: 00 Yes [facility] hyoscyamine sulfate 0.125 mg sublingual tablet 2020-0 2- 00:00: 00 Yes [facility] hyoscyamine sulfate 0.125 mg sublingual tablet 2020-0 2- 00:00: 00 Yes [facility] hyoscyamine sulfate 0.125 mg sublingual tablet 2020-0 2- 00:00: 00 Yes [facility] hyoscyamine sulfate 0.125 mg sublingual tablet 2020-0 2- 00:00: 00 Yes [facility] hyoscyamine sulfate 0.125 mg sublingual tablet 2020-0 2- 00:00: 00 Yes [facility] hyoscyamine sulfate 0.125 mg sublingual tablet 2020-0 2- 00:00: 00 Yes [facility] hyoscyamine sulfate 0.125 mg sublingual tablet 2020-0 2- 00:00: 00 Yes [facility] hyoscyamine sulfate 0.125 mg sublingual tablet 2020-0 2- 00:00: 00 Yes [facility] hyoscyamine sulfate 0.125 mg sublingual tablet 2020-0 2- 00:00: 00 Yes [facility] hyoscyamine sulfate 0.125 mg sublingual tablet 2020-0 2- 00:00: 00 Yes [facility] hyoscyamine sulfate 0.125 mg sublingual tablet 2020-0 2- 00:00: 00 Yes [facility] hyoscyamine sulfate 0.125 mg sublingual tablet 2020-0 2-03 00:00: 00 Yes [facility] hyoscyamine sulfate 0.125 mg sublingual tablet 0 2- 00:00: 00 Yes [facility] hyoscyamine sulfate 0.125 mg sublingual tablet 0 2- 00:00: 00 Yes [facility] hyoscyamine sulfate 0.125 mg sublingual tablet 0 2 00:00: 00 Yes [facility] hyoscyamine sulfate 0.125 mg sublingual tablet 2020-0 2- 00:00: 00 Yes [facility] hyoscyamine sulfate 0.125 mg sublingual tablet 0 2 00:00: 00 Yes [facility] hyoscyamine sulfate 0.125 mg sublingual tablet 0 2 00:00: 00 Yes [facility] hyoscyamine sulfate 0.125 mg sublingual tablet 0 2 00:00: 00 Yes [facility] hyoscyamine sulfate 0.125 mg sublingual tablet 0 2- 00:00: 00 Yes [facility] hyoscyamine sulfate 0.125 mg sublingual tablet 0 2 00:00: 00 Yes [facility] hyoscyamine sulfate 0.125 mg sublingual tablet 0 2- 00:00: 00 Yes [facility] hyoscyamine sulfate 0.125 mg sublingual tablet 0 2- 00:00: 00 Yes [facility] hyoscyamine sulfate 0.125 mg sublingual tablet 0 2- 00:00: 00 Yes [facility] hyoscyamine sulfate 0.125 mg sublingual tablet 2020-0 2- 00:00: 00 Yes [facility] hyoscyamine sulfate 0.125 mg sublingual tablet 0 2- 00:00: 00 Yes [facility] hyoscyamine sulfate 0.125 mg sublingual tablet 2020-0 2- 00:00: 00 Yes [facility] hyoscyamine sulfate 0.125 mg sublingual tablet 2020-0 2-03 00:00: 00 Yes [facility] hyoscyamine sulfate 0.125 mg sublingual tablet 2020-0 2- 00:00: 00 Yes [facility] hyoscyamine sulfate 0.125 mg sublingual tablet 0 2- 00:00: 00 Yes [facility] hyoscyamine sulfate 0.125 mg sublingual tablet 2020-0 2- 00:00: 00 Yes [facility] hyoscyamine sulfate 0.125 mg sublingual tablet 2020-0 2 00:00: 00 Yes [facility] hyoscyamine sulfate 0.125 mg sublingual tablet 2020-0 2 00:00: 00 Yes [facility] hyoscyamine sulfate 0.125 mg sublingual tablet 0 2 00:00: 00 Yes [facility] hyoscyamine sulfate 0.125 mg sublingual tablet 0 2 00:00: 00 Yes [facility] hyoscyamine sulfate 0.125 mg sublingual tablet 2020-0 2 00:00: 00 Yes [facility] hyoscyamine sulfate 0.125 mg sublingual tablet 0 2- 00:00: 00 Yes [facility] hyoscyamine sulfate 0.125 mg sublingual tablet 0 2- 00:00: 00 Yes [facility] hyoscyamine sulfate 0.125 mg sublingual tablet 2020-0 2- 00:00: 00 Yes [facility] hyoscyamine sulfate 0.125 mg sublingual tablet 0 2- 00:00: 00 Yes [facility] hyoscyamine sulfate 0.125 mg sublingual tablet 0 2- 00:00: 00 Yes [facility] hyoscyamine sulfate 0.125 mg sublingual tablet 0 2- 00:00: 00 Yes [facility] hyoscyamine sulfate 0.125 mg sublingual tablet 2020-0 2- 00:00: 00 Yes [facility] hyoscyamine sulfate 0.125 mg sublingual tablet 2020-0 2- 00:00: 00 Yes [facility] hyoscyamine sulfate 0.125 mg sublingual tablet 2020-0 2- 00:00: 00 Yes [facility] hyoscyamine sulfate 0.125 mg sublingual tablet 2020-0 2- 00:00: 00 Yes [facility] hyoscyamine sulfate 0.125 mg sublingual tablet 2020-0 2- 00:00: 00 Yes [facility] hyoscyamine sulfate 0.125 mg sublingual tablet 2020-0 2- 00:00: 00 Yes [facility] hyoscyamine sulfate 0.125 mg sublingual tablet 2020-0 2- 00:00: 00 Yes [facility] hyoscyamine sulfate 0.125 mg sublingual tablet 2020-0 2- 00:00: 00 Yes [facility] hyoscyamine sulfate 0.125 mg sublingual tablet 2020-0 2- 00:00: 00 Yes [facility] hyoscyamine sulfate 0.125 mg sublingual tablet 2020-0 2- 00:00: 00 Yes [facility] hyoscyamine sulfate 0.125 mg sublingual tablet 2020-0 2- 00:00: 00 Yes [facility] hyoscyamine sulfate 0.125 mg sublingual tablet 2020-0 2- 00:00: 00 Yes [facility] hyoscyamine sulfate 0.125 mg sublingual tablet 2020-0 2- 00:00: 00 Yes [facility] hyoscyamine sulfate 0.125 mg sublingual tablet 2020-0 2- 00:00: 00 Yes [facility] hyoscyamine sulfate 0.125 mg sublingual tablet 2020-0 2- 00:00: 00 Yes [facility] hyoscyamine sulfate 0.125 mg sublingual tablet 2020-0 2- 00:00: 00 Yes [facility] hyoscyamine sulfate 0.125 mg sublingual tablet 2020-0 2- 00:00: 00 Yes [facility] hyoscyamine sulfate 0.125 mg sublingual tablet 2 00:00: 00 Yes [facility] hyoscyamine sulfate 0.125 mg sublingual tablet 2 00:00: 00 Yes [facility] hyoscyamine sulfate 0.125 mg sublingual tablet 2 00:00: 00 Yes [facility] hyoscyamine sulfate 0.125 mg sublingual tablet 2 00:00: 00 Yes [facility] hyoscyamine sulfate 0.125 mg sublingual tablet 2 00:00: 00 Yes [facility] Colace 100 MG Colace 100 MG No 1{capsu le_as_n eeded} QD Colace 100 MG atorvastati n atorvastati n No atorvastat in Mometasone Furoate Mometasone Furoate No Mometasone Furoate Centrum Silver - Centrum Silver - No Centrum Silver - Lipitor 40 MG Lipitor 40 MG No 1{table t} QD Lipitor 40 MG Ensure - Ensure - No Ensure - Budesonide- Formoterol Fumarate 160-4.5 MCG/ACT Budesonide- Formoterol Fumarate 160-4.5 MCG/ACT No 2{puffs } BID Budesonide -Formotero l Fumarate 160-4.5 MCG/ACT Fish Oil Fish Oil No Fish Oil Vitamin K1 Vitamin K1 No Vitamin K1 Aspirin 81 81 MG Aspirin 81 81 MG No 1{table t} QD Aspirin 81 81 MG Vitamin B 12 Vitamin B 12 No Vitamin B 12 Magnesium 400 MG Magnesium 400 MG No Magnesium 400 MG Furosemide Furosemide No Furosemide Felodipine ER 10 MG Felodipine ER 10 MG No 1{table t} QD Felodipine ER 10 MG Spironolact one Spironolact one No Spironolac tone Vitamin D Vitamin D No Vitamin D Vitamin C 500 MG Vitamin C 500 MG No Vitamin C 500 MG Budesonide (Nasal) Budesonide (Nasal) No Budesonide (Nasal) Klor-Con Klor-Con No Klor-Con Metoprolol Succinate ER 25 MG Metoprolol Succinate ER 25 MG No 1{table t} QD Metoprolol Succinate ER 25 MG CoQ-10 CoQ-10 No CoQ-10 Budesonide (Nasal) Budesonide (Nasal) No Budesonide (Nasal) Ensure - Ensure - No Ensure - Klor-Con Klor-Con No Klor-Con Budesonide- Formoterol Fumarate 160-4.5 MCG/ACT Budesonide- Formoterol Fumarate 160-4.5 MCG/ACT No 2{puffs } BID Budesonide -Formotero l Fumarate 160-4.5 MCG/ACT Aspirin 81 81 MG Aspirin 81 81 MG No 1{table t} QD Aspirin 81 81 MG Furosemide Furosemide No Furosemide Vitamin D Vitamin D No Vitamin D Magnesium 400 MG Magnesium 400 MG No Magnesium 400 MG Colace 100 MG Colace 100 MG No 1{capsu le_as_n eeded} QD Colace 100 MG Lipitor 40 MG Lipitor 40 MG No 1{table t} QD Lipitor 40 MG Fish Oil Fish Oil No Fish Oil Spironolact one Spironolact one No Spironolac tone Vitamin C 500 MG Vitamin C 500 MG No Vitamin C 500 MG atorvastati n atorvastati n No atorvastat in Vitamin B 12 Vitamin B 12 No Vitamin B 12 Felodipine ER 10 MG Felodipine ER 10 MG No 1{table t} QD Felodipine ER 10 MG Metoprolol Succinate ER 25 MG Metoprolol Succinate ER 25 MG No 1{table t} QD Metoprolol Succinate ER 25 MG Mometasone Furoate Mometasone Furoate No Mometasone Furoate Centrum Silver - Centrum Silver - No Centrum Silver - CoQ-10 CoQ-10 No CoQ-10 Vitamin K1 Vitamin K1 No Vitamin K1 Vitamin K1 Vitamin K1 No Vitamin K1 Fish Oil Fish Oil No Fish Oil CoQ-10 CoQ-10 No CoQ-10 Spironolact one Spironolact one No Spironolac tone Furosemide Furosemide No Furosemide Trospium Chloride 20 MG Trospium Chloride 20 MG No Trospium Chloride 20 MG Aspirin 81 81 MG Aspirin 81 81 MG No 1{table t} QD Aspirin 81 81 MG Magnesium 400 MG Magnesium 400 MG No Magnesium 400 MG Vitamin C 500 MG Vitamin C 500 MG No Vitamin C 500 MG Gabapentin 300 MG Gabapentin 300 MG No 1{capsu le} QD Gabapentin 300 MG Lipitor 40 MG Lipitor 40 MG No 1{table t} QD Lipitor 40 MG Metoprolol Succinate ER 25 MG Metoprolol Succinate ER 25 MG No 1{table t} BID Metoprolol Succinate ER 25 MG Centrum Silver - Centrum Silver - No Centrum Silver - Vitamin D Vitamin D No Vitamin D Vitamin B 12 Vitamin B 12 No Vitamin B 12 Colace 100 MG Colace 100 MG No 1{capsu le_as_n eeded} QD Colace 100 MG Vitamin K1 Vitamin K1 No Vitamin K1 Fish Oil Fish Oil No Fish Oil CoQ-10 CoQ-10 No CoQ-10 Spironolact one Spironolact one No Spironolac tone Furosemide Furosemide No Furosemide Trospium Chloride 20 MG Trospium Chloride 20 MG No Trospium Chloride 20 MG Aspirin 81 81 MG Aspirin 81 81 MG No 1{table t} QD Aspirin 81 81 MG Magnesium 400 MG Magnesium 400 MG No Magnesium 400 MG Vitamin C 500 MG Vitamin C 500 MG No Vitamin C 500 MG Gabapentin 300 MG Gabapentin 300 MG No 1{capsu le} QD Gabapentin 300 MG Lipitor 40 MG Lipitor 40 MG No 1{table t} QD Lipitor 40 MG Metoprolol Succinate ER 25 MG Metoprolol Succinate ER 25 MG No 1{table t} BID Metoprolol Succinate ER 25 MG Centrum Silver - Centrum Silver - No Centrum Silver - Vitamin D Vitamin D No Vitamin D Vitamin B 12 Vitamin B 12 No Vitamin B 12 Colace 100 MG Colace 100 MG No 1{capsu le_as_n eeded} QD Colace 100 MG Vitamin K1 Vitamin K1 No Vitamin K1 Fish Oil Fish Oil No Fish Oil CoQ-10 CoQ-10 No CoQ-10 Spironolact one Spironolact one No Spironolac tone Furosemide Furosemide No Furosemide Trospium Chloride 20 MG Trospium Chloride 20 MG No Trospium Chloride 20 MG Aspirin 81 81 MG Aspirin 81 81 MG No 1{table t} QD Aspirin 81 81 MG Magnesium 400 MG Magnesium 400 MG No Magnesium 400 MG Vitamin C 500 MG Vitamin C 500 MG No Vitamin C 500 MG Gabapentin 300 MG Gabapentin 300 MG No 1{capsu le} QD Gabapentin 300 MG Lipitor 40 MG Lipitor 40 MG No 1{table t} QD Lipitor 40 MG Metoprolol Succinate ER 25 MG Metoprolol Succinate ER 25 MG No 1{table t} BID Metoprolol Succinate ER 25 MG Centrum Silver - Centrum Silver - No Centrum Silver - Vitamin D Vitamin D No Vitamin D Vitamin B 12 Vitamin B 12 No Vitamin B 12 Colace 100 MG Colace 100 MG No 1{capsu le_as_n eeded} QD Colace 100 MG Spironolact one Spironolact one No Spironolac tone Vitamin K1 Vitamin K1 No Vitamin K1 Fish Oil Fish Oil No Fish Oil CoQ-10 CoQ-10 No CoQ-10 Spironolact one Spironolact one No Spironolac tone Furosemide Furosemide No Furosemide Trospium Chloride 20 MG Trospium Chloride 20 MG No Trospium Chloride 20 MG Aspirin 81 81 MG Aspirin 81 81 MG No 1{table t} QD Aspirin 81 81 MG Magnesium 400 MG Magnesium 400 MG No Magnesium 400 MG Metoprolol Succinate ER 25 MG Metoprolol Succinate ER 25 MG No 1{table t} QD Metoprolol Succinate ER 25 MG Vitamin C 500 MG Vitamin C 500 MG No Vitamin C 500 MG Gabapentin 300 MG Gabapentin 300 MG No 1{capsu le} QD Gabapentin 300 MG Lipitor 40 MG Lipitor 40 MG No 1{table t} QD Lipitor 40 MG Metoprolol Succinate ER 25 MG Metoprolol Succinate ER 25 MG No 1{table t} BID Metoprolol Succinate ER 25 MG Centrum Silver - Centrum Silver - No Centrum Silver - Vitamin D Vitamin D No Vitamin D Vitamin B 12 Vitamin B 12 No Vitamin B 12 Mometasone Furoate Mometasone Furoate No Mometasone Furoate Colace 100 MG Colace 100 MG No 1{capsu le_as_n eeded} QD Colace 100 MG Centrum Silver - Centrum Silver - No Centrum Silver - Vitamin K1 Vitamin K1 No Vitamin K1 Vitamin K1 Vitamin K1 No Vitamin K1 Fish Oil Fish Oil No Fish Oil CoQ-10 CoQ-10 No CoQ-10 Spironolact one Spironolact one No Spironolac tone Furosemide Furosemide No Furosemide Trospium Chloride 20 MG Trospium Chloride 20 MG No Trospium Chloride 20 MG Aspirin 81 81 MG Aspirin 81 81 MG No 1{table t} QD Aspirin 81 81 MG Magnesium 400 MG Magnesium 400 MG No Magnesium 400 MG Budesonide- Formoterol Fumarate 160-4.5 MCG/ACT Budesonide- Formoterol Fumarate 160-4.5 MCG/ACT No 2{puffs } BID Budesonide -Formotero l Fumarate 160-4.5 MCG/ACT Vitamin C 500 MG Vitamin C 500 MG No Vitamin C 500 MG Gabapentin 300 MG Gabapentin 300 MG No 1{capsu le} QD Gabapentin 300 MG Lipitor 40 MG Lipitor 40 MG No 1{table t} QD Lipitor 40 MG Metoprolol Succinate ER 25 MG Metoprolol Succinate ER 25 MG No 1{table t} BID Metoprolol Succinate ER 25 MG Centrum Silver - Centrum Silver - No Centrum Silver - Vitamin D Vitamin D No Vitamin D Vitamin B 12 Vitamin B 12 No Vitamin B 12 Lipitor 40 MG Lipitor 40 MG No 1{table t} QD Lipitor 40 MG Colace 100 MG Colace 100 MG No 1{capsu le_as_n eeded} QD Colace 100 MG Vitamin B 12 Vitamin B 12 No Vitamin B 12 Nitrofurant oin Monohyd Macro 100 MG Nitrofurant oin Monohyd Macro 100 MG No Nitrofuran toin Monohyd Macro 100 MG Vitamin C 500 MG Vitamin C 500 MG No Vitamin C 500 MG Carvedilol 12.5 MG Carvedilol 12.5 MG No 1{table t_with_ food} BID Carvedilol 12.5 MG Metoprolol Succinate ER 25 MG Metoprolol Succinate ER 25 MG No 1{table t} BID Metoprolol Succinate ER 25 MG Vitamin D Vitamin D No Vitamin D Fish Oil Fish Oil No Fish Oil Colace 100 MG Colace 100 MG No 1{capsu le_as_n eeded} QD Colace 100 MG Gabapentin 300 MG Gabapentin 300 MG No 1{capsu le} QD Gabapentin 300 MG Centrum Silver - Centrum Silver - No Centrum Silver - Furosemide 20 MG Furosemide 20 MG No 1{table t} QD Furosemide 20 MG CoQ-10 CoQ-10 No CoQ-10 Pregabalin Pregabalin No Pregabalin Aspirin 81 81 MG Aspirin 81 81 MG No 1{table t} QD Aspirin 81 81 MG Budesonide (Nasal) Budesonide (Nasal) No Budesonide (Nasal) Vitamin B 12 Vitamin B 12 No Vitamin B 12 Lipitor 40 MG Lipitor 40 MG No 1{table t} QD Lipitor 40 MG Vitamin D Vitamin D No Vitamin D Trospium Chloride 20 MG Trospium Chloride 20 MG No Trospium Chloride 20 MG Spironolact one 25 MG Spironolact one 25 MG No 1{table t} Spironolac tone 25 MG Vitamin K1 Vitamin K1 No Vitamin K1 Magnesium 400 MG Magnesium 400 MG No Magnesium 400 MG Aspirin 81 81 MG Aspirin 81 81 MG No 1{table t} QD Aspirin 81 81 MG atorvastati n atorvastati n No atorvastat in Nitrofurant oin Monohyd Macro 100 MG Nitrofurant oin Monohyd Macro 100 MG No Nitrofuran toin Monohyd Macro 100 MG Vitamin C 500 MG Vitamin C 500 MG No Vitamin C 500 MG Carvedilol 12.5 MG Carvedilol 12.5 MG No 1{table t_with_ food} BID Carvedilol 12.5 MG Metoprolol Succinate ER 25 MG Metoprolol Succinate ER 25 MG No 1{table t} BID Metoprolol Succinate ER 25 MG Fish Oil Fish Oil No Fish Oil Colace 100 MG Colace 100 MG No 1{capsu le_as_n eeded} QD Colace 100 MG Gabapentin 300 MG Gabapentin 300 MG No 1{capsu le} QD Gabapentin 300 MG Centrum Silver - Centrum Silver - No Centrum Silver - Furosemide 20 MG Furosemide 20 MG No 1{table t} QD Furosemide 20 MG Ensure - Ensure - No Ensure - CoQ-10 CoQ-10 No CoQ-10 Pregabalin Pregabalin No Pregabalin Aspirin 81 81 MG Aspirin 81 81 MG No 1{table t} QD Aspirin 81 81 MG Vitamin B 12 Vitamin B 12 No Vitamin B 12 Lipitor 40 MG Lipitor 40 MG No 1{table t} QD Lipitor 40 MG Vitamin D Vitamin D No Vitamin D Trospium Chloride 20 MG Trospium Chloride 20 MG No Trospium Chloride 20 MG Spironolact one 25 MG Spironolact one 25 MG No 1{table t} Spironolac tone 25 MG Vitamin K1 Vitamin K1 No Vitamin K1 Magnesium 400 MG Magnesium 400 MG No Magnesium 400 MG Colace 100 MG Colace 100 MG No 1{capsu le_as_n eeded} QD Colace 100 MG Nitrofurant oin Monohyd Macro 100 MG Nitrofurant oin Monohyd Macro 100 MG No Nitrofuran toin Monohyd Macro 100 MG Vitamin C 500 MG Vitamin C 500 MG No Vitamin C 500 MG Carvedilol 12.5 MG Carvedilol 12.5 MG No 1{table t_with_ food} BID Carvedilol 12.5 MG Metoprolol Succinate ER 25 MG Metoprolol Succinate ER 25 MG No 1{table t} BID Metoprolol Succinate ER 25 MG Vitamin C 500 MG Vitamin C 500 MG No Vitamin C 500 MG Fish Oil Fish Oil No Fish Oil Colace 100 MG Colace 100 MG No 1{capsu le_as_n eeded} QD Colace 100 MG Gabapentin 300 MG Gabapentin 300 MG No 1{capsu le} QD Gabapentin 300 MG Centrum Silver - Centrum Silver - No Centrum Silver - Furosemide 20 MG Furosemide 20 MG No 1{table t} QD Furosemide 20 MG CoQ-10 CoQ-10 No CoQ-10 Pregabalin Pregabalin No Pregabalin Aspirin 81 81 MG Aspirin 81 81 MG No 1{table t} QD Aspirin 81 81 MG Felodipine ER 10 MG Felodipine ER 10 MG No 1{table t} QD Felodipine ER 10 MG Vitamin B 12 Vitamin B 12 No Vitamin B 12 Lipitor 40 MG Lipitor 40 MG No 1{table t} QD Lipitor 40 MG Vitamin D Vitamin D No Vitamin D Trospium Chloride 20 MG Trospium Chloride 20 MG No Trospium Chloride 20 MG Spironolact one 25 MG Spironolact one 25 MG No 1{table t} Spironolac tone 25 MG Vitamin K1 Vitamin K1 No Vitamin K1 CoQ-10 CoQ-10 No CoQ-10 Magnesium 400 MG Magnesium 400 MG No Magnesium 400 MG Magnesium 400 MG Magnesium 400 MG No Magnesium 400 MG Trospium Chloride 20 MG Trospium Chloride 20 MG No Trospium Chloride 20 MG Vitamin C 500 MG Vitamin C 500 MG No Vitamin C 500 MG Nitrofurant oin Monohyd Macro 100 MG Nitrofurant oin Monohyd Macro 100 MG No Nitrofuran toin Monohyd Macro 100 MG Metoprolol Succinate ER 25 MG Metoprolol Succinate ER 25 MG No 1{table t} BID Metoprolol Succinate ER 25 MG Fish Oil Fish Oil No Fish Oil Colace 100 MG Colace 100 MG No 1{capsu le_as_n eeded} QD Colace 100 MG Gabapentin 300 MG Gabapentin 300 MG No 1{capsu le} QD Gabapentin 300 MG Centrum Silver - Centrum Silver - No Centrum Silver - Furosemide 20 MG Furosemide 20 MG No 1{table t} QD Furosemide 20 MG CoQ-10 CoQ-10 No CoQ-10 Pregabalin Pregabalin No Pregabalin Aspirin 81 81 MG Aspirin 81 81 MG No 1{table t} QD Aspirin 81 81 MG Vitamin B 12 Vitamin B 12 No Vitamin B 12 Lipitor 40 MG Lipitor 40 MG No 1{table t} QD Lipitor 40 MG Vitamin D Vitamin D No Vitamin D Carvedilol 12.5 MG Carvedilol 12.5 MG No 1{table t_with_ food} BID Carvedilol 12.5 MG Spironolact one 25 MG Spironolact one 25 MG No 1{table t} Spironolac tone 25 MG Vitamin K1 Vitamin K1 No Vitamin K1 Magnesium 400 MG Magnesium 400 MG No Magnesium 400 MG Trospium Chloride 20 MG Trospium Chloride 20 MG No Trospium Chloride 20 MG Vitamin C 500 MG Vitamin C 500 MG No Vitamin C 500 MG Nitrofurant oin Monohyd Macro 100 MG Nitrofurant oin Monohyd Macro 100 MG No Nitrofuran toin Monohyd Macro 100 MG Metoprolol Succinate ER 25 MG Metoprolol Succinate ER 25 MG No 1{table t} BID Metoprolol Succinate ER 25 MG Fish Oil Fish Oil No Fish Oil Colace 100 MG Colace 100 MG No 1{capsu le_as_n eeded} QD Colace 100 MG Gabapentin 300 MG Gabapentin 300 MG No 1{capsu le} QD Gabapentin 300 MG Centrum Silver - Centrum Silver - No Centrum Silver - Furosemide 20 MG Furosemide 20 MG No 1{table t} QD Furosemide 20 MG CoQ-10 CoQ-10 No CoQ-10 Pregabalin Pregabalin No Pregabalin Aspirin 81 81 MG Aspirin 81 81 MG No 1{table t} QD Aspirin 81 81 MG Vitamin B 12 Vitamin B 12 No Vitamin B 12 Lipitor 40 MG Lipitor 40 MG No 1{table t} QD Lipitor 40 MG Vitamin D Vitamin D No Vitamin D Carvedilol 12.5 MG Carvedilol 12.5 MG No 1{table t_with_ food} BID Carvedilol 12.5 MG Spironolact one 25 MG Spironolact one 25 MG No 1{table t} Spironolac tone 25 MG Vitamin K1 Vitamin K1 No Vitamin K1 Magnesium 400 MG Magnesium 400 MG No Magnesium 400 MG Trospium Chloride 20 MG Trospium Chloride 20 MG No Trospium Chloride 20 MG Vitamin C 500 MG Vitamin C 500 MG No Vitamin C 500 MG Nitrofurant oin Monohyd Macro 100 MG Nitrofurant oin Monohyd Macro 100 MG No Nitrofuran toin Monohyd Macro 100 MG Metoprolol Succinate ER 25 MG Metoprolol Succinate ER 25 MG No 1{table t} BID Metoprolol Succinate ER 25 MG Fish Oil Fish Oil No Fish Oil Colace 100 MG Colace 100 MG No 1{capsu le_as_n eeded} QD Colace 100 MG Gabapentin 300 MG Gabapentin 300 MG No 1{capsu le} QD Gabapentin 300 MG Centrum Silver - Centrum Silver - No Centrum Silver - Furosemide 20 MG Furosemide 20 MG No 1{table t} QD Furosemide 20 MG CoQ-10 CoQ-10 No CoQ-10 Pregabalin Pregabalin No Pregabalin Aspirin 81 81 MG Aspirin 81 81 MG No 1{table t} QD Aspirin 81 81 MG Vitamin B 12 Vitamin B 12 No Vitamin B 12 Lipitor 40 MG Lipitor 40 MG No 1{table t} QD Lipitor 40 MG Vitamin D Vitamin D No Vitamin D Carvedilol 12.5 MG Carvedilol 12.5 MG No 1{table t_with_ food} BID Carvedilol 12.5 MG Spironolact one 25 MG Spironolact one 25 MG No 1{table t} Spironolac tone 25 MG Vitamin K1 Vitamin K1 No Vitamin K1 Magnesium 400 MG Magnesium 400 MG No Magnesium 400 MG Trospium Chloride 20 MG Trospium Chloride 20 MG No Trospium Chloride 20 MG Vitamin C 500 MG Vitamin C 500 MG No Vitamin C 500 MG Nitrofurant oin Monohyd Macro 100 MG Nitrofurant oin Monohyd Macro 100 MG No Nitrofuran toin Monohyd Macro 100 MG Metoprolol Succinate ER 25 MG Metoprolol Succinate ER 25 MG No 1{table t} BID Metoprolol Succinate ER 25 MG Fish Oil Fish Oil No Fish Oil Colace 100 MG Colace 100 MG No 1{capsu le_as_n eeded} QD Colace 100 MG Gabapentin 300 MG Gabapentin 300 MG No 1{capsu le} QD Gabapentin 300 MG Centrum Silver - Centrum Silver - No Centrum Silver - Furosemide 20 MG Furosemide 20 MG No 1{table t} QD Furosemide 20 MG CoQ-10 CoQ-10 No CoQ-10 Pregabalin Pregabalin No Pregabalin Aspirin 81 81 MG Aspirin 81 81 MG No 1{table t} QD Aspirin 81 81 MG Vitamin B 12 Vitamin B 12 No Vitamin B 12 Lipitor 40 MG Lipitor 40 MG No 1{table t} QD Lipitor 40 MG Vitamin D Vitamin D No Vitamin D Carvedilol 12.5 MG Carvedilol 12.5 MG No 1{table t_with_ food} BID Carvedilol 12.5 MG Spironolact one 25 MG Spironolact one 25 MG No 1{table t} Spironolac tone 25 MG Vitamin K1 Vitamin K1 No Vitamin K1 Magnesium 400 MG Magnesium 400 MG No Magnesium 400 MG Colace 100 MG Colace 100 MG No 1{capsu le_as_n eeded} QD Colace 100 MG atorvastati n atorvastati n No atorvastat in Vitamin B 12 Vitamin B 12 No Vitamin B 12 Furosemide 20 MG Furosemide 20 MG No 1{table t} QD Furosemide 20 MG Colace 100 MG Colace 100 MG No 1{capsu le_as_n eeded} QD Colace 100 MG Lipitor 40 MG Lipitor 40 MG No 1{table t} QD Lipitor 40 MG Spironolact one 25 MG Spironolact one 25 MG No 1{table t} Spironolac tone 25 MG Aspirin 81 81 MG Aspirin 81 81 MG No 1{table t} QD Aspirin 81 81 MG Vitamin C 500 MG Vitamin C 500 MG No Vitamin C 500 MG Pregabalin Pregabalin No Pregabalin Trospium Chloride 20 MG Trospium Chloride 20 MG No 1{table t_at_be dtime_o n_an_em pty_sto mach} QD Trospium Chloride 20 MG Centrum Silver - Centrum Silver - No Centrum Silver - CoQ-10 CoQ-10 No CoQ-10 Magnesium 400 MG Magnesium 400 MG No Magnesium 400 MG Carvedilol 12.5 MG Carvedilol 12.5 MG No 1{table t_with_ food} BID Carvedilol 12.5 MG Mometasone Furoate Mometasone Furoate No Mometasone Furoate Centrum Silver - Centrum Silver - No Centrum Silver - Vitamin B 12 Vitamin B 12 No Vitamin B 12 Furosemide 20 MG Furosemide 20 MG No 1{table t} QD Furosemide 20 MG Colace 100 MG Colace 100 MG No 1{capsu le_as_n eeded} QD Colace 100 MG Lipitor 40 MG Lipitor 40 MG No 1{table t} QD Lipitor 40 MG Spironolact one 25 MG Spironolact one 25 MG No 1{table t} Spironolac tone 25 MG Aspirin 81 81 MG Aspirin 81 81 MG No 1{table t} QD Aspirin 81 81 MG Lipitor 40 MG Lipitor 40 MG No 1{table t} QD Lipitor 40 MG Vitamin C 500 MG Vitamin C 500 MG No Vitamin C 500 MG Pregabalin Pregabalin No Pregabalin Trospium Chloride 20 MG Trospium Chloride 20 MG No 1{table t_at_be dtime_o n_an_em pty_sto mach} QD Trospium Chloride 20 MG Centrum Silver - Centrum Silver - No Centrum Silver - CoQ-10 CoQ-10 No CoQ-10 Magnesium 400 MG Magnesium 400 MG No Magnesium 400 MG Carvedilol 12.5 MG Carvedilol 12.5 MG No 1{table t_with_ food} BID Carvedilol 12.5 MG Ensure - Ensure - No Ensure - Magnesium 400 MG Magnesium 400 MG No Magnesium 400 MG Pregabalin Pregabalin No Pregabalin Vitamin B 12 Vitamin B 12 No Vitamin B 12 CoQ-10 CoQ-10 No CoQ-10 Furosemide 20 MG Furosemide 20 MG No 1{table t} QD Furosemide 20 MG Carvedilol 12.5 MG Carvedilol 12.5 MG No 1{table t_with_ food} BID Carvedilol 12.5 MG Spironolact one 25 MG Spironolact one 25 MG No 1{table t} Spironolac tone 25 MG Aspirin 81 81 MG Aspirin 81 81 MG No 1{table t} QD Aspirin 81 81 MG Vitamin C 500 MG Vitamin C 500 MG No Vitamin C 500 MG Lipitor 40 MG Lipitor 40 MG No 1{table t} QD Lipitor 40 MG Budesonide- Formoterol Fumarate 160-4.5 MCG/ACT Budesonide- Formoterol Fumarate 160-4.5 MCG/ACT No 2{puffs } BID Budesonide -Formotero l Fumarate 160-4.5 MCG/ACT Centrum Silver - Centrum Silver - No Centrum Silver - Trospium Chloride 20 MG Trospium Chloride 20 MG No 1{table t_at_be dtime_o n_an_em pty_sto mach} QD Trospium Chloride 20 MG Colace 100 MG Colace 100 MG No 1{capsu le_as_n eeded} QD Colace 100 MG Fish Oil Fish Oil No Fish Oil Magnesium 400 MG Magnesium 400 MG No Magnesium 400 MG Pregabalin Pregabalin No Pregabalin Vitamin B 12 Vitamin B 12 No Vitamin B 12 CoQ-10 CoQ-10 No CoQ-10 Furosemide 20 MG Furosemide 20 MG No 1{table t} QD Furosemide 20 MG Carvedilol 12.5 MG Carvedilol 12.5 MG No 1{table t_with_ food} BID Carvedilol 12.5 MG Spironolact one 25 MG Spironolact one 25 MG No 1{table t} Spironolac tone 25 MG Aspirin 81 81 MG Aspirin 81 81 MG No 1{table t} QD Aspirin 81 81 MG Vitamin C 500 MG Vitamin C 500 MG No Vitamin C 500 MG Lipitor 40 MG Lipitor 40 MG No 1{table t} QD Lipitor 40 MG Centrum Silver - Centrum Silver - No Centrum Silver - Vitamin K1 Vitamin K1 No Vitamin K1 Trospium Chloride 20 MG Trospium Chloride 20 MG No 1{table t_at_be dtime_o n_an_em pty_sto mach} QD Trospium Chloride 20 MG Colace 100 MG Colace 100 MG No 1{capsu le_as_n eeded} QD Colace 100 MG Aspirin 81 81 MG Aspirin 81 81 MG No 1{table t} QD Aspirin 81 81 MG Magnesium 400 MG Magnesium 400 MG No Magnesium 400 MG Pregabalin Pregabalin No Pregabalin Vitamin B 12 Vitamin B 12 No Vitamin B 12 Vitamin B 12 Vitamin B 12 No Vitamin B 12 CoQ-10 CoQ-10 No CoQ-10 Furosemide 20 MG Furosemide 20 MG No 1{table t} QD Furosemide 20 MG Carvedilol 12.5 MG Carvedilol 12.5 MG No 1{table t_with_ food} BID Carvedilol 12.5 MG Spironolact one 25 MG Spironolact one 25 MG No 1{table t} Spironolac tone 25 MG Aspirin 81 81 MG Aspirin 81 81 MG No 1{table t} QD Aspirin 81 81 MG Vitamin C 500 MG Vitamin C 500 MG No Vitamin C 500 MG Lipitor 40 MG Lipitor 40 MG No 1{table t} QD Lipitor 40 MG Magnesium 400 MG Magnesium 400 MG No Magnesium 400 MG Centrum Silver - Centrum Silver - No Centrum Silver - Trospium Chloride 20 MG Trospium Chloride 20 MG No 1{table t_at_be dtime_o n_an_em pty_sto mach} QD Trospium Chloride 20 MG Colace 100 MG Colace 100 MG No 1{capsu le_as_n eeded} QD Colace 100 MG Furosemide Furosemide No Furosemide Felodipine ER 10 MG Felodipine ER 10 MG No 1{table t} QD Felodipine ER 10 MG Spironolact one Spironolact one No Spironolac tone Vitamin D Vitamin D No Vitamin D Vitamin C 500 MG Vitamin C 500 MG No Vitamin C 500 MG Budesonide (Nasal) Budesonide (Nasal) No Budesonide (Nasal) Klor-Con Klor-Con No Klor-Con Metoprolol Succinate ER 25 MG Metoprolol Succinate ER 25 MG No 1{table t} QD Metoprolol Succinate ER 25 MG CoQ-10 CoQ-10 No CoQ-10 Immunizations Ordered Immunization Name Filled Immunization Name Date Status Comments Source SARS-COV-2 COVID-19 PFIZER VACCINE 2020-10-10 00:00:00 Completed [facility] SARS-COV-2 COVID-19 PFIZER VACCINE 2020-10-10 00:00:00 Completed [facility] SARS-COV-2 COVID-19 PFIZER VACCINE 2020-10-10 00:00:00 Completed [facility] SARS-COV-2 COVID-19 PFIZER VACCINE 2020-10-10 00:00:00 Completed [facility] SARS-COV-2 COVID-19 PFIZER VACCINE 2020-10-10 00:00:00 Completed [facility] SARS-COV-2 COVID-19 PFIZER VACCINE 2020-10-10 00:00:00 Completed [facility] SARS-COV-2 COVID-19 PFIZER VACCINE 2020-10-10 00:00:00 Completed [facility] SARS-COV-2 COVID-19 PFIZER VACCINE 2020-10-10 00:00:00 Completed [facility] SARS-COV-2 COVID-19 PFIZER VACCINE 2020-10-10 00:00:00 Completed [facility] SARS-COV-2 COVID-19 PFIZER VACCINE 2020-10-10 00:00:00 Completed [facility] SARS-COV-2 COVID-19 PFIZER VACCINE 2020-10-10 00:00:00 Completed [facility] SARS-COV-2 COVID-19 PFIZER VACCINE 2020-10-10 00:00:00 Completed [facility] SARS-COV-2 COVID-19 PFIZER VACCINE 2020-10-10 00:00:00 Completed [facility] SARS-COV-2 COVID-19 PFIZER VACCINE 2020-10-10 00:00:00 Completed [facility] SARS-COV-2 COVID-19 PFIZER VACCINE 2020-10-10 00:00:00 Completed [facility] SARS-COV-2 COVID-19 PFIZER VACCINE 2020-10-10 00:00:00 Completed [facility] SARS-COV-2 COVID-19 PFIZER VACCINE 2020-10-10 00:00:00 Completed [facility] SARS-COV-2 COVID-19 PFIZER VACCINE 2020-10-10 00:00:00 Completed [facility] SARS-COV-2 COVID-19 PFIZER VACCINE 2020-10-10 00:00:00 Completed [facility] SARS-COV-2 COVID-19 PFIZER VACCINE 2020-10-10 00:00:00 Completed [facility] SARS-COV-2 COVID-19 PFIZER VACCINE 2020-10-10 00:00:00 Completed [facility] SARS-COV-2 COVID-19 PFIZER VACCINE 2020-10-10 00:00:00 Completed [facility] SARS-COV-2 COVID-19 PFIZER VACCINE 2020-10-10 00:00:00 Completed [facility] SARS-COV-2 COVID-19 PFIZER VACCINE 2020-10-10 00:00:00 Completed [facility] SARS-COV-2 COVID-19 PFIZER VACCINE 2020-10-10 00:00:00 Completed [facility] SARS-COV-2 COVID-19 PFIZER VACCINE 2020-10-10 00:00:00 Completed [facility] SARS-COV-2 COVID-19 PFIZER VACCINE 2020-10-10 00:00:00 Completed [facility] SARS-COV-2 COVID-19 PFIZER VACCINE 2020-10-10 00:00:00 Completed [facility] SARS-COV-2 COVID-19 PFIZER VACCINE 2020-10-10 00:00:00 Completed [facility] SARS-COV-2 COVID-19 PFIZER VACCINE 2020-10-10 00:00:00 Completed [facility] SARS-COV-2 COVID-19 PFIZER VACCINE 2020-10-10 00:00:00 Completed [facility] SARS-COV-2 COVID-19 PFIZER VACCINE 2020-10-10 00:00:00 Completed [facility] SARS-COV-2 COVID-19 PFIZER VACCINE 2020-10-10 00:00:00 Completed [facility] SARS-COV-2 COVID-19 PFIZER VACCINE 2020-10-10 00:00:00 Completed [facility] SARS-COV-2 COVID-19 PFIZER VACCINE 2020-10-10 00:00:00 Completed [facility] SARS-COV-2 COVID-19 PFIZER VACCINE 2020-10-10 00:00:00 Completed [facility] SARS-COV-2 COVID-19 PFIZER VACCINE 2020-10-10 00:00:00 Completed [facility] SARS-COV-2 COVID-19 PFIZER VACCINE 2020-10-10 00:00:00 Completed [facility] SARS-COV-2 COVID-19 PFIZER VACCINE 2020-10-10 00:00:00 Completed [facility] SARS-COV-2 COVID-19 PFIZER VACCINE 2020-10-10 00:00:00 Completed [facility] SARS-COV-2 COVID-19 PFIZER VACCINE 2020-10-10 00:00:00 Completed [facility] SARS-COV-2 COVID-19 PFIZER VACCINE 2020-10-10 00:00:00 Completed [facility] SARS-COV-2 COVID-19 PFIZER VACCINE 2020-10-10 00:00:00 Completed [facility] SARS-COV-2 COVID-19 PFIZER VACCINE 2020-10-10 00:00:00 Completed [facility] SARS-COV-2 COVID-19 PFIZER VACCINE 2020-10-10 00:00:00 Completed [facility] SARS-COV-2 COVID-19 PFIZER VACCINE 2020-10-10 00:00:00 Completed [facility] SARS-COV-2 COVID-19 PFIZER VACCINE 2020-10-10 00:00:00 Completed [facility] SARS-COV-2 COVID-19 PFIZER VACCINE 2020-10-10 00:00:00 Completed [facility] SARS-COV-2 COVID-19 PFIZER VACCINE 2020-10-10 00:00:00 Completed [facility] SARS-COV-2 COVID-19 PFIZER VACCINE 2020-10-10 00:00:00 Completed [facility] SARS-COV-2 COVID-19 PFIZER VACCINE 2020-10-10 00:00:00 Completed [facility] SARS-COV-2 COVID-19 PFIZER VACCINE 2020-10-10 00:00:00 Completed [facility] SARS-COV-2 COVID-19 PFIZER VACCINE 2020-10-10 00:00:00 Completed [facility] SARS-COV-2 COVID-19 PFIZER VACCINE 2020-10-10 00:00:00 Completed [facility] SARS-COV-2 COVID-19 PFIZER VACCINE 2020-10-10 00:00:00 Completed [facility] SARS-COV-2 COVID-19 PFIZER VACCINE 2020-10-10 00:00:00 Completed [facility] SARS-COV-2 COVID-19 PFIZER VACCINE 2020-10-10 00:00:00 Completed [facility] SARS-COV-2 COVID-19 PFIZER VACCINE 2020-10-10 00:00:00 Completed [facility] SARS-COV-2 COVID-19 PFIZER VACCINE 2020-10-10 00:00:00 Completed [facility] SARS-COV-2 COVID-19 PFIZER VACCINE 2020-10-10 00:00:00 Completed [facility] SARS-COV-2 COVID-19 PFIZER VACCINE 2020-10-10 00:00:00 Completed [facility] SARS-COV-2 COVID-19 PFIZER VACCINE 2020-10-10 00:00:00 Completed [facility] SARS-COV-2 COVID-19 PFIZER VACCINE 2020-10-10 00:00:00 Completed [facility] SARS-COV-2 COVID-19 PFIZER VACCINE 2020-10-10 00:00:00 Completed [facility] SARS-COV-2 COVID-19 PFIZER VACCINE 2020-10-10 00:00:00 Completed [facility] SARS-COV-2 COVID-19 PFIZER VACCINE 2020-10-10 00:00:00 Completed [facility] SARS-COV-2 COVID-19 PFIZER VACCINE 2020-10-10 00:00:00 Completed [facility] SARS-COV-2 COVID-19 PFIZER VACCINE 2020-10-10 00:00:00 Completed [facility] SARS-COV-2 COVID-19 PFIZER VACCINE 2020-10-10 00:00:00 Completed [facility] SARS-COV-2 COVID-19 PFIZER VACCINE 2020-10-10 00:00:00 Completed [facility] SARS-COV-2 COVID-19 PFIZER VACCINE 2020-10-10 00:00:00 Completed [facility] SARS-COV-2 COVID-19 PFIZER VACCINE 2020-10-10 00:00:00 Completed [facility] SARS-COV-2 COVID-19 PFIZER VACCINE 2020-10-10 00:00:00 Completed [facility] SARS-COV-2 COVID-19 PFIZER VACCINE 2020-10-10 00:00:00 Completed [facility] SARS-COV-2 COVID-19 PFIZER VACCINE 2020-10-10 00:00:00 Completed [facility] SARS-COV-2 COVID-19 PFIZER VACCINE 2020-10-10 00:00:00 Completed [facility] SARS-COV-2 COVID-19 PFIZER VACCINE 2020-10-10 00:00:00 Completed [facility] SARS-COV-2 COVID-19 PFIZER VACCINE 2020-10-10 00:00:00 Completed [facility] SARS-COV-2 COVID-19 PFIZER VACCINE 2020-10-10 00:00:00 Completed [facility] SARS-COV-2 COVID-19 PFIZER VACCINE 2020-10-10 00:00:00 Completed [facility] SARS-COV-2 COVID-19 PFIZER VACCINE 2020-10-10 00:00:00 Completed [facility] SARS-COV-2 COVID-19 PFIZER VACCINE 2020-10-10 00:00:00 Completed [facility] SARS-COV-2 COVID-19 PFIZER VACCINE 2020-10-10 00:00:00 Completed [facility] SARS-COV-2 COVID-19 PFIZER VACCINE 2020-10-10 00:00:00 Completed [facility] SARS-COV-2 COVID-19 PFIZER VACCINE 2020-10-10 00:00:00 Completed [facility] SARS-COV-2 COVID-19 PFIZER VACCINE 2020-10-10 00:00:00 Completed [facility] SARS-COV-2 COVID-19 PFIZER VACCINE 2020-10-10 00:00:00 Completed [facility] SARS-COV-2 COVID-19 PFIZER VACCINE 2020-10-10 00:00:00 Completed [facility] SARS-COV-2 COVID-19 PFIZER VACCINE 2020-10-10 00:00:00 Completed [facility] SARS-COV-2 COVID-19 PFIZER VACCINE 2020-10-10 00:00:00 Completed [facility] SARS-COV-2 COVID-19 PFIZER VACCINE 2020-10-10 00:00:00 Completed [facility] SARS-COV-2 COVID-19 PFIZER VACCINE 2020-10-10 00:00:00 Completed [facility] SARS-COV-2 COVID-19 PFIZER VACCINE 2020-10-10 00:00:00 Completed [facility] SARS-COV-2 COVID-19 PFIZER VACCINE 2020-10-10 00:00:00 Completed [facility] SARS-COV-2 COVID-19 PFIZER VACCINE 2020-10-10 00:00:00 Completed [facility] SARS-COV-2 COVID-19 PFIZER VACCINE 2020-10-10 00:00:00 Completed [facility] SARS-COV-2 COVID-19 PFIZER VACCINE 2020-10-10 00:00:00 Completed [facility] SARS-COV-2 COVID-19 PFIZER VACCINE 2020-10-10 00:00:00 Completed [facility] SARS-COV-2 COVID-19 PFIZER VACCINE 2020-10-10 00:00:00 Completed [facility] SARS-COV-2 COVID-19 PFIZER VACCINE 2020-10-10 00:00:00 Completed [facility] SARS-COV-2 COVID-19 PFIZER VACCINE 2020-10-10 00:00:00 Completed [facility] SARS-COV-2 COVID-19 PFIZER VACCINE 2020-10-10 00:00:00 [place] [facility] SARS-COV-2 COVID-19 PFIZER VACCINE 2020-10-10 00:00:00 Completed [facility] SARS-COV-2 COVID-19 PFIZER VACCINE 2020-10-10 00:00:00 Completed [facility] SARS-COV-2 COVID-19 PFIZER VACCINE 2020-10-10 00:00:00 Completed [facility] SARS-COV-2 COVID-19 PFIZER VACCINE 2020-10-10 00:00:00 Completed [facility] SARS-COV-2 COVID-19 PFIZER VACCINE 2020-10-10 00:00:00 Completed [facility] SARS-COV-2 COVID-19 PFIZER VACCINE 2020-10-10 00:00:00 Completed [facility] SARS-COV-2 COVID-19 PFIZER VACCINE 2020-10-10 00:00:00 Completed [facility] SARS-COV-2 COVID-19 PFIZER VACCINE 2020-10-10 00:00:00 Completed [facility] SARS-COV-2 COVID-19 PFIZER VACCINE 2020-10-10 00:00:00 Completed [facility] SARS-COV-2 COVID-19 PFIZER VACCINE 2020-10-10 00:00:00 Completed [facility] SARS-COV-2 COVID-19 PFIZER VACCINE 2020-10-10 00:00:00 Completed [facility] SARS-COV-2 COVID-19 PFIZER VACCINE 2020-10-10 00:00:00 Completed [facility] SARS-COV-2 COVID-19 PFIZER VACCINE 2020-10-10 00:00:00 Completed [facility] SARS-COV-2 COVID-19 PFIZER VACCINE 2020-10-10 00:00:00 Completed [facility] SARS-COV-2 COVID-19 PFIZER VACCINE 2020-10-10 00:00:00 Completed [facility] SARS-COV-2 COVID-19 PFIZER VACCINE 2020-10-10 00:00:00 Completed [facility] SARS-COV-2 COVID-19 PFIZER VACCINE 2020-10-10 00:00:00 Completed [facility] SARS-COV-2 COVID-19 PFIZER VACCINE 2020-10-10 00:00:00 Completed [facility] SARS-COV-2 COVID-19 PFIZER VACCINE 2020-10-10 00:00:00 Completed [facility] SARS-COV-2 COVID-19 PFIZER VACCINE 2020-10-10 00:00:00 Completed [facility] SARS-COV-2 COVID-19 PFIZER VACCINE 2020-10-10 00:00:00 Completed [facility] SARS-COV-2 COVID-19 PFIZER VACCINE 2020-10-10 00:00:00 Completed [facility] SARS-COV-2 COVID-19 PFIZER VACCINE 2020-09-19 00:00:00 Completed [facility] SARS-COV-2 COVID-19 PFIZER VACCINE 2020-09-19 00:00:00 Completed [facility] SARS-COV-2 COVID-19 PFIZER VACCINE 2020-09-19 00:00:00 Completed [facility] SARS-COV-2 COVID-19 PFIZER VACCINE 2020-09-19 00:00:00 Completed [facility] SARS-COV-2 COVID-19 PFIZER VACCINE 2020-09-19 00:00:00 Completed [facility] SARS-COV-2 COVID-19 PFIZER VACCINE 2020-09-19 00:00:00 Completed [facility] SARS-COV-2 COVID-19 PFIZER VACCINE 2020-09-19 00:00:00 Completed [facility] SARS-COV-2 COVID-19 PFIZER VACCINE 2020-09-19 00:00:00 Completed [facility] SARS-COV-2 COVID-19 PFIZER VACCINE 2020-09-19 00:00:00 Completed [facility] SARS-COV-2 COVID-19 PFIZER VACCINE 2020-09-19 00:00:00 Completed [facility] SARS-COV-2 COVID-19 PFIZER VACCINE 2020-09-19 00:00:00 Completed [facility] SARS-COV-2 COVID-19 PFIZER VACCINE 2020-09-19 00:00:00 Completed [facility] SARS-COV-2 COVID-19 PFIZER VACCINE 2020-09-19 00:00:00 Completed [facility] SARS-COV-2 COVID-19 PFIZER VACCINE 2020-09-19 00:00:00 Completed [facility] SARS-COV-2 COVID-19 PFIZER VACCINE 2020-09-19 00:00:00 Completed [facility] SARS-COV-2 COVID-19 PFIZER VACCINE 2020-09-19 00:00:00 Completed [facility] SARS-COV-2 COVID-19 PFIZER VACCINE 2020-09-19 00:00:00 Completed [facility] SARS-COV-2 COVID-19 PFIZER VACCINE 2020-09-19 00:00:00 Completed [facility] SARS-COV-2 COVID-19 PFIZER VACCINE 2020-09-19 00:00:00 Completed [facility] SARS-COV-2 COVID-19 PFIZER VACCINE 2020-09-19 00:00:00 Completed [facility] SARS-COV-2 COVID-19 PFIZER VACCINE 2020-09-19 00:00:00 Completed [facility] SARS-COV-2 COVID-19 PFIZER VACCINE 2020-09-19 00:00:00 Completed [facility] SARS-COV-2 COVID-19 PFIZER VACCINE 2020-09-19 00:00:00 Completed [facility] SARS-COV-2 COVID-19 PFIZER VACCINE 2020-09-19 00:00:00 Completed [facility] SARS-COV-2 COVID-19 PFIZER VACCINE 2020-09-19 00:00:00 Completed [facility] SARS-COV-2 COVID-19 PFIZER VACCINE 2020-09-19 00:00:00 Completed [facility] SARS-COV-2 COVID-19 PFIZER VACCINE 2020-09-19 00:00:00 Completed [facility] SARS-COV-2 COVID-19 PFIZER VACCINE 2020-09-19 00:00:00 Completed [facility] SARS-COV-2 COVID-19 PFIZER VACCINE 2020-09-19 00:00:00 Completed [facility] SARS-COV-2 COVID-19 PFIZER VACCINE 2020-09-19 00:00:00 Completed [facility] SARS-COV-2 COVID-19 PFIZER VACCINE 2020-09-19 00:00:00 Completed [facility] SARS-COV-2 COVID-19 PFIZER VACCINE 2020-09-19 00:00:00 Completed [facility] SARS-COV-2 COVID-19 PFIZER VACCINE 2020-09-19 00:00:00 Completed [facility] SARS-COV-2 COVID-19 PFIZER VACCINE 2020-09-19 00:00:00 Completed [facility] SARS-COV-2 COVID-19 PFIZER VACCINE 2020-09-19 00:00:00 Completed [facility] SARS-COV-2 COVID-19 PFIZER VACCINE 2020-09-19 00:00:00 Completed [facility] SARS-COV-2 COVID-19 PFIZER VACCINE 2020-09-19 00:00:00 Completed [facility] SARS-COV-2 COVID-19 PFIZER VACCINE 2020-09-19 00:00:00 Completed [facility] SARS-COV-2 COVID-19 PFIZER VACCINE 2020-09-19 00:00:00 Completed [facility] SARS-COV-2 COVID-19 PFIZER VACCINE 2020-09-19 00:00:00 Completed [facility] SARS-COV-2 COVID-19 PFIZER VACCINE 2020-09-19 00:00:00 Completed [facility] SARS-COV-2 COVID-19 PFIZER VACCINE 2020-09-19 00:00:00 Completed [facility] SARS-COV-2 COVID-19 PFIZER VACCINE 2020-09-19 00:00:00 Completed [facility] SARS-COV-2 COVID-19 PFIZER VACCINE 2020-09-19 00:00:00 Completed [facility] SARS-COV-2 COVID-19 PFIZER VACCINE 2020-09-19 00:00:00 Completed [facility] SARS-COV-2 COVID-19 PFIZER VACCINE 2020-09-19 00:00:00 Completed [facility] SARS-COV-2 COVID-19 PFIZER VACCINE 2020-09-19 00:00:00 Completed [facility] SARS-COV-2 COVID-19 PFIZER VACCINE 2020-09-19 00:00:00 Completed [facility] SARS-COV-2 COVID-19 PFIZER VACCINE 2020-09-19 00:00:00 Completed [facility] SARS-COV-2 COVID-19 PFIZER VACCINE 2020-09-19 00:00:00 Completed [facility] SARS-COV-2 COVID-19 PFIZER VACCINE 2020-09-19 00:00:00 Completed [facility] SARS-COV-2 COVID-19 PFIZER VACCINE 2020-09-19 00:00:00 Completed [facility] SARS-COV-2 COVID-19 PFIZER VACCINE 2020-09-19 00:00:00 Completed [facility] SARS-COV-2 COVID-19 PFIZER VACCINE 2020-09-19 00:00:00 Completed [facility] SARS-COV-2 COVID-19 PFIZER VACCINE 2020-09-19 00:00:00 Completed [facility] SARS-COV-2 COVID-19 PFIZER VACCINE 2020-09-19 00:00:00 Completed [facility] SARS-COV-2 COVID-19 PFIZER VACCINE 2020-09-19 00:00:00 Completed [facility] SARS-COV-2 COVID-19 PFIZER VACCINE 2020-09-19 00:00:00 Completed [facility] SARS-COV-2 COVID-19 PFIZER VACCINE 2020-09-19 00:00:00 Completed [facility] SARS-COV-2 COVID-19 PFIZER VACCINE 2020-09-19 00:00:00 Completed [facility] SARS-COV-2 COVID-19 PFIZER VACCINE 2020-09-19 00:00:00 Completed [facility] SARS-COV-2 COVID-19 PFIZER VACCINE 2020-09-19 00:00:00 Completed [facility] SARS-COV-2 COVID-19 PFIZER VACCINE 2020-09-19 00:00:00 Completed [facility] SARS-COV-2 COVID-19 PFIZER VACCINE 2020-09-19 00:00:00 Completed [facility] SARS-COV-2 COVID-19 PFIZER VACCINE 2020-09-19 00:00:00 Completed [facility] SARS-COV-2 COVID-19 PFIZER VACCINE 2020-09-19 00:00:00 Completed [facility] SARS-COV-2 COVID-19 PFIZER VACCINE 2020-09-19 00:00:00 Completed [facility] SARS-COV-2 COVID-19 PFIZER VACCINE 2020-09-19 00:00:00 Completed [facility] SARS-COV-2 COVID-19 PFIZER VACCINE 2020-09-19 00:00:00 Completed [facility] SARS-COV-2 COVID-19 PFIZER VACCINE 2020-09-19 00:00:00 Completed [facility] SARS-COV-2 COVID-19 PFIZER VACCINE 2020-09-19 00:00:00 Completed [facility] SARS-COV-2 COVID-19 PFIZER VACCINE 2020-09-19 00:00:00 Completed [facility] SARS-COV-2 COVID-19 PFIZER VACCINE 2020-09-19 00:00:00 Completed [facility] SARS-COV-2 COVID-19 PFIZER VACCINE 2020-09-19 00:00:00 Completed [facility] SARS-COV-2 COVID-19 PFIZER VACCINE 2020-09-19 00:00:00 Completed [facility] SARS-COV-2 COVID-19 PFIZER VACCINE 2020-09-19 00:00:00 Completed [facility] SARS-COV-2 COVID-19 PFIZER VACCINE 2020-09-19 00:00:00 Completed [facility] SARS-COV-2 COVID-19 PFIZER VACCINE 2020-09-19 00:00:00 Completed [facility] SARS-COV-2 COVID-19 PFIZER VACCINE 2020-09-19 00:00:00 Completed [facility] SARS-COV-2 COVID-19 PFIZER VACCINE 2020-09-19 00:00:00 Completed [facility] SARS-COV-2 COVID-19 PFIZER VACCINE 2020-09-19 00:00:00 Completed [facility] SARS-COV-2 COVID-19 PFIZER VACCINE 2020-09-19 00:00:00 Completed [facility] SARS-COV-2 COVID-19 PFIZER VACCINE 2020-09-19 00:00:00 Completed [facility] SARS-COV-2 COVID-19 PFIZER VACCINE 2020-09-19 00:00:00 Completed [facility] SARS-COV-2 COVID-19 PFIZER VACCINE 2020-09-19 00:00:00 Completed [facility] SARS-COV-2 COVID-19 PFIZER VACCINE 2020-09-19 00:00:00 Completed [facility] SARS-COV-2 COVID-19 PFIZER VACCINE 2020-09-19 00:00:00 Completed [facility] SARS-COV-2 COVID-19 PFIZER VACCINE 2020-09-19 00:00:00 Completed [facility] SARS-COV-2 COVID-19 PFIZER VACCINE 2020-09-19 00:00:00 Completed [facility] SARS-COV-2 COVID-19 PFIZER VACCINE 2020-09-19 00:00:00 Completed [facility] SARS-COV-2 COVID-19 PFIZER VACCINE 2020-09-19 00:00:00 Completed [facility] SARS-COV-2 COVID-19 PFIZER VACCINE 2020-09-19 00:00:00 Completed [facility] SARS-COV-2 COVID-19 PFIZER VACCINE 2020-09-19 00:00:00 Completed [facility] SARS-COV-2 COVID-19 PFIZER VACCINE 2020-09-19 00:00:00 Completed [facility] SARS-COV-2 COVID-19 PFIZER VACCINE 2020-09-19 00:00:00 Completed [facility] SARS-COV-2 COVID-19 PFIZER VACCINE 2020-09-19 00:00:00 Completed [facility] SARS-COV-2 COVID-19 PFIZER VACCINE 2020-09-19 00:00:00 Completed [facility] SARS-COV-2 COVID-19 PFIZER VACCINE 2020-09-19 00:00:00 Completed [facility] SARS-COV-2 COVID-19 PFIZER VACCINE 2020-09-19 00:00:00 Completed [facility] SARS-COV-2 COVID-19 PFIZER VACCINE 2020-09-19 00:00:00 Completed [facility] SARS-COV-2 COVID-19 PFIZER VACCINE 2020-09-19 00:00:00 Completed [facility] SARS-COV-2 COVID-19 PFIZER VACCINE 2020-09-19 00:00:00 Completed [facility] SARS-COV-2 COVID-19 PFIZER VACCINE 2020-09-19 00:00:00 Completed [facility] SARS-COV-2 COVID-19 PFIZER VACCINE 2020-09-19 00:00:00 Completed [facility] SARS-COV-2 COVID-19 PFIZER VACCINE 2020-09-19 00:00:00 Completed [facility] SARS-COV-2 COVID-19 PFIZER VACCINE 2020-09-19 00:00:00 Completed [facility] SARS-COV-2 COVID-19 PFIZER VACCINE 2020-09-19 00:00:00 Completed [facility] SARS-COV-2 COVID-19 PFIZER VACCINE 2020-09-19 00:00:00 Completed [facility] SARS-COV-2 COVID-19 PFIZER VACCINE 2020-09-19 00:00:00 Completed [facility] SARS-COV-2 COVID-19 PFIZER VACCINE 2020-09-19 00:00:00 Completed [facility] SARS-COV-2 COVID-19 PFIZER VACCINE 2020-09-19 00:00:00 Completed [facility] SARS-COV-2 COVID-19 PFIZER VACCINE 2020-09-19 00:00:00 Completed [facility] SARS-COV-2 COVID-19 PFIZER VACCINE 2020-09-19 00:00:00 Completed [facility] SARS-COV-2 COVID-19 PFIZER VACCINE 2020-09-19 00:00:00 Completed [facility] SARS-COV-2 COVID-19 PFIZER VACCINE 2020-09-19 00:00:00 Completed [facility] SARS-COV-2 COVID-19 PFIZER VACCINE 2020-09-19 00:00:00 Completed [facility] SARS-COV-2 COVID-19 PFIZER VACCINE 2020-09-19 00:00:00 Completed [facility] SARS-COV-2 COVID-19 PFIZER VACCINE 2020-09-19 00:00:00 Completed [facility] SARS-COV-2 COVID-19 PFIZER VACCINE 2020-09-19 00:00:00 Completed [facility] SARS-COV-2 COVID-19 PFIZER VACCINE 2020-09-19 00:00:00 Completed [facility] SARS-COV-2 COVID-19 PFIZER VACCINE 2020-09-19 00:00:00 Completed [facility] SARS-COV-2 COVID-19 PFIZER VACCINE 2020-09-19 00:00:00 Completed [facility] SARS-COV-2 COVID-19 PFIZER VACCINE 2020-09-19 00:00:00 Completed [facility] SARS-COV-2 COVID-19 PFIZER VACCINE 2020-09-19 00:00:00 Completed [facility] SARS-COV-2 COVID-19 PFIZER VACCINE Unknown Completed [facility] SARS-COV-2 COVID-19 PFIZER VACCINE Unknown Completed [facility] SARS-COV-2 COVID-19 PFIZER VACCINE Unknown Completed [facility] SARS-COV-2 COVID-19 PFIZER VACCINE Unknown Completed [facility] SARS-COV-2 COVID-19 PFIZER VACCINE Unknown Completed [facility] SARS-COV-2 COVID-19 PFIZER VACCINE Unknown Completed [facility] SARS-COV-2 COVID-19 PFIZER VACCINE Unknown Completed [facility] SARS-COV-2 COVID-19 PFIZER VACCINE Unknown Completed [facility] SARS-COV-2 COVID-19 PFIZER VACCINE Unknown Completed [facility] SARS-COV-2 COVID-19 PFIZER VACCINE Unknown Completed [facility] SARS-COV-2 COVID-19 PFIZER VACCINE Unknown Completed [facility] SARS-COV-2 COVID-19 PFIZER VACCINE Unknown Completed [facility] SARS-COV-2 COVID-19 PFIZER VACCINE Unknown Completed [facility] SARS-COV-2 COVID-19 PFIZER VACCINE Unknown Completed [facility] SARS-COV-2 COVID-19 PFIZER VACCINE Unknown Completed [facility] SARS-COV-2 COVID-19 PFIZER VACCINE Unknown Completed [facility] SARS-COV-2 COVID-19 PFIZER VACCINE Unknown Completed [facility] SARS-COV-2 COVID-19 PFIZER VACCINE Unknown Completed [facility] SARS-COV-2 COVID-19 PFIZER VACCINE Unknown Completed [facility] SARS-COV-2 COVID-19 PFIZER VACCINE Unknown Completed [facility] SARS-COV-2 COVID-19 PFIZER VACCINE Unknown Completed [facility] SARS-COV-2 COVID-19 PFIZER VACCINE Unknown Completed [facility] SARS-COV-2 COVID-19 PFIZER VACCINE Unknown Completed [facility] SARS-COV-2 COVID-19 PFIZER VACCINE Unknown Completed [facility] SARS-COV-2 COVID-19 PFIZER VACCINE Unknown Completed [facility] SARS-COV-2 COVID-19 PFIZER VACCINE Unknown Completed [facility] SARS-COV-2 COVID-19 PFIZER VACCINE Unknown Completed [facility] SARS-COV-2 COVID-19 PFIZER VACCINE Unknown Completed [facility] SARS-COV-2 COVID-19 PFIZER VACCINE Unknown Completed [facility] SARS-COV-2 COVID-19 PFIZER VACCINE Unknown Completed [facility] SARS-COV-2 COVID-19 PFIZER VACCINE Unknown Completed [facility] SARS-COV-2 COVID-19 PFIZER VACCINE Unknown Completed [facility] SARS-COV-2 COVID-19 PFIZER VACCINE Unknown Completed [facility] SARS-COV-2 COVID-19 PFIZER VACCINE Unknown Completed [facility] SARS-COV-2 COVID-19 PFIZER VACCINE Unknown Completed [facility] SARS-COV-2 COVID-19 PFIZER VACCINE Unknown Completed [facility] SARS-COV-2 COVID-19 PFIZER VACCINE Unknown Completed [facility] SARS-COV-2 COVID-19 PFIZER VACCINE Unknown Completed [facility] SARS-COV-2 COVID-19 PFIZER VACCINE Unknown Completed [facility] SARS-COV-2 COVID-19 PFIZER VACCINE Unknown Completed [facility] SARS-COV-2 COVID-19 PFIZER VACCINE Unknown Completed [facility] SARS-COV-2 COVID-19 PFIZER VACCINE Unknown Completed [facility] SARS-COV-2 COVID-19 PFIZER VACCINE Unknown Completed [facility] SARS-COV-2 COVID-19 PFIZER VACCINE Unknown Completed [facility] SARS-COV-2 COVID-19 PFIZER VACCINE Unknown Completed [facility] SARS-COV-2 COVID-19 PFIZER VACCINE Unknown Completed [facility] Vital Signs Vital Name Observation Time Observation Value Comments S ource height 2023-09-14 17:15:00 68 [in_i] Commo n [facility] weight 2023-09-14 17:15:00 226 [lb_av] Comm on [facility] temperature 2023-09-14 17:15:00 98.6 [degF] Com mon [facility] bmi 2023-09-14 17:15:00 34.36 kg/m2 Comm on [facility] oximetry 2023-09-14 17:15:00 99 % Commo n [facility] respiratory rate 2023-09-14 17:15:00 18 /min Common [facility] blood pressure systolic 2023-09-14 17:15:00 136 mm[Hg] [facility] blood pressure diastolic 2023-09-14 17:15:00 86 mm[Hg] [facility] Systolic blood pressure 2023-09-07 17:00:00 139 mm[Hg] [facility] Diastolic blood pressure 2023-09-07 17:00:00 83 mm[Hg] [facility] Heart rate 2023-09-07 16:59:00 82 /min [facility] Respiratory rate 2023-09-07 16:59:00 18 /min [facility] Body height 2023-09-07 16:59:00 170.2 cm [facility] Body weight 2023-09-07 16:59:00 106.55 kg [facility] BMI 2023-09-07 16:59:00 36.79 kg/m2 [facility] Oxygen saturation in Arterial blood by Pulse oximetry 2023-09-07 16:59:00 93 /min [facility] height 2023-09-06 08:45:00 68 [in_i] Commo n [facility] weight 2023-09-06 08:45:00 234.8 [lb_av] Co mmon [facility] temperature 2023-09-06 08:45:00 97.9 [degF] Com mon [facility] bmi 2023-09-06 08:45:00 35.7 kg/m2 Commo n [facility] oximetry 2023-09-06 08:45:00 95 % Commo n [facility] respiratory rate 2023-09-06 08:45:00 18 /min Common [facility] blood pressure systolic 2023-09-06 08:45:00 168 mm[Hg] Common [facility] blood pressure diastolic 2023-09-06 08:45:00 75 mm[Hg] [facility] height 2023-07-31 12:45:00 68 [in_i] Commo n [facility] weight 2023-07-31 12:45:00 238.0 [lb_av] Co mmon [facility] temperature 2023-07-31 12:45:00 97.3 [degF] Com [facility] bmi 2023-07-31 12:45:00 36.18 kg/m2 Comm on [facility] oximetry 2023-07-31 12:45:00 94 % Commo n [facility] respiratory rate 2023-07-31 12:45:00 18 /min [facility] blood pressure systolic 2023-07-31 12:45:00 102 mm[Hg] Common Spiri t [facility] blood pressure diastolic 2023-07-31 12:45:00 60 mm[Hg] Common [facility] height 2023-06-28 08:15:00 68 [in_i] Commo n [facility] weight 2023-06-28 08:15:00 239 [lb_av] Comm on [facility] temperature 2023-06-28 08:15:00 97.2 [degF] Com [facility] bmi 2023-06-28 08:15:00 36.34 kg/m2 Comm on [facility] oximetry 2023-06-28 08:15:00 99 % Commo n [facility] respiratory rate 2023-06-28 08:15:00 18 /min [facility] blood pressure systolic 2023-06-28 08:15:00 140 mm[Hg] [facility] blood pressure diastolic 2023-06-28 08:15:00 68 mm[Hg] [facility] Systolic blood pressure 2023-06-08 21:13:00 156 mm[Hg] [facility] Diastolic blood pressure 2023-06-08 21:13:00 85 mm[Hg] [facility] Heart rate 2023-06-08 21:13:00 59 /min [facility] Body height 2023-06-08 21:13:00 170.2 cm [facility] Body weight 2023-06-08 21:13:00 108.092 kg [facility] BMI 2023-06-08 21:13:00 37.32 kg/m2 [facility] Oxygen saturation in Arterial blood by Pulse oximetry 2023-06-08 21:13:00 96 /min [facility] height 2023-03-30 13:15:00 68 [in_i] Commo n [facility] weight 2023-03-30 13:15:00 231 [lb_av] Comm on [facility] temperature 2023-03-30 13:15:00 97.2 [degF] Com mon [facility] bmi 2023-03-30 13:15:00 35.12 kg/m2 Comm on [facility] oximetry 2023-03-30 13:15:00 99 % Commo n [facility] respiratory rate 2023-03-30 13:15:00 18 /min [facility] blood pressure systolic 2023-03-30 13:15:00 146 mm[Hg] [facility] blood pressure diastolic 2023-03-30 13:15:00 68 mm[Hg] Common [facility] height 2023-03-22 11:00:00 68 [in_i] Commo n [facility] weight 2023-03-22 11:00:00 230.6 [lb_av] Co mmon [facility] temperature 2023-03-22 11:00:00 97.6 [degF] Com mon [facility] bmi 2023-03-22 11:00:00 35.06 kg/m2 Comm on [facility] oximetry 2023-03-22 11:00:00 99 % Commo n [facility] respiratory rate 2023-03-22 11:00:00 18 /min Common [facility] blood pressure systolic 2023-03-22 11:00:00 140 mm[Hg] [facility] blood pressure diastolic 2023-03-22 11:00:00 68 mm[Hg] [facility] height 2022-12-15 11:15:00 68 [in_i] Commo n [facility] weight 2022-12-15 11:15:00 216 [lb_av] Comm on [facility] temperature 2022-12-15 11:15:00 97.7 [degF] Com mon [facility] bmi 2022-12-15 11:15:00 32.84 kg/m2 Comm on [facility] oximetry 2022-12-15 11:15:00 94 % Commo n [facility] respiratory rate 2022-12-15 11:15:00 16 /min [facility] blood pressure systolic 2022-12-15 11:15:00 153 mm[Hg] [facility] blood pressure diastolic 2022-12-15 11:15:00 83 mm[Hg] [facility] Systolic blood pressure 2022-12-05 19:55:00 159 mm[Hg] [facility] Diastolic blood pressure 2022-12-05 19:55:00 93 mm[Hg] [facility] Heart rate 2022-12-05 19:55:00 78 /min [facility] Tylere [facility] Body height 2022-12-05 19:55:00 170.2 cm [facility] Body weight 2022-12-05 19:55:00 98.022 kg [facility] BMI 2022-12-05 19:55:00 33.85 kg/m2 [facility] Oxygen saturation in Arterial blood by Pulse oximetry 2022-12-05 19:55:00 96 /min [facility] height 2022-10-27 09:15:00 68 [in_i] Commo n [facility] weight 2022-10-27 09:15:00 214 [lb_av] Comm on [facility] temperature 2022-10-27 09:15:00 97.3 [degF] Com mon [facility] bmi 2022-10-27 09:15:00 32.54 kg/m2 Comm on [facility] oximetry 2022-10-27 09:15:00 96 % Commo n [facility] respiratory rate 2022-10-27 09:15:00 18 /min [facility] blood pressure systolic 2022-10-27 09:15:00 143 mm[Hg] [facility] blood pressure diastolic 2022-10-27 09:15:00 90 mm[Hg] [facility] Systolic blood pressure 2022-09-05 15:58:00 138 mm[Hg] [facility] Diastolic blood pressure 2022-09-05 15:58:00 82 mm[Hg] [facility] Heart rate 2022-09-05 15:58:00 65 /min [facility] 2022-09-05 15:58:00 167.6 cm [facility] Body weight 2022-09-05 15:58:00 96.707 kg [facility] BMI 2022-09-05 15:58:00 34.41 kg/m2 [facility] Oxygen saturation in Arterial blood by Pulse oximetry 2022-09-05 15:58:00 96 /min [facility] Body temperature 2022-09-05 15:55:00 36.83 Yajaira [facility] height 2022-07-28 09:00:00 68 [in_i] Commo n [facility] weight 2022-07-28 09:00:00 209.4 [lb_av] Co mmon [facility] temperature 2022-07-28 09:00:00 98.5 [degF] Com mon [facility] bmi 2022-07-28 09:00:00 31.84 kg/m2 Comm on [facility] oximetry 2022-07-28 09:00:00 98 % Comm n [facility] respiratory rate 2022-07-28 09:00:00 16 /min [facility] blood pressure systolic 2022-07-28 09:00:00 176 mm[Hg] [facility] blood pressure diastolic 2022-07-28 09:00:00 90 mm[Hg] [facility] Systolic blood pressure 2022-07-04 14:53:00 139 mm[Hg] [facility] Diastolic blood pressure 2022-07-04 14:53:00 88 mm[Hg] [facility] Heart rate 2022-07-04 14:53:00 87 /min [facility] Body temperature 2022-07-04 14:53:00 36.78 Yajaira [facility] Respiratory rate 2022-07-04 14:53:00 16 /min [facility] Body weight 2022-07-04 14:53:00 93.94 kg [facility] BMI 2022-07-04 14:53:00 32.44 kg/m2 [facility] Oxygen saturation in Arterial blood by Pulse oximetry 2022-07-04 14:53:00 96 /min [facility] blood pressure diastolic 2022-05-10 10:30:00 76 mm[Hg] [facility] height 2022-05-10 10:30:00 68 [in_i] Commo n [facility] weight 2022-05-10 10:30:00 206 [lb_av] Comm on [facility] temperature 2022-05-10 10:30:00 96.9 [degF] Com [facility] bmi 2022-05-10 10:30:00 31.32 kg/m2 Comm on [facility] blood pressure systolic 2022-05-10 10:30:00 134 mm[Hg] [facility] Systolic blood pressure 2022-05-02 15:40:00 99 mm[Hg] [facility] Diastolic blood pressure 2022-05-02 15:40:00 57 mm[Hg] [facility] Heart rate 2022-05-02 15:40:00 96 /min [facility] Body temperature 2022-05-02 15:40:00 37.17 Yajaira [facility] Respiratory rate 2022-05-02 15:40:00 18 /min [facility] Body weight 2022-05-02 15:40:00 94.303 kg [facility] BMI 2022-05-02 15:40:00 32.56 kg/m2 [facility] Oxygen saturation in Arterial blood by Pulse oximetry 2022-05-02 15:40:00 94 /min [facility] height 2022-04-27 17:45:00 68 [in_i] Commo n [facility] weight 2022-04-27 17:45:00 205 [lb_av] Comm on [facility] temperature 2022-04-27 17:45:00 97.6 [degF] Com [facility] bmi 2022-04-27 17:45:00 31.17 kg/m2 Comm on [facility] oximetry 2022-04-27 17:45:00 98 % Commo n [facility] respiratory rate 2022-04-27 17:45:00 16 /min [facility] blood pressure systolic 2022-04-27 17:45:00 107 mm[Hg] [facility] blood pressure diastolic 2022-04-27 17:45:00 66 mm[Hg] [facility] Procedures Procedure Date / Time Performed Performing Clinician Source MEDICAL RELEASE/CLEARANCE FORMS 2023-09-28 06:01:00 Doctor Unassigned, Renwick [facility] PVR 2023-06-28 00:00:00 [facility] TRANSTHORACIC ECHO (TTE) COMPLETE W/ CONTRAST 2023-06-08 20:53:26 Bradley Gonzalez [facility] PATIENT FINANCIAL POLICY 2023-04-06 17:58:19 Doctor Unassigned, Renwick [facility] PVR 2023-03-22 00:00:00 [facility] MEDICAL RELEASE/CLEARANCE FORMS 2023-01-27 05:01:00 Doctor Unassigned, Renwick [facility] PVR 2022-12-15 00:00:00 [facility] ASSIGNMENT OF BENEFITS 2022-12-05 19:26:21 Docto r Unassigned, Renwick [facility] PVR 2022-11-18 00:00:00 [facility] REFERRAL- REQUEST/RESPONSE 2022-09-01 06:01:00 Doctor Unassigned, Renwick [facility] INDIVIDUAL CARDIAC TREATMENT PLAN 2022-08-05 14:57:00 Doctor Unassigned, Renwick [facility] CARDIAC REHAB SESSION REPORT 2022-07-22 06:00:00 Doctor Unassigned, Renwick [facility] CARDIAC REHAB SESSION REPORT 2022-07-14 06:00:00 Doctor Unassigned, Renwick [facility] CARDIAC REHAB SESSION REPORT 2022-07-12 06:00:00 Doctor Unassigned, Renwick [facility] INDIVIDUAL CARDIAC TREATMENT PLAN 2022-07-08 02:37:00 Doctor Unassigned, Renwick [facility] CARDIAC REHAB SESSION REPORT 2022-07-05 06:00:00 Doctor Unassigned, Renwick [facility] CARDIAC REHAB SESSION REPORT 2022-06-28 06:00:00 Doctor Unassigned, Renwick [facility] CARDIAC REHAB SESSION REPORT 2022-06-14 06:00:00 Doctor Unassigned, Renwick [facility] CARDIAC REHAB SESSION REPORT 2022-06-02 06:00:00 Doctor Unassigned, Renwick [facility] CARDIAC REHAB SESSION REPORT 2022-05-26 05:00:00 Doctor Unassigned, Renwick [facility] CARDIAC REHAB SESSION REPORT 2022-05-24 05:00:00 Doctor Unassigned, Renwick [facility] INDIVIDUAL CARDIAC TREATMENT PLAN 2022-05-13 13:38:00 Doctor Unassigned, Renwick [facility] CARDIAC REHAB SESSION REPORT 2022-04-28 05:00:00 Doctor Unassigned, Renwick [facility] CARDIAC REHAB SESSION REPORT 2022-04-26 05:00:00 Doctor Unassigned, Renwick [facility] CARDIAC REHAB SESSION REPORT 2022-04-21 05:00:00 Doctor Unassigned, Renwick [facility] CARDIAC REHAB SESSION REPORT 2022-04-19 05:00:00 Doctor Unassigned, Renwick [facility] INDIVIDUAL CARDIAC TREATMENT PLAN 2022-04-15 14:01:00 Doctor Unassigned, Renwick [facility] CARDIAC REHAB SESSION REPORT 2022-04-14 05:00:00 Doctor Unassigned, Renwick [facility] CARDIAC REHAB SESSION REPORT 2022-04-12 05:00:00 Doctor Unassigned, Renwick [facility] Encounters Start Date/Time End Date/Time Encounter Type Admission Type Attending [facility] Care Department Encounter ID Source 2023-09-04 10:51:00 [facility] [id number] [facility] 2023-08-21 08:19:00 Outpatient MedelLawrence [facility] [id number] [facility] 2022-05-10 10:01:03 Outpatient MedelLawrence [facility] [id number] [facility] 2022-04-27 16:58:01 Outpatient MedelLawrence [facility] [id number] [facility] 2022-01-19 06:32:00 Inpatient ANASTACIO [facility] [id number] [facility] 2022-01-06 08:35:02 Outpatient Medel, [facility] [id number] [facility] 2021-12-15 09:25:02 Outpatient Medel, [facility] [id number] [facility] 2021-11-16 09:20:02 Outpatient Medel, [facility] [id number] [facility] 2021-11-04 10:16:02 Outpatient Medel, [facility] [id number] [facility] 2021-11-02 08:24:02 Outpatient Medel, [facility] [id number] [facility] 2021-08-18 14:24:25 Outpatient Medel, [facility] [id number] [facility] 2023-10-03 00:00:00 2023-10-03 00:00:00 [facility] 1..840.114 350.1.13.10 4.2.7.2.686 [id number] [facility] 2023-09-28 00:00:00 2023-09-28 00:00:00 Christa Gonzalez [facility] 1..840.114 350.1.13.10 4.2.7.2.686 [id number] [facility] 2023-09-28 00:00:00 2023-09-28 00:00:00 Orders Only Doctor Unassigned, Renwick [facility] 1..840.114 350.1.13.10 4.2.7.2.686 [id number] [facility] 2023-09-14 00:00:00 2023-09-14 00:00:00 OFFICE VISIT ESTAB PT LEVEL 4 STLMLC STLMLC [id number] [facility] 2023-09-11 00:00:00 2023-09-11 00:00:00 (TEL) STLMLC STLMLC [id number] [facility] 2023-09-07 11:20:00 2023-09-07 11:20:00 Office [facility] 1.2.840.114 350.1.13.10 4.2.7.2.686 [id number] [facility] 2023-09-07 11:20:00 2023-09-07 11:19:14 Outpatient R BRADLEY GONZALEZ [facility] [id number] [facility] 2023-09-06 00:00:00 2023-09-06 00:00:00 OFFICE VISIT ESTAB PT LEVEL 3 STLMLC STLMLC [id number] [facility] 2023-09-06 00:00:00 2023-09-06 00:00:00 [facility] 1.2.840.114 350.1.13.10 4.2.7.2.686 [id number] [facility] 2023-09-01 00:00:00 2023-09-01 00:00:00 Refill [facility] 1.2.840.114 350.1.13.10 4.2.7.2.686 [id number] [facility] 2023-08-03 00:00:00 2023-08-03 00:00:00 (TEL) STLMLC STLMLC [id number] [facility] 2023-07-31 00:00:00 2023-07-31 00:00:00 OFFICE VISIT ESTAB PT LEVEL 4 STLMLC STLMLC [id number] [facility] 2023-07-06 00:00:00 2023-07-06 00:00:00 (TEL) STLMLC STLMLC [id number] [facility] 2023-06-28 00:00:00 2023-06-28 00:00:00 OFFICE VISIT ESTAB PT LEVEL 3 STLMLC STLMLC [id number] [facility] 2023-06-09 08:00:00 2023-06-09 08:28:56 Outpatient R CARLOS [facility] [id number] [facility] 2023-06-09 08:00:00 2023-06-09 08:15:00 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, Adc Lab Carlos [facility] BUILDING 1.2.840.114 350.1.13.10 4.2.7.2.686 [id number] [facility] 2023-06-09 00:00:00 2023-06-09 00:00:00 Telephone Carlos [facility] BUILDING 1.2.840.114 350.1.13.10 4.2.7.2.686 [id number] [id number] [facility] 2023-06-08 13:31:21 2023-06-08 23:59:00 [facility] 1.2.840.114 350.1.13.10 4.2.7.2.686 [id number] [facility] 2023-06-08 15:00:00 2023-06-08 16:12:15 Outpatient R CARLOS [facility] [id number] [facility] 2023-06-08 15:00:00 2023-06-08 15:20:00 Office Visit Carlos [facility] BUILD[facility] 1.2.840.114 350.1.13.10 4.2.7.2.686 [id number] [facility] 2023-05-12 15:15:00 2023-05-12 16:00:00 Ancillary Visit Rosita Story Craig L [facility] BU[facility] 1.2.840.114 350.1.13.10 4.2.7.2.686 [id number] [facility] 2023-05-12 15:15:00 2023-05-12 15:15:00 Outpatient R PRINCESS SCHULTZ CRAIG [facility] [id number] [facility] 2023-05-10 13:00:00 2023-05-10 13:57:08 Ancillary Visit Abdifatah Story Craig L [facility] 1.2.840.114 350.1.13.10 4.2.7.2.686 [id number] [facility] 2023-05-04 14:30:00 2023-05-04 15:15:00 Ancillary Visit Abdifatah Story Craig L [facility] 1.2.840.114 350.1.13.10 4.2.7.2.686 [id number] [facility] 2023-05-02 14:30:00 2023-05-02 15:15:00 Ancillary Visit Abdifatah Story Craig L [facility] 1.2.840.114 350.1.13.10 4.2.7.2.686 [id number] [facility] 2023-04-25 14:30:00 2023-04-25 15:15:00 Ancillary Visit Abdifatah Story Craig L [facility] 1.2.840.114 350.1.13.10 4.2.7.2.686 [id number] [facility] 2023-04-20 10:15:00 2023-04-20 11:00:03 Outpatient R PRINCESS SCHULTZ CRAIG [facility] [id number] [facility] 2023-04-20 10:15:00 2023-04-20 11:00:03 Ancillary Visit Samanta Decker Craig L [facility] 1.2.840.114 350.1.13.10 4.2.7.2.686 [id number] [facility] 2023-04-18 13:45:00 2023-04-18 14:30:00 Ancillary Visit Elisabeth Davila Craig L [facility] 1.2.840.114 350.1.13.10 4.2.7.2.686 [id number] [facility] 2023-04-13 13:45:00 2023-04-13 14:30:00 Ancillary Visit Abdifatah Story Craig L [facility] BU[facility] 1.2.840.114 350.1.13.10 4.2.7.2.686 [id number] [facility] 2023-04-11 15:15:00 2023-04-11 16:00:00 Ancillary Visit Elisabeth aDvila Craig L [facility] 1.2.840.114 350.1.13.10 4.2.7.2.686 [id number] [facility] 2023-04-06 13:00:00 2023-04-06 13:59:11 Ancillary Visit Emilia Ruiz Craig L [facility] 1.2.840.114 350.1.13.10 4.2.7.2.686 [id number] [facility] 2023-04-06 00:00:00 2023-04-06 00:00:00 Orders Only Doctor Unassigned, Renwick [facility] 1.2.840.114 350.1.13.10 4.2.7.2.686 [id number] [facility] 2023-03-30 00:00:00 2023-03-30 00:00:00 OFFICE VISIT ESTAB PT LEVEL 2 STLMLC STLMLC [id number] [facility] 2023-03-25 00:00:00 2023-03-25 00:00:00 (TEL) STLMLC STLMLC [id number] [facility] 2023-03-22 00:00:00 2023-03-22 00:00:00 OFFICE VISIT ESTAB PT LEVEL 4 STLMLC STLMLC [id number] [facility] 2023-03-06 00:00:00 2023-03-06 00:00:00 [facility] 1.2.840.114 350.1.13.10 4.2.7.2.686 [id number] [facility] 2023-01-27 00:00:00 2023-01-27 00:00:00 Orders Only Doctor Unassigned, Renwick [facility] 1.2.840.114 350.1.13.10 4.2.7.2.686 [id number] [facility] 2023-01-26 00:00:00 2023-01-26 00:00:00 [facility] 1.2.840.114 350.1.13.10 4.2.7.2.686 [id number] [facility] 2022-12-21 00:00:00 2022-12-21 00:00:00 (TEL) STLMLC STLMLC [id number] [facility] 2022-12-15 00:00:00 2022-12-15 00:00:00 OFFICE VISIT ESTAB [facility]EVEL 3 [facility] [id number] 2022-12-07 00:00:00 2022-12-07 00:00:00 [facility] 1.2.840.114 350.1.13.10 4.2.7.2.686 [id number] [facility] 2022-12-05 15:00:00 2022-12-05 15:08:42 Outpatient R CARLOS [facility] [id number] [facility] 2022-12-05 15:00:00 2022-12-05 15:08:42 [facility] 1.2.840.114 350.1.13.10 4.2.7.2.686 [id number] [facility] 2022-12-05 00:00:00 2022-12-05 00:00:00 Orders Only Doctor Unassigned, Renwick [facility] 1.2.840.114 350.1.13.10 4.2.7.2.686 [id number] [facility] 2022-12-02 00:00:00 2022-12-02 00:00:00 Telephone Carlos [facility] 1.2.840.114 350.1.13.10 4.2.7.2.686 [id number] [facility] 2022-11-18 00:00:00 2022-11-18 00:00:00 ([place]) [facility] [id number] [facility] 2022-10-31 00:00:00 2022-10-31 00:00:00 (TEL) [facility] [id number] [facility] 2022-10-31 00:00:00 2022-10-31 00:00:00 Telephone [facility] 1.2.840.114 350.1.13.10 4.2.7.2.686 [id number] [facility] 2022-10-27 00:00:00 2022-10-27 00:00:00 OFFICE VISIT ESTAB PT LEVEL 3 STLMLC STLMLC [id number] [facility] 2022-09-05 10:00:00 2022-09-05 10:10:12 [facility] [id number] [facility] 2022-09-05 10:00:00 2022-09-05 10:10:12 [facility] 1.2.840.114 350.1.13.10 4.2.7.2.686 [id number] [facility] 2022-09-01 00:00:00 2022-09-01 00:00:00 Orders Only Doctor Unassigned, Renwick [facility] 1.2.840.114 350.1.13.10 4.2.7.2.686 [id number] [facility] 2022-08-30 13:45:00 2022-08-30 14:38:02 Outpatient R PRINCESS SCHULTZ [facility] [id number] [facility] 2022-08-30 13:45:00 2022-08-30 14:38:02 Ancillary Visit Rosita Story Craig L [facility] 1.2.840.114 350.1.13.10 4.2.7.2.686 [id number] [facility] 2022-08-25 13:45:00 2022-08-25 15:05:02 Ancillary Visit Rosita Story Craig L [facility] 1.2.840.114 350.1.13.10 4.2.7.2.686 [id number] [facility] 2022-08-23 13:00:00 2022-08-23 13:41:01 Ancillary Visit Rosita Story Craig L [facility] 1.2.840.114 350.1.13.10 4.2.7.2.686 [id number] [facility] 2022-08-18 13:45:00 2022-08-18 14:19:22 Ancillary Visit Elisabeth Davila Craig L [facility] BU[facility] 1.2.840.114 350.1.13.10 4.2.7.2.686 [id number] [facility] 2022-08-11 16:00:00 2022-08-11 16:31:35 Ancillary Visit Abdifatah Story Craig L [facility] 1.2.840.114 350.1.13.10 4.2.7.2.686 [id number] [facility] 2022-08-11 09:30:00 2022-08-11 10:51:15 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 Rehab, [facility] 1.2.840.114 350.1.13.10 4.2.7.2.686 [id number] [facility] 2022-08-11 09:30:00 2022-08-11 09:30:00 Outpatient R BRADLEY GONZALEZ [facility] [id number] [facility] 2022-08-09 15:15:00 2022-08-09 16:26:09 Ancillary Visit Rosita Story Craig L [facility] 1.2.840.114 350.1.13.10 4.2.7.2.686 [id number] [facility] 2022-08-09 10:00:00 2022-08-09 11:24:10 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 Rehab, [facility] Cardiac Carlos, [facility] 1.2.840.114 350.1.13.10 4.2.7.2.686 [id number] [facility] 2022-08-05 00:00:00 2022-08-05 00:00:00 Orders Only Doctor Unassigned, Renwick [facility] 1.2.840.114 350.1.13.10 4.2.7.2.686 [id number] [facility] 2022-08-04 15:15:00 2022-08-04 16:00:00 Ancillary Visit Abdifatah Story Craig L [facility] 1.2.840.114 350.1.13.10 4.2.7.2.686 [id number] [facility] 2022-08-04 10:00:00 2022-08-04 11:01:27 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 Rehab, [facility] Cardiac Carlos, [facility] BUILDING 1.2.840.114 350.1.13.10 4.2.7.2.686 [id number] [facility] 2022-08-02 16:00:00 2022-08-02 16:46:28 Ancillary Visit Rosita Story Craig L [facility] 1.2.840.114 350.1.13.10 4.2.7.2.686 [id number] [facility] 2022-08-02 10:00:00 2022-08-02 10:39:18 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 Rehab, Adc Cardiac Carlos, [facility] BUILDING 1.2840.114 350.1.13.10 4.2.7.2.686 [id number] [facility] 2022-07-29 09:45:00 2022-07-29 11:15:15 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 Rehab, [facility] Cardiac Carlos, [facility] BUILDING 1.2840.114 350.1.13.10 4.2.7.2.686 [id number] [facility] 2022-07-28 14:30:00 2022-07-28 15:41:46 Ancillary Visit Abdifatah Story Craig L [facility] 1.2840.114 350.1.13.10 4.2.7.2.686 [id number] [facility] 2022-07-28 00:00:00 2022-07-28 00:00:00 OFFICE VISIT EST PT LEVEL 3 STLMLC STLMLC [id number] [facility] 2022-07-26 15:15:00 2022-07-26 16:00:00 Ancillary Visit Elisabeth Davila Craig L [facility] 1.2.840.114 350.1.13.10 4.2.7.2.686 [id number] [facility] 2022-07-26 15:15:00 2022-07-26 15:52:08 Outpatient R PRINCESS SCHULTZ [facility] [id number] [facility] 2022-07-22 10:15:00 2022-07-22 11:52:51 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 Rehab, [facility] Cardiac Carlos, [facility] 1.2840.114 350.1.13.10 4.2.7.2.686 [id number] [facility] 2022-07-22 10:15:00 2022-07-22 10:15:00 [facility] [id number] [facility] 2022-07-22 09:30:00 2022-07-22 10:15:00 Ancillary Visit Rosita Story Craig L [facility] [id number] 350.1.13.10 4.2.7.2.686 [id number] [facility] 2022-07-22 09:30:00 2022-07-22 09:30:00 Outpatient PRINCESS SANTIAGO [facility] [id number] [facility] 2022-07-22 00:00:00 2022-07-22 00:00:00 Orders Only Doctor Unassigned, [place] [facility] [id number] 350.1.13.10 4.2.7.2.686 [id number] [facility] 2022-07-20 10:00:00 2022-07-20 10:16:13 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 Rehab, [facility] Card[facility] Carlos, [facility] [id number] 350.1.13.10 4.2.7.2.686 [id number] [facility] 2022-07-20 08:00:00 2022-07-20 09:11:49 Ancillary Visit Abdifatah Story Craig L [facility] [facility] BUILDING 1.2.840.114 350.1.13.10 4.2.7.2.686 [id number] [facility] 2022-07-14 10:00:00 2022-07-14 10:48:26 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 Rehab, Adc Cardiac Carlos, [facility] BUILDING 1.2.840.114 350.1.13.10 4.2.7.2.686 [id number] 060 [id number] [facility] 2022-07-14 00:00:00 2022-07-14 00:00:00 Orders Only Doctor Unassigned, [place] [facility] 1.2.840.114 350.1.13.10 4.2.7.2.686 [id number] 009 [id number] [facility] 2022-07-13 00:00:00 2022-07-13 00:00:00 Telephone Carlos [facility] BUILDING 1.2.840.114 350.1.13.10 4.2.7.2.686 [id number] 059 [id number] [facility] 2022-07-12 10:00:00 2022-07-12 11:20:33 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 Rehab, [facility] Cardiac Carlos [facility] BUILDING 1.2.840.114 350.1.13.10 4.2.7.2.686 [id number] 060 [id number] [facility] 2022-07-12 00:00:00 2022-07-12 00:00:00 Orders Only Doctor Unassigned, [place] [facility] 1.2.840.114 350.1.13.10 4.2.7.2.686 [id number] [id number] [facility] 2022-07-11 13:45:00 2022-07-11 14:02:36 Ancillary Visit Abdifatah Story Craig L [facility] BUILDING 1.2.840.114 350.1.13.10 4.2.7.2.686 [id number] [facility] 2022-07-08 14:24:49 2022-07-08 23:59:00 [facility] [id number] [facility] 2022-07-07 13:45:00 2022-07-07 14:30:00 Ancillary Visit Elisabeth Davila Craig L [facility] 1.2840.114 350.1.13.10 4.2.7.2.686 [id number] [facility] 2022-07-07 10:00:00 2022-07-07 10:47:17 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 Rehab, Adc Cardiac Carlos, [facility] 1.2840.114 350.1.13.10 4.2.7.2.686 [id number] 060 [id number] [facility] 2022-07-07 00:00:00 2022-07-07 00:00:00 Orders Only Doctor Unassigned, [place] [facility] 1.2840.114 350.1.13.10 4.2.7.2.686 [id number] [id number] [facility] 2022-07-05 14:30:00 2022-07-05 15:15:00 Ancillary Visit Elisabeth Davila Craig L [facility] 1.2840.114 350.1.13.10 4.2.7.2.686 [id number] [facility] 2022-07-05 10:00:00 2022-07-05 10:46:27 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 Rehab, [facility] Cardiac Carlos, [facility] 1.20.114 350.1.13.10 4.2.7.2.686 [id number] 060 [id number] [facility] 2022-07-05 00:00:00 2022-07-05 00:00:00 Orders Only Doctor Unassigned, [place] [facility] 1.2840.114 350.1.13.10 4.2.7.2.686 [id number] 009 [id number] [facility] 2022-07-04 09:00:00 2022-07-04 09:07:28 [facility] [id number] [facility] 2022-07-04 09:00:00 2022-07-04 09:07:28 [facility] 1.2.840.114 350.1.13.10 4.2.7.2.686 [id number] 059 [id number] [facility] 2022-06-30 10:00:00 2022-06-30 10:58:03 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 Rehab, [facility] Cardiac Carlos, [facility] BUILDING 1.2.840.114 350.1.13.10 4.2.7.2.686 [id number] 060 [id number] [facility] 2022-06-29 13:45:00 2022-06-29 15:07:25 Ancillary Visit Karyn Peterson Craig L [facility] 1.2840.114 350.1.13.10 4.2.7.2.686 [id number] [facility] 2022-06-28 10:00:00 2022-06-28 10:49:44 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 Rehab, [facility] Cardiac Carlos, [facility] 1.2840.114 350.1.13.10 4.2.7.2.686 [id number] 060 [id number] [facility] 2022-06-28 00:00:00 2022-06-28 00:00:00 Orders Only Doctor Unassigned, [place] [facility] 1.2840.114 350.1.13.10 4.2.7.2.686 [id number] [id number] [facility] 2022-06-23 10:00:00 2022-06-23 10:27:51 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 Rehab, Adc Cardiac Carlos, [facility] 1.2840.114 350.1.13.10 4.2.7.2.686 [id number] 060 [id number] [facility] 2022-06-21 10:00:00 2022-06-21 10:56:00 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 Rehab, Adc Cardiac Carlos, [facility] BUILDING 1.2840.114 350.1.13.10 4.2.7.2.686 [id number] [facility] 2022-06-21 10:00:00 2022-06-21 10:00:00 Outpatient R CARLOS, [facility] [id number] [facility] 2022-06-14 10:00:00 2022-06-14 11:46:21 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 Rehab, Adc Cardiac Carlos, [facility] BUILDING 1.2840.114 350.1.13.10 4.2.7.2.686 [id number] 060 [id number] [facility] 2022-06-14 00:00:00 2022-06-14 00:00:00 Orders Only Doctor Unassigned, [place] [facility] 1.2840.114 350.1.13.10 4.2.7.2.686 [id number] [id number] [facility] 2022-06-09 10:00:00 2022-06-09 10:38:49 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 Rehab, Adc Cardiac Carlos, [facility] BUILDING 1.2840.114 350.1.13.10 4.2.7.2.686 [id number] 060 [id number] [facility] 2022-06-07 10:00:00 2022-06-07 10:47:00 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 Rehab, Adc Cardiac Carlos, [facility] BUILDING 1.2840.114 350.1.13.10 4.2.7.2.686 [id number] 060 [id number] [facility] 2022-06-02 10:00:00 2022-06-02 10:50:42 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 Rehab, [facility] 1.2.840.114 350.1.13.10 4.2.7.2.686 [id number] 060 [id number] [facility] 2022-06-02 00:00:00 2022-06-02 00:00:00 Orders Only Doctor Unassigned, [place] [facility] 1.2.840.114 350.1.13.10 4.2.7.2.686 [id number] [id number] [facility] 2022-05-31 10:00:00 2022-05-31 10:55:13 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 Rehab, Adc Cardiac Carlos, [facility] 1.2.840.114 350.1.13.10 4.2.7.2.686 [id number] 060 [id number] [facility] 2022-05-26 10:00:00 2022-05-26 11:00:48 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 Rehab, Adc Cardiac Carlos, [facility] BUILDING 1.2.840.114 350.1.13.10 4.2.7.2.686 [id number] 060 [id number] [facility] 2022-05-24 10:00:00 2022-05-24 10:56:29 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 Rehab, Adc Cardiac Carlos, [facility] 1.2.840.114 350.1.13.10 4.2.7.2.686 [id number] 060 [id number] [facility] 2022-05-24 10:00:00 2022-05-24 10:00:00 Outpatient R CARLOS, [facility] [id number] [facility] 2022-05-24 00:00:00 2022-05-24 00:00:00 Orders Only Doctor Unassigned, [place] [facility] 1.2840.114 350.1.13.10 4.2.7.2.686 [id number] [id number] [facility] 2022-05-20 00:00:00 2022-05-20 00:00:00 (TEL) STLMLC ST[facility]MLC [id number] [facility] 2022-05-19 10:00:00 2022-05-19 11:09:40 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 Rehab, Adc Cardiac Carlos, [facility] 1.2840.114 350.1.13.10 4.2.7.2.686 [id number] 060 [id number] [facility] 2022-05-19 10:00:00 2022-05-19 10:00:00 Outpatient R CARLOS, [facility] [id number] [facility] 2022-05-17 10:00:00 2022-05-17 11:16:51 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 Rehab, Adc Cardiac Carlos, [facility] 1.2840.114 350.1.13.10 4.2.7.2.686 [id number] 060 [id number] [facility] 2022-05-13 00:00:00 2022-05-13 00:00:00 Orders Only Doctor Unassigned, [place] [facility] 1.2840.114 350.1.13.10 4.2.7.2.686 [id number] 009 [id number] [facility] 2022-05-12 10:00:00 2022-05-12 11:05:37 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 Rehab, Adc Cardiac Carlos, [facility] 1.2.840.114 350.1.13.10 4.2.7.2.686 [id number] 060 [id number] [facility] 2022-05-10 00:00:00 2022-05-10 00:00:00 OFFICE VISIT ESTAB PT LEVEL 4 [id number] 2022-05-03 00:00:00 2022-05-03 00:00:00 [facility] 1.2.840.114 350.1.13.10 4.2.7.2.686 [id number] 059 [id number] [facility] 2022-05-02 11:00:00 2022-05-02 11:15:00 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, [facility] 1.2.840.114 350.1.13.10 4.2.7.2.686 [id number] [facility] 2022-05-02 11:00:00 2022-05-02 11:00:00 [facility] [id number] [facility] 2022-05-02 10:40:00 2022-05-02 10:54:12 [facility] 1.2.840.114 350.1.13.10 4.2.7.2.686 [id number] 059 [id number] [facility] 2022-05-02 10:40:00 2022-05-02 10:40:00 [facility] [id number] [facility] 2022-04-28 10:00:00 2022-04-28 10:56:33 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 Rehab, Adc Cardiac Carlos [facility] BUILDING 1.2.840.114 350.1.13.10 4.2.7.2.686 [id number] 060 [id number] [facility] 2022-04-28 10:00:00 2022-04-28 10:00:00 Outpatient R CARLOS, [facility] [id number] [facility] 2022-04-28 00:00:00 2022-04-28 00:00:00 Orders Only Doctor Unassigned, [place] [facility] 1.2840.114 350.1.13.10 4.2.7.2.686 [id number] [id number] [facility] 2022-04-27 00:00:00 2022-04-27 00:00:00 OFFICE VISIT ESTAB PT LEVEL 2 STLMLC STLMLC [id number] [facility] 2022-04-26 10:00:00 2022-04-26 10:48:54 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 Rehab, Adc Cardiac Carlos, [facility] BUILDING 1.20.114 350.1.13.10 4.2.7.2.686 [id number] 060 [id number] [facility] 2022-04-26 00:00:00 2022-04-26 00:00:00 Orders Only Doctor Unassigned, [place] [facility] 1.20.114 350.1.13.10 4.2.7.2.686 [id number] [id number] [facility] 2022-04-21 10:00:00 2022-04-21 10:40:04 Outpatient R CARLOS, [facility] [id number] [facility] 2022-04-21 10:00:00 2022-04-21 10:40:04 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 Rehab, Adc Cardiac Carlos, [facility] BUILDING 1.20.114 350.1.13.10 4.2.7.2.686 [id number] 060 [id number] [facility] 2022-04-21 00:00:00 2022-04-21 00:00:00 Orders Only Doctor Unassigned, [place] [facility] 1.2840.114 350.1.13.10 4.2.7.2.686 [id number] 009 [id number] [facility] 2022-04-19 10:00:00 2022-04-19 10:40:31 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 Rehab, [facility] Cardiac Carlos, [facility] 1.2.840.114 350.1.13.10 4.2.7.2.686 [id number] 060 [id number] [facility] 2022-04-19 00:00:00 2022-04-19 00:00:00 Orders Only Doctor Unassigned, [place] [facility] 1.2.840.114 350.1.13.10 4.2.7.2.686 [id number] [id number] [facility] 2022-04-15 00:00:00 2022-04-15 00:00:00 Orders Only Doctor Unassigned, [place] [facility] 1.2840.114 350.1.13.10 4.2.7.2.686 [id number] [id number] [facility] 2022-04-14 10:00:00 2022-04-14 10:55:48 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 Rehab, [facility] Cardiac Carlos, [facility] 1.2840.114 350.1.13.10 4.2.7.2.686 [id number] 060 [id number] [facility] 2022-04-14 00:00:00 2022-04-14 00:00:00 Orders Only Doctor Unassigned, [place] [facility] 1.2840.114 350.1.13.10 4.2.7.2.686 [id number] [id number] [facility] 2022-04-12 10:00:00 2022-04-12 10:58:58 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 Rehab, Adc Cardiac Carlos, [facility] 1.2840.114 350.1.13.10 4.2.7.2.686 [id number] 060 [id number] [facility] 2022-04-12 00:00:00 2022-04-12 00:00:00 Orders Only Doctor Unassigned, [place] [facility] 1.2.840.114 350.1.13.10 4.2.7.2.686 [id number] [id number] [facility] 2022-04-07 10:00:00 2022-04-07 10:35:24 Outpatient R CARLOS, [facility] [id number] [facility] 2022-04-07 10:00:00 2022-04-07 10:35:24 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 Rehab, Adc Cardiac Carlos, [facility] 1.2.840.114 350.1.13.10 4.2.7.2.686 [id number] 060 [id number] [facility] 2022-04-05 10:00:00 2022-04-05 10:59:06 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 Rehab, Adc Cardiac Carlos, [facility] 1.2.840.114 350.1.13.10 4.2.7.2.686 [id number] 060 [id number] [facility] 2022-04-05 10:00:00 2022-04-05 10:59:06 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 Rehab, Adc Cardiac Carlos, [facility] 1.2.840.114 350.1.13.10 4.2.7.2.686 [id number] [id number] [facility] 2022-04-05 00:00:00 2022-04-05 00:00:00 Orders Only Doctor Unassigned, [place] [facility] 1.2.840.114 350.1.13.10 4.2.7.2.686 [id number] [id number] [facility] 2022-03-30 10:00:00 2022-03-30 10:48:35 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 Rehab, Adc Cardiac Carlos, [facility] BUILDING 1.2.840.114 350.1.13.10 4.2.7.2.686 [id number] 060 [id number] [facility] 2022-03-30 10:00:00 2022-03-30 10:00:00 [facility] [id number] [facility] 2022-03-30 10:00:00 2022-03-30 10:00:00 Outpatient R CARLOS, [facility] [id number] [facility] 2022-03-24 10:00:00 2022-03-24 10:16:50 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 Rehab, Adc Cardiac Carlos, [facility] BUILDING 1.2.840.114 350.1.13.10 4.2.7.2.686 [id number] 060 [id number] [facility] 2022-03-24 10:00:00 2022-03-24 10:00:00 Outpatient CARLOS, [facility] [id number] [facility] 2022-03-24 00:00:00 2022-03-24 00:00:00 Orders Only Doctor Unassigned, [place] [facility] 1.2.840.114 350.1.13.10 4.2.7.2.686 [id number] [id number] [facility] 2022-03-22 10:00:00 2022-03-22 10:50:07 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 Rehab, [facility] Cardiac Carlos, [facility] BUILDING 1.2.840.114 350.1.13.10 4.2.7.2.686 [id number] 060 [id number] [facility] 2022-03-22 10:00:00 2022-03-22 10:00:00 [facility] [id number] [facility] 2022-03-17 11:30:00 2022-03-17 13:43:33 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 Rehab, Adc Cardiac Carlos [facility] BUILDING 1.2.840.114 350.1.13.10 4.2.7.2.686 [id number] 060 [id number] [facility] 2022-03-17 11:30:00 2022-03-17 11:30:00 [facility] [id number] [facility] 2022-03-17 10:40:00 2022-03-17 11:18:28 [facility] [id number] [facility] 2022-03-17 10:40:00 2022-03-17 11:18:28 Office Visit Carlos [facility] 1.2.840.114 350.1.13.10 4.2.7.2.686 [id number] [facility] 2022-03-15 07:48:46 2022-03-15 23:59:00 [facility] [id number] [facility] 2022-03-15 09:30:00 2022-03-15 09:30:00 Nurse Visit Visit, [facility] Nurse Anastacio Callejas Carlos [facility] BUILDING 1.2.840.114 350.1.13.10 4.2.7.2.686 [id number] [id number] [facility] 2022-02-24 11:00:00 2022-02-24 11:00:00 Outpatient ANASTACIO MARK [facility] [id number] [facility] 2022-02-24 09:00:00 2022-02-24 09:00:00 [facility] [id number] [facility] 2022-02-24 09:00:00 2022-02-24 09:00:00 Outpatient R BRADLEY GONZALEZ [facility] [id number] [facility] 2022-02-18 00:00:00 2022-02-18 00:00:00 Telephone Melquiades Dayanna Ayanna [facility] 1.0.114 350.1.13.10 4.2.7.2.686 [id number] 037 [id number] [facility] 2022-02-10 14:41:11 2022-02-10 23:59:00 Hospital Encounter Britta [facility] 1..114 350.1.13.10 4.2.7.2.686 [id number] [facility] 2022-02-10 13:30:00 2022-02-10 14:37:53 Outpatient R [facility] [id number] [facility] 2022-02-10 13:30:00 2022-02-10 14:37:53 Office Visit Britta [facility] 1.0.114 350.1.13.10 4.2.7.2.686 [id number] [facility] 2022-02-09 00:00:00 2022-02-09 00:00:00 Orders Only Doctor Unassigned, [place] [facility] 1.0.114 350.1.13.10 4.2.7.2.686 [id number] [id number] [facility] 2022-01-19 06:32:00 2022-01-26 20:14:00 Inpatient R OLIVADavid [facility] [id number] [facility] 2022-01-19 06:32:00 2022-01-26 20:14:00 [facility] 1..114 350.1.13.10 4.2.7.2.686 [id number] [id number] [facility] 2022-01-19 09:55:00 2022-01-19 16:00:00 Surgery Britta Anastacio [facility] 1.2840.114 350.1.13.10 4.2.7.2.686 [id number] [facility] 2022-01-19 00:00:00 2022-01-19 00:00:00 Orders Only Doctor Unassigned, [place] [facility] 1.2840.114 350.1.13.10 4.2.7.2.686 [id number] 009 [id number] [facility] 2022-01-18 11:30:00 2022-01-18 11:45:00 Laboratory Only Only, Adc Test Britta [facility] 1.2840.114 350.1.13.10 4.2.7.2.686 [id number] [facility] 2022-01-18 11:30:00 2022-01-18 11:30:00 Outpatient R [facility] [id number] [facility] 00:00:00 2022-01-04 00:00:00 Case Management RachanaJung [facility] 1.840.114 350.1.13.10 4.2.7.2.686 [id number] 037 [id number] [facility] 2021-12-29 14:10:09 2021-12-29 23:59:00 Hospital Encounter Jung Lebron [facility] 1.2840.114 350.1.13.10 4.2.7.2.686 [id number] [facility] 2021-12-29 14:30:00 2021-12-29 14:45:00 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 Pob, Adc Lab Main Bradley Gonzalez [facility]ESS[facility] 1.840.114 350.1.13.10 4.2.7.2.686 [id number] [facility] 2021-12-29 12:39:23 2021-12-29 13:57:00 Outpatient R CARLOS [facility] [id number] [facility] 2021-12-29 13:00:00 2021-12-29 13:00:00 Outpatient R CARLOS [facility] [id number] [facility] 2021-12-28 14:20:00 2021-12-28 14:48:37 Outpatient R CARLOS [facility] [id number] [facility] 2021-12-28 14:20:00 2021-12-28 14:48:37 Office Visit Carlos [facility] 1.0.114 350.1.13.10 4.2.7.2.686 [id number] [facility] 2021-12-28 00:00:00 2021-12-28 00:00:00 Case Management [facility] 1..114 350.1.13.10 4.2.7.2.686 [id number] [id number] [facility] 2021-12-06 07:51:54 2021-12-06 23:59:00 Outpatient R BERNARDINO [facility] [id number] [facility] 2021-12-06 07:51:54 2021-12-06 23:59:00 [facility] 1.0.114 350.1.13.10 4.2.7.2.686 [id number] [facility] 2021-12-02 14:30:00 2021-12-02 14:59:55 Office Visit Britta [facility] 1.2840.114 350.1.13.10 4.2.7.2.686 [id number] [facility] 2021-12-02 14:30:00 2021-12-02 14:59:55 Outpatient R ANASTACIO CALLEJAS [facility] [id number] [facility] 2021-12-02 14:30:00 2021-12-02 14:30:00 Outpatient R ANASTACIO CALLEJAS [facility] [id number] [facility] 2021-12-02 00:00:00 2021-12-02 00:00:00 [facility] 1..840.114 350.1.13.10 4.2.7.2.686 [id number] [facility] 2021-11-25 08:24:19 2021-11-25 23:59:00 Outpatient R CARLOS [facility] [id number] [facility] 2021-11-25 00:00:00 2021-11-25 00:00:00 [facility] [id number] [facility] 2021-11-09 11:34:45 2021-11-09 23:59:00 Hospital En[facility] 1.840.114 350.1.13.10 4.2.7.2.686 [id number] [facility] 2021-11-09 06:48:00 2021-11-09 13:08:00 Outpatient R SANGEETHA [facility] [id number] [facility] 2021-11-09 06:48:00 2021-11-09 13:08:00 Hospital Encounter [facility] 1..840.114 350.1.13.10 4.2.7.2.686 [id number] [facility] 2021-11-09 08:00:00 2021-11-09 10:00:00 Surgery [facility] 1.840.114 350.1.13.10 4.2.7.2.686 [id number] [facility] 2021-11-09 00:00:00 2021-11-09 00:00:00 Telephone Zelalem [facility] 1.2840.114 350.1.13.10 4.2.7.2.686 [id number] [id number] [facility] 2021-10-27 10:20:00 2021-10-27 15:14:12 Outpatient R [facility] [id number] [facility] 2021-10-27 10:20:00 2021-10-27 10:40:00 [facility] 1.840.114 350.1.13.10 4.2.7.2.686 [id number] [facility] 2021-10-27 10:20:00 2021-10-27 10:20:00 [facility] [id number] [facility] 2021-06-25 00:00:00 2021-06-25 00:00:00 Orders Only Doctor Unassigned, [place] [facility] 1.2840.114 350.1.13.10 4.2.7.2.686 [id number] [facility] 2020-12-10 10:00:00 2020-12-10 10:00:00 [facility] [id number] [facility] 2020-11-24 11:15:00 2020-11-24 12:14:00 [facility].0.114 350.1.13.10 4.2.7.2.686 [id number] [facility] 2020-11-24 10:30:00 2020-11-24 11:14:00 [facility] 1.20.114 350.1.13.10 4.2.7.2.686 [id number] [facility] 2020-11-24 10:00:00 2020-11-24 10:29:00 [facility] 1.20.114 350.1.13.10 4.2.7.2.686 [id number] [facility] 2020-11-24 12:14:33 2020-11-24 09:59:00 [facility] [id number] [facility] 2020-11-24 09:00:00 2020-11-24 09:59:00 [facility]..114 350.1.13.10 4.2.7.2.686 [id number] [facility] 2020-11-24 09:00:00 2020-11-24 09:00:00 [facility] [id number] [facility] 2020-11-16 10:41:02 2020-11-16 11:16:50 [facility] 1..114 350.1.13.10 4.2.7.2.686 [id number] [facility] 2020-11-16 11:00:00 2020-11-16 11:00:00 [facility] [id number] [facility] 2020-11-11 00:00:00 2020-11-11 00:00:00 Orders Only Doctor Unassigned, [place] [facility] 1.84.114 350.1.13.10 4.2.7.2.686 [id number] [facility] 2020-10-10 14:50:00 2020-10-10 14:50:00 Outpatient MENG CAMPOS [facility] [id number] [facility] 2020-09-19 14:20:00 2020-09-19 14:20:00 Outpatient MENG CAMPOS [facility] [id number] [facility] Results Test Description Test Time Test Comments Results Result Co mments Source [facility] Notes Date/Time Note Provider Source 2023-10-03 08:50:45 uilkcSjFvgrxW8lvXLmW Jk2H7nVdaLF wBcGJk6z+iN5PGuHP4GOGzNrqXaJPzD u79318-23-71E14:50:45 Images from the original note were not included.Refill request for carvedilolLOV 09/07/23Cardiovascular: Beta Blockers Fbrqrk4810/03/2023 08:28 AMProtocol Details Valid encounter within last 12 monthsHeart rate within normal limits and completed in the last 12 months 73229-3Ccckgmowy encounter UqysNK7513-19-44D53:53:41Teleph one encounter NoteTXT1.2.840.909352.1.13.104. 2.7.2.394560|[id number] ble for patient vlkb84344-2YtpuIJIQSUIUYZJSytzl tted C-CDA narrative [id number] Venkatesh V[address] CfgaUnrfcqgweDyyativmaDRAG05488 40993AUNLTOSDLIPLJGYMLAYMTD4509 -03-12T08:53:411.2.840.993904.1 .72.3.15|1.2.840.048800.1.13.10 [id number]_[id number] Cristina Riddle RN [facility] 2023-09-29 08:37:16 FFs9FlYtkRfmigNRP05q S5F4+KEBuU0 zwuDdROmIV1mlN4fYbQPr0Ui+nfnFMv uA5768-79-07N38:37:16 Cardiac Clearance/Clinical notes faxed back to [facility] per Dr Gonzalez and scanned into chart along with fax confirmation. 92522-1Wnohovffn encounter FtshCI2302-13-23R01:38:20Teleph one encounter NoteTXT1.2.840.532559.1.13.104. 2.7.2.906120|[id number] ble for patient funj80012-9CijoGWZESIMHFEFRnlqf tted C-CDA narrative [address] GyukHktqbocciJkasstljnKQTS60356 53959WODZGONNEGACPPOHOFVYPD8733 -03-08T08:38:201.2.840.911454.1 .72.3.15|1.2.840.648252.1.13.10 4.2.7.2.727879_[id number] [facility] 2023-09-28 16:47:40 K/8UhffiG+Pk2ZYEDbb2 WIJldMbhHno aYFEf90POz1QgaZT7S4IC+J8JvQ9XdD 3B1194-88-36W11:47:40 Clearance form received. Placed in Dr. Gonzalez's inbox for chart review. 19137-2Tyywaqgiq encounter TczgNG4970-29-48B86:53:30Teleph one encounter NoteTXT1.2.840.052340.1.13.104. 2.7.2.472784|[id number] ble for patient jyvr96083-9RdofLDCTWKJBSOEZyxox tted C-CDA narrative [id number] Castaneda [address] 68212DZUXJWOEOIQCVKZAFVCPZO2271 -03-07T16:53:301.2.840.811056.1 .72.3.15|1.2.840.734521.1.13.10 4.2.7.2.727879_[id number] Ashwin Wylie MA [facility] 2023-09-06 13:20:29 9QSJZgMXe/9xPlqR7auG ptmryEKxyRR iSYytllmqcTf2Q7g2R572aXDC4UQp3f O21933-33-42F60:20:29 74643-5Ejwamnwuh encounter AahcSB8908-83-58S30:20:29Teleph one encounter NoteTXT1.2.840.128707.1.13.104. 2.7.2.701459|[id number] ble for patient fpmr50834-1OrumAHGAZECINTJNwuiq tted C-CDA narrative [address] 82459SMTOXYMQANJZMXVCDSGNJD7239 -02-14T13:20:291.2.840.440284.1 .72.3.15|1.2.840.240441.1.13.10 4.2.7.2.727879_[id number] [facility] 2023-03-06 10:21:04 vL3nJcTgxDtIzMpdZ62x ZLNnz32O8HX 5q8Zvd6eTFNj+3nzmf334Tg9ZukGM8g F49422-58-29R37:21:04 Received refill request for furosemide 20 mg. Per records due for BMP. Contacted patient and he advised that he does not need refills, he only takes the medication as needed and directed at [facility] in November 2022. Refill removed and he will contact office with any further needs. 55251-5Ubabemyzh encounter PhxgEH2390-85-62U73:23:19Teleph one encounter NoteTXT1.2.840.278870.1.13.104. 2.7.2.106469|[id number] [facility] pkdv99718-5RdavOQ612692712Jxtts L Carroll RN[address] NvfyCljofdcavXefrtfrxmTDQJ15943 70956ZOSKROWOALXMKWGDTNSELM5277 -08-14T10:23:191.2.840.544559.1 .72.3.15|1.2.840.798543.1.13.10 4.2.7.2.727879_[id number] Paula Finley RN [facility]"
[2023-10-23] MEDS ORDERED: FUROSEMIDE 20 MG TABLET PO PRN ×2 (13:29→22:21)
--- NOTE | 2023-10-23 13:36 | P.HP ---
Certification for Inpatient Patient admitted to: Observation With expected LOS: <2 Midnights Patient will require the following post-hospital care: None Practitioner: I am a practitioner with admitting privileges, knowledge of patient current condition, hospital course, and medical plan of care. Services: Services provided to patient in accordance with Admission requirements found in Title 42 Section 412.3 of the Code of Federal Regulations Patient History Date of Service: 10/23/23 Reason for admission: S/P cervical fusion/diskectomy History of Present Illness: 78-year-old male with history of hypertension, CAD with previous CABG, prostate cancer is being admitted under observation after having a C3-C4, C4-C5, C5-C6, C6-C7 anterior cervical discectomy and fusion with instrumentation. He had spondylosis with myelopathy in the cervical region of his spine which was indication for this procedure. He had his procedure today and his surgeon Dr. Alcazar was to observe him overnight for pain management and physical therapy evaluation Allergies No Known Allergies Allergy (Verified 10/23/23 06:44) Home Medications: Atorvastatin Calcium [Lipitor] 40 mg PO BEDTIME 12/03/21 Cyanocobalamin [Vitamin B-12*] 1,000 mcg PO DAILY 12/03/21 Docusate [Colace Cap*] 100 mg PO DAILY 12/03/21 Tadalafil [Cialis] 5 mg PO BID 12/03/21 Ubidecarenone [Co Q-10] 100 mg PO DAILY 12/03/21 Furosemide [Lasix*] 20 mg PO PRN PRN 11/02/22 Spironolactone [Aldactone*] 25 mg PO DAILY 11/02/22 Multivit-Mins/Iron/Folic/Lycop [Centrum Men's Tablet] 1 tab PO DAILY 02/16/23 Carvedilol [Coreg] 1 tab PO BID 08/01/23 Nitrofurantoin Monohyd/M-Cryst [Nitrofurantoin Flathead-Mcr 100 mg] 100 mg PO DAILY 08/01/23 Ascorbic Acid [Vitamin C] 500 mg PO DAILY 10/05/23 Cholecalciferol (Vitd3)/Vit K2 [K2-D3 10,000 Unit Capsule] 1 each PO DAILY 10/05/23 Magnesium Glycinate, Mag Oxide [Magnesium Glycinate] 120 mg PO DAILY 10/05/23 Hydrocodone Bit/Acetaminophen [Hydrocodon-Acetaminophn 10-325] 1 each PO Q4H PRN 10/19/23 Aspirin 81 mg PO DAILY 10/23/23 - Past Medical/Surgical History -: CAD SP CABG -: HTN -: Prostate CA -: CABG -: Lumbar spine -: C-spine sx Psychosocial/ Personal History: Lives at home with family - Family History Family History: Reviewed- Non-Contributory - Social History Smoking Status: Never smoker Alcohol use: No CD- Drugs: No Caffeine use: Yes Place of Residence: Home Review of Systems 10-point ROS is otherwise unremarkable Musculoskeletal: Neck Pain Physical Examination - Vital Signs Temperature: 96.6 F Blood Pressure: 172/83 Pulse: 64 Respirations: 16 Pulse Ox (%): 92 - Physical Exam General: Alert, In no apparent distress, Oriented x3 HEENT: Atraumatic, PERRLA, Mucous membr. moist/pink Neck: Supple, 2+ carotid pulse no bruit, No LAD Respiratory: Clear to auscultation bilaterally, Normal air movement Cardiovascular: Regular rate/rhythm, Normal S1 S2 Gastrointestinal: Normal bowel sounds, No tenderness Musculoskeletal: No tenderness Integumentary: No rashes Neurological: Normal speech, Normal strength at 5/5 x4 extr, Normal tone, Normal affect, Other (C-Collar in place, moving all extremities, LABEL DRIER intact) Assessment and Plan - Plan Assessment: Spondylosis with myelopathy of the C-spine S/P C3-C4, C4-C5, C5-C6, C6-C7 anterior cervical discectomy and fusion with instrumentation 4/ History of CAD with previous CABG Hypertension History of prostate cancer Plan: Spondylosis with myelopathy of the C-spine S/P C3-C4, C4-C5, C5-C6, C6-C7 anterior cervical discectomy and fusion with instrumentation 4/1 Orthospine surgery following C-collar in place, PT consulted As needed pain medications History of CAD with previous CABG Hypertension Continue home medications as appropriate Currently holding aspirin until cleared by orthospine surgery History of prostate cancer DVT PPX: SCD Code status: Full Discharge Plan: Home Plan to discharge in: 24 Hours - Advance Directives Does patient have a Living Will: No Does patient have a Durable POA for Healthcare: No - Code Status/Comfort Care Code Status Assessed: Yes (Full code) Critical Care: No Time Spent Managing Pts Care (In Minutes): 50
[2023-10-23 13:45] VITALS: BMI 34.9
[2023-10-23] MEDS: carvediloL 12.5 MG TAB PO SCH (16:40)
[2023-10-23] MEDS: HYDROCODONE/APAP 10/325 TAB PO PRN (16:40)
[2023-10-23] MEDS: CEFAZOLIN 2 GM in NA CHLORIDE 0.9% 100 ML IVPB SCH (16:41)
[2023-10-23] MEDS: ATORVASTATIN 40 MG TAB PO SCH (20:10)
[2023-10-23] MEDS: MORPHINE 2 MG/ML SYR IV PRN (22:04)
[2023-10-24] MEDS: SPIRONOLACTONE 25 MG TABLET PO SCH (09:00)
[2023-10-24] MEDS: COENZYME Q10- 100 MG CAP PO SCH (09:00)
[2023-10-24] MEDS: DOCUSATE NA 100 MG CAP PO SCH (09:00)
--- NOTE | 2023-10-24 13:40 | P.PN ---
Date of Service: 10/24/23 Subjective Awake and c/o the inability to swallow his saliva Barium swallow study today ROS 10 point ROS as noted above, otherwise negative Physical Exam General: AAOx3, NAD, calm and cooperative HEENT: Atraumatic, PERRLA, Mucous membr. moist/pink Neck: Supple, 2+ carotid pulse no bruit, No LAD Respiratory: Clear to auscultation bilaterally, symmetrical chest wall movement Cardiovascular: RRR, Normal S1 S2, no murmur noted Gastrointestinal: Normal bowel sounds, No tenderness Musculoskeletal: No tenderness Integumentary: No rashes Neurological: Normal speech, Normal strength at 5/5 x4 extr, Normal tone, Normal affect, Other (C-Collar in place, moving all extremities, FARM DEMONSTRATOR intact) Vitals Reviewed Problem list Spondylosis with myelopathy of the C-spine S/P C3-C4, C4-C5, C5-C6, C6-C7 anterior cervical discectomy and fusion with instrumentation 10/22 History of CAD with previous CABG Hypertension History of prostate cancer Post pharyngeal wall swelling Plan: Spondylosis with myelopathy of the C-spine S/P C3-C4, C4-C5, C5-C6, C6-C7 ant erior cervical discectomy and fusion with instrumentation 10/22 Post pharyngeal wall swelling Orthospine surgery following C-collar in place, PT consulted As needed pain medications Modified barium swallow- not able to swallow d/t post pharyngeal wall swelling Dobhoff, NPO, dexamethasone 8 mg IV every 8 hours x 3 doses History of CAD with previous CABG Hypertension Continue home medications as appropriate Currently holding aspirin until cleared by orthospine surgery History of prostate cancer Outpatient follow up and management DVT PPX: SCD Code status: Full
--- NOTE | 2023-10-24 13:47 | RAD REPORT ---
EXAM DESCRIPTION: RAD - Barium Swallow Modified - 10/24/2023 1:41 pm CLINICAL HISTORY: swallow evaluation Dysphagia COMPARISON: Abdomen Pelvis Wo Contrast dated 07/18/2023 TECHNIQUE: The patient was given liquid, semi-solid and solid forms of barium. Lateral view fluorosc opic imaging was performed in conjunction with speech pathology service. FINDINGS: Administered: Thin and nectar via spoon Pharyngeal residue: Pyriform and posterior wall Post pharnygeal wall swelling with inability to pass olus to esophagus. Esophageal - pharyngeal refl ux of the bolus. Eventual regurgitation of bolus. Total fluoroscopy time: 1 minutes 23 seconds
--- NOTE | 2023-10-24 14:45 | RAD REPORT ---
EXAM DESCRIPTION: RAD - Abdomen 1 View (KUB) - 10/24/2023 2:40 pm CLINICAL HISTORY: dobhoff tube placement Pain COMPARISON: No comparisons FINDINGS: Tip of the enteric tube appears to be in the distal stomach.
[2023-10-24] MEDS ORDERED: JEVITY 1.5 CAL LIQUID 1,000 ML BOT RTH SCH (15:00)
--- NOTE | 2023-10-24 15:38 | RAD REPORT ---
EXAM DESCRIPTION: RAD - Abdomen 1 View (KUB) - 10/24/2023 3:33 pm CLINICAL HISTORY: placement Pain COMPARISON: Abdomen 1 View (KUB) dated 10/24/2023 FINDINGS: Tip of the enteric tube is likely in the distal stomach/proximal duodenum.
[2023-10-24] MEDS: dexAMETHasone 10 MG/ML VIAL IV SCH (15:49)
[2023-10-25 09:13] LABS: Absolute Lymphocytes (CBC) 0.6 K/uL (0.7-4.9); Absolute Monocytes 0.4 K/uL (0.1-1.3); Basophils % 0.1 % (0-1.3); Hematocrit 39.7 % (39.6-49.0); Hemoglobin 13.1 g/dL (13.6-17.9); Lymphocytes % 6.8 % (15.3-44.8); MCH 30.3 pg (27.0-35.0); MPV 8.1 fL (7.6-11.3); Neutrophils % 89.1 % (41.7-73.7); Platelets 195 thou/uL (152-406); RBC Red Blood Cell Count 4.31 M/uL (4.33-5.43); Red Cell Distribution Width 13.3 % (12.1-15.2)
[2023-10-25 09:20] LABS: Anion Gap 7.7 mEq/L (5.0-15.0); Magnesium 1.8 mg/dL (1.6-2.4); Potassium 3.7 mEq/L (3.5-5.1)
[2023-10-25 09:23] LABS: Phosphorus 1.3 mg/dL (2.5-4.9)
--- NOTE | 2023-10-25 09:51 | P.PN ---
Date of Service: 10/25/23 Subjective Awake in bed this morning, conversing well, he reports no change to the swelling and ability to swallow Still unable to swallow saliva, spitting in a tissue Dobbhoff in place with TriggerMail running Speech therapy will revisit tomorrow ROS 10 point ROS as noted above, otherwise negative Physical Exam General: NAD, alert and oriented x 3, calm and cooperative HEENT: Atraumatic, PERRLA, Mucous membr. moist/pink Neck: Supple, 2+ carotid pulse no bruit, No LAD Respiratory: Clear to auscultation bilaterally, symmetrical chest wall movement, on RA Cardiovascular: Normal S1 S2, regular rate and rhythm, no murmur noted Gastrointestinal: Normal bowel sounds, No tenderness Musculoskeletal: No tenderness, 2+ peripheral pulses Integumentary: No rashes Neurological: Normal speech, Normal strength at 5/5 x4 extr, Normal tone, Normal affect, Other (moving all extremities, PLASTIC FIXTURE BUILDER intact) Vitals Reviewed Problem list Spondylosis with myelopathy of the C-spine S/P C3-C4, C4-C5, C5-C6, C6-C7 anterior cervical discectomy and fusion with instrumentation 4/1 History of CAD with previous CABG Hypertension History of prostate cancer Post pharyngeal wall swelling Plan: Spondylosis with myelopathy of the C-spine S/P C3-C4, C4-C5, C5-C6, C6-C7 anterior cervical discectomy and fusion with instrumentation 4/ Post pharyngeal wall swelling Orthospine surgery following PT consulted As needed pain medications Modified barium swallow- not able to swallow d/t post pharyngeal wall swelling Dobhoff with Talkable dexamethasone 8 mg IV every 8 hours x 3 doses- complete History of CAD with previous CABG Hypertension Continue home medications as appropriate Currently holding aspirin until cleared by orthospine surgery Holding PO medications, started hydralazine History of prostate cancer Outpatient follow up and management DVT PPX: SCD Code status: Full <Masha Valera - Last Filed: 10/25/23 18:09> Patient seen and examined. Plan of care discussed with Ms. Valera. Patient with oropharyngeal dysphagia. Status post C-spine surgery. Case discussed with surgeon Dr. Alcazar who mentioned dysphagia is a common finding after cervical spine surgery and recommended IV dexamethasone to decrease swelling/inflammation Patient prescribed IV dexamethasone for 24-hours. He is complaining of increased oral secretions and nasal congestion and attributed to allergy. Patient was started on cetirizine NG tube inserted yesterday and tube feeding initiated. Speech therapy to reevaluate tomorrow to see if patient's dysphagia has improved so we can start him on oral diet and remove the NG tube. Supportive measures. <be bradley - Last Filed: 10/25/23 18:45>
[2023-10-25] MEDS: HYDRALAZINE HCL 20 MG/ML VIAL IV PRN (09:58)
[2023-10-25 10:32] LABS: Blood Morphology Comment NOT SEEN (NOT SEEN); Platelet Estimate DECR; White Blood Cell Scan OK (OK)
[2023-10-25] MEDS: ONDANSETRON 4 MG/2 ML VIAL IV PRN (11:00)
[2023-10-25] MEDS: CETIRIZINE HCL 5 MG TABLET PO SCH (15:53)
[2023-10-26 05:23] LABS: Anion Gap 7.7 mEq/L (5.0-15.0); Potassium 3.7 mEq/L (3.5-5.1)
[2023-10-26] MEDS: POTASSIUM PHOS IN 0.9 % NACL 15 MMOL/250 ML BAG IV ONE (09:16)
--- NOTE | 2023-10-26 13:22 | P.PN ---
Patient seen and examined. Plan of care discussed with Ms. Valera. Plan of care also discussed with Dr. Alcazar. Dysphagia only slightly improved. Continue NG tube and tube feeding Supportive measures. Obtain CT soft tissue of neck Dr. Alcazar to further evaluate the dysphagia. <be bradley - Last Filed: 10/26/23 16:11> Date of Service: 10/26/23 Subjective Continue with Dobhoff for now, Randall finds it uncomfortable May be slight improvement to swallowing, but not enough for food and nutrition Speech therapy revisited this morning, will continue attempting ice chips. ROS 10 point ROS as noted above, otherwise negative Physical Exam General: NAD, AAOx3 x 3, calm and cooperative HEENT: Atraumatic, PERRLA, Mucous membr. moist/pink Neck: Supple, 2+ carotid pulse no bruit, swelling to left incisional area Respiratory: Clear to auscultation bilaterally, nonlabored breathing, on RA Cardiovascular: RRR, no murmur noted, S1 S2 present Gastrointestinal: Normal bowel sounds, No tenderness Musculoskeletal: No tenderness, 2+ peripheral pulses Integumentary: No rashes Neurological: Normal speech, Normal strength at 5/5 x4 extr, Normal tone, Normal affect, Other (moving all extremities, ACCOUNTANT HELPER intact) Vitals Reviewed Problem list Spondylosis with myelopathy of the C-spine S/P C3-C4, C4-C5, C5-C6, C6-C7 anterior cervical discectomy and fusion with instrumentation 4/ History of CAD with previous CABG Hypertension History of prostate cancer Post pharyngeal wall swelling Dysphagia Plan: Spondylosis with myelopathy of the C-spine S/P C3-C4, C4-C5, C5-C6, C6-C7 anterior cervical discectomy and fusion with instrumentation 4/ Post pharyngeal wall swelling Dysphagia Orthospine surgery following PT consulted As needed pain medications Modified barium swallow- not able to swallow d/t post pharyngeal wall swelling Dobhoff with jevity dexamethasone 8 mg IV every 8 hours x 3 doses- complete LAB ANIMAL TECHNICIAN consulted, not much improvement noted but will continue to trial ice chips CT soft tissue neck Hypophosphatemia Phos 2.0 Replete PRN monitor in AM labs History of CAD with previous CABG Hypertension Continue home medications as appropriate Currently holding aspirin until cleared by orthospine surgery Holding PO medications, started hydralazine History of prostate cancer Outpatient follow up and management DVT PPX: SCD Code status: Full <Masha Valera - Last Filed: 10/26/23 17:32>
--- NOTE | 2023-10-26 18:07 | RAD REPORT ---
EXAM DESCRIPTION: CT - Soft Tissue Neck W/Contr CLINICAL HISTORY: Acute dysphagia s/p cervical spine surgery Pain and swelling. COMPARISON: Soft Tissue Neck W/Contr dated 01/14/2020; Soft Tissue Neck W/Contr dated 12/24/2018; Neck Angio dated 03/25/[address] scans are performed using dose optimization technique as appropriate and may includ e automated exposure control or mA/KV adjustment according to patient size. FINDINGS: Postsurgical changes of ACDF of span C3-7 with interbody bone plugs. Posterior laminectomy is noted C3-5. Enteric tube is in place. Moderate fluid is seen along the left aspect of the deep neck extending from the left submandibular r egion to the base of the neck. No well-formed abscess. The fluid collection maximally measures 2.8 x 2.8 cm at the level of the left lobe of thyroid. Linear opacities are present in the upper lungs. Mild subcutaneous postsurgical air is present. IMPRESSION: Postsurgical changes of ACDF are noted as detailed. No immediate complication evident. M oderate fluid is seen along the left aspect of the deep neck without evidence of abscess.
[2023-10-27 04:38] LABS: Anion Gap 5.9 mEq/L (5.0-15.0); Phosphorus 2.1 mg/dL (2.5-4.9); Potassium 3.9 mEq/L (3.5-5.1)
--- NOTE | 2023-10-27 07:30 | P.PN ---
Patient seen and examined. Plan of care discussed with Ms. Valera. Patient reported bloating related to feeding. He has tolerated ice chips but with some difficulty. Patient seen and evaluated by spine surgeon Dr. Alcazar. Continue current treatment Ongoing swallow evaluation. Home medications are on hold. Hydralazine as needed for BP spikes. <be bradley - Last Filed: 10/27/23 16:42> Date of Service: 10/27/23 Subjective Dobhoff paused overnight, feeling bloated when turned back on this AM, will continue to pause for now ROS 10 point ROS as noted above, otherwise negative Physical Exam General: Alert and oriented x 3, no acute distress, calm and cooperative HEENT: Atraumatic, PERRLA, Mucous membr. moist/pink Neck: Supple, 2+ carotid pulse no bruit, swelling to left incisional area Respiratory: Symmetrical clear breath sounds on auscultation, on RA Cardiovascular: Normal S1-S2, no murmur noted, regular rate and rhythm Gastrointestinal: Normal bowel sounds, No tenderness, distended (obese) Musculoskeletal: No tenderness, 2+ peripheral pulses Integumentary: No rashes Neurological: Normal speech, Normal strength at 5/5 x4 extr, Normal tone, Normal affect, Other (moving all extremities, CHEMIST BIOLOGICAL intact) Vitals Reviewed Problem list Spondylosis with myelopathy of the C-spine S/P C3-C4, C4-C5, C5-C6, C6-C7 anterior cervical discectomy and fusion with instrumentation 4/ History of CAD with previous CABG Hypertension History of prostate cancer Post pharyngeal wall swelling Dysphagia Plan: Spondylosis with myelopathy of the C-spine S/P C3-C4, C4-C5, C5-C6, C6-C7 anterior cervical discectomy and fusion with instrumentation 4/ Post pharyngeal wall swelling Dysphagia Orthospine surgery following PT consulted As needed pain medications Modified barium swallow- not able to swallow d/t post pharyngeal wall swelling Dobhoff with jevity dexamethasone 8 mg IV every 8 hours x 3 doses- complete BUSINESS CONTROL MANAGER consulted, not much improvement noted but will continue to trial ice chips CT soft tissue neck reports "Postsurgical changes of ACDF are noted as detailed. No immediate complication evident. Moderate fluid is seen along the left aspect of the deep neck without evidence of abscess." Hypophosphatemia Phos 2.1 Replete PRN monitor in AM labs History of CAD with previous CABG Hypertension Continue home medications as appropriate Currently holding aspirin until cleared by orthospine surgery Holding PO medications, started hydralazine History of prostate cancer Outpatient follow up and management DVT PPX: SCD Code status: Full <Masha Valera - Last Filed: 10/27/23 18:01>
[2023-10-27] MEDS: POTASSIUM PHOS IN 0.9 % NACL 15 MMOL/250 ML BAG IV ONE (08:53)
[2023-10-27] MEDS: JEVITY 1.5 CAL LIQUID 1,000 ML BOT FT SCH (17:01)
[2023-10-28 06:39] LABS: Anion Gap 5.6 mEq/L (5.0-15.0); Phosphorus 2.1 mg/dL (2.5-4.9); Potassium 3.6 mEq/L (3.5-5.1)
--- NOTE | 2023-10-28 12:59 | P.PN ---
Date of Service: 10/28/23 Subjective Sleeping this AM, easily awakens Still with no BM and feeling bloated Holding TF for now, continuing water bolus ROS 10 point ROS as noted above, otherwise negative Physical Exam General: NAD, AAI x3 HEENT: Atraumatic, PERRLA, Mucous membr. moist/pink, Dobhoff Neck: Supple, 2+ carotid pulse no bruit, swelling to left incisional area Respiratory: Symmetrical clear breath sounds on auscultation, on RA Cardiovascular: RRR, S1-S2 present, no murmur noted Gastrointestinal: Bowel sounds active, soft and benign on palpation, No tenderness, distended (obese) Musculoskeletal: No tenderness, 2+ peripheral pulses Integumentary: No rashes Neurological: Normal speech, Normal strength at 5/5 x4 extr, Normal tone, Normal affect, Other (moving all extremities, NETWORK PROGRAM MANAGER intact) Vitals Reviewed Problem list Spondylosis with myelopathy of the C-spine S/P C3-C4, C4-C5, C5-C6, C6-C7 anterior cervical discectomy and fusion with instrumentation 4/ History of CAD with previous CABG Hypertension History of prostate cancer Post pharyngeal wall swelling Dysphagia Plan: Spondylosis with myelopathy of the C-spine S/P C3-C4, C4-C5, C5-C6, C6-C7 anterior cervical discectomy and fusion with instrumentation 10/22 Post pharyngeal wall swelling Dysphagia Orthospine surgery following PT consulted As needed pain medications Modified barium swallow- not able to swallow d/t post pharyngeal wall swelling Dobhoff with jevity- hold for now dexamethasone 8 mg IV every 8 hours x 3 doses- complete BUCKLE ASSEMBLER consulted, not much improvement noted but will continue to trial ice chips CT soft tissue neck reports "Postsurgical changes of ACDF are noted as detailed. No immediate complication evident. Moderate fluid is seen along the left aspect of the deep neck without evidence of abscess." Hypophosphatemia Phos 2.1 Replete PRN monitor in AM labs History of CAD with previous CABG Hypertension Continue home medications as appropriate Currently holding aspirin until cleared by orthospine surgery Holding PO medications, started hydralazine History of prostate cancer Outpatient follow up and management DVT PPX: SCD Code status: Full
--- NOTE | 2023-10-28 16:48 | RAD REPORT ---
EXAM DESCRIPTION: RAD - Chest Single View - 10/28/2023 4:43 pm CLINICAL HISTORY: chest discomfort COMPARISON: Abdomen 1 View (KUB) dated 10/24/2023; Abdomen 1 View (KUB) dated 10/24/2023; Chest Pa And L at (2 Views) dated 11/02/2022; Chest Pa And Lat (2 Views) dated 12/03/2021 FINDINGS: Lines: None. Lungs: No evidence of edema or pneumonia. Pleural: No significant pleural effusions or pneumothorax. Cardiac: The heart size is within normal limits. Mediastinum: Within normal limits. Bones: No acute fractures. Sternotomy. ACDF in the cervical spine. Other: None IMPRESSION: No acute cardiopulmonary disease.
[2023-10-28] MEDS ORDERED: GLYCERIN ADULT SUPP PR PRN (17:20)
[2023-10-28] MEDS: JEVITY 1.5 CAL LIQUID 1,000 ML BOT FT SCH (17:37)
[2023-10-28] MEDS ORDERED: JEVITY 1.5 CAL LIQUID 1,000 ML BOT FT SCH ×2 (18:00)
[2023-10-28] MEDS: DOCUSATE NA 100 MG CAP PO SCH (20:28)
--- NOTE | 2023-10-29 06:45 | P.PN ---
Date of Service: 10/29/23 Subjective Awake and feeling well Still unable to swallow safely, likely a coordination problem no new complaints ROS 10 point ROS as noted above, otherwise negative Physical Exam General: NAD, AAO x3 HEENT: Atraumatic, PERRLA, Mucous membr. 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/P C3-C4, C4-C5, C5-C6, C6-C7 anterior cervical discectomy and fusion with instrumentation 4/ History of CAD with previous CABG Hypertension History of prostate cancer Post pharyngeal wall swelling Dysphagia Plan: Spondylosis with myelopathy of the C-spine S/P C3-C4, C4-C5, C5-C6, C6-C7 anterior cervical discectomy and fusion with instrumentation 10/22 Post pharyngeal wall swelling Dysphagia Orthospine surgery following PT consulted As needed pain medications Modified barium swallow- not able to swallow d/t post pharyngeal wall swelling Dobhoff with jevity- hold for now dexamethasone 8 mg IV every 8 hours x 3 doses- complete HEAVY DUTY PRESS OPERATOR consulted, Requesting therapy Monday CT soft tissue neck reports "Postsurgical changes of ACDF are noted as detailed. No immediate complication evident. Moderate fluid is seen along the left aspect of the deep neck without evidence of abscess." Chest xray reports "No acute cardiopulmonary disease." Hypophosphatemia Phos 2.2 Replete PRN monitor in AM labs History of CAD with previous CABG Hypertension Continue home medications as appropriate Currently holding aspirin until cleared by orthospine surgery Holding PO medications, started hydralazine History of prostate cancer Outpatient follow up and management DVT PPX: SCD Code status: Full
[2023-10-29 07:38] LABS: Anion Gap 6.6 mEq/L (5.0-15.0); Magnesium 1.9 mg/dL (1.6-2.4); Phosphorus 2.2 mg/dL (2.5-4.9); Potassium 3.6 mEq/L (3.5-5.1)
[2023-10-29] MEDS: POTASSIUM PHOS IN 0.9 % NACL 15 MMOL/250 ML BAG IV ONE (10:31)
[2023-10-29] MEDS: HYDROCODONE/APAP 10/325 TAB PO PRN (16:59)
--- NOTE | 2023-10-30 07:46 | P.PN ---
Date of Service: 10/30/23 Subjective Awake, voice has improved the last few days Dobhoff running when he can handle it Very patient with this situation ROS 10 point ROS as noted above, otherwise negative Physical Exam General: Awake alert and oriented, no acute distress HEENT: Atraumatic, PERRLA, Mucous membr. 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 Alcazar PT consulted As needed pain medications Modified barium swallow- not able to swallow d/t post pharyngeal wall swelling Dobhoff with jevity- hold for now dexamethasone 8 mg IV every 8 hours x 3 doses- second round DIVISION ORDER TECHNICIAN consulted, Requesting therapy Wednesday 10/25 CT soft tissue neck reports "Postsurgical changes of ACDF are noted as detailed. No immediate complication evident. Moderate fluid is seen along the left aspect of the deep neck without evidence of abscess." 10/29 CT soft tissue reports seroma Chest xray reports "No acute cardiopulmonary disease." Hypernatremia Na 149 D5W 500 ml given Monitor in AM labs Hypophosphatemia Phos 2.3 Replete PRN monitor in AM labs History of CAD with previous CABG Hypertension Continue home medications as appropriate Currently holding aspirin until cleared by orthospine surgery Holding PO medications, started hydralazine History of prostate cancer Outpatient follow up and management DVT PPX: SCD Code status: Full
[2023-10-30 08:16] LABS: Anion Gap 10.5 mEq/L (5.0-15.0); Magnesium 2.1 mg/dL (1.6-2.4); Phosphorus 2.3 mg/dL (2.5-4.9); Potassium 4.5 mEq/L (3.5-5.1)
[2023-10-30] MEDS: dexAMETHasone 10 MG/ML VIAL IV SCH (11:37)
--- NOTE | 2023-10-30 12:43 | RAD REPORT ---
EXAM DESCRIPTION: CT - Soft Tissue Neck W/Contr CLINICAL HISTORY: Submandibular fluid collection. S/p cervical spine surgery COMPARISON: Soft Tissue Neck W/Contr dated 10/26/2023; Soft Tissue Neck W/Contr dated 01/14/2020; Soft Tissue Neck W/Contr dated 12/24/2018; Neck Angio dated 03/25/2018 TECHNIQUE: Thin axial CT images of the neck, performed following intravenous administration of 100 mL Isovue-300. Multiplanar reformats were generated and reviewed. All CT scans are performed using dose optimization technique as appropriate and may include automated exposure control or mA/KV adjustment according to patient size. FINDINGS: Progressive fluid accumulation along the left deep cervical spaces, extending deep to the left strap muscles, medial to the left carotid space, and lateral to the thyroid gland and larynx, di ssecting posteriorly towards the incision, the collection measures 5.9 x 3.5 cm in greatest axial dim ensions, and 9.0 cm in greatest craniocaudal extent. Distension of the prevertebral space opposite th e level of lower C2, at the superior level of the fixation hardware, measuring 1.3 cm in thickness. I ll-defined fluid accumulation at the level of the inferior extent of the fusion hardware opposite C7- T1, measuring 2.2 cm in thickness, displacing the esophagus anteriorly. Minimal marginal enhancement. Fluid opacification along the posterior decompressive surgical tract opposite C3-C5 again seen. Nasopharyngeal tissues are normal in appearance. Fossa Rosenmller are normal. Parapharyngeal fat triangles are symmetric. Tongue base structures are normal. Epiglottis and aryepiglottic folds are normal. Piriform sinuses are well aerated. The vocal cords are normal in appearance. No suspicious adenopathy. Salivary glands are normal in appearance. Upper lung cruz again demonstrate streaky central opacities/scarring. Included intracranial content s are unremarkable. Unchanged alignment of anterior cervical fixation hardware spanning C3- C7. IMPRESSION: Enlarging and better defined fluid collection along the left deep cervical spaces, with areas of ill-defined fluid distention in the prevertebral space at the superior and inferior aspects of the fixation hardware. Findings favor an enlarging seroma. Superimposed infection is considered le ss likely although would be difficult to exclude. Unchanged appearance of fluid opacification along the posterior surgical tract for the decompression opposite C3-C5.
[2023-10-30] MEDS ORDERED: SODIUM PHOSPHATE 15 MM in NA CHLORIDE 0.9% 250 ML IV SCH (14:00)
[2023-10-30] MEDS: POTASS/SODIUM PHOSPHATE 1 PKT POWD.PACK FT ONE (15:00)
[2023-10-30] MEDS: D5W 500 ML IV SCH (15:32)
[2023-10-30 20:27] LABS: Magnesium 1.9 mg/dL (1.6-2.4); Phosphorus 1.8 mg/dL (2.5-4.9)
[2023-10-31 03:59] LABS: Anion Gap 10.8 mEq/L (5.0-15.0); Potassium 3.8 mEq/L (3.5-5.1)
[2023-10-31] MEDS: POTASSIUM 25 MEQ EFFERV TAB PO ONE (09:36)
--- NOTE | 2023-10-31 13:33 | P.PN ---
Date of Service: 10/31/23 Subjective Still unable to swallow clear liquids or secretions otherwise doing well, ambulating ROS 10 point ROS as noted above, otherwise negative Physical Exam General: Awake alert and oriented, no acute distress HEENT: Atraumatic, PERRLA, Mucous membr. 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 Alcazar PT consulted Has now completed 2 rounds of Decadron 8 mg by mouth 3 times daily for 3 doses Still with no improvement in swallowing 10/25 CT soft tissue neck reports "Postsurgical changes of ACDF are noted as detailed. No immediate complication evident. Moderate fluid is seen along the left aspect of the deep neck without evidence of abscess." 10/29 CT soft tissue reports 5.9 x 3.5 cm x 9 cm fluid collection along the left deep cervical spaces with areas of ill-defined fluid distention in the prevertebral space at the superior and inferior aspects of the fixation hardware displacing the esophagus anteriorly-favored to be a seroma Patient having difficulty tolerating continuous tube feeds. Reports feeling bloated with small volumes frequently Attempted bolus feedings as well, patient had similar bloated feeling when given over 20 to 30 minutes Discussed possibly transitioning to bolus feeds with 237 mL of Jevity 1.5 five times every 24 hours given over 30 minutes 1 hour with 80 mL free water flushes before and after-patient declined wants to continue using continuous tube feeds and starting/stopping when he wants Feels he is getting enough nutrition but this is difficult to evaluate Discuss further with orthospine surgery to determine plan Possible surgical intervention versus need for possible PEG tube Hypernatremia Improved, continue IV fluids Plan to discontinue IV fluids tomorrow Monitor chemistry daily Hypophosphatemia Protocol in place History of CAD with previous CABG Hypertension History of prostate cancer Continue medications as prescribed Aspirin on hold at this time DVT PPX: SCD Code status: Full Dispo: 2+ days
[2023-11-01 03:40] LABS: Absolute Lymphocytes (CBC) 0.8 K/uL (0.7-4.9); Absolute Monocytes 0.8 K/uL (0.1-1.3); Absolute Neutrophil 8.8 K/uL (1.8-8.0); Eosinophils % 0.1 % (0-4.4); Hematocrit 39.2 % (39.6-49.0); Hemoglobin 13.5 g/dL (13.6-17.9); Lymphocytes % 7.8 % (15.3-44.8); MCHC 34.4 g/dL (32.0-36.0); MCV 90.2 fL (80-100); MPV 8.3 fL (7.6-11.3); Monocytes % 7.7 % (3.3-12.3); Neutrophils % 84.4 % (41.7-73.7); Platelets 187 thou/uL (152-406); RBC Red Blood Cell Count 4.35 M/uL (4.33-5.43); Red Cell Distribution Width 13.3 % (12.1-15.2)
[2023-11-01 03:56] LABS: Anion Gap 8.2 mEq/L (5.0-15.0); Potassium 4.2 mEq/L (3.5-5.1)
[2023-11-01] MEDS: THROMBIN 5000 UNITS/VIAL TOP ONE (06:08)
[2023-11-01] MEDS ORDERED: LIDOCAINE 1% MPF 5 ML VIAL ONE (06:18)
[2023-11-01] MEDS ORDERED: ONDANSETRON 4 MG/2 ML VIAL ONE (06:18)
[2023-11-01] MEDS ORDERED: ROCURONIUM 50 MG/5 ML VIAL IV ONE (06:18)
[2023-11-01] MEDS ORDERED: propofoL 200 MG/20 ML VIAL IV ONE (06:18)
[2023-11-01] MEDS ORDERED: dexAMETHasone 10 MG/ML VIAL ONE (06:18)
[2023-11-01] MEDS ORDERED: FENTANYL CITR 100 MCG/2 ML ONE (06:19)
[2023-11-01] MEDS ORDERED: MIDAZOLAM HCL 2 MG/2 ML INJ ONE (06:19)
[2023-11-01] MEDS ORDERED: Mastisol Adhesive Liq ONE (06:35)
[2023-11-01] MEDS: Ringers Lactate 1,000 ML IV ONE (06:40)
[2023-11-01] MEDS: CEFAZOLIN SODIUM 2 GM/VIAL ONE (07:17)
[2023-11-01] MEDS: CEFAZOLIN SODIUM 1 GM/VIAL ONE (07:35)
[2023-11-01] MEDS: VANCOMYCIN 1 GM/VIAL ONE (07:50)
[2023-11-01] MEDS ORDERED: NEOSTIGMINE 1 MG/ML -10 ML VIAL ONE (07:53)
[2023-11-01] MEDS ORDERED: GLYCOPYRROLATE 0.2 MG/ML SYR ONE (07:53)
[2023-11-01] MEDS: ONDANSETRON 4 MG/2 ML VIAL ONE (08:47)
--- NOTE | 2023-11-01 13:17 | P.PN ---
Date of Service: 11/01/23 Subjective Had I&D of seroma performed today Feels like he is tolerating secretions a little better Accidentally pulled out Dobbhoff last night ROS 10 point ROS as noted above, otherwise negative Physical Exam General: Awake alert and oriented, no acute distress HEENT: Atraumatic, PERRLA, Mucous membr. moist/pink, Dobhoff, some edema Neck: Supple, 2+ carotid pulse no bruit, swelling to left incisional area, SARY drain in place serosanguineous drainage Respiratory: clear breath sounds on auscultation, no labored breathing, on RA Cardiovascular: RRR, S1-S2 present, no murmur noted Gastrointestinal: soft and benign on palpation, bowel sounds present, NT, distended (obese) Musculoskeletal: No tenderness, 2+ peripheral pulses Integumentary: No rashes Neurological: Normal speech, Normal strength at 5/5 x4 extr, Normal tone, Normal affect, Other (moving all extremities, TIMBER SETTER intact) Vitals Reviewed Problem list Spondylosis with myelopathy of the C-spine S/P C3-C4, C4-C5, C5-C6, C6-C7 anterior cervical discectomy and fusion with instrumentation 10/22 Post pharyngeal wall swelling/possible seroma status post incision and drainage 10/31 Dysphagia Hypernatremia Hypophosphatemia History of CAD with previous CABG Hypertension History of prostate cancer Plan: Spondylosis with myelopathy of the C-spine S/P C3-C4, C4-C5, C5-C6, C6-C7 anterior cervical discectomy and fusion with instrumentation 10/22 Post pharyngeal wall swelling/possible seroma-status post incision and drainage 10/31 Dysphagia Orthospine surgery following- Dr. Alcazar PT consulted 10/25 CT soft tissue neck reports "Postsurgical changes of ACDF are noted as detailed. No immediate complication evident. Moderate fluid is seen along the left aspect of the deep neck without evidence of abscess." 10/29 CT soft tissue reports 5.9 x 3.5 cm x 9 cm fluid collection along the left deep cervical spaces with areas of ill-defined fluid distention in the prevertebral space at the superior and inferior aspects of the fixation hardware displacing the esophagus ant eriorly-favored to be a seroma Incision and drainage performed 10/31, to be evaluated by speech therapy to further determine needs for nutrition Doing well after surgery, SARY drain in place to left anterior neck Hypernatremia Improved Monitor chemistry daily Hypophosphatemia Protocol in place History of CAD with previous CABG Hypertension History of prostate cancer Continue medications as prescribed Aspirin on hold at this time DVT PPX: SCD Code status: Full Dispo: 2+ days <Georges Acosta - Last Filed: 11/01/23 13:14> DOS: 11/01/23 Patient seen and examined on rounds this morning with ECONOMIC ANALYST Karla. I performed a substantial part of the MDM during this patient's care today as noted above in the plan of care. I agree with plan of care as noted above with the following additions / corrections: s/p I&D with SARY drain placement of seroma. feeling better post-op able to swallow saliva/sips speech to re-eval has celina from surgery ~3 weeks ago, will confirm with Dr. Alcazar and remove them <Carson Marie - Last Filed: 11/02/23 21:39>
[2023-11-02 03:34] LABS: Absolute Lymphocytes (CBC) 0.8 K/uL (0.7-4.9); Absolute Neutrophil 7.6 K/uL (1.8-8.0); Basophils % 0.1 % (0-1.3); Hematocrit 39.7 % (39.6-49.0); Hemoglobin 13.4 g/dL (13.6-17.9); Lymphocytes % 8.7 % (15.3-44.8); MCHC 33.9 g/dL (32.0-36.0); MCV 91.5 fL (80-100); MPV 8.3 fL (7.6-11.3); Monocytes % 10.7 % (3.3-12.3); Neutrophils % 80.5 % (41.7-73.7); Nucleated Red Blood Cells % 0.1 % (0-0); Platelets 178 thou/uL (152-406); RBC Red Blood Cell Count 4.33 M/uL (4.33-5.43); Red Cell Distribution Width 13.7 % (12.1-15.2)
[2023-11-02 03:46] LABS: Anion Gap 8.9 mEq/L (5.0-15.0); Potassium 3.9 mEq/L (3.5-5.1)
[2023-11-02 04:30] LABS: Phosphorus 1.8 mg/dL (2.5-4.9)
--- NOTE | 2023-11-02 10:28 | P.PN ---
Date of Service: 11/02/23 Subjective tolerating clear liquids Still with SARY drain in place concerned about posterior celina in place ROS 10 point ROS as noted above, otherwise negative Physical Exam General: Awake alert and oriented, no acute distress HEENT: Atraumatic, PERRLA, Mucous membr. moist/pink, Dobhoff, some edema Neck: Supple, 2+ carotid pulse no bruit, swelling to left incisional area, SARY drain in place serosanguineous drainage Respiratory: clear breath sounds on auscultation, no labored breathing, on RA Cardiovascular: RRR, S1-S2 present, no murmur noted Gastrointestinal: soft and benign on palpation, bowel sounds present, NT, distended (obese) Musculoskeletal: No tenderness, 2+ peripheral pulses Integumentary: No rashes Neurological: Normal speech, Normal strength at 5/5 x4 extr, Normal tone, Normal affect, Other (moving all extremities, SECURITY INTELLIGENCE ANALYST intact) Vitals Reviewed Problem list Spondylosis with myelopathy of the C-spine S/P C3-C4, C4-C5, C5-C6, C6-C7 anterior cervical discectomy and fusion with instrumentation 10/22 Post pharyngeal wall swelling/possible seroma status post incision and drainage 10/31 Dysphagia Hypernatremia Hypophosphatemia History of CAD with previous CABG Hypertension History of prostate cancer Plan: Spondylosis with myelopathy of the C-spine S/P C3-C4, C4-C5, C5-C6, C6-C7 anterior cervical discectomy and fusion with instrumentation 10/22 Post pharyngeal wall swelling/possible seroma-status post incision and drainage 10/31 Dysphagia Orthospine surgery following- Dr. Alcazar PT consulted 10/25 CT soft tissue neck reports "Postsurgical changes of ACDF are noted as detailed. No immediate complication evident. Moderate fluid is seen along the left aspect of the deep neck without evidence of abscess." 10/29 CT soft tissue reports 5.9 x 3.5 cm x 9 cm fluid collection along the left deep cervical spaces with areas of ill-defined fluid distention in the prevertebral space at the superior and inferior aspects of the fixation hardware displacing the esophagus anteriorly-favored to be a seroma Incision and drainage performed 10/31, to be evaluated by speech therapy to further determine needs for nutrition Doing well after surgery, SARY drain in place to left anterior neck Tolerating clear liquids 11/01 Will try ensures for nutrition advance diet as tolerated Hypernatremia Improved Monitor chemistry daily Hypophosphatemia Protocol in place History of CAD with previous CABG Hypertension History of prostate cancer Continue medications as prescribed Aspirin on hold at this time DVT PPX: SCD Code status: Full Dispo: 2+ days <Georges Acosta - Last Filed: 11/02/23 10:26> Patient seen and examined on rounds this morning with WAITSTAFF Karla. I performed a substantial part of the MDM during this patient's care today as noted above in the plan of care. I agree with plan of care as noted above with the following additions / corrections: Doing better, tolerated liquids had some minor difficulty with jello - felt like it would get "hung up" when trying to swallow wanting to stick with liquids for now discussed trying ensures, pt states he drinks 1 every morning prior to surgery, and would like to try ensures advance diet as tolerated remove celina today plan for SARY drain to be removed prior to dc dc once able to take enough liquids / adequate hydration/nutrition with consistent improvement <Carson Marie - Last Filed: 11/02/23 21:41>
[2023-11-02] MEDS: ENSURE ENLIVE 237 ML CAN PO ONE (11:00)
[2023-11-02] MEDS: POTASSIUM PHOS IN 0.9 % NACL 15 MMOL/250 ML BAG IV ONE (13:12)
[2023-11-02] MEDS: ENSURE ENLIVE 237 ML CAN PO SCH (20:54)
[2023-11-03 03:58] LABS: Albumin 2.7 g/dL (3.4-5.0); Albumin/Globulin Ratio 0.8 (1.1-1.8); Anion Gap 6.8 mEq/L (5.0-15.0); Bilirubin Total 0.9 mg/dL (0.2-1.0); Globulin 3.5 g/dL (2.3-3.5); Phosphorus 1.9 mg/dL (2.5-4.9); Potassium 3.8 mEq/L (3.5-5.1); Protein, Total 6.2 g/dL (6.4-8.2)
[2023-11-03] MEDS: POTASS/SODIUM PHOSPHATE 1 PKT POWD.PACK PO SCH (10:00)
--- NOTE | 2023-11-03 13:14 | P.PN ---
Date of Service: 11/03/23 Subjective tolerating clear liquids Still with SARY drain in place concerned about posterior celina in place ROS 10 point ROS as noted above, otherwise negative Physical Exam General: Awake alert and oriented, no acute distress HEENT: Atraumatic, PERRLA, Mucous membr. moist/pink Neck: Supple, 2+ carotid pulse no bruit, swelling to left incisional area, Dressing in place to left anterior neck CDI Respiratory: clear breath sounds on auscultation, no labored breathing, on RA Cardiovascular: RRR, S1-S2 present, no murmur noted Gastrointestinal: soft and benign on palpation, bowel sounds present, NT, distended (obese) Musculoskeletal: No tenderness, 2+ peripheral pulses Integumentary: No rashes Neurological: Normal speech, Normal strength at 5/5 x4 extr, Normal tone, Normal affect, Other (moving all extremities, MANUFACTURING MECHANIC intact) Vitals Reviewed Problem list Spondylosis with myelopathy of the C-spine S/P C3-C4, C4-C5, C5-C6, C6-C7 anterior cervical discectomy and fusion with instrumentation 10/22 Post pharyngeal wall swelling/possible seroma status post incision and drainage 10/31 Dysphagia Hypernatremia Hypophosphatemia History of CAD with previous CABG Hypertension History of prostate cancer Plan: Spondylosis with myelopathy of the C-spine S/P C3-C4, C4-C5, C5-C6, C6-C7 anterior cervical discectomy and fusion with instrumentation 10/22 Post pharyngeal wall swelling/possible seroma-status post incision and drainage 10/31 Dysphagia Orthospine surgery following- Dr. Alcazar PT consulted- doing well with PT Had post op seroma Incision and drainage performed 10/31 Doing well after surgery, SARY drain in place to left anterior neck-pt accidentally pulled 11/01 Tolerating clear liquids 11/01 added watered down ensure 11/02 advance diet as tolerated Speech following Hypernatremia Improved Monitor chemistry daily Hypophosphatemia Protocol in place History of CAD with previous CABG Hypertension History of prostate cancer Continue medications as prescribed Aspirin on hold at this time DVT PPX: SCD Code status: Full Dispo: 2+ days <Georges Acosta - Last Filed: 11/03/23 13:12> Patient seen and examined on rounds this morning with RING ROLLING MACHINE OPERATOR Karla. I performed a substantial part of the MDM during this patient's care today as noted above in the plan of care. I agree with plan of care as noted above with the following additions / corrections: doing better tolerating liquids slowly, a few sips of ensure, took some broth ok no new/worsening symptoms accidentally pulled SARY Drain last night no increase in swelling of neck ADAT <Carson Marie - Last Filed: 11/03/23 18:19>
[2023-11-03] MEDS: ENSURE CLEAR 200 ML CAN PO SCH (14:00)
[2023-11-04 03:27] LABS: Hemoglobin 13.8 g/dL (13.6-17.9); MCH 30.8 pg (27.0-35.0); MCHC 33.7 g/dL (32.0-36.0); MCV 91.4 fL (80-100); MPV 8.1 fL (7.6-11.3); Platelets 149 thou/uL (152-406); RBC Red Blood Cell Count 4.48 M/uL (4.33-5.43); Red Cell Distribution Width 13.8 % (12.1-15.2)
[2023-11-04 03:44] LABS: Anion Gap 10.7 mEq/L (5.0-15.0); Potassium 3.7 mEq/L (3.5-5.1)
[2023-11-04] MEDS: POTASS/SODIUM PHOSPHATE 1 PKT POWD.PACK PO SCH (08:00)
--- NOTE | 2023-11-04 12:16 | P.PN ---
Date of Service: 11/04/23 Subjective tolerating clear liquids SARY drain and posterior celina out not liking broth, not taking much in aside from liquids ROS 10 point ROS as noted above, otherwise negative Physical Exam General: Awake alert and oriented, no acute distress HEENT: Atraumatic, PERRLA, Mucous membr. moist/pink Neck: Supple, 2+ carotid pulse no bruit, swelling to left incisional area, Dressing in place to left anterior neck CDI Respiratory: clear breath sounds on auscultation, no labored breathing, on RA Cardiovascular: RRR, S1-S2 present, no murmur noted Gastrointestinal: soft and benign on palpation, bowel sounds present, NT, distended (obese) Musculoskeletal: No tenderness, 2+ peripheral pulses Integumentary: No rashes Neurological: Normal speech, Normal strength at 5/5 x4 extr, Normal tone, Normal affect, Other (moving all extremities, CUSTOMER OPERATIONS ASSOCIATE intact) Vitals Reviewed Problem list Spondylosis with myelopathy of the C-spine S/P C3-C4, C4-C5, C5-C6, C6-C7 anterior cervical discectomy and fusion with instrumentation 10/22 Post pharyngeal wall swelling/possible seroma status post incision and drainage 10/31 Dysphagia Hypernatremia Hypophosphatemia History of CAD with previous CABG Hypertension History of prostate cancer Plan: Spondylosis with myelopathy of the C-spine S/P C3-C4, C4-C5, C5-C6, C6-C7 anterior cervical discectomy and fusion with instrumentation 10/22 Post pharyngeal wall swelling/possible seroma-status post incision and drainage 10/31 Dysphagia Orthospine surgery following- Dr. Alcazar PT consulted- doing well with PT Had post op seroma Incision and drainage performed 10/31 Doing well after surgery, SARY drain no longer in place to left anterior neck-pt accidentally pulled 11/01 Tolerating clear liquids 11/01 added watered down ensure 11/02 which patient did not tolerate well advance diet as tolerated Speech following Hypernatremia Improved Monitor chemistry daily Hypophosphatemia Protocol in place History of CAD with previous CABG Hypertension History of prostate cancer Continue medications as prescribed Aspirin on hold at this time DVT PPX: SCD Code status: Full Dispo: 2+ days
[2023-11-05 04:28] LABS: Hematocrit 41.5 % (39.6-49.0); MCH 30.8 pg (27.0-35.0); MCHC 33.8 g/dL (32.0-36.0); MCV 91.2 fL (80-100); Platelets 156 thou/uL (152-406); RBC Red Blood Cell Count 4.55 M/uL (4.33-5.43); Red Cell Distribution Width 13.7 % (12.1-15.2)
[2023-11-05 04:49] LABS: Anion Gap 7.5 mEq/L (5.0-15.0); Phosphorus 1.9 mg/dL (2.5-4.9); Potassium 3.5 mEq/L (3.5-5.1)
[2023-11-05] MEDS: POTASS/SODIUM PHOSPHATE 1 PKT POWD.PACK PO SCH (09:00)
--- NOTE | 2023-11-05 11:25 | P.PN ---
Date of Service: 11/05/23 Subjective tolerating clear liquids SARY drain and posterior celina out Was able to drink ensure clear last night and this morning Now drinking water with straw ROS 10 point ROS as noted above, otherwise negative Physical Exam General: Awake alert and oriented, no acute distress HEENT: Atraumatic, PERRLA, Mucous membr. moist/pink Neck: Supple, 2+ carotid pulse no bruit, swelling to left incisional area, Dressing in place to left anterior neck CDI Respiratory: clear breath sounds on auscultation, no labored breathing, on RA Cardiovascular: RRR, S1-S2 present, no murmur noted Gastrointestinal: soft and benign on palpation, bowel sounds present, NT, distended (obese) Musculoskeletal: No tenderness, 2+ peripheral pulses Integumentary: No rashes Neurological: Normal speech, Normal strength at 5/5 x4 extr, Normal tone, Normal affect, Other (moving all extremities, MANAGER PEST intact) Vitals Reviewed Problem list Spondylosis with myelopathy of the C-spine S/P C3-C4, C4-C5, C5-C6, C6-C7 anterior cervical discectomy and fusion with instrumentation 10/22 Post pharyngeal wall swelling/possible seroma status post incision and drainage 10/31 Dysphagia Hypernatremia Hypophosphatemia History of CAD with previous CABG Hypertension History of prostate cancer Plan: Spondylosis with myelopathy of the C-spine S/P C3-C4, C4-C5, C5-C6, C6-C7 anterior cervical discectomy and fusion with instrumentation 10/22 Post pharyngeal wall swelling/possible seroma-status post incision and drainage 10/31 Dysphagia Orthospine surgery following- Dr. Alcazar PT consulted- doing well with PT Had post op seroma Incision and drainage performed 10/31 Doing well after surgery, SARY drain no longer in place to left anterior neck-pt accidentally pulled 11/01 Tolerating clear liquids 11/01 added watered down ensure 11/02 which patient did not tolerate well Drank ensure clear 11/06, 11/04 and trying full liquids today having some slow improvement now Speech following Hypernatremia Improved Monitor chemistry daily Hypophosphatemia Protocol in place History of CAD with previous CABG Hypertension History of prostate cancer Continue medications as prescribed Aspirin on hold at this time DVT PPX: SCD Code status: Full Dispo: 2+ days <Georges Acosta - Last Filed: 11/05/23 11:24> DOS (11/05/23) Patient seen and examined on rounds this morning with PLASTICS SUPERVISOR Karla. I performed a substantial part of the MDM during this patient's care today as noted above in the plan of care. I agree with plan of care as noted above with the following additions / corrections: improving, tolerated ensurex2, tolerating water unable to swallow solids does not feel swelling is worsening otherwise doing ok <Carson Marie - Last Filed: 11/06/23 22:31>
[2023-11-06 06:00] LABS: Hematocrit 41.5 % (39.6-49.0); Hemoglobin 14.1 g/dL (13.6-17.9); MCH 30.9 pg (27.0-35.0); MCHC 33.9 g/dL (32.0-36.0); MCV 91.1 fL (80-100); MPV 8.1 fL (7.6-11.3); Platelets 162 thou/uL (152-406); RBC Red Blood Cell Count 4.56 M/uL (4.33-5.43); Red Cell Distribution Width 13.5 % (12.1-15.2)
[2023-11-06 06:11] LABS: Anion Gap 9.1 mEq/L (5.0-15.0); Phosphorus 2.3 mg/dL (2.5-4.9); Potassium 3.1 mEq/L (3.5-5.1)
[2023-11-06] MEDS: POTASSIUM 25 MEQ EFFERV TAB PO ONE ×3 (08:38→21:24)
[2023-11-06] MEDS ORDERED: POTASSIUM PHOS IN 0.9 % NACL 15 MMOL/250 ML BAG IV ONE (09:00)
[2023-11-06] MEDS: POTASS/SODIUM PHOSPHATE 1 PKT POWD.PACK PO SCH (10:34)
--- NOTE | 2023-11-06 12:45 | P.PN ---
Date of Service: 11/06/23 Subjective Still without appetite Some improvement in PO tolerance ROS 10 point ROS as noted above, otherwise negative Physical Exam General: Awake alert and oriented, no acute distress HEENT: Atraumatic, PERRLA, Mucous membr. moist/pink Neck: Supple, 2+ carotid pulse no bruit, swelling to left incisional area, Dressing in place to left anterior neck CDI Respiratory: clear breath sounds on auscultation, no labored breathing, on RA Cardiovascular: RRR, S1-S2 present, no murmur noted Gastrointestinal: soft and benign on palpation, bowel sounds present, NT, disten ded (obese) Musculoskeletal: No tenderness, 2+ peripheral pulses Integumentary: No rashes Neurological: Normal speech, Normal strength at 5/5 x4 extr, Normal tone, Normal affect, Other (moving all extremities, BAIT PACKER intact) Vitals Reviewed Problem list Spondylosis with myelopathy of the C-spine S/P C3-C4, C4-C5, C5-C6, C6-C7 anterior cervical discectomy and fusion with instrumentation 10/22 Post pharyngeal wall swelling/possible seroma status post incision and drainage 10/31 Dysphagia Hypernatremia Hypophosphatemia History of CAD with previous CABG Hypertension History of prostate cancer Plan: Spondylosis with myelopathy of the C-spine S/P C3-C4, C4-C5, C5-C6, C6-C7 anterior cervical discectomy and fusion with instrumentation 10/22 Post pharyngeal wall swelling/possible seroma-status post incision and drainage 10/31 Dysphagia Orthospine surgery following- Dr. Alcazar PT consulted- doing well with PT Had post op seroma Incision and drainage performed 10/31 Doing well after surgery, SARY drain no longer in place to left anterior neck-pt accidentally pulled 11/01 Tolerating clear liquids 11/01 added watered down ensure 11/02 which patient did not tolerate well Drank ensure clear 11/03, 11/04 Full liquid diet ordered but patient not eating due to lack of appetite able to drink 2 ensure clear yesterday and trying for 2 today encourage PO intake as tolerated having some slow improvement now Speech following Hypernatremia Improved Monitor chemistry daily Hypophosphatemia Protocol in place History of CAD with previous CABG Hypertension History of prostate cancer Continue medications as prescribed Aspirin on hold at this time DVT PPX: SCD Code status: Full Dispo: 1-2 days
[2023-11-07 03:44] LABS: Hematocrit 41.2 % (39.6-49.0); Hemoglobin 13.9 g/dL (13.6-17.9); MCH 30.5 pg (27.0-35.0); MCHC 33.8 g/dL (32.0-36.0); MCV 90.4 fL (80-100); MPV 8.2 fL (7.6-11.3); Platelets 138 thou/uL (152-406); RBC Red Blood Cell Count 4.56 M/uL (4.33-5.43); Red Cell Distribution Width 13.6 % (12.1-15.2)
[2023-11-07 03:57] LABS: Anion Gap 10.4 mEq/L (5.0-15.0); Phosphorus 2.5 mg/dL (2.5-4.9); Potassium 3.4 mEq/L (3.5-5.1)
[2023-11-07] MEDS: POTASSIUM 25 MEQ EFFERV TAB PO ONE (09:57)
[2023-11-07] MEDS: POTASS/SODIUM PHOSPHATE 1 PKT POWD.PACK PO SCH (09:59)
--- NOTE | 2023-11-07 19:40 | P.PN ---
Date of Service: 11/07/23 Subjective Continues to feel uncomfortable when trying to swallow Attempting the head turn option to help with his swallowing. Working with ROLL MACHINE OPERATOR. ROS 10 point ROS as noted above, otherwise negative Physical Exam General: AAOx3, NAD, conversing well HEENT: Atraumatic, PERRLA, Mucous membr. moist/pink Neck: Supple, 2+ carotid pulse no bruit, swelling to left incisional area, Dressing in place to left anterior neck CDI Respiratory: clear breath sounds on auscultation, symmetrical chest wall movement, on RA Cardiovascular: Regular rate and rhythm, S1-S2 present, no murmur noted Gastrointestinal: soft and benign on palpation, bowel sounds present, NT, distended (obese) Musculoskeletal: No tenderness, 2+ peripheral pulses Integumentary: No rashes Neurological: Normal speech, Normal strength at 5/5 x4 extr, Normal tone, Normal affect, Other (moving all extremities, PIECE MAKER intact) Vitals Reviewed Problem list Spondylosis with myelopathy of the C-spine S/P C3-C4, C4-C5, C5-C6, C6-C7 anterior cervical discectomy and fusion with instrumentation 10/22 Post pharyngeal wall swelling/possible seroma status post incision and drainage 10/31 Dysphagia Hypernatremia Hypophosphatemia History of CAD with previous CABG Hypertension History of prostate cancer Plan: Spondylosis with myelopathy of the C-spine S/P C3-C4, C4-C5, C5-C6, C6-C7 anterior cervical discectomy and fusion with instrumentation 10/22 Post pharyngeal wall swelling/possible seroma-status post incision and drainage 10/31 Dysphagia Orthospine surgery following- Dr. Alcazar PT consulted- doing well with PT Had post op seroma Incision and drainage performed 10/31 Doing well after surgery, SARY drain no longer in place to left anterior neck-pt accidentally pulled 11/01 Tolerating clear liquids 11/01 added watered down ensure 11/02 which patient did not tolerate well Drank ensure clear 11/03, 11/04 Full liquid diet in place able to drink 2 ensure clear encourage PO intake as tolerated having some slow improvement Speech following Hypernatremia Improved Monitor chemistry daily Hypophosphatemia Protocol in place History of CAD with previous CABG Hypertension History of prostate cancer Continue medications as prescribed Aspirin on hold at this time DVT PPX: SCD Code status: Full Dispo: 1-2 days
[2023-11-08 08:05] LABS: Anion Gap 8.6 mEq/L (5.0-15.0); Phosphorus 2.3 mg/dL (2.5-4.9); Potassium 3.6 mEq/L (3.5-5.1)
[2023-11-08 09:06] VITALS: O2SAT 94
[2023-11-08] MEDS: POTASSIUM 25 MEQ EFFERV TAB PO ONE (09:35)
[2023-11-08] MEDS: POTASS/SODIUM PHOSPHATE 1 PKT POWD.PACK PO SCH (09:37)
--- NOTE | 2023-11-08 11:02 | P.DS ---
Admission Date: 10/25/23 Discharge Date: 11/08/23 [facility] Discharge Condition: FAIR Reason for Admission: S/P cervical fusion/diskectomy Brief History of Present Illness: 78-year-old male with history of hypertension, CAD with previous CABG, prostate cancer was hospitalized after having a C3-C4, C4-C5, C5-C6, C6-C7 anterior cervical discectomy and fusion with instrumentation. He had spondylosis with my elopathy in the cervical region of his spine which was indication for the procedure. Patient was placed under observation for pain management and physical therapy. Hospital Course: Diagnosis Spondylosis with myelopathy of the C-spine S/P C3-C4, C4-C5, C5-C6, C6-C7 anterior cervical discectomy and fusion with instrumentation 10/22 Post pharyngeal wall swelling/possible seroma status post incision and drainage 10/31 Oropharyngeal dysphagia Hypernatremia Hypophosphatemia History of CAD with previous CABG Hypertension History of prostate cancer Patient admitted to the medical floor and the following medical problems addressed: Spondylosis with myelopathy of the C-spine S/P C3-C4, C4-C5, C5-C6, C6-C7 anterior cervical discectomy and fusion with instrumentation 10/22 Post pharyngeal wall swelling/possible seroma-status post incision and drainage Oropharyngeal dysphagia Orthospine surgery following- Dr. Alcazar PT consulted- doing well with PT Had post op seroma. Patient had significant oropharyngeal dysphagia suspected to be related to the seroma Orthopedic/spine surgeon Dr. Alcazar followed patient and assisted with management Incision and drainage of the seroma performed 10/31. Patient is feeling improved significantly after the I&D. Patient is now doing well after surgery, SARY drain no longer in place to left anterior neck. Patient accidentally pulled it. Patient was evaluated by speech therapy who assisted with dysphagia treatment. He tolerated full liquid diet and and pureed diet. Patient seen by PT, he is able to ambulate with a walker Hypernatremia Resolved Hypophosphatemia Patient received supplementation. History of CAD with previous CABG Hypertension History of prostate cancer Continued medications as prescribed Vital Signs/Physical Exam: Temp Pulse Resp BP Pulse Ox 96.9 F 79 17 137/74 96 11/08/23 07:50 11/08/23 07:50 11/08/23 07:50 11/08/23 07:50 11/08/23 07:50 General: Alert, In no apparent distress, Oriented x3 HEENT: Mucous membr. moist/pink Neck: Supple, JVD not distended Respiratory: Clear to auscultation bilaterally, Normal air movement Cardiovascular: No edema, Regular rate/rhythm, Normal S1 S2 Gastrointestinal: Normal bowel sounds, Soft and benign, Non-distended, No tenderness Musculoskeletal: No clubbing Integumentary: No rashes, No cyanosis Neurological: Normal speech, Normal strength at 5/5 x4 extr, Cranial nerves 3-12 intact Laboratory Data at Discharge: WBC 6.80 thou/uL (4.3-10.9) 11/07/23 03:13 Hgb 13.9 g/dL (13.6-17.9) 11/07/23 03:13 Hct 41.2 % (39.6-49.0) 11/07/23 03:13 Plt Count 138 thou/uL (152-406) L 11/07/23 03:13 Sodium 136 mEq/L (136-145) 11/08/23 07:35 Potassium 3.6 mEq/L (3.5-5.1) 11/08/23 07:35 BUN 17 mg/dL (7-18) 11/08/23 07:35 Creatinine 0.74 mg/dL (0.70-1.30) 11/08/23 07:35 Glucose 113 mg/dL (74-106) H 11/08/23 07:35 Phosphorus 2.3 mg/dL (2.5-4.9) L 11/08/23 07:35 Magnesium 1.9 mg/dL (1.6-2.4) 10/30/23 19:52 Total Bilirubin 0.9 mg/dL (0.2-1.0) 11/03/23 03:11 AST 14 U/L (15-37) L 11/03/23 03:11 ALT 25 U/L (16-61) 11/03/23 03:11 Alkaline Phosphatase 82 U/L (45-117) 11/03/23 03:11 Home Medications: Atorvastatin Calcium [Lipitor] 40 mg PO BEDTIME 12/03/21 Cyanocobalamin [Vitamin B-12*] 1,000 mcg PO DAILY 12/03/21 Tadalafil [Cialis] 5 mg PO BID 12/03/21 Ubidecarenone [Co Q-10] 100 mg PO DAILY 12/03/21 Furosemide [Lasix*] 20 mg PO PRN PRN 11/02/22 Spironolactone [Aldactone*] 25 mg PO DAILY 11/02/22 Multivit-Mins/Iron/Folic/Lycop [Centrum Men's Tablet] 1 tab PO DAILY 02/16/23 Carvedilol [Coreg] 1 tab PO BID 08/01/23 Nitrofurantoin Monohyd/M-Cryst [Nitrofurantoin [place]-Mcr 100 mg] 100 mg PO DAILY 08/01/23 Ascorbic Acid [Vitamin C] 500 mg PO DAILY 10/05/23 Cholecalciferol (Vitd3)/Vit K2 [K2-D3 10,000 Unit Capsule] 1 each PO DAILY 10/05/23 Magnesium Glycinate, Mag Oxide [Magnesium Glycinate] 120 mg PO DAILY 10/05/23 Hydrocodone Bit/Acetaminophen [Hydrocodon-Acetaminophn 10-325] 1 each PO Q4H PRN 10/19/23 Aspirin 81 mg PO DAILY 10/23/23 Cetirizine HCl [Zyrtec*] 10 mg PO DAILY PRN #30 tab 11/08/23 Docusate [Colace Cap*] 100 mg PO BID #60 cap 11/08/23 Ensure Clear 237 ml PO TID #15 can 11/08/23 Glycerin Adult Suppos [Sani-Supp*] 1 supp [place] DAILY PRN #30 supp 11/08/23 New Medications: Docusate [Colace Cap*] 100 mg PO BID #60 cap Ensure Clear 237 ml PO TID #15 can Glycerin Adult Suppos [Sani-Supp*] 1 supp [place] DAILY PRN #30 supp PRN Reason: Constipation Cetirizine HCl [Zyrtec*] 10 mg PO DAILY PRN #30 tab PRN Reason: Allergy, cough Physician Discharge Instructions: Please progress from full liquid to soft pureed diet as tolerated. Diet: Modified Activity: Fall precautions Followup: Sandro Alcazar MD [ACTIVE - CAN ADMIT] - 1 Week Ned Quinn PA [Primary Care Provider] - 1 Week Time spent managing pt's care (in minutes): 37
[2023-11-08 12:08] VITALS: BP 131/67; TEMP 98.2
== END 2023-11-08 12:54 | disposition home or self-care (01) | DRG 472 ==
LOC: OR 05:26 → 2ND 11:14 → OBSVTOIN 10-25 09:49
PROVIDERS: ADMIT Hospitalist; ATTEND Internal Medicine
PROC: 0RB30ZZ Excision of Cervical Vertebral Disc, Open Approach (ICD-10-PCS; 2023-11-01)
PROC: 0W960ZZ Drainage of Neck, Open Approach (ICD-10-PCS; 2023-11-01)
PROC: 0RG20K0 Fusion of 2 or more Cervical Vertebral Joints with Nonautologous Tissue Substitute, Anterior Approach, Anterior Column, Open Approach (ICD-10-PCS; principal; 2023-11-01 07:00)
DX: M47.12 Other spondylosis with myelopathy, cervical region (principal); E87.0 Hyperosmolality and hypernatremia; I10 Essential (primary) hypertension; E83.39 Other disorders of phosphorus metabolism; I25.10 Atherosclerotic heart disease of native coronary artery without angina pectoris; R13.12 Dysphagia, oropharyngeal phase; Z95.1 Presence of aortocoronary bypass graft; Z85.46 Personal history of malignant neoplasm of prostate; Z79.02 Long term (current) use of antithrombotics/antiplatelets; Z79.82 Long term (current) use of aspirin; Z79.899 Other long term (current) drug therapy
CPT/HCPCS: 36415; 70491; 71045; 74018; 74230; 76000; 80048; 80053; 83735; 84100; 84132; 85025; 85027; 92526; 92611; 94010; 97110; 97116; 97161; 97530; A4216; G0378; J0360; J0690; J1100; J1170; J2001; J2250; J2270; J2371; J2405; J2704; J2710; J3010; J7120; Q9967

== ENCOUNTER 2024-01-01 15:18 | Inpatient (IN) | payer BC ==
[2024-01-01 16:06] LABS: Absolute Eosinophils 0.1 K/uL (0-0.5); Absolute Lymphocytes (CBC) 0.9 K/uL (0.7-4.9); Absolute Monocytes 0.6 K/uL (0.1-1.3); Basophils % 0.2 % (0-1.3); Eosinophils % 1.3 % (0-4.4); Hematocrit 35.2 % (39.6-49.0); Hemoglobin 11.4 g/dL (13.6-17.9); Lymphocytes % 13.2 % (15.3-44.8); MCH 28.4 pg (27.0-35.0); MCHC 32.3 g/dL (32.0-36.0); MPV 7.5 fL (7.6-11.3); Monocytes % 9.5 % (3.3-12.3); Neutrophils % 75.8 % (41.7-73.7); PT Prothrombin Time 13.9 SECONDS (9.5-12.5); Platelets 240 thou/uL (152-406); Protime INR 1.27; Red Cell Distribution Width 15.1 % (12.1-15.2)
[2024-01-01 16:24] LABS: Albumin/Globulin Ratio 0.4 (1.1-1.8); Anion Gap 9.9 mEq/L (5.0-15.0); Bilirubin Direct 0.3 mg/dL (0-0.2); Bilirubin Indirect, Calculated 0.4 mg/dL (0.2-0.8); Bilirubin Total 0.7 mg/dL (0.2-1.0); Magnesium 1.7 mg/dL (1.6-2.4); Potassium 3.9 mEq/L (3.5-5.1); Troponin High Sensitivity 5.2 pg/mL (<58.9)
[2024-01-01 16:28] LABS: SARS-CoV-2 Antigen CONTROL BLUE LINE VIS/BG OK; SARS-CoV-2 Antigen Rapid Res Negative (Negative)
--- NOTE | 2024-01-01 17:57 | RAD REPORT ---
EXAM DESCRIPTION: CT - Head Brain Wo Cont - 01/01/2024 5:29 pm CLINICAL HISTORY: Alteration of awareness/confusion/weakness COMPARISON: None TECHNIQUE: Computed axial tomography of the head was obtained. IV contrast was not requested. All CT scans are performed using dose optimization technique as appropriate and may include automated exposure control or mA/KV adjustment according to patient size. FINDINGS: An intracranial bleed is not seen The ventricles are normal in caliber No extra-axial fluid collection is noted. No significant hyperdensity within brain. Fluid within the sinuses/ mastoids is not seen. IMPRESSION: No acute intracranial abnormality is seen If patient's symptoms persist MRI of the brain would be recommended
--- NOTE | 2024-01-01 18:16 | RAD REPORT ---
EXAM DESCRIPTION: CT - Chest For Pe Angio - 01/01/2024 5:29 pm CLINICAL HISTORY: sob COMPARISON: 2019 TECHNIQUE: Dynamically enhanced axial 3 mm thick images of the chest were obtained during administra tion of 100 mL Isovue 370 IV contrast. Coronal and oblique reconstruction images were generated and r eviewed. Exam utilizes a protocol for optimal evaluation of pulmonary arterial tree. Maximum intensity projections 3D imaging was utilized All CT scans are performed using dose optimization technique as appropriate and may include automated exposure control or mA/KV adjustment according to patient size. FINDINGS: A pulmonary embolus is not seen. Aortic root 4.3 centimeters A pleural effusion is not seen. A pericardial effusion is not seen. A lung consolidation is not present. Mild to moderate bilateral interstitial lung opacities have significantly improved since prior exam. Presumably these opacities are chronic IMPRESSION: Negative for a pulmonary embolism.
--- NOTE | 2024-01-01 18:21 | RAD REPORT ---
EXAM DESCRIPTION: CT - Soft Tissue Neck W/Contr - 01/01/2024 5:29 pm CLINICAL HISTORY: Neck pain with dysphagia COMPARISON: October 2023 TECHNIQUE: Computed axial tomography of the neck was obtained. 50 cc Isovue 300 was administered in travenously. Coronal and sagittal reconstruction was performed. All CT scans are performed using dose optimization technique as appropriate and may include automated exposure control or mA/KV adjustment according to patient size. FINDINGS: Soft tissue is present within the prevertebralpace thoracic inlet. This measures 4 x 2 5 c entimeters. Hounsfield unit 40. On prior exam fluid was present within this region. The upper thoraci c esophagus appears compressed by soft tissue The pharynx, tongue base, larynx and subglottic trachea appear unremarkable The parotid, submandibular and thyroid glands appear unremarkable. The fluid collection within the left neck and retro pharyngeal region is no longer present. Anterior fusion C3 through C7 again demonstrated. Lucencies surround anterior screws within the C3 vertebral body. Erosions are present within the ante rior aspect of C3 vertebral body. The anterior superior aspect C4 vertebral body has become avulsed from the adjacent bone. Posterior decompression upper cervical spine noted. IMPRESSION: Osteolysis C3. Anterior superior aspects C4 vertebral body has become avulsed from the adjacent bone presumably by b art erosion Prevertebral soft tissue thoracic inlet/upper thoracic spine presumably inflammatory tissue. This is present at the site of prior fluid collection. The upper thoracic esophagus appears compressed by sof t tissue
--- NOTE | 2024-01-01 18:22 | RAD REPORT ---
EXAM DESCRIPTION: Marcia Single View01/01/2024 4:24 pm CLINICAL HISTORY: Shortness of breath COMPARISON: November 2003 FINDINGS: Mild to moderate bilateral interstitial lung opacities without significant change from mlei or exam presumably chronic. Heart is normal size Postsurgical changes involve the chest IMPRESSION: No acute abnormalities displayed
[2024-01-01] MEDS ORDERED: FENTANYL CITR 100 MCG/2 ML ONE (18:51)
--- NOTE | 2024-01-01 20:06 | EDPHYS ---
Physician Documentation [facility] Name: Randall Chaves Age: 78 yrs Sex: Male : 1945 Arrival Date: 01/01/2024 Time: 15:18 Bed 16 Private MD: ED Physician Jose Roa HPI: 12/31 15:33 This 78 yrs old Male presents to ER via EMS with complaints of Shortness Of Breath. cp 15:33 The patient has shortness of breath at rest. cp 15:35 The patient presents with dysphagia. cp 15:35 Associated signs and symptoms: Pertinent positives: general weakness, Pertinent cp negatives: chest pain, fever, vomiting. 15:35 Patient is a 78-year-old male who presents to the emergency department with complaints cp of increasing weakness, shortness of breath and dysphagia. Patient reports having an anterior cervical fusion surgery performed by Dr. Alcazar in October of this year and after subsequently developing fluid in the area of the incision that was drained last month, patient feels like he is going downhill and just has not been doing well. Patient reports increasing difficulty swallowing, decreased appetite and increasing general weakness. Historical: - Allergies: 15:32 Bees; ap3 - PMHx: 15:32 Bronchitis; Hyperlipidemia; Hypertension; ap3 - Immunization history:: Client reports receiving the 2nd dose of the Covid vaccine, Flu vaccine is up to date. - Infectious Disease History:: Denies. - Social history:: Smoking status: Patient/guardian denies using tobacco. ROS: 15:40 Constitutional: Positive for poor PO intake, weight loss, Negative for body aches, cp chills, fever, 15:40 Cardiovascular: Negative for chest pain, palpitations, cp 15:40 Respiratory: Negative for cough, shortness of breath, wheezing, 15:40 Abdomen/GI: Negative for abdominal pain, vomiting, diarrhea, constipation, 15:40 Neuro: Positive for weakness, Negative for altered mental status, headache, 15:40 Eyes: Negative for injury, pain, redness, and discharge, cp 15:40 ENT: Positive for difficulty swallowing, Negative for drainage from ear(s), ear pain, cp difficulty handling secretions, hoarseness, 15:40 : Negative for urinary symptoms, 15:40 All other systems are negative, Exam: 15:45 Constitutional: The patient appears in no acute distress, alert, awake, cp non-diaphoretic, non-toxic, well developed, well nourished, 15:45 Head/Face: Normocephalic, atraumatic. cp 15:45 Eyes: Periorbital structures: appear normal, Conjunctiva: normal, no exudate, no injection, Sclera: no appreciated abnormality, Lids and lashes: appear normal, bilaterally, 15:45 ENT: External ear(s): are unremarkable, Nose: is normal, Mouth: Lips: moist, Oral mucosa: pink and intact, moist, Posterior pharynx: is normal, airway is patent, no erythema, no exudate, 15:45 Neck: External neck: swelling, that is mild, of the left sternocleidomastoid and left anterior aspect of neck, tenderness, that is mild, of the left sternocleidomastoid and left anterior aspect of neck, ROM/movement: Meningeal signs: are not present, nuchal rigidity, is not appreciated, 15:45 Chest/axilla: Inspection: normal, Palpation: is normal, no crepitus, no tenderness, 15:45 Cardiovascular: Rate: normal, Rhythm: regular, Edema: is not appreciated, JVD: is not appreciated, 15:45 Respiratory: the patient does not display signs of respiratory distress, Respirations: normal, no use of accessory muscles, no retractions, labored breathing, is not present, Breath sounds: are clear throughout, no decreased breath sounds, no stridor, no wheezing, 15:45 Abdomen/GI: Inspection: abdomen appears normal, Bowel sounds: active, all quadrants, Palpation: abdomen is soft and non-tender, in all quadrants, 15:45 Back: pain, is absent, ROM is normal, 15:45 Neuro: Orientation: to person, place \T\ time. Mentation: is normal, Motor: moves all fours, no focal deficits, Sensation: no obvious gross deficits, 16:45 ECG was reviewed by the Attending Physician. cp Vital Signs: 15:29 BP 137 / 83; Pulse 84; Resp 16; Temp 98.4(O); Pulse Ox 99% on R/A; Weight 85.73 kg; ap3 Height 5 ft. 7 in. ; Pain 2/10; 16:43 BP 132 / 77; Pulse 69; Resp 17; Pulse Ox 98% on R/A; ap3 17:56 BP 127 / 68; Pulse 74; Resp 19; Pulse Ox 98% on R/A; ap3 18:58 BP 107 / 71; Pulse 72; Resp 16; Pulse Ox 100% on R/A; mb9 19:00 BP 146 / 74; Pulse 68; Resp 23 S; Pulse Ox 97% on R/A; jw7 20:00 BP 160 / 77; Pulse 77; Resp 21 S; Pulse Ox 98% on R/A; jw7 21:00 BP 170 / 97; Pulse 70; Resp 22 S; Pulse Ox 95% on R/A; jw7 22:00 BP 153 / 70; Pulse 69; Resp 21 S; Pulse Ox 94% on R/A; jw7 23:10 BP 165 / 84; Pulse 71; Resp 20 S; Temp 98.5(TE); Pulse Ox 97% on R/A; jw7 15:29 Body Mass Index 29.60 (85.73 kg, 170.18 cm) ap3 15:29 Pain Scale: Adult ap3 MDM: 15:30 Patient medically screened. 16:00 Differential diagnosis: tonsillitis, abscess, sepsis, dehydration, [place]. 19:45 ED course: consult with DR Alcazar concerning radiology findings and he is agreeable to consult on patient. Also requests ENT consult. 19:57 Management of patient was discussed with the following: Hospitalist: DR Brar will admit patient and consult DR Alcazar and consult DR Candelario. 20:00 Data reviewed: vital signs, nurses notes, lab test result(s), EKG, radiologic studies, cp CT scan. 20:00 I considered the following discharge prescriptions or medication management in the emergency department Medications were administered in the Emergency Department. See MAR. Care significantly affected by the following chronic conditions: Hypertension. Counseling: I had a detailed discussion with the patient and/or guardian regarding the historical points, exam findings, and any diagnostic results supporting the discharge/admit diagnosis, lab results, radiology results, the need for further work-up and treatment in the hospital. 12/31 15:29 Order name: Basic Metabolic Panel; Complete Time: 16:25 12/31 15:29 Order name: CBC with Diff; Complete Time: 16:25 12/31 16:25 Interpretation: Normal except: RBC 4.00; HGB 11.4; HCT 35.2; MPV 7.5; BILLY% 75.8; LYM% cp 13.2. 06/10 15:29 Order name: LFT's; Complete Time: 16:25 cp /10 18:29 Interpretation: Normal except: AST 14; ALK 119; BILID 0.3; ALB 2.0; GLOB 5.0; A/G 0.4. cp 06/10 15:29 Order name: Magnesium; Complete Time: 16:25 cp /10 15:29 Order name: NT PRO-BNP; Complete Time: 16:25 cp /10 15:29 Order name: PT-INR; Complete Time: 16:25 cp /10 15:29 Order name: Troponin HS; Complete Time: 16:25 cp 10 15:32 Order name: SARS RAPID; Complete Time: 16:38 cp /10 15:32 Order name: Influenza Screen (a \T\ B); Complete Time: 16:38 cp 10 21:15 Order name: Comprehensive Metabolic Panel EDNY 12/31 21:15 Order name: CBC with Automated Diff EDMS 12/31 21:15 Order name: CBC with Automated Diff EDMS 10 15:29 Order name: XRAY Chest (1 view); Complete Time: 18:24 cp 10 16:05 Order name: CT Soft Tissue Neck W/contr; Complete Time: 18:24 cp 10 16:26 Order name: CT Head Brain wo Cont; Complete Time: 18:24 cp /10 16:26 Order name: CT Chest For PE Angio; Complete Time: 18:24 cp /10 21:15 Order name: CONS Physician Consult EDMS 12/31 21:15 Order name: CONS Physician Consult EDMS 12/31 15:29 Order name: Cardiac monitoring; Complete Time: 15:35 cp /10 15:29 Order name: EKG - Nurse/Tech; Complete Time: 16:45 cp /10 15:29 Order name: IV Saline Lock; Complete Time: 15:57 cp /10 15:29 Order name: Labs collected and sent; Complete Time: 15:57 cp /10 15:29 Order name: O2 Per Protocol; Complete Time: 15:35 cp /10 15:29 Order name: O2 Sat Monitoring; Complete Time: 15:35 cp EC:45 Rate is 71 beats/min. Rhythm is regular. AL interval is normal. QRS interval is normal. cp T waves are Inverted in lead aVR. Interpreted by me. Reviewed by me. Administered Medications: 18:58 Drug: fentaNYL (PF) IVP 25 mcg IVP once Route: IVP; Site: left antecubital; mb9 22:23 Follow up: Response: No adverse reaction; Marked relief of symptoms; Pain is decreased jw7 Disposition Summary: 01/01/24 20:06 Hospitalization Ordered Notes: Hospitalization Status: Inpatient Admission cp Provider: Fortino Brar cp Location: Telemetry/MedSurg (Inpatient) cp Condition: Stable cp Problem: new cp Symptoms: have improved cp Bed/Room Type: Standard cp Room Assignment: 216(01/01/24 21:48) ty Diagnosis - Weakness cp - Dysphagia cp - Shortness of breath cp Forms: - Medication Reconciliation Form cp - SBAR form cp - Leadership Thank You Letter cp Addendum: 01/05/2024 20:19 Co-signature as Attending Physician, Jose Roa MD I reviewed the patient's care r t provided by the Advanced Practice Provider and agree with the diagnosis and treatment plan. Signatures: Dispatcher [employer] EDMS Gucci Gold PA PA cp Nieves Mendoza RN RN ap3 Gale Mendez, RN RN mb9 Jose Roa MD MD rt Camilo Blankenship Jodi RN jw7 Corrections: (The following items were deleted from the chart) 12/31 15:33 15:33 SARS-COV-2 Antigen Rapid+I.LAB.BRZ ordered. EDMS EDMS 15:33 15:33 Influenza Screen (A \T\ B)+BA.LAB.BRZ ordered. EDMS EDMS 16:06 16:06 Chest For PE Angio+CT.RAD.BRZ ordered. EDMS EDMS 16:27 16:27 Head Brain Wo Cont+CT.RAD.BRZ ordered. EDMS EDMS 16:27 16:27 Chest For PE Angio+CT.RAD.BRZ ordered. EDMS EDMS 21:48 20:06 cp ty
--- NOTE | 2024-01-01 20:06 | ER ---
Nurse's Notes [facility] Name: Randall Chaves Age: 78 yrs Sex: Male : 1945 Arrival Date: 01/01/2024 Time: 15:18 Bed 16 Private MD: Diagnosis: Weakness;Dysphagia;Shortness of breath Presentation: 12/31 15:29 Chief complaint: Patient states: he had neck surgery on 12/01/[address] Alcazar and has ap3 since been having increased weakness and difficulty swallowing food and secretions. Patient also reports difficulty breathing during this same time frame. patient reports a current pain level as a 2/10 on the pain scale. Coronavirus screen: At this time, the client does not indicate any symptoms associated with coronavirus-19. Ebola Screen: No symptoms or risks identified at this time. Initial Sepsis Screen: Does the patient meet any 2 criteria? No. Patient's initial sepsis screen is negative. Does the patient have a suspected source of infection? No. Patient's initial sepsis screen is negative. Risk Assessment: Do you want to hurt yourself or someone else? Patient reports no desire to harm self or others. Onset of symptoms is unknown. 15:29 Method Of Arrival: EMS: [facility] ap3 15:29 Acuity: CANDIDA 3 ap3 Triage Assessment: 15:32 General: Appears comfortable, Behavior is calm. Pain: Complains of pain in neck Pain ap3 currently is 2 out of 10 on a pain scale. at worst was 8 out of 10 on a pain scale. EENT: Reports difficulty swallowing. Neuro: Level of Consciousness is awake, alert, obeys commands, Oriented to person, place, time, situation, Speech is normal, Facial symmetry appears normal. Cardiovascular: Patient's skin is warm and dry. Respiratory: Reports shortness of breath Airway is patent Respiratory effort is even, unlabored, Respiratory pattern is regular, symmetrical, Onset: The symptoms/episode began/occurred gradually, the patient has mild shortness of breath. GI: Reports. Historical: - Allergies: 15:32 Bees; ap3 - PMHx: 15:32 Bronchitis; Hyperlipidemia; Hypertension; ap3 - Immunization history:: Client reports receiving the 2nd dose of the Covid vaccine, Flu vaccine is up to date. - Infectious Disease History:: Denies. - Social history:: Smoking status: Patient/guardian denies using tobacco. Screenin:34 Abuse screen: Denies threats or abuse. Nutritional screening: No deficits noted. ap3 Tuberculosis screening: No symptoms or risk factors identified. 18:46 [facility] ED Fall Risk Assessment (Adult) History of falling in the last 3 months, mb9 including since admission No falls in past 3 months (0 pts) Confusion or Disorientation No (0 pts) Intoxicated or Sedated No (0 pts) Impaired Gait No (0 pts) Mobility Assist Device Used No (0 pt) Altered Elimination No (0 pt) Score/Fall Risk Level 0 - 2 = Low Risk Oriented to surroundings, Maintained a safe environment, Educated pt \T\ family on fall prevention, incl call for assistance when getting out of bed. Assessment: 17:00 Reassessment: No changes from previously documented assessment. Patient and/or family bp updated on plan of care and expected duration. Pain level reassessed. Patient is alert, oriented x 3, equal unlabored respirations, skin warm/dry/pink. 17:10 General: Appears in no apparent distress. Behavior is calm, cooperative. Pain: mb9 Complains of pain in neck Quality of pain is described as throbbing. Neuro: [place] Agitation-Sedation Scale (RASS): 0 - Alert and Calm Level of Consciousness is awake, alert, obeys commands, Oriented to person, place, time, situation, Appropriate for age. Cardiovascular: Heart tones S1 S2 present Patient's skin is warm and dry. Cardiovascular: Rhythm is regular. Respiratory: Reports shortness of breath cough that is Airway is patent Respiratory effort is even, unlabored, Respiratory pattern is regular, symmetrical, Breath sounds are clear bilaterally. GI: No signs and/or symptoms were reported involving the gastrointestinal system. : No signs and/or symptoms were reported regarding the genitourinary system. EENT: Throat is clear. Derm: Skin is pink, warm \T\ dry. Musculoskeletal: Range of motion: intact in all extremities. 18:30 Reassessment: No changes from previously documented assessment. Patient and/or family mb9 updated on plan of care and expected duration. Pain level reassessed. Patient is alert, oriented x 3, equal unlabored respirations, skin warm/dry/pink. 18:58 Reassessment: Pts , Elizabeth, phone number; [phone]. mb9 19:00 General: Appears in no apparent distress. comfortable, Behavior is calm, cooperative. jw7 Pain: Complains of pain in neck Pain does not radiate. Quality of pain is described as throbbing. Neuro: Level of Consciousness is awake, alert, obeys commands, Oriented to person, place, time, situation, Appropriate for age. Cardiovascular: Heart tones S1 S2 present Capillary refill < 3 seconds Clubbing of nail beds is absent JVD is absent Patient's skin is warm and dry. Respiratory: Airway is patent Trachea midline Respiratory effort is even, unlabored, Respiratory pattern is regular, symmetrical, Breath sounds are clear bilaterally. GI: No deficits noted. No signs and/or symptoms were reported involving the gastrointestinal system. : No deficits noted. No signs and/or symptoms were reported regarding the genitourinary system. EENT: Throat is clear. Derm: Skin is intact, is healthy with good turgor, Skin is dry, Skin is normal, Skin temperature is warm. Musculoskeletal: Circulation, motion, and sensation intact. Range of motion: intact in all extremities. 20:00 Reassessment: Patient appears in no apparent distress at this time. No changes from jw7 previously documented assessment. Patient and/or family updated on plan of care and expected duration. Pain level reassessed. Patient is alert, oriented x 3, equal unlabored respirations, skin warm/dry/pink. 21:00 Reassessment: Patient appears in no apparent distress at this time. No changes from jw7 previously documented assessment. Patient and/or family updated on plan of care and expected duration. Pain level reassessed. Patient is alert, oriented x 3, equal unlabored respirations, skin warm/dry/pink. 22:00 Reassessment: Patient appears in no apparent distress at this time. No changes from jw7 previously documented assessment. Patient and/or family updated on plan of care and expected duration. Pain level reassessed. Patient is alert, oriented x 3, equal unlabored respirations, skin warm/dry/pink. 23:00 Reassessment: Patient appears in no apparent distress at this time. No changes from jw7 previously documented assessment. Patient and/or family updated on plan of care and expected duration. Pain level reassessed. Patient is alert, oriented x 3, equal unlabored respirations, skin warm/dry/pink. Vital Signs: 15:29 BP 137 / 83; Pulse 84; Resp 16; Temp 98.4(O); Pulse Ox 99% on R/A; Weight 85.73 kg; ap3 Height 5 ft. 7 in. ; Pain 2/10; 16:43 BP 132 / 77; Pulse 69; Resp 17; Pulse Ox 98% on R/A; ap3 17:56 BP 127 / 68; Pulse 74; Resp 19; Pulse Ox 98% on R/A; ap3 18:58 BP 107 / 71; Pulse 72; Resp 16; Pulse Ox 100% on R/A; mb9 19:00 BP 146 / 74; Pulse 68; Resp 23 S; Pulse Ox 97% on R/A; jw7 20:00 BP 160 / 77; Pulse 77; Resp 21 S; Pulse Ox 98% on R/A; jw7 21:00 BP 170 / 97; Pulse 70; Resp 22 S; Pulse Ox 95% on R/A; jw7 22:00 BP 153 / 70; Pulse 69; Resp 21 S; Pulse Ox 94% on R/A; jw7 23:10 BP 165 / 84; Pulse 71; Resp 20 S; Temp 98.5(TE); Pulse Ox 97% on R/A; jw7 15:29 Body Mass Index 29.60 (85.73 kg, 170.18 cm) ap3 15:29 Pain Scale: Adult ap3 ED Course: 15:25 Patient arrived in ED. mr 15:28 Gucci Gold PA is PHCP. cp 15:29 Jose Roa MD is Attending Physician. cp 15:32 Triage completed. ap3 15:34 Arm band placed on left wrist. ap3 15:34 Patient has correct armband on for positive identification. Placed in gown. Bed in low ap3 position. Call light in reach. Side rails up X2. Adult w/ patient. Provided Education on: fall risk and call light education. Client placed on continuous cardiac and pulse oximetry monitoring. NIBP monitoring applied. conveyor monitor on. Pulse ox on. NIBP on. 15:57 Nieves Mendoza, ALICIA is Primary Nurse. ap3 15:57 Initial lab(s) drawn, by me, sent to lab. COVID swab sent to lab. Flu and/or RSV swab ap3 sent to lab. Inserted saline lock: 20 gauge in left antecubital area, using aseptic technique. Blood collected. 15:57 Influenza Screen (a \T\ B) Sent. ap3 15:58 SARS RAPID Sent. ap3 15:58 Basic Metabolic Panel Sent. ap3 15:58 CBC with Diff Sent. ap3 15:58 LFT's Sent. ap3 15:58 Magnesium Sent. ap3 15:58 NT PRO-BNP Sent. ap3 15:58 PT-INR Sent. ap3 15:58 Troponin HS Sent. ap3 16:13 Radiology exam delayed due to lab results not completed at this time. (BUN/Creatinine). nj 16:26 XRAY Chest (1 view) In Process Unspecified. EDMS 16:48 EKG done, by ED staff, reviewed by Gucci CONROY. mb9 17:30 CT Head Brain wo Cont In Process Unspecified. EDMS 17:31 CT Soft Tissue Neck W/contr In Process Unspecified. EDMS 17:31 CT Chest For PE Angio In Process Unspecified. EDMS 18:46 No provider procedures requiring assistance completed. mb9 19:03 Report given to ALICIA Cervantes. mb9 20:05 Fortino Brar MD is Hospitalizing Provider. cp 23:11 Patient admitted, IV remains in place. jw7 Administered Medications: 18:58 Drug: fentaNYL (PF) IVP 25 mcg IVP once Route: IVP; Site: left antecubital; mb9 22:23 Follow up: Response: No adverse reaction; Marked relief of symptoms; Pain is decreased jw7 Medication: 15:58 VIS not applicable for this client. ap3 Outcome: 20:06 Decision to Hospitalize by Provider. cp 23:11 Admitted to Med/surg accompanied by tech, via stretcher, room 216, jw7 23:11 Condition: stable 23:11 Instructed on the need for admit, Demonstrated understanding of instructions, 23:11 Patient left the ED. jw7 Signatures: Dispatcher [employer] EDMN [employer] wyatt, Reg Reg Gucci Shah PA PA cp Jordan, Nathan nj Peltier, Brian, RN RN Nieves Montanez RN RN ap3 Waits, ALICIA Cervantes RN jw7 Gale Mendez RN RN mb9
--- NOTE | 2024-01-01 21:05 | P.HP ---
Certification for Inpatient With expected LOS: >2 Midnights Practitioner: I am a practitioner with admitting privileges, knowledge of patient current condition, hospital course, and medical plan of care. Services: Services provided to patient in accordance with Admission requirements found in Title 42 Section 412.3 of the Code of Federal Regulations Patient History Date of Service: 01/01/24 Reason for admission: Shortness of breath chest congestion History of Present Illness: Patient is 78 years of age with a history of COPD became congested short of breath this morning ended up here in the hospital recently had extensive neck surgery is done that started on October 08 the revisions the last 1 was in October 31 he has been complaining of difficulty swallowing since then able to keep soft food and liquids afraid of eating any solid foods. Does take Symbicort at home has any fever or chills Allergies No Known Allergies Allergy (Verified 10/23/23 06:44) Home Medications: Atorvastatin Calcium [Lipitor] 40 mg PO BEDTIME 12/03/21 Cyanocobalamin [Vitamin B-12*] 1,000 mcg PO DAILY 12/03/21 Tadalafil [Cialis] 5 mg PO BID 12/03/21 Ubidecarenone [Co Q-10] 100 mg PO DAILY 12/03/21 Furosemide [Lasix*] 20 mg PO PRN PRN 11/02/22 Spironolactone [Aldactone*] 25 mg PO DAILY 11/02/22 Multivit-Mins/Iron/Folic/Lycop [Centrum Men's Tablet] 1 tab PO DAILY 02/16/23 Carvedilol [Coreg] 1 tab PO BID 08/01/23 Nitrofurantoin Monohyd/M-Cryst [Nitrofurantoin [place]-Mcr 100 mg] 100 mg PO DAILY 08/01/23 Ascorbic Acid [Vitamin C] 500 mg PO DAILY 10/05/23 Cholecalciferol (Vitd3)/Vit K2 [K2-D3 10,000 Unit Capsule] 1 each PO DAILY 10/05/23 Magnesium Glycinate, Mag Oxide [Magnesium Glycinate] 120 mg PO DAILY 10/05/23 Hydrocodone Bit/Acetaminophen [Hydrocodon-Acetaminophn 10-325] 1 each PO Q4H PRN 10/19/23 Aspirin 81 mg PO DAILY 10/23/23 Cetirizine HCl [Zyrtec*] 10 mg PO DAILY PRN #30 tab 11/08/23 Docusate [Colace Cap*] 100 mg PO BID #60 cap 11/08/23 Ensure Clear 237 ml PO TID #15 can 11/08/23 Glycerin Adult Suppos [Sani-Supp*] 1 supp MO DAILY PRN #30 supp 11/08/23 - Past Medical/Surgical History -: CAD SP CABG -: HTN -: Prostate CA -: Neuropathy -: COVID -: CABG -: Lumbar spine -: C-spine sx Psychosocial/ Personal History: Lives at home with family - Social History Alcohol use: No CD- Drugs: No Caffeine use: Yes Review of Systems 10-point ROS is otherwise unremarkable Respiratory: Cough, Shortness of Breath Gastrointestinal: Other (Complaining of dysphagia) Physical Examination - Vital Signs Temperature: 98.4 F Blood Pressure: 137/83 Pulse: 84 Respirations: 16 Pulse Ox (%): 99 - Physical Exam General: Alert, In no apparent distress, Oriented x3 HEENT: Atraumatic Neck: Supple Respiratory: Expiratory wheezes Cardiovascular: No edema, Regular rate/rhythm, Normal S1 S2 Gastrointestinal: Normal bowel sounds, Soft and benign Integumentary: No rashes, No breakdown, No significant lesion Neurological: Normal speech, Normal strength at 5/5 x4 extr - Studies Laboratory Data (last 24 hrs) 01/01/24 01/01/24 01/01/24 15:50 15:50 15:50 WBC 6.60 Hgb 11.4 L Hct 35.2 L Plt Count 240 PT 13.9 H INR 1.27 Sodium 137 Potassium 3.9 BUN 14 Creatinine 0.75 Glucose 92 Magnesium 1.7 Total Bilirubin 0.7 AST 14 L ALT 19 Alkaline Phosphatase 119 H Microbiology Data (last 24 hrs): 01/01/24 15:50 Nasopharnyx Influenza Type A Antigen Screen - Final 01/01/24 15:50 Nasopharnyx Influenza Type B Antigen Screen - Final Assessment and Plan - Problems (Diagnosis) (1) COPD exacerbation Current Visit: Yes Status: Acute Plan: Patient is 78 years of age with a history of COPD admitted with acute cough congestion CT scan no evidence of thromboemboli positional changes seem to have improved we will plan to admit treat him with some steroids bronchodilators no evidence of sepsis (2) Dysphagia Current Visit: Yes Status: Acute Plan: Patient is 78 years of age has had recent surgeries and since October 31 has been complaining of difficulty swallowing he only consumes Labs are otherwise unremarkable CT scan report Osteolysis C3. Anterior superior aspects C4 vertebral body has become avulsed from the adjacent bone presumably by bony erosion Prevertebral soft tissue thoracic inlet/upper thoracic spine presumably inflammatory tissue. This is present at the site of prior fluid collection. The upper thoracic esophagus appears compressed by soft tissue The ER physician discussed with Dr. Alcazar evaluate him tomorrow. ENT consult Qualifiers: Dysphagia type: esophageal phase Qualified Code(s): R13.19 - Other dysphagia - Advance Directives Does patient have a Living Will: Yes Does patient have a Durable POA for Healthcare: No
[2024-01-01] MEDS ORDERED: ONDANSETRON 4 MG/2 ML VIAL IV PRN (21:10)
[2024-01-01] MEDS ORDERED: ALBUTEROL 2.5 MG/3 ML NEB SOL NEB PRN (21:10)
[2024-01-01] MEDS: predniSONE 20 MG TAB PO SCH (23:34)
[2024-01-01] MEDS: NA CHLORIDE 0.9% 1,000 ML IV SCH (23:37)
[2024-01-02 00:32] VITALS: BMI 29.6
[2024-01-02] MEDS: IPRATROPIUM BROM 0.5MG/2.5ML NEB SCH (01:22)
[2024-01-02 03:39] LABS: Absolute Lymphocytes (CBC) 0.6 K/uL (0.7-4.9); Absolute Monocytes 0.3 K/uL (0.1-1.3); Absolute Neutrophil 4.8 K/uL (1.8-8.0); Basophils % 0.2 % (0-1.3); Eosinophils % 0.5 % (0-4.4); Hematocrit 32.5 % (39.6-49.0); Hemoglobin 10.7 g/dL (13.6-17.9); Lymphocytes % 10.5 % (15.3-44.8); MCHC 32.8 g/dL (32.0-36.0); MCV 88.2 fL (80-100); MPV 7.8 fL (7.6-11.3); Monocytes % 4.9 % (3.3-12.3); Neutrophils % 83.9 % (41.7-73.7); Platelets 204 thou/uL (152-406); RBC Red Blood Cell Count 3.69 M/uL (4.33-5.43)
[2024-01-02 04:04] LABS: Albumin 1.9 g/dL (3.4-5.0); Albumin/Globulin Ratio 0.4 (1.1-1.8); Anion Gap 8.9 mEq/L (5.0-15.0); Bilirubin Total 0.6 mg/dL (0.2-1.0); Globulin 4.5 g/dL (2.3-3.5); Potassium 3.9 mEq/L (3.5-5.1); Protein, Total 6.4 g/dL (6.4-8.2)
--- NOTE | 2024-01-02 08:10 | P.PN ---
Subjective Date of Service: 01/02/24 Chief Complaint: Shortness of breath chest congestion Admitted with Shortenss of breath, recently had extensive neck surgery is done that started on October 08 the revisions the last 1 was in October 31 he has been complaining of difficulty swallowing since then able to keep soft food and liquids afraid of eating any solid foods - Physical Exam General: Alert, In no apparent distress, Oriented x3 HEENT: Atraumatic Neck: Supple Respiratory: Expiratory wheezes Cardiovascular: No edema, Regular rate/rhythm, Normal S1 S2 Gastrointestinal: Normal bowel sounds, Soft and benign Integumentary: No rashes, No breakdown, No significant lesion Neurological: Normal speech, Normal strength at 5/5 x4 extr Review of Systems per HPI Physical Examination - Vital Signs Temperature: 97.4 F Blood Pressure: 140/69 Pulse: 72 Respirations: 16 Pulse Ox (%): 94 - Studies Laboratory Data (last 24 hrs) 01/01/24 01/01/24 01/01/24 15:50 15:50 15:50 WBC 6.60 Hgb 11.4 L Hct 35.2 L Plt Count 240 PT 13.9 H INR 1.27 Sodium 137 Potassium 3.9 BUN 14 Creatinine 0.75 Glucose 92 Magnesium 1.7 Total Bilirubin 0.7 AST 14 L ALT 19 Alkaline Phosphatase 119 H Microbiology Data (last 24 hrs): 01/01/24 15:50 Nasopharnyx Influenza Type A Antigen Screen - Final 01/01/24 15:50 Nasopharnyx Influenza Type B Antigen Screen - Final Assessment And Plan - Plan Assessment and Plan (1) COPD exacerbation Current Visit: Yes Status: Acute Plan: Patient is 78 years of age with a history of COPD admitted with acute cough congestion CT scan no evidence of thromboemboli positional changes seem to have improved we will plan to admit treat him with some steroids bronchodilators no evidence of sepsis (2) Dysphagia Current Visit: Yes Status: Acute Plan: Patient is 78 years of age has had recent surgeries and since October 31 has been complaining of difficulty swallowing he only consumes Labs are otherwise unremarkable CT scan report Osteolysis C3. Anterior superior aspects C4 vertebral body has become avulsed from the adjacent bone presumably by bony erosion Prevertebral soft tissue thoracic inlet/upper thoracic spine presumably inflammatory tissue. This is present at the site of prior fluid collection. The upper thoracic esophagus appears compressed by soft tissue The ER physician discussed with Dr. Alcazar evaluate him tomorrow. ENT consult Qualifiers: Dysphagia type: esophageal phase Qualified Code(s): R13.19 - Other dysphagia Discharge Plan: Home Critical Care: No Time Spent Managing PTS Care (In Minutes): 35
[2024-01-02] MEDS: DULERA 200/5 (MOMETASONE/FORMOTEROL) INHALER IH SCH (08:15)
--- NOTE | 2024-01-02 14:48 | RAD REPORT ---
EXAM DESCRIPTION: RAD - Barium Swallow Modified - 01/02/2024 2:19 pm CLINICAL HISTORY: Dysphagia, recent anterior approach spine surgery. COMPARISON: None. TECHNIQUE: The patient was given liquid, semi-solid and solid forms of barium. Lateral view fluorosc opic imaging was performed in conjunction with speech pathology service. Fluoro time: 2:49 minutes Skin dose: 23.62 mGy FINDINGS: Anterior cervical plating hardware spanning C3-C5 and likely extending further caudally, i ncompletely evaluated. Laryngeal penetration with multiple consistencies, mostly cleared spontaneously. Aspiration noted wit h thin liquids, with spontaneous cough. Vallecular and piriform sinus residues noted. IMPRESSION: Laryngeal penetration noted with multiple consistencies, as well as everton aspiration not ed with thin liquids. Please refer to speech pathologist's report for additional details.
[2024-01-02] MEDS: ENSURE ENLIVE 237 ML CAN PO SCH (15:00)
--- NOTE | 2024-01-02 15:07 | EKG ---
Test Date: 2024-01-01 Test Time: 16:43:22 Certified First Assistant: MB MEASUREMENT RESULTS: Intervals: Rate: 81 MO: 182 QRSD: 104 QT: 390 QTc: 453 [place]: P: 31 MO: 182 QRS: -6 T: -7 INTERPRETIVE STATEMENTS: Normal sinus rhythm Minimal voltage criteria for LVH, may be normal variant Cannot rule out Anterior infarct, age undetermined Abnormal ECG Compared to ECG 01/01/2024 16:39:19 Left ventricular hypertrophy now present Myocardial infarct finding now present Sinus arrhythmia no longer present T-wave abnormality no longer present Electronically Signed On 01-02-24 15:05:56 CDT by Dante Nicolas
--- NOTE | 2024-01-02 15:08 | EKG ---
Test Date: 2024-01-01 Test Time: 16:39:19 Rope Silica Machine Operator: MB MEASUREMENT RESULTS: Intervals: Rate: 71 [place]: 144 QRSD: 68 QT: 388 QTc: 421 [place]: P: 20 [place]: 144 QRS: 3 T: 37 INTERPRETIVE STATEMENTS: Normal sinus rhythm with sinus arrhythmia Nonspecific T wave abnormality Abnormal ECG Compared to ECG 12/13/2023 10:08:28 Atrial premature complex(es) no longer present T-wave abnormality still present Electronically Signed On 01-02-24 15:05:58 CDT by Dante Nicolas
[2024-01-03] MEDS ORDERED: NA CHLORIDE 0.9% 500 ML ONE (07:45)
[2024-01-03] MEDS: MORPHINE 4 MG/ML SYR IV PRN (08:27)
--- NOTE | 2024-01-03 08:41 | P.PN ---
Subjective Date of Service: 01/03/24 Chief Complaint: Shortness of breath chest congestion Admitted with Shortenss of breath, recently had extensive neck surgery is done that started on October 08 the revisions the last 1 was in October 31 he has been complaining of difficulty swallowing since then able to keep soft food and liquids afraid of eating any solid foods Speech eval completed with modified barium swallow, speech therapy recommends mechanical soft, thin liquid, minced moist diet thin liquids with chin tuck, cr ush meds MRI scheduled for today plan to transfer patient for orthopedic service - Physical Exam General: Alert, In no apparent distress, Oriented x3 HEENT: Atraumatic Neck: Supple Respiratory: Expiratory wheezes Cardiovascular: No edema, Regular rate/rhythm, Normal S1 S2 Gastrointestinal: Normal bowel sounds, Soft and benign Integumentary: No rashes, No breakdown, No significant lesion Neurological: Normal speech, Normal strength at 5/5 x4 extr Review of Systems Per HPI Physical Examination - Vital Signs Temperature: 97.4 F Blood Pressure: 140/69 Pulse: 72 Respirations: 16 Pulse Ox (%): 94 Assessment And Plan - Plan Assessment and Plan (1) COPD exacerbation Current Visit: Yes Status: Acute Plan: Patient is 78 years of age with a history of COPD admitted with acute cough congestion CT scan no evidence of thromboemboli positional changes seem to have improved we will plan to admit treat him with some steroids bronchodilators no evidence of sepsis (2) Dysphagia Current Visit: Yes Status: Acute Plan: Patient is 78 years of age has had recent surgeries and since October 31 has been complaining of difficulty swallowing he only consumes Labs are otherwise unremarkable CT scan report 01/02 MRI scheduled for today, 01/02 Plan to transfer patient for orthopedic services Osteolysis C3. Anterior superior aspects C4 vertebral body has become avulsed from the adjacent bone presumably by bony erosion Prevertebral soft tissue thoracic inlet/upper thoracic spine presumably inflammatory tissue. This is present at the site of prior fluid collection. The upper thoracic esophagus appears compressed by soft tissue The ER physician discussed with Dr. Alcazar evaluate him tomorrow. ENT consult Qualifiers: Dysphagia type: esophageal phase Qualified Code(s): R13.19 - Other dysphagia Speech therapy eval Speech eval completed with modified barium swallow, speech therapy recommends mechanical soft, thin liquid, minced moist diet thin liquids with chin tuck, crush meds Discharge Plan: Home Critical Care: No Time Spent Managing PTS Care (In Minutes): 35
--- NOTE | 2024-01-03 15:52 | P.DS ---
Admission Date: 01/01/24 Discharge Date: 01/04/24 Disposition: TRANSFER TO [facility] Discharge Condition: GOOD Reason for Admission: Shortness of breath chest congestion Brief History of Present Illness: Patient is 78 years of age with a history of COPD became congested short of breath this morning ended up here in the hospital recently had extensive neck surgery is done that started on October 08 the revisions the last 1 was in October 31 he has been complaining of difficulty swallowing since then able to keep soft food and liquids afraid of eating any solid foods. Does take Symbicort at home has any fever or chills - Physical Exam General: Alert, In no apparent distress, Oriented x3 HEENT: Atraumatic Neck: Supple Respiratory: Expiratory wheezes Cardiovascular: No edema, Regular rate/rhythm, Normal S1 S2 Gastrointestinal: Normal bowel sounds, Soft and benign Integumentary: No rashes, No breakdown, No significant lesion Neurological: Normal speech, Normal strength at 5/5 x4 extr Hospital Course: 78 years of age with a history of COPD became congested short of breath this morning ended up here in the hospital recently had extensive neck surgery is done that started on October 08 the revisions the last 1 was in October 31 he has been complaining of difficulty swallowing since then able to keep soft food and liquids afraid of eating any solid foods. Was evaluated by speech for dysphagia. Recommended moist meats, thin liquid chin tuck with swallow, patient was evaluated by orthopedic surgeon, plan to transfer to [facility] for additional orthopedics services Assessment Dysphagia-evaluated by speech therapy Abnormal cervical spine CT-was evaluated by Dr. Alcazar Anterior superior aspects C4 vertebral body has become avulsed from the adjacent bone presumably by bony erosion Plan to transfer to [facility] COPD exacerbation-treated with nebulizers, steroids IV antibiotics Continue home medicines as previously prescribed GOAL: Clear understanding of disease process INSTRUCTIONS: Physician Discharge Instructions: After hospital discharge patient will need to follow-up with orthopedic surgeon -Follow-up with PCP in 1 to 2 weeks after hospital discharge -Please call Dr. Brewer at [phone] if any questions regarding hospital stay -Please call nursing station at [phone] if any nursing or medication questions -Return to the emergency room if symptoms worsen Diet: ADA, low sodium Activity: Fall precautions Vital Signs/Physical Exam: Temp Pulse Resp BP Pulse Ox 97.4 F 72 16 140/69 94 01/03/24 15:47 01/03/24 15:47 01/03/24 15:47 01/03/24 15:47 01/03/24 15:47 Laboratory Data at Discharge: WBC 5.70 thou/uL (4.3-10.9) 01/02/24 02:50 Hgb 10.7 g/dL (13.6-17.9) L 01/02/24 02:50 Hct 32.5 % (39.6-49.0) L 01/02/24 02:50 Plt Count 204 thou/uL (152-406) 01/02/24 02:50 PT 13.9 SECONDS (9.5-12.5) H 01/01/24 15:50 INR 1.27 01/01/24 15:50 Sodium 136 mEq/L (136-145) 01/02/24 02:50 Potassium 3.9 mEq/L (3.5-5.1) 01/02/24 02:50 BUN 12 mg/dL (7-18) 01/02/24 02:50 Creatinine 0.53 mg/dL (0.70-1.30) L 01/02/24 02:50 Glucose 99 mg/dL (74-106) 01/02/24 02:50 Magnesium 1.7 mg/dL (1.6-2.4) 01/01/24 15:50 Total Bilirubin 0.6 mg/dL (0.2-1.0) 01/02/24 02:50 AST 15 U/L (15-37) 01/02/24 02:50 ALT 18 U/L (16-61) 01/02/24 02:50 Alkaline Phosphatase 113 U/L (45-117) 01/02/24 02:50 Home Medications: Atorvastatin Calcium [Lipitor] 40 mg PO BEDTIME 12/03/21 Cyanocobalamin [Vitamin B-12*] 1,000 mcg PO DAILY 12/03/21 Tadalafil [Cialis] 5 mg PO BID 12/03/21 Ubidecarenone [Co Q-10] 100 mg PO DAILY 12/03/21 Furosemide [Lasix*] 20 mg PO PRN PRN 11/02/22 Spironolactone [Aldactone*] 25 mg PO DAILY 11/02/22 Multivit-Mins/Iron/Folic/Lycop [Centrum Men's Tablet] 1 tab PO DAILY 02/16/23 Carvedilol [Coreg] 1 tab PO BID 08/01/23 Nitrofurantoin Monohyd/M-Cryst [Nitrofurantoin Carter-Mcr 100 mg] 100 mg PO DAILY 08/01/23 Ascorbic Acid [Vitamin C] 500 mg PO DAILY 10/05/23 Cholecalciferol (Vitd3)/Vit K2 [K2-D3 10,000 Unit Capsule] 1 each PO DAILY 10/05/23 Magnesium Glycinate, Mag Oxide [Magnesium Glycinate] 120 mg PO DAILY 10/05/23 Hydrocodone Bit/Acetaminophen [Hydrocodon-Acetaminophn 10-325] 1 each PO Q4H PRN 10/19/23 Aspirin 81 mg PO DAILY 10/23/23 Cetirizine HCl [Zyrtec*] 10 mg PO DAILY PRN #30 tab 11/08/23 Docusate [Colace Cap*] 100 mg PO BID #60 cap 11/08/23 Ensure Clear 237 ml PO TID #15 can 11/08/23 Glycerin Adult Suppos [Sani-Supp*] 1 supp SD DAILY PRN #30 supp 11/08/23 Diet: Low sodium Activity: Fall precautions Followup: Ned Quinn, ARAVIND [Primary Care Provider] - Time spent managing pt's care (in minutes): 55
--- NOTE | 2024-01-03 21:14 | RAD REPORT ---
EXAM DESCRIPTION: MRI - C Spine W/Wo Cont - 01/03/2024 1:57 pm CLINICAL HISTORY: Neck pain, dysphagia. History of cervical spine surgery in a probable. History of soft tissue infection COMPARISON: CT neck 01/01/2024 TECHNIQUE: Multiplanar multisequence MRI of the cervical spine, obtained before and after intraven ous administration of 19 mL MultiHance. FINDINGS: Sequelae of anterior plating with interbody spacers spanning C3-C7. Abnormal marrow signal with low T1 signal, mildly increased T2 signal, and corresponding enhancement involving the anterior body of C2, bodies of C3 through T1, as well as the posterior elements of C7 and T1, with similar ma rrow signal abnormalities weighted T2 vertebral bodies, adjacent to the superior endplate. Soft tissue thickening and enhancement along the perifacetal soft tissues spanning C2-C5. Soft tissue thickening anteriorly along the prevertebral soft tissues spanning C6-T1, and they paravertebral ant erior soft tissues spanning C2-C6. Questionable small collection along the left aspect of the hypopha rynx with marginal enhancement measuring 6 millimeter in greatest dimension, with asymmetric effaceme nt of the left pyriform sinus. [id number] circumferential epidural thickening and enhancement spanning C3-T1 with no discrete epidural collections. This contributes to degrees of central canal stenosis stated below. Sequelae of prior bilateral laminectomies spanning C3-C5, with an ill-defined lobulated fluid collect ion with minimal marginal enhancement measuring 1.7 x 1.4 cm in greatest axial dimensions along the s urgical defect opposite C3. Cerebellar tonsils and mid-line skull base show no suspicious finding. No significant finding at the C1 and C2 levels. C2-3 level: No residual central canal stenosis. At least mild bilateral neural foraminal narrowing. C3-4 level: No significant residual central canal stenosis. Moderate to severe left and moderate righ t neural foraminal narrowing. C4-5 level: No residual central canal stenosis. Moderate bilateral neural foraminal narrowing. C5-6 level: Moderate central canal stenosis. Bilateral severe neural foraminal narrowing. C6-7 level: Mild central canal stenosis. Bilateral mild to moderate neural foraminal narrowing. C7-T1 level: No significant central canal stenosis. Bilateral mild neural foraminal narrowing. Cervical cord shows no focal volume loss or edema. Mild focal increased T2 signal along the kruse tamara er bilaterally opposite C4-5, nonspecific. IMPRESSION: Signal abnormality with enhancement spanning C2 through T2 levels as detailed above, con cerning for ongoing osteomyelitis. Soft tissue thickening and enhancement along the prevertebral and paraspinous soft tissues as detaile d above with questionable 6 mm marginally enhancing collection in the left hypopharynx, which may rep resent susceptibility artifact versus a small abscess. [id number]-ut-[id number] circumferential epidural thickening and enhancement spanning C3-T1 levels, likely ph legmonous/ inflammatory, without a discrete epidural fluid collection. The epidural thickening, in combination were spondylotic cervical spine changes as above, contributes to moderate central canal stenosis at C5-6 and mild stenosis at C6-7 levels. Variable degrees of ginna ral foraminal narrowing, most pronounced at C5-6 bilaterally.
[2024-01-04] MEDS: VANCOMYCIN 1.5 GM in NA CHLORIDE 0.9% 500 ML IVPB SCH (11:22)
[2024-01-04 16:26] VITALS: O2SAT 96
[2024-01-04 22:31] VITALS: BP 154/83; TEMP 97.1
== END 2024-01-04 22:40 | disposition short-term general hospital (02) | DRG 192 ==
LOC: ER 15:18 → ERHOLD 21:10 → 2ND 22:02
PROVIDERS: ADMIT Internal Medicine Sleep Medicine; ATTEND Hospitalist
DX: J44.1 Chronic obstructive pulmonary disease with (acute) exacerbation (principal); M89.58 Osteolysis, other site; I10 Essential (primary) hypertension; E78.5 Hyperlipidemia, unspecified; G62.9 Polyneuropathy, unspecified; I25.10 Atherosclerotic heart disease of native coronary artery without angina pectoris; R13.19 Other dysphagia; Z95.1 Presence of aortocoronary bypass graft; Z11.52 Encounter for screening for COVID-19; Z86.16 Personal history of COVID-19; Z79.82 Long term (current) use of aspirin; Z85.46 Personal history of malignant neoplasm of prostate; Z91.030 Bee allergy status; Z79.899 Other long term (current) drug therapy
CPT/HCPCS: 36415; 70450; 70491; 71045; 71275; 72156; 74230; 80048; 80053; 80076; 83735; 83880; 84484; 85025; 85610; 87804; 87811; 92526; 92611; 93005; 94640; 96374; 99285; A9577; J3010; J3535; J7030; J7040; J7512; J7644; Q9967